=== PATIENT | male | born 1955 | race Caucasian/White ===

== ENCOUNTER 2018-07-19 12:20 | Inpatient (IN) | payer OTHER ==
--- NOTE | 2018-07-19 12:43 | PDOC ---
History of Present Illness - General History Source: [facility] Records - History of Present Illness Associated Symptoms: reports: fever/chills <KimmieGabriela - Last Filed: 07/19/18 16:26> <Naa Sotelo - Last Filed: 07/21/18 09:31> - General Chief Complaint: SIRS, Suspected/Possible Stated Complaint: FEVER Time Seen by Provider: 07/19/18 12:26 Past History - Past Medical History Anemia: Yes Cardiac Disorders: Yes (cad) COPD: No DVT: Yes Dialysis: Yes (t.t.sat) GI Disorders: Yes (gerd,dysphagia) HTN: Yes Hypercholesterolemia: Yes - Surgical History Cardiac Surgery: Yes (cabg) - Suicide/Smoking/Psychosocial Hx Smoking History: Never smoked Hx Alcohol Use: No Drug/Substance Use Hx: No Substance Use Type: None <KimmieGabriela - Last Filed: 07/19/18 16:26> <Naa Sotelo - Last Filed: 07/21/18 09:31> - Past Medical History Allergies/Adverse Reactions: Allergies Allergy/AdvReac Type Severity Reaction Status Date / Time No Known Allergies Allergy Verified 07/19/18 12:22 Home Medications: Ambulatory Orders Acetaminophen [Tylenol] 650 mg PO Q6H PRN 07/19/18 Amlodipine Besylate [Norvasc -] 10 mg PO DAILY 07/19/18 Aspirin [Ecotrin] 325 mg PO DAILY 07/19/18 Atorvastatin Ca [Lipitor] 20 mg PO HS 07/19/18 Calcium Acetate [Phoslo -] 667 mg PO TIDCM 07/19/18 Carvedilol [Coreg -] 12.5 mg PO BID 07/19/18 Clonidine Patch [Catapres Tts Patch -] 0.2 mg TD MCMULLEN 07/19/18 Docusate Sodium [Colace -] 100 mg PO BID 07/19/18 Ergocalciferol [Vitamin D2] 50,000 unit PO MCMULLEN 07/19/18 Folic Acid - 1 mg PO DAILY 07/19/18 Insulin Lispro [Humalog] 0 unit SQ BID PRN 07/19/18 Metoprolol Tartrate [Lopressor -] 50 mg PO BID 07/19/18 Pantoprazole Sodium [Protonix] 40 mg PO DAILY 07/19/18 hydrALAZINE HCL [Apresoline -] 25 mg PO TID 07/19/18 Review of Systems - Review of Systems Able to Perform ROS?: No <BelarusianGabriela - Last Filed: 07/19/18 16:26> *Physical Exam - Vital Signs Last Vital Signs Temp Pulse Resp BP Pulse Ox 100.2 F H 74 20 212/77 87 L 07/19/18 12:22 07/19/18 12:22 07/19/18 12:22 07/19/18 12:22 07/19/18 12:22 - Physical Exam General Appearance: Yes: Mild Distress Neck: positive: Other (distended neck veins on the R) Respiratory/Chest: positive: Decreased Breath Sounds (on the R) Cardiovascular: positive: Regular Rate, S1, S2 Gastrointestinal/Abdominal: positive: Soft. negative: Distended Extremity: positive: Normal Inspection, Other (clead, dry, pressure ulcer to r heel, no e/o infxn) Integumentary: positive: Dry, Warm Neurologic: positive: Alert <BelarusianGabriela - Last Filed: 07/19/18 16:26> - Vital Signs Last Vital Signs Temp Pulse Resp BP Pulse Ox 99.2 F 75 18 144/65 95 07/21/18 05:46 07/21/18 05:46 07/21/18 05:46 07/21/18 05:46 07/20/18 20:55 <Naa Sotelo - Last Filed: 07/21/18 09:31> ED Treatment Course - LABORATORY CBC & Chemistry Diagram: 07/19/18 12:47 07/19/18 12:47 <Gabriela Burks - Last Filed: 07/19/18 16:26> - LABORATORY CBC & Chemistry Diagram: 07/20/18 06:30 07/20/18 06:30 - ADDITIONAL ORDERS Additional order review: 07/19/18 12:47 Blood Culture - Preliminary Blood - Peripheral Venous NO GROWTH OBTAINED AFTER 24 HOURS, INCUBATION TO CONTINUE FOR 4 DAYS. 07/19/18 12:47 Blood Culture - Preliminary Blood - Peripheral Venous NO GROWTH OBTAINED AFTER 24 HOURS, INCUBATION TO CONTINUE FOR 4 DAYS. 07/19/18 13:05 Urine Culture - Final Urine - Urine Clean Catch NO GROWTH OBTAINED 07/19/18 12:47 RBC 3.87 L MCV 85.0 MCHC 33.1 RDW 16.3 H MPV 8.3 Neutrophils % 56.4 Lymphocytes % 19.5 Monocytes % 9.8 Eosinophils % 13.5 H Basophils % 0.8 - RADIOLOGY Radiology Studies Ordered: Category Date Time Status CHEST X-RAY PORTABLE* [RAD] Stat Radiology 07/19/18 12:24 Completed - Medications Given in the ED: ED Medications Discontinued Medications Generic Name Dose Route Start Last Admin Trade Name Freq PRN Reason Stop Dose Admin Amlodipine Besylate 10 mg 07/19/18 14:37 07/19/18 14:59 Norvasc - PO 07/19/18 14:38 10 mg ONCE ONE Administration Carvedilol 12.5 mg 07/19/18 14:37 07/19/18 14:59 Coreg - PO 07/19/18 14:38 12.5 mg ONCE ONE Administration Carvedilol 12.5 mg 07/19/18 22:00 07/20/18 09:21 Coreg - PO 12.5 mg BID BRAD Administration Carvedilol 12.5 mg 07/20/18 11:22 07/20/18 11:36 Coreg - PO 07/20/18 11:23 12.5 mg ONCE ONE Administration Azithromycin 500 mg/ Dextrose 250 mls @ 250 mls/hr 07/19/18 14:02 07/19/18 14 :53 IVPB 07/19/18 15:01 250 mls/hr ONCE ONE Administration Cefepime HCl 1 gm in 50 mls @ 100 mls/hr 07/19/18 14:02 07/19/18 14:53 Maxipime 1 Gm Premix Ivpb IVPB 07/19/18 14:31 Not Given ONCE ONE Protocol Vancomycin HCl 1,000 mg/ 250 mls @ 250 mls/hr 07/19/18 14:02 07/19/18 15:50 Dextrose IVPB 07/19/18 15:01 250 mls/hr ONCE ONE Administration Protocol Cefepime HCl 1 gm in 50 mls @ 100 mls/hr 07/19/18 14:35 07/19/18 14:39 Maxipime 1 Gm Premix Ivpb IVPB 07/19/18 15:04 100 mls/hr ONCE ONE Administration Protocol Metoprolol Tartrate 50 mg 07/19/18 14:37 08/28/18 14:59 Lopressor - PO 07/19/18 14:38 50 mg ONCE ONE Administration Nifedipine 30 mg 07/20/18 10:00 07/20/18 09:19 Procardia Xl - PO 30 mg DAILY BRAD Administration Pneumococcal 13-Valent Conj Vacc 0.5 ml 07/20/18 10:00 07/20/18 09:37 Prevnar 13 Syringe - IM 07/20/18 10:01 Not Given .ONCE ONE <Naa Sotelo - Last Filed: 07/21/18 09:31> Medical Decision Making - Medical Decision Making 07/19/18 12:37 63-year-old male, history of IDDM, HTN, HLD, CAD s/p CABD, ESRD on HD via R chest port (T/T/S), last dialyzed 4 days ago, due for next session today but sent to ED by [facility] for fever of 101 F today. Patient unable to give history given current medical conditions See exam Fever R/o sepsis Low grade fever w/ 87% sat on RA and decreased BS on R Of note, CT chest 06/28 w/ large located effusion and infiltrates, not currently on abx, due for HD today -tylenol -labs -mccabe cx -cxr -ekg -renal c/s for HD today -admit 07/19/18 14:00 07/19/18 14:04 Labs remarkable for sodium of 126, K wnl. UA with 1+ LE and wbc of 44, no nitrite. Chest x-ray read as congestive changes with right-sided effusion and base atelectasis versus infiltrate. Given fever and hypoxia, will give dose of antibiotics in ED to cover possibly hospital acquired pneumonia. Might need pulm consult for input while inhouse. Pending renal consult to arrange HD today. Will arrange admission at this time 07/19/18 14:14 Case d/w Dr Siu of renal who states he will come down to ED to evaluate patient 07/19/18 14:38 Dr Siu at bedside. Recommends treating patient's significantly elevated BP. Also recommending the patient be admitted to telemetry for close observation. Pending call back from Dr. Davenport to admit 07/19/18 16:27 Case d/w Dr Davenport and patient admitted to telemetry. For HD @10pm tonight per renal <Gabriela Burks - Last Filed: 07/19/18 16:26> *DC/Admit/Observation/Transfer - Discharge Dispostion Decision to Admit order: Yes <Gabriela Burks - Last Filed: 07/19/18 16:26> - Attestations Physician Attestion: I reviewed the case with the mid-level practitioner and agree with the mid- level practitioner's assessment, diagnosis and disposition. <Naa Sotelo - Last Filed: 07/21/18 09:31> Diagnosis at time of Disposition: Hypoxia Fever Qualifiers: Fever type: unspecified Qualified Code(s): R50.9 - Fever, unspecified - Discharge Dispostion Condition at time of disposition: Fair
[2018-07-19 13:03] LABS: BASO % 0.8 % (0-2.0); EOS % 13.5 % (0-4.5); HEMATOCRIT 32.9 % (35.4-49); HEMOGLOBIN 10.9 GM/dL (11.7-16.9); LYMPH % 19.5 % (8-40); MCH 28.1 pg (25.7-33.7); MCHC 33.1 g/dl (32.0-35.9); MEAN PLT VOLUME 8.3 fl (7.5-11.1); MONO % 9.8 % (3.8-10.2); NEUT % 56.4 % (42.8-82.8); PLATELET COUNT 168 K/MM3 (134-434); RBC 3.87 M/mm3 (4.00-5.60); RDW 16.3 % (11.9-15.9); WHITE BLOOD COUNT 4.5 K/mm3 (4.0-10.0)
[2018-07-19 13:25] LABS: INR 0.97 (0.83-1.09)
[2018-07-19 13:28] LABS: ACTIVATED PTT 35.3 SECONDS (25.2-36.5)
[2018-07-19 13:35] LABS: URINE APPEARANCE SLCLOUDY; URINE BILIRUBIN NEGATIVE (<2.0 mg/dL); URINE COLOR LTYELLOW; URINE GLUCOSE (UA) 2+ (NEGATIVE); URINE KETONE NEGATIVE (NEGATIVE); URINE LEUK ESTERASE 1+ (NEGATIVE); URINE NITRITE NEGATIVE (NEGATIVE); URINE PROTEIN 3+ (NEGATIVE); URINE UROBILINOGEN NEGATIVE mg/dL (0.2-1.0)
[2018-07-19 13:38] LABS: ALBUMIN 3.2 g/dl (3.4-5.0); ALK PHOS 126 U/L (45-117); ANION GAP 10 MMOL/L (8-16); BILIRUBIN,TOTAL 0.5 mg/dL (0.2-1.0); BLOOD UREA NITROGEN 65 mg/dL (7-18); CALCIUM 8.8 mg/dL (8.5-10.1); CHLORIDE 91 mmol/L (98-107); CO2 25 mmol/L (21-32); CREATININE 7.3 mg/dL (0.7-1.3); GLUCOSE,RANDOM 91 mg/dL (74-106); SGOT/AST 26 U/L (15-37); SGPT/ALT 46 U/L (12-78); SODIUM 126 mmol/L (136-145)
[2018-07-19 13:38] LABS: EPI CELLS RARE /HPF (FEW)
[2018-07-19] MEDS ORDERED: AZITHROMYCIN IVPB 500 MG in DEXTROSE 5%-WATER - 250 ML IVPB ONE (14:02)
[2018-07-19] MEDS ORDERED: VANCOMYCIN 1,000 MG in DEXTROSE 5%-WATER - 250 ML IVPB ONE (14:02)
[2018-07-19] MEDS ORDERED: AZITHROMYCIN IVPB 250 ML IVPB ONE (14:31)
[2018-07-19] MEDS ORDERED: VANCOMYCIN 1 GRAM (PRE-DOCKED) 1,000 MG/250 ML BAG IVPB ONE (14:32)
[2018-07-19] MEDS ORDERED: CEFEPIME 1 GM/100 ML BAG IVPB ONE (14:32)
[2018-07-19] MEDS ORDERED: CEFEPIME HCL/D5W 1 GM/50 ML BAG IVPB ONE (14:35)
[2018-07-19] MEDS ORDERED: CARVEDILOL 12.5 MG TABLET (FP) PO ONE (14:37)
[2018-07-19] MEDS ORDERED: amLODIPine BESYLATE 10 MG TABLET (FP) PO ONE (14:37)
[2018-07-19] MEDS ORDERED: METOPROLOL TARTRATE 50 MG TABLET (FP) PO ONE (14:37)
[2018-07-19] MEDS: CEFEPIME HCL/D5W 1 GM/50 ML BAG IVPB ONE ×2 (14:38→14:53)
[2018-07-19] MEDS ORDERED: CARVEDILOL 12.5 MG TABLET (FP) ONE (14:55)
[2018-07-19] MEDS ORDERED: amLODIPine BESYLATE 5 MG TABLET (FP) ONE (14:55)
--- NOTE | 2018-07-19 18:53 | CONSULT ---
Consult Consult Specialty:: Nephrology Reason for Consultation:: ESRD - History of Present Illness Chief Complaint: sent in for fever History of Present Illness: Pt is a 63 year old male with pmhx of ESRD, HTN, CAD, CABG, and DM who was sent in from [facility] for fever. He is on a TTS HD schedule. He is awake and knows he was sent to the ER for a fever. He does complain of cough. He denies worsening of shortness of breath. He denies chills. He is overall a poor historian. Pt was found to be desaturating at room air and started on oxygen. He gets HD via a chest wall permacath. He does not know how old the permacath is. - History Source History Provided By: Patient, Medical Record - Past Medical History Cardio/Vascular: Yes: CAD, HTN, Hyperlipdemia Gastrointestinal: Yes: Constipation Renal/: Yes: Renal Failure, Hemodialysis Heme/Onc: Yes: Anemia - Past Surgical History Past Surgical History: Yes: CABG - Alcohol/Substance Use Hx Alcohol Use: No - Smoking History Smoking history: Never smoked Home Medications - Allergies Allergies/Adverse Reactions: Allergies Allergy/AdvReac Type Severity Reaction Status Date / Time No Known Allergies Allergy Verified 07/19/18 12:22 - Home Medications Home Medications: Ambulatory Orders Acetaminophen [Tylenol] 650 mg PO Q6H PRN 07/19/18 Amlodipine Besylate [Norvasc -] 10 mg PO DAILY 07/19/18 Aspirin [Ecotrin] 325 mg PO DAILY 07/19/18 Atorvastatin Ca [Lipitor] 20 mg PO HS 07/19/18 Calcium Acetate [Phoslo -] 667 mg PO TIDCM 07/19/18 Carvedilol [Coreg -] 12.5 mg PO BID 07/19/18 Clonidine Patch [Catapres Tts Patch -] 0.2 mg TD MCMULLEN 07/19/18 Docusate Sodium [Colace -] 100 mg PO BID 07/19/18 Ergocalciferol [Vitamin D2] 50,000 unit PO MCMULLEN 07/19/18 Folic Acid - 1 mg PO DAILY 07/19/18 Insulin Lispro [Humalog] 0 unit SQ BID PRN 07/19/18 Metoprolol Tartrate [Lopressor -] 50 mg PO BID 07/19/18 Pantoprazole Sodium [Protonix] 40 mg PO DAILY 07/19/18 hydrALAZINE HCL [Apresoline -] 25 mg PO TID 07/19/18 Family Disease History - Family Disease History Family History: Denies Review of Systems - Review of Systems Constitutional: reports: Malaise Eyes: reports: No Symptoms HENT: reports: No Symptoms Neck: reports: No Symptoms Cardiovascular: reports: Shortness of Breath. denies: Chest Pain Respiratory: reports: Cough, SOB on Exertion Genitourinary: reports: No Symptoms Musculoskeletal: reports: No Symptoms Integumentary: reports: No Symptoms Neurological: reports: No Symptoms Endocrine: reports: No Symptoms Hematology/Lymphatic: reports: No Symptoms Psychiatric: reports: No Symptoms Physical Exam Vital Signs: Vital Signs Temperature 99.5 F 07/19/18 16:30 Pulse Rate 64 07/19/18 16:30 Respiratory Rate 15 07/19/18 16:30 Blood Pressure 152/83 07/19/18 16:30 O2 Sat by Pulse Oximetry (%) 99 07/19/18 16:30 Constitutional: Yes: Calm Eyes: Yes: Conjunctiva Clear HENT: Yes: Atraumatic Neck: Yes: Supple Cardiovascular: Yes: S1, S2 Respiratory: Yes: On Nasal O2, Rhonchi Gastrointestinal: Yes: Soft Renal/: Yes: WNL Musculoskeletal: Yes: WNL Edema: Yes Edema: LLE: Trace, RLE: Trace Neurological: Yes: Oriented Psychiatric: Yes: Oriented Labs: CBC, BMP 07/19/18 12:47 07/19/18 12:47 Microbiology Laboratory Tests 07/19/18 07/19/18 07/19/18 12:47 12:47 13:15 Hgb 10.9 L Sodium 126 L Potassium 5.0 BUN 65 H Creatinine 7.3 H Urine Protein 3+ H Imaging - Results Chest X-ray: Report Reviewed Problem List - Problems (1) ESRD (end stage renal disease) Code(s): N18.6 - END STAGE RENAL DISEASE (2) HTN (hypertension) Code(s): I10 - ESSENTIAL (PRIMARY) HYPERTENSION (3) CAD (coronary artery disease) Code(s): I25.10 - ATHSCL HEART DISEASE OF [place] CORONARY ARTERY W/O ANG PCTRS (4) Hyponatremia Code(s): E87.1 - HYPO-OSMOLALITY AND HYPONATREMIA (5) Fever Code(s): R50.9 - FEVER, UNSPECIFIED Qualifiers: Fever type: unspecified Qualified Code(s): R50.9 - Fever, unspecified (6) Hypoxia Code(s): R09.02 - HYPOXEMIA Assessment/Plan Impression 1. ESRD 2. hyponatremia 3. PNA 4. sepsis 5. pleural effusion 6. CAD 7. hx CABG 8. DM 9. HLD 10. anemia 11. hypoxia Plan - will arrange for HD today - resume bp meds - bp improved with coreg and norvasc in ER - will need to be admitted to a monitored setting - start abx - follow cultures - epogen for anemia - monitor blood sugar - discussed with ER team at bedside - will follow pt Dr Siu
[2018-07-19] MEDS ORDERED: SODIUM CHLORIDE 250 ML IV PRN (18:59)
[2018-07-19] MEDS ORDERED: ACETAMINOPHEN 325 MG TABLET (FP) PO PRN (20:47)
[2018-07-19] MEDS ORDERED: METOPROLOL TARTRATE 50 MG TABLET (FP) PO SCH (22:00)
[2018-07-20] MEDS: hydrALAZINE HCL 25 MG TABLET (FP) PO SCH ×5 (00:20→21:27)
[2018-07-20] MEDS: cloNIDine-TTS 0.2 MG/24 HOURS PATCH.TDWK TD SCH ×2 (00:21→02:31)
[2018-07-20] MEDS: HEPARIN NA (PORCINE) 5,000 UNITS/ML 1ML VIAL SQ SCH ×4 (00:30→21:33)
[2018-07-20] MEDS: DOCUSATE SODIUM 100 MG CAPSULE (FP) PO SCH ×4 (00:30→21:28)
[2018-07-20] MEDS: CARVEDILOL 12.5 MG TABLET (FP) PO SCH ×3 (00:30→09:21)
[2018-07-20] MEDS: ATORVASTATIN CA 20 MG TABLET (FP) PO SCH ×3 (00:31→21:27)
[2018-07-20 07:25] LABS: BASO % 0.9 % (0-2.0); EOS % 25.4 % (0-4.5); HEMATOCRIT 30.5 % (35.4-49); HEMOGLOBIN 10.3 GM/dL (11.7-16.9); LYMPH % 23.1 % (8-40); MCH 28.2 pg (25.7-33.7); MCHC 33.7 g/dl (32.0-35.9); MEAN CELL VOLUME 83.7 fl (80-96); MEAN PLT VOLUME 8.2 fl (7.5-11.1); MONO % 13.7 % (3.8-10.2); NEUT % 36.9 % (42.8-82.8); PLATELET COUNT 146 K/MM3 (134-434); RBC 3.65 M/mm3 (4.00-5.60); RDW 16.4 % (11.9-15.9); WHITE BLOOD COUNT 3.1 K/mm3 (4.0-10.0)
[2018-07-20 07:53] LABS: ALBUMIN 2.9 g/dl (3.4-5.0); ANION GAP 6 MMOL/L (8-16); BILIRUBIN,TOTAL 0.6 mg/dL (0.2-1.0); BLOOD UREA NITROGEN 25 mg/dL (7-18); CALCIUM 8.4 mg/dL (8.5-10.1); CHLORIDE 98 mmol/L (98-107); CO2 33 mmol/L (21-32); GLUCOSE,RANDOM 80 mg/dL (74-106); POTASSIUM 3.6 mmol/L (3.5-5.1); SODIUM 137 mmol/L (136-145)
[2018-07-20 07:56] LABS: ALK PHOS 118 U/L (45-117); SGOT/AST 24 U/L (15-37); SGPT/ALT 41 U/L (12-78); TOT PROT 6.2 g/dl (6.4-8.2)
[2018-07-20] MEDS: CALCIUM ACETATE 667 MG CAPSULE (FP) PO SCH ×3 (08:00→17:54)
[2018-07-20] MEDS: ASPIRIN 325 MG ENTERIC COATED TABLET (FP) PO SCH (09:18)
[2018-07-20] MEDS: PANTOPRAZOLE 40 MG TABLET (FP) PO SCH (09:18)
[2018-07-20] MEDS: FOLIC ACID 1 MG TABLET (FP) PO SCH (09:19)
[2018-07-20] MEDS ORDERED: PNEUMOC 13-VAL CONJ-DIP CRM/PF 0.5 ML DISP.SYRIN IM ONE (10:00)
[2018-07-20] MEDS ORDERED: NIFEdipine E.R. 30 MG TABLET (FP) PO SCH (10:00)
--- NOTE | 2018-07-20 10:11 | HP ---
Admitting History and Physical - Primary Care Physician PCP: Maddie Davenport - Admission Chief Complaint: sent from group home due to fever History of Present Illness: patient seen and examined Case was discussed with emergency room physician last night Currently admitted in telemetry In summary Pt is a 63 year old male with pmhx of ESRD on TTS HD, HTN, CAD, CABG, and DM who was sent in from [facility] for fever 101. He reported cough, but denied worsening of shortness of breath or chest pain. He denies chills. Pt was found to be hypoxic at room air with volume overload and dialyzed over night with improvement in symptoms. He gets HD via a chest wall permacath . patient also given enteric antibiotics for questionable pneumonia cultures was taken Patient also underwent emergent dialysis--due to volume overload and uncontrolled blood pressure Patient seen by me in the telemetry today Comfortable Feels better denies chest pain Decreased shortness of breath Patient is poor historian--unable to tell me how long he is on dialysis Has right-sided Port-A-Cath Afebrile today History Source: Medical Record Limitations to Obtaining History: Clinical Condition, Poor Historian - Past Medical History Cardiovascular: Yes: CAD, HTN, Hyperlipdemia Gastrointestinal: Yes: Constipation Renal/: Yes: Renal Failure, Hemodialysis Heme/Onc: Yes: Anemia - Past Surgical History Past Surgical History: Yes: CABG - Smoking History Smoking history: Never smoked - Alcohol/Substance Use Hx Alcohol Use: No Home Medications - Allergies Allergies/Adverse Reactions: Allergies Allergy/AdvReac Type Severity Reaction Status Date / Time No Known Allergies Allergy Verified 07/19/18 12:22 - Home Medications Home Medications: Ambulatory Orders Acetaminophen [Tylenol] 650 mg PO Q6H PRN 07/19/18 Amlodipine Besylate [Norvasc -] 10 mg PO DAILY 07/19/18 Aspirin [Ecotrin] 325 mg PO DAILY 07/19/18 Atorvastatin Ca [Lipitor] 20 mg PO HS 07/19/18 Calcium Acetate [Phoslo -] 667 mg PO TIDCM 07/19/18 Carvedilol [Coreg -] 12.5 mg PO BID 07/19/18 Clonidine Patch [Catapres Tts Patch -] 0.2 mg TD MCMULLEN 07/19/18 Docusate Sodium [Colace -] 100 mg PO BID 07/19/18 Ergocalciferol [Vitamin D2] 50,000 unit PO MCMULLEN 07/19/18 Folic Acid - 1 mg PO DAILY 07/19/18 Insulin Lispro [Humalog] 0 unit SQ BID PRN 07/19/18 Metoprolol Tartrate [Lopressor -] 50 mg PO BID 07/19/18 Pantoprazole Sodium [Protonix] 40 mg PO DAILY 07/19/18 hydrALAZINE HCL [Apresoline -] 25 mg PO TID 07/19/18 Review of Systems - Review of Systems Constitutional: reports: Fever Eyes: reports: No Symptoms Neck: reports: No Symptoms Respiratory: reports: SOB Gastrointestinal: reports: No Symptoms Neurological: reports: No Symptoms Psychiatric: reports: No Symptoms Physical Examination Vital Signs: Vital Signs Temperature 98.6 F 07/20/18 08:00 Pulse Rate 72 07/20/18 08:00 Respiratory Rate 22 07/20/18 08:00 Blood Pressure 186/85 07/20/18 08:00 O2 Sat by Pulse Oximetry (%) 95 07/20/18 09:00 Constitutional: Yes: No Distress, Calm Eyes: Yes: Conjunctiva Clear Neck: Yes: Supple, Other (No JVD) Cardiovascular: Yes: Regular Rate and Rhythm Respiratory: Yes: Diminished Gastrointestinal: Yes: Soft Edema: No Neurological: Yes: Alert (poor historian. Nonfocal exam) Labs: CBC, BMP 07/20/18 06:30 07/20/18 06:30 Imaging - Results Chest X-ray: Report Reviewed EKG: Report Reviewed Problem List - Problems (1) CAD (coronary artery disease) Code(s): I25.10 - ATHSCL HEART DISEASE OF [place] CORONARY ARTERY W/O ANG PCTRS Qualifiers: Coronary Disease-Associated Artery/Lesion type: [place] artery [place] vs. transplanted heart: [place] heart Associated angina: without angina Qualified Code(s): I25.10 - Atherosclerotic heart disease of [place] coronary artery without angina pectoris (2) Fever Code(s): R50.9 - FEVER, UNSPECIFIED Qualifiers: Fever type: unspecified Qualified Code(s): R50.9 - Fever, unspecified (3) Hypertensive cardiomyopathy Code(s): I11.9 - HYPERTENSIVE HEART DISEASE WITHOUT HEART FAILURE; I43 - CARDIOMYOPATHY IN DISEASES CLASSIFIED ELSEWHERE Qualifiers: Heart failure presence: with heart failure Qualified Code(s): I11.0 - Hypertensive heart disease with heart failure; I43 - Cardiomyopathy in diseases classified elsewhere (4) Hypoxia Code(s): R09.02 - HYPOXEMIA Assessment/Plan monitor on telemetry Consult pulmonary and cardiology Hold antibiotics--- doubt pneumonia Will consult ID also dialysis as per renal Increase Procardia check echocardiogram Monitor blood sugar Overall condition guarded due to multiple comorbidities Will follow Discussed with nursing staff also.
--- NOTE | 2018-07-20 10:48 | EKG ---
Test Reason : Blood Pressure : / mmHG Vent. Rate : 068 BPM Atrial Rate : 068 BPM P-R Int : 166 ms QRS Dur : 092 ms QT Int : 424 ms P-R-T Axes : 003 006 083 degrees QTc Int : 450 ms NORMAL SINUS RHYTHM INCOMPLETE RIGHT BUNDLE BRANCH BLOCK ANTEROSEPTAL INFARCT , AGE UNDETERMINED ABNORMAL ECG NO PREVIOUS ECGS AVAILABLE Confirmed by EUGENE ORTEGA MD ([id number]) on 07/20/2018 10:48:35 AM Referred By: Confirmed By:EUGENE ORTEGA MD
--- NOTE | 2018-07-20 11:08 | CON.CARD ---
Consult Consult Specialty:: Cardiology Referred by:: Maddie Davenport MD Reason for Consultation:: CAD s/p CABG, HTN urgency - History of Present Illness Chief Complaint: Fever History of Present Illness: Pt is a 63 year old male with pmhx of ESRD on TTS HD, HTN, CAD, CABG, and DM who was sent in from [facility] for fever 101. He reported cough, but denied worsening of shortness of breath or chest pain. He denies chills. He is overall a poor historian. Pt was found to be hypoxic at room air with volume overload and dialyzed overnght with improvement in symptoms. He gets HD via a chest wall permacath of unknown age, found to have elevated BP, HD overnight, no longer febrile. - History Source History Provided By: Medical Record Limitations to Obtaining History: Poor Historian - Past Medical History Cardio/Vascular: Yes: CAD, HTN, Hyperlipdemia Gastrointestinal: Yes: Constipation Renal/: Yes: Renal Failure, Hemodialysis - Past Surgical History Past Surgical History: Yes: CABG - Alcohol/Substance Use Hx Alcohol Use: No - Smoking History Smoking history: Never smoked Home Medications - Allergies Allergies/Adverse Reactions: Allergies Allergy/AdvReac Type Severity Reaction Status Date / Time No Known Allergies Allergy Verified 07/19/18 12:22 - Home Medications Home Medications: Ambulatory Orders Acetaminophen [Tylenol] 650 mg PO Q6H PRN 07/19/18 Amlodipine Besylate [Norvasc -] 10 mg PO DAILY 07/19/18 Aspirin [Ecotrin] 325 mg PO DAILY 07/19/18 Atorvastatin Ca [Lipitor] 20 mg PO HS 07/19/18 Calcium Acetate [Phoslo -] 667 mg PO TIDCM 07/19/18 Carvedilol [Coreg -] 12.5 mg PO BID 07/19/18 Clonidine Patch [Catapres Tts Patch -] 0.2 mg TD MCMULLEN 07/19/18 Docusate Sodium [Colace -] 100 mg PO BID 07/19/18 Ergocalciferol [Vitamin D2] 50,000 unit PO MCMULLEN 07/19/18 Folic Acid - 1 mg PO DAILY 07/19/18 Insulin Lispro [Humalog] 0 unit SQ BID PRN 07/19/18 Metoprolol Tartrate [Lopressor -] 50 mg PO BID 07/19/18 Pantoprazole Sodium [Protonix] 40 mg PO DAILY 07/19/18 hydrALAZINE HCL [Apresoline -] 25 mg PO TID 07/19/18 Review of Systems - Review of Systems Constitutional: reports: Fever Vital Signs: Vital Signs Temperature 98.6 F 07/20/18 08:00 Pulse Rate 72 07/20/18 08:00 Respiratory Rate 22 07/20/18 08:00 Blood Pressure 186/85 07/20/18 08:00 O2 Sat by Pulse Oximetry (%) 95 07/20/18 09:00 Constitutional: Yes: No Distress, Calm, Thin Neck: Yes: Supple Respiratory: Yes: Regular, Diminished, On Nasal O2 Gastrointestinal: Yes: Normal Bowel Sounds, Soft Cardiovascular: Yes: Regular Rate and Rhythm JVD: No Carotid Bruit: No Heart Sounds: Yes: S1, S2 Murmur: Yes: Systolic Murmur, Grade 1 Edema: No - Other Data Labs, Other Data: CBC, BMP 07/20/18 06:30 07/20/18 06:30 INR, PTT INR 0.97 (0.83-1.09) 07/19/18 12:47 Troponin, BNP 07/19/18 07/19/18 12:47 13:15 Troponin I 0.02 B-Natriuretic Peptide 69621.98 H Troponin, BNP 07/19/18 07/19/18 12:47 13:15 Troponin I 0.02 B-Natriuretic Peptide 70610.98 H Imaging - Results Chest X-ray: Report Reviewed (R>L effusion, congestion) Problem List - Problems (1) CAD (coronary artery disease) Code(s): I25.10 - ATHSCL HEART DISEASE OF [place] CORONARY ARTERY W/O ANG PCTRS Qualifiers: Coronary Disease-Associated Artery/Lesion type: [place] artery [place] vs. transplanted heart: [place] heart Associated angina: without angina Qualified Code(s): I25.10 - Atherosclerotic heart disease of [place] coronary artery without angina pectoris (2) ESRD (end stage renal disease) Code(s): N18.6 - END STAGE RENAL DISEASE (3) Fever Code(s): R50.9 - FEVER, UNSPECIFIED Qualifiers: Fever type: unspecified Qualified Code(s): R50.9 - Fever, unspecified (4) Hypoxia Code(s): R09.02 - HYPOXEMIA (5) S/P CABG (coronary artery bypass graft) Code(s): Z95.1 - PRESENCE OF AORTOCORONARY BYPASS GRAFT (6) Hypertensive cardiomyopathy Code(s): I11.9 - HYPERTENSIVE HEART DISEASE WITHOUT HEART FAILURE; I43 - CARDIOMYOPATHY IN DISEASES CLASSIFIED ELSEWHERE Qualifiers: Heart failure presence: with heart failure Qualified Code(s): I11.0 - Hypertensive heart disease with heart failure; I43 - Cardiomyopathy in diseases classified elsewhere (7) Acute on chronic diastolic heart failure Code(s): I50.33 - ACUTE ON CHRONIC DIASTOLIC (CONGESTIVE) HEART FAILURE Assessment/Plan 1. Acute hypoxic respiratory failure referable to 2. Acute on chronic diastolic failure with pleural effusions R>L 3. ESRD on HD TTS 4. CAD s/p CABG, angina pectoris 5. HTN urgency 6. Fever, r/o sepsis 7. Type 2 DM 8. Hyperlipidemia 9. Anemia of CKD 10. Hyponatremia resolved P:1. Volume removal via HD, wean FIO2 as tolerated 2. Observe off empiric abx with f/u C&S 3. Agree with Procardia XL 60 qd, continue ASA 325 qd, Lipitor 20 qhs, increased carvedilol 25 bid, catapres patch, hydralazine 25 tid with uptitration as tolerated, consider ARB if hyperkalemia not an issue 4. F/u echocardiogram to assess ventricular and valve fxn 5. DVT and GI prophylaxis 6. Thank you for consultative opportunity
[2018-07-20] MEDS: NIFEdipine E.R 60 MG TABLET (UD) PO SCH (11:10)
[2018-07-20] MEDS ORDERED: CARVEDILOL 12.5 MG TABLET (FP) PO ONE (11:22)
--- NOTE | 2018-07-20 11:22 | PN ---
Progress Note, Physician History of Present Illness: Pt seen and examined at bedside. He is awake and alert. He tolerated HD yesterday. - Current Medication List Current Medications: Active Medications Acetaminophen (Tylenol -) 650 mg PO Q6H PRN PRN Reason: FEVER Last Admin: 07/20/18 02:32 Dose: 650 mg Aspirin (Ecotrin -) 325 mg PO DAILY [facility] Last Admin: 07/20/18 09:18 Dose: 325 mg Atorvastatin Calcium (Lipitor -) 20 mg PO HS [facility] Last Admin: 07/20/18 02:32 Dose: 20 mg Calcium Acetate (Phoslo -) 667 mg PO TIDCM [facility] Last Admin: 07/20/18 08:00 Dose: 667 mg Carvedilol (Coreg -) 12.5 mg PO BID [facility] Last Admin: 07/20/18 09:21 Dose: 12.5 mg Clonidine HCl (Catapres Tts Patch -) 0.2 mg TD Tu@2200 [facility] Last Admin: 07/20/18 02:31 Dose: 0.2 mg Docusate Sodium (Colace -) 100 mg PO BID [facility] Last Admin: 07/20/18 09:20 Dose: 100 mg Ergocalciferol (Drisdol -) 50,000 unit PO Olivier@1000 [facility] Folic Acid (Folic Acid -) 1 mg PO DAILY [facility] Last Admin: 07/20/18 09:19 Dose: 1 mg Heparin Sodium (Porcine) (Heparin -) 5,000 unit SQ BID [facility] Last Admin: 07/20/18 09:22 Dose: 5,000 unit Hydralazine HCl (Apresoline -) 25 mg PO TID [facility] Last Admin: 07/20/18 05:50 Dose: Not Given Sodium Chloride (Normal Saline -) 250 mls @ 3,000 mls/hr IV PRN PRN PRN Reason: Hypotension during Dialysis Stop: 07/20/18 18:59 Nifedipine (Procardia Xl -) 60 mg PO DAILY [facility] Last Admin: 07/20/18 11:10 Dose: 60 mg Pantoprazole Sodium (Protonix -) 40 mg PO DAILY [facility] Last Admin: 07/20/18 09:18 Dose: 40 mg - Objective Vital Signs: Vital Signs Temperature 98.6 F 07/20/18 08:00 Pulse Rate 72 07/20/18 08:00 Respiratory Rate 22 07/20/18 08:00 Blood Pressure 186/85 07/20/18 08:00 O2 Sat by Pulse Oximetry (%) 95 07/20/18 09:00 Constitutional: Yes: Calm Eyes: Yes: Conjunctiva Clear HENT: Yes: Atraumatic Cardiovascular: Yes: S1, S2 Respiratory: Yes: On Nasal O2 Gastrointestinal: Yes: Soft Genitourinary: Yes: WNL Musculoskeletal: Yes: WNL Edema: No Neurological: Yes: Oriented Labs: CBC, BMP 07/20/18 06:30 07/20/18 06:30 INR, PTT INR 0.97 (0.83-1.09) 07/19/18 12:47 Problem List - Problems (1) ESRD (end stage renal disease) Code(s): N18.6 - END STAGE RENAL DISEASE (2) HTN (hypertension) Code(s): I10 - ESSENTIAL (PRIMARY) HYPERTENSION (3) CAD (coronary artery disease) Code(s): I25.10 - ATHSCL HEART DISEASE OF [place] CORONARY ARTERY W/O ANG PCTRS (4) Hyponatremia Code(s): E87.1 - HYPO-OSMOLALITY AND HYPONATREMIA (5) Fever Code(s): R50.9 - FEVER, UNSPECIFIED Qualifiers: Qualified Code(s): R50.9 - Fever, unspecified (6) Hypoxia Code(s): R09.02 - HYPOXEMIA Assessment/Plan Current Medications Generic Name Dose Route Start Last Admin Trade Name Freq PRN Reason Stop Dose Admin Acetaminophen 650 mg 07/19/18 20:47 07/20/18 02:32 Tylenol - PO 650 mg Q6H PRN Administration FEVER Aspirin 325 mg 07/20/18 10:00 07/20/18 09:18 Ecotrin - PO 325 mg DAILY BARD Administration Atorvastatin Calcium 20 mg 07/19/18 22:00 07/20/18 02:32 Lipitor - PO 20 mg HS BRAD Administration Calcium Acetate 667 mg 07/20/18 08:00 07/20/18 08:00 Phoslo - PO 667 mg TIDCM [facility]AD Administration Carvedilol 12.5 mg 07/19/18 22:00 07/20/18 09:21 Coreg - PO 12.5 mg BID BRAD Administration Clonidine HCl 0.2 mg 07/19/18 22:00 07/20/18 02:31 Catapres Tts Patch - TD 0.2 mg Tu@2200 [facility] Administration Docusate Sodium 100 mg 07/19/18 22:00 07/20/18 09:20 Colace - PO 100 mg BID [facility]AD Administration Ergocalciferol 50,000 unit 07/24/18 10:00 Drisdol - PO Olivier@1000 [facility] Folic Acid 1 mg 07/20/18 10:00 07/20/18 09:19 Folic Acid - PO 1 mg DAILY [facility] Administration Heparin Sodium (Porcine) 5,000 unit 07/19/18 22:00 07/20/18 09:22 Heparin - SQ 5,000 unit BID [facility] Administration Hydralazine HCl 25 mg 07/19/18 22:00 07/20/18 05:50 Apresoline - PO Not Given TID [facility] Sodium Chloride 250 mls @ 3,000 mls/hr 07/19/18 18:59 Normal Saline - IV 07/20/18 18:59 PRN PRN Hypotension during Dialysis Nifedipine 60 mg 07/20/18 10:15 07/20/18 11:10 Procardia Xl - PO 60 mg DAILY [facility] Administration Pantoprazole Sodium 40 mg 07/20/18 10:00 07/20/18 09:18 Protonix - PO 40 mg DAILY [facility] Administration Impression 1. ESRD 2. hyponatremia 3. PNA 4. sepsis 5. pleural effusion 6. CAD 7. hx CABG 8. DM 9. HLD 10. anemia 11. hypoxia Plan - pt tolerated HD yesterday - increase dose of coreg - can increase procardia after than - cardio input pending - spoke to HD, BP chronically elevated - follow cultuers - HD tomorrow - hold epogen until bp is better controlled - will follow pt Dr Siu
[2018-07-20 12:06] LABS: ANISOCYTOSIS 1+; MACROCYTOSIS 0; PLATELET ESTIMATE DECREASED
--- NOTE | 2018-07-20 13:03 | PN ---
Progress Note (short form) - Note Progress Note: PULMONARY CONSULTATION DICTATED 07/20/18 IMP ACUTE HYPOXEMIC RESPIRATORY FAILURE ACUTE ON CHRONIC CHF FEVER ? PNEUMONIA LOCULATED R PLEURAL EFFUSION ? PARAPNEUMONIC ASHD S/P CABG ESRD ON HD EOSINOPHILIA HYPERTENSIVE URGENCY ANEMIA PLAN O2 HD PER RENAL ABX CULTURES DIAGNOSTIC THORACENTESIS TITRATE BP MEDS MONITOR LYTES,CBC,EOSINOPHIL CT CONSIDER HEMATOLOGY EVALUATION DR MELENDREZ
--- NOTE | 2018-07-20 15:06 | CON.ID ---
Consult Consult Specialty:: infectious diseases Referred by:: Reason for Consultation:: fever - History of Present Illness Chief Complaint: fever History of Present Illness: 63 year old male with pmhx of ESRD, HTN, CAD, CABG, and DM who was sent in from [facility] for fever. He is on a TTS HD schedule. He is awake and knows he was sent to the ER for a fever. He does complain of cough. patient was found to be destaurating and was started on room air.patient does look sick patient is not able to really give any history patient was admitted and worked up - History Source History Provided By: Patient, Medical Record Limitations to Obtaining History: Poor Historian - Past Medical History Cardio/Vascular: Yes: CAD, HTN, Hyperlipdemia Gastrointestinal: Yes: Constipation Renal/: Yes: Renal Failure, Hemodialysis - Past Surgical History Past Surgical History: Yes: CABG - Alcohol/Substance Use Hx Alcohol Use: No - Smoking History Smoking history: Never smoked Home Medications - Allergies Allergies/Adverse Reactions: Allergies Allergy/AdvReac Type Severity Reaction Status Date / Time No Known Allergies Allergy Verified 07/19/18 12:22 - Home Medications Home Medications: Ambulatory Orders Acetaminophen [Tylenol] 650 mg PO Q6H PRN 07/19/18 Amlodipine Besylate [Norvasc -] 10 mg PO DAILY 07/19/18 Aspirin [Ecotrin] 325 mg PO DAILY 07/19/18 Atorvastatin Ca [Lipitor] 20 mg PO HS 07/19/18 Calcium Acetate [Phoslo -] 667 mg PO TIDCM 07/19/18 Carvedilol [Coreg -] 12.5 mg PO BID 07/19/18 Clonidine Patch [Catapres Tts Patch -] 0.2 mg TD MCMULLEN 07/19/18 Docusate Sodium [Colace -] 100 mg PO BID 07/19/18 Ergocalciferol [Vitamin D2] 50,000 unit PO MCMULLEN 07/19/18 Folic Acid - 1 mg PO DAILY 07/19/18 Insulin Lispro [Humalog] 0 unit SQ BID PRN 07/19/18 Metoprolol Tartrate [Lopressor -] 50 mg PO BID 07/19/18 Pantoprazole Sodium [Protonix] 40 mg PO DAILY 07/19/18 hydrALAZINE HCL [Apresoline -] 25 mg PO TID 07/19/18 Review of Systems - Review of Systems Constitutional: reports: Fever, Weakness. denies: Chills Eyes: reports: No Symptoms HENT: reports: No Symptoms Neck: reports: No Symptoms Cardiovascular: reports: No Symptoms Respiratory: reports: Cough, SOB Gastrointestinal: reports: No Symptoms Genitourinary: reports: No Symptoms Musculoskeletal: reports: No Symptoms Integumentary: reports: No Symptoms Neurological: reports: No Symptoms Endocrine: reports: No Symptoms Hematology/Lymphatic: reports: No Symptoms Psychiatric: reports: No Symptoms Physical Exam Vital Signs: Vital Signs Temperature 98.0 F 07/20/18 14:00 Pulse Rate 66 07/20/18 14:00 Respiratory Rate 22 07/20/18 08:00 Blood Pressure 103/55 07/20/18 14:00 O2 Sat by Pulse Oximetry (%) 95 07/20/18 09:00 Constitutional: Yes: No Distress, Calm Neck: Yes: Supple Cardiovascular: Yes: Regular Rate and Rhythm Respiratory: Yes: Poor Air Entry (at the left base), Other Gastrointestinal: Yes: Normal Bowel Sounds, Soft Musculoskeletal: Yes: WNL Extremities: Yes: WNL Neurological: Yes: Alert, Other Psychiatric: Yes: Alert Labs: CBC, BMP 07/20/18 06:30 07/20/18 06:30 Imaging - Results Chest X-ray: Report Reviewed, Image Reviewed Assessment/Plan looking at the p[atient symptoms i am worried if he has parapneumonic infection and the way he became sob and spiked a fever does he acute pneumonia due to strep also his eosinophils have been increasing and they are high and if the eosinphils do not trend down then we can look it from simple point of view that does this patient have any parasitic infection and then work him up Problem List - Problems (1) CAD (coronary artery disease) Code(s): I25.10 - ATHSCL HEART DISEASE OF [place] CORONARY ARTERY W/O ANG PCTRS Qualifiers: Coronary Disease-Associated Artery/Lesion type: [place] artery [place] vs. transplanted heart: [place] heart Associated angina: without angina Qualified Code(s): I25.10 - Atherosclerotic heart disease of [place] coronary artery without angina pectoris (2) Fever Code(s): R50.9 - FEVER, UNSPECIFIED Qualifiers: Fever type: unspecified Qualified Code(s): R50.9 - Fever, unspecified (3) Hypertensive cardiomyopathy Code(s): I11.9 - HYPERTENSIVE HEART DISEASE WITHOUT HEART FAILURE; I43 - CARDIOMYOPATHY IN DISEASES CLASSIFIED ELSEWHERE Qualifiers: Heart failure presence: with heart failure Qualified Code(s): I11.0 - Hypertensive heart disease with heart failure; I43 - Cardiomyopathy in diseases classified elsewhere (4) Hypoxia Code(s): R09.02 - HYPOXEMIA 5 pleural effusion 5 eosinophilia plan 1 will start patient on abx ordered urine for pneumonia ct scan of the chest--ordered monitor closely for fevers follow eosionphils might order stool studies rest as per the team resp support
[2018-07-20] MEDS ORDERED: PIPERACILLIN/TAZOBACTAM 2.25 GM VIAL IVPB ONE (15:30)
[2018-07-20] MEDS ORDERED: DEXTROSE 5%-WATER - 100 ML IVPB ONE (15:30)
[2018-07-20] MEDS: PIPERACILLIN/TAZOB 2.25 GM 2.25 GM in DEXTROSE 5%-WATER - 50 ML IVPB SCH ×2 (15:48→17:54)
--- NOTE | 2018-07-20 16:43 | ECHO ---
Name: GRAHAM LINDER Exam:Adult Echocardiogram Study Date: 07/20/2018 09:40 AM Age: 63 yrs Reason For Study: SOB Height: 66 in Weight: 149 lb BSA: 1.8 m2 MMode/2D Measurements & Calculations IVSd: 0.82 cm Ao root diam: 2.9 cm LVIDd: 5.6 cm LA dimension: 4.8 cm LVIDs: 3.6 cm ACS: 1.7 cm LVPWd: 1.1 cm IVSs: 1.3 cm LVPWs: 1.4 cm EDV(Teich): 153.0 ml ESV(Teich): 53.2 ml Doppler Measurements & Calculations MV E max cholo: 119.0 cm/sec Ao V2 max: 161.5 cm/sec MV A max cholo: 56.3 cm/sec Ao max P.4 mmHg MV E/A: 2.1 Ao V2 mean: 107.9 cm/sec Ao mean P.3 mmHg Ao V2 VTI: 33.0 cm MR max cholo: 619.5 cm/sec TR max cholo: 323.7 cm/sec MR max P.9 mmHg TR max P.0 mmHg Med Peak E' [place]: 5.2 cm/sec Med E/e': 23.1 Lat Peak E' [place]: 4.9 cm/sec Lat E/e': 24.1 Procedure A two-dimensional transthoracic echocardiogram with color flow and Doppler was performed. Left Ventricle The left ventricle is grossly normal size. The left ventricular ejection fraction is normal. The left ventricular wall motion is normal. Atria The left atrium is moderately dilated. The right atrium is moderately dilated. The atrial septum is aneurysmal. Mitral Valve There is moderate mitral valve thickening. Calcified mitral apparatus. There is moderate mitral annul ar calcification. There is no mitral valve stenosis. There is moderate to severe mitral regurgitation. Tricuspid Valve There is mild tricuspid valve thickening. There is no tricuspid stenosis. There is moderate to severe tricuspid regurgitation. Right ventricular systolic pressure is elevated at 40-50mmHg. Aortic Valve There is mild to moderate aortic valve thickening. The aortic valve is trileaflet. No hemodynamically significant valvular aortic stenosis. No aortic regurgitation is present. Pulmonic Valve The pulmonic valve is not well visualized. There is no pulmonic valvular stenosis. There is no pulmon ic valvular regurgitation. Great Vessels The aortic root is normal size. Pericardium/Pleura There is no pericardial effusion. Interpretation Summary There is moderate mitral valve thickening. The left atrium is moderately dilated. The right atrium is moderately dilated. Right ventricular systolic pressure is elevated at 40-50mmHg. The left ventricular ejection fraction is normal. The left ventricular wall motion is normal. There is moderate to severe mitral regurgitation. Calcified mitral apparatus. There is moderate mitral annular calcification. There is moderate to severe tricuspid regurgitation. There is mild to moderate aortic valve thickening. MD Deondre Nagel 07/20/2018 02:26 PM
[2018-07-20] MEDS: CARVEDILOL 25 MG TABLET (FP) PO SCH (21:29)
[2018-07-21] MEDS ORDERED: DEXTROSE 5%-WATER - 50 ML IVPB ONE ×2 (01:14→11:03)
[2018-07-21] MEDS ORDERED: PIPERACILLIN/TAZOBACTAM 2.25 GM VIAL IVPB ONE ×2 (01:14→11:03)
[2018-07-21] MEDS: PIPERACILLIN/TAZOB 2.25 GM 2.25 GM in DEXTROSE 5%-WATER - 50 ML IVPB SCH ×3 (01:40→16:59)
[2018-07-21] MEDS: hydrALAZINE HCL 25 MG TABLET (FP) PO SCH ×3 (05:53→21:11)
[2018-07-21] MEDS: CALCIUM ACETATE 667 MG CAPSULE (FP) PO SCH ×3 (07:47→16:58)
--- NOTE | 2018-07-21 09:20 | PN ---
Progress Note, Physician History of Present Illness: Afebrile, dyspnea and BP control improved, studies reviewed. - Current Medication List Current Medications: Active Medications Acetaminophen (Tylenol -) 650 mg PO Q6H PRN PRN Reason: FEVER Last Admin: 07/20/18 02:32 Dose: 650 mg Aspirin (Ecotrin -) 325 mg PO DAILY [facility] Last Admin: 07/20/18 09:18 Dose: 325 mg Atorvastatin Calcium (Lipitor -) 20 mg PO HS [facility] Last Admin: 07/20/18 21:27 Dose: 20 mg Calcium Acetate (Phoslo -) 667 mg PO TIDCM [facility] Last Admin: 07/21/18 07:47 Dose: 667 mg Carvedilol (Coreg -) 25 mg PO BID [facility] Last Admin: 07/20/18 21:29 Dose: 25 mg Clonidine HCl (Catapres Tts Patch -) 0.2 mg TD Tu@2200 [facility] Last Admin: 07/20/18 02:31 Dose: 0.2 mg Docusate Sodium (Colace -) 100 mg PO BID [facility] Last Admin: 07/20/18 21:28 Dose: 100 mg Ergocalciferol (Drisdol -) 50,000 unit PO Olivier@1000 [facility] Folic Acid (Folic Acid -) 1 mg PO DAILY [facility] Last Admin: 07/20/18 09:19 Dose: 1 mg Heparin Sodium (Porcine) (Heparin -) 5,000 unit SQ BID [facility] Last Admin: 07/20/18 21:33 Dose: 5,000 unit Hydralazine HCl (Apresoline -) 25 mg PO TID [facility] Last Admin: 07/21/18 05:53 Dose: 25 mg Sodium Chloride (Normal Saline -) 250 mls @ 3,000 mls/hr IV PRN PRN PRN Reason: Hypotension during Dialysis Stop: 07/20/18 18:59 Piperacillin Sod/Tazobactam (Sod 2.25 gm/ Dextrose) 50 mls @ 100 mls/hr IVPB Q8H-IV [facility]; Protocol Last Admin: 07/21/18 01:40 Dose: 100 mls/hr Nifedipine (Procardia Xl -) 60 mg PO DAILY [facility] Last Admin: 07/20/18 11:10 Dose: 60 mg Pantoprazole Sodium (Protonix -) 40 mg PO DAILY [facility] Last Admin: 07/20/18 09:18 Dose: 40 mg - Objective Vital Signs: Vital Signs Temperature 99.2 F 07/21/18 05:46 Pulse Rate 75 07/21/18 05:46 Respiratory Rate 18 07/21/18 05:46 Blood Pressure 144/65 07/21/18 05:46 O2 Sat by Pulse Oximetry (%) 95 07/20/18 20:55 Constitutional: Yes: No Distress, Calm, Thin Neck: Yes: Supple Cardiovascular: Yes: Regular Rate and Rhythm Respiratory: Yes: Regular, Diminished (R>L) Gastrointestinal: Yes: Normal Bowel Sounds, Soft Edema: No Labs: CBC, BMP 07/20/18 06:30 07/20/18 06:30 INR, PTT INR 0.97 (0.83-1.09) 07/19/18 12:47 - ....Imaging EKG: Report Reviewed (Tele: SR) Problem List - Problems (1) CAD (coronary artery disease) Code(s): I25.10 - ATHSCL HEART DISEASE OF [place] CORONARY ARTERY W/O ANG PCTRS Qualifiers: Coronary Disease-Associated Artery/Lesion type: [place] artery [place] vs. transplanted heart: [place] heart Associated angina: without angina Qualified Code(s): I25.10 - Atherosclerotic heart disease of [place] coronary artery without angina pectoris (2) ESRD (end stage renal disease) Code(s): N18.6 - END STAGE RENAL DISEASE (3) Fever Code(s): R50.9 - FEVER, UNSPECIFIED Qualifiers: Fever type: unspecified Qualified Code(s): R50.9 - Fever, unspecified (4) Hypoxia Code(s): R09.02 - HYPOXEMIA (5) S/P CABG (coronary artery bypass graft) Code(s): Z95.1 - PRESENCE OF AORTOCORONARY BYPASS GRAFT (6) Hypertensive cardiomyopathy Code(s): I11.9 - HYPERTENSIVE HEART DISEASE WITHOUT HEART FAILURE; I43 - CARDIOMYOPATHY IN DISEASES CLASSIFIED ELSEWHERE Qualifiers: Heart failure presence: with heart failure Qualified Code(s): I11.0 - Hypertensive heart disease with heart failure; I43 - Cardiomyopathy in diseases classified elsewhere (7) Acute on chronic diastolic heart failure Code(s): I50.33 - ACUTE ON CHRONIC DIASTOLIC (CONGESTIVE) HEART FAILURE (8) Pleural effusion due to CHF (congestive heart failure) Code(s): I50.9 - HEART FAILURE, UNSPECIFIED Assessment/Plan 07/20/2018 Echo: Mod BRITTANY, normal LV size and fxn, mod-severe MR, TR, mod MAC 07/20/[address]: Large right>small left effusion, RML mass vs consolidation 1. Acute hypoxic respiratory failure referable to 2. Acute on chronic diastolic failure with pleural effusions R>L 3. ESRD on HD TTS 4. CAD s/p CABG, angina pectoris 5. HTN urgency improved 6. Fever, r/o sepsis 7. Type 2 DM 8. Hyperlipidemia 9. Anemia of CKD 10. Hyponatremia resolved 11. RML PNA vs mass P:1. Volume removal via HD, wean FIO2 as tolerated 2. On empiric abx with f/u C&S, repeat chest CT several months 3. Continue Procardia XL 60 qd, ASA 325 qd, Lipitor 20 qhs, carvedilol 25 bid, catapres patch, hydralazine 25 tid with uptitration as tolerated, consider ARB if hyperkalemia not an issue 4. DVT and GI prophylaxis
--- NOTE | 2018-07-21 11:59 | PN ---
Progress Note, Physician History of Present Illness: pulmonary no distress,s/p thoracentesis,tolerated procedure well w/o complications - Current Medication List Current Medications: Active Medications Acetaminophen (Tylenol -) 650 mg PO Q6H PRN PRN Reason: FEVER Last Admin: 07/20/18 02:32 Dose: 650 mg Aspirin (Ecotrin -) 325 mg PO DAILY [facility] Last Admin: 07/20/18 09:18 Dose: 325 mg Atorvastatin Calcium (Lipitor -) 20 mg PO HS [facility] Last Admin: 07/20/18 21:27 Dose: 20 mg Calcium Acetate (Phoslo -) 667 mg PO TIDCM [facility] Last Admin: 07/21/18 07:47 Dose: 667 mg Carvedilol (Coreg -) 25 mg PO BID [facility] Last Admin: 07/20/18 21:29 Dose: 25 mg Clonidine HCl (Catapres Tts Patch -) 0.2 mg TD Tu@2200 [facility] Last Admin: 07/20/18 02:31 Dose: 0.2 mg Docusate Sodium (Colace -) 100 mg PO BID [facility] Last Admin: 07/20/18 21:28 Dose: 100 mg Ergocalciferol (Drisdol -) 50,000 unit PO Olivier@1000 [facility] Folic Acid (Folic Acid -) 1 mg PO DAILY [facility] Last Admin: 07/20/18 09:19 Dose: 1 mg Heparin Sodium (Porcine) (Heparin -) 5,000 unit SQ BID [facility] Last Admin: 07/20/18 21:33 Dose: 5,000 unit Hydralazine HCl (Apresoline -) 25 mg PO TID [facility] Last Admin: 07/21/18 05:53 Dose: 25 mg Sodium Chloride (Normal Saline -) 250 mls @ 3,000 mls/hr IV PRN PRN PRN Reason: Hypotension during Dialysis Stop: 07/20/18 18:59 Piperacillin Sod/Tazobactam (Sod 2.25 gm/ Dextrose) 50 mls @ 100 mls/hr IVPB Q8H-IV [facility]; Protocol Last Admin: 07/21/18 01:40 Dose: 100 mls/hr Nifedipine (Procardia Xl -) 60 mg PO DAILY [facility] Last Admin: 07/20/18 11:10 Dose: 60 mg Pantoprazole Sodium (Protonix -) 40 mg PO DAILY [facility] Last Admin: 07/20/18 09:18 Dose: 40 mg - Objective Vital Signs: Vital Signs Temperature 99.2 F 07/21/18 05:46 Pulse Rate 75 07/21/18 05:46 Respiratory Rate 18 07/21/18 05:46 Blood Pressure 144/65 07/21/18 05:46 O2 Sat by Pulse Oximetry (%) 95 07/20/18 20:55 Constitutional: Yes: Well Nourished, Calm Eyes: Yes: WNL HENT: Yes: WNL Neck: Yes: WNL Cardiovascular: Yes: Regular Rate and Rhythm, S1, S2 Respiratory: Yes: Diminished Gastrointestinal: Yes: Normal Bowel Sounds, Soft Extremities: Yes: WNL Edema: No Labs: CBC, BMP 07/20/18 06:30 07/20/18 06:30 INR, PTT INR 0.97 (0.83-1.09) 07/19/18 12:47 Problem List - Problems (1) Pleural effusion Code(s): J90 - PLEURAL EFFUSION, NOT ELSEWHERE CLASSIFIED (2) Acute on chronic diastolic heart failure Code(s): I50.33 - ACUTE ON CHRONIC DIASTOLIC (CONGESTIVE) HEART FAILURE (3) CAD (coronary artery disease) Code(s): I25.10 - ATHSCL HEART DISEASE OF [place] CORONARY ARTERY W/O ANG PCTRS Qualifiers: Coronary Disease-Associated Artery/Lesion type: [place] artery [place] vs. transplanted heart: [place] heart Associated angina: without angina Qualified Code(s): I25.10 - Atherosclerotic heart disease of [place] coronary artery without angina pectoris (4) ESRD (end stage renal disease) Code(s): N18.6 - END STAGE RENAL DISEASE (5) Fever Code(s): R50.9 - FEVER, UNSPECIFIED Qualifiers: Fever type: unspecified Qualified Code(s): R50.9 - Fever, unspecified (6) HTN (hypertension) Code(s): I10 - ESSENTIAL (PRIMARY) HYPERTENSION (7) Hypertensive cardiomyopathy Code(s): I11.9 - HYPERTENSIVE HEART DISEASE WITHOUT HEART FAILURE; I43 - CARDIOMYOPATHY IN DISEASES CLASSIFIED ELSEWHERE Qualifiers: Heart failure presence: with heart failure Qualified Code(s): I11.0 - Hypertensive heart disease with heart failure; I43 - Cardiomyopathy in diseases classified elsewhere (8) S/P CABG (coronary artery bypass graft) Code(s): Z95.1 - PRESENCE OF AORTOCORONARY BYPASS GRAFT Assessment/Plan IMP ACUTE HYPOXEMIC RESPIRATORY FAILURE ACUTE ON CHRONIC CHF FEVER ? PNEUMONIA LOCULATED R PLEURAL EFFUSION ? PARAPNEUMONIC,?MALIGNANT,? CHF ASHD S/P CABG ESRD ON HD EOSINOPHILIA HYPERTENSIVE URGENCY ANEMIA PLAN O2 HD PER RENAL ABX TITRATE BP MEDS CHECK PLEURAL FLUIDS CHEMISTRIES/CELL CT MONITOR LYTES,CBC,EOSINOPHIL CT DR MELENDREZ
--- NOTE | 2018-07-21 12:12 | PN ---
Progress Note (short form) - Note Progress Note: status post thoracocentesis Comfortable Had discussed with ID yesterday On antibiotics Also discussed with pulmonary today CT scan also reviewed and discussed Vital Signs Temp 98.7 F 07/21/18 10:00 Pulse 76 07/21/18 10:00 Resp 18 07/21/18 10:00 BP 154/76 07/21/18 10:00 Pulse Ox 95 07/20/18 20:55 Intake & Output 07/20/18 07/21/18 07/21/18 23:59 11:59 23:59 Intake Total 650 200 Output Total 1 Balance 650 199 Weight 141 lb Intake: IV 10 Saline Lock 10 Oral 640 200 Output: Urine 1 Void 1 Other: Voiding Method Urinal Urinal # Unmeasured Voids Void 2 1 Weight Measurement Method Standing Scale Active Medications Acetaminophen (Tylenol -) 650 mg PO Q6H PRN PRN Reason: FEVER Last Admin: 07/20/18 02:32 Dose: 650 mg Aspirin (Ecotrin -) 325 mg PO DAILY [facility] Last Admin: 07/20/18 09:18 Dose: 325 mg Atorvastatin Calcium (Lipitor -) 20 mg PO HS [facility] Last Admin: 07/20/18 21:27 Dose: 20 mg Calcium Acetate (Phoslo -) 667 mg PO TIDCM [facility] Last Admin: 07/21/18 07:47 Dose: 667 mg Carvedilol (Coreg -) 25 mg PO BID [facility] Last Admin: 07/20/18 21:29 Dose: 25 mg Clonidine HCl (Catapres Tts Patch -) 0.2 mg TD Tu@2200 [facility] Last Admin: 07/20/18 02:31 Dose: 0.2 mg Docusate Sodium (Colace -) 100 mg PO BID [facility] Last Admin: 07/20/18 21:28 Dose: 100 mg Ergocalciferol (Drisdol -) 50,000 unit PO Olivier@1000 [facility] Folic Acid (Folic Acid -) 1 mg PO DAILY [facility] Last Admin: 07/20/18 09:19 Dose: 1 mg Heparin Sodium (Porcine) (Heparin -) 5,000 unit SQ BID [facility] Last Admin: 07/20/18 21:33 Dose: 5,000 unit Hydralazine HCl (Apresoline -) 25 mg PO TID [facility] Last Admin: 07/21/18 05:53 Dose: 25 mg Sodium Chloride (Normal Saline -) 250 mls @ 3,000 mls/hr IV PRN PRN PRN Reason: Hypotension during Dialysis Stop: 07/20/18 18:59 Piperacillin Sod/Tazobactam (Sod 2.25 gm/ Dextrose) 50 mls @ 100 mls/hr IVPB Q8H-IV [facility]; Protocol Last Admin: 07/21/18 01:40 Dose: 100 mls/hr Nifedipine (Procardia Xl -) 60 mg PO DAILY [facility] Last Admin: 07/20/18 11:10 Dose: 60 mg Pantoprazole Sodium (Protonix -) 40 mg PO DAILY [facility] Last Admin: 07/20/18 09:18 Dose: 40 mg CBC, BMP 07/20/18 06:30 07/20/18 06:30 ct chest - noted echo - noted Physical Examination Constitutional: Yes: No Distress, comfortable Eyes: Yes: Conjunctiva Clear Neck: Yes: Supple, Other (No JVD) Cardiovascular: Yes: Regular Rate and Rhythm Respiratory: Yes: Diminished at bases Gastrointestinal: Yes: Soft Edema: No Neurological: Yes: Alert (poor historian. Nonfocal exam) Assessment/Plan status post thoracocentesis Continue antibiotics Lung mass? Await cytology Continue other medications Will follow Problem List - Problems (1) CAD (coronary artery disease) Code(s): I25.10 - ATHSCL HEART DISEASE OF [place] CORONARY ARTERY W/O ANG PCTRS Qualifiers: Coronary Disease-Associated Artery/Lesion type: [place] artery [place] vs. transplanted heart: [place] heart Associated angina: without angina Qualified Code(s): I25.10 - Atherosclerotic heart disease of [place] coronary artery without angina pectoris (2) Fever Code(s): R50.9 - FEVER, UNSPECIFIED Qualifiers: Fever type: unspecified Qualified Code(s): R50.9 - Fever, unspecified (3) Hypertensive cardiomyopathy Code(s): I11.9 - HYPERTENSIVE HEART DISEASE WITHOUT HEART FAILURE; I43 - CARDIOMYOPATHY IN DISEASES CLASSIFIED ELSEWHERE Qualifiers: Heart failure presence: with heart failure Qualified Code(s): I11.0 - Hypertensive heart disease with heart failure; I43 - Cardiomyopathy in diseases classified elsewhere (4) Hypoxia Code(s): R09.02 - HYPOXEMIA
--- NOTE | 2018-07-21 13:20 | PN ---
Progress Note, Physician History of Present Illness: stable remaining afebrile no complaints awaiting for all cx reports - Current Medication List Current Medications: Active Medications Acetaminophen (Tylenol -) 650 mg PO Q6H PRN PRN Reason: FEVER Last Admin: 07/20/18 02:32 Dose: 650 mg Aspirin (Ecotrin -) 325 mg PO DAILY [facility] Last Admin: 07/20/18 09:18 Dose: 325 mg Atorvastatin Calcium (Lipitor -) 20 mg PO HS [facility] Last Admin: 07/20/18 21:27 Dose: 20 mg Calcium Acetate (Phoslo -) 667 mg PO TIDCM [facility] Last Admin: 07/21/18 07:47 Dose: 667 mg Carvedilol (Coreg -) 25 mg PO BID [facility] Last Admin: 07/20/18 21:29 Dose: 25 mg Clonidine HCl (Catapres Tts Patch -) 0.2 mg TD Tu@2200 [facility] Last Admin: 07/20/18 02:31 Dose: 0.2 mg Docusate Sodium (Colace -) 100 mg PO BID [facility] Last Admin: 07/20/18 21:28 Dose: 100 mg Ergocalciferol (Drisdol -) 50,000 unit PO Olivier@1000 [facility] Folic Acid (Folic Acid -) 1 mg PO DAILY [facility] Last Admin: 07/20/18 09:19 Dose: 1 mg Heparin Sodium (Porcine) (Heparin -) 5,000 unit SQ BID [facility] Last Admin: 07/20/18 21:33 Dose: 5,000 unit Hydralazine HCl (Apresoline -) 25 mg PO TID [facility] Last Admin: 07/21/18 05:53 Dose: 25 mg Sodium Chloride (Normal Saline -) 250 mls @ 3,000 mls/hr IV PRN PRN PRN Reason: Hypotension during Dialysis Stop: 07/20/18 18:59 Piperacillin Sod/Tazobactam (Sod 2.25 gm/ Dextrose) 50 mls @ 100 mls/hr IVPB Q8H-IV [facility]; Protocol Last Admin: 07/21/18 01:40 Dose: 100 mls/hr Nifedipine (Procardia Xl -) 60 mg PO DAILY [facility] Last Admin: 07/20/18 11:10 Dose: 60 mg Pantoprazole Sodium (Protonix -) 40 mg PO DAILY [facility] Last Admin: 07/20/18 09:18 Dose: 40 mg - Objective Vital Signs: Vital Signs Temperature 98.7 F 07/21/18 10:00 Pulse Rate 76 07/21/18 10:00 Respiratory Rate 18 07/21/18 10:00 Blood Pressure 154/76 07/21/18 10:00 O2 Sat by Pulse Oximetry (%) 95 07/20/18 20:55 Constitutional: Yes: No Distress, Calm Cardiovascular: Yes: S1, S2 Respiratory: Yes: Regular, Poor Air Entry (bases) Gastrointestinal: Yes: Normal Bowel Sounds, Soft Musculoskeletal: Yes: WNL Extremities: Yes: Other Neurological: Yes: Alert Psychiatric: Yes: Alert Labs: CBC, BMP 07/20/18 06:30 07/20/18 06:30 INR, PTT INR 0.97 (0.83-1.09) 07/19/18 12:47 Assessment/Plan looking at the p[atient symptoms i am worried if he has parapneumonic infection and the way he became sob and spiked a fever does he acute pneumonia due to strep also his eosinophils have been increasing and they are high and if the eosinphils do not trend down then we can look it from simple point of view that does this patient have any parasitic infection and then work him up Problem List - Problems (1) CAD (coronary artery disease) Code(s): I25.10 - ATHSCL HEART DISEASE OF [place] CORONARY ARTERY W/O ANG PCTRS Qualifiers: Coronary Disease-Associated Artery/Lesion type: [place] artery [place] vs. transplanted heart: [place] heart Associated angina: without angina Qualified Code(s): I25.10 - Atherosclerotic heart disease of [place] coronary artery without angina pectoris (2) Fever Code(s): R50.9 - FEVER, UNSPECIFIED Qualifiers: Fever type: unspecified Qualified Code(s): R50.9 - Fever, unspecified (3) Hypertensive cardiomyopathy Code(s): I11.9 - HYPERTENSIVE HEART DISEASE WITHOUT HEART FAILURE; I43 - CARDIOMYOPATHY IN DISEASES CLASSIFIED ELSEWHERE Qualifiers: Heart failure presence: with heart failure Qualified Code(s): I11.0 - Hypertensive heart disease with heart failure; I43 - Cardiomyopathy in diseases classified elsewhere (4) Hypoxia Code(s): R09.02 - HYPOXEMIA 5 pleural effusion 5 eosinophilia plan await for all cx report continue current mgmt dialysis rest as per the team
--- NOTE | 2018-07-21 13:21 | CONS ---
DATE OF CONSULTATION: 07/20/2018 REFERRING PHYSICIAN: Maddie Davenport MD HISTORY: The history is obtained from records. The patient is a poor historian. The patient is a 63-year-old male with a past medical history significant for end-stage renal disease on hemodialysis 3 times weekly, hypertension, ASHD status post CABG, diabetes mellitus, resident of [facility] transferred to [facility] on May 19 secondary to increasing fever of 101. The patient apparently denied any complaints of chest pain or shortness of breath prior to admission. The patient was brought to the ER. In the ER, he was noted to be hypoxemic for which he was placed on supplemental O2. The patient underwent hemodialysis last night. He also was noted to have significantly elevated blood pressure markedly hypertensive with a blood pressure of 205/104. No further history is available at this time. PAST MEDICAL HISTORY: Again, it includes end-stage renal disease on hemodialysis, hypertension, ASHD status post CABG, diabetes, hypertension. CURRENT MEDICATIONS: Include Tylenol, heparin, Coreg, Colace, Catapres, Procardia, Apresoline, Ecotrin, PhosLo, Protonix, folic acid, and Drisdol. REVIEW OF SYSTEMS: Unable to obtain. PHYSICAL EXAMINATION: General: The patient is a well-developed male awake and alert. Appears comfortable in no acute distress. Vital Signs: He is currently afebrile. Blood pressure 186/85, respiratory rate is 22, O2 saturation is 95% on 3 L. HEENT: Normocephalic and atraumatic. Neck: Supple. Heart: Regular S1, S2. Chest: Diminished breath sounds on the right base. Abdomen: Soft. Bowel sounds are positive. Extremities: No cyanosis or edema. LABORATORIES: BUN 25, creatinine 4, hemoglobin A1C 7.1. BNP is 73,488. INR 0.97. WBC 3.1, hemoglobin 10.3, hematocrit 30.5 with a platelet count of 146,000. There are 36 polys, 44 neutrophils, 13 lymphocytes, and 25 eosinophils. Chest x-ray reveals a moderate sized right pleural effusion, partially loculated, and pulmonary vascular congestion bilaterally. Of note is CT scan of the chest was performed on June 28, 2018 as an outpatient, which revealed [id number] right pleural effusion loculated with infiltrates within the lateral segment to right middle lobe and right lung base. IMPRESSION: 1. Acute hypoxemic respiratory failure most likely secondary to multiple factors. A. Fluid overload. B. Rule out pneumonia. 2. Loculated right pleural effusion, rule out possible complicated parapneumonic effusion. 3. Acute on chronic diastolic heart failure. 4. End-stage renal disease on hemodialysis. 5. Hypertensive urgency. 6. Eosinophilia. 7. Arteriosclerotic heart disease status post coronary artery bypass graft. PLAN: Supplemental O2. Inhaled bronchodilators. Hemodialysis as per Renal. Interventional Radiology thoracentesis with ultrasound guidance. Antibiotic therapy. Monitor eosinophilia. Consider heme evaluation. Titrate blood pressure medications. RAUL MELENDREZ M.D. [id number]
[2018-07-21 13:27] LABS: GLUCOSE,PLEURAL FLUID 107.04; TOTAL PROTEIN,PLEURAL FLUID 2.784
[2018-07-21] MEDS: DOCUSATE SODIUM 100 MG CAPSULE (FP) PO SCH ×2 (13:34→21:15)
[2018-07-21] MEDS: CARVEDILOL 25 MG TABLET (FP) PO SCH ×2 (13:34→21:11)
[2018-07-21] MEDS: FOLIC ACID 1 MG TABLET (FP) PO SCH (13:34)
[2018-07-21] MEDS: ASPIRIN 325 MG ENTERIC COATED TABLET (FP) PO SCH (13:34)
[2018-07-21] MEDS: NIFEdipine E.R 60 MG TABLET (UD) PO SCH (13:35)
[2018-07-21] MEDS: HEPARIN NA (PORCINE) 5,000 UNITS/ML 1ML VIAL SQ SCH ×2 (13:35→21:11)
[2018-07-21] MEDS: PANTOPRAZOLE 40 MG TABLET (FP) PO SCH (13:36)
[2018-07-21 14:09] LABS: PLEURAL FLUID COLOR YELLOW
[2018-07-21 14:10] LABS: PLEURAL FLUID APPEARANCE CLOUDY; PLEURAL FLUID RBC 10095 /mm3
[2018-07-21 14:30] LABS: PLEURAL FLD EOSINOPHIL 5 %; PLEURAL FLUID LYMPHOCYTES 64 %; PLEURAL FLUID MONOCYTE 11 %; PLEURAL FLUID NEUTROPHIL 5 %
[2018-07-21 14:31] LABS: PLEURAL FLUID MACROPHAGES 15 %
--- NOTE | 2018-07-21 15:12 | PN ---
Progress Note, Physician History of Present Illness: Pt seen and examined at bedside. He is awake and appears comfortable. - Current Medication List Current Medications: Active Medications Acetaminophen (Tylenol -) 650 mg PO Q6H PRN PRN Reason: FEVER Last Admin: 07/20/18 02:32 Dose: 650 mg Aspirin (Ecotrin -) 325 mg PO DAILY [facility] Last Admin: 07/21/18 13:34 Dose: 325 mg Atorvastatin Calcium (Lipitor -) 20 mg PO HS [facility] Last Admin: 07/20/18 21:27 Dose: 20 mg Calcium Acetate (Phoslo -) 667 mg PO TIDCM [facility] Last Admin: 07/21/18 13:34 Dose: 667 mg Carvedilol (Coreg -) 25 mg PO BID [facility] Last Admin: 07/21/18 13:34 Dose: 25 mg Clonidine HCl (Catapres Tts Patch -) 0.2 mg TD Tu@2200 [facility] Last Admin: 07/20/18 02:31 Dose: 0.2 mg Docusate Sodium (Colace -) 100 mg PO BID [facility] Last Admin: 07/21/18 13:34 Dose: 100 mg Ergocalciferol (Drisdol -) 50,000 unit PO Olivier@1000 [facility] Folic Acid (Folic Acid -) 1 mg PO DAILY [facility] Last Admin: 07/21/18 13:34 Dose: 1 mg Heparin Sodium (Porcine) (Heparin -) 5,000 unit SQ BID [facility] Last Admin: 07/21/18 13:35 Dose: Not Given Hydralazine HCl (Apresoline -) 25 mg PO TID [facility] Last Admin: 07/21/18 14:15 Dose: Not Given Sodium Chloride (Normal Saline -) 250 mls @ 3,000 mls/hr IV PRN PRN PRN Reason: Hypotension during Dialysis Stop: 07/20/18 18:59 Piperacillin Sod/Tazobactam (Sod 2.25 gm/ Dextrose) 50 mls @ 100 mls/hr IVPB Q8H-IV [facility]; Protocol Last Admin: 07/21/18 13:36 Dose: 100 mls/hr Nifedipine (Procardia Xl -) 60 mg PO DAILY [facility] Last Admin: 07/21/18 13:35 Dose: 60 mg Pantoprazole Sodium (Protonix -) 40 mg PO DAILY [facility] Last Admin: 07/21/18 13:36 Dose: 40 mg - Objective Vital Signs: Vital Signs Temperature 98.7 F 07/21/18 10:00 Pulse Rate 76 07/21/18 10:00 Respiratory Rate 18 07/21/18 10:00 Blood Pressure 154/76 07/21/18 10:00 O2 Sat by Pulse Oximetry (%) 95 07/20/18 20:55 Constitutional: Yes: Calm Eyes: Yes: Conjunctiva Clear HENT: Yes: Atraumatic Cardiovascular: Yes: S1, S2 Respiratory: Yes: On Nasal O2 Gastrointestinal: Yes: Soft Genitourinary: Yes: Incontinence Musculoskeletal: Yes: Muscle Weakness Edema: No Neurological: Yes: Oriented Psychiatric: Yes: Oriented Labs: CBC, BMP 07/20/18 06:30 07/20/18 06:30 INR, PTT INR 0.97 (0.83-1.09) 07/19/18 12:47 - ....Imaging Chest X-ray: Report Reviewed Problem List - Problems (1) ESRD (end stage renal disease) Code(s): N18.6 - END STAGE RENAL DISEASE (2) HTN (hypertension) Code(s): I10 - ESSENTIAL (PRIMARY) HYPERTENSION (3) CAD (coronary artery disease) Code(s): I25.10 - ATHSCL HEART DISEASE OF [place] CORONARY ARTERY W/O ANG PCTRS Qualifiers: Coronary Disease-Associated Artery/Lesion type: [place] artery [place] vs. transplanted heart: [place] heart Associated angina: without angina Qualified Code(s): I25.10 - Atherosclerotic heart disease of [place] coronary artery without angina pectoris (4) Hyponatremia Code(s): E87.1 - HYPO-OSMOLALITY AND HYPONATREMIA (5) Fever Code(s): R50.9 - FEVER, UNSPECIFIED Qualifiers: Fever type: unspecified Qualified Code(s): R50.9 - Fever, unspecified (6) Hypoxia Code(s): R09.02 - HYPOXEMIA Assessment/Plan Current Medications Generic Name Dose Route Start Last Admin Trade Name Freq PRN Reason Stop Dose Admin Acetaminophen 650 mg 07/19/18 20:47 07/20/18 02:32 Tylenol - PO 650 mg Q6H PRN Administration FEVER Aspirin 325 mg 07/20/18 10:00 07/21/18 13:34 Ecotrin - PO 325 mg DAILY [facility] Administration Atorvastatin Calcium 20 mg 07/19/18 22:00 07/20/18 21:27 Lipitor - PO 20 mg HS [facility] Administration Calcium Acetate 667 mg 07/20/18 08:00 07/21/18 13:34 Phoslo - PO 667 mg TIDCM [facility] Administration Carvedilol 25 mg 07/20/18 22:00 07/21/18 13:34 Coreg - PO 25 mg BID [facility] Administration Clonidine HCl 0.2 mg 07/19/18 22:00 07/20/18 02:31 Catapres Tts Patch - TD 0.2 mg Tu@2200 [facility] Administration Docusate Sodium 100 mg 07/19/18 22:00 07/21/18 13:34 Colace - PO 100 mg BID [facility] Administration Ergocalciferol 50,000 unit 07/24/18 10:00 Drisdol - PO Olivier@1000 [facility] Folic Acid 1 mg 07/20/18 10:00 07/21/18 13:34 Folic Acid - PO 1 mg DAILY [facility] Administration Heparin Sodium (Porcine) 5,000 unit 07/19/18 22:00 07/21/18 13:35 Heparin - SQ Not Given BID [facility] Hydralazine HCl 25 mg 07/19/18 22:00 07/21/18 14:15 Apresoline - PO Not Given TID [facility] Sodium Chloride 250 mls @ 3,000 mls/hr 07/19/18 18:59 Normal Saline - IV 07/20/18 18:59 PRN PRN Hypotension during Dialysis Piperacillin Sod/Tazobactam 50 mls @ 100 mls/hr 07/20/18 15:30 07/21/18 13:36 Sod 2.25 gm/ Dextrose IVPB 100 mls/hr Q8H-IV [facility] Administration Protocol Nifedipine 60 mg 07/20/18 10:15 07/21/18 13:35 Procardia Xl - PO 60 mg DAILY [facility] Administration Pantoprazole Sodium 40 mg 07/20/18 10:00 07/21/18 13:36 Protonix - PO 40 mg DAILY [facility] Administration Impression 1. ESRD 2. hyponatremia 3. PNA 4. sepsis 5. pleural effusion 6. CAD 7. hx CABG 8. DM 9. HLD 10. anemia 11. hypoxia Plan - will arrange for HD tomorrow (unable to dialyze today secondary to scheduling) - bp is better controlled - follow cultuers - monitor hg - will follow pt Dr Siu
[2018-07-21] MEDS: ATORVASTATIN CA 20 MG TABLET (FP) PO SCH (21:11)
[2018-07-22 00:07] LABS: HBSAG SCREEN Negative (Negative); HEP A AB, IGM Negative (Negative); HEP B CORE AB, TOT Negative (Negative)
[2018-07-22] MEDS ORDERED: PIPERACILLIN/TAZOBACTAM 2.25 GM VIAL IVPB ONE ×3 (00:19→16:37)
[2018-07-22] MEDS ORDERED: DEXTROSE 5%-WATER 100 ML IVPB ONE ×3 (00:19→16:37)
[2018-07-22] MEDS: PIPERACILLIN/TAZOB 2.25 GM 2.25 GM in DEXTROSE 5%-WATER 100 ML IVPB SCH ×3 (01:12→17:19)
[2018-07-22] MEDS: hydrALAZINE HCL 25 MG TABLET (FP) PO SCH ×3 (05:44→21:06)
[2018-07-22 07:38] LABS: BASO % 1.1 % (0-2.0); EOS % 28.1 % (0-4.5); HEMATOCRIT 31.8 % (35.4-49); HEMOGLOBIN 10.4 GM/dL (11.7-16.9); LYMPH % 18.6 % (8-40); MCH 27.9 pg (25.7-33.7); MCHC 32.7 g/dl (32.0-35.9); MEAN CELL VOLUME 85.1 fl (80-96); MEAN PLT VOLUME 8.3 fl (7.5-11.1); MONO % 10.3 % (3.8-10.2); NEUT % 41.9 % (42.8-82.8); PLATELET COUNT 169 K/MM3 (134-434); RBC 3.73 M/mm3 (4.00-5.60); RDW 16.5 % (11.9-15.9); WHITE BLOOD COUNT 4.6 K/mm3 (4.0-10.0)
[2018-07-22] MEDS: CALCIUM ACETATE 667 MG CAPSULE (FP) PO SCH ×3 (08:25→17:19)
--- NOTE | 2018-07-22 09:33 | PN ---
Progress Note, Physician History of Present Illness: Afebrile, dyspnea and BP control improved, post right thoracentesis, fluid studies pending. - Current Medication List Current Medications: Active Medications Acetaminophen (Tylenol -) 650 mg PO Q6H PRN PRN Reason: FEVER Last Admin: 07/20/18 02:32 Dose: 650 mg Aspirin (Ecotrin -) 325 mg PO DAILY [facility] Last Admin: 07/21/18 13:34 Dose: 325 mg Atorvastatin Calcium (Lipitor -) 20 mg PO HS [facility] Last Admin: 07/21/18 21:11 Dose: 20 mg Calcium Acetate (Phoslo -) 667 mg PO TIDCM [facility] Last Admin: 07/22/18 08:25 Dose: 667 mg Carvedilol (Coreg -) 25 mg PO BID [facility] Last Admin: 07/21/18 21:11 Dose: 25 mg Clonidine HCl (Catapres Tts Patch -) 0.2 mg TD Tu@2200 [facility] Last Admin: 07/20/18 02:31 Dose: 0.2 mg Docusate Sodium (Colace -) 100 mg PO BID [facility] Last Admin: 07/21/18 21:15 Dose: Not Given Epoetin Reed (Epogen -) 3,000 unit IVPUSH ONCE ONE Stop: 07/22/18 15:13 Ergocalciferol (Drisdol -) 50,000 unit PO Olivier@1000 [facility] Folic Acid (Folic Acid -) 1 mg PO DAILY [facility] Last Admin: 07/21/18 13:34 Dose: 1 mg Heparin Sodium (Porcine) (Heparin -) 5,000 unit SQ BID [facility] Last Admin: 07/21/18 21:11 Dose: 5,000 unit Hydralazine HCl (Apresoline -) 25 mg PO TID [facility] Last Admin: 07/22/18 05:44 Dose: 25 mg Sodium Chloride (Normal Saline -) 250 mls @ 3,000 mls/hr IV PRN PRN PRN Reason: Hypotension during Dialysis Stop: 07/22/18 15:12 Piperacillin Sod/Tazobactam (Sod 2.25 gm/ Dextrose) 100 mls @ 100 mls/hr IVPB Q8H-IV [facility]; Protocol Last Admin: 07/22/18 01:12 Dose: 100 mls/hr Nifedipine (Procardia Xl -) 60 mg PO DAILY [facility] Last Admin: 07/21/18 13:35 Dose: 60 mg Pantoprazole Sodium (Protonix -) 40 mg PO DAILY [facility] Last Admin: 07/21/18 13:36 Dose: 40 mg - Objective Vital Signs: Vital Signs Temperature 98.7 F 07/22/18 09:13 Pulse Rate 78 07/22/18 09:13 Respiratory Rate 18 07/22/18 09:13 Blood Pressure 158/80 07/22/18 09:13 O2 Sat by Pulse Oximetry (%) 95 07/21/18 20:56 Constitutional: Yes: No Distress, Calm Neck: Yes: Supple Cardiovascular: Yes: Regular Rate and Rhythm Respiratory: Yes: Regular, Diminished Gastrointestinal: Yes: Normal Bowel Sounds, Soft Edema: No Labs: CBC, BMP 07/22/18 06:28 07/20/18 06:30 INR, PTT INR 0.97 (0.83-1.09) 07/19/18 12:47 - ....Imaging Chest X-ray: Report Reviewed (Decreased right effusion w/o PTX) EKG: Report Reviewed (Tele: NSR) Problem List - Problems (1) CAD (coronary artery disease) Code(s): I25.10 - ATHSCL HEART DISEASE OF [place] CORONARY ARTERY W/O ANG PCTRS Qualifiers: Coronary Disease-Associated Artery/Lesion type: [place] artery [place] vs. transplanted heart: [place] heart Associated angina: without angina Qualified Code(s): I25.10 - Atherosclerotic heart disease of [place] coronary artery without angina pectoris (2) ESRD (end stage renal disease) Code(s): N18.6 - END STAGE RENAL DISEASE (3) Fever Code(s): R50.9 - FEVER, UNSPECIFIED Qualifiers: Fever type: unspecified Qualified Code(s): R50.9 - Fever, unspecified (4) Hypoxia Code(s): R09.02 - HYPOXEMIA (5) S/P CABG (coronary artery bypass graft) Code(s): Z95.1 - PRESENCE OF AORTOCORONARY BYPASS GRAFT (6) Hypertensive cardiomyopathy Code(s): I11.9 - HYPERTENSIVE HEART DISEASE WITHOUT HEART FAILURE; I43 - CARDIOMYOPATHY IN DISEASES CLASSIFIED ELSEWHERE Qualifiers: Heart failure presence: with heart failure Qualified Code(s): I11.0 - Hypertensive heart disease with heart failure; I43 - Cardiomyopathy in diseases classified elsewhere (7) Acute on chronic diastolic heart failure Code(s): I50.33 - ACUTE ON CHRONIC DIASTOLIC (CONGESTIVE) HEART FAILURE (8) Pleural effusion due to CHF (congestive heart failure) Code(s): I50.9 - HEART FAILURE, UNSPECIFIED Assessment/Plan 07/20/2018 Echo: Mod BRITTANY, normal LV size and fxn, mod-severe MR, TR, mod MAC 07/20/[address]: Large right>small left effusion, RML mass vs consolidation 1. Acute hypoxic respiratory failure referable to 2. Acute on chronic diastolic failure with pleural effusions R>L post thoracentesis 3. ESRD on HD TTS 4. CAD s/p CABG, angina pectoris 5. HTN urgency improved 6. Fever, r/o sepsis 7. Type 2 DM 8. Hyperlipidemia 9. Anemia of CKD 10. Hyponatremia resolved 11. RML PNA, loculated effusion vs mass P:1. Volume removal via HD, wean FIO2 as tolerated 2. On empiric abx with f/u C&S, f/u fluid studies, repeat chest CT several months 3. Continue Procardia XL 60 qd, ASA 325 qd, Lipitor 20 qhs, carvedilol 25 bid, catapres patch, hydralazine 25 tid with uptitration as tolerated, consider ARB if hyperkalemia not an issue 4. DVT and GI prophylaxis, d/c telemetry
--- NOTE | 2018-07-22 10:06 | PN ---
Progress Note (short form) - Note Progress Note: pt seen/ examined chart reviewed feels ok all f/u noted. Vital Signs Temp 98.7 F 07/22/18 09:13 Pulse 78 07/22/18 09:13 Resp 18 07/22/18 09:13 BP 158/80 07/22/18 09:13 Pulse Ox 95 07/21/18 20:56 Intake & Output 07/21/18 07/21/18 07/22/18 11:59 23:59 11:59 Intake Total 200 510 Balance 200 510 Weight 141 lb 141 lb 139 lb Intake: Oral 200 510 Other: Voiding Method Urinal Urinal # Unmeasured Voids Void 1 0 Height 5 ft 6 in Body Mass Index (BMI) 22.7 Weight Measurement Method Standing Scale Standing Scale Active Medications Acetaminophen (Tylenol -) 650 mg PO Q6H PRN PRN Reason: FEVER Last Admin: 07/20/18 02:32 Dose: 650 mg Aspirin (Ecotrin -) 325 mg PO DAILY [facility] Last Admin: 07/21/18 13:34 Dose: 325 mg Atorvastatin Calcium (Lipitor -) 20 mg PO HS [facility] Last Admin: 07/21/18 21:11 Dose: 20 mg Calcium Acetate (Phoslo -) 667 mg PO TIDCM [facility] Last Admin: 07/22/18 08:25 Dose: 667 mg Carvedilol (Coreg -) 25 mg PO BID [facility] Last Admin: 07/21/18 21:11 Dose: 25 mg Clonidine HCl (Catapres Tts Patch -) 0.2 mg TD Tu@2200 [facility] Last Admin: 07/20/18 02:31 Dose: 0.2 mg Docusate Sodium (Colace -) 100 mg PO BID [facility] Last Admin: 07/21/18 21:15 Dose: Not Given Epoetin Reed (Epogen -) 3,000 unit IVPUSH ONCE ONE Stop: 07/22/18 15:13 Ergocalciferol (Drisdol -) 50,000 unit PO Olivier@1000 [facility] Folic Acid (Folic Acid -) 1 mg PO DAILY [facility] Last Admin: 07/21/18 13:34 Dose: 1 mg Heparin Sodium (Porcine) (Heparin -) 5,000 unit SQ BID [facility] Last Admin: 07/21/18 21:11 Dose: 5,000 unit Hydralazine HCl (Apresoline -) 25 mg PO TID [facility] Last Admin: 07/22/18 05:44 Dose: 25 mg Sodium Chloride (Normal Saline -) 250 mls @ 3,000 mls/hr IV PRN PRN PRN Reason: Hypotension during Dialysis Stop: 07/22/18 15:12 Piperacillin Sod/Tazobactam (Sod 2.25 gm/ Dextrose) 100 mls @ 100 mls/hr IVPB Q8H-IV [facility]; Protocol Last Admin: 07/22/18 01:12 Dose: 100 mls/hr Nifedipine (Procardia Xl -) 60 mg PO DAILY [facility] Last Admin: 07/21/18 13:35 Dose: 60 mg Pantoprazole Sodium (Protonix -) 40 mg PO DAILY [facility] Last Admin: 07/21/18 13:36 Dose: 40 mg CBC, BMP 07/22/18 06:28 07/20/18 06:30 cxr - decreased pleural effusion Physical Examination Constitutional: Yes: No Distress, comfortable. Eyes: Yes: Conjunctiva Clear Neck: Yes: Supple, Other (No JVD) Cardiovascular: Yes: Regular Rate and Rhythm Respiratory: Yes: Diminished at bases Gastrointestinal: Yes: Soft Edema: No Neurological: Yes: Alert (poor historian. Non focal exam) Assessment/Plan status post thoracocentesis stable Continue antibiotics Await cytology Continue other medications Will follow Discussed with I/D Problem List - Problems (1) CAD (coronary artery disease) Code(s): I25.10 - ATHSCL HEART DISEASE OF [place] CORONARY ARTERY W/O ANG PCTRS Qualifiers: Coronary Disease-Associated Artery/Lesion type: [place] artery [place] vs. transplanted heart: [place] heart Associated angina: without angina Qualified Code(s): I25.10 - Atherosclerotic heart disease of [place] coronary artery without angina pectoris (2) Fever Code(s): R50.9 - FEVER, UNSPECIFIED Qualifiers: Fever type: unspecified Qualified Code(s): R50.9 - Fever, unspecified (3) Hypertensive cardiomyopathy Code(s): I11.9 - HYPERTENSIVE HEART DISEASE WITHOUT HEART FAILURE; I43 - CARDIOMYOPATHY IN DISEASES CLASSIFIED ELSEWHERE Qualifiers: Heart failure presence: with heart failure Qualified Code(s): I11.0 - Hypertensive heart disease with heart failure; I43 - Cardiomyopathy in diseases classified elsewhere (4) Hypoxia Code(s): R09.02 - HYPOXEMIA
[2018-07-22] MEDS ORDERED: SODIUM CHLORIDE 250 ML IV PRN (10:32)
[2018-07-22] MEDS ORDERED: EPOETIN ALFA 3,000 UNIT/1 ML ML IVPUSH ONE (10:45)
--- NOTE | 2018-07-22 10:53 | PATH ---
Cytology Non-Gynecological Report Patient Name: GRAHAM LINDER [facility]. Rec. #: [id number] /Age/Gender: 1955 (Age: 63) / M Account: [id number] Location: 4 W TELEMETRY U Taken: 07/21/2018 Received: 07/21/2018 Reported: 07/22/2018 Physicians: Cayla Fish M.D. Specimen(s) Received RIGHT PLEURAL FLUID Clinical History None given Final Diagnosis PLEURAL FLUID, RIGHT, THORACENTESIS: SATISFACTORY FOR EVALUATION BENIGN (NO MALIGNANT CELLS IDENTIFIED) ABUNDANT BLOOD, ALONG WITH SCATTERED MESOTHELIAL CELLS AND WHITE BLOOD CELLS PRESENT. Comment: Recommend correlation with clinical findings and follow up as clinically indicated. Electronically Signed Canelo Waller M.D. Gross Description A. Approximately 50cc of bloody fluid received fixed in 50% alcohol. Two cytofunnels and one cellblock prepared. B. Approximately 2000cc of bloody fluid received fresh. Two cytofunnels and one cellblock prepared.
[2018-07-22 11:01] LABS: ANISOCYTOSIS 1+; MACROCYTOSIS 0; PLATELET ESTIMATE NORMAL
--- NOTE | 2018-07-22 11:43 | PN ---
Progress Note, Physician Chief Complaint: pulmonary alert,no distress,pleural fluid c/w transudate - Current Medication List Current Medications: Active Medications Acetaminophen (Tylenol -) 650 mg PO Q6H PRN PRN Reason: FEVER Last Admin: 07/20/18 02:32 Dose: 650 mg Aspirin (Ecotrin -) 325 mg PO DAILY [facility] Last Admin: 07/21/18 13:34 Dose: 325 mg Atorvastatin Calcium (Lipitor -) 20 mg PO HS [facility] Last Admin: 07/21/18 21:11 Dose: 20 mg Calcium Acetate (Phoslo -) 667 mg PO TIDCM [facility] Last Admin: 07/22/18 08:25 Dose: 667 mg Carvedilol (Coreg -) 25 mg PO BID [facility] Last Admin: 07/21/18 21:11 Dose: 25 mg Clonidine HCl (Catapres Tts Patch -) 0.2 mg TD Tu@2200 [facility] Last Admin: 07/20/18 02:31 Dose: 0.2 mg Docusate Sodium (Colace -) 100 mg PO BID [facility] Last Admin: 07/21/18 21:15 Dose: Not Given Ergocalciferol (Drisdol -) 50,000 unit PO Olivier@1000 [facility] Folic Acid (Folic Acid -) 1 mg PO DAILY [facility] Last Admin: 07/21/18 13:34 Dose: 1 mg Heparin Sodium (Porcine) (Heparin -) 5,000 unit SQ BID [facility] Last Admin: 07/21/18 21:11 Dose: 5,000 unit Hydralazine HCl (Apresoline -) 25 mg PO TID [facility] Last Admin: 07/22/18 05:44 Dose: 25 mg Piperacillin Sod/Tazobactam (Sod 2.25 gm/ Dextrose) 100 mls @ 100 mls/hr IVPB Q8H-IV [facility]; Protocol Last Admin: 07/22/18 10:39 Dose: 100 mls/hr Nifedipine (Procardia Xl -) 60 mg PO DAILY [facility] Last Admin: 07/21/18 13:35 Dose: 60 mg Pantoprazole Sodium (Protonix -) 40 mg PO DAILY [facility] Last Admin: 07/21/18 13:36 Dose: 40 mg - Objective Vital Signs: Vital Signs Temperature 98.7 F 07/22/18 09:13 Pulse Rate 78 07/22/18 09:13 Respiratory Rate 18 07/22/18 09:13 Blood Pressure 158/80 07/22/18 09:13 O2 Sat by Pulse Oximetry (%) 95 07/21/18 20:56 Constitutional: Yes: Well Nourished, Calm Eyes: Yes: WNL HENT: Yes: WNL Neck: Yes: WNL Cardiovascular: Yes: Regular Rate and Rhythm, S1, S2 Respiratory: Yes: Diminished Gastrointestinal: Yes: Normal Bowel Sounds, Soft Extremities: Yes: WNL Edema: No Labs: CBC, BMP 07/22/18 06:28 Problem List - Problems (1) Pleural effusion Code(s): J90 - PLEURAL EFFUSION, NOT ELSEWHERE CLASSIFIED (2) Acute on chronic diastolic heart failure Code(s): I50.33 - ACUTE ON CHRONIC DIASTOLIC (CONGESTIVE) HEART FAILURE (3) CAD (coronary artery disease) Code(s): I25.10 - ATHSCL HEART DISEASE OF [place] CORONARY ARTERY W/O ANG PCTRS Qualifiers: Coronary Disease-Associated Artery/Lesion type: [place] artery [place] vs. transplanted heart: [place] heart Associated angina: without angina Qualified Code(s): I25.10 - Atherosclerotic heart disease of [place] coronary artery without angina pectoris (4) ESRD (end stage renal disease) Code(s): N18.6 - END STAGE RENAL DISEASE (5) Fever Code(s): R50.9 - FEVER, UNSPECIFIED Qualifiers: Fever type: unspecified Qualified Code(s): R50.9 - Fever, unspecified (6) HTN (hypertension) Code(s): I10 - ESSENTIAL (PRIMARY) HYPERTENSION (7) Hypertensive cardiomyopathy Code(s): I11.9 - HYPERTENSIVE HEART DISEASE WITHOUT HEART FAILURE; I43 - CARDIOMYOPATHY IN DISEASES CLASSIFIED ELSEWHERE Qualifiers: Heart failure presence: with heart failure Qualified Code(s): I11.0 - Hypertensive heart disease with heart failure; I43 - Cardiomyopathy in diseases classified elsewhere (8) S/P CABG (coronary artery bypass graft) Code(s): Z95.1 - PRESENCE OF AORTOCORONARY BYPASS GRAFT Assessment/Plan IMP ACUTE HYPOXEMIC RESPIRATORY FAILURE IMPROVING ACUTE ON CHRONIC CHF FEVER ? PNEUMONIA LOCULATED R PLEURAL EFFUSION TRANSUDATE ASHD S/P CABG ESRD ON HD EOSINOPHILIA HYPERTENSIVE URGENCY ANEMIA PLAN O2 HD PER RENAL ABX TITRATE BP MEDS CHECK PLEURAL FLUIDS CHEMISTRIES/CELL CT MONITOR LYTES,CBC,EOSINOPHIL CT CONSIDER HEME EVALUATION DR MELENDREZ
[2018-07-22 11:56] LABS: HEMATOCRIT 29.8 % (35.4-49); HEMOGLOBIN 9.9 GM/dL (11.7-16.9); MCH 28.2 pg (25.7-33.7); MCHC 33.2 g/dl (32.0-35.9); MEAN CELL VOLUME 85.2 fl (80-96); MEAN PLT VOLUME 8.5 fl (7.5-11.1); PLATELET COUNT 171 K/MM3 (134-434); RBC 3.49 M/mm3 (4.00-5.60); RDW 16.5 % (11.9-15.9); WHITE BLOOD COUNT 5.1 K/mm3 (4.0-10.0)
[2018-07-22 12:11] LABS: ANION GAP 9 MMOL/L (8-16); BLOOD UREA NITROGEN 62 mg/dL (7-18); CALCIUM 8.3 mg/dL (8.5-10.1); CHLORIDE 98 mmol/L (98-107); CO2 30 mmol/L (21-32); GLUCOSE,RANDOM 156 mg/dL (74-106); POTASSIUM 4.5 mmol/L (3.5-5.1); SODIUM 137 mmol/L (136-145)
[2018-07-22 12:14] LABS: CREATININE 7.6 mg/dL (0.7-1.3)
[2018-07-22] MEDS: CARVEDILOL 25 MG TABLET (FP) PO SCH ×2 (12:38→21:06)
[2018-07-22] MEDS: NIFEdipine E.R 60 MG TABLET (UD) PO SCH (12:38)
--- NOTE | 2018-07-22 13:39 | PN ---
Progress Note, Physician History of Present Illness: Pt seen and examined at bedside. He is getting HD. He denies shortness of breath. - Current Medication List Current Medications: Active Medications Acetaminophen (Tylenol -) 650 mg PO Q6H PRN PRN Reason: FEVER Last Admin: 07/20/18 02:32 Dose: 650 mg Aspirin (Ecotrin -) 325 mg PO DAILY [facility] Last Admin: 07/21/18 13:34 Dose: 325 mg Atorvastatin Calcium (Lipitor -) 20 mg PO HS [facility] Last Admin: 07/21/18 21:11 Dose: 20 mg Calcium Acetate (Phoslo -) 667 mg PO TIDCM [facility] Last Admin: 07/22/18 08:25 Dose: 667 mg Carvedilol (Coreg -) 25 mg PO BID [facility] Last Admin: 07/22/18 12:38 Dose: 25 mg Clonidine HCl (Catapres Tts Patch -) 0.2 mg TD Tu@2200 [facility] Last Admin: 07/20/18 02:31 Dose: 0.2 mg Docusate Sodium (Colace -) 100 mg PO BID [facility] Last Admin: 07/21/18 21:15 Dose: Not Given Ergocalciferol (Drisdol -) 50,000 unit PO Olivier@1000 [facility] Folic Acid (Folic Acid -) 1 mg PO DAILY [facility] Last Admin: 07/21/18 13:34 Dose: 1 mg Heparin Sodium (Porcine) (Heparin -) 5,000 unit SQ BID [facility] Last Admin: 07/21/18 21:11 Dose: 5,000 unit Hydralazine HCl (Apresoline -) 25 mg PO TID [facility] Last Admin: 07/22/18 05:44 Dose: 25 mg Piperacillin Sod/Tazobactam (Sod 2.25 gm/ Dextrose) 100 mls @ 100 mls/hr IVPB Q8H-IV [facility]; Protocol Last Admin: 07/22/18 10:39 Dose: 100 mls/hr Nifedipine (Procardia Xl -) 60 mg PO DAILY [facility] Last Admin: 07/22/18 12:38 Dose: 60 mg Pantoprazole Sodium (Protonix -) 40 mg PO DAILY [facility] Last Admin: 07/21/18 13:36 Dose: 40 mg - Objective Vital Signs: Vital Signs Temperature 98.7 F 07/22/18 09:13 Pulse Rate 79 07/22/18 12:40 Respiratory Rate 18 07/22/18 12:40 Blood Pressure 205/96 07/22/18 12:40 O2 Sat by Pulse Oximetry (%) 95 07/21/18 20:56 Constitutional: Yes: Calm Eyes: Yes: Conjunctiva Clear HENT: Yes: Atraumatic Neck: Yes: Supple Cardiovascular: Yes: S1, S2 Respiratory: Yes: On Nasal O2 Gastrointestinal: Yes: Normal Bowel Sounds, Soft Genitourinary: Yes: WNL Musculoskeletal: Yes: WNL Edema: No Neurological: Yes: Oriented Psychiatric: Yes: Oriented Labs: CBC, BMP 07/22/18 11:20 07/22/18 11:20 INR, PTT INR 0.97 (0.83-1.09) 07/19/18 12:47 Problem List - Problems (1) ESRD (end stage renal disease) Code(s): N18.6 - END STAGE RENAL DISEASE (2) HTN (hypertension) Code(s): I10 - ESSENTIAL (PRIMARY) HYPERTENSION (3) CAD (coronary artery disease) Code(s): I25.10 - ATHSCL HEART DISEASE OF [place] CORONARY ARTERY W/O ANG PCTRS Qualifiers: Coronary Disease-Associated Artery/Lesion type: [place] artery [place] vs. transplanted heart: [place] heart Associated angina: without angina Qualified Code(s): I25.10 - Atherosclerotic heart disease of [place] coronary artery without angina pectoris (4) Hyponatremia Code(s): E87.1 - HYPO-OSMOLALITY AND HYPONATREMIA (5) Fever Code(s): R50.9 - FEVER, UNSPECIFIED Qualifiers: Fever type: unspecified Qualified Code(s): R50.9 - Fever, unspecified (6) Hypoxia Code(s): R09.02 - HYPOXEMIA Assessment/Plan Current Medicatio Current Medications Generic Name Dose Route Start Last Admin Trade Name Freq PRN Reason Stop Dose Admin Acetaminophen 650 mg 07/19/18 20:47 07/20/18 02:32 Tylenol - PO 650 mg Q6H PRN Administration FEVER Aspirin 325 mg 07/20/18 10:00 07/21/18 13:34 Ecotrin - PO 325 mg DAILY [facility] Administration Atorvastatin Calcium 20 mg 07/19/18 22:00 07/21/18 21:11 Lipitor - PO 20 mg HS [facility] Administration Calcium Acetate 667 mg 07/20/18 08:00 07/22/18 08:25 Phoslo - PO 667 mg TIDCM [facility] Administration Carvedilol 25 mg 07/20/18 22:00 07/22/18 12:38 Coreg - PO 25 mg BID [facility] Administration Clonidine HCl 0.2 mg 07/19/18 22:00 07/20/18 02:31 Catapres Tts Patch - TD 0.2 mg Tu@2200 [facility] Administration Docusate Sodium 100 mg 07/19/18 22:00 07/21/18 21:15 Colace - PO Not Given BID [facility] Ergocalciferol 50,000 unit 07/24/18 10:00 Drisdol - PO Olivier@1000 [facility] Folic Acid 1 mg 07/20/18 10:00 07/21/18 13:34 Folic Acid - PO 1 mg DAILY [facility] Administration Heparin Sodium (Porcine) 5,000 unit 07/19/18 22:00 07/21/18 21:11 Heparin - SQ 5,000 unit BID [facility] Administration Hydralazine HCl 25 mg 07/19/18 22:00 07/22/18 05:44 Apresoline - PO 25 mg TID [facility] Administration Piperacillin Sod/Tazobactam 100 mls @ 100 mls/hr 07/22/18 02:00 07/22/18 10: 39 Sod 2.25 gm/ Dextrose IVPB 100 mls/hr Q8H-IV [facility] Administration Protocol Nifedipine 60 mg 07/20/18 10:15 07/22/18 12:38 Procardia Xl - PO 60 mg DAILY [facility] Administration Pantoprazole Sodium 40 mg 07/20/18 10:00 07/21/18 13:36 Protonix - PO 40 mg DAILY [facility] Administration Impression 1. ESRD 2. hyponatremia 3. PNA 4. sepsis 5. pleural effusion 6. CAD 7. hx CABG 8. DM 9. HLD 10. anemia 11. hypoxia Plan - BP is not controlled, please do not hold bp meds on HD days - give all am meds and monitor blood pressure - HD today - monitor hg - will follow pt Dr Siu
--- NOTE | 2018-07-22 13:54 | PN ---
Progress Note, Physician History of Present Illness: stable being dialysed comfortable no complaints - Current Medication List Current Medications: Active Medications Acetaminophen (Tylenol -) 650 mg PO Q6H PRN PRN Reason: FEVER Last Admin: 07/20/18 02:32 Dose: 650 mg Aspirin (Ecotrin -) 325 mg PO DAILY [facility] Last Admin: 07/21/18 13:34 Dose: 325 mg Atorvastatin Calcium (Lipitor -) 20 mg PO HS [facility] Last Admin: 07/21/18 21:11 Dose: 20 mg Calcium Acetate (Phoslo -) 667 mg PO TIDCM [facility] Last Admin: 07/22/18 08:25 Dose: 667 mg Carvedilol (Coreg -) 25 mg PO BID [facility] Last Admin: 07/22/18 12:38 Dose: 25 mg Clonidine HCl (Catapres Tts Patch -) 0.2 mg TD Tu@2200 [facility] Last Admin: 07/20/18 02:31 Dose: 0.2 mg Docusate Sodium (Colace -) 100 mg PO BID [facility] Last Admin: 07/21/18 21:15 Dose: Not Given Ergocalciferol (Drisdol -) 50,000 unit PO Olivier@1000 [facility] Folic Acid (Folic Acid -) 1 mg PO DAILY [facility] Last Admin: 07/21/18 13:34 Dose: 1 mg Heparin Sodium (Porcine) (Heparin -) 5,000 unit SQ BID [facility] Last Admin: 07/21/18 21:11 Dose: 5,000 unit Hydralazine HCl (Apresoline -) 25 mg PO TID [facility] Last Admin: 07/22/18 05:44 Dose: 25 mg Piperacillin Sod/Tazobactam (Sod 2.25 gm/ Dextrose) 100 mls @ 100 mls/hr IVPB Q8H-IV [facility]; Protocol Last Admin: 07/22/18 10:39 Dose: 100 mls/hr Nifedipine (Procardia Xl -) 60 mg PO DAILY [facility] Last Admin: 07/22/18 12:38 Dose: 60 mg Pantoprazole Sodium (Protonix -) 40 mg PO DAILY [facility] Last Admin: 07/21/18 13:36 Dose: 40 mg - Objective Vital Signs: Vital Signs Temperature 98.7 F 07/22/18 09:13 Pulse Rate 79 07/22/18 12:40 Respiratory Rate 18 07/22/18 12:40 Blood Pressure 205/96 07/22/18 12:40 O2 Sat by Pulse Oximetry (%) 95 07/22/18 09:00 Constitutional: Yes: No Distress, Calm Cardiovascular: Yes: S1, S2 Respiratory: Yes: Regular, Poor Air Entry (at the bases) Gastrointestinal: Yes: Normal Bowel Sounds, Soft Musculoskeletal: Yes: WNL Extremities: Yes: Other Neurological: Yes: Alert, Oriented Psychiatric: Yes: Alert, Oriented Labs: CBC, BMP 07/22/18 11:20 07/22/18 11:20 INR, PTT INR 0.97 (0.83-1.09) 07/19/18 12:47 - ....Imaging Chest X-ray: Report Reviewed, Image Reviewed Assessment/Plan looking at the p[atient symptoms i am worried if he has parapneumonic infection and the way he became sob and spiked a fever does he acute pneumonia due to strep also his eosinophils have been increasing and they are high and if the eosinphils do not trend down then we can look it from simple point of view that does this patient have any parasitic infection and then work him up Problem List - Problems (1) CAD (coronary artery disease) Code(s): I25.10 - ATHSCL HEART DISEASE OF [place] CORONARY ARTERY W/O ANG PCTRS Qualifiers: Coronary Disease-Associated Artery/Lesion type: [place] artery [place] vs. transplanted heart: [place] heart Associated angina: without angina Qualified Code(s): I25.10 - Atherosclerotic heart disease of [place] coronary artery without angina pectoris (2) Fever Code(s): R50.9 - FEVER, UNSPECIFIED Qualifiers: Fever type: unspecified Qualified Code(s): R50.9 - Fever, unspecified (3) Hypertensive cardiomyopathy Code(s): I11.9 - HYPERTENSIVE HEART DISEASE WITHOUT HEART FAILURE; I43 - CARDIOMYOPATHY IN DISEASES CLASSIFIED ELSEWHERE Qualifiers: Heart failure presence: with heart failure Qualified Code(s): I11.0 - Hypertensive heart disease with heart failure; I43 - Cardiomyopathy in diseases classified elsewhere (4) Hypoxia Code(s): R09.02 - HYPOXEMIA 5 pleural effusion 5 eosinophilia plan await for finalization of tap cx if negative will stop abx rest continue current mgmt patient stable
[2018-07-22] MEDS: DOCUSATE SODIUM 100 MG CAPSULE (FP) PO SCH ×2 (15:24→21:06)
[2018-07-22] MEDS: PANTOPRAZOLE 40 MG TABLET (FP) PO SCH (15:24)
[2018-07-22] MEDS: FOLIC ACID 1 MG TABLET (FP) PO SCH (15:24)
[2018-07-22] MEDS: ASPIRIN 325 MG ENTERIC COATED TABLET (FP) PO SCH (15:24)
[2018-07-22] MEDS: HEPARIN NA (PORCINE) 5,000 UNITS/ML 1ML VIAL SQ SCH ×2 (15:25→21:07)
[2018-07-22 16:07] LABS: CREATININE 2.3 mg/dL (0.7-1.3)
[2018-07-22] MEDS: ATORVASTATIN CA 20 MG TABLET (FP) PO SCH (21:06)
[2018-07-23] MEDS ORDERED: DEXTROSE 5%-WATER 100 ML IVPB ONE ×3 (00:23→17:15)
[2018-07-23] MEDS ORDERED: PIPERACILLIN/TAZOBACTAM 2.25 GM VIAL IVPB ONE ×3 (00:23→17:15)
[2018-07-23] MEDS: PIPERACILLIN/TAZOB 2.25 GM 2.25 GM in DEXTROSE 5%-WATER 100 ML IVPB SCH ×3 (01:22→17:21)
[2018-07-23] MEDS: hydrALAZINE HCL 25 MG TABLET (FP) PO SCH ×3 (05:55→22:18)
[2018-07-23] MEDS: CALCIUM ACETATE 667 MG CAPSULE (FP) PO SCH ×3 (08:30→17:21)
[2018-07-23] MEDS: ASPIRIN 325 MG ENTERIC COATED TABLET (FP) PO SCH (10:56)
[2018-07-23] MEDS: HEPARIN NA (PORCINE) 5,000 UNITS/ML 1ML VIAL SQ SCH ×2 (10:56→22:17)
[2018-07-23] MEDS: DOCUSATE SODIUM 100 MG CAPSULE (FP) PO SCH ×2 (10:56→22:18)
[2018-07-23] MEDS: CARVEDILOL 25 MG TABLET (FP) PO SCH ×2 (10:56→22:18)
[2018-07-23] MEDS: FOLIC ACID 1 MG TABLET (FP) PO SCH (10:56)
[2018-07-23] MEDS: PANTOPRAZOLE 40 MG TABLET (FP) PO SCH (10:57)
[2018-07-23] MEDS: NIFEdipine E.R 60 MG TABLET (UD) PO SCH (10:57)
--- NOTE | 2018-07-23 11:02 | PN ---
Progress Note, Physician History of Present Illness: Pt seen and examined. Tmax 100.1F. States he feels better. Denies SOB, chills, abd pain, rash/itching. - Current Medication List Current Medications: Active Medications Acetaminophen (Tylenol -) 650 mg PO Q6H PRN PRN Reason: FEVER Last Admin: 07/20/18 02:32 Dose: 650 mg Aspirin (Ecotrin -) 325 mg PO DAILY [facility] Last Admin: 07/22/18 15:24 Dose: 325 mg Atorvastatin Calcium (Lipitor -) 20 mg PO HS [facility] Last Admin: 07/22/18 21:06 Dose: 20 mg Calcium Acetate (Phoslo -) 667 mg PO TIDCM [facility] Last Admin: 07/22/18 17:19 Dose: 667 mg Carvedilol (Coreg -) 25 mg PO BID [facility] Last Admin: 07/22/18 21:06 Dose: 25 mg Clonidine HCl (Catapres Tts Patch -) 0.2 mg TD Tu@2200 [facility] Last Admin: 07/20/18 02:31 Dose: 0.2 mg Docusate Sodium (Colace -) 100 mg PO BID [facility] Last Admin: 07/22/18 21:06 Dose: 100 mg Ergocalciferol (Drisdol -) 50,000 unit PO Olivier@1000 [facility] Folic Acid (Folic Acid -) 1 mg PO DAILY [facility] Last Admin: 07/22/18 15:24 Dose: 1 mg Heparin Sodium (Porcine) (Heparin -) 5,000 unit SQ BID [facility] Last Admin: 07/22/18 21:07 Dose: 5,000 unit Hydralazine HCl (Apresoline -) 25 mg PO TID [facility] Last Admin: 07/23/18 05:55 Dose: 25 mg Piperacillin Sod/Tazobactam (Sod 2.25 gm/ Dextrose) 100 mls @ 100 mls/hr IVPB Q8H-IV [facility]; Protocol Last Admin: 07/23/18 01:22 Dose: 100 mls/hr Nifedipine (Procardia Xl -) 60 mg PO DAILY [facility] Last Admin: 07/22/18 12:38 Dose: 60 mg Pantoprazole Sodium (Protonix -) 40 mg PO DAILY [facility] Last Admin: 07/22/18 15:24 Dose: 40 mg - Objective Vital Signs: Vital Signs Temperature 97.9 F 07/23/18 09:00 Pulse Rate 73 09/01/18 09:00 Respiratory Rate 18 07/23/18 09:00 Blood Pressure 146/76 07/23/18 09:00 O2 Sat by Pulse Oximetry (%) 95 07/22/18 21:00 Constitutional: Yes: No Distress, Calm Cardiovascular: Yes: Regular Rate and Rhythm Respiratory: Yes: Diminished (mildly diminished Rt based) Gastrointestinal: Yes: Normal Bowel Sounds, Soft Edema: No Neurological: Yes: Alert Labs: CBC, BMP 07/22/18 11:20 07/22/18 15:00 INR, PTT INR 0.97 (0.83-1.09) 07/19/18 12:47 Microbiology 07/21/18 12:40 Pleural Fluid Gram Stain - Final 07/21/18 12:40 Pleural Fluid Body Fluid Culture - Preliminary NO AEROBIC GROWTH, 24 HRS 07/19/18 12:47 Blood - Peripheral Venous Blood Culture - Preliminary NO GROWTH OBTAINED AFTER 72 HOURS, INCUBATION TO CONTINUE FOR 2 DAYS. 07/19/18 12:47 Blood - Peripheral Venous Blood Culture - Preliminary NO GROWTH OBTAINED AFTER 72 HOURS, INCUBATION TO CONTINUE FOR 2 DAYS. 07/21/18 12:40 Pleural Fluid AFB Smear Concentration - Preliminary 07/21/18 12:40 Pleural Fluid Mycobacterial Culture - Preliminary 07/21/18 12:40 Pleural Fluid MATTY Preparation - Preliminary 07/21/18 12:40 Pleural Fluid Fungal Culture - Preliminary 07/19/18 13:05 Urine - Urine Clean Catch Urine Culture - Final NO GROWTH OBTAINED Problem List - Problems (1) Acute on chronic diastolic heart failure Code(s): I50.33 - ACUTE ON CHRONIC DIASTOLIC (CONGESTIVE) HEART FAILURE (2) CAD (coronary artery disease) Code(s): I25.10 - ATHSCL HEART DISEASE OF [place] CORONARY ARTERY W/O ANG PCTRS Qualifiers: Coronary Disease-Associated Artery/Lesion type: [place] artery [place] vs. transplanted heart: [place] heart Associated angina: without angina Qualified Code(s): I25.10 - Atherosclerotic heart disease of [place] coronary artery without angina pectoris (3) ESRD (end stage renal disease) Code(s): N18.6 - END STAGE RENAL DISEASE (4) Fever Code(s): R50.9 - FEVER, UNSPECIFIED Qualifiers: Fever type: unspecified Qualified Code(s): R50.9 - Fever, unspecified (5) HTN (hypertension) Code(s): I10 - ESSENTIAL (PRIMARY) HYPERTENSION (6) Hypertensive cardiomyopathy Code(s): I11.9 - HYPERTENSIVE HEART DISEASE WITHOUT HEART FAILURE; I43 - CARDIOMYOPATHY IN DISEASES CLASSIFIED ELSEWHERE Qualifiers: Heart failure presence: with heart failure Qualified Code(s): I11.0 - Hypertensive heart disease with heart failure; I43 - Cardiomyopathy in diseases classified elsewhere (7) Hypoxia Code(s): R09.02 - HYPOXEMIA (8) Pleural effusion Code(s): J90 - PLEURAL EFFUSION, NOT ELSEWHERE CLASSIFIED (9) S/P CABG (coronary artery bypass graft) Code(s): Z95.1 - PRESENCE OF AORTOCORONARY BYPASS GRAFT Assessment/Plan 63 y.o. male with PMH of CAD s/p CABG, CHF, ESRD on HD, DM presenting with fever , hypoxia Pleural Effusion s/p thoracentesis Eosinophilia Acute on Chronic CHF Hypoxemia Fever ESRD on HD DM CAD -- pleural fluid Cx neg 24h -- mild temp elevation -- send stool O+P, strongyloides Ab -- blood cultures neg -- will consider d/c antibiotics tomorrow if stable continue monitor vitals, cbc
--- NOTE | 2018-07-23 11:19 | PN ---
Progress Note (short form) - Note Progress Note: comfortable better no distress Vital Signs Temp 97.9 F 07/23/18 09:00 Pulse 73 07/23/18 09:00 Resp 18 07/23/18 09:00 BP 146/76 07/23/18 09:00 Pulse Ox 95 07/22/18 21:00 Intake & Output 07/22/18 07/22/18 07/23/18 11:59 23:59 11:59 Intake Total 220 200 Balance 220 200 Weight 139 lb 138 lb 11.2 oz Intake: IVPB 50 Oral 220 150 Other: Voiding Method Urinal Urinal Weight Measurement Method Standing Scale Active Medications Acetaminophen (Tylenol -) 650 mg PO Q6H PRN PRN Reason: FEVER Last Admin: 07/20/18 02:32 Dose: 650 mg Aspirin (Ecotrin -) 325 mg PO DAILY [facility] Last Admin: 07/23/18 10:56 Dose: 325 mg Atorvastatin Calcium (Lipitor -) 20 mg PO HS [facility] Last Admin: 07/22/18 21:06 Dose: 20 mg Calcium Acetate (Phoslo -) 667 mg PO TIDCM [facility] Last Admin: 07/23/18 08:30 Dose: Not Given Carvedilol (Coreg -) 25 mg PO BID [facility] Last Admin: 07/23/18 10:56 Dose: 25 mg Clonidine HCl (Catapres Tts Patch -) 0.2 mg TD Tu@2200 [facility] Last Admin: 07/20/18 02:31 Dose: 0.2 mg Docusate Sodium (Colace -) 100 mg PO BID [facility] Last Admin: 07/23/18 10:56 Dose: 100 mg Ergocalciferol (Drisdol -) 50,000 unit PO Olivier@1000 [facility] Folic Acid (Folic Acid -) 1 mg PO DAILY [facility] Last Admin: 07/23/18 10:56 Dose: 1 mg Heparin Sodium (Porcine) (Heparin -) 5,000 unit SQ BID [facility] Last Admin: 07/23/18 10:56 Dose: 5,000 unit Hydralazine HCl (Apresoline -) 25 mg PO TID [facility] Last Admin: 07/23/18 05:55 Dose: 25 mg Piperacillin Sod/Tazobactam (Sod 2.25 gm/ Dextrose) 100 mls @ 100 mls/hr IVPB Q8H-IV [facility]; Protocol Last Admin: 07/23/18 10:57 Dose: 100 mls/hr Nifedipine (Procardia Xl -) 60 mg PO DAILY [facility] Last Admin: 07/23/18 10:57 Dose: 60 mg Pantoprazole Sodium (Protonix -) 40 mg PO DAILY [facility] Last Admin: 07/23/18 10:57 Dose: 40 mg CBC, BMP 07/22/18 11:20 07/22/18 15:00 Microbiology 07/21/18 12:40 Gram Stain - Final Pleural Fluid Body Fluid Culture - Preliminary NO AEROBIC GROWTH, 24 HRS 07/19/18 12:47 Blood Culture - Preliminary Blood - Peripheral Venous NO GROWTH OBTAINED AFTER 72 HOURS, INCUBATION TO CONTINUE FOR 2 DAYS. 07/19/18 12:47 Blood Culture - Preliminary Blood - Peripheral Venous NO GROWTH OBTAINED AFTER 72 HOURS, INCUBATION TO CONTINUE FOR 2 DAYS. 07/21/18 12:40 AFB Smear Concentration - Preliminary Pleural Fluid Mycobacterial Culture - Preliminary Physical Examination Constitutional: Yes: No Distress, comfortable. Eyes: Yes: Conjunctiva Clear Neck: Yes: Supple, Other (No JVD) Cardiovascular: Yes: Regular Rate and Rhythm Respiratory: Yes: Diminished at bases Gastrointestinal: Yes: Soft/ non tender . bs + Edema: No Neurological: Yes: Alert (poor historian. Non focal exam) Assessment/Plan status post thoracocentesis stable Continue antibiotics Await cytology Continue other medications Will follow dialysis per renal daily oob - chair Problem List - Problems (1) CAD (coronary artery disease) Code(s): I25.10 - ATHSCL HEART DISEASE OF [place] CORONARY ARTERY W/O ANG PCTRS Qualifiers: Coronary Disease-Associated Artery/Lesion type: [place] artery [place] vs. transplanted heart: [place] heart Associated angina: without angina Qualified Code(s): I25.10 - Atherosclerotic heart disease of [place] coronary artery without angina pectoris (2) Fever Code(s): R50.9 - FEVER, UNSPECIFIED Qualifiers: Fever type: unspecified Qualified Code(s): R50.9 - Fever, unspecified (3) Hypertensive cardiomyopathy Code(s): I11.9 - HYPERTENSIVE HEART DISEASE WITHOUT HEART FAILURE; I43 - CARDIOMYOPATHY IN DISEASES CLASSIFIED ELSEWHERE Qualifiers: Heart failure presence: with heart failure Qualified Code(s): I11.0 - Hypertensive heart disease with heart failure; I43 - Cardiomyopathy in diseases classified elsewhere (4) Hypoxia Code(s): R09.02 - HYPOXEMIA
--- NOTE | 2018-07-23 12:51 | PN ---
Progress Note (short form) - Note Progress Note: PULMONARY States breathing is better. No chest pain. No fevers or chills. Vital Signs Period Temp Pulse Resp BP Sys/[place]iang Pulse Ox Last 24 Hr 97.9 F-100.1 F 70-81 18-20 110-201/61-89 95 Intake & Output 07/20/18 07/21/18 07/22/18 07/23/18 23:59 23:59 23:59 23:59 Intake Total 1020 710 220 440 Output Total 100 Balance 920 710 220 440 Weight 63.957 kg 63.049 kg 62.913 kg Gen: NAD at rest Heart: RRR Lung: right basilar rales Abd: soft, nontender Ext: no edema CBC, BMP 07/22/18 11:20 07/22/18 15:00 Active Medications Acetaminophen (Tylenol -) 650 mg PO Q6H PRN PRN Reason: FEVER Last Admin: 07/20/18 02:32 Dose: 650 mg Aspirin (Ecotrin -) 325 mg PO DAILY [facility] Last Admin: 07/23/18 10:56 Dose: 325 mg Atorvastatin Calcium (Lipitor -) 20 mg PO HS [facility] Last Admin: 07/22/18 21:06 Dose: 20 mg Calcium Acetate (Phoslo -) 667 mg PO TIDCM [facility] Last Admin: 07/23/18 12:46 Dose: Not Given Carvedilol (Coreg -) 25 mg PO BID [facility] Last Admin: 07/23/18 10:56 Dose: 25 mg Clonidine HCl (Catapres Tts Patch -) 0.2 mg TD Tu@2200 [facility] Last Admin: 07/20/18 02:31 Dose: 0.2 mg Docusate Sodium (Colace -) 100 mg PO BID [facility] Last Admin: 07/23/18 10:56 Dose: 100 mg Ergocalciferol (Drisdol -) 50,000 unit PO Olivier@1000 [facility] Folic Acid (Folic Acid -) 1 mg PO DAILY [facility] Last Admin: 07/23/18 10:56 Dose: 1 mg Heparin Sodium (Porcine) (Heparin -) 5,000 unit SQ BID [facility] Last Admin: 07/23/18 10:56 Dose: 5,000 unit Hydralazine HCl (Apresoline -) 25 mg PO TID [facility] Last Admin: 07/23/18 05:55 Dose: 25 mg Piperacillin Sod/Tazobactam (Sod 2.25 gm/ Dextrose) 100 mls @ 100 mls/hr IVPB Q8H-IV [facility]; Protocol Last Admin: 07/23/18 10:57 Dose: 100 mls/hr Nifedipine (Procardia Xl -) 60 mg PO DAILY [facility] Last Admin: 07/23/18 10:57 Dose: 60 mg Pantoprazole Sodium (Protonix -) 40 mg PO DAILY [facility] Last Admin: 07/23/18 10:57 Dose: 40 mg A/P Acute Hypoxic Respiratory Failure Acute on Chronic Diastolic Heart Failure Right Pleural Effusion s/p thoracentesis r/o Pneumonia Mitral Regurgitation ESRD on HD CAD s/p CABG HTN DM Hyperlipidemia - continue antibiotics - f/u pleural studies - HD per renal - BP control - O2 to keep SpO2 >90% - DVT prophylaxis
--- NOTE | 2018-07-23 13:35 | PN ---
Progress Note, Physician History of Present Illness: Pt seen and examined at bedside. He is awake and alert. He denies shortness of breath. - Current Medication List Current Medications: Active Medications Acetaminophen (Tylenol -) 650 mg PO Q6H PRN PRN Reason: FEVER Last Admin: 07/20/18 02:32 Dose: 650 mg Aspirin (Ecotrin -) 325 mg PO DAILY [facility] Last Admin: 07/23/18 10:56 Dose: 325 mg Atorvastatin Calcium (Lipitor -) 20 mg PO HS [facility] Last Admin: 07/22/18 21:06 Dose: 20 mg Calcium Acetate (Phoslo -) 667 mg PO TIDCM [facility] Last Admin: 07/23/18 12:46 Dose: Not Given Carvedilol (Coreg -) 25 mg PO BID [facility] Last Admin: 07/23/18 10:56 Dose: 25 mg Clonidine HCl (Catapres Tts Patch -) 0.2 mg TD Tu@2200 [facility] Last Admin: 07/20/18 02:31 Dose: 0.2 mg Docusate Sodium (Colace -) 100 mg PO BID [facility] Last Admin: 07/23/18 10:56 Dose: 100 mg Ergocalciferol (Drisdol -) 50,000 unit PO Olivier@1000 [facility] Folic Acid (Folic Acid -) 1 mg PO DAILY [facility] Last Admin: 07/23/18 10:56 Dose: 1 mg Heparin Sodium (Porcine) (Heparin -) 5,000 unit SQ BID [facility] Last Admin: 07/23/18 10:56 Dose: 5,000 unit Hydralazine HCl (Apresoline -) 25 mg PO TID [facility] Last Admin: 07/23/18 05:55 Dose: 25 mg Piperacillin Sod/Tazobactam (Sod 2.25 gm/ Dextrose) 100 mls @ 100 mls/hr IVPB Q8H-IV [facility]; Protocol Last Admin: 07/23/18 10:57 Dose: 100 mls/hr Nifedipine (Procardia Xl -) 60 mg PO DAILY [facility] Last Admin: 07/23/18 10:57 Dose: 60 mg Pantoprazole Sodium (Protonix -) 40 mg PO DAILY [facility] Last Admin: 07/23/18 10:57 Dose: 40 mg - Objective Vital Signs: Vital Signs Temperature 97.9 F 07/23/18 09:00 Pulse Rate 73 07/23/18 09:00 Respiratory Rate 18 07/23/18 09:00 Blood Pressure 146/76 07/23/18 09:00 O2 Sat by Pulse Oximetry (%) 97 07/23/18 09:00 Constitutional: Yes: Calm Eyes: Yes: Conjunctiva Clear HENT: Yes: Atraumatic Neck: Yes: Supple Cardiovascular: Yes: S1, S2 Respiratory: Yes: CTA Bilaterally Gastrointestinal: Yes: Soft Genitourinary: Yes: WNL Musculoskeletal: Yes: WNL Edema: No Neurological: Yes: Oriented Psychiatric: Yes: Oriented Labs: CBC, BMP 07/22/18 11:20 07/22/18 15:00 INR, PTT INR 0.97 (0.83-1.09) 07/19/18 12:47 Problem List - Problems (1) ESRD (end stage renal disease) Code(s): N18.6 - END STAGE RENAL DISEASE (2) HTN (hypertension) Code(s): I10 - ESSENTIAL (PRIMARY) HYPERTENSION (3) CAD (coronary artery disease) Code(s): I25.10 - ATHSCL HEART DISEASE OF [place] CORONARY ARTERY W/O ANG PCTRS Qualifiers: Coronary Disease-Associated Artery/Lesion type: [place] artery [place] vs. transplanted heart: [place] heart Associated angina: without angina Qualified Code(s): I25.10 - Atherosclerotic heart disease of [place] coronary artery without angina pectoris (4) Hyponatremia Code(s): E87.1 - HYPO-OSMOLALITY AND HYPONATREMIA (5) Fever Code(s): R50.9 - FEVER, UNSPECIFIED Qualifiers: Fever type: unspecified Qualified Code(s): R50.9 - Fever, unspecified (6) Hypoxia Code(s): R09.02 - HYPOXEMIA Assessment/Plan Current Medications Generic Name Dose Route Start Last Admin Trade Name Freq PRN Reason Stop Dose Admin Acetaminophen 650 mg 07/19/18 20:47 07/20/18 02:32 Tylenol - PO 650 mg Q6H PRN Administration FEVER Aspirin 325 mg 07/20/18 10:00 07/23/18 10:56 Ecotrin - PO 325 mg DAILY [facility] Administration Atorvastatin Calcium 20 mg 07/19/18 22:00 07/22/18 21:06 Lipitor - PO 20 mg HS [facility] Administration Calcium Acetate 667 mg 07/20/18 08:00 07/23/18 12:46 Phoslo - PO Not Given TIDCM [facility] Carvedilol 25 mg 07/20/18 22:00 07/23/18 10:56 Coreg - PO 25 mg BID [facility] Administration Clonidine HCl 0.2 mg 07/19/18 22:00 07/20/18 02:31 Catapres Tts Patch - TD 0.2 mg Tu@2200 [facility] Administration Docusate Sodium 100 mg 07/19/18 22:00 07/23/18 10:56 Colace - PO 100 mg BID [facility] Administration Ergocalciferol 50,000 unit 07/24/18 10:00 Drisdol - PO Olivier@1000 [facility] Folic Acid 1 mg 07/20/18 10:00 07/23/18 10:56 Folic Acid - PO 1 mg DAILY [facility] Administration Heparin Sodium (Porcine) 5,000 unit 07/19/18 22:00 07/23/18 10:56 Heparin - SQ 5,000 unit BID [facility] Administration Hydralazine HCl 25 mg 07/19/18 22:00 07/23/18 05:55 Apresoline - PO 25 mg TID [facility] Administration Piperacillin Sod/Tazobactam 100 mls @ 100 mls/hr 07/22/18 02:00 07/23/18 10: 57 Sod 2.25 gm/ Dextrose IVPB 100 mls/hr Q8H-IV [facility] Administration Protocol Nifedipine 60 mg 07/20/18 10:15 07/23/18 10:57 Procardia Xl - PO 60 mg DAILY [facility] Administration Pantoprazole Sodium 40 mg 07/20/18 10:00 07/23/18 10:57 Protonix - PO 40 mg DAILY [facility] Administration Microbiology 07/19/18 13:05 Urine - Urine Clean Catch Urine Culture - Final NO GROWTH OBTAINED 07/19/18 12:47 Blood - Peripheral Venous Blood Culture - Preliminary NO GROWTH OBTAINED AFTER 96 HOURS, INCUBATION TO CONTINUE FOR 1 DAYS. 07/19/18 12:47 Blood - Peripheral Venous Blood Culture - Preliminary NO GROWTH OBTAINED AFTER 96 HOURS, INCUBATION TO CONTINUE FOR 1 DAYS. Impression 1. ESRD 2. hyponatremia 3. PNA 4. sepsis 5. pleural effusion 6. CAD 7. hx CABG 8. DM 9. HLD 10. anemia 11. hypoxia Plan - pt tolerated HD yesterday - next HD on Wednesday - BP is stable - please do not hold bp on HD days - will follow pt Dr Siu
[2018-07-23] MEDS: ATORVASTATIN CA 20 MG TABLET (FP) PO SCH (22:18)
[2018-07-24] MEDS ORDERED: PIPERACILLIN/TAZOBACTAM 2.25 GM VIAL IVPB ONE ×2 (00:31→11:23)
[2018-07-24] MEDS ORDERED: DEXTROSE 5%-WATER 100 ML IVPB ONE ×2 (00:32→11:24)
[2018-07-24] MEDS: PIPERACILLIN/TAZOB 2.25 GM 2.25 GM in DEXTROSE 5%-WATER 100 ML IVPB SCH ×2 (01:01→10:44)
[2018-07-24] MEDS: hydrALAZINE HCL 25 MG TABLET (FP) PO SCH ×3 (06:44→21:13)
[2018-07-24] MEDS ORDERED: ERGOCALCIFEROL (VITAMIN D2) 50,000 UNIT CAPSULE (FP) PO SCH (10:00)
[2018-07-24] MEDS: DOCUSATE SODIUM 100 MG CAPSULE (FP) PO SCH ×2 (11:43→21:13)
[2018-07-24] MEDS: CALCIUM ACETATE 667 MG CAPSULE (FP) PO SCH ×3 (11:43→17:51)
[2018-07-24] MEDS: CARVEDILOL 25 MG TABLET (FP) PO SCH ×2 (11:43→21:13)
[2018-07-24] MEDS: HEPARIN NA (PORCINE) 5,000 UNITS/ML 1ML VIAL SQ SCH ×2 (11:44→21:12)
[2018-07-24] MEDS: PANTOPRAZOLE 40 MG TABLET (FP) PO SCH (11:44)
[2018-07-24] MEDS: FOLIC ACID 1 MG TABLET (FP) PO SCH (11:44)
[2018-07-24] MEDS: NIFEdipine E.R 60 MG TABLET (UD) PO SCH (11:44)
[2018-07-24] MEDS: ASPIRIN 325 MG ENTERIC COATED TABLET (FP) PO SCH (11:44)
--- NOTE | 2018-07-24 12:11 | PN ---
Progress Note, Physician History of Present Illness: Afebrile, dyspnea and BP control improved, post right thoracentesis, fluid cultures negative so far. - Current Medication List Current Medications: Active Medications Acetaminophen (Tylenol -) 650 mg PO Q6H PRN PRN Reason: FEVER Last Admin: 07/20/18 02:32 Dose: 650 mg Aspirin (Ecotrin -) 325 mg PO DAILY [facility] Last Admin: 07/24/18 11:44 Dose: 325 mg Atorvastatin Calcium (Lipitor -) 20 mg PO HS [facility] Last Admin: 07/23/18 22:18 Dose: 20 mg Calcium Acetate (Phoslo -) 667 mg PO TIDCM [facility] Last Admin: 07/24/18 11:43 Dose: Not Given Carvedilol (Coreg -) 25 mg PO BID [facility] Last Admin: 07/24/18 11:43 Dose: 25 mg Clonidine HCl (Catapres Tts Patch -) 0.2 mg TD Tu@2200 [facility] Last Admin: 07/20/18 02:31 Dose: 0.2 mg Docusate Sodium (Colace -) 100 mg PO BID [facility] Last Admin: 07/24/18 11:43 Dose: 100 mg Ergocalciferol (Drisdol -) 50,000 unit PO Olivier@1000 [facility] Last Admin: 07/24/18 11:43 Dose: 50,000 unit Folic Acid (Folic Acid -) 1 mg PO DAILY [facility] Last Admin: 07/24/18 11:44 Dose: 1 mg Heparin Sodium (Porcine) (Heparin -) 5,000 unit SQ BID [facility] Last Admin: 07/24/18 11:44 Dose: 5,000 unit Hydralazine HCl (Apresoline -) 25 mg PO TID [facility] Last Admin: 07/24/18 06:44 Dose: 25 mg Piperacillin Sod/Tazobactam (Sod 2.25 gm/ Dextrose) 100 mls @ 100 mls/hr IVPB Q8H-IV [facility]; Protocol Last Admin: 07/24/18 10:44 Dose: 100 mls/hr Nifedipine (Procardia Xl -) 60 mg PO DAILY [facility] Last Admin: 07/24/18 11:44 Dose: 60 mg Pantoprazole Sodium (Protonix -) 40 mg PO DAILY [facility] Last Admin: 07/24/18 11:44 Dose: 40 mg - Objective Vital Signs: Vital Signs Temperature 98 F 07/24/18 05:00 Pulse Rate 74 07/24/18 05:00 Respiratory Rate 20 07/24/18 05:00 Blood Pressure 169/79 07/24/18 05:00 O2 Sat by Pulse Oximetry (%) 93 L 07/23/18 21:00 Constitutional: Yes: No Distress, Calm, Thin Neck: Yes: Supple Cardiovascular: Yes: Regular Rate and Rhythm, Murmur (2/6 SM) Respiratory: Yes: Regular, Diminished, On Nasal O2 Gastrointestinal: Yes: Normal Bowel Sounds, Soft Edema: No Labs: CBC, BMP 07/22/18 11:20 07/22/18 15:00 INR, PTT INR 0.97 (0.83-1.09) 07/19/18 12:47 - ....Imaging EKG: Report Reviewed (Tele: SR) Problem List - Problems (1) CAD (coronary artery disease) Code(s): I25.10 - ATHSCL HEART DISEASE OF [place] CORONARY ARTERY W/O ANG PCTRS Qualifiers: Coronary Disease-Associated Artery/Lesion type: [place] artery [place] vs. transplanted heart: [place] heart Associated angina: without angina Qualified Code(s): I25.10 - Atherosclerotic heart disease of [place] coronary artery without angina pectoris (2) ESRD (end stage renal disease) Code(s): N18.6 - END STAGE RENAL DISEASE (3) Fever Code(s): R50.9 - FEVER, UNSPECIFIED Qualifiers: Fever type: unspecified Qualified Code(s): R50.9 - Fever, unspecified (4) Hypoxia Code(s): R09.02 - HYPOXEMIA (5) S/P CABG (coronary artery bypass graft) Code(s): Z95.1 - PRESENCE OF AORTOCORONARY BYPASS GRAFT (6) Hypertensive cardiomyopathy Code(s): I11.9 - HYPERTENSIVE HEART DISEASE WITHOUT HEART FAILURE; I43 - CARDIOMYOPATHY IN DISEASES CLASSIFIED ELSEWHERE Qualifiers: Heart failure presence: with heart failure Qualified Code(s): I11.0 - Hypertensive heart disease with heart failure; I43 - Cardiomyopathy in diseases classified elsewhere (7) Acute on chronic diastolic heart failure Code(s): I50.33 - ACUTE ON CHRONIC DIASTOLIC (CONGESTIVE) HEART FAILURE (8) Pleural effusion due to CHF (congestive heart failure) Code(s): I50.9 - HEART FAILURE, UNSPECIFIED Assessment/Plan 07/20/2018 Echo: Mod BRITTANY, normal LV size and fxn, mod-severe MR, TR, mod MAC 07/20/[address]: Large right>small left effusion, RML mass vs consolidation 1. Acute hypoxic respiratory failure referable to 2. Acute on chronic diastolic failure with MR/TR and pleural effusions R>L post thoracentesis 3. ESRD on HD TTS 4. CAD s/p CABG, angina pectoris 5. HTN urgency improved 6. Fever, r/o sepsis 7. Type 2 DM 8. Hyperlipidemia 9. Anemia of CKD 10. Hyponatremia resolved 11. RML PNA, loculated effusion vs mass P:1. Volume removal via HD, wean FIO2 as tolerated 2. On empiric abx with f/u C&S and pleural fluid per ID, repeat chest CT several months 3. Continue Procardia XL 60 qd, ASA 325 qd, Lipitor 20 qhs, carvedilol 25 bid, catapres patch, hydralazine 25 tid with uptitration as tolerated, consider ARB if hyperkalemia not an issue 4. DVT and GI prophylaxis, d/c telemetry
[2018-07-24] MEDS ORDERED: SODIUM CHLORIDE 250 ML IV PRN (14:05)
--- NOTE | 2018-07-24 14:05 | PN ---
Progress Note, Physician History of Present Illness: Pt seen and examined at bedside. He is awake and alert. He denies shortness of breath. - Current Medication List Current Medications: Active Medications Acetaminophen (Tylenol -) 650 mg PO Q6H PRN PRN Reason: FEVER Last Admin: 07/20/18 02:32 Dose: 650 mg Aspirin (Ecotrin -) 325 mg PO DAILY [facility] Last Admin: 07/24/18 11:44 Dose: 325 mg Atorvastatin Calcium (Lipitor -) 20 mg PO HS [facility] Last Admin: 07/23/18 22:18 Dose: 20 mg Calcium Acetate (Phoslo -) 667 mg PO TIDCM [facility] Last Admin: 07/24/18 12:52 Dose: 667 mg Carvedilol (Coreg -) 25 mg PO BID [facility] Last Admin: 07/24/18 11:43 Dose: 25 mg Clonidine HCl (Catapres Tts Patch -) 0.2 mg TD Tu@2200 [facility] Last Admin: 07/20/18 02:31 Dose: 0.2 mg Docusate Sodium (Colace -) 100 mg PO BID [facility] Last Admin: 07/24/18 11:43 Dose: 100 mg Ergocalciferol (Drisdol -) 50,000 unit PO Olivier@1000 [facility] Last Admin: 07/24/18 11:43 Dose: 50,000 unit Folic Acid (Folic Acid -) 1 mg PO DAILY [facility] Last Admin: 07/24/18 11:44 Dose: 1 mg Heparin Sodium (Porcine) (Heparin -) 5,000 unit SQ BID [facility] Last Admin: 07/24/18 11:44 Dose: 5,000 unit Hydralazine HCl (Apresoline -) 25 mg PO TID [facility] Last Admin: 07/24/18 06:44 Dose: 25 mg Piperacillin Sod/Tazobactam (Sod 2.25 gm/ Dextrose) 100 mls @ 100 mls/hr IVPB Q8H-IV [facility]; Protocol Last Admin: 07/24/18 10:44 Dose: 100 mls/hr Nifedipine (Procardia Xl -) 60 mg PO DAILY [facility] Last Admin: 07/24/18 11:44 Dose: 60 mg Pantoprazole Sodium (Protonix -) 40 mg PO DAILY [facility] Last Admin: 07/24/18 11:44 Dose: 40 mg - Objective Vital Signs: Vital Signs Temperature 98 F 07/24/18 05:00 Pulse Rate 74 07/24/18 05:00 Respiratory Rate 20 07/24/18 05:00 Blood Pressure 169/79 07/24/18 05:00 O2 Sat by Pulse Oximetry (%) 93 L 07/23/18 21:00 Constitutional: Yes: Calm Eyes: Yes: Conjunctiva Clear HENT: Yes: Atraumatic Neck: Yes: Supple Cardiovascular: Yes: S1, S2 Respiratory: Yes: CTA Bilaterally Gastrointestinal: Yes: Soft Genitourinary: Yes: WNL Musculoskeletal: Yes: WNL Edema: No Integumentary: Yes: WNL Neurological: Yes: Oriented Psychiatric: Yes: Oriented Labs: CBC, BMP 07/22/18 11:20 07/22/18 15:00 INR, PTT INR 0.97 (0.83-1.09) 07/19/18 12:47 Problem List - Problems (1) ESRD (end stage renal disease) Code(s): N18.6 - END STAGE RENAL DISEASE (2) HTN (hypertension) Code(s): I10 - ESSENTIAL (PRIMARY) HYPERTENSION (3) CAD (coronary artery disease) Code(s): I25.10 - ATHSCL HEART DISEASE OF [place] CORONARY ARTERY W/O ANG PCTRS Qualifiers: Coronary Disease-Associated Artery/Lesion type: [place] artery [place] vs. transplanted heart: [place] heart Associated angina: without angina Qualified Code(s): I25.10 - Atherosclerotic heart disease of [place] coronary artery without angina pectoris (4) Hyponatremia Code(s): E87.1 - HYPO-OSMOLALITY AND HYPONATREMIA (5) Fever Code(s): R50.9 - FEVER, UNSPECIFIED Qualifiers: Fever type: unspecified Qualified Code(s): R50.9 - Fever, unspecified (6) Hypoxia Code(s): R09.02 - HYPOXEMIA Assessment/Plan Current Medications Generic Name Dose Route Start Last Admin Trade Name Freq PRN Reason Stop Dose Admin Acetaminophen 650 mg 07/19/18 20:47 07/20/18 02:32 Tylenol - PO 650 mg Q6H PRN Administration FEVER Aspirin 325 mg 07/20/18 10:00 07/24/18 11:44 Ecotrin - PO 325 mg DAILY [facility] Administration Atorvastatin Calcium 20 mg 07/19/18 22:00 07/23/18 22:18 Lipitor - PO 20 mg HS [facility] Administration Calcium Acetate 667 mg 07/20/18 08:00 07/24/18 12:52 Phoslo - PO 667 mg TIDCM [facility] Administration Carvedilol 25 mg 07/20/18 22:00 07/24/18 11:43 Coreg - PO 25 mg BID [facility] Administration Clonidine HCl 0.2 mg 07/19/18 22:00 07/20/18 02:31 Catapres Tts Patch - TD 0.2 mg Tu@2200 [facility] Administration Docusate Sodium 100 mg 07/19/18 22:00 07/24/18 11:43 Colace - PO 100 mg BID [facility] Administration Ergocalciferol 50,000 unit 07/24/18 10:00 07/24/18 11:43 Drisdol - PO 50,000 unit Olivier@1000 [facility] Administration Folic Acid 1 mg 07/20/18 10:00 07/24/18 11:44 Folic Acid - PO 1 mg DAILY [facility] Administration Heparin Sodium (Porcine) 5,000 unit 07/19/18 22:00 07/24/18 11:44 Heparin - SQ 5,000 unit BID [facility] Administration Hydralazine HCl 25 mg 07/19/18 22:00 07/24/18 06:44 Apresoline - PO 25 mg TID [facility] Administration Piperacillin Sod/Tazobactam 100 mls @ 100 mls/hr 07/22/18 02:00 07/24/18 10: 44 Sod 2.25 gm/ Dextrose IVPB 100 mls/hr Q8H-IV [facility] Administration Protocol Nifedipine 60 mg 07/20/18 10:15 07/24/18 11:44 Procardia Xl - PO 60 mg DAILY [facility] Administration Pantoprazole Sodium 40 mg 07/20/18 10:00 07/24/18 11:44 Protonix - PO 40 mg DAILY [facility] Administration Impression 1. ESRD 2. hyponatremia 3. PNA 4. sepsis 5. pleural effusion 6. CAD 7. hx CABG 8. DM 9. HLD 10. anemia 11. hypoxia Plan - HD tomorrow - cardio input appreciated - cont current meds - DO NOT HOLD BP MEDS BEFORE HD - will monitor and add ARB if possible - BP is stable - will follow pt Dr Siu
--- NOTE | 2018-07-24 14:34 | PN ---
Progress Note (short form) - Note Progress Note: PULMONARY States breathing is better. No chest pain. No fevers or chills. Vital Signs Period Temp Pulse Resp BP Sys/Chiang Pulse Ox Last 24 Hr 98 F-99.3 F 66-74 20-20 120-173/51-79 93 Gen: NAD at rest Heart: RRR Lung: right basilar rales Abd: soft, nontender Ext: no edema CBC, BMP 07/22/18 11:20 07/22/18 15:00 Active Medications Acetaminophen (Tylenol -) 650 mg PO Q6H PRN PRN Reason: FEVER Last Admin: 07/20/18 02:32 Dose: 650 mg Aspirin (Ecotrin -) 325 mg PO DAILY [facility] Last Admin: 07/24/18 11:44 Dose: 325 mg Atorvastatin Calcium (Lipitor -) 20 mg PO HS [facility] Last Admin: 07/23/18 22:18 Dose: 20 mg Calcium Acetate (Phoslo -) 667 mg PO TIDCM [facility] Last Admin: 07/24/18 12:52 Dose: 667 mg Carvedilol (Coreg -) 25 mg PO BID [facility] Last Admin: 07/24/18 11:43 Dose: 25 mg Clonidine HCl (Catapres Tts Patch -) 0.2 mg TD Tu@2200 [facility] Last Admin: 07/20/18 02:31 Dose: 0.2 mg Docusate Sodium (Colace -) 100 mg PO BID [facility] Last Admin: 07/24/18 11:43 Dose: 100 mg Ergocalciferol (Drisdol -) 50,000 unit PO Olivier@1000 [facility] Last Admin: 07/24/18 11:43 Dose: 50,000 unit Folic Acid (Folic Acid -) 1 mg PO DAILY [facility] Last Admin: 07/24/18 11:44 Dose: 1 mg Heparin Sodium (Porcine) (Heparin -) 5,000 unit SQ BID [facility] Last Admin: 07/24/18 11:44 Dose: 5,000 unit Hydralazine HCl (Apresoline -) 25 mg PO TID [facility] Last Admin: 07/24/18 06:44 Dose: 25 mg Piperacillin Sod/Tazobactam (Sod 2.25 gm/ Dextrose) 100 mls @ 100 mls/hr IVPB Q8H-IV [facility]; Protocol Last Admin: 07/24/18 10:44 Dose: 100 mls/hr Sodium Chloride (Normal Saline -) 250 mls @ 3,000 mls/hr IV PRN PRN PRN Reason: Hypotension during Dialysis Stop: 07/25/18 14:05 Nifedipine (Procardia Xl -) 60 mg PO DAILY [facility] Last Admin: 07/24/18 11:44 Dose: 60 mg Pantoprazole Sodium (Protonix -) 40 mg PO DAILY [facility] Last Admin: 07/24/18 11:44 Dose: 40 mg A/P Acute Hypoxic Respiratory Failure Acute on Chronic Diastolic Heart Failure Right Pleural Effusion s/p thoracentesis r/o Pneumonia Mitral Regurgitation ESRD on HD CAD s/p CABG HTN DM Hyperlipidemia - continue antibiotics - f/u pleural studies - HD per renal - BP control - O2 to keep SpO2 >90% - DVT prophylaxis
--- NOTE | 2018-07-24 15:29 | PN ---
Progress Note (short form) - Note Progress Note: comfortable afebrile no new issues Vital Signs Temp 98.1 F 07/24/18 14:00 Pulse 69 07/24/18 14:00 Resp 20 07/24/18 05:00 BP 198/87 07/24/18 14:00 Pulse Ox 93 L 07/23/18 21:00 Intake & Output 07/23/18 07/24/18 07/24/18 23:59 11:59 23:59 Intake Total 550 300 Output Total 0 Balance 550 300 Intake: IVPB 100 50 Oral 450 250 Output: Urine 0 Void 0 Other: Voiding Method Urinal Toilet Bowel Movement Yes Active Medications Acetaminophen (Tylenol -) 650 mg PO Q6H PRN PRN Reason: FEVER Last Admin: 07/20/18 02:32 Dose: 650 mg Aspirin (Ecotrin -) 325 mg PO DAILY [facility] Last Admin: 07/24/18 11:44 Dose: 325 mg Atorvastatin Calcium (Lipitor -) 20 mg PO HS [facility] Last Admin: 07/23/18 22:18 Dose: 20 mg Calcium Acetate (Phoslo -) 667 mg PO TIDCM [facility] Last Admin: 07/24/18 12:52 Dose: 667 mg Carvedilol (Coreg -) 25 mg PO BID [facility] Last Admin: 07/24/18 11:43 Dose: 25 mg Clonidine HCl (Catapres Tts Patch -) 0.2 mg TD Tu@2200 [facility] Last Admin: 07/20/18 02:31 Dose: 0.2 mg Docusate Sodium (Colace -) 100 mg PO BID [facility] Last Admin: 07/24/18 11:43 Dose: 100 mg Ergocalciferol (Drisdol -) 50,000 unit PO [email or web address]@1000 [facility] Last Admin: 07/24/18 11:43 Dose: 50,000 unit Folic Acid (Folic Acid -) 1 mg PO DAILY [facility] Last Admin: 07/24/18 11:44 Dose: 1 mg Heparin Sodium (Porcine) (Heparin -) 5,000 unit SQ BID [facility] Last Admin: 07/24/18 11:44 Dose: 5,000 unit Hydralazine HCl (Apresoline -) 25 mg PO TID [facility] Last Admin: 07/24/18 06:44 Dose: 25 mg Piperacillin Sod/Tazobactam (Sod 2.25 gm/ Dextrose) 100 mls @ 100 mls/hr IVPB Q8H-IV [facility]; Protocol Last Admin: 07/24/18 10:44 Dose: 100 mls/hr Sodium Chloride (Normal Saline -) 250 mls @ 3,000 mls/hr IV PRN PRN PRN Reason: Hypotension during Dialysis Stop: 07/25/18 14:05 Nifedipine (Procardia Xl -) 60 mg PO DAILY [facility] Last Admin: 07/24/18 11:44 Dose: 60 mg Pantoprazole Sodium (Protonix -) 40 mg PO DAILY [facility] Last Admin: 07/24/18 11:44 Dose: 40 mg CBC, BMP 07/22/18 11:20 07/22/18 15:00 Microbiology 07/19/18 12:47 Blood Culture - Final Blood - Peripheral Venous NO GROWTH AFTER 5 DAYS INCUBATION 07/19/18 12:47 Blood Culture - Final Blood - Peripheral Venous NO GROWTH AFTER 5 DAYS INCUBATION 07/21/18 12:40 Gram Stain - Final Pleural Fluid Body Fluid Culture - Final NO GROWTH OF AEROBIC ORGANISMS AFTER 48 HOURS INCUBATION Anaerobic Culture - Final NO ANAEROBES WERE ISOLATED Physical Examination Constitutional: Yes: No Distress, comfortable. Eyes: Yes: Conjunctiva Clear Neck: Yes: Supple, Other (No JVD) Cardiovascular: Yes: Regular Rate and Rhythm Respiratory: Yes: Diminished at bases Gastrointestinal: Yes: Soft/ non tender . bs + Edema: No Neurological: Yes: Alert (poor historian. Non focal exam) Assessment/Plan status post thoracocentesis stable D/c abx Await cytology Continue other medications f/u labs -- E[place] Will follow dialysis per renal daily oob - chair Problem List - Problems (1) CAD (coronary artery disease) Code(s): I25.10 - ATHSCL HEART DISEASE OF [place] CORONARY ARTERY W/O ANG PCTRS Qualifiers: Coronary Disease-Associated Artery/Lesion type: [place] artery [place] vs. transplanted heart: [place] heart Associated angina: without angina Qualified Code(s): I25.10 - Atherosclerotic heart disease of [place] coronary artery without angina pectoris (2) Fever Code(s): R50.9 - FEVER, UNSPECIFIED Qualifiers: Fever type: unspecified Qualified Code(s): R50.9 - Fever, unspecified (3) Hypertensive cardiomyopathy Code(s): I11.9 - HYPERTENSIVE HEART DISEASE WITHOUT HEART FAILURE; I43 - CARDIOMYOPATHY IN DISEASES CLASSIFIED ELSEWHERE Qualifiers: Heart failure presence: with heart failure Qualified Code(s): I11.0 - Hypertensive heart disease with heart failure; I43 - Cardiomyopathy in diseases classified elsewhere (4) Hypoxia Code(s): R09.02 - HYPOXEMIA
--- NOTE | 2018-07-24 17:01 | PN ---
Progress Note, Physician History of Present Illness: Pt is alert, afebrile. c/o weakness with ambulation but no other specific complaints. - Current Medication List Current Medications: Active Medications Acetaminophen (Tylenol -) 650 mg PO Q6H PRN PRN Reason: FEVER Last Admin: 07/20/18 02:32 Dose: 650 mg Aspirin (Ecotrin -) 325 mg PO DAILY [facility] Last Admin: 07/24/18 11:44 Dose: 325 mg Atorvastatin Calcium (Lipitor -) 20 mg PO HS [facility] Last Admin: 07/23/18 22:18 Dose: 20 mg Calcium Acetate (Phoslo -) 667 mg PO TIDCM [facility] Last Admin: 07/24/18 12:52 Dose: 667 mg Carvedilol (Coreg -) 25 mg PO BID [facility] Last Admin: 07/24/18 11:43 Dose: 25 mg Clonidine HCl (Catapres Tts Patch -) 0.2 mg TD Tu@2200 [facility] Last Admin: 07/20/18 02:31 Dose: 0.2 mg Docusate Sodium (Colace -) 100 mg PO BID [facility] Last Admin: 07/24/18 11:43 Dose: 100 mg Ergocalciferol (Drisdol -) 50,000 unit PO [email or web address]@1000 [facility] Last Admin: 07/24/18 11:43 Dose: 50,000 unit Folic Acid (Folic Acid -) 1 mg PO DAILY [facility] Last Admin: 07/24/18 11:44 Dose: 1 mg Heparin Sodium (Porcine) (Heparin -) 5,000 unit SQ BID [facility] Last Admin: 07/24/18 11:44 Dose: 5,000 unit Hydralazine HCl (Apresoline -) 25 mg PO TID [facility] Last Admin: 07/24/18 16:17 Dose: 25 mg Sodium Chloride (Normal Saline -) 250 mls @ 3,000 mls/hr IV PRN PRN PRN Reason: Hypotension during Dialysis Stop: 07/25/18 14:05 Nifedipine (Procardia Xl -) 60 mg PO DAILY [facility] Last Admin: 07/24/18 11:44 Dose: 60 mg Pantoprazole Sodium (Protonix -) 40 mg PO DAILY [facility] Last Admin: 07/24/18 11:44 Dose: 40 mg - Objective Vital Signs: Vital Signs Temperature 98.1 F 07/24/18 14:00 Pulse Rate 69 07/24/18 14:00 Respiratory Rate 20 07/24/18 05:00 Blood Pressure 198/87 07/24/18 14:00 O2 Sat by Pulse Oximetry (%) 93 L 07/23/18 21:00 Constitutional: Yes: No Distress, Calm Cardiovascular: Yes: Regular Rate and Rhythm Respiratory: Yes: Other (slightly diminished breath sounds Rt base) Gastrointestinal: Yes: Normal Bowel Sounds, Soft Genitourinary: Yes: WNL Extremities: Yes: WNL Neurological: Yes: Alert, Oriented Labs: CBC, BMP 07/22/18 11:20 07/22/18 15:00 INR, PTT INR 0.97 (0.83-1.09) 07/19/18 12:47 Problem List - Problems (1) Acute on chronic diastolic heart failure Code(s): I50.33 - ACUTE ON CHRONIC DIASTOLIC (CONGESTIVE) HEART FAILURE (2) CAD (coronary artery disease) Code(s): I25.10 - ATHSCL HEART DISEASE OF [place] CORONARY ARTERY W/O ANG PCTRS Qualifiers: Coronary Disease-Associated Artery/Lesion type: [place] artery [place] vs. transplanted heart: [place] heart Associated angina: without angina Qualified Code(s): I25.10 - Atherosclerotic heart disease of [place] coronary artery without angina pectoris (3) ESRD (end stage renal disease) Code(s): N18.6 - END STAGE RENAL DISEASE (4) Fever Code(s): R50.9 - FEVER, UNSPECIFIED Qualifiers: Fever type: unspecified Qualified Code(s): R50.9 - Fever, unspecified (5) HTN (hypertension) Code(s): I10 - ESSENTIAL (PRIMARY) HYPERTENSION (6) Hypertensive cardiomyopathy Code(s): I11.9 - HYPERTENSIVE HEART DISEASE WITHOUT HEART FAILURE; I43 - CARDIOMYOPATHY IN DISEASES CLASSIFIED ELSEWHERE Qualifiers: Heart failure presence: with heart failure Qualified Code(s): I11.0 - Hypertensive heart disease with heart failure; I43 - Cardiomyopathy in diseases classified elsewhere (7) Hypoxia Code(s): R09.02 - HYPOXEMIA (8) Pleural effusion Code(s): J90 - PLEURAL EFFUSION, NOT ELSEWHERE CLASSIFIED (9) S/P CABG (coronary artery bypass graft) Code(s): Z95.1 - PRESENCE OF AORTOCORONARY BYPASS GRAFT Assessment/Plan 63 y.o. male with PMH of CAD s/p CABG, CHF, ESRD on HD, DM presenting with fever , hypoxia Pleural Effusion s/p thoracentesis Eosinophilia Acute on Chronic CHF Hypoxemia Fever ESRD on HD DM CAD -- pleural fluid Cx no growth 48h, blood cultures neg -- afebrile now -- f/u workup for eosinophilia, repeat cbc/diff continue monitor vitals closely
[2018-07-24] MEDS: ATORVASTATIN CA 20 MG TABLET (FP) PO SCH (21:13)
[2018-07-25] MEDS: hydrALAZINE HCL 25 MG TABLET (FP) PO SCH ×3 (06:00→21:51)
[2018-07-25 07:14] LABS: BASO % 1.1 % (0-2.0); EOS % 19.4 % (0-4.5); HEMATOCRIT 32.7 % (35.4-49); HEMOGLOBIN 10.8 GM/dL (11.7-16.9); LYMPH % 24.8 % (8-40); MCH 28.1 pg (25.7-33.7); MCHC 33.2 g/dl (32.0-35.9); MEAN CELL VOLUME 84.7 fl (80-96); MEAN PLT VOLUME 8.4 fl (7.5-11.1); MONO % 11.7 % (3.8-10.2); PLATELET COUNT 190 K/MM3 (134-434); RBC 3.86 M/mm3 (4.00-5.60); RDW 16.7 % (11.9-15.9); WHITE BLOOD COUNT 3.8 K/mm3 (4.0-10.0)
--- NOTE | 2018-07-25 09:31 | PN ---
Progress Note, Physician History of Present Illness: PULMONARY ALERT ,NO DISTRESS,-CP,-SOB - Current Medication List Current Medications: Active Medications Acetaminophen (Tylenol -) 650 mg PO Q6H PRN PRN Reason: FEVER Last Admin: 07/20/18 02:32 Dose: 650 mg Aspirin (Ecotrin -) 325 mg PO DAILY [facility] Last Admin: 07/24/18 11:44 Dose: 325 mg Atorvastatin Calcium (Lipitor -) 20 mg PO HS [facility] Last Admin: 07/24/18 21:13 Dose: 20 mg Calcium Acetate (Phoslo -) 667 mg PO TIDCM [facility] Last Admin: 07/24/18 17:51 Dose: 667 mg Carvedilol (Coreg -) 25 mg PO BID [facility] Last Admin: 07/24/18 21:13 Dose: 25 mg Clonidine HCl (Catapres Tts Patch -) 0.2 mg TD Tu@2200 [facility] Last Admin: 07/20/18 02:31 Dose: 0.2 mg Docusate Sodium (Colace -) 100 mg PO BID [facility] Last Admin: 07/24/18 21:13 Dose: 100 mg Ergocalciferol (Drisdol -) 50,000 unit PO [email or web address]@1000 [facility] Last Admin: 07/24/18 11:43 Dose: 50,000 unit Folic Acid (Folic Acid -) 1 mg PO DAILY [facility] Last Admin: 07/24/18 11:44 Dose: 1 mg Heparin Sodium (Porcine) (Heparin -) 5,000 unit SQ BID [facility] Last Admin: 07/24/18 21:12 Dose: 5,000 unit Hydralazine HCl (Apresoline -) 25 mg PO TID [facility] Last Admin: 07/25/18 06:00 Dose: 25 mg Sodium Chloride (Normal Saline -) 250 mls @ 3,000 mls/hr IV PRN PRN PRN Reason: Hypotension during Dialysis Stop: 07/25/18 14:05 Nifedipine (Procardia Xl -) 60 mg PO DAILY [facility] Last Admin: 07/24/18 11:44 Dose: 60 mg Pantoprazole Sodium (Protonix -) 40 mg PO DAILY [facility] Last Admin: 07/24/18 11:44 Dose: 40 mg - Objective Vital Signs: Vital Signs Temperature 97.9 F 07/25/18 05:00 Pulse Rate 69 07/25/18 05:00 Respiratory Rate 18 07/25/18 05:00 Blood Pressure 199/88 07/25/18 05:00 O2 Sat by Pulse Oximetry (%) 98 07/24/18 21:00 Constitutional: Yes: Well Nourished, Calm Eyes: Yes: WNL HENT: Yes: WNL Neck: Yes: WNL Cardiovascular: Yes: Regular Rate and Rhythm, S1, S2 Respiratory: Yes: Diminished Gastrointestinal: Yes: Normal Bowel Sounds, Soft Edema: No Labs: CBC, BMP 07/25/18 05:30 07/22/18 15:00 INR, PTT INR 0.97 (0.83-1.09) 07/19/18 12:47 Problem List - Problems (1) Pleural effusion Code(s): J90 - PLEURAL EFFUSION, NOT ELSEWHERE CLASSIFIED (2) Acute on chronic diastolic heart failure Code(s): I50.33 - ACUTE ON CHRONIC DIASTOLIC (CONGESTIVE) HEART FAILURE (3) CAD (coronary artery disease) Code(s): I25.10 - ATHSCL HEART DISEASE OF [place] CORONARY ARTERY W/O ANG PCTRS Qualifiers: Coronary Disease-Associated Artery/Lesion type: [place] artery [place] vs. transplanted heart: [place] heart Associated angina: without angina Qualified Code(s): I25.10 - Atherosclerotic heart disease of [place] coronary artery without angina pectoris (4) ESRD (end stage renal disease) Code(s): N18.6 - END STAGE RENAL DISEASE (5) Fever Code(s): R50.9 - FEVER, UNSPECIFIED Qualifiers: Fever type: unspecified Qualified Code(s): R50.9 - Fever, unspecified (6) HTN (hypertension) Code(s): I10 - ESSENTIAL (PRIMARY) HYPERTENSION (7) Hypertensive cardiomyopathy Code(s): I11.9 - HYPERTENSIVE HEART DISEASE WITHOUT HEART FAILURE; I43 - CARDIOMYOPATHY IN DISEASES CLASSIFIED ELSEWHERE Qualifiers: Heart failure presence: with heart failure Qualified Code(s): I11.0 - Hypertensive heart disease with heart failure; I43 - Cardiomyopathy in diseases classified elsewhere (8) S/P CABG (coronary artery bypass graft) Code(s): Z95.1 - PRESENCE OF AORTOCORONARY BYPASS GRAFT Assessment/Plan IMP ACUTE HYPOXEMIC RESPIRATORY FAILURE IMPROVED ACUTE ON CHRONIC CHF FEVER ? PNEUMONIA LOCULATED R PLEURAL EFFUSION TRANSUDATE,CYTOLOGY NEGATIVE ASHD S/P CABG ESRD ON HD EOSINOPHILIA HYPERTENSIVE URGENCY ANEMIA PLAN O2 HD PER RENAL TITRATE BP MEDS MONITOR LYTES,CBC,EOSINOPHIL CT CONSIDER HEME EVALUATION FOR EOSINOPHILIA DR MELENDREZ
[2018-07-25] MEDS: CARVEDILOL 25 MG TABLET (FP) PO SCH ×2 (09:44→21:51)
[2018-07-25] MEDS: CALCIUM ACETATE 667 MG CAPSULE (FP) PO SCH ×3 (09:44→17:29)
[2018-07-25] MEDS: PANTOPRAZOLE 40 MG TABLET (FP) PO SCH (09:45)
[2018-07-25] MEDS: ASPIRIN 325 MG ENTERIC COATED TABLET (FP) PO SCH (09:45)
[2018-07-25] MEDS: DOCUSATE SODIUM 100 MG CAPSULE (FP) PO SCH ×2 (09:45→21:51)
[2018-07-25] MEDS: HEPARIN NA (PORCINE) 5,000 UNITS/ML 1ML VIAL SQ SCH ×2 (09:45→21:51)
[2018-07-25] MEDS: NIFEdipine E.R 60 MG TABLET (UD) PO SCH (09:46)
[2018-07-25] MEDS: FOLIC ACID 1 MG TABLET (FP) PO SCH (09:47)
--- NOTE | 2018-07-25 12:13 | PN ---
Progress Note, Physician History of Present Illness: Pt seen and examined at bedside. He is awake and alert. He denies shortness of breath. - Current Medication List Current Medications: Active Medications Acetaminophen (Tylenol -) 650 mg PO Q6H PRN PRN Reason: FEVER Last Admin: 07/20/18 02:32 Dose: 650 mg Aspirin (Ecotrin -) 325 mg PO DAILY [facility] Last Admin: 07/25/18 09:45 Dose: 325 mg Atorvastatin Calcium (Lipitor -) 20 mg PO HS [facility] Last Admin: 07/24/18 21:13 Dose: 20 mg Calcium Acetate (Phoslo -) 667 mg PO TIDCM [facility] Last Admin: 07/25/18 09:44 Dose: 667 mg Carvedilol (Coreg -) 25 mg PO BID [facility] Last Admin: 07/25/18 09:44 Dose: 25 mg Clonidine HCl (Catapres Tts Patch -) 0.2 mg TD Tu@2200 [facility] Last Admin: 07/20/18 02:31 Dose: 0.2 mg Docusate Sodium (Colace -) 100 mg PO BID [facility] Last Admin: 07/25/18 09:45 Dose: 100 mg Ergocalciferol (Drisdol -) 50,000 unit PO [email or web address]@1000 [facility] Last Admin: 07/24/18 11:43 Dose: 50,000 unit Folic Acid (Folic Acid -) 1 mg PO DAILY [facility] Last Admin: 07/25/18 09:47 Dose: 1 mg Heparin Sodium (Porcine) (Heparin -) 5,000 unit SQ BID [facility] Last Admin: 07/25/18 09:45 Dose: 5,000 unit Hydralazine HCl (Apresoline -) 25 mg PO TID [facility] Last Admin: 07/25/18 06:00 Dose: 25 mg Sodium Chloride (Normal Saline -) 250 mls @ 3,000 mls/hr IV PRN PRN PRN Reason: Hypotension during Dialysis Stop: 07/25/18 14:05 Nifedipine (Procardia Xl -) 60 mg PO DAILY [facility] Last Admin: 07/25/18 09:46 Dose: 60 mg Pantoprazole Sodium (Protonix -) 40 mg PO DAILY [facility] Last Admin: 07/25/18 09:45 Dose: 40 mg - Objective Vital Signs: Vital Signs Temperature 98 F 07/25/18 09:00 Pulse Rate 70 07/25/18 09:00 Respiratory Rate 18 09/03/18 09:00 Blood Pressure 160/90 07/25/18 09:00 O2 Sat by Pulse Oximetry (%) 97 07/25/18 09:00 Constitutional: Yes: Calm Eyes: Yes: Conjunctiva Clear HENT: Yes: Atraumatic Neck: Yes: Supple Cardiovascular: Yes: S1, S2 Respiratory: Yes: CTA Bilaterally Gastrointestinal: Yes: Normal Bowel Sounds, Soft Genitourinary: Yes: WNL Musculoskeletal: Yes: WNL Edema: No Neurological: Yes: Oriented Psychiatric: Yes: Oriented Labs: CBC, BMP 07/25/18 05:30 07/22/18 15:00 INR, PTT INR 0.97 (0.83-1.09) 07/19/18 12:47 Problem List - Problems (1) ESRD (end stage renal disease) Code(s): N18.6 - END STAGE RENAL DISEASE (2) HTN (hypertension) Code(s): I10 - ESSENTIAL (PRIMARY) HYPERTENSION (3) CAD (coronary artery disease) Code(s): I25.10 - ATHSCL HEART DISEASE OF [place] CORONARY ARTERY W/O ANG PCTRS Qualifiers: Coronary Disease-Associated Artery/Lesion type: [place] artery [place] vs. transplanted heart: [place] heart Associated angina: without angina Qualified Code(s): I25.10 - Atherosclerotic heart disease of [place] coronary artery without angina pectoris (4) Hyponatremia Code(s): E87.1 - HYPO-OSMOLALITY AND HYPONATREMIA (5) Fever Code(s): R50.9 - FEVER, UNSPECIFIED Qualifiers: Fever type: unspecified Qualified Code(s): R50.9 - Fever, unspecified (6) Hypoxia Code(s): R09.02 - HYPOXEMIA Assessment/Plan Current Medications Generic Name Dose Route Start Last Admin Trade Name Freq PRN Reason Stop Dose Admin Acetaminophen 650 mg 07/19/18 20:47 07/20/18 02:32 Tylenol - PO 650 mg Q6H PRN Administration FEVER Aspirin 325 mg 07/20/18 10:00 07/25/18 09:45 Ecotrin - PO 325 mg DAILY [facility] Administration Atorvastatin Calcium 20 mg 07/19/18 22:00 07/24/18 21:13 Lipitor - PO 20 mg HS [facility] Administration Calcium Acetate 667 mg 07/20/18 08:00 07/25/18 09:44 Phoslo - PO 667 mg TIDCM [facility] Administration Carvedilol 25 mg 07/20/18 22:00 07/25/18 09:44 Coreg - PO 25 mg BID [facility] Administration Clonidine HCl 0.2 mg 07/19/18 22:00 07/20/18 02:31 Catapres Tts Patch - TD 0.2 mg Tu@2200 [facility] Administration Docusate Sodium 100 mg 07/19/18 22:00 07/25/18 09:45 Colace - PO 100 mg BID [facility] Administration Ergocalciferol 50,000 unit 07/24/18 10:00 07/24/18 11:43 Drisdol - PO 50,000 unit [email or web address]@1000 [facility] Administration Folic Acid 1 mg 07/20/18 10:00 07/25/18 09:47 Folic Acid - PO 1 mg DAILY [facility] Administration Heparin Sodium (Porcine) 5,000 unit 07/19/18 22:00 07/25/18 09:45 Heparin - SQ 5,000 unit BID [facility] Administration Hydralazine HCl 25 mg 07/19/18 22:00 07/25/18 06:00 Apresoline - PO 25 mg TID [facility] Administration Sodium Chloride 250 mls @ 3,000 mls/hr 07/24/18 14:05 Normal Saline - IV 07/25/18 14:05 PRN PRN Hypotension during Dialysis Nifedipine 60 mg 07/20/18 10:15 07/25/18 09:46 Procardia Xl - PO 60 mg DAILY [facility] Administration Pantoprazole Sodium 40 mg 07/20/18 10:00 07/25/18 09:45 Protonix - PO 40 mg DAILY [facility] Administration Selected Entries 07/25/18 09:00 Blood Pressure 160/90 Impression 1. ESRD 2. hyponatremia 3. PNA 4. sepsis 5. pleural effusion 6. CAD 7. hx CABG 8. DM 9. HLD 10. anemia 11. hypoxia Plan - give all AM meds for BP - HD today - will monitor and add ARB if possible - cont to monitor blood pressure - will follow pt Dr Siu
--- NOTE | 2018-07-25 12:16 | PN ---
Progress Note, Physician History of Present Illness: Afebrile, dyspnea and BP control improved, post right thoracentesis, fluid cultures negative so far. - Current Medication List Current Medications: Active Medications Acetaminophen (Tylenol -) 650 mg PO Q6H PRN PRN Reason: FEVER Last Admin: 07/20/18 02:32 Dose: 650 mg Aspirin (Ecotrin -) 325 mg PO DAILY [facility] Last Admin: 07/25/18 09:45 Dose: 325 mg Atorvastatin Calcium (Lipitor -) 20 mg PO HS [facility] Last Admin: 07/24/18 21:13 Dose: 20 mg Calcium Acetate (Phoslo -) 667 mg PO TIDCM [facility] Last Admin: 07/25/18 09:44 Dose: 667 mg Carvedilol (Coreg -) 25 mg PO BID [facility] Last Admin: 07/25/18 09:44 Dose: 25 mg Clonidine HCl (Catapres Tts Patch -) 0.2 mg TD Tu@2200 [facility] Last Admin: 07/20/18 02:31 Dose: 0.2 mg Docusate Sodium (Colace -) 100 mg PO BID [facility] Last Admin: 07/25/18 09:45 Dose: 100 mg Ergocalciferol (Drisdol -) 50,000 unit PO Olivier@1000 [facility] Last Admin: 07/24/18 11:43 Dose: 50,000 unit Folic Acid (Folic Acid -) 1 mg PO DAILY [facility] Last Admin: 07/25/18 09:47 Dose: 1 mg Heparin Sodium (Porcine) (Heparin -) 5,000 unit SQ BID [facility] Last Admin: 07/25/18 09:45 Dose: 5,000 unit Hydralazine HCl (Apresoline -) 25 mg PO TID [facility] Last Admin: 07/25/18 06:00 Dose: 25 mg Sodium Chloride (Normal Saline -) 250 mls @ 3,000 mls/hr IV PRN PRN PRN Reason: Hypotension during Dialysis Stop: 07/25/18 14:05 Nifedipine (Procardia Xl -) 60 mg PO DAILY [facility] Last Admin: 07/25/18 09:46 Dose: 60 mg Pantoprazole Sodium (Protonix -) 40 mg PO DAILY [facility] Last Admin: 07/25/18 09:45 Dose: 40 mg - Objective Vital Signs: Vital Signs Temperature 98 F 07/25/18 09:00 Pulse Rate 70 07/25/18 09:00 Respiratory Rate 18 07/25/18 09:00 Blood Pressure 160/90 07/25/18 09:00 O2 Sat by Pulse Oximetry (%) 97 07/25/18 09:00 Constitutional: Yes: No Distress, Calm, Thin Neck: Yes: Supple Cardiovascular: Yes: Regular Rate and Rhythm Respiratory: Yes: Regular, Diminished Gastrointestinal: Yes: Normal Bowel Sounds, Soft Edema: No Labs: CBC, BMP 07/25/18 05:30 07/22/18 15:00 INR, PTT INR 0.97 (0.83-1.09) 07/19/18 12:47 Problem List - Problems (1) CAD (coronary artery disease) Code(s): I25.10 - ATHSCL HEART DISEASE OF [place] CORONARY ARTERY W/O ANG PCTRS Qualifiers: Coronary Disease-Associated Artery/Lesion type: [place] artery [place] vs. transplanted heart: [place] heart Associated angina: without angina Qualified Code(s): I25.10 - Atherosclerotic heart disease of [place] coronary artery without angina pectoris (2) ESRD (end stage renal disease) Code(s): N18.6 - END STAGE RENAL DISEASE (3) Fever Code(s): R50.9 - FEVER, UNSPECIFIED Qualifiers: Fever type: unspecified Qualified Code(s): R50.9 - Fever, unspecified (4) Hypoxia Code(s): R09.02 - HYPOXEMIA (5) S/P CABG (coronary artery bypass graft) Code(s): Z95.1 - PRESENCE OF AORTOCORONARY BYPASS GRAFT (6) Hypertensive cardiomyopathy Code(s): I11.9 - HYPERTENSIVE HEART DISEASE WITHOUT HEART FAILURE; I43 - CARDIOMYOPATHY IN DISEASES CLASSIFIED ELSEWHERE Qualifiers: Heart failure presence: with heart failure Qualified Code(s): I11.0 - Hypertensive heart disease with heart failure; I43 - Cardiomyopathy in diseases classified elsewhere (7) Acute on chronic diastolic heart failure Code(s): I50.33 - ACUTE ON CHRONIC DIASTOLIC (CONGESTIVE) HEART FAILURE (8) Pleural effusion due to CHF (congestive heart failure) Code(s): I50.9 - HEART FAILURE, UNSPECIFIED (9) Eosinophilia Code(s): D72.1 - EOSINOPHILIA Assessment/Plan 07/20/2018 Echo: Mod BRITTANY, normal LV size and fxn, mod-severe MR, TR, mod MAC 07/20/[address]: Large right>small left effusion, RML mass vs consolidation 1. Acute hypoxic respiratory failure referable to 2. Acute on chronic diastolic failure with MR/TR and pleural effusions R>L post thoracentesis 3. ESRD on HD TTS 4. CAD s/p CABG, angina pectoris 5. HTN urgency 6. Fever, r/o sepsis 7. Type 2 DM 8. Hyperlipidemia 9. Anemia of CKD 10. Hyponatremia resolved 11. RML PNA, loculated effusion vs mass 12. Eosinophilia P:1. Volume removal via HD, wean FIO2 as tolerated 2. Completed empiric abx course per ID, repeat chest CT several months 3. Increase Procardia XL 90 qd, ASA 325 qd, Lipitor 20 qhs, carvedilol 25 bid, catapres patch, hydralazine 25 tid with uptitration as tolerated, consider ARB if hyperkalemia not an issue 4. DVT and GI prophylaxis, d/c telemetry
--- NOTE | 2018-07-25 12:25 | PN ---
Progress Note (short form) - Note Progress Note: Comfortable Being Dialized denies pain. no sob. Vital Signs Temp 98 F 07/25/18 09:00 Pulse 70 07/25/18 09:00 Resp 18 07/25/18 09:00 BP 160/90 07/25/18 09:00 Pulse Ox 97 07/25/18 09:00 Intake & Output 07/24/18 07/25/18 07/25/18 23:59 11:59 23:59 Intake Total 350 50 Balance 350 50 Weight 134 lb 6.4 oz Intake: IVPB 100 Oral 250 50 Other: Voiding Method Urinal Urinal Weight Measurement Method Standing Scale Active Medications Acetaminophen (Tylenol -) 650 mg PO Q6H PRN PRN Reason: FEVER Last Admin: 07/20/18 02:32 Dose: 650 mg Aspirin (Ecotrin -) 325 mg PO DAILY [facility] Last Admin: 07/25/18 09:45 Dose: 325 mg Atorvastatin Calcium (Lipitor -) 20 mg PO HS [facility] Last Admin: 07/24/18 21:13 Dose: 20 mg Calcium Acetate (Phoslo -) 667 mg PO TIDCM [facility] Last Admin: 07/25/18 12:21 Dose: 667 mg Carvedilol (Coreg -) 25 mg PO BID [facility] Last Admin: 07/25/18 09:44 Dose: 25 mg Clonidine HCl (Catapres Tts Patch -) 0.2 mg TD Tu@2200 [facility] Last Admin: 07/20/18 02:31 Dose: 0.2 mg Docusate Sodium (Colace -) 100 mg PO BID [facility] Last Admin: 07/25/18 09:45 Dose: 100 mg Ergocalciferol (Drisdol -) 50,000 unit PO Olivier@1000 [facility] Last Admin: 07/24/18 11:43 Dose: 50,000 unit Folic Acid (Folic Acid -) 1 mg PO DAILY [facility] Last Admin: 07/25/18 09:47 Dose: 1 mg Heparin Sodium (Porcine) (Heparin -) 5,000 unit SQ BID [facility] Last Admin: 07/25/18 09:45 Dose: 5,000 unit Hydralazine HCl (Apresoline -) 25 mg PO TID [facility] Last Admin: 07/25/18 06:00 Dose: 25 mg Sodium Chloride (Normal Saline -) 250 mls @ 3,000 mls/hr IV PRN PRN PRN Reason: Hypotension during Dialysis Stop: 07/25/18 14:05 Nifedipine (Procardia Xl -) 60 mg PO DAILY [facility] Last Admin: 07/25/18 09:46 Dose: 60 mg Pantoprazole Sodium (Protonix -) 40 mg PO DAILY [facility] Last Admin: 07/25/18 09:45 Dose: 40 mg CBC, BMP 07/25/18 05:30 07/22/18 15:00 Microbiology 07/21/18 12:40 AFB Smear Concentration - Final Pleural Fluid Mycobacterial Culture - Preliminary 07/19/18 12:47 Blood Culture - Final Blood - Peripheral Venous NO GROWTH AFTER 5 DAYS INCUBATION 07/19/18 12:47 Blood Culture - Final Blood - Peripheral Venous NO GROWTH AFTER 5 DAYS INCUBATION Physical Examination Constitutional: Yes: No Distress, comfortable. Eyes: Yes: Conjunctiva Clear Neck: Yes: Supple, Other (No JVD) Cardiovascular: Yes: Regular Rate and Rhythm Respiratory: Yes: Diminished at bases Gastrointestinal: Yes: Soft/ non tender . bs + Edema: No Neurological: Yes: Alert (poor historian. Non focal exam) Assessment/Plan status post thoracocentesis stable off antibiotics cytology-- ve Continue other medications Will follow dialysis per renal daily oob - chair Esonophila better-- Discussed with i/d also Consult Hematology also D/c planning Anticipate tomorrow Problem List - Problems (1) CAD (coronary artery disease) Code(s): I25.10 - ATHSCL HEART DISEASE OF [place] CORONARY ARTERY W/O ANG PCTRS Qualifiers: Coronary Disease-Associated Artery/Lesion type: [place] artery [place] vs. transplanted heart: [place] heart Associated angina: without angina Qualified Code(s): I25.10 - Atherosclerotic heart disease of [place] coronary artery without angina pectoris (2) Fever Code(s): R50.9 - FEVER, UNSPECIFIED Qualifiers: Fever type: unspecified Qualified Code(s): R50.9 - Fever, unspecified (3) Hypertensive cardiomyopathy Code(s): I11.9 - HYPERTENSIVE HEART DISEASE WITHOUT HEART FAILURE; I43 - CARDIOMYOPATHY IN DISEASES CLASSIFIED ELSEWHERE Qualifiers: Heart failure presence: with heart failure Qualified Code(s): I11.0 - Hypertensive heart disease with heart failure; I43 - Cardiomyopathy in diseases classified elsewhere (4) Hypoxia Code(s): R09.02 - HYPOXEMIA
--- NOTE | 2018-07-25 12:37 | PN ---
Progress Note, Physician History of Present Illness: Pt is alert, afebrile. Denies shortness of breath. No specific complaints made. Currently receiving HD. - Current Medication List Current Medications: Active Medications Acetaminophen (Tylenol -) 650 mg PO Q6H PRN PRN Reason: FEVER Last Admin: 07/20/18 02:32 Dose: 650 mg Aspirin (Ecotrin -) 325 mg PO DAILY [facility] Last Admin: 07/25/18 09:45 Dose: 325 mg Atorvastatin Calcium (Lipitor -) 20 mg PO HS [facility] Last Admin: 07/24/18 21:13 Dose: 20 mg Calcium Acetate (Phoslo -) 667 mg PO TIDCM [facility] Last Admin: 07/25/18 12:21 Dose: 667 mg Carvedilol (Coreg -) 25 mg PO BID [facility] Last Admin: 07/25/18 09:44 Dose: 25 mg Clonidine HCl (Catapres Tts Patch -) 0.2 mg TD Tu@2200 [facility] Last Admin: 07/20/18 02:31 Dose: 0.2 mg Docusate Sodium (Colace -) 100 mg PO BID [facility] Last Admin: 07/25/18 09:45 Dose: 100 mg Ergocalciferol (Drisdol -) 50,000 unit PO Olivier@1000 [facility] Last Admin: 07/24/18 11:43 Dose: 50,000 unit Folic Acid (Folic Acid -) 1 mg PO DAILY [facility] Last Admin: 07/25/18 09:47 Dose: 1 mg Heparin Sodium (Porcine) (Heparin -) 5,000 unit SQ BID [facility] Last Admin: 07/25/18 09:45 Dose: 5,000 unit Hydralazine HCl (Apresoline -) 25 mg PO TID [facility] Last Admin: 07/25/18 06:00 Dose: 25 mg Sodium Chloride (Normal Saline -) 250 mls @ 3,000 mls/hr IV PRN PRN PRN Reason: Hypotension during Dialysis Stop: 07/25/18 14:05 Nifedipine (Procardia Xl -) 60 mg PO DAILY [facility] Last Admin: 07/25/18 09:46 Dose: 60 mg Pantoprazole Sodium (Protonix -) 40 mg PO DAILY [facility] Last Admin: 07/25/18 09:45 Dose: 40 mg - Objective Vital Signs: Vital Signs Temperature 98 F 07/25/18 09:00 Pulse Rate 70 07/25/18 09:00 Respiratory Rate 18 07/25/18 09:00 Blood Pressure 160/90 07/25/18 09:00 O2 Sat by Pulse Oximetry (%) 97 07/25/18 09:00 Constitutional: Yes: No Distress, Calm Cardiovascular: Yes: Regular Rate and Rhythm Respiratory: Yes: Regular Gastrointestinal: Yes: Normal Bowel Sounds, Soft Extremities: Yes: WNL Neurological: Yes: Alert Labs: CBC, BMP 07/25/18 05:30 07/22/18 15:00 INR, PTT INR 0.97 (0.83-1.09) 07/19/18 12:47 CBC WBC 3.8 K/mm3 (4.0-10.0) L 07/25/18 05:30 RBC 3.86 M/mm3 (4.00-5.60) L 07/25/18 05:30 Hgb 10.8 GM/dL (11.7-16.9) L 07/25/18 05:30 Hct 32.7 % (35.4-49) L 07/25/18 05:30 MCV 84.7 fl (80-96) 07/25/18 05:30 MCH 28.1 pg (25.7-33.7) 07/25/18 05:30 MCHC 33.2 g/dl (32.0-35.9) 07/25/18 05:30 RDW 16.7 % (11.9-15.9) H 07/25/18 05:30 Plt Count 190 K/MM3 (134-434) 07/25/18 05:30 MPV 8.4 fl (7.5-11.1) 07/25/18 05:30 Absolute Neuts (auto) 1.6 K/mm3 (1.5-8.0) 07/25/18 05:30 Neutrophils % 43.0 % (42.8-82.8) 07/25/18 05:30 Neutrophils % (Manual) 43.0 % (42.8-82.8) 07/22/18 06:28 Band Neutrophils % 0.0 % 07/22/18 06:28 Lymphocytes % 24.8 % (8-40) D 07/25/18 05:30 Lymphocytes % (Manual) 19.0 % (8-40) D 07/22/18 06:28 Monocytes % 11.7 % (3.8-10.2) H 07/25/18 05:30 Monocytes % (Manual) 8 % (3.8-10.2) 07/22/18 06:28 Eosinophils % 19.4 % (0-4.5) H 07/25/18 05:30 Eosinophils % (Manual) 26.0 % (0-4.5) H 07/22/18 06:28 Basophils % 1.1 % (0-2.0) 07/25/18 05:30 Basophils % (Manual) 1.0 % (0-2.0) 07/22/18 06:28 Myelocytes % (Man) 0 % (0-2) 07/22/18 06:28 Promyelocytes % (Man) 0 % (0-2) 07/22/18 06:28 Blast Cells % (Manual) 0 % (0-0) 07/22/18 06:28 Nucleated RBC % 0 % (0-0) 07/25/18 05:30 Metamyelocytes 0 % (0-2) 07/22/18 06:28 Hypochromia 0 07/22/18 06:28 Platelet Estimate Normal 07/22/18 06:28 Polychromasia 1+ 07/22/18 06:28 Poikilocytosis 0 07/22/18 06:28 Basophilic Stippling 1+ 07/20/18 06:30 Anisocytosis 1+ 07/22/18 06:28 Microcytosis 1+ 07/22/18 06:28 Macrocytosis 0 07/22/18 06:28 Problem List - Problems (1) Acute on chronic diastolic heart failure Code(s): I50.33 - ACUTE ON CHRONIC DIASTOLIC (CONGESTIVE) HEART FAILURE (2) CAD (coronary artery disease) Code(s): I25.10 - ATHSCL HEART DISEASE OF [place] CORONARY ARTERY W/O ANG PCTRS Qualifiers: Coronary Disease-Associated Artery/Lesion type: [place] artery [place] vs. transplanted heart: [place] heart Associated angina: without angina Qualified Code(s): I25.10 - Atherosclerotic heart disease of [place] coronary artery without angina pectoris (3) ESRD (end stage renal disease) Code(s): N18.6 - END STAGE RENAL DISEASE (4) Fever Code(s): R50.9 - FEVER, UNSPECIFIED Qualifiers: Fever type: unspecified Qualified Code(s): R50.9 - Fever, unspecified (5) HTN (hypertension) Code(s): I10 - ESSENTIAL (PRIMARY) HYPERTENSION (6) Hypertensive cardiomyopathy Code(s): I11.9 - HYPERTENSIVE HEART DISEASE WITHOUT HEART FAILURE; I43 - CARDIOMYOPATHY IN DISEASES CLASSIFIED ELSEWHERE Qualifiers: Heart failure presence: with heart failure Qualified Code(s): I11.0 - Hypertensive heart disease with heart failure; I43 - Cardiomyopathy in diseases classified elsewhere (7) Hypoxia Code(s): R09.02 - HYPOXEMIA (8) Pleural effusion Code(s): J90 - PLEURAL EFFUSION, NOT ELSEWHERE CLASSIFIED (9) S/P CABG (coronary artery bypass graft) Code(s): Z95.1 - PRESENCE OF AORTOCORONARY BYPASS GRAFT Assessment/Plan 63 y.o. male with PMH of CAD s/p CABG, CHF, ESRD on HD, DM presenting with fever , hypoxia Pleural Effusion s/p thoracentesis Eosinophilia Acute on Chronic CHF Hypoxemia Fever ESRD on HD DM CAD -- Pt off antibiotics, currently afebrile, without respiratory distress -- eosinophilia improving -- continue monitor
[2018-07-25 13:16] LABS: HEMATOCRIT 30.7 % (35.4-49); HEMOGLOBIN 10.1 GM/dL (11.7-16.9); MCH 28.3 pg (25.7-33.7); MEAN CELL VOLUME 85.7 fl (80-96); MEAN PLT VOLUME 8.4 fl (7.5-11.1); PLATELET COUNT 205 K/MM3 (134-434); RBC 3.58 M/mm3 (4.00-5.60); RDW 16.2 % (11.9-15.9); WHITE BLOOD COUNT 4.3 K/mm3 (4.0-10.0)
[2018-07-25 13:37] LABS: ANION GAP 11 MMOL/L (8-16); BLOOD UREA NITROGEN 57 mg/dL (7-18); CALCIUM 8.3 mg/dL (8.5-10.1); CHLORIDE 97 mmol/L (98-107); CO2 30 mmol/L (21-32); GLUCOSE,RANDOM 208 mg/dL (74-106); POTASSIUM 3.9 mmol/L (3.5-5.1); SODIUM 138 mmol/L (136-145)
[2018-07-25 13:48] LABS: CREATININE 8.4 mg/dL (0.7-1.3)
[2018-07-25 17:30] LABS: CREATININE 2.2 mg/dL (0.7-1.3)
--- NOTE | 2018-07-25 20:27 | CONSULT ---
Consult - text type - Consultation Consultation Note: 63 year old male with pmhx of ESRD on HD, HTN, CAD, CABG, and DM who was sent in from [facility] for fever 101. Pt was found to be hypoxic on room air with volume overload. We are consulted for eosinophilia - History Source History Provided By: Medical Record Limitations to Obtaining History: Poor Historian - Past Medical History Cardio/Vascular: Yes: CAD, HTN, Hyperlipdemia Gastrointestinal: Yes: Constipation Renal/: Yes: Renal Failure, Hemodialysis - Past Surgical History Past Surgical History: Yes: CABG - Smoking History Smoking history: Never smoked Home Medications - Allergies Allergies/Adverse Reactions: Allergies Allergy/AdvReac Type Severity Reaction Status Date / Time No Known Allergies Allergy Verified 07/19/18 12:22 - Home Medications Home Medications: Ambulatory Orders Acetaminophen [Tylenol] 650 mg PO Q6H PRN 07/19/18 Amlodipine Besylate [Norvasc -] 10 mg PO DAILY 07/19/18 Aspirin [Ecotrin] 325 mg PO DAILY 07/19/18 Atorvastatin Ca [Lipitor] 20 mg PO HS 07/19/18 Calcium Acetate [Phoslo -] 667 mg PO TIDCM 07/19/18 Carvedilol [Coreg -] 12.5 mg PO BID 07/19/18 Clonidine Patch [Catapres Tts Patch -] 0.2 mg TD OLIVIER 07/19/18 Docusate Sodium [Colace -] 100 mg PO BID 07/19/18 Ergocalciferol [Vitamin D2] 50,000 unit PO OLIVIER 07/19/18 Folic Acid - 1 mg PO DAILY 07/19/18 Insulin Lispro [Humalog] 0 unit SQ BID PRN 07/19/18 Metoprolol Tartrate [Lopressor -] 50 mg PO BID 07/19/18 Pantoprazole Sodium [Protonix] 40 mg PO DAILY 07/19/18 hydrALAZINE HCL [Apresoline -] 25 mg PO TID 07/19/18 Last Vital Signs Temp Pulse Resp BP Pulse Ox 97.8 F 62 18 114/61 99 07/25/18 18:35 07/25/18 18:35 07/25/18 18:35 07/25/18 18:35 07/25/18 20:10 Cor: RSR, No murmurs, No gallops Lungs: Clear to P&A Abd: Soft, Normal bowel sounds, No organomegaly Ext:No significant edema Abnormal Lab Results 07/25/18 07/25/18 07/25/18 05:30 12:40 12:40 WBC 3.8 L RBC 3.86 L 3.58 L Hgb 10.8 L 10.1 L Hct 32.7 L 30.7 L RDW 16.7 H 16.2 H Monocytes % 11.7 H Eosinophils % 19.4 H Chloride 97 L BUN 57 H D Creatinine 8.4 H* Random Glucose 208 H D Calcium 8.3 L 07/25/18 16:00 WBC RBC Hgb Hct RDW Monocytes % Eosinophils % Chloride BUN Creatinine 2.2 H Random Glucose Calcium Active Medications Generic Name Dose Route Start Last Admin Trade Name Freq PRN Reason Stop Dose Admin Acetaminophen 650 mg 07/19/18 20:47 07/20/18 02:32 Tylenol - PO 650 mg Q6H PRN Administration FEVER Aspirin 325 mg 07/20/18 10:00 07/25/18 09:45 Ecotrin - PO 325 mg DAILY [facility] Administration Atorvastatin Calcium 20 mg 07/19/18 22:00 07/24/18 21:13 Lipitor - PO 20 mg HS [facility] Administration Calcium Acetate 667 mg 07/20/18 08:00 07/25/18 17:29 Phoslo - PO 667 mg TIDCM [facility] Administration Carvedilol 25 mg 07/20/18 22:00 07/25/18 09:44 Coreg - PO 25 mg BID [facility] Administration Clonidine HCl 0.2 mg 07/19/18 22:00 07/20/18 02:31 Catapres Tts Patch - TD 0.2 mg Tu@2200 [facility] Administration Docusate Sodium 100 mg 07/19/18 22:00 07/25/18 09:45 Colace - PO 100 mg BID [facility] Administration Ergocalciferol 50,000 unit 07/24/18 10:00 07/24/18 11:43 Drisdol - PO 50,000 unit Olivier@1000 [facility] Administration Folic Acid 1 mg 07/20/18 10:00 07/25/18 09:47 Folic Acid - PO 1 mg DAILY [facility] Administration Heparin Sodium (Porcine) 5,000 unit 07/19/18 22:00 07/25/18 09:45 Heparin - SQ 5,000 unit BID [facility] Administration Hydralazine HCl 25 mg 07/19/18 22:00 07/25/18 14:57 Apresoline - PO Not Given TID [facility] Nifedipine 90 mg 07/25/18 12:38 Procardia Xl - PO DAILY [facility] Pantoprazole Sodium 40 mg 07/20/18 10:00 07/25/18 09:45 Protonix - PO 40 mg DAILY [facility] Administration Imaging - Results Chest X-ray: Report Reviewed (R>L effusion, congestion) Problem List - Problems (1) CAD (coronary artery disease) Code(s): I25.10 - ATHSCL HEART DISEASE OF [place] CORONARY ARTERY W/O ANG PCTRS Qualifiers: Coronary Disease-Associated Artery/Lesion type: [place] artery [place] vs. transplanted heart: [place] heart Associated angina: without angina Qualified Code(s): I25.10 - Atherosclerotic heart disease of [place] coronary artery without angina pectoris (2) ESRD (end stage renal disease) Code(s): N18.6 - END STAGE RENAL DISEASE (3) Fever Code(s): R50.9 - FEVER, UNSPECIFIED Qualifiers: Fever type: unspecified Qualified Code(s): R50.9 - Fever, unspecified (4) Hypoxia Code(s): R09.02 - HYPOXEMIA (5) S/P CABG (coronary artery bypass graft) Code(s): Z95.1 - PRESENCE OF AORTOCORONARY BYPASS GRAFT (6) Hypertensive cardiomyopathy Code(s): I11.9 - HYPERTENSIVE HEART DISEASE WITHOUT HEART FAILURE; I43 - CARDIOMYOPATHY IN DISEASES CLASSIFIED ELSEWHERE Qualifiers: Heart failure presence: with heart failure Qualified Code(s): I11.0 - Hypertensive heart disease with heart failure; I43 - Cardiomyopathy in diseases classified elsewhere (7) Acute on chronic diastolic heart failure Code(s): I50.33 - ACUTE ON CHRONIC DIASTOLIC (CONGESTIVE) HEART FAILURE Assessment/Plan 63 year old male with pmhx of ESRD on HD, HTN, CAD, CABG, and DM who was sent in from [facility] for fever of 101. He was found to be hypoxic at room air with volume overload. On dialysis and noted to have Pleural Effusion s/p thoracentesis Eosinophilia --? reactive to CHF eosinophil count 1196/cumm r/o allergic/infectious disease checking stool oand P, CLARICE, strongyloides ab check flow/FISH/cytogenetics/JAK2 if persistent may need w/u with CT scans etc. to r/o occult malignancy needs outpatient f/u in the office will follow
[2018-07-25] MEDS: ATORVASTATIN CA 20 MG TABLET (FP) PO SCH (21:51)
[2018-07-26] MEDS: NIFEdipine E.R. 90 MG TABLET (FP) PO SCH ×2 (03:54→09:53)
[2018-07-26] MEDS: hydrALAZINE HCL 25 MG TABLET (FP) PO SCH ×2 (06:18→14:34)
[2018-07-26] MEDS: CALCIUM ACETATE 667 MG CAPSULE (FP) PO SCH ×3 (08:40→17:05)
[2018-07-26] MEDS: CARVEDILOL 25 MG TABLET (FP) PO SCH (09:48)
[2018-07-26] MEDS: DOCUSATE SODIUM 100 MG CAPSULE (FP) PO SCH (09:48)
[2018-07-26] MEDS: PANTOPRAZOLE 40 MG TABLET (FP) PO SCH (09:48)
[2018-07-26] MEDS: FOLIC ACID 1 MG TABLET (FP) PO SCH (09:49)
[2018-07-26] MEDS: HEPARIN NA (PORCINE) 5,000 UNITS/ML 1ML VIAL SQ SCH (09:49)
[2018-07-26] MEDS: ASPIRIN 325 MG ENTERIC COATED TABLET (FP) PO SCH (09:49)
--- NOTE | 2018-07-26 10:04 | PN ---
Progress Note (short form) - Note Progress Note: Chief Complaint: Events noted, notes reviewed, denies any chest pain but reports dyspnea History of Present Illness: Seen and examined on telemetry. Events noted, notes reviewed, denies any chest pain but reports dyspnea Echocardiography dated 07/20/2018: Mod BRITTANY, normal LV size and fxn, mod-severe MR, TR, mod MAC - Current Medication List Current Medications Acetaminophen (Tylenol -) 650 mg PO Q6H PRN PRN Reason: FEVER Last Admin: 07/20/18 02:32 Dose: 650 mg Aspirin (Ecotrin -) 325 mg PO DAILY [facility] Last Admin: 07/26/18 09:49 Dose: 325 mg Atorvastatin Calcium (Lipitor -) 20 mg PO HS [facility] Last Admin: 07/25/18 21:51 Dose: 20 mg Calcium Acetate (Phoslo -) 667 mg PO TIDCM [facility] Last Admin: 07/26/18 08:40 Dose: 667 mg Carvedilol (Coreg -) 25 mg PO BID [facility] Last Admin: 07/26/18 09:48 Dose: 25 mg Clonidine HCl (Catapres Tts Patch -) 0.2 mg TD Tu@2200 [facility] Last Admin: 07/20/18 02:31 Dose: 0.2 mg Docusate Sodium (Colace -) 100 mg PO BID [facility] Last Admin: 07/26/18 09:48 Dose: 100 mg Ergocalciferol (Drisdol -) 50,000 unit PO Olivier@1000 [facility] Last Admin: 07/24/18 11:43 Dose: 50,000 unit Folic Acid (Folic Acid -) 1 mg PO DAILY [facility] Last Admin: 07/26/18 09:49 Dose: 1 mg Heparin Sodium (Porcine) (Heparin -) 5,000 unit SQ BID [facility] Last Admin: 07/26/18 09:49 Dose: 5,000 unit Hydralazine HCl (Apresoline -) 25 mg PO TID [facility] Last Admin: 07/26/18 06:18 Dose: 25 mg Nifedipine (Procardia Xl -) 90 mg PO DAILY [facility] Last Admin: 07/26/18 09:53 Dose: Not Given Pantoprazole Sodium (Protonix -) 40 mg PO DAILY [facility] Last Admin: 07/26/18 09:48 Dose: 40 mg Review of Systems - Review of Systems Constitutional: denies: Chills or Fever Cardiovascular: As noted above Respiratory: denies: Cough or Sputum Production Gastrointestinal: denies: Nausea, Vomiting, Diarrhea, Constipation or Abdominal Pain Musculoskeletal: No symptoms reported Neurological: denies: Dizziness or Headache - Objective Vital Signs: Last Vital Signs Temp Pulse Resp BP Pulse Ox 98 F 68 20 198/84 99 07/26/18 06:19 07/26/18 06:19 07/26/18 06:19 07/26/18 06:19 07/25/18 20:10 Intake & Output 07/23/18 07/24/18 07/25/18 07/26/18 23:59 23:59 23:59 23:59 Intake Total 990 650 240 60 Output Total 0 Balance 990 650 240 60 Weight 138 lb 11.2 oz 134 lb 6.4 oz 131 lb 9.6 oz Neck: Supple Negative JVD No bruit Cardiovascular: S1 S2 regular rate and rhythm Respiratory: diminished breath sounds at the bases Gastrointestinal: Soft Benign Normal Bowel Sounds Ext: Negative Edema Labs: CBC, BMP 07/25/18 12:40 07/25/18 16:00 Intake & Output 07/23/18 07/24/18 07/25/18 07/26/18 23:59 23:59 23:59 23:59 Intake Total 990 650 240 60 Output Total 0 Balance 990 650 240 60 Weight 138 lb 11.2 oz 134 lb 6.4 oz 131 lb 9.6 oz Assessment/Plan ASSESSMENT: 1. Acute hypoxic respiratory failure referable to 2. Acute on chronic class II-III NYHA classification LV failure related to diastolic LV dysfunction with MR/TR and pleural effusions post thoracentesis, resolved 3. CAD post CABG, angina pectoris 4. HTN uncontrolled 5. DM 6. Hyperlipidemia 7. Pneumonia, resolving 8. ESRD on HD 9. Anemia of CKD PLAN: 1. Continue Coreg 2. Continue Procardia XL 3. Continue Hydralazine and titrate dose as tolerated and needed 4. Continue Catapress patch 5. Continue Lipitor 6. Add ACEI or ARBS unless it is contraindicated 7. Antibiotics as per the primary team Dillan Acevedo MD
--- NOTE | 2018-07-26 11:24 | PN ---
Progress Note, Physician History of Present Illness: pulmonary alert,nad,-cp,sob - Current Medication List Current Medications: Active Medications Acetaminophen (Tylenol -) 650 mg PO Q6H PRN PRN Reason: FEVER Last Admin: 07/20/18 02:32 Dose: 650 mg Aspirin (Ecotrin -) 325 mg PO DAILY [facility] Last Admin: 07/26/18 09:49 Dose: 325 mg Atorvastatin Calcium (Lipitor -) 20 mg PO HS [facility] Last Admin: 07/25/18 21:51 Dose: 20 mg Calcium Acetate (Phoslo -) 667 mg PO TIDCM [facility] Last Admin: 07/26/18 08:40 Dose: 667 mg Carvedilol (Coreg -) 25 mg PO BID [facility] Last Admin: 07/26/18 09:48 Dose: 25 mg Clonidine HCl (Catapres Tts Patch -) 0.2 mg TD Tu@2200 [facility] Last Admin: 07/20/18 02:31 Dose: 0.2 mg Docusate Sodium (Colace -) 100 mg PO BID [facility] Last Admin: 07/26/18 09:48 Dose: 100 mg Ergocalciferol (Drisdol -) 50,000 unit PO Olivier@1000 [facility] Last Admin: 07/24/18 11:43 Dose: 50,000 unit Folic Acid (Folic Acid -) 1 mg PO DAILY [facility] Last Admin: 07/26/18 09:49 Dose: 1 mg Heparin Sodium (Porcine) (Heparin -) 5,000 unit SQ BID [facility] Last Admin: 07/26/18 09:49 Dose: 5,000 unit Hydralazine HCl (Apresoline -) 25 mg PO TID [facility] Last Admin: 07/26/18 06:18 Dose: 25 mg Nifedipine (Procardia Xl -) 90 mg PO DAILY [facility] Last Admin: 07/26/18 09:53 Dose: Not Given Pantoprazole Sodium (Protonix -) 40 mg PO DAILY [facility] Last Admin: 07/26/18 09:48 Dose: 40 mg - Objective Vital Signs: Vital Signs Temperature 98 F 07/26/18 06:19 Pulse Rate 68 07/26/18 06:19 Respiratory Rate 20 07/26/18 06:19 Blood Pressure 198/84 07/26/18 06:19 O2 Sat by Pulse Oximetry (%) 98 07/26/18 09:00 Constitutional: Yes: Well Nourished, Calm Eyes: Yes: WNL HENT: Yes: WNL Neck: Yes: WNL Cardiovascular: Yes: Regular Rate and Rhythm, S1, S2 Respiratory: Yes: Diminished Gastrointestinal: Yes: Normal Bowel Sounds, Soft Extremities: Yes: WNL Edema: No Labs: CBC, BMP 07/25/18 12:40 07/25/18 16:00 INR, PTT INR 0.97 (0.83-1.09) 07/19/18 12:47 Problem List - Problems (1) Pleural effusion Code(s): J90 - PLEURAL EFFUSION, NOT ELSEWHERE CLASSIFIED (2) Acute on chronic diastolic heart failure Code(s): I50.33 - ACUTE ON CHRONIC DIASTOLIC (CONGESTIVE) HEART FAILURE (3) CAD (coronary artery disease) Code(s): I25.10 - ATHSCL HEART DISEASE OF [place] CORONARY ARTERY W/O ANG PCTRS Qualifiers: Coronary Disease-Associated Artery/Lesion type: [place] artery [place] vs. transplanted heart: [place] heart Associated angina: without angina Qualified Code(s): I25.10 - Atherosclerotic heart disease of [place] coronary artery without angina pectoris (4) ESRD (end stage renal disease) Code(s): N18.6 - END STAGE RENAL DISEASE (5) Fever Code(s): R50.9 - FEVER, UNSPECIFIED Qualifiers: Fever type: unspecified Qualified Code(s): R50.9 - Fever, unspecified (6) HTN (hypertension) Code(s): I10 - ESSENTIAL (PRIMARY) HYPERTENSION (7) Hypertensive cardiomyopathy Code(s): I11.9 - HYPERTENSIVE HEART DISEASE WITHOUT HEART FAILURE; I43 - CARDIOMYOPATHY IN DISEASES CLASSIFIED ELSEWHERE Qualifiers: Heart failure presence: with heart failure Qualified Code(s): I11.0 - Hypertensive heart disease with heart failure; I43 - Cardiomyopathy in diseases classified elsewhere (8) S/P CABG (coronary artery bypass graft) Code(s): Z95.1 - PRESENCE OF AORTOCORONARY BYPASS GRAFT Assessment/Plan IMP ACUTE HYPOXEMIC RESPIRATORY FAILURE IMPROVED ACUTE ON CHRONIC CHF FEVER ? PNEUMONIA LOCULATED R PLEURAL EFFUSION TRANSUDATE,CYTOLOGY NEGATIVE ASHD S/P CABG ESRD ON HD EOSINOPHILIA HYPERTENSIVE URGENCY ANEMIA PLAN O2 HD PER RENAL TITRATE BP MEDS MONITOR LYTES,CBC,EOSINOPHIL CT DR MELENDREZ
--- NOTE | 2018-07-26 13:39 | PN ---
Progress Note, Physician History of Present Illness: Pt seen and examined. States he feels well, denying shortness of breath/cough, pruritis or rash and remains afebrile. Has no specific complaints. Ambulating without difficulty. - Current Medication List Current Medications: Active Medications Acetaminophen (Tylenol -) 650 mg PO Q6H PRN PRN Reason: FEVER Last Admin: 07/20/18 02:32 Dose: 650 mg Aspirin (Ecotrin -) 325 mg PO DAILY [facility] Last Admin: 07/26/18 09:49 Dose: 325 mg Atorvastatin Calcium (Lipitor -) 20 mg PO HS [facility] Last Admin: 07/25/18 21:51 Dose: 20 mg Calcium Acetate (Phoslo -) 667 mg PO TIDCM [facility] Last Admin: 07/26/18 11:41 Dose: 667 mg Carvedilol (Coreg -) 25 mg PO BID [facility] Last Admin: 07/26/18 09:48 Dose: 25 mg Clonidine HCl (Catapres Tts Patch -) 0.2 mg TD Tu@2200 [facility] Last Admin: 07/20/18 02:31 Dose: 0.2 mg Docusate Sodium (Colace -) 100 mg PO BID [facility] Last Admin: 07/26/18 09:48 Dose: 100 mg Ergocalciferol (Drisdol -) 50,000 unit PO Olivier@1000 [facility] Last Admin: 07/24/18 11:43 Dose: 50,000 unit Folic Acid (Folic Acid -) 1 mg PO DAILY [facility] Last Admin: 07/26/18 09:49 Dose: 1 mg Heparin Sodium (Porcine) (Heparin -) 5,000 unit SQ BID [facility] Last Admin: 07/26/18 09:49 Dose: 5,000 unit Hydralazine HCl (Apresoline -) 25 mg PO TID [facility] Last Admin: 07/26/18 06:18 Dose: 25 mg Nifedipine (Procardia Xl -) 90 mg PO DAILY [facility] Last Admin: 07/26/18 09:53 Dose: Not Given Pantoprazole Sodium (Protonix -) 40 mg PO DAILY [facility] Last Admin: 07/26/18 09:48 Dose: 40 mg - Objective Vital Signs: Vital Signs Temperature 98 F 07/26/18 06:19 Pulse Rate 68 07/26/18 06:19 Respiratory Rate 20 07/26/18 06:19 Blood Pressure 198/84 07/26/18 06:19 O2 Sat by Pulse Oximetry (%) 98 07/26/18 09:00 Constitutional: Yes: No Distress, Calm Cardiovascular: Yes: Regular Rate and Rhythm Respiratory: Yes: Diminished (slightly diminished in Rt base) Gastrointestinal: Yes: Normal Bowel Sounds, Soft Extremities: Yes: WNL Integumentary: Yes: WNL Neurological: Yes: Alert, Oriented Labs: CBC, BMP 07/25/18 12:40 07/25/18 16:00 INR, PTT INR 0.97 (0.83-1.09) 07/19/18 12:47 Microbiology 07/21/18 12:40 Pleural Fluid AFB Smear Concentration - Final 07/21/18 12:40 Pleural Fluid Mycobacterial Culture - Preliminary 07/19/18 12:47 Blood - Peripheral Venous Blood Culture - Final NO GROWTH AFTER 5 DAYS INCUBATION 07/19/18 12:47 Blood - Peripheral Venous Blood Culture - Final NO GROWTH AFTER 5 DAYS INCUBATION 07/21/18 12:40 Pleural Fluid Gram Stain - Final 07/21/18 12:40 Pleural Fluid Body Fluid Culture - Final NO GROWTH OF AEROBIC ORGANISMS AFTER 48 HOURS INCUBATION 07/21/18 12:40 Pleural Fluid Anaerobic Culture - Final NO ANAEROBES WERE ISOLATED 07/21/18 12:40 Pleural Fluid MATTY Preparation - Preliminary 07/21/18 12:40 Pleural Fluid Fungal Culture - Preliminary 07/19/18 13:05 Urine - Urine Clean Catch Urine Culture - Final NO GROWTH OBTAINED Problem List - Problems (1) Acute on chronic diastolic heart failure Code(s): I50.33 - ACUTE ON CHRONIC DIASTOLIC (CONGESTIVE) HEART FAILURE (2) CAD (coronary artery disease) Code(s): I25.10 - ATHSCL HEART DISEASE OF [place] CORONARY ARTERY W/O ANG PCTRS Qualifiers: Coronary Disease-Associated Artery/Lesion type: [place] artery [place] vs. transplanted heart: [place] heart Associated angina: without angina Qualified Code(s): I25.10 - Atherosclerotic heart disease of [place] coronary artery without angina pectoris (3) ESRD (end stage renal disease) Code(s): N18.6 - END STAGE RENAL DISEASE (4) Fever Code(s): R50.9 - FEVER, UNSPECIFIED Qualifiers: Fever type: unspecified Qualified Code(s): R50.9 - Fever, unspecified (5) HTN (hypertension) Code(s): I10 - ESSENTIAL (PRIMARY) HYPERTENSION (6) Hypertensive cardiomyopathy Code(s): I11.9 - HYPERTENSIVE HEART DISEASE WITHOUT HEART FAILURE; I43 - CARDIOMYOPATHY IN DISEASES CLASSIFIED ELSEWHERE Qualifiers: Heart failure presence: with heart failure Qualified Code(s): I11.0 - Hypertensive heart disease with heart failure; I43 - Cardiomyopathy in diseases classified elsewhere (7) Hypoxia Code(s): R09.02 - HYPOXEMIA (8) Pleural effusion Code(s): J90 - PLEURAL EFFUSION, NOT ELSEWHERE CLASSIFIED (9) S/P CABG (coronary artery bypass graft) Code(s): Z95.1 - PRESENCE OF AORTOCORONARY BYPASS GRAFT Assessment/Plan 63 y.o. male with PMH of CAD s/p CABG, CHF, ESRD on HD, DM presenting with fever , hypoxia Pleural Effusion s/p thoracentesis - no growth of organisms Eosinophilia - latest appears to have decreased Acute on Chronic CHF Hypoxemia Fever - resolved ESRD on HD DM CAD -- Pt now off antibiotics, remains afebrile/stable -- hematology consult noted for w/u of eosinophilia -- f/u strongyloides Ab results, request stool O+P -- continue monitor off antibiotics pt appears stable at this time d/w Dr. Elizabeth
--- NOTE | 2018-07-26 14:34 | DS ---
Physical Examination Vital Signs: Vital Signs Temperature 98 F 07/26/18 06:19 Pulse Rate 68 07/26/18 06:19 Respiratory Rate 20 07/26/18 06:19 Blood Pressure 198/84 07/26/18 06:19 O2 Sat by Pulse Oximetry (%) 98 07/26/18 09:00 Constitutional: Yes: No Distress, Calm Cardiovascular: Yes: Regular Rate and Rhythm Respiratory: Yes: Diminished Gastrointestinal: Yes: Normal Bowel Sounds, Soft. No: Tenderness Edema: No Labs: CBC, BMP 07/25/18 12:40 07/25/18 16:00 Discharge Summary Reason For Visit: FEVER; HYPOXIA Current Active Problems Acute on chronic diastolic heart failure (Acute) CAD (coronary artery disease) (Acute) ESRD (end stage renal disease) (Acute) Eosinophilia (Acute) Fever (Acute) HTN (hypertension) (Acute) Hypertensive cardiomyopathy (Acute) Hyponatremia (Acute) Hypoxia (Acute) Pleural effusion (Acute) Pleural effusion due to CHF (congestive heart failure) (Acute) S/P CABG (coronary artery bypass graft) (Acute) Hospital Course: Problem List - Problems (1) Acute on chronic diastolic heart failure Code(s): I50.33 - ACUTE ON CHRONIC DIASTOLIC (CONGESTIVE) HEART FAILURE (2) CAD (coronary artery disease) Code(s): I25.10 - ATHSCL HEART DISEASE OF [place] CORONARY ARTERY W/O ANG PCTRS Qualifiers: Coronary Disease-Associated Artery/Lesion type: [place] artery [place] vs. transplanted heart: [place] heart Associated angina: without angina Qualified Code(s): I25.10 - Atherosclerotic heart disease of [place] coronary artery without angina pectoris (3) ESRD (end stage renal disease) Code(s): N18.6 - END STAGE RENAL DISEASE (4) Fever Code(s): R50.9 - FEVER, UNSPECIFIED Qualifiers: Fever type: unspecified Qualified Code(s): R50.9 - Fever, unspecified (5) HTN (hypertension) Code(s): I10 - ESSENTIAL (PRIMARY) HYPERTENSION (6) Hypertensive cardiomyopathy Code(s): I11.9 - HYPERTENSIVE HEART DISEASE WITHOUT HEART FAILURE; I43 - CARDIOMYOPATHY IN DISEASES CLASSIFIED ELSEWHERE Qualifiers: Heart failure presence: with heart failure Qualified Code(s): I11.0 - Hypertensive heart disease with heart failure; I43 - Cardiomyopathy in diseases classified elsewhere (7) Hypoxia Code(s): R09.02 - HYPOXEMIA (8) Pleural effusion Code(s): J90 - PLEURAL EFFUSION, NOT ELSEWHERE CLASSIFIED (9) S/P CABG (coronary artery bypass graft) Code(s): Z95.1 - PRESENCE OF AORTOCORONARY BYPASS GRAFT Assessment/Plan 63 y.o. male with PMH of CAD s/p CABG, CHF, ESRD on HD, DM presenting with fever , hypoxia Pleural Effusion s/p thoracentesis - no growth of organisms, transudate, cytology negative Eosinophilia - latest appears to have decreased- seen by Hematology Acute on Chronic CHF Hypoxemia Fever - resolved ESRD on HD DM CAD -- Pt now off antibiotics, remains afebrile/stable -- hematology consult noted for w/u of eosinophilia -- f/u strongyloides Ab results, request stool O+P pt appears stable at this time Condition: Fair - Instructions Disposition: HALF-WAY FACILITY - Home Medications Comprehensive Discharge Medication List: Ambulatory Orders Acetaminophen [Tylenol] 650 mg PO Q6H PRN 07/19/18 Amlodipine Besylate [Norvasc -] 10 mg PO DAILY 07/19/18 Aspirin [Ecotrin] 325 mg PO DAILY 07/19/18 Atorvastatin Ca [Lipitor] 20 mg PO HS 07/19/18 Calcium Acetate [Phoslo -] 667 mg PO TIDCM 07/19/18 Carvedilol [Coreg -] 12.5 mg PO BID 07/19/18 Clonidine Patch [Catapres Tts Patch -] 0.2 mg TD MCM[facility]EN 07/19/18 Docusate Sodium [Colace -] 100 mg PO BID 07/19/18 Ergocalciferol [Vitamin D2] 50,000 unit PO [facility]CM[facility]EN 07/19/18 Folic Acid - 1 mg PO DAILY 07/19/18 Insulin Lispro [Humalog] 0 unit SQ BID PRN 07/19/18 Metoprolol Tartrate [Lopressor -] 50 mg PO BID 07/19/18 Pantoprazole Sodium [Protonix] 40 mg PO DAILY 07/19/18 hydrALAZINE HCL [Apresoline -] 25 mg PO TID 07/19/18
--- NOTE | 2018-07-26 15:08 | PN ---
Progress Note, Physician History of Present Illness: Pt seen and examined at bedside. He is awake and alert. He denies shortness of breath. - Current Medication List Current Medications: Active Medications Acetaminophen (Tylenol -) 650 mg PO Q6H PRN PRN Reason: FEVER Last Admin: 07/20/18 02:32 Dose: 650 mg Aspirin (Ecotrin -) 325 mg PO DAILY [facility] Last Admin: 07/26/18 09:49 Dose: 325 mg Atorvastatin Calcium (Lipitor -) 20 mg PO HS [facility] Last Admin: 07/25/18 21:51 Dose: 20 mg Calcium Acetate (Phoslo -) 667 mg PO TIDCM [facility] Last Admin: 07/26/18 11:41 Dose: 667 mg Carvedilol (Coreg -) 25 mg PO BID [facility] Last Admin: 07/26/18 09:48 Dose: 25 mg Clonidine HCl (Catapres Tts Patch -) 0.2 mg TD Tu@2200 [facility] Last Admin: 07/20/18 02:31 Dose: 0.2 mg Docusate Sodium (Colace -) 100 mg PO BID [facility] Last Admin: 07/26/18 09:48 Dose: 100 mg Ergocalciferol (Drisdol -) 50,000 unit PO Olivier@1000 [facility] Last Admin: 07/24/18 11:43 Dose: 50,000 unit Folic Acid (Folic Acid -) 1 mg PO DAILY [facility] Last Admin: 07/26/18 09:49 Dose: 1 mg Heparin Sodium (Porcine) (Heparin -) 5,000 unit SQ BID [facility] Last Admin: 07/26/18 09:49 Dose: 5,000 unit Hydralazine HCl (Apresoline -) 25 mg PO TID [facility] Last Admin: 07/26/18 14:34 Dose: 25 mg Nifedipine (Procardia Xl -) 90 mg PO DAILY [facility] Last Admin: 07/26/18 09:53 Dose: Not Given Pantoprazole Sodium (Protonix -) 40 mg PO DAILY [facility] Last Admin: 07/26/18 09:48 Dose: 40 mg - Objective Vital Signs: Vital Signs Temperature 98 F 07/26/18 06:19 Pulse Rate 68 07/26/18 06:19 Respiratory Rate 20 07/26/18 06:19 Blood Pressure 198/84 07/26/18 06:19 O2 Sat by Pulse Oximetry (%) 98 07/26/18 09:00 Constitutional: Yes: Calm Eyes: Yes: Conjunctiva Clear HENT: Yes: Atraumatic Neck: Yes: Supple Cardiovascular: Yes: S1, S2 Respiratory: Yes: CTA Bilaterally Gastrointestinal: Yes: Soft Genitourinary: Yes: WNL Musculoskeletal: Yes: WNL Edema: No Neurological: Yes: Oriented Psychiatric: Yes: Oriented Labs: CBC, BMP 07/25/18 12:40 07/25/18 16:00 INR, PTT INR 0.97 (0.83-1.09) 07/19/18 12:47 Problem List - Problems (1) ESRD (end stage renal disease) Code(s): N18.6 - END STAGE RENAL DISEASE (2) HTN (hypertension) Code(s): I10 - ESSENTIAL (PRIMARY) HYPERTENSION (3) CAD (coronary artery disease) Code(s): I25.10 - ATHSCL HEART DISEASE OF [place] CORONARY ARTERY W/O ANG PCTRS Qualifiers: Coronary Disease-Associated Artery/Lesion type: [place] artery [place] vs. transplanted heart: [place] heart Associated angina: without angina Qualified Code(s): I25.10 - Atherosclerotic heart disease of [place] coronary artery without angina pectoris (4) Hyponatremia Code(s): E87.1 - HYPO-OSMOLALITY AND HYPONATREMIA (5) Fever Code(s): R50.9 - FEVER, UNSPECIFIED Qualifiers: Fever type: unspecified Qualified Code(s): R50.9 - Fever, unspecified (6) Hypoxia Code(s): R09.02 - HYPOXEMIA Assessment/Plan Current Medications Generic Name Dose Route Start Last Admin Trade Name Freq PRN Reason Stop Dose Admin Acetaminophen 650 mg 07/19/18 20:47 07/20/18 02:32 Tylenol - PO 650 mg Q6H PRN Administration FEVER Aspirin 325 mg 07/20/18 10:00 07/26/18 09:49 Ecotrin - PO 325 mg DAILY [facility] Administration Atorvastatin Calcium 20 mg 07/19/18 22:00 07/25/18 21:51 Lipitor - PO 20 mg HS [facility] Administration Calcium Acetate 667 mg 07/20/18 08:00 07/26/18 11:41 Phoslo - PO 667 mg TIDCM [facility] Administration Carvedilol 25 mg 07/20/18 22:00 07/26/18 09:48 Coreg - PO 25 mg BID [facility] Administration Clonidine HCl 0.2 mg 07/19/18 22:00 07/20/18 02:31 Catapres Tts Patch - TD 0.2 mg Tu@2200 [facility] Administration Docusate Sodium 100 mg 07/19/18 22:00 07/26/18 09:48 Colace - PO 100 mg BID [facility] Administration Ergocalciferol 50,000 unit 07/24/18 10:00 07/24/18 11:43 Drisdol - PO 50,000 unit Olivier@1000 [facility] Administration Folic Acid 1 mg 07/20/18 10:00 07/26/18 09:49 Folic Acid - PO 1 mg DAILY [facility] Administration Heparin Sodium (Porcine) 5,000 unit 07/19/18 22:00 07/26/18 09:49 Heparin - SQ 5,000 unit BID [facility] Administration Hydralazine HCl 25 mg 07/19/18 22:00 07/26/18 14:34 Apresoline - PO 25 mg TID [facility] Administration Nifedipine 90 mg 07/25/18 12:38 07/26/18 09:53 Procardia Xl - PO Not Given DAILY [facility] Pantoprazole Sodium 40 mg 07/20/18 10:00 07/26/18 09:48 Protonix - PO 40 mg DAILY [facility] Administration Impression 1. ESRD 2. hyponatremia 3. PNA 4. sepsis 5. pleural effusion 6. CAD 7. hx CABG 8. DM 9. HLD 10. anemia 11. hypoxia Plan - repeat bp after am meds - cardio input appreciated, will add losartan - cont to monitor bp - next HD is tomorrow, he does have a spot set up as outpt - will follow pt Dr Siu
[2018-07-26] MEDS ORDERED: LOSARTAN POTASSIUM 25 MG TABLET PO SCH (15:15)
[2018-07-26 15:58] VITALS: BMI 21.2
[2018-07-26 19:39] VITALS: BP 140/70; PULSE 65; TEMP 98.8
--- NOTE | 2018-07-28 16:44 | PATH ---
Surgical Pathology Report Patient Name: GRAHAM LINDER [facility]. Rec. #: [id number] /Age/Gender: 1955 (Age: 63) / M Account: [id number] Location: 4 W TELEMETRY U Taken: 07/26/2018 Received: 07/26/2018 Reported: 07/28/2018 Physicians: Lola Lazaro M.D. Specimen(s) Received 4 GREEN TOP TUBES AND 4 PURPLE TOP TUBES Clinical History Eosinophilia Final Diagnosis COMPREHENSIVE FLOW PANEL performed and interpreted at [place], [place] ([id number]) shows the following: INTERPRETATION: In the samples analyzed, there is no evidence of B or T-cell proliferative disorders or increased blasts. HEMATOLOGIC FISH REPORT performed and interpreted at [facility] [place], [place] ([id number]) shows the following: Interpretation: PDGFRa rearrangement is not detected. See [facility] reports ([id number] and [id number]) for additional details. Comments: Correlation with pending cytogenetics ([id number]) is recommended. Electronically Signed Rosana Alejandro M.D. Addendum Reported: 07/29/2018 Addendum Diagnosis JAK2 V617F MUTATION ANALYSIS BY PCR ([id number]) performed and interpreted at [facility] [place] showed the following: RESULTS: Only the Wild-type JAK2 sequence was detected. INTERPRETATION: Negative for JAK2 V617F mutation. FISH STUDY ([id number]) performed and interpreted at [facility] [place] showed the following: INTERPRETATION: The PDGFRa rearrangement is not detected. See [facility] report for details ([id number] and [id number]). Correlation with pending cytogenetics ([id number]) is recommended. Rosana Alejandro M.D. Gross Description Received are 2 green top tubes and 2 purple top tubes of peripheral blood which are sent to [facility]. /07/26/2018 saudi/07/26/2018
== END 2018-07-26 18:00 | DRG 871 ==
LOC: JER 12:20 → JERBED 14:06 → J4W 19:18 → J4S 21:55 → J4W 21:56 → J4S 21:57 → J4W 22:02
PROVIDERS: ADMIT Internal Medicine; ATTEND Internal Medicine
PROC: 0W993ZX Drainage of Right Pleural Cavity, Percutaneous Approach, Diagnostic (ICD-10-PCS; principal; 2018-07-21)
PROC: 5A1D90Z Performance of Urinary Filtration, Continuous, Greater than 18 hours Per Day (ICD-10-PCS; 2018-07-25)
DX: A41.9 Sepsis, unspecified organism (principal); J18.9 Pneumonia, unspecified organism; J96.01 Acute respiratory failure with hypoxia; N18.6 End stage renal disease; I50.33 Acute on chronic diastolic (congestive) heart failure; E87.1 Hypo-osmolality and hyponatremia; I13.2 Hypertensive heart and chronic kidney disease with heart failure and with stage 5 chronic kidney disease, or end stage renal disease; J90 Pleural effusion, not elsewhere classified; E11.22 Type 2 diabetes mellitus with diabetic chronic kidney disease; Z99.2 Dependence on renal dialysis; Z95.1 Presence of aortocoronary bypass graft; D72.1 Eosinophilia; D63.1 Anemia in chronic kidney disease; I25.119 Atherosclerotic heart disease of native coronary artery with unspecified angina pectoris; E78.5 Hyperlipidemia, unspecified; E87.70 Fluid overload, unspecified
CPT/HCPCS: 36415; 71045-TC-FY; 71250-TC; 76942; 80048; 80053; 81003; 81015; 82042; 82150; 82565; 82945; 82962; 83036; 83605; 83615; 83880; 84157; 84311; 84478; 84484; 84520; 85025; 85027; 85610; 85651; 85730; 86038; 86682; 86704; 86706; 86708; 86803; 87040; 87070; 87075; 87086; 87102; 87116; 87205; 87206; 87210; 87340; 88108; 88300-TC; 88305-TC; 89051; 93005; 93010; 93306-TC; 99284-25; J0885; J1644

== ENCOUNTER 2018-09-23 06:21 | Inpatient (IN) | payer OTHER ==
--- NOTE | 2018-09-23 07:09 | PDOC ---
History of Present Illness <Osiris Bennett - Last Filed: 09/23/18 10:35> - General History Source: Patient - History of Present Illness Initial Comments: 09/23/18 07:15 The patient is an 83 year old male with a PMH of ESRD (//Wed HD) HTN, CAD (s/ p CABG), IDDM who presents from [facility] for c/o for a c/o AMS. At presentation patient c/o R foot pain but denies any other active medical complaints. Call placed to [facility] , case d/w RN Thalia, notes patient was "moaning" overnight. At baseline patient is A&O x3. Patient states his last HD was yesterday, [facility] confirms it was a full run. Patient has been at [facility] intermittently for the last 2 years. As per paperwork from [facility] patient was hypotensive (88/54) and hypoxic (SpO2 88%) this morning prior to presentation. NKDA Surgical: denies Social: denies toxic habits PMD: Dr. Maddie Davenport As per EMR, patient was last evaluated in our ED in 07/2018 for fever and hypoxia. CXR showed pleural effusion. Labs significant for eosinophilia - s/p Abx. Blood, pleural fluid and urine cultures were negative for growth. TB negative. Patient discharged to [facility] on 07/26/2018. <Kenia Croft - Last Filed: 09/23/18 17:09> - General Chief Complaint: Altered Mental Status Stated Complaint: AMS Time Seen by Provider: 09/23/18 07:00 Past History <Osiris Bennett - Last Filed: 09/23/18 10:35> - Past Medical History Anemia: Yes Cardiac Disorders: Yes (CAD, DVT right leg, Angina) COPD: No DVT: Yes Dementia: Yes Diabetes: Yes Dialysis: Yes (e- - wed right chest dialysis catheter) GI Disorders: Yes (GERD, Dysphagia) HTN: Yes Hypercholesterolemia: Yes - Surgical History Cardiac Surgery: Yes (CABG) - Suicide/Smoking/Psychosocial Hx Smoking History: Unknown if ever smoked Have you smoked in the past 12 months: No Information on smoking cessation initiated: No Hx Alcohol Use: No Drug/Substance Use Hx: No Substance Use Type: None <Kenia Croft - Last Filed: 09/23/18 17:09> - Past Medical History Allergies/Adverse Reactions: Allergies Allergy/AdvReac Type Severity Reaction Status Date / Time No Known Allergies Allergy Verified 09/23/18 06:37 Home Medications: Ambulatory Orders Acetaminophen [Tylenol] 650 mg PO Q6H PRN 07/19/18 Amlodipine Besylate [Norvasc -] 10 mg PO DAILY 07/19/18 Aspirin [Ecotrin] 325 mg PO DAILY 07/19/18 Atorvastatin Ca [Lipitor] 20 mg PO HS 07/19/18 Calcium Acetate [Phoslo -] 667 mg PO TIDCM 07/19/18 Carvedilol [Coreg -] 12.5 mg PO BID 07/19/18 Clonidine Patch [Catapres Tts Patch -] 0.2 mg TD MCMULLEN 07/19/18 Docusate Sodium [Colace -] 100 mg PO BID 07/19/18 Ergocalciferol [Vitamin D2] 50,000 unit PO MCMULLEN 07/19/18 Folic Acid - 1 mg PO DAILY 07/19/18 Metoprolol Tartrate [Lopressor -] 50 mg PO BID 07/19/18 hydrALAZINE HCL [Apresoline -] 25 mg PO TID 07/19/18 Gel Dressing [Dermasyn] 85 gm TP BID 09/23/18 Insulin Aspart [Novolog] 100 unit SQ ASDIR 09/23/18 Review of Systems - Review of Systems Constitutional: No: Chills, Fever HEENTM: No: Blurred Vision, Double Vision Respiratory: No: Cough, Shortness of Breath Cardiac (ROS): No: Chest Pain, Lightheadedness, Palpitations, Syncope ABD/GI: No: Constipated, Diarrhea, Nausea, Vomiting Musculoskeletal: Yes: Other (L foot pain) <Kenia Croft - Last Filed: 09/23/18 17:09> *Physical Exam - Vital Signs Last Vital Signs Temp Pulse Resp BP Pulse Ox 100.1 F H 101 H 16 116/66 98 09/23/18 09:26 09/23/18 09:48 09/23/18 09:48 09/23/18 09:48 09/23/18 09:48 <Osiris Bennett - Last Filed: 09/23/18 10:35> - Vital Signs Last Vital Signs Temp Pulse Resp BP Pulse Ox 99.4 F 83 18 104/62 100 09/23/18 06:45 09/23/18 06:45 09/23/18 06:45 09/23/18 06:45 09/23/18 06:45 - Physical Exam General Appearance: Yes: Nourished, Thin HEENT: positive: Other (R sided cerumen impaction). negative: TM Bulging, TM Dull, TM Erythema Neck: positive: Trachea midline, Supple Respiratory/Chest: positive: Lungs Clear, Normal Breath Sounds, Other (R sided chest wall catheter - C/D/I) Cardiovascular: positive: S1, S2. negative: JVD Vascular Pulses: Dorsalis-Pedis (R): 2+, Doralis-Pedis (L): 2+ Extremity: positive: Other (L calcaneal + heel Stage 2 ulcer, healing abrasion, no purulent discharge, non-edematous, not appreciably hot to touch) Integumentary: positive: Normal Color, Warm <Kenia Croft - Last Filed: 09/23/18 17:09> ED Treatment Course - LABORATORY CBC & Chemistry Diagram: 09/23/18 08:00 09/23/18 08:00 - ADDITIONAL ORDERS Additional order review: Laboratory Results 09/23/18 09/23/18 09/23/18 08:30 08:30 08:29 PT with INR 13.40 H INR 1.13 H PTT (Actin FS) 23.2 L Sodium Potassium Chloride Carbon Dioxide Anion Gap BUN Creatinine Creat Clearance w eGFR POC Glucometer [phone] Random Glucose Lactic Acid 1.0 Calcium Magnesium Total Bilirubin AST ALT Alkaline Phosphatase Ammonia Troponin I Total Protein Albumin Vitamin B12 TSH 09/23/18 09/23/18 08:00 08:00 PT with INR INR PTT (Actin FS) Sodium 134 L Potassium 3.4 L Chloride 95 L Carbon Dioxide 25 Anion Gap 14 BUN 48 H Creatinine 6.8 H Creat Clearance w eGFR 8.32 POC Glucometer Random Glucose 166 H Lactic Acid Calcium 8.7 Magnesium 2.4 Total Bilirubin 0.5 AST 15 ALT 18 Alkaline Phosphatase 104 Ammonia < 10.00 L Troponin I < 0.02 Total Protein 6.5 Albumin 2.7 L Vitamin B12 603 TSH 1.97 09/23/18 09/23/18 08:29 08:00 RBC 3.54 L MCV 89.4 MCHC 31.9 L RDW 17.2 H MPV 8.1 Neutrophils % 76.4 D Lymphocytes % 6.6 L D Monocytes % 15.6 H Eosinophils % 1.1 D Basophils % 0.3 POC Glucometer [phone] - Medications Given in the ED: ED Medications Discontinued Medications Generic Name Dose Route Start Last Admin Trade Name Disha PRN Reason Stop Dose Admin Acetaminophen 650 mg 09/23/18 09:40 09/23/18 09:48 Tylenol - PO 09/23/18 09:41 Not Given ONCE ONE - Consult/PCP Time Called: 10:28 (Called Dr. Davenport's service 2nd time) <Osiris Bennett - Last Filed: 09/23/18 10:35> - LABORATORY CBC & Chemistry Diagram: 09/23/18 08:00 09/23/18 08:00 <Kenia Croft - Last Filed: 09/23/18 17:09> Medical Decision Making - Medical Decision Making 09/23/18 07:27 63 year old male presents from [facility] c/o R foot pain. Staff at [facility] note AMS. Though patient is A&O x3, unable to provide much history. As per paperwork for rehab center, patient hypotensive (SBP 80's) and hypoxic (88%) this morning prior to presentation; VS @ presentation 104/62, Oral Temp 99.4. Rectal Temp pending. Frontal diagnosis: PNA, occult infection , hypovolemia, metabolic derangement, possibly infection 2/2 to foot ulcer ( less likely), or influenza (less likely). 09/23/18 07:56 Repeat Rectal Temp 100.1 - will initiate Adult ED sepsis Other VS unremarkable 09/23/18 09:13 Leukocytosis 13 Hb stable @ 10 09/23/18 09:14 CXR show R sided atelectasis and fluid c/w previous XR Pleural effusion possibly 2/2 to infection (PNA) vs. malignancy vs. hypoalbunemia. 09/23/18 10:06 Patient reassessed @ bedside. VSS CMP shows K+ 3.4, Na 134 At this time uncertain of febrile source. Will discuss with PMD whether we should send permacath tip 09/23/18 11:05 Case d/w Dr. Maddie Davenport - will admit for further evaluation. Vascular surgery consult placed. ID consult placed. 09/23/18 11:31 Dr. Cardenas (ID) @ bedside, requests abdominal CT as patient now c/o abdominal pain. <Kenia Croft - Last Filed: 09/23/18 17:09> *DC/Admit/Observation/Transfer <Osiris Bennett - Last Filed: 09/23/18 10:35> - Discharge Dispostion Decision to Admit order: Yes <Kenia Croft - Last Filed: 09/23/18 17:09> Diagnosis at time of Disposition: Pleural effusion - Discharge Dispostion Condition at time of disposition: Fair
--- NOTE | 2018-09-23 07:38 | PDOC ---
Attending Attestation - Resident Resident Name: Kenia Croft - ED Attending Attestation I have performed the following: I have examined & evaluated the patient, The case was reviewed & discussed with the resident, I agree w/resident's findings & plan, Exceptions are as noted - HPI HPI: 09/23/18 07:36 63y M hx of DM, ESRD (,Th,, last dialysis Th), presents from [facility] for AMS, per NH staff, he was heard moaning over night, was found to be with bp of 82/44, p 86 and O2 sat of 88. The patients vitals appear more stable here. Pt has no complaints, he denies any n/v, abd pain, cp, sob, cough, dizziess, abd pain, diarrhea, dysuria, melena, bpr. On exam: GENERAL: The patient is awake, alert, and oriented x 2, Nontoxic - in no acute distress. HEAD: Normocephalic, atraumatic. EYES: extraocular movements intact, sclera anicteric, conjunctiva clear. ENT: Normal voice, Moist mucous membranes. NECK: Normal range of motion, supple CHEST/LUNGS: Permacath in the right chest, Breath sounds equal, clear to auscultation bilaterally. No wheezes, no rhonchi, no rales. midline scar in chest that is well healed HEART: Regular rate and rhythm, normal S1 and S2 without murmur, rub or gallop. ABDOMEN: Soft, nontender, No guarding, no rebound. . No CVA tenderness EXTREMITIES: Normal range of motion, no edema. No clubbing or cyanosis. No cords, erythema, or tenderness. NEUROLOGICAL: No facial assymetry, Normal speech, PSYCH: Normal mood, normal affect. SKIN: Warm, Dry, normal turgor, eschar on heel of L foot that is clean/dry/non indurated, a&p differential is wide and includes occlt infection, hypovolemia, metabolc derangement will obtain blood work, cxr, ekg will reassess - Physicial Exam PE: 09/29/18 23:21 see above - Medical Decision Making 09/23/18 10:06 The patient's blood work was reviewed it is noted for leukocytosis. The patient's chest x-ray is notable for a pleural effusion which is present on prior admission The patient is a low-grade temperature here unclear source of infection consider possible pneumonia as the patient is a cough versus infected catheter as the patient does have an indwelling permacath. Will start broad-spectrum antibiotics will discuss with Dr. Davenport regarding admission for further evaluation
[2018-09-23 09:09] LABS: BASO % 0.3 % (0-2.0); EOS % 1.1 % (0-4.5); HEMATOCRIT 31.6 % (35.4-49); HEMOGLOBIN 10.1 GM/dL (11.7-16.9); LYMPH % 6.6 % (8-40); MCH 28.5 pg (25.7-33.7); MCHC 31.9 g/dl (32.0-35.9); MEAN CELL VOLUME 89.4 fl (80-96); MEAN PLT VOLUME 8.1 fl (7.5-11.1); MONO % 15.6 % (3.8-10.2); NEUT % 76.4 % (42.8-82.8); PLATELET COUNT 327 K/MM3 (134-434); RBC 3.54 M/mm3 (4.00-5.60); RDW 17.2 % (11.9-15.9)
[2018-09-23 09:12] LABS: INR 1.13 (0.83-1.09); PROTHROMBIN TIME (PATIENT) 13.4 SEC (9.7-13.0)
[2018-09-23 09:15] LABS: ACTIVATED PTT 23.2 SECONDS (25.2-36.5)
[2018-09-23 09:28] LABS: ALBUMIN 2.7 g/dl (3.4-5.0); ALK PHOS 104 U/L (45-117); ANION GAP 14 MMOL/L (8-16); BILIRUBIN,TOTAL 0.5 mg/dL (0.2-1); BLOOD UREA NITROGEN 48 mg/dL (7-18); CALCIUM 8.7 mg/dL (8.5-10.1); CHLORIDE 95 mmol/L (98-107); CO2 25 mmol/L (21-32); CREATININE 6.8 mg/dL (0.55-1.3); GLUCOSE,RANDOM 166 mg/dL (74-106); MAGNESIUM 2.4 mg/dL (1.8-2.4); POTASSIUM 3.4 mmol/L (3.5-5.1); SGOT/AST 15 U/L (15-37); SGPT/ALT 18 U/L (13-61); SODIUM 134 mmol/L (136-145); TOT PROT 6.5 g/dl (6.4-8.2)
[2018-09-23] MEDS ORDERED: ACETAMINOPHEN 325 MG TABLET (FP) PO ONE (09:40)
[2018-09-23] MEDS ORDERED: ACETAMINOPHEN 325 MG TABLET (FP) ONE (09:44)
--- NOTE | 2018-09-23 10:41 | EKG ---
Test Reason : Blood Pressure : / mmHG Vent. Rate : 085 BPM Atrial Rate : 085 BPM P-R Int : 138 ms QRS Dur : 100 ms QT Int : 390 ms P-R-T Axes : 043 018 098 degrees QTc Int : 464 ms NORMAL SINUS RHYTHM NONSPECIFIC T WAVE ABNORMALITY PROLONGED QT ABNORMAL ECG Confirmed by DAVY MARTINEZ MD ([id number]) on 09/23/2018 10:40:39 AM Referred By: Confirmed By:DAVY MARTINEZ MD
[2018-09-23] MEDS ORDERED: VANCOMYCIN 1,000 MG in DEXTROSE 5%-WATER - 250 ML IVPB ONE (10:53)
[2018-09-23] MEDS ORDERED: CEFEPIME HCL/D5W 1 GM/50 ML BAG IVPB ONE (10:54)
[2018-09-23] MEDS ORDERED: VANCOMYCIN 1 GRAM (PRE-DOCKED) 1,000 MG/250 ML BAG IVPB ONE (10:59)
[2018-09-23] MEDS ORDERED: CEFEPIME 1 GM/100 ML BAG IVPB ONE (11:00)
[2018-09-23] MEDS ORDERED: ACETAMINOPHEN 1000 MG/100 ML VIAL (NON FORMULARY) IVPB ONE ×2 (11:01→23:45)
[2018-09-23] MEDS ORDERED: ACETAMINOPHEN INJECTION 100 ML IVPB ONE (11:05)
--- NOTE | 2018-09-23 12:45 | HP ---
Admitting History and Physical - Primary Care Physician PCP: Maddie Davenport - Admission History of Present Illness: patient seen and examined in the emergency room case discussed with Emergency room resident Emergency room records reviewed in summary The patient is an 83 year old male with a PMH of ESRD (//Wed HD) HTN, CAD (s/ p CABG), IDDM who presents from [facility] for c/o for a c/o AMS. At presentation patient c/o R foot pain but denies any other active medical complaints. Call placed to [facility] , case d/w RN Thalia, notes patient was "moaning" overnight. At baseline patient is A&O x3. Patient states his last HD was yesterday, [facility] confirms it was a full run. Patient has been at [facility] intermittently for the last 2 years. patient was hospitalized a few months ago due to CHF /pleural effusion--- underwent thoracocentesis. As per paperwork from [facility] patient was hypotensive (88/54) and hypoxic (SpO2 88%) this morning prior to presentation. patient was hypotensive in the emergency room Given fluids and broad-spectrum antibiotics Blood pressure much better improved Patient seen by me in the emergency room Awake Poor historian but denies pain Chronic ill appearance No distress Chart reviewed History Source: Medical Record Limitations to Obtaining History: Clinical Condition - Past Medical History Cardiovascular: Yes: CAD, HTN, Hyperlipdemia Gastrointestinal: Yes: Constipation Renal/: Yes: Renal Failure, Hemodialysis Heme/Onc: Yes: Anemia - Past Surgical History Past Surgical History: Yes: CABG - Smoking History Smoking history: Unknown if ever smoked Have you smoked in the past 12 months: No - Alcohol/Substance Use Hx Alcohol Use: No Home Medications - Allergies Allergies/Adverse Reactions: Allergies Allergy/AdvReac Type Severity Reaction Status Date / Time No Known Allergies Allergy Verified 09/23/18 06:37 - Home Medications Home Medications: Ambulatory Orders Acetaminophen [Tylenol] 650 mg PO Q6H PRN 07/19/18 Amlodipine Besylate [Norvasc -] 10 mg PO DAILY 07/19/18 Aspirin [Ecotrin] 325 mg PO DAILY 07/19/18 Atorvastatin Ca [Lipitor] 20 mg PO HS 07/19/18 Calcium Acetate [Phoslo -] 667 mg PO TIDCM 07/19/18 Carvedilol [Coreg -] 12.5 mg PO BID 07/19/18 Clonidine Patch [Catapres Tts Patch -] 0.2 mg TD MCMULLEN 07/19/18 Docusate Sodium [Colace -] 100 mg PO BID 07/19/18 Ergocalciferol [Vitamin D2] 50,000 unit PO MCMULLEN 07/19/18 Folic Acid - 1 mg PO DAILY 07/19/18 Metoprolol Tartrate [Lopressor -] 50 mg PO BID 07/19/18 hydrALAZINE HCL [Apresoline -] 25 mg PO TID 07/19/18 Gel Dressing [Dermasyn] 85 gm TP BID 09/23/18 Insulin Aspart [Novolog] 100 unit SQ ASDIR 09/23/18 Review of Systems Findings/Remarks: see [facility] Physical Examination Vital Signs: Vital Signs Temperature 100.1 F H 09/23/18 09:26 Pulse Rate 94 H 09/23/18 11:06 Respiratory Rate 16 09/23/18 11:06 Blood Pressure 141/58 L 09/23/18 11:06 O2 Sat by Pulse Oximetry (%) 98 09/23/18 11:06 Constitutional: Yes: No Distress, Cachectic Eyes: Yes: Conjunctiva Clear Neck: Yes: Supple Cardiovascular: Yes: Regular Rate and Rhythm Respiratory: Yes: Diminished Gastrointestinal: Yes: Soft Edema: No Integumentary: Yes: Other (left heel ulcer) Neurological: Yes: Alert Psychiatric: Yes: Alert (left chest wall permacath) Labs: CBC, BMP 09/23/18 08:00 09/23/18 08:00 Imaging - Results Chest X-ray: Report Reviewed EKG: Report Reviewed Problem List - Problems (1) Sepsis associated hypotension Code(s): A41.9 - SEPSIS, UNSPECIFIED ORGANISM; I95.9 - HYPOTENSION, UNSPECIFIED (2) Altered mental status Code(s): R41.82 - ALTERED MENTAL STATUS, UNSPECIFIED (3) CAD (coronary artery disease) Code(s): I25.10 - ATHSCL HEART DISEASE OF [place] CORONARY ARTERY W/O ANG PCTRS Qualifiers: Coronary Disease-Associated Artery/Lesion type: [place] artery [place] vs. transplanted heart: [place] heart Associated angina: without angina Qualified Code(s): I25.10 - Atherosclerotic heart disease of [place] coronary artery without angina pectoris (4) ESRD (end stage renal disease) Code(s): N18.6 - END STAGE RENAL DISEASE (5) Fever Code(s): R50.9 - FEVER, UNSPECIFIED Qualifiers: Fever type: unspecified Qualified Code(s): R50.9 - Fever, unspecified (6) S/P CABG (coronary artery bypass graft) Code(s): Z95.1 - PRESENCE OF AORTOCORONARY BYPASS GRAFT Assessment/Plan antibiotics Hold blood pressure medications Monitor blood sugar Dialysis as per renal--- had dialysis yesterday 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
--- NOTE | 2018-09-23 13:45 | CON.ID ---
Consult Consult Specialty:: infectious diseases Referred by:: Reason for Consultation:: sepsis - History of Present Illness History of Present Illness: 83 year old male with a PMH of ESRD HTN, CAD , IDDM was send from [facility] for ams,here the patient just moans and graons he is awake but no real history available which is taken from the records according to the notes patient had dialysis yesterday which he tolerated without any issues he was hypotensive and hypoxic this morning prior to coming to the hospital. currently clinically he looks stable but is groaning a lot but when asked what is bothering him he is not able to answer any questions his baseline mental status has been ok before patient received abx in the emergency room he does groan when his abd is touched - History Source History Provided By: Medical Record Limitations to Obtaining History: Clinical Condition - Past Medical History Cardio/Vascular: Yes: CAD, HTN, Hyperlipdemia Gastrointestinal: Yes: Constipation Renal/: Yes: Renal Failure, Hemodialysis - Past Surgical History Past Surgical History: Yes: CABG - Alcohol/Substance Use Hx Alcohol Use: No - Smoking History Smoking history: Unknown if ever smoked Have you smoked in the past 12 months: No Home Medications - Allergies Allergies/Adverse Reactions: Allergies Allergy/AdvReac Type Severity Reaction Status Date / Time No Known Allergies Allergy Verified 09/23/18 06:37 - Home Medications Home Medications: Ambulatory Orders Acetaminophen [Tylenol] 650 mg PO Q6H PRN 07/19/18 Amlodipine Besylate [Norvasc -] 10 mg PO DAILY 07/19/18 Aspirin [Ecotrin] 325 mg PO DAILY 07/19/18 Atorvastatin Ca [Lipitor] 20 mg PO HS 07/19/18 Calcium Acetate [Phoslo -] 667 mg PO TIDCM 07/19/18 Carvedilol [Coreg -] 12.5 mg PO BID 07/19/18 Clonidine Patch [Catapres Tts Patch -] 0.2 mg TD MCMULLEN 07/19/18 Docusate Sodium [Colace -] 100 mg PO BID 07/19/18 Ergocalciferol [Vitamin D2] 50,000 unit PO MCMULLEN 07/19/18 Folic Acid - 1 mg PO DAILY 07/19/18 Metoprolol Tartrate [Lopressor -] 50 mg PO BID 07/19/18 hydrALAZINE HCL [Apresoline -] 25 mg PO TID 07/19/18 Gel Dressing [Dermasyn] 85 gm TP BID 09/23/18 Insulin Aspart [Novolog] 100 unit SQ ASDIR 09/23/18 Review of Systems Unable to obtain ROS, reason: unable to obtain Physical Exam Vital Signs: Vital Signs Temperature 100.1 F H 09/23/18 09:26 Pulse Rate 94 H 09/23/18 11:06 Respiratory Rate 16 09/23/18 11:06 Blood Pressure 141/58 L 09/23/18 11:06 O2 Sat by Pulse Oximetry (%) 98 09/23/18 11:06 Constitutional: Yes: Moderate Distress, Other (groaning) Neck: Yes: Supple, Trachea Midline Cardiovascular: Yes: Regular Rate and Rhythm Respiratory: Yes: Regular, Other (decreased air entry into lower lobes) Gastrointestinal: Yes: Hypoactive Bowel Sounds, Tenderness (generalized). No: Tenderness, Rebound Musculoskeletal: Yes: WNL Extremities: Yes: Other Neurological: Yes: Alert, Other Labs: CBC, BMP 09/23/18 08:00 09/23/18 08:00 Assessment/Plan Problem List - Problems (1) Sepsis associated hypotension Code(s): A41.9 - SEPSIS, UNSPECIFIED ORGANISM; I95.9 - HYPOTENSION, UNSPECIFIED (2) Altered mental status Code(s): R41.82 - ALTERED MENTAL STATUS, UNSPECIFIED (3) CAD (coronary artery disease) Code(s): I25.10 - ATHSCL HEART DISEASE OF [place] CORONARY ARTERY W/O ANG PCTRS Qualifiers: Coronary Disease-Associated Artery/Lesion type: [place] artery [place] vs. transplanted heart: [place] heart Associated angina: without angina Qualified Code(s): I25.10 - Atherosclerotic heart disease of [place] coronary artery without angina pectoris (4) ESRD (end stage renal disease) Code(s): N18.6 - END STAGE RENAL DISEASE (5) Fever Code(s): R50.9 - FEVER, UNSPECIFIED Qualifiers: Fever type: unspecified Qualified Code(s): R50.9 - Fever, unspecified (6) S/P CABG (coronary artery bypass graft) Code(s): Z95.1 - PRESENCE OF AORTOCORONARY BYPASS GRAFT 7 abd pain 8 leukocytosis plan will continue abx monitor wbc monitor for fevers await cx reoport ct scan of the abd hydration monitor bp rest as per the team
[2018-09-23] MEDS ORDERED: morphine CARPU-JECT 4 MG/1 ML DISP.SYRIN IVPUSH ONE (13:50)
[2018-09-23] MEDS ORDERED: morphine SULFATE 4 MG/ML VIAL ONE (14:00)
--- NOTE | 2018-09-23 14:27 | CONSULT ---
Consult Consult Specialty:: Nephrology Reason for Consultation:: ESRD - History of Present Illness Chief Complaint: sent in for altered mentation History of Present Illness: Pt is a 63 year old male with pmhx of ESRD (TTS), HTN, CAD, CABG, and DM who was sent in for altered mental status. Pt was moaning overnight. He is now awake but not able to give much history. He was found to be hypotensive and is admitted for sepsis. I was called to evaluate him as he is on HD. His last dialysis was yesterday. I did call the HD unit and confirm. He denies shortness of breath. - History Source History Provided By: Medical Record - Past Medical History Cardio/Vascular: Yes: CAD, HTN, Hyperlipdemia Gastrointestinal: Yes: Constipation Renal/: Yes: Renal Failure, Hemodialysis - Past Surgical History Past Surgical History: Yes: CABG - Alcohol/Substance Use Hx Alcohol Use: No - Smoking History Smoking history: Unknown if ever smoked Have you smoked in the past 12 months: No Home Medications - Allergies Allergies/Adverse Reactions: Allergies Allergy/AdvReac Type Severity Reaction Status Date / Time No Known Allergies Allergy Verified 09/23/18 06:37 - Home Medications Home Medications: Ambulatory Orders Acetaminophen [Tylenol] 650 mg PO Q6H PRN 07/19/18 Amlodipine Besylate [Norvasc -] 10 mg PO DAILY 07/19/18 Aspirin [Ecotrin] 325 mg PO DAILY 07/19/18 Atorvastatin Ca [Lipitor] 20 mg PO HS 07/19/18 Calcium Acetate [Phoslo -] 667 mg PO TIDCM 07/19/18 Carvedilol [Coreg -] 12.5 mg PO BID 07/19/18 Clonidine Patch [Catapres Tts Patch -] 0.2 mg TD OLIVIER 07/19/18 Docusate Sodium [Colace -] 100 mg PO BID 07/19/18 Ergocalciferol [Vitamin D2] 50,000 unit PO OLIVIER 07/19/18 Folic Acid - 1 mg PO DAILY 07/19/18 Metoprolol Tartrate [Lopressor -] 50 mg PO BID 07/19/18 hydrALAZINE HCL [Apresoline -] 25 mg PO TID 07/19/18 Gel Dressing [Dermasyn] 85 gm TP BID 09/23/18 Insulin Aspart [Novolog] 100 unit SQ ASDIR 09/23/18 Family Disease History - Family Disease History Family History: Unable to Obtain Review of Systems - Review of Systems Constitutional: reports: Malaise Eyes: reports: No Symptoms HENT: reports: No Symptoms Cardiovascular: reports: No Symptoms Gastrointestinal: reports: No Symptoms Genitourinary: reports: No Symptoms Musculoskeletal: reports: Muscle Weakness Neurological: reports: Change in LOC Physical Exam Vital Signs: Vital Signs Temperature 98.6 F 09/23/18 14:07 Pulse Rate 78 09/23/18 14:07 Respiratory Rate 16 09/23/18 14:07 Blood Pressure 161/97 09/23/18 14:07 O2 Sat by Pulse Oximetry (%) 97 09/23/18 14:07 Constitutional: Yes: Calm, Cachectic Eyes: Yes: Conjunctiva Clear HENT: Yes: Atraumatic Cardiovascular: Yes: S1, S2 Respiratory: Yes: CTA Bilaterally Gastrointestinal: Yes: Soft Musculoskeletal: Yes: Muscle Weakness Edema: No Neurological: Yes: Confusion Labs: CBC, BMP 09/23/18 08:00 09/23/18 08:00 Laboratory Tests 09/23/18 09/23/18 08:00 08:00 WBC 13.0 H Hgb 10.1 L Sodium 134 L Potassium 3.4 L Chloride 95 L BUN 48 H Creatinine 6.8 H Random Glucose 166 H Imaging - Results Chest X-ray: Report Reviewed Problem List - Problems (1) ESRD (end stage renal disease) Code(s): N18.6 - END STAGE RENAL DISEASE Assessment/Plan Current Medications Generic Name Dose Route Start Last Admin Trade Name Freq PRN Reason Stop Dose Admin Acetaminophen 650 mg 09/23/18 12:39 Tylenol - PO Q6H PRN pain,fever Aspirin 325 mg 09/24/18 10:00 Ecotrin - PO DAILY BRAD Atorvastatin Calcium 20 mg 09/23/18 22:00 Lipitor - PO HS BRAD Calcium Acetate 667 mg 09/23/18 17:30 Phoslo - PO TIDCM BRAD Docusate Sodium 100 mg 09/23/18 22:00 Colace - PO BID BRAD Ergocalciferol 50,000 unit 09/25/18 10:00 Drisdol - PO Olivier@1000 BRAD Folic Acid 1 mg 09/24/18 10:00 Folic Acid - PO DAILY BRAD Heparin Sodium (Porcine) 5,000 unit 09/23/18 22:00 Heparin - SQ BID BRAD Piperacillin Sod/Tazobactam 50 mls @ 100 mls/hr 09/23/18 18:00 Sod 2.25 gm/ Dextrose IVPB Q8H-IV BRAD Protocol Insulin Aspart 1 vial 09/23/18 16:30 Novolog Vial Sliding Scale - SQ BIDAC BRAD Protocol Impression 1. ESRD 2. altered mental status 3. PNA 4. sepsis 5. anemia 6. CAD 7. hx CABG 8. DM 9. HLD Plan - cont abx - HD in am - monitor wbc - follow cultures - hold bp meds as he is hypotensive - HD 3:30 permacath 2 k bath heprin 2000 bolus and 1000 maintenance, abf 400, kulwant 1 mcg. Pt did get aranesp 40 mcg yesterday - will follow pt Dr Siu
[2018-09-23] MEDS ORDERED: SODIUM CHLORIDE 250 ML IV PRN (14:36)
[2018-09-23] MEDS: ACETAMINOPHEN 325 MG TABLET (FP) PO PRN ×2 (15:03→22:38)
[2018-09-23] MEDS ORDERED: DEXTROSE 5%-WATER - 50 ML IVPB ONE (16:37)
[2018-09-23] MEDS ORDERED: PIPERACILLIN/TAZOBACTAM 2.25 GM VIAL IVPB ONE (16:37)
[2018-09-23] MEDS: INSULIN SLIDING SCALE (NOVOLOG) 1 VIAL SQ SCH (17:02)
[2018-09-23] MEDS: CALCIUM ACETATE 667 MG CAPSULE (FP) PO SCH (17:06)
[2018-09-23] MEDS: PIPERACILLIN/TAZOB 2.25 GM 2.25 GM in DEXTROSE 5%-WATER - 50 ML IVPB SCH (17:06)
--- NOTE | 2018-09-23 17:07 | PN ---
Progress Note (short form) - Note Progress Note: Vascular Surgery Pt seen and examined. Dressing removed from right IJ permacath site Site looks clean, no erythema, PC is in place. Does not look infected. Will await cultures. Pt with fevers, with unknown source currently. Jared farr DO
[2018-09-23] MEDS ORDERED: SODIUM CHLORIDE 250 ML IV ONE ×2 (17:15→23:45)
[2018-09-23] MEDS ORDERED: [UNRECOGNIZED DRUG - OTHER] TP SCH (22:00)
[2018-09-23] MEDS: ATORVASTATIN CA 20 MG TABLET (FP) PO SCH ×2 (22:39→23:00)
[2018-09-23] MEDS: HEPARIN NA (PORCINE) 5,000 UNITS/ML 1ML VIAL SQ SCH (22:39)
[2018-09-23] MEDS: DOCUSATE SODIUM 100 MG CAPSULE (FP) PO SCH (22:42)
[2018-09-24] MEDS ORDERED: PIPERACILLIN/TAZOBACTAM 2.25 GM VIAL IVPB ONE ×3 (00:08→15:59)
[2018-09-24] MEDS ORDERED: DEXTROSE 5%-WATER - 50 ML IVPB ONE ×3 (00:08→16:00)
[2018-09-24] MEDS: PIPERACILLIN/TAZOB 2.25 GM 2.25 GM in DEXTROSE 5%-WATER - 50 ML IVPB SCH ×3 (01:01→17:05)
[2018-09-24] MEDS: INSULIN SLIDING SCALE (NOVOLOG) 1 VIAL SQ SCH ×2 (06:41→16:29)
[2018-09-24 08:13] LABS: BASO % 0.1 % (0-2.0); EOS % 0.4 % (0-4.5); HEMATOCRIT 29.4 % (35.4-49); HEMOGLOBIN 9.8 GM/dL (11.7-16.9); LYMPH % 3.2 % (8-40); MCH 30.3 pg (25.7-33.7); MCHC 33.6 g/dl (32.0-35.9); MEAN CELL VOLUME 90.2 fl (80-96); MEAN PLT VOLUME 8.3 fl (7.5-11.1); MONO % 10.9 % (3.8-10.2); NEUT % 85.4 % (42.8-82.8); PLATELET COUNT 290 K/MM3 (134-434); RBC 3.26 M/mm3 (4.00-5.60); RDW 16.9 % (11.9-15.9)
[2018-09-24] MEDS: CALCIUM ACETATE 667 MG CAPSULE (FP) PO SCH ×3 (08:43→17:03)
[2018-09-24 09:07] LABS: ALBUMIN 2.4 g/dl (3.4-5.0); ALK PHOS 127 U/L (45-117); ANION GAP 17 MMOL/L (8-16); BILIRUBIN,TOTAL 0.6 mg/dL (0.2-1); BLOOD UREA NITROGEN 61 mg/dL (7-18); CHLORIDE 96 mmol/L (98-107); CO2 21 mmol/L (21-32); GLUCOSE,RANDOM 174 mg/dL (74-106); POTASSIUM 3.5 mmol/L (3.5-5.1); SGOT/AST 18 U/L (15-37); SGPT/ALT 17 U/L (13-61); SODIUM 134 mmol/L (136-145); TOT PROT 5.9 g/dl (6.4-8.2)
[2018-09-24 09:57] LABS: CREATININE 8.5 mg/dL (0.55-1.3)
--- NOTE | 2018-09-24 10:03 | PN ---
Progress Note, Physician History of Present Illness: patient continues to have abd pain more awake and alert wbc has increased spiked fever - Current Medication List Current Medications: Active Medications Acetaminophen (Tylenol -) 650 mg PO Q6H PRN PRN Reason: pain,fever Last Admin: 09/23/18 15:03 Dose: 650 mg Aspirin (Ecotrin -) 325 mg PO DAILY [facility] Atorvastatin Calcium (Lipitor -) 20 mg PO HS [facility] Last Admin: 09/23/18 23:00 Dose: Not Given Calcium Acetate (Phoslo -) 667 mg PO TIDCM [facility] Last Admin: 09/24/18 08:43 Dose: 667 mg Docusate Sodium (Colace -) 100 mg PO BID [facility] Last Admin: 09/23/18 22:42 Dose: Not Given Ergocalciferol (Drisdol -) 50,000 unit PO Olivier@1000 [facility] Folic Acid (Folic Acid -) 1 mg PO DAILY [facility] Heparin Sodium (Porcine) (Heparin -) 5,000 unit SQ BID [facility] Last Admin: 09/23/18 22:39 Dose: 5,000 unit Heparin Sodium (Porcine) (Heparin -) 2,000 unit IVPUSH ONCE ONE Stop: 09/24/18 14:37 Heparin Sodium (Porcine) (Heparin -) 1,000 unit IVPUSH Q1H [facility] Piperacillin Sod/Tazobactam (Sod 2.25 gm/ Dextrose) 50 mls @ 100 mls/hr IVPB Q8H-IV [facility]; Protocol Last Admin: 09/24/18 09:01 Dose: 100 mls/hr Sodium Chloride (Normal Saline -) 250 mls @ 3,000 mls/hr IV PRN PRN PRN Reason: Hypotension during Dialysis Stop: 09/24/18 14:36 Insulin Aspart (Novolog Vial Sliding Scale -) 1 vial SQ BIDAC [facility]; Protocol Last Admin: 09/24/18 06:41 Dose: 5 units Paricalcitol (Zemplar -) 2 mcg IVPUSH ONCE ONE Stop: 09/24/18 14:37 - Objective Vital Signs: Vital Signs Temperature 98.3 F 09/24/18 06:00 Pulse Rate 86 09/24/18 06:00 Respiratory Rate 18 09/24/18 06:00 Blood Pressure 98/47 L 09/24/18 06:00 O2 Sat by Pulse Oximetry (%) 100 09/23/18 21:00 Constitutional: Yes: Calm, Mild Distress Cardiovascular: Yes: Regular Rate and Rhythm Respiratory: Yes: Regular, CTA Bilaterally Gastrointestinal: Yes: Hypoactive Bowel Sounds, Tenderness Musculoskeletal: Yes: WNL Neurological: Yes: Alert Psychiatric: Yes: Alert Labs: CBC, BMP 09/24/18 06:00 09/24/18 06:00 INR, PTT INR 1.13 (0.83-1.09) H 09/23/18 08:30 - ....Imaging Cat Scan: Report Reviewed, Image Reviewed Assessment/Plan Problem List - Problems (1) Sepsis associated hypotension Code(s): A41.9 - SEPSIS, UNSPECIFIED ORGANISM; I95.9 - HYPOTENSION, UNSPECIFIED (2) Altered mental status Code(s): R41.82 - ALTERED MENTAL STATUS, UNSPECIFIED (3) CAD (coronary artery disease) Code(s): I25.10 - ATHSCL HEART DISEASE OF [place] CORONARY ARTERY W/O ANG PCTRS Qualifiers: Coronary Disease-Associated Artery/Lesion type: [place] artery [place] vs. transplanted heart: [place] heart Associated angina: without angina Qualified Code(s): I25.10 - Atherosclerotic heart disease of [place] coronary artery without angina pectoris (4) ESRD (end stage renal disease) Code(s): N18.6 - END STAGE RENAL DISEASE (5) Fever Code(s): R50.9 - FEVER, UNSPECIFIED Qualifiers: Fever type: unspecified Qualified Code(s): R50.9 - Fever, unspecified (6) S/P CABG (coronary artery bypass graft) Code(s): Z95.1 - PRESENCE OF AORTOCORONARY BYPASS GRAFT 7 abd pain [address] scan seen--has mccabe colitis plan 1 continue zosyn 2 monitor fever consider keeping the pt npo hydration rest as per the team monitor fever
[2018-09-24] MEDS: DOCUSATE SODIUM 100 MG CAPSULE (FP) PO SCH ×2 (10:41→22:47)
[2018-09-24] MEDS: ASPIRIN 325 MG ENTERIC COATED TABLET (FP) PO SCH (10:41)
--- NOTE | 2018-09-24 10:41 | PN ---
Progress Note (short form) - Note Progress Note: RENAL Pt awake, but somewhat lethargic answers questions Last Vital Signs Temp Pulse Resp BP Pulse Ox 98.3 F 86 18 98/47 L 100 09/24/18 06:00 09/24/18 06:00 09/24/18 06:00 09/24/18 06:00 09/23/18 21:00 lungs clear cvs s1s2 rr permcath site not tender abd soft ext no edema, some tenderness skin has a small left heel ulcer CBC, BMP 09/24/18 06:00 09/24/18 06:00 Current Medications Generic Name Dose Route Start Last Admin Trade Name Freq PRN Reason Stop Dose Admin Acetaminophen 650 mg 09/23/18 12:39 09/23/18 15:03 Tylenol - PO 650 mg Q6H PRN Administration pain,fever Aspirin 325 mg 09/24/18 10:00 Ecotrin - PO DAILY [facility] Atorvastatin Calcium 20 mg 09/23/18 22:00 09/23/18 23:00 Lipitor - PO Not Given HS [facility] Calcium Acetate 667 mg 09/23/18 17:30 09/24/18 08:43 Phoslo - PO 667 mg TIDCM [facility] Administration Docusate Sodium 100 mg 09/23/18 22:00 09/23/18 22:42 Colace - PO Not Given BID [facility] Ergocalciferol 50,000 unit 09/25/18 10:00 Drisdol - PO Olivier@1000 [facility] Folic Acid 1 mg 09/24/18 10:00 Folic Acid - PO DAILY [facility] Heparin Sodium (Porcine) 5,000 unit 09/23/18 22:00 09/23/18 22:39 Heparin - SQ 5,000 unit BID [facility] Administration Heparin Sodium (Porcine) 2,000 unit 09/24/18 14:36 Heparin - IVPUSH 09/24/18 14:37 ONCE ONE Heparin Sodium (Porcine) 1,000 unit 09/24/18 14:45 Heparin - IVPUSH Q1H [facility] Piperacillin Sod/Tazobactam 50 mls @ 100 mls/hr 09/23/18 18:00 09/24/18 09:01 Sod 2.25 gm/ Dextrose IVPB 100 mls/hr Q8H-IV [facility] Administration Protocol Sodium Chloride 250 mls @ 3,000 mls/hr 09/23/18 14:36 Normal Saline - IV 09/24/18 14:36 PRN PRN Hypotension during Dialysis Dextrose/Sodium Chloride 1,000 mls @ 30 mls/hr 09/24/18 10:45 D5-Ns - IV ASDIR [facility] Insulin Aspart 1 vial 09/23/18 16:30 09/24/18 06:41 Novolog Vial Sliding Scale - SQ 5 units BIDAC [facility] Administration Protocol Paricalcitol 2 mcg 09/24/18 14:36 Zemplar - IVPUSH 09/24/18 14:37 ONCE ONE IMPRESSION esrd sepsis pancolitis diabets pleural effusion post cabg PLAN will attempt dialysis despite his hypotension does not appear to need to have his permcath removed, but will likely need to be removed iof he has gram positive cocci MV
[2018-09-24] MEDS: HEPARIN NA (PORCINE) 5,000 UNITS/ML 1ML VIAL SQ SCH ×2 (10:42→22:46)
[2018-09-24] MEDS: FOLIC ACID 1 MG TABLET (FP) PO SCH (10:42)
[2018-09-24] MEDS ORDERED: DEXTROSE 5%-NORMAL SALINE 1,000 ML IV SCH ×2 (10:45→12:50)
[2018-09-24 12:12] LABS: ANISOCYTOSIS 1+; MACROCYTOSIS 1+; PLATELET ESTIMATE NORMAL
[2018-09-24] MEDS: ALBUMIN HUMAN 25% 12.5 GM/50 ML VIAL IVPB SCH ×4 (12:20→14:45)
--- NOTE | 2018-09-24 12:50 | PN ---
Progress Note (short form) - Note Progress Note: Pt examined in dialysis And tender NPO No nausea Vital Signs - 24 hr 09/23/18 09/23/18 09/23/18 14:07 14:55 16:58 Temperature 98.6 F 101.5 F H 100 F H Pulse Rate 90 89 Pulse Rate [ 78 Left Apical] Respiratory 16 20 20 Rate Blood Pressure 150/78 74/40 L Blood Pressure 161/97 [Left Arm] O2 Sat by Pulse 97 Oximetry (%) 09/23/18 09/23/18 09/23/18 17:38 17:50 18:15 Temperature 100 F H 99.8 F H Pulse Rate 89 94 H Pulse Rate [ Left Apical] Respiratory 20 20 Rate Blood Pressure 74/40 L 129/73 Blood Pressure [Left Arm] O2 Sat by Pulse 94 L Oximetry (%) 09/23/18 09/23/18 09/24/18 21:00 21:36 02:00 Temperature 101 F H 99.7 F H Pulse Rate 99 H 88 Pulse Rate [ Left Apical] Respiratory 20 20 18 Rate Blood Pressure 96/58 L 65/40 L Blood Pressure [Left Arm] O2 Sat by Pulse 100 Oximetry (%) 09/24/18 09/24/18 09/24/18 06:00 09:00 09:10 Temperature 98.3 F 99.1 F Pulse Rate 86 82 Pulse Rate [ Left Apical] Respiratory 18 18 18 Rate Blood Pressure 98/47 L 93/47 L Blood Pressure [Left Arm] O2 Sat by Pulse 100 Oximetry (%) Current Medications Generic Name Dose Route Start Last Admin Trade Name Freq PRN Reason Stop Dose Admin Acetaminophen 650 mg 09/23/18 12:39 09/23/18 15:03 Tylenol - PO 650 mg Q6H PRN Administration pain,fever Aspirin 325 mg 09/24/18 10:00 09/24/18 10:41 Ecotrin - PO Not Given DAILY [facility] Atorvastatin Calcium 20 mg 09/23/18 22:00 09/23/18 23:00 Lipitor - PO Not Given HS [facility] Calcium Acetate 667 mg 09/23/18 17:30 09/24/18 12:10 Phoslo - PO Not Given TIDCM [facility] Docusate Sodium 100 mg 09/23/18 22:00 09/24/18 10:41 Colace - PO Not Given BID [facility] Ergocalciferol 50,000 unit 11/04/18 10:00 Drisdol - PO Olivier@1000 [facility] Folic Acid 1 mg 09/24/18 10:00 09/24/18 10:42 Folic Acid - PO Not Given DAILY [facility] Heparin Sodium (Porcine) 5,000 unit 09/23/18 22:00 09/24/18 10:42 Heparin - SQ 5,000 unit BID [facility] Administration Heparin Sodium (Porcine) 1,000 unit 09/24/18 14:45 Heparin - IVPUSH Q1H [facility] Heparin Sodium (Porcine) 2,000 unit 09/24/18 13:00 Heparin - IVPUSH 09/24/18 13:01 ONCE ONE Piperacillin Sod/Tazobactam 50 mls @ 100 mls/hr 09/23/18 18:00 09/24/18 09:01 Sod 2.25 gm/ Dextrose IVPB 100 mls/hr Q8H-IV [facility] Administration Protocol Sodium Chloride 250 mls @ 3,000 mls/hr 09/23/18 14:36 Normal Saline - IV 09/24/18 14:36 PRN PRN Hypotension during Dialysis Dextrose/Sodium Chloride 1,000 mls @ 40 mls/hr 09/24/18 12:50 D5-Ns - IV ASDIR [facility] Insulin Aspart 1 vial 09/23/18 16:30 09/24/18 06:41 Novolog Vial Sliding Scale - SQ 5 units BIDAC [facility] Administration Protocol Paricalcitol 2 mcg 09/24/18 13:00 Zemplar - IVPUSH 09/24/18 13:01 ONCE ONE Laboratory Results - last 24 hr 09/23/18 09/23/18 09/24/18 16:53 22:42 06:00 WBC 23.0 H RBC 3.26 L Hgb 9.8 L Hct 29.4 L MCV 90.2 MCH 30.3 MCHC 33.6 RDW 16.9 H Plt Count 290 MPV 8.3 Absolute Neuts (auto) 19.6 H Neutrophils % 85.4 H Neutrophils % (Manual) 86.7 H D Band Neutrophils % 0.0 Lymphocytes % 3.2 L D Lymphocytes % (Manual) 2.1 L D Monocytes % 10.9 H Monocytes % (Manual) 10 Eosinophils % 0.4 Eosinophils % (Manual) 0.0 D Basophils % 0.1 Basophils % (Manual) 1.0 Myelocytes % (Man) 0 Promyelocytes % (Man) 0 Blast Cells % (Manual) 0 Nucleated RBC % 0 Metamyelocytes 0 Hypochromia 0 Platelet Estimate Normal Polychromasia 0 Poikilocytosis 0 Anisocytosis 1+ Microcytosis 0 Macrocytosis 1+ Sodium Potassium Chloride Carbon Dioxide Anion Gap BUN Creatinine Creat Clearance w eGFR POC Glucometer 174 145 Random Glucose Calcium Total Bilirubin AST ALT Alkaline Phosphatase Total Protein Albumin 09/24/18 09/24/18 06:00 06:38 WBC RBC Hgb Hct MCV MCH MCHC RDW Plt Count MPV Absolute Neuts (auto) Neutrophils % Neutrophils % (Manual) Band Neutrophils % Lymphocytes % Lymphocytes % (Manual) Monocytes % Monocytes % (Manual) Eosinophils % Eosinophils % (Manual) Basophils % Basophils % (Manual) Myelocytes % (Man) Promyelocytes % (Man) Blast Cells % (Manual) Nucleated RBC % Metamyelocytes Hypochromia Platelet Estimate Polychromasia Poikilocytosis Anisocytosis Microcytosis Macrocytosis Sodium 134 L Potassium 3.5 Chloride 96 L Carbon Dioxide 21 Anion Gap 17 H BUN 61 H Creatinine 8.5 H* Creat Clearance w eGFR 6.43 POC Glucometer 203 Random Glucose 174 H Calcium 8.0 L Total Bilirubin 0.6 AST 18 ALT 17 Alkaline Phosphatase 127 H Total Protein 5.9 L Albumin 2.4 L s1 S2 RRR Lungs decreased And- soft , tender+ND No edema PLAN Pancolitis ESRD on HD -- iv antibiotics -- stool studies -- spoke with ID and GI -- NPO -- hydrate - mild- as pt is on dilaysis -- BP is low-- receiving albumin in HD Problem List - Problems (1) Pancolitis Code(s): K51.00 - ULCERATIVE (CHRONIC) PANCOLITIS WITHOUT COMPLICATIONS (2) Altered mental status Code(s): R41.82 - ALTERED MENTAL STATUS, UNSPECIFIED (3) Sepsis associated hypotension Code(s): A41.9 - SEPSIS, UNSPECIFIED ORGANISM; I95.9 - HYPOTENSION, UNSPECIFIED (4) Acute on chronic diastolic heart failure Code(s): I50.33 - ACUTE ON CHRONIC DIASTOLIC (CONGESTIVE) HEART FAILURE (5) CAD (coronary artery disease) Code(s): I25.10 - ATHSCL HEART DISEASE OF [place] CORONARY ARTERY W/O ANG PCTRS Qualifiers: Coronary Disease-Associated Artery/Lesion type: [place] artery [place] vs. transplanted heart: [place] heart Associated angina: without angina Qualified Code(s): I25.10 - Atherosclerotic heart disease of [place] coronary artery without angina pectoris (6) ESRD (end stage renal disease) Code(s): N18.6 - END STAGE RENAL DISEASE
[2018-09-24] MEDS ORDERED: SODIUM CHLORIDE 250 ML IV PRN (12:52)
[2018-09-24] MEDS: HEPARIN NA (PORCINE) 5,000 UNITS/ML 1ML VIAL IVPUSH SCH ×3 (13:00→15:19)
[2018-09-24] MEDS ORDERED: HEPARIN NA (PORCINE) 5,000 UNITS/ML 1ML VIAL IVPUSH ONE ×2 (13:00→14:36)
[2018-09-24] MEDS ORDERED: PARICALCITOL 5 MCG/ML VIAL IVPUSH ONE (13:00)
[2018-09-24] MEDS ORDERED: HEPARIN NA (PORCINE) 5,000 UNITS/ML 1ML VIAL IVPUSH SCH (14:45)
--- NOTE | 2018-09-24 15:51 | CON.GI ---
Consult Consult Specialty:: Gastroenterology Referred by:: Dr. Sybil Elizabeth Reason for Consultation:: Pancolitis - History of Present Illness Chief Complaint: Moaning with pain History of Present Illness: 63M is found to have shaking chills and moaning due to crampy abdominal pain. He just had a very pungent loose BM and CT reveals pancolitis. His WBC has risen from 13 to 23K . He was transferred from [facility] for altered mental status and hypotension. He gives only 1 word responses and does not want to converse with me. He has just completed dialysis. He is on Zosyn. He had a fever to 101 yesterday. - History Source History Provided By: Patient, Medical Record Limitations to Obtaining History: Poor Historian - Past Medical History Cardio/Vascular: Yes: CAD (s/p CABG), HTN, Hyperlipdemia Gastrointestinal: Yes: Constipation Renal/: Yes: Renal Failure, Hemodialysis - Past Surgical History Past Surgical History: Yes: CABG - Alcohol/Substance Use Hx Alcohol Use: No - Smoking History Smoking history: Unknown if ever smoked Have you smoked in the past 12 months: No Aproximately how many cigarettes per day: 0 - Social History Usual Living Arrangement: Residential ADL: Support Services Home Medications - Allergies Allergies/Adverse Reactions: Allergies Allergy/AdvReac Type Severity Reaction Status Date / Time No Known Allergies Allergy Verified 09/23/18 06:37 - Home Medications Home Medications: Ambulatory Orders Acetaminophen [Tylenol] 650 mg PO Q6H PRN 07/19/18 Amlodipine Besylate [Norvasc -] 10 mg PO DAILY 07/19/18 Aspirin [Ecotrin] 325 mg PO DAILY 07/19/18 Atorvastatin Ca [Lipitor] 20 mg PO HS 07/19/18 Calcium Acetate [Phoslo -] 667 mg PO TIDCM 07/19/18 Carvedilol [Coreg -] 12.5 mg PO BID 07/19/18 Clonidine Patch [Catapres Tts Patch -] 0.2 mg TD MCMULLEN 07/19/18 Docusate Sodium [Colace -] 100 mg PO BID 07/19/18 Ergocalciferol [Vitamin D2] 50,000 unit PO MCMULLEN 07/19/18 Folic Acid - 1 mg PO DAILY 07/19/18 Metoprolol Tartrate [Lopressor -] 50 mg PO BID 07/19/18 hydrALAZINE HCL [Apresoline -] 25 mg PO TID 07/19/18 Gel Dressing [Dermasyn] 85 gm TP BID 09/23/18 Insulin Aspart [Novolog] 100 unit SQ ASDIR 09/23/18 Family Disease History - Family Disease History Family History: Unable to Obtain Review of Systems Unable to obtain ROS, reason: refusing to converse Physical Exam-GI Vital Signs: Vital Signs Temperature 99 F 09/24/18 15:06 Pulse Rate 100 H 09/24/18 15:06 Respiratory Rate 18 09/24/18 15:06 Blood Pressure 140/57 L 09/24/18 15:06 O2 Sat by Pulse Oximetry (%) 100 09/24/18 09:00 CBC,CMP WBC 23.0 K/mm3 (4.0-10.0) H 09/24/18 06:00 RBC 3.26 M/mm3 (4.00-5.60) L 09/24/18 06:00 Hgb 9.8 GM/dL (11.7-16.9) L 09/24/18 06:00 Hct 29.4 % (35.4-49) L 09/24/18 06:00 MCV 90.2 fl (80-96) 09/24/18 06:00 MCH 30.3 pg (25.7-33.7) 09/24/18 06:00 MCHC 33.6 g/dl (32.0-35.9) 09/24/18 06:00 RDW 16.9 % (11.9-15.9) H 09/24/18 06:00 Plt Count 290 K/MM3 (134-434) 09/24/18 06:00 MPV 8.3 fl (7.5-11.1) 09/24/18 06:00 Absolute Neuts (auto) 19.6 K/mm3 (1.5-8.0) H 09/24/18 06:00 Neutrophils % 85.4 % (42.8-82.8) H 09/24/18 06:00 Neutrophils % (Manual) 86.7 % (42.8-82.8) H D 09/24/18 06:00 Band Neutrophils % 0.0 % 09/24/18 06:00 Lymphocytes % 3.2 % (8-40) L D 09/24/18 06:00 Lymphocytes % (Manual) 2.1 % (8-40) L D 09/24/18 06:00 Monocytes % 10.9 % (3.8-10.2) H 09/24/18 06:00 Monocytes % (Manual) 10 % (3.8-10.2) 09/24/18 06:00 Eosinophils % 0.4 % (0-4.5) 09/24/18 06:00 Eosinophils % (Manual) 0.0 % (0-4.5) D 09/24/18 06:00 Basophils % 0.1 % (0-2.0) 09/24/18 06:00 Basophils % (Manual) 1.0 % (0-2.0) 09/24/18 06:00 Myelocytes % (Man) 0 % (0-2) 09/24/18 06:00 Promyelocytes % (Man) 0 % (0-2) 09/24/18 06:00 Blast Cells % (Manual) 0 % (0-0) 09/24/18 06:00 Nucleated RBC % 0 % (0-0) 09/24/18 06:00 Metamyelocytes 0 % (0-2) 09/24/18 06:00 Hypochromia 0 09/24/18 06:00 Platelet Estimate Normal 09/24/18 06:00 Polychromasia 0 09/24/18 06:00 Poikilocytosis 0 09/24/18 06:00 Anisocytosis 1+ 09/24/18 06:00 Microcytosis 0 09/24/18 06:00 Macrocytosis 1+ 09/24/18 06:00 Sodium 134 mmol/L (136-145) L 09/24/18 06:00 Potassium 3.5 mmol/L (3.5-5.1) 09/24/18 06:00 Chloride 96 mmol/L (98-107) L 09/24/18 06:00 Carbon Dioxide 21 mmol/L (21-32) 09/24/18 06:00 Anion Gap 17 MMOL/L (8-16) H 09/24/18 06:00 BUN 61 mg/dL (7-18) H 09/24/18 06:00 Creatinine 8.5 mg/dL (0.55-1.3) H* 09/24/18 06:00 Creat Clearance w eGFR 6.43 (>60) 09/24/18 06:00 POC Glucometer 203 UNITS (80-120) 09/24/18 06:38 Random Glucose 174 mg/dL (74-106) H 09/24/18 06:00 Lactic Acid 1.0 mmol/L (0.4-2.0) 09/23/18 08:30 Calcium 8.0 mg/dL (8.5-10.1) L 09/24/18 06:00 Magnesium 2.4 mg/dL (1.8-2.4) 09/23/18 08:00 Total Bilirubin 0.6 mg/dL (0.2-1) 09/24/18 06:00 AST 18 U/L (15-37) 09/24/18 06:00 ALT 17 U/L (13-61) 09/24/18 06:00 Alkaline Phosphatase 127 U/L (45-117) H 09/24/18 06:00 Ammonia < 10.00 umol/L (11-32) L 09/23/18 08:00 Troponin I < 0.02 ng/ml (0.00-0.05) 09/23/18 08:00 Total Protein 5.9 g/dl (6.4-8.2) L 09/24/18 06:00 Albumin 2.4 g/dl (3.4-5.0) L 09/24/18 06:00 Vitamin B12 603 pg/ml (193-986) 09/23/18 08:00 TSH 1.97 uIU/ml (0.358-3.74) 09/23/18 08:00 Current Medications Generic Name Dose Route Start Last Admin Trade Name Freq PRN Reason Stop Dose Admin Acetaminophen 650 mg 09/23/18 12:39 09/23/18 15:03 Tylenol - PO 650 mg Q6H PRN Administration pain,fever Aspirin 325 mg 09/24/18 10:00 09/24/18 10:41 Ecotrin - PO Not Given DAILY [facility] Atorvastatin Calcium 20 mg 09/23/18 22:00 09/23/18 23:00 Lipitor - PO Not Given HS [facility] Calcium Acetate 667 mg 09/23/18 17:30 09/24/18 12:10 Phoslo - PO Not Given TIDCM [facility] Docusate Sodium 100 mg 09/23/18 22:00 09/24/18 10:41 Colace - PO Not Given BID [facility] Ergocalciferol 50,000 unit 09/25/18 10:00 Drisdol - PO Mcmullen@1000 [facility] Folic Acid 1 mg 09/24/18 10:00 09/24/18 10:42 Folic Acid - PO Not Given DAILY [facility] Heparin Sodium (Porcine) 5,000 unit 09/23/18 22:00 09/24/18 10:42 Heparin - SQ 5,000 unit BID [facility] Administration Piperacillin Sod/Tazobactam 50 mls @ 100 mls/hr 09/23/18 18:00 09/24/18 09:01 Sod 2.25 gm/ Dextrose IVPB 100 mls/hr Q8H-IV [facility] Administration Protocol Dextrose/Sodium Chloride 1,000 mls @ 40 mls/hr 09/24/18 12:50 09/24/18 14:55 D5-Ns - IV 40 mls/hr ASDIR [facility] Administration Sodium Chloride 250 mls @ 3,000 mls/hr 09/24/18 12:52 Normal Saline - IV PRN PRN Hypotension during Dialysis Insulin Aspart 1 vial 09/23/18 16:30 09/24/18 06:41 Novolog Vial Sliding Scale - SQ 5 units BIDAC [facility] Administration Protocol Vancomycin HCl 125 mg 09/24/18 18:00 Vancomycin Oral Solution PO Q6HPO [facility] Constitutional: Yes: Moderate Distress, Other (having rigors) Eyes: Yes: Conjunctiva Clear HENT: Yes: Atraumatic Neck: Yes: Trachea Midline Cardiovascular: Yes: Regular Rate and Rhythm, Other (healed median sternotomy incision, right chest catheter) Respiratory: Yes: CTA Bilaterally Gastrointestinal Inspection: Yes: Other (no incisions) ...Auscultate: Yes: Hyperactive Bowel Sounds ...Palpate: Yes: Tenderness (diffuse nonlocalizing tenderness, no rebound) ...Rectal Exam: Yes: Guaiac Positive (loose pungent smellin loose brown stool is G positive, 2+ prostate) Edema: No Labs: CBC, BMP 09/24/18 06:00 09/24/18 06:00 INR, PTT INR 1.13 (0.83-1.09) H 09/23/18 08:30 Imaging - Results Cat Scan: Report Reviewed (Chivo Kay Name: [facility] Phys: Kenia Croft RESIDENT : 1955 Age: 63 Sex: M [facility] Acct: [id number] Loc: [id number] [facility] Exam Date: 09/23/18 Status: [place] [address] Unit Number: [id number] EXAM#: TYPE/EXAM: RESULT: [id number] CT/ABDOMEN PELVIS CT W/O CONTR Abdomen and pelvis CT (without contrast) Clinical information given: TTP, pain Multiplanar imaging was performed. As requested no intravenous or enteric contrast was administered. No prior abdomen/pelvic CT studies are available at this facility for direct comparison. Continuous concentric wall edema is seen involving the colon from the level of the cecum through the sigmoid region. There is probable mild rectal involvement. Mild pericolonic edema is noted. A trace amount of free fluid is noted within the paracolic spaces bilaterally. No evidence of pneumoperitoneum or bowel obstruction. No gross noncontrast small bowel pathology is identified. Atherosclerotic vascular calcifications are seen which are more prominent then would be expected for the patient's chronologic age. The right kidney is somewhat small in size measuring 8 cm in length. The left kidney measures 9 cm. Small right hepatic lobe calcification probably representing a granuloma. The spleen, pancreas, gallbladder, and adrenal glands demonstrate no discrete noncontrast pathology. There is no aortic aneurysm. No obvious lymphadenopathy is noted. Calcification of the vas deferens is seen bilaterally which is noted with increased incidence in a history of diabetes. Correlate clinically. In comparison to a chest CT exam of 09/08/2018 note is made of a small to moderate right pleural effusion which appears mildly diminished in size. As on the prior exam right posterior basilar opacity is seen consistent with atelectasis and/or infiltrate. Correlate clinically. Status post median sternotomy. Epicardial pacer wires are seen in place. IMPRESSION: Acute pancolitis is identified as noted above. Prominent atherosclerotic vascular calcifications. Mild right renal atrophy. Small to moderate right pleural effusion which appears somewhat improved in comparison to a chest CT study of 09/08/2018. Persistent right posterior basilar opacity consistent with atelectasis and/ or infiltrate. Reported By: Jag Marmolejo MD 09/23/181626 Technologist: Gustavo Billings Transcribed Date/Time: 09/23/181626 [employer]: Jag Marmolejo Printed Date/Time: By: Signed by: Jag Marmolejo Signed on: Sep-2018 16:29) Problem List - Problems (1) Pancolitis Assessment/Plan: Given the severity of pain, leucocytosis and CT findings C diff colitis is so strongly suspected that isolation will be initiated and vancomycin will be started. Will increase IV fluids and keep NPO Code(s): K51.00 - ULCERATIVE (CHRONIC) PANCOLITIS WITHOUT COMPLICATIONS (2) Diarrhea Code(s): R19.7 - DIARRHE[place], UNSPECIFIED (3) Occult blood in stools Code(s): R19.5 - OTHER FECAL ABNORMALITIES (4) Altered mental status Code(s): R41.82 - ALTERED MENTAL STATUS, UNSPECIFIED (5) ESRD (end stage renal disease) Code(s): N18.6 - END STAGE RENAL DISEASE (6) Fever Code(s): R50.9 - FEVER, UNSPECIFIED Qualifiers: Fever type: unspecified Qualified Code(s): R50.9 - Fever, unspecified (7) Pleural effusion due to CHF (congestive heart failure) Code(s): I50.9 - HEART FAILURE, UNSPECIFIED (8) S/P CABG (coronary artery bypass graft) Code(s): Z95.1 - PRESENCE OF AORTOCORONARY BYPASS GRAFT
[2018-09-24] MEDS: DEXTROSE 5%-NORMAL SALINE 1,000 ML IV SCH (16:18)
[2018-09-24] MEDS: VANCOMYCIN 250 MG/5 ML ORAL SOLUTION PO SCH (17:24)
[2018-09-24] MEDS ORDERED: ACETAMINOPHEN 1000 MG/100 ML VIAL (NON FORMULARY) IVPB ONE (18:15)
[2018-09-24] MEDS: ATORVASTATIN CA 20 MG TABLET (FP) PO SCH (22:48)
[2018-09-25] MEDS: VANCOMYCIN 250 MG/5 ML ORAL SOLUTION PO SCH ×5 (00:01→23:00)
[2018-09-25] MEDS ORDERED: PIPERACILLIN/TAZOBACTAM 2.25 GM VIAL IVPB ONE ×2 (01:04→09:17)
[2018-09-25] MEDS ORDERED: DEXTROSE 5%-WATER - 50 ML IVPB ONE ×2 (01:04→09:17)
[2018-09-25] MEDS: PIPERACILLIN/TAZOB 2.25 GM 2.25 GM in DEXTROSE 5%-WATER - 50 ML IVPB SCH ×2 (01:07→10:25)
[2018-09-25] MEDS: DEXTROSE 5%-NORMAL SALINE 1,000 ML IV SCH ×2 (04:59→18:06)
[2018-09-25] MEDS: INSULIN SLIDING SCALE (NOVOLOG) 1 VIAL SQ SCH ×2 (06:40→18:05)
[2018-09-25 07:55] LABS: BASO % 0.2 % (0-2.0); EOS % 0.7 % (0-4.5); HEMATOCRIT 29.8 % (35.4-49); HEMOGLOBIN 9.9 GM/dL (11.7-16.9); LYMPH % 4.5 % (8-40); MCH 29.8 pg (25.7-33.7); MCHC 33.3 g/dl (32.0-35.9); MEAN CELL VOLUME 89.6 fl (80-96); MEAN PLT VOLUME 8.1 fl (7.5-11.1); MONO % 6.8 % (3.8-10.2); NEUT % 87.8 % (42.8-82.8); PLATELET COUNT 346 K/MM3 (134-434); RBC 3.33 M/mm3 (4.00-5.60); RDW 16.6 % (11.9-15.9); WHITE BLOOD COUNT 16.4 K/mm3 (4.0-10.0)
[2018-09-25 08:51] LABS: ANION GAP 12 MMOL/L (8-16); BLOOD UREA NITROGEN 29 mg/dL (7-18); CALCIUM 8.5 mg/dL (8.5-10.1); CHLORIDE 104 mmol/L (98-107); CO2 26 mmol/L (21-32); CREATININE 5.5 mg/dL (0.55-1.3); GLUCOSE,RANDOM 213 mg/dL (74-106); POTASSIUM 3.2 mmol/L (3.5-5.1); SODIUM 142 mmol/L (136-145)
[2018-09-25] MEDS ORDERED: PT OWN MED DRAWER 7, Y5N ONE (09:17)
[2018-09-25] MEDS ORDERED: ERGOCALCIFEROL (VITAMIN D2) 50,000 UNIT CAPSULE (FP) PO SCH (10:00)
--- NOTE | 2018-09-25 10:02 | PN ---
Progress Note (short form) - Note Progress Note: RENAL awake, seems better, no abdominal pain answers questions Last Vital Signs Temp Pulse Resp BP Pulse Ox 98.4 F 84 18 150/72 100 09/25/18 09:54 09/25/18 09:54 09/25/18 09:54 09/25/18 09:54 09/24/18 21:00 lungs clear cvs s1s2 rr permcath site not tender abd soft ext no edema, some tenderness skin has a small left heel ulcer CBC, BMP 09/25/18 07:00 09/25/18 07:00 Current Medications Generic Name Dose Route Start Last Admin Trade Name Freq PRN Reason Stop Dose Admin Acetaminophen 650 mg 09/23/18 12:39 09/23/18 15:03 Tylenol - PO 650 mg Q6H PRN Administration pain,fever Aspirin 325 mg 09/24/18 10:00 09/24/18 10:41 Ecotrin - PO Not Given DAILY BRAD Atorvastatin Calcium 20 mg 09/23/18 22:00 09/24/18 22:48 Lipitor - PO Not Given HS BRAD Calcium Acetate 667 mg 09/23/18 17:30 09/24/18 17:03 Phoslo - PO Not Given TIDCM BRAD Docusate Sodium 100 mg 09/23/18 22:00 09/24/18 22:47 Colace - PO Not Given BID BRAD Ergocalciferol 50,000 unit 09/25/18 10:00 Drisdol - PO Olivier@1000 BRAD Folic Acid 1 mg 09/24/18 10:00 09/24/18 10:42 Folic Acid - PO Not Given DAILY BRAD Heparin Sodium (Porcine) 5,000 unit 09/23/18 22:00 09/24/18 22:46 Heparin - SQ 5,000 unit BID BRAD Administration Piperacillin Sod/Tazobactam 50 mls @ 100 mls/hr 09/23/18 18:00 09/25/18 01: 07 EST Sod 2.25 gm/ Dextrose IVPB 100 mls/hr Q8H-IV BRAD Administration Protocol Sodium Chloride 250 mls @ 3,000 mls/hr 09/24/18 12:52 Normal Saline - IV PRN PRN Hypotension during Dialysis Dextrose/Sodium Chloride 1,000 mls @ 75 mls/hr 09/24/18 16:02 09/25/18 04:59 D5-Ns - IV 75 mls/hr ASDIR BRAD Administration Insulin Aspart 1 vial 09/23/18 16:30 09/25/18 06:40 Novolog Vial Sliding Scale - SQ 5 units BIDAC BRAD Administration Protocol Vancomycin HCl 125 mg 09/24/18 18:00 09/25/18 06:40 Vancomycin Oral Solution PO Not Given Q6HPO BRAD IMPRESSION esrd sepsis- blood cultures have been negative however pancolitis diabets pleural effusion post cabg PLAN he tolerated hd yesterday would dc fluids if able to eat anti Cdiff meds per GI MV
[2018-09-25] MEDS: FOLIC ACID 1 MG TABLET (FP) PO SCH (10:24)
[2018-09-25] MEDS: ASPIRIN 325 MG ENTERIC COATED TABLET (FP) PO SCH (10:24)
[2018-09-25] MEDS: HEPARIN NA (PORCINE) 5,000 UNITS/ML 1ML VIAL SQ SCH ×2 (10:24→22:55)
[2018-09-25] MEDS: DOCUSATE SODIUM 100 MG CAPSULE (FP) PO SCH ×2 (10:25→22:55)
[2018-09-25] MEDS: CALCIUM ACETATE 667 MG CAPSULE (FP) PO SCH ×3 (10:25→18:06)
--- NOTE | 2018-09-25 11:30 | PN ---
Progress Note, Physician History of Present Illness: starting to feel better abd pain better says carina trivedi bm wbc trending down - Current Medication List Current Medications: Active Medications Acetaminophen (Tylenol -) 650 mg PO Q6H PRN PRN Reason: pain,fever Last Admin: 09/23/18 15:03 Dose: 650 mg Aspirin (Ecotrin -) 325 mg PO DAILY [facility] Last Admin: 09/25/18 10:24 Dose: 325 mg Atorvastatin Calcium (Lipitor -) 20 mg PO HS [facility] Last Admin: 09/24/18 22:48 Dose: Not Given Calcium Acetate (Phoslo -) 667 mg PO TIDCM [facility] Last Admin: 09/25/18 10:25 Dose: Not Given Docusate Sodium (Colace -) 100 mg PO BID [facility] Last Admin: 09/25/18 10:25 Dose: Not Given Ergocalciferol (Drisdol -) 50,000 unit PO Olivier@1000 [facility] Last Admin: 09/25/18 10:24 Dose: 50,000 unit Folic Acid (Folic Acid -) 1 mg PO DAILY [facility] Last Admin: 09/25/18 10:24 Dose: 1 mg Heparin Sodium (Porcine) (Heparin -) 5,000 unit SQ BID [facility] Last Admin: 09/25/18 10:24 Dose: 5,000 unit Piperacillin Sod/Tazobactam (Sod 2.25 gm/ Dextrose) 50 mls @ 100 mls/hr IVPB Q8H-IV [facility]; Protocol Last Admin: 09/25/18 10:25 Dose: 100 mls/hr Sodium Chloride (Normal Saline -) 250 mls @ 3,000 mls/hr IV PRN PRN PRN Reason: Hypotension during Dialysis Dextrose/Sodium Chloride (D5-Ns -) 1,000 mls @ 75 mls/hr IV ASDIR [facility] Last Admin: 09/25/18 04:59 Dose: 75 mls/hr Insulin Aspart (Novolog Vial Sliding Scale -) 1 vial SQ BIDAC [facility]; Protocol Last Admin: 09/25/18 06:40 Dose: 5 units Vancomycin HCl (Vancomycin Oral Solution) 125 mg PO Q6HPO [facility] Last Admin: 09/25/18 06:40 Dose: Not Given - Objective Vital Signs: Vital Signs Temperature 98.4 F 09/25/18 09:54 Pulse Rate 84 09/25/18 09:54 Respiratory Rate 18 09/25/18 09:54 Blood Pressure 150/72 09/25/18 09:54 O2 Sat by Pulse Oximetry (%) 100 09/24/18 21:00 Constitutional: Yes: No Distress, Calm Cardiovascular: Yes: Regular Rate and Rhythm Respiratory: Yes: Regular, CTA Bilaterally Gastrointestinal: Yes: Soft, Hypoactive Bowel Sounds, Tenderness Musculoskeletal: Yes: WNL Extremities: Yes: WNL Neurological: Yes: Alert, Oriented Psychiatric: Yes: Alert, Oriented Labs: CBC, BMP 09/25/18 07:00 09/25/18 07:00 INR, PTT INR 1.13 (0.83-1.09) H 09/23/18 08:30 Assessment/Plan Problem List - Problems (1) Sepsis associated hypotension Code(s): A41.9 - SEPSIS, UNSPECIFIED ORGANISM; I95.9 - HYPOTENSION, UNSPECIFIED (2) Altered mental status Code(s): R41.82 - ALTERED MENTAL STATUS, UNSPECIFIED (3) CAD (coronary artery disease) Code(s): I25.10 - ATHSCL HEART DISEASE OF [place] CORONARY ARTERY W/O ANG PCTRS Qualifiers: Coronary Disease-Associated Artery/Lesion type: [place] artery [place] vs. transplanted heart: [place] heart Associated angina: without angina Qualified Code(s): I25.10 - Atherosclerotic heart disease of [place] coronary artery without angina pectoris (4) ESRD (end stage renal disease) Code(s): N18.6 - END STAGE RENAL DISEASE (5) Fever Code(s): R50.9 - FEVER, UNSPECIFIED Qualifiers: Fever type: unspecified Qualified Code(s): R50.9 - Fever, unspecified (6) S/P CABG (coronary artery bypass graft) Code(s): Z95.1 - PRESENCE OF AORTOCORONARY BYPASS GRAFT 7 abd pain [address] scan seen--has mccabe colitis plan 1 continue zosyn 2 monitor fever monitor wbc rest as per the team
--- NOTE | 2018-09-25 11:42 | PN ---
Progress Note (short form) - Note Progress Note: Pt examined feels hungry no abd pain Vital Signs - 24 hr 09/24/18 09/25/18 09/25/18 23:00 01:58 EDT 06:00 Temperature 97.8 F 97.8 F 98.7 F Pulse Rate 75 83 91 H Respiratory 16 18 18 Rate Blood Pressure 102/49 L 118/61 116/59 L O2 Sat by Pulse Oximetry (%) 09/25/18 09/25/18 09/25/18 09:00 09:54 17:10 Temperature 98.4 F 98.6 F Pulse Rate 84 94 H Respiratory 18 18 Rate Blood Pressure 150/72 140/72 O2 Sat by Pulse 100 Oximetry (%) Current Medications Generic Name Dose Route Start Last Admin Trade Name Freq PRN Reason Stop Dose Admin Acetaminophen 650 mg 09/23/18 12:39 09/23/18 15:03 Tylenol - PO 650 mg Q6H PRN Administration pain,fever Aspirin 325 mg 09/24/18 10:00 09/25/18 10:24 Ecotrin - PO 325 mg DAILY BRAD Administration Atorvastatin Calcium 20 mg 09/23/18 22:00 09/24/18 22:48 Lipitor - PO Not Given HS BRAD Calcium Acetate 667 mg 09/23/18 17:30 09/25/18 18:06 Phoslo - PO Not Given TIDCM BRAD Docusate Sodium 100 mg 09/23/18 22:00 09/25/18 10:25 Colace - PO Not Given BID BRAD Ergocalciferol 50,000 unit 09/25/18 10:00 09/25/18 10:24 Drisdol - PO 50,000 unit Olivier@1000 BRAD Administration Folic Acid 1 mg 09/24/18 10:00 09/25/18 10:24 Folic Acid - PO 1 mg DAILY BRAD Administration Heparin Sodium (Porcine) 5,000 unit 09/23/18 22:00 09/25/18 10:24 Heparin - SQ 5,000 unit BID BRAD Administration Sodium Chloride 250 mls @ 3,000 mls/hr 09/24/18 12:52 Normal Saline - IV PRN PRN Hypotension during Dialysis Dextrose/Sodium Chloride 1,000 mls @ 75 mls/hr 09/24/18 16:02 09/25/18 18:06 D5-Ns - IV 75 mls/hr ASDIR BRAD Administration Insulin Aspart 1 vial 09/23/18 16:30 09/25/18 18:05 Novolog Vial Sliding Scale - SQ 5 units BIDAC BRAD Administration Protocol Lactobacillus Acidophilus 1 tab 09/26/18 10:00 Bacid - PO DAILY BRAD Vancomycin HCl 125 mg 09/24/18 18:00 09/25/18 18:06 Vancomycin Oral Solution PO 125 mg Q6HPO BRAD Administration Laboratory Results - last 24 hr 09/24/18 09/25/18 09/25/18 11:55 06:39 07:00 WBC RBC Hgb Hct MCV MCH MCHC RDW Plt Count MPV Absolute Neuts (auto) Neutrophils % Lymphocytes % Monocytes % Eosinophils % Basophils % Nucleated RBC % Sodium 142 Potassium 3.2 L Chloride 104 Carbon Dioxide 26 Anion Gap 12 BUN 29 H Creatinine 5.5 H Creat Clearance w eGFR 10.62 POC Glucometer 219 Random Glucose 213 H Calcium 8.5 C-Reactive Protein 22.4 H Hep C Ab Diagnostic <0.1 09/25/18 09/25/18 09/25/18 07:00 11:56 16:45 WBC 16.4 H RBC 3.33 L Hgb 9.9 L Hct 29.8 L MCV 89.6 MCH 29.8 MCHC 33.3 RDW 16.6 H Plt Count 346 MPV 8.1 Absolute Neuts (auto) 14.4 H Neutrophils % 87.8 H Lymphocytes % 4.5 L D Monocytes % 6.8 Eosinophils % 0.7 Basophils % 0.2 Nucleated RBC % 0 Sodium Potassium Chloride Carbon Dioxide Anion Gap BUN Creatinine Creat Clearance w eGFR POC Glucometer 149 228 Random Glucose Calcium C-Reactive Protein Hep C Ab Diagnostic Lungs decreased And- soft , decreased tenderness +ND No edema PLAN Pancolitis ESRD on HD cdiff -- iv antibiotics, po vanco -- stool studies -- spoke with ID and GI -- clears -- hydrate - mild- as pt is on dilaysis Problem List - Problems (1) Pancolitis Code(s): K51.00 - ULCERATIVE (CHRONIC) PANCOLITIS WITHOUT COMPLICATIONS (2) Altered mental status Code(s): R41.82 - ALTERED MENTAL STATUS, UNSPECIFIED (3) Sepsis associated hypotension Code(s): A41.9 - SEPSIS, UNSPECIFIED ORGANISM; I95.9 - HYPOTENSION, UNSPECIFIED (4) Acute on chronic diastolic heart failure Code(s): I50.33 - ACUTE ON CHRONIC DIASTOLIC (CONGESTIVE) HEART FAILURE (5) CAD (coronary artery disease) Code(s): I25.10 - ATHSCL HEART DISEASE OF [place] CORONARY ARTERY W/O ANG PCTRS Qualifiers: Coronary Disease-Associated Artery/Lesion type: [place] artery [place] vs. transplanted heart: [place] heart Associated angina: without angina Qualified Code(s): I25.10 - Atherosclerotic heart disease of [place] coronary artery without angina pectoris (6) ESRD (end stage renal disease) Code(s): N18.6 - END STAGE RENAL DISEASE
[2018-09-25 14:01] VITALS: BMI 17.9
--- NOTE | 2018-09-25 14:32 | PN ---
GI Progress Note Subjective: GI Note: Looks much better. - Objective Vital Signs: Vital Signs Temperature 98.4 F 09/25/18 09:54 Pulse Rate 84 09/25/18 09:54 Respiratory Rate 18 09/25/18 09:54 Blood Pressure 150/72 09/25/18 09:54 O2 Sat by Pulse Oximetry (%) 100 09/25/18 09:00 Microbiology Laboratory Tests 09/23/18 09/24/18 09/25/18 08:00 06:00 07:00 WBC 13.0 H 23.0 H 16.4 H Hgb 9.8 L 9.9 L Constitutional: Calm ...Auscultate: Yes: Hyperactive Bowel Sounds ...Palpate: Yes: Soft, Other (nontender today) Labs: CBC, BMP 09/25/18 07:00 09/25/18 07:00 INR, PTT INR 1.13 (0.83-1.09) H 09/23/18 08:30 Problem List - Problems (1) Pancolitis Assessment/Plan: Appears much improved since Vanco was started. C diff toxin pending. Will start soft diet. Code(s): K51.00 - ULCERATIVE (CHRONIC) PANCOLITIS WITHOUT COMPLICATIONS (2) Diarrhea Code(s): R19.7 - DIARRHEA, UNSPECIFIED (3) Occult blood in stools Code(s): R19.5 - OTHER FECAL ABNORMALITIES (4) Altered mental status Code(s): R41.82 - ALTERED MENTAL STATUS, UNSPECIFIED (5) ESRD (end stage renal disease) Code(s): N18.6 - END STAGE RENAL DISEASE (6) Fever Code(s): R50.9 - FEVER, UNSPECIFIED Qualifiers: Fever type: unspecified Qualified Code(s): R50.9 - Fever, unspecified (7) Pleural effusion due to CHF (congestive heart failure) Code(s): I50.9 - HEART FAILURE, UNSPECIFIED (8) S/P CABG (coronary artery bypass graft) Code(s): Z95.1 - PRESENCE OF AORTOCORONARY BYPASS GRAFT
[2018-09-25] MEDS ORDERED: DEXTROSE 5%-NORMAL SALINE 1,000 ML IV SCH (21:42)
[2018-09-25] MEDS: ATORVASTATIN CA 20 MG TABLET (FP) PO SCH (22:55)
[2018-09-26] MEDS: VANCOMYCIN 250 MG/5 ML ORAL SOLUTION PO SCH ×2 (06:25→13:49)
[2018-09-26] MEDS: INSULIN SLIDING SCALE (NOVOLOG) 1 VIAL SQ SCH (06:25)
[2018-09-26 07:11] LABS: BASO % 0.3 % (0-2.0); EOS % 3.4 % (0-4.5); HEMATOCRIT 29.6 % (35.4-49); HEMOGLOBIN 9.9 GM/dL (11.7-16.9); LYMPH % 7.5 % (8-40); MCH 30.1 pg (25.7-33.7); MCHC 33.3 g/dl (32.0-35.9); MEAN CELL VOLUME 90.4 fl (80-96); MEAN PLT VOLUME 7.9 fl (7.5-11.1); MONO % 13.3 % (3.8-10.2); NEUT % 75.5 % (42.8-82.8); PLATELET COUNT 350 K/MM3 (134-434); RBC 3.27 M/mm3 (4.00-5.60); WHITE BLOOD COUNT 13.7 K/mm3 (4.0-10.0)
[2018-09-26] MEDS ORDERED: LACTOBACILLUS ACIDOPHILUS 1 TABLET PO SCH (10:00)
--- NOTE | 2018-09-26 10:23 | PN ---
GI Progress Note Subjective: States feeling well No abdominal pain States diarrhea improves - Objective Vital Signs: Vital Signs Temperature 98.3 F 09/26/18 05:00 Pulse Rate 74 09/26/18 05:00 Respiratory Rate 18 09/26/18 05:00 Blood Pressure 144/66 09/26/18 05:00 O2 Sat by Pulse Oximetry (%) 100 09/25/18 21:00 Constitutional: Calm Eyes: No: Sclera Icterus Cardiovascular: Yes: Regular Rate and Rhythm. No: Murmur Respiratory: Yes: Diminished (at bases bilaterally) Gastrointestinal Inspection: No: Distention ...Auscultate: Yes: Normoactive Bowel Sounds ...Palpate: No: Hepatomegaly, Tenderness ...Percussion: No: Tympanitic Edema: No (No LE edema) Neurological: Yes: Alert Labs: CBC, BMP 09/26/18 06:15 09/25/18 07:00 INR, PTT INR 1.13 (0.83-1.09) H 09/23/18 08:30 Hepatic Panel Total Bilirubin 0.6 mg/dL (0.2-1) 09/24/18 06:00 AST 18 U/L (15-37) 09/24/18 06:00 ALT 17 U/L (13-61) 09/24/18 06:00 Alkaline Phosphatase 127 U/L (45-117) H 09/24/18 06:00 Albumin 2.4 g/dl (3.4-5.0) L 09/24/18 06:00 Problem List - Problems (1) Enterocolitis due to Clostridium difficile Assessment/Plan: Clinically improved Continue Vancomycin 125mg PO Q 6 hrs. Would continue for 14 day course Avoid PPI Low residue diet Outpatient follow-up to discuss colonoscopy when acute issues are resolved Code(s): A04.72 - ENTEROCOLITIS D/T CLOSTRIDIUM DIFFICILE, NOT SPCF RECUR
[2018-09-26] MEDS: ASPIRIN 325 MG ENTERIC COATED TABLET (FP) PO SCH (10:40)
[2018-09-26] MEDS: CALCIUM ACETATE 667 MG CAPSULE (FP) PO SCH ×2 (10:40→13:48)
[2018-09-26] MEDS: FOLIC ACID 1 MG TABLET (FP) PO SCH (10:40)
[2018-09-26] MEDS: DOCUSATE SODIUM 100 MG CAPSULE (FP) PO SCH (10:40)
[2018-09-26] MEDS: HEPARIN NA (PORCINE) 5,000 UNITS/ML 1ML VIAL SQ SCH (10:41)
--- NOTE | 2018-09-26 11:48 | DS ---
Physical Examination Vital Signs: Vital Signs Temperature 98.3 F 09/26/18 09:00 Pulse Rate 74 09/26/18 09:00 Respiratory Rate 18 09/26/18 09:00 Blood Pressure 144/66 09/26/18 09:00 O2 Sat by Pulse Oximetry (%) 100 09/26/18 09:00 Findings/Remarks: better no complaints Feels well Constitutional: Yes: No Distress, Calm Neck: Yes: Supple Cardiovascular: Yes: Regular Rate and Rhythm Gastrointestinal: Yes: Soft Edema: No Neurological: Yes: Alert Labs: CBC, BMP 09/26/18 06:15 09/25/18 07:00 Discharge Summary Reason For Visit: SYSTEMIC INFLAMATORY RESPONSE SYNDROME Current Active Problems Altered mental status (Acute) Diarrhea (Acute) Enterocolitis due to Clostridium difficile (Acute) Occult blood in stools (Acute) Pancolitis (Acute) Pleural effusion (Acute) Sepsis associated hypotension (Acute) Malnutrition Hospital Course: The patient is an 83 year old male with a PMH of ESRD (T//Wed HD) HTN, CAD (s/ p CABG), IDDM who presents from [facility] for c/o for a c/o AMS. At presentation patient c/o R foot pain but denies any other active medical complaints. Call placed to [facility] , case d/w RN Thalia, notes patient was "moaning" overnight. At baseline patient is A&O x3. Patient states his last HD was yesterday, [facility] confirms it was a full run. Patient has been at [facility] intermittently for the last 2 years. patient was hospitalized a few months ago due to CHF /pleural effusion--- underwent thoracocentesis. As per paperwork from [facility] patient was hypotensive (88/54) and hypoxic (SpO2 88%) this morning prior to presentation. patient was hypotensive in the emergency room Given fluids and broad-spectrum antibiotics workup showed C. difficile colitis treated with By mouth vancomycin ID and GI followed Much better now stable for discharge Vancomycin to be continued for 2 weeks total Dialysis as per renal Patient also has malnutrition-- Condition: Improved - Instructions Referrals: Sasha Arevalo MD [Primary Care Provider] - Disposition: [facility] - Home Medications Comprehensive Discharge Medication List: Ambulatory Orders Acetaminophen [Tylenol] 650 mg PO Q6H PRN 07/19/18 Amlodipine Besylate [Norvasc -] 10 mg PO DAILY 07/19/18 Aspirin [Ecotrin] 325 mg PO DAILY 07/19/18 Atorvastatin Ca [Lipitor] 20 mg PO HS 07/19/18 Calcium Acetate [Phoslo -] 667 mg PO TIDCM 07/19/18 Carvedilol [Coreg -] 12.5 mg PO BID 07/19/18 Clonidine Patch [Catapres Tts Patch -] 0.2 mg TD MCMULLEN 07/19/18 Ergocalciferol [Vitamin D2] 50,000 unit PO MCMULLEN 07/19/18 Folic Acid - 1 mg PO DAILY 07/19/18 Metoprolol Tartrate [Lopressor -] 50 mg PO BID 07/19/18 hydrALAZINE HCL [Apresoline -] 25 mg PO TID 07/19/18 Gel Dressing [Dermasyn] 85 gm TP BID 09/23/18 Insulin Aspart [Novolog Flexpen] 100 unit SQ ASDIR 09/23/18 Heparin - 5,000 unit SQ BID vial 09/26/18 Lactobacillus Acidophilus [Bacid -] 1 tab PO DAILY tab 09/26/18 Vancomycin Oral Solution 125 mg PO Q6HPO #48 ml MDD 4 09/26/18
--- NOTE | 2018-09-26 11:56 | PN ---
Progress Note, Physician History of Present Illness: stable doing well awake and alert - Current Medication List Current Medications: Active Medications Acetaminophen (Tylenol -) 650 mg PO Q6H PRN PRN Reason: pain,fever Last Admin: 09/23/18 15:03 Dose: 650 mg Aspirin (Ecotrin -) 325 mg PO DAILY [facility] Last Admin: 09/26/18 10:40 Dose: 325 mg Atorvastatin Calcium (Lipitor -) 20 mg PO HS [facility] Last Admin: 09/25/18 22:55 Dose: 20 mg Calcium Acetate (Phoslo -) 667 mg PO TIDCM [facility] Last Admin: 09/26/18 10:40 Dose: 667 mg Docusate Sodium (Colace -) 100 mg PO BID [facility] Last Admin: 09/26/18 10:40 Dose: 100 mg Ergocalciferol (Drisdol -) 50,000 unit PO Olivier@1000 [facility] Last Admin: 09/25/18 10:24 Dose: 50,000 unit Folic Acid (Folic Acid -) 1 mg PO DAILY [facility] Last Admin: 09/26/18 10:40 Dose: 1 mg Heparin Sodium (Porcine) (Heparin -) 5,000 unit SQ BID [facility] Last Admin: 09/26/18 10:41 Dose: 5,000 unit Sodium Chloride (Normal Saline -) 250 mls @ 3,000 mls/hr IV PRN PRN PRN Reason: Hypotension during Dialysis Insulin Aspart (Novolog Vial Sliding Scale -) [facility]; Protocol Last Admin: 09/26/18 06:25 Dose: 5 units Lactobacillus Acidophilus (Bacid -) 1 tab PO DAILY [facility] Last Admin: 09/26/18 10:40 Dose: 1 tab Vancomycin HCl (Vancomycin Oral Solution) 125 mg PO Q6HPO [facility] Last Admin: 09/26/18 06:25 Dose: 125 mg - Objective Vital Signs: Vital Signs Temperature 98.3 F 09/26/18 09:00 Pulse Rate 74 09/26/18 09:00 Respiratory Rate 18 09/26/18 09:00 Blood Pressure 144/66 09/26/18 09:00 O2 Sat by Pulse Oximetry (%) 100 09/26/18 09:00 Constitutional: Yes: No Distress, Calm Cardiovascular: Yes: Regular Rate and Rhythm Respiratory: Yes: Regular, CTA Bilaterally Gastrointestinal: Yes: Normal Bowel Sounds, Soft Musculoskeletal: Yes: WNL Extremities: Yes: WNL Neurological: Yes: Alert, Oriented Psychiatric: Yes: Alert, Oriented Labs: CBC, BMP 09/26/18 06:15 09/25/18 07:00 INR, PTT INR 1.13 (0.83-1.09) H 09/23/18 08:30 Assessment/Plan Problem List - Problems (1) Sepsis associated hypotension Code(s): A41.9 - SEPSIS, UNSPECIFIED ORGANISM; I95.9 - HYPOTENSION, UNSPECIFIED (2) Altered mental status Code(s): R41.82 - ALTERED MENTAL STATUS, UNSPECIFIED (3) CAD (coronary artery disease) Code(s): I25.10 - ATHSCL HEART DISEASE OF [place] CORONARY ARTERY W/O ANG PCTRS Qualifiers: Coronary Disease-Associated Artery/Lesion type: [place] artery [place] vs. transplanted heart: [place] heart Associated angina: without angina Qualified Code(s): I25.10 - Atherosclerotic heart disease of [place] coronary artery without angina pectoris (4) ESRD (end stage renal disease) Code(s): N18.6 - END STAGE RENAL DISEASE (5) Fever Code(s): R50.9 - FEVER, UNSPECIFIED Qualifiers: Fever type: unspecified Qualified Code(s): R50.9 - Fever, unspecified (6) S/P CABG (coronary artery bypass graft) Code(s): Z95.1 - PRESENCE OF AORTOCORONARY BYPASS GRAFT 7 abd pain 8 leukocytosis 9 cdiff colitis plan vanco for a total of 14 days rest as per the team
[2018-09-26] MEDS ORDERED: SODIUM CHLORIDE 250 ML IV PRN (12:47)
--- NOTE | 2018-09-26 12:47 | PN ---
Progress Note, Physician History of Present Illness: Pt seen and examined at bedside. He is more awake and alert. He denies shortness of breath. - Current Medication List Current Medications: Active Medications Acetaminophen (Tylenol -) 650 mg PO Q6H PRN PRN Reason: pain,fever Last Admin: 09/23/18 15:03 Dose: 650 mg Aspirin (Ecotrin -) 325 mg PO DAILY [facility] Last Admin: 09/26/18 10:40 Dose: 325 mg Atorvastatin Calcium (Lipitor -) 20 mg PO HS [facility] Last Admin: 09/25/18 22:55 Dose: 20 mg Calcium Acetate (Phoslo -) 667 mg PO TIDCM [facility] Last Admin: 09/26/18 10:40 Dose: 667 mg Docusate Sodium (Colace -) 100 mg PO BID [facility] Last Admin: 09/26/18 10:40 Dose: 100 mg Ergocalciferol (Drisdol -) 50,000 unit PO [email or web address]@1000 [facility] Last Admin: 09/25/18 10:24 Dose: 50,000 unit Folic Acid (Folic Acid -) 1 mg PO DAILY [facility] Last Admin: 09/26/18 10:40 Dose: 1 mg Heparin Sodium (Porcine) (Heparin -) 5,000 unit SQ BID [facility] Last Admin: 09/26/18 10:41 Dose: 5,000 unit Sodium Chloride (Normal Saline -) 250 mls @ 3,000 mls/hr IV PRN PRN PRN Reason: Hypotension during Dialysis Insulin Aspart (Novolog Vial Sliding Scale -) [facility]; Protocol Last Admin: 09/26/18 06:25 Dose: 5 units Lactobacillus Acidophilus (Bacid -) 1 tab PO DAILY [facility] Last Admin: 09/26/18 10:40 Dose: 1 tab Vancomycin HCl (Vancomycin Oral Solution) 125 mg PO Q6HPO [facility] Last Admin: 09/26/18 06:25 Dose: 125 mg - Objective Vital Signs: Vital Signs Temperature 98.3 F 09/26/18 09:00 Pulse Rate 74 09/26/18 09:00 Respiratory Rate 18 09/26/18 09:00 Blood Pressure 144/66 09/26/18 09:00 O2 Sat by Pulse Oximetry (%) 100 09/26/18 09:00 Constitutional: Yes: Calm Eyes: Yes: Conjunctiva Clear HENT: Yes: Atraumatic Neck: Yes: Supple Cardiovascular: Yes: S1, S2 Respiratory: Yes: CTA Bilaterally Gastrointestinal: Yes: Normal Bowel Sounds, Soft Genitourinary: Yes: Incontinence Musculoskeletal: Yes: Muscle Weakness Edema: No Neurological: Yes: Oriented Labs: CBC, BMP 09/26/18 06:15 09/25/18 07:00 INR, PTT INR 1.13 (0.83-1.09) H 09/23/18 08:30 Problem List - Problems (1) ESRD (end stage renal disease) Code(s): N18.6 - END STAGE RENAL DISEASE Assessment/Plan Current Medications Generic Name Dose Route Start Last Admin Trade Name Freq PRN Reason Stop Dose Admin Acetaminophen 650 mg 09/23/18 12:39 09/23/18 15:03 Tylenol - PO 650 mg Q6H PRN Administration pain,fever Aspirin 325 mg 09/24/18 10:00 09/26/18 10:40 Ecotrin - PO 325 mg DAILY BRAD Administration Atorvastatin Calcium 20 mg 09/23/18 22:00 09/25/18 22:55 Lipitor - PO 20 mg HS [facility]DA Administration Calcium Acetate 667 mg 09/23/18 17:30 09/26/18 10:40 Phoslo - PO 667 mg TIDCM BRAD Administration Docusate Sodium 100 mg 09/23/18 22:00 09/26/18 10:40 Colace - PO 100 mg BID BRAD Administration Ergocalciferol 50,000 unit 09/25/18 10:00 09/25/18 10:24 Drisdol - PO 50,000 unit Olivier@1000 BRAD Administration Folic Acid 1 mg 09/24/18 10:00 09/26/18 10:40 Folic Acid - PO 1 mg DAILY BRAD Administration Heparin Sodium (Porcine) 5,000 unit 09/23/18 22:00 09/26/18 10:41 Heparin - SQ 5,000 unit BID BRAD Administration Sodium Chloride 250 mls @ 3,000 mls/hr 09/24/18 12:52 Normal Saline - IV PRN PRN Hypotension during Dialysis Insulin Aspart 1 vial 09/23/18 16:30 09/26/18 06:25 Novolog Vial Sliding Scale - SQ 5 units BIDAC BRAD Administration Protocol Lactobacillus Acidophilus 1 tab 09/26/18 10:00 09/26/18 10:40 Bacid - PO 1 tab DAILY BRAD Administration Vancomycin HCl 125 mg 09/24/18 18:00 09/26/18 06:25 Vancomycin Oral Solution PO 125 mg Q6HPO BRAD Administration Impression 1. ESRD 2. altered mental status 3. PNA 4. sepsis 5. anemia 6. CAD 7. hx CABG 8. DM 9. HLD 10. c.diff Plan - will arrange for HD in am - pt on po vanco - monitor bp - monitor wbc - bp is improved - HD 3:30 permacath 2 k bath heprin 2000 bolus and 1000 maintenance, abf 400, kulwant 1 mcg. Pt did get aranesp 40 mcg yesterday - will follow pt Dr Siu
[2018-09-26 13:25] VITALS: TEMP 98.1
[2018-09-26 16:23] VITALS: BP 157/84; PULSE 81
[2018-09-27 00:06] LABS: HBSAG SCREEN Negative (Negative); HEP A AB, IGM Negative (Negative); HEP B CORE AB, TOT Negative (Negative)
[2018-09-27] MEDS ORDERED: PARICALCITOL 5 MCG/ML VIAL IVPUSH ONE (12:47)
[2018-09-27] MEDS ORDERED: HEPARIN NA (PORCINE) 5,000 UNITS/ML 1ML VIAL IVPUSH ONE (12:47)
[2018-09-27] MEDS ORDERED: HEPARIN NA (PORCINE) 5,000 UNITS/ML 1ML VIAL IVPUSH SCH (13:00)
== END 2018-09-26 16:51 | DRG 871 ==
LOC: JER 06:21 → JERBED 10:56 → OBSVTOIN 12:40 → J7W 14:32
PROVIDERS: ADMIT Internal Medicine; ATTEND Internal Medicine
DX: A41.9 Sepsis, unspecified organism (principal); N18.6 End stage renal disease; J90 Pleural effusion, not elsewhere classified; A04.72 Enterocolitis due to Clostridium difficile, not specified as recurrent; I12.0 Hypertensive chronic kidney disease with stage 5 chronic kidney disease or end stage renal disease; R64 Cachexia; Z68.1 Body mass index [BMI] 19.9 or less, adult; J98.11 Atelectasis; R41.82 Altered mental status, unspecified; I25.10 Atherosclerotic heart disease of native coronary artery without angina pectoris; Z95.1 Presence of aortocoronary bypass graft; D72.829 Elevated white blood cell count, unspecified; E11.22 Type 2 diabetes mellitus with diabetic chronic kidney disease
CPT/HCPCS: 36415; 71045-TC-FY; 74021-TC-FY; 74176-TC; 80048; 80053; 82140; 82607; 82962; 83605; 83735; 84443; 84484; 85025; 85610; 85730; 86140; 86704; 86706; 86708; 86803; 87040; 87045; 87046; 87086; 87177; 87186; 87205; 87209; 87324; 87340; 87449; 93005; 93010; 99283-25; G0378; J0131; J1644; P9047

== ENCOUNTER 2019-07-16 14:43 | Inpatient (IN) | payer OTHER ==
--- NOTE | 2019-07-16 15:47 | PDOC ---
History of Present Illness - General Chief Complaint: Rectal Bleed Stated Complaint: GIB Time Seen by Provider: 07/16/19 15:01 - History of Present Illness Initial Comments: 07/16/19 21:22 64 y/o M hx of CAD s/p CABG, HTN,HLD, ESRD, GERD , dementia, and dysphagia [facility]. He recently had an abdominal CT scan which showed he had an apple core lesion. Previous attempt at bowel prep for colonoscopy was unsuccessful. The pt is here to be admitted so he can get proper bowel prep for colonoscopy on 07/17/2019 He has been experiencing weight loss,increasing weakness and needing increased assistance to perform his adl's. Pt seemed somnolent and tired and was unable to give me a proper history on why he was here. History obtained from [facility] records and speaking with nursing corporate physical security supervisor Freda Saavedra. Past History - Past Medical History Allergies/Adverse Reactions: Allergies Allergy/AdvReac Type Severity Reaction Status Date / Time No Known Allergies Allergy Verified 09/23/18 06:37 Home Medications: Ambulatory Orders Acetaminophen [Tylenol] 650 mg PO Q6H PRN 07/19/18 Amlodipine Besylate [Norvasc -] 10 mg PO DAILY 07/19/18 Aspirin [Ecotrin] 325 mg PO DAILY 07/19/18 Atorvastatin Ca [Lipitor] 20 mg PO HS 07/19/18 Calcium Acetate [Phoslo -] 667 mg PO TIDCM 07/19/18 Carvedilol [Coreg -] 12.5 mg PO BID 07/19/18 Clonidine Patch [Catapres Tts Patch -] 0.2 mg TD MCMULLEN 07/19/18 Ergocalciferol [Vitamin D2] 50,000 unit PO MCMULLEN 07/19/18 Folic Acid - 1 mg PO DAILY 07/19/18 Metoprolol Tartrate [Lopressor -] 50 mg PO BID 07/19/18 hydrALAZINE HCL [Apresoline -] 25 mg PO TID 07/19/18 Gel Dressing [Dermasyn] 85 gm TP BID 09/23/18 Insulin Aspart [Novolog Flexpen] 100 unit SQ ASDIR 09/23/18 Heparin - 5,000 unit SQ BID vial 09/26/18 Lactobacillus Acidophilus [Bacid -] 1 tab PO DAILY tab 09/26/18 Vancomycin Oral Solution 125 mg PO Q6HPO #48 ml MDD 4 09/26/18 Anemia: Yes Cardiac Disorders: Yes (CAD, DVT right leg, Angina) COPD: No CHF: No DVT: Yes Dementia: Yes Diabetes: Yes Dialysis: Yes (tue- thur- sat right chest dialysis catheter) GI Disorders: Yes (GERD, Dysphagia) HTN: Yes Hypercholesterolemia: Yes - Surgical History Cardiac Surgery: Yes (CABG) Cholecystectomy: No GI Surgery: No - Immunization History Immunization Up to Date: Yes - Suicide/Smoking/Psychosocial Hx Smoking History: Never smoked Have you smoked in the past 12 months: No Number of Cigarettes Smoked Daily: 0 Cigars Per Day: 0 Information on smoking cessation initiated: No Hx Alcohol Use: No Drug/Substance Use Hx: No Substance Use Type: None Hx Substance Use Treatment: No Review of Systems - Review of Systems Able to Perform ROS?: No *Physical Exam - Vital Signs Last Vital Signs Temp Pulse Resp BP Pulse Ox 98.3 F 64 16 152/61 99 07/16/19 15:02 07/16/19 15:02 07/16/19 15:02 07/16/19 15:02 07/16/19 15:02 - Physical Exam General Appearance: Yes: Appropriately Dressed, Thin. No: Apparent Distress Neck: positive: Trachea midline, Supple. negative: Tender Respiratory/Chest: positive: Crackles. negative: Respiratory Distress, Accessory Muscle Use, Labored Respiration Cardiovascular: positive: Regular Rhythm, Regular Rate, S1, S2, Systolic Murmur. negative: Edema, JVD Vascular Pulses: Dorsalis-Pedis (R): 1+, Doralis-Pedis (L): 1+ Gastrointestinal/Abdominal: positive: Normal Bowel Sounds, Soft, Tenderness, Other (epigastric and RLQ tenderness) Musculoskeletal: positive: Normal Inspection. negative: CVA Tenderness Extremity: positive: Normal Inspection. negative: Swelling, Calf Tenderness Neurologic: positive: Other (Oriented to person not place) ED Treatment Course - LABORATORY CBC & Chemistry Diagram: 07/16/19 15:54 07/16/19 15:54 - ADDITIONAL ORDERS Additional order review: Laboratory Results 07/16/19 15:10 Stool Occult Blood Negative Medical Decision Making - Medical Decision Making 07/16/19 22:00 64 y/o M hx of CAD s/p CABG, HTN,HLD, ESRD, GERD , dementia, and dysphagia presents [facility] ED [facility] a [facility]. Labs/Imaging/Meds cbc, cmp, stool guiac, pt/inr, Results Lipase normal AST,ALT alk phosphate elevated. Pt. admitted to Dr. Maddie Davenport's service. Dr. Clement, covering for Dr. Mendez was consulted on the phone and agrees with the plan to admit him for bowel prep and subsequent colonoscopy. 07/16/19 22:12 *DC/Admit/Observation/Transfer Diagnosis at time of Disposition: Colonoscopy planned - Discharge Dispostion Condition at time of disposition: Stable - Referrals - Patient Instructions - Post Discharge Activity
[2019-07-16 16:23] LABS: BASO % 2.2 % (0-2.0); EOS % 36.8 % (0-4.5); HEMATOCRIT 38.8 % (35.4-49); HEMOGLOBIN 12.9 GM/dL (11.7-16.9); LYMPH % 19.8 % (8-40); MCH 31.2 pg (25.7-33.7); MCHC 33.2 g/dl (32.0-35.9); MEAN CELL VOLUME 94.1 fl (80-96); MEAN PLT VOLUME 10.2 fl (7.5-11.1); MONO % 12.1 % (3.8-10.2); NEUT % 29.1 % (42.8-82.8); PLATELET COUNT 106 K/MM3 (134-434); RBC 4.12 M/mm3 (4.00-5.60); RDW 16.5 % (11.9-15.9); WHITE BLOOD COUNT 3.5 K/mm3 (4.0-10.0)
[2019-07-16 16:28] LABS: INR 0.93 (0.83-1.09)
[2019-07-16 16:48] LABS: ALBUMIN 3.5 g/dl (3.4-5.0); ALK PHOS 276 U/L (45-117); ANION GAP 8 MMOL/L (8-16); BILIRUBIN,TOTAL 0.8 mg/dL (0.2-1); BLOOD UREA NITROGEN 47.2 mg/dL (7-18); CALCIUM 9.1 mg/dL (8.5-10.1); CHLORIDE 93 mmol/L (98-107); CO2 31 mmol/L (21-32); CREATININE 3.9 mg/dL (0.55-1.3); GLUCOSE,RANDOM 180 mg/dL (74-106); POTASSIUM 4.8 mmol/L (3.5-5.1); SGOT/AST 92 U/L (15-37); SGPT/ALT 69 U/L (13-61); SODIUM 132 mmol/L (136-145); TOT PROT 6.9 g/dl (6.4-8.2)
[2019-07-16 17:01] LABS: PLATELET ESTIMATE DECREASED
[2019-07-16 17:34] LABS: LIPASE 233 U/L (73-393)
--- NOTE | 2019-07-16 18:30 | HP ---
CHIEF COMPLAINT: sent to ER from OR for abnormal CT scan of abdomen PCP:Dr. Maddie Davenport HISTORY OF PRESENT ILLNESS: 64 year old mainly hong konger speaking male from [facility] with past medical history of coronary artery disease with prior CABG, hypertension, hyperlipidemia, ESRD(T--Wed), diabetes mellitus, dementia, GERD and dysphagia who was sent to the ER for rectal bleeding. Prior to hospitalization patient had an abnormal CT scan of abdomen which showed a core apple lesion. Stool guaiac was negative. Patient denies fever, abdominal pain, nausea, vomiting, diarrhea, chest pain or shortness of breath. Patient is a poor historian. He is awake and answers questions appropriately and oriented to self.He is being admitted to the Medicine Service and will have a GI evaluation with Dr. Gutiérrez who has been consulted for further recommendations.Per longterm he was sent to ER for a bowel prep and plan is for colonscopy as per Dr. Gutiérrez and awaiting for his recommendations. Laboratory findings notable for ast 92, alt69 and alk phos 276, sodium 132 and platelets of 106,000. Recent Travel: denies PAST MEDICAL HISTORY: coronary artery disease with prior CABG hypertension hyperlipidemia ESRD(last dialyisis on Wednesday) diabetes mellitus dementia GERD dysphagia PAST SURGICAL HISTORY: CABG Social History: Smoking:denies Alcohol:denies Drugs: denies Family History: noncontributory Allergies No Known Allergies Allergy (Verified 09/23/18 06:37) HOME MEDICATIONS: Home Medications Medication Instructions Recorded Acetaminophen [Tylenol] 650 mg PO Q6H PRN 07/19/18 Amlodipine Besylate [Norvasc -] 10 mg PO DAILY 07/19/18 Aspirin [Ecotrin] 325 mg PO DAILY 07/19/18 Atorvastatin Ca [Lipitor] 20 mg PO HS 07/19/18 Calcium Acetate [Phoslo -] 667 mg PO TIDCM 07/19/18 Carvedilol [Coreg -] 12.5 mg PO BID 07/19/18 Clonidine Patch [Catapres Tts 0.2 mg TD MCMULLEN 07/19/18 Patch -] Ergocalciferol [Vitamin D2] 50,000 unit PO MCMULLEN 07/19/18 Folic Acid - 1 mg PO DAILY 07/19/18 Metoprolol Tartrate [Lopressor -] 50 mg PO BID 07/19/18 hydrALAZINE HCL [Apresoline -] 25 mg PO TID 07/19/18 Gel Dressing [Dermasyn] 85 gm TP BID 09/23/18 Insulin Aspart [Novolog Flexpen] 100 unit SQ ASDIR 09/23/18 Heparin - 5,000 unit SQ BID vial 09/26/18 Lactobacillus Acidophilus [Bacid -] 1 tab PO DAILY tab 09/26/18 Vancomycin Oral Solution 125 mg PO Q6HPO #48 ml MDD 4 09/26/18 REVIEW OF SYSTEMS CONSTITUTIONAL: Absent: fever, chills, diaphoresis, generalized weakness, malaise, loss of appetite, weight change HEENT: Absent: rhinorrhea, nasal congestion, throat pain, throat swelling, difficulty swallowing, mouth swelling, ear pain, eye pain, visual changes CARDIOVASCULAR: Absent: chest pain, syncope, palpitations, irregular heart rate, lightheadedness , peripheral edema RESPIRATORY: Absent: cough, shortness of breath, dyspnea with exertion, orthopnea, wheezing, stridor, hemoptysis GASTROINTESTINAL: Absent: abdominal pain, abdominal distension, nausea, vomiting, diarrhea, constipation, melena, hematochezia GENITOURINARY: Absent: dysuria, frequency, urgency, hesitancy, hematuria, flank pain, genital pain MUSCULOSKELETAL: Absent: myalgia, arthralgia, joint swelling, back pain, neck pain SKIN: Absent: rash, itching, pallor HEMATOLOGIC/IMMUNOLOGIC: Absent: easy bleeding, easy bruising, lymphadenopathy, frequent infections ENDOCRINE: Absent: unexplained weight gain, unexplained weight loss, heat intolerance, cold intolerance NEUROLOGIC: Absent: headache, focal weakness or paresthesias, dizziness, unsteady gait, seizure, mental status changes, bladder or bowel incontinence PSYCHIATRIC: Absent: anxiety, depression, suicidal or homicidal ideation, hallucinations. PHYSICAL EXAMINATION Vital Signs - 24 hr 07/16/19 15:02 Temperature 98.3 F Pulse Rate 64 Respiratory 16 Rate Blood Pressure 152/61 O2 Sat by Pulse 99 Oximetry (%) GENERAL: awake, alert, and fully oriented no acute distress HEAD: normal EYES: pupils equal, round and reactive to light EARS, NOSE, THROAT: ears normal, nares patent NECK: normal no JVD LUNGS: breath sounds equal and clear to auscultation bilaterally no wheezes and no crackles no use of accessory muscles HEART: Regular rate and rhythm, normal S1 and S2 without murmur, rub or gallop. ABDOMEN: soft nontender not distended normoactive bowel sounds MUSCULOSKELETAL: normal range of motion at all joints UPPER EXTREMITIES: 2+ pulses warm well-perfused no cyanosis LOWER EXTREMITIES: 2+ pulses warm well-perfused no pitting edema NEUROLOGICAL: normal speech follows simple commands and answers questions appropriately PSYCHIATRIC: cooperative good eye contact SKIN: warm and dry lower extremities with dry skin Laboratory Results - last 24 hr 07/16/19 07/16/19 07/16/19 15:10 15:54 15:54 WBC 3.5 L RBC 4.12 Hgb 12.9 Hct 38.8 D MCV 94.1 MCH 31.2 MCHC 33.2 RDW 16.5 H Plt Count 106 L D MPV 10.2 D Absolute Neuts (auto) 1.0 L Total Counted 100 Neutrophils % 29.1 L D Neutrophils % (Manual) 28.0 L D Lymphocytes % 19.8 D Lymphocytes % (Manual) 20.0 D Monocytes % 12.1 H Monocytes % (Manual) 15 H Eosinophils % 36.8 H* D Eosinophils % (Manual) 37.0 H D Basophils % 2.2 H D Nucleated RBC % 0 Platelet Estimate Decreased Platelet Comment No clumping noted PT with INR INR PTT (Actin FS) 31.9 Sodium Potassium Chloride Carbon Dioxide Anion Gap BUN Creatinine Est GFR (CKD-EPI)AfAm Est GFR (CKD-EPI)NonAf Random Glucose Calcium Total Bilirubin AST ALT Alkaline Phosphatase Troponin I Total Protein Albumin Lipase Stool Occult Blood Negative 07/16/19 07/16/19 07/16/19 15:54 15:54 15:54 WBC RBC Hgb Hct MCV MCH MCHC RDW Plt Count MPV Absolute Neuts (auto) Total Counted Neutrophils % Neutrophils % (Manual) Lymphocytes % Lymphocytes % (Manual) Monocytes % Monocytes % (Manual) Eosinophils % Eosinophils % (Manual) Basophils % Nucleated RBC % Platelet Estimate Platelet Comment PT with INR 11.00 INR 0.93 PTT (Actin FS) Sodium 132 L Potassium 4.8 Chloride 93 L Carbon Dioxide 31 Anion Gap 8 BUN 47.2 H Creatinine 3.9 H Est GFR (CKD-EPI)AfAm 17.96 Est GFR (CKD-EPI)NonAf 15.49 Random Glucose 180 H Calcium 9.1 Total Bilirubin 0.8 AST 92 H ALT 69 H Alkaline Phosphatase 276 H Troponin I < 0.02 Cancelled Total Protein 6.9 Albumin 3.5 Lipase 233 Stool Occult Blood ASSESSMENT/PLAN: Mr. White is a 64 year old male here from [facility] with past medical history of coronary artery disease with prior CABG, hypertension, hyperlipidemia, ESRD(T-), diabetes mellitus, dementia, GERD and dysphagia who had rectal bleeding. Prior to hospitalization he had an abnormal CT scan of abdomen showing a core apple lesion. He is being admitted to the Medicine Service and will have a GI evaluation and awaiting final recommendations. #1 Rectal Bleeding(abnormal CT scan of abdomen in outpatient setting showing a apple core lesion) Workup- stool occult blood-negative, LFT's ast 92, alt 69, alk phos 276, WBC, hematocrit and hemoglobin nl, platelets 103,000 Currently denies abdominal pain, fever,nausea, vomiting, he is afebrile. As reported by OR plan is for bowel prep and colonoscopy. GI-Dr. Adams consulted for recommendations and timing to be determined of colonoscopy and when to initiate bowel prep. Will keep NPO after midnight IVF started NS at 60cc/hr #2 Coronary Artery Disease Troponin normal. He denies active anginal symptoms Will hold aspirin and atorvastatin (has elevated LFT's ) and will need to be resumed once cleared by GI #3 Hypertension SBP 150's, asymptomatic Continue with hydralazine, coreg, amlodipine and clonidine patch #4 Hyperlipidemia LFT's elevated. Will hold statin therapy for now #5 Diabetes Mellitus Accucheks before meals and at bedtime Insulin as per sliding scale #6 End Stage Renal Failure Consulted Nephrology- Dr. Sam for hemodialysis #7 Hyponatremia Started IVF NS at 60cc/hr Continue to monitor closely DVT -TEDS and SCD's avoid systemic anticoagulation until cleared by GI, has history of DVT FEN NPO now, continue with IVF NS at 60cc/hr patient has history of dysphagia, will consult speech and swallow Visit type - Emergency Visit Emergency Visit: Yes ED Registration Date: 07/16/19 Care time: The patient presented to the Emergency Department on the above date and was hospitalized for further evaluation of their emergent condition. - New Patient This patient is new to me today: Yes Date on this admission: 07/16/19 - Critical Care Critical Care patient: No
--- NOTE | 2019-07-16 18:31 | PDOC ---
Documentation entered by Marion Rao SCRIBE, acting as scribe for Aj Iyre MD. Aj Iyer MD: This documentation has been prepared by the budibe, Marion Rao SCRIBE, under my direction and personally reviewed by me in its entirety. I confirm that the documentation accurately reflects all work, treatment, procedures, and medical decision making performed by me. Attending Attestation - Resident Resident Name: Alverto Mcnair - ED Attending Attestation I have performed the following: I have examined & evaluated the patient, The case was reviewed & discussed with the resident, I agree w/resident's findings & plan, Exceptions are as noted - HPI HPI: 07/16/19 17:52 The patient is a 64-year-old male with a past medical history significant for ESRD (on HD T, TH, Sat), HTN, CAD s/p CABG, IDDM who presents to the emergency department from [facility] for rectal bleeding. The patient is unsure of why he is sent to the ER. The patient denies having any complaint. Per [place], the patient was sent to the ER by Dr. Gutiérrez for work-up and prep for a colonoscopy as he had an "apple core lesion" on CT Allergies: NKDA Social history: No reported history of tobacco, alcohol or recreational drugs. Surgical history: CABG PCP: Dr. Jeanette Davenport - Physicial Exam PE: 07/16/19 17:52 GENERAL: Awake, alert, in no distress. Chronically ill appearing HEAD: No signs of trauma EYES: PERRLA, EOMI, sclera anicteric, conjunctiva clear ENT: Nares patent, oropharynx clear without exudates. Moist mucosa NECK: Normal ROM, supple, no lymphadenopathy, JVD, or masses LUNGS: Breath sounds equal, clear to auscultation bilaterally. No wheezes, and no crackles HEART: Regular rate and rhythm, normal S1 and S2, no murmurs, rubs or gallops ABDOMEN: Soft, nontender, normoactive bowel sounds. No guarding, no rebound. No masses : brown stool in vault, no gross blood EXTREMITIES: Normal range of motion, no edema. No erythema, or tenderness BACK: No midline spinal tenderness in cervical/thoracic/lumbar region NEUROLOGICAL: Normal speech, cranial nerves intact, SKIN: Warm, Dry, normal turgor, no rashes or lesions noted. - Medical Decision Making 07/16/19 17:[address] Gutiérrez, waiting for a call back from covering doctor Dr. Parson. 07/16/19 18:26 64yo M prsents to the ED for admission for colonoscopy prep per [place] staff History from pt limited due to clinical condition Per [place], pt had apple core lesion on CT requiring colonsocopy but prep was not done properly in NH. Dr. Gutiérrez requested admission for bowel prep for colonsocopy. Attempted to call Dr. Gutiérrez to discuss, awaiting call back Guaic here negative, but given possible rectal bleed with abnormal CTAP, pt admitted to hospitalist for further mgmt Case discussed with MARCELL Pereira, pt accepted for admission Case discussed in detail with admitting physician including history, physical exam and ancillary studies. Admitting physician has assumed care for the patient, will follow all pending diagnostics and will complete the evaluation and treatment.
[2019-07-16] MEDS: SODIUM CHLORIDE 1,000 ML IV SCH ×2 (20:15→22:00)
[2019-07-16] MEDS: cloNIDine-TTS 0.2 MG/24 HOURS PATCH.TDWK TD SCH (20:15)
[2019-07-16] MEDS: ERGOCALCIFEROL (VIT D2) 50,000 UNIT (1.25 MG) CAPSULE PO SCH (20:15)
[2019-07-16] MEDS ORDERED: ATORVASTATIN CA 20 MG TABLET (FP) PO SCH (22:00)
[2019-07-16] MEDS ORDERED: METOPROLOL TARTRATE 50 MG TABLET (FP) PO SCH (22:00)
[2019-07-16] MEDS: CARVEDILOL 12.5 MG TABLET (FP) PO SCH (22:54)
[2019-07-16] MEDS: hydrALAZINE HCL 25 MG TABLET (FP) PO SCH (22:54)
[2019-07-16] MEDS: INSULIN SLIDING SCALE (NOVOLOG) 1 VIAL SQ SCH (22:54)
[2019-07-17] MEDS: hydrALAZINE HCL 25 MG TABLET (FP) PO SCH ×3 (05:53→22:20)
[2019-07-17 07:56] LABS: HEMATOCRIT 37.2 % (35.4-49); HEMOGLOBIN 12.4 GM/dL (11.7-16.9); MCH 31.4 pg (25.7-33.7); MCHC 33.5 g/dl (32.0-35.9); MEAN CELL VOLUME 93.9 fl (80-96); MEAN PLT VOLUME 9.9 fl (7.5-11.1); PLATELET COUNT 97 K/MM3 (134-434); RBC 3.96 M/mm3 (4.00-5.60); RDW 16.4 % (11.9-15.9); WHITE BLOOD COUNT 3.1 K/mm3 (4.0-10.0)
[2019-07-17 08:13] LABS: ALBUMIN 3.4 g/dl (3.4-5.0); BILIRUBIN,TOTAL 0.8 mg/dL (0.2-1); BLOOD UREA NITROGEN 56.2 mg/dL (7-18); CALCIUM 8.9 mg/dL (8.5-10.1); CREATININE 4.5 mg/dL (0.55-1.3); POTASSIUM 4.4 mmol/L (3.5-5.1); TOT PROT 6.4 g/dl (6.4-8.2)
--- NOTE | 2019-07-17 08:58 | CON.GI ---
Consult Consult Specialty:: Gastroenterology Reason for Consultation:: Rectal bleeding, abnormal CT imaging - History of Present Illness History of Present Illness: 64yo male from [facility] h/o coronary artery disease/CABG on ASA 325mg, hypertension, ESRD on HD, DM, dementia, GERD who was sent to the ER for reported rectal bleeding with recent CT abd/pelvis revealing an apple core lesion. 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 Denies abdominal pain or rectal bleeding. States he thinks he had a colonoscopy 1-2 years ago. Unsure if he has lost weight. Appetite has been ok. Unclear if family h/o colon ca. Of note was hospitalized in 09/2018 with diarrhea, had CT in 09/2018 revealing pancolonic thickening. Treated empirically with vancomycin and advised outpt follow up at that time. CT abd/pelvis (09/2018): pancolonic thickening CT abd/pelvis(07/16/19): thickened, irregular appearing cecum, possible apple core lesion - History Source History Provided By: Patient, Medical Record - Past Medical History Cardio/Vascular: Yes: CAD (s/p CABG), HTN, Hyperlipdemia Gastrointestinal: Yes: Constipation Renal/: Yes: Renal Failure, Hemodialysis - Past Surgical History Past Surgical History: Yes: CABG - Alcohol/Substance Use Hx Alcohol Use: No - Smoking History Smoking history: Never smoked Have you smoked in the past 12 months: No Aproximately how many cigarettes per day: 0 - Social History Usual Living Arrangement: Senior Care ADL: Support Services Home Medications - Allergies Allergies/Adverse Reactions: Allergies Allergy/AdvReac Type Severity Reaction Status Date / Time No Known Allergies Allergy Verified 09/23/18 06:37 - Home Medications Home Medications: Ambulatory Orders Acetaminophen [Tylenol] 650 mg PO Q6H PRN 07/19/18 Amlodipine Besylate [Norvasc -] 10 mg PO DAILY 07/19/18 Atorvastatin Ca [Lipitor] 10 mg PO HS 07/19/18 Calcium Acetate [Phoslo -] 667 mg PO TIDCM 07/19/18 Clonidine Patch [Catapres Tts Patch -] 0.2 mg TD MCMULLEN 07/19/18 Ergocalciferol [Vitamin D2] 50,000 unit PO MCMULLEN 07/19/18 Metoprolol Tartrate [Lopressor -] 50 mg PO BID 07/19/18 hydrALAZINE HCL [Apresoline -] 50 mg PO TID 07/19/18 Gel Dressing [Dermasyn] 85 gm TP BID 09/23/18 Insulin Aspart [Novolog Flexpen] 100 unit SQ ASDIR 09/23/18 Heparin - 5,000 unit SQ BID vial 09/26/18 Vancomycin Oral Solution 125 mg PO Q6HPO #48 ml MDD 4 09/26/18 Aspirin [Aspirin EC] 81 mg PO DAILY 07/17/19 Carvedilol [Coreg -] 25 mg PO BID 07/17/19 Folic Acid 1 mg PO DAILY 07/17/19 Lactobacillus Acidophilus [Bacid -] 1 cap PO DAILY 07/17/19 Lisinopril 10 mg PO DAILY 07/17/19 Mirtazapine 30 mg PO HS 07/17/19 Nifedipine [Procardia Xl] 30 mg PO DAILY 07/17/19 Nifedipine [Procardia Xl] 30 mg PO DAILY 07/17/19 Sennosides [Senokot] 8.6 mg PO DAILY 07/17/19 Vitamin B Comp W-C [Nephro-Alejandro -] 0.8 mg PO DAILY 07/17/19 Vitamin B Comp W-C [Nephro-Alejandro -] 0.8 tablet PO DAILY 07/17/19 Review of Systems Unable to obtain ROS, reason: Limited history from pt - Review of Systems Constitutional: reports: No Symptoms Cardiovascular: reports: No Symptoms Respiratory: reports: No Symptoms Gastrointestinal: reports: No Symptoms Physical Exam-GI Vital Signs: Vital Signs Temperature 98.5 F 07/17/19 06:00 Pulse Rate 61 07/17/19 06:00 Respiratory Rate 18 07/17/19 06:00 Blood Pressure 143/57 L 07/17/19 06:00 O2 Sat by Pulse Oximetry (%) 97 07/17/19 01:00 Constitutional: Yes: No Distress, Calm, Other (Oriented to person, not to place or time (states its 2006)) Cardiovascular: Yes: WNL, Regular Rate and Rhythm Respiratory: Yes: WNL, Regular, CTA Bilaterally ...Palpate: Yes: Other (Abd soft, nontender, non distended Rectal exam: scant light brown stool, no blood seen) Labs: CBC, BMP 07/17/19 07:00 07/17/19 07:00 INR, PTT INR 0.93 (0.83-1.09) 07/16/19 15:54 Imaging - Results Cat Scan: Report Reviewed, Image Reviewed Problem List - Problems (1) Colonic thickening Assessment/Plan: 64yo male from [facility] h/o coronary artery disease/CABG on ASA 325mg, hypertension, ESRD on HD, DM, dementia, GERD who was sent to the ER for reported rectal bleeding with recent CT abd/pelvis revealing an apple core lesion/thickening at cecum. No overt bleeding. Hb stable. Pt would require colonoscopy for further evaluation, however pts mentation appears to be fluctuating, not oriented and unclear if has capacity at this time. -Continue to monitor Hb -Clear liquid diet for now -Continue to hold ASA 325mg if no contraindication from primary standpoint in preparation for colonoscopy and need to clarify last dose ?day prior to admission (asa 81mg would be ok if deemed indicated) -Attempted to contact pts daughter, GREGORY (Piedad) however no answer -Also attempted to contact nursing clean up supervisor at [facility] however unavailable -Timing of colonoscopy to be determined pending clarification regarding decision making capacity and ASA dosage Attempted to contact Dr. Davenport to discuss above, await call back. Code(s): K63.9 - DISEASE OF INTESTINE, UNSPECIFIED
--- NOTE | 2019-07-17 09:33 | PN ---
Progress Note (short form) - Note Progress Note: pt seen/ examined chart reviewed awake/comfortable denies cp/sob/abd pain Vital Signs Temp 98.5 F 07/17/19 06:00 Pulse 61 07/17/19 06:00 Resp 18 07/17/19 06:00 BP 143/57 L 07/17/19 06:00 Pulse Ox 97 07/17/19 01:00 Intake & Output 07/16/19 07/16/19 07/17/19 11:59 23:59 11:59 Intake Total 240 420 Balance 240 420 Weight 125 lb 14.143 oz 122 lb 4.8 oz Intake: IV 420 Normal Saline - 1,000 ml 420 @ 60 mls/hr IV ASDIR BRAD Rx#:[id number] Oral 240 Other: Voiding Method Toilet Diaper # Unmeasured Voids Void 1 Bowel Movement No Height 5 ft 5 in 5 ft 5 in Body Mass Index (BMI) 20.9 20.3 Weight Measurement Method Standing Scale Weight Measurement Method Est/Stated by Patient Active Medications Amlodipine Besylate (Norvasc -) 10 mg PO DAILY [facility] Carvedilol (Coreg -) 12.5 mg PO BID [facility] Last Admin: 07/16/19 22:54 Dose: 12.5 mg Clonidine HCl (Catapres Tts Patch -) 0.2 mg TD MCMULLEN [facility] Last Admin: 07/16/19 20:15 Dose: 0.2 mg Ergocalciferol (Drisdol -) 50,000 unit PO MCMULLEN [facility] Last Admin: 07/16/19 20:15 Dose: 50,000 unit Folic Acid (Folic Acid -) 1 mg PO DAILY [facility] Hydralazine HCl (Apresoline -) 25 mg PO TID [facility] Last Admin: 07/17/19 05:53 Dose: 25 mg Sodium Chloride (Normal Saline -) 1,000 mls @ 60 mls/hr IV ASDIR BRAD Last Admin: 07/16/19 22:00 Dose: 60 mls/hr Insulin Aspart (Novolog Vial Sliding Scale -) 1 vial SQ HS [facility]; Protocol Last Admin: 07/16/19 22:54 Dose: Not Given CBC,CMP WBC 3.1 K/mm3 (4.0-10.0) L 07/17/19 07:00 RBC 3.96 M/mm3 (4.00-5.60) L 07/17/19 07:00 Hgb 12.4 GM/dL (11.7-16.9) 07/17/19 07:00 Hct 37.2 % (35.4-49) 07/17/19 07:00 MCV 93.9 fl (80-96) 07/17/19 07:00 MCH 31.4 pg (25.7-33.7) 07/17/19 07:00 MCHC 33.5 g/dl (32.0-35.9) 07/17/19 07:00 RDW 16.4 % (11.9-15.9) H 07/17/19 07:00 Plt Count 97 K/MM3 (134-434) L 07/17/19 07:00 MPV 9.9 fl (7.5-11.1) 07/17/19 07:00 Absolute Neuts (auto) 1.0 K/mm3 (1.5-8.0) L 07/16/19 15:54 Total Counted 100 07/16/19 15:54 Neutrophils % 29.1 % (42.8-82.8) L D 07/16/19 15:54 Neutrophils % (Manual) 28.0 % (42.8-82.8) L D 07/16/19 15:54 Lymphocytes % 19.8 % (8-40) D 07/16/19 15:54 Lymphocytes % (Manual) 20.0 % (8-40) D 07/16/19 15:54 Monocytes % 12.1 % (3.8-10.2) H 07/16/19 15:54 Monocytes % (Manual) 15 % (3.8-10.2) H 07/16/19 15:54 Eosinophils % 36.8 % (0-4.5) H* D 07/16/19 15:54 Eosinophils % (Manual) 37.0 % (0-4.5) H D 07/16/19 15:54 Basophils % 2.2 % (0-2.0) H D 07/16/19 15:54 Nucleated RBC % 0 % (0-0) 07/16/19 15:54 Platelet Estimate Decreased 07/16/19 15:54 Platelet Comment No clumping noted 07/16/19 15:54 Sodium 134 mmol/L (136-145) L 07/17/19 07:00 Potassium 4.4 mmol/L (3.5-5.1) 07/17/19 07:00 Chloride 95 mmol/L (98-107) L 07/17/19 07:00 Carbon Dioxide 29 mmol/L (21-32) 07/17/19 07:00 Anion Gap 10 MMOL/L (8-16) 07/17/19 07:00 BUN 56.2 mg/dL (7-18) H 07/17/19 07:00 Creatinine 4.5 mg/dL (0.55-1.3) H 07/17/19 07:00 Est GFR (CKD-EPI)AfAm 15.10 07/17/19 07:00 Est GFR (CKD-EPI)NonAf 13.03 07/17/19 07:00 POC Glucometer 125 UNITS (80-120) 07/16/19 22:53 Random Glucose 66 mg/dL (74-106) L 07/17/19 07:00 Calcium 8.9 mg/dL (8.5-10.1) 07/17/19 07:00 Total Bilirubin 0.8 mg/dL (0.2-1) 07/17/19 07:00 AST 51 U/L (15-37) H 07/17/19 07:00 ALT 55 U/L (13-61) 07/17/19 07:00 Alkaline Phosphatase 258 U/L (45-117) H 07/17/19 07:00 Troponin I < 0.02 ng/ml (0.00-0.05) 07/16/19 15:54 Total Protein 6.4 g/dl (6.4-8.2) 07/17/19 07:00 Albumin 3.4 g/dl (3.4-5.0) 07/17/19 07:00 Lipase 233 U/L (73-393) 07/16/19 15:54 CBC, BMP 07/17/19 07:00 07/17/19 07:00 ekg-- Not done cxr- not done Physical Exam Awake/ comfortable heent- no jvd. No bruie Lungs- diminished at bases . cvs- s1, s2 rrr abd - soft ext- no edema Neuro- awake A/P Abnormal ct scan- colon apple core lesion cad - s/p cabg esrd- hd Dementia Diabetes ekg/ cxr/ tsh/ HbA1c ordered. Gi to follow for colonoscopy currently npo mild hydration will follow Problem List - Problems (1) Colonic thickening Code(s): K63.9 - DISEASE OF INTESTINE, UNSPECIFIED (2) Colonoscopy planned Code(s): BWG6236 - (3) CAD (coronary artery disease) Code(s): I25.10 - ATHSCL HEART DISEASE OF [place] CORONARY ARTERY W/O ANG PCTRS Qualifiers: Coronary Disease-Associated Artery/Lesion type: [place] artery [place] vs. transplanted heart: [place] heart Associated angina: without angina Qualified Code(s): I25.10 - Atherosclerotic heart disease of [place] coronary artery without angina pectoris (4) ESRD (end stage renal disease) Code(s): N18.6 - END STAGE RENAL DISEASE
[2019-07-17] MEDS: FOLIC ACID 1 MG TABLET (FP) PO SCH (12:09)
[2019-07-17] MEDS: amLODIPine BESYLATE 10 MG TABLET (FP) PO SCH (12:09)
[2019-07-17] MEDS: CARVEDILOL 12.5 MG TABLET (FP) PO SCH ×2 (12:09→22:20)
--- NOTE | 2019-07-17 12:46 | CONSULT ---
Consult Consult Specialty:: Nephrology Reason for Consultation:: ESRD - History of Present Illness Chief Complaint: rectal bleed History of Present Illness: Pt is a 64 year old male with pmhx of esrd, htn, hld, gerd, cad, cabg, and dementia who was sent in for GI bleed. He is on HD and I was asked to evaluate him. He gets HD on a TTS schedule. His last HD was on Wednesday. He is unable to give history. He was found to have an apple core lesion on recent ct scan. He is admitted for GI workup/ - History Source History Provided By: Medical Record - Past Medical History Cardio/Vascular: Yes: CAD (s/p CABG), HTN, Hyperlipdemia Gastrointestinal: Yes: Constipation Renal/: Yes: Renal Failure, Hemodialysis - Past Surgical History Past Surgical History: Yes: CABG - Alcohol/Substance Use Hx Alcohol Use: No - Smoking History Smoking history: Never smoked Have you smoked in the past 12 months: No Aproximately how many cigarettes per day: 0 - Social History Usual Living Arrangement: Prison ADL: Support Services Home Medications - Allergies Allergies/Adverse Reactions: Allergies Allergy/AdvReac Type Severity Reaction Status Date / Time No Known Allergies Allergy Verified 09/23/18 06:37 - Home Medications Home Medications: Ambulatory Orders Acetaminophen [Tylenol] 650 mg PO Q6H PRN 07/19/18 Amlodipine Besylate [Norvasc -] 10 mg PO DAILY 07/19/18 Atorvastatin Ca [Lipitor] 10 mg PO HS 07/19/18 Calcium Acetate [Phoslo -] 667 mg PO TIDCM 07/19/18 Clonidine Patch [Catapres Tts Patch -] 0.2 mg TD MCMULLEN 07/19/18 Ergocalciferol [Vitamin D2] 50,000 unit PO MCMULLEN 07/19/18 Metoprolol Tartrate [Lopressor -] 50 mg PO BID 07/19/18 hydrALAZINE HCL [Apresoline -] 50 mg PO TID 07/19/18 Gel Dressing [Dermasyn] 85 gm TP BID 09/23/18 Insulin Aspart [Novolog Flexpen] 100 unit SQ ASDIR 09/23/18 Heparin - 5,000 unit SQ BID vial 09/26/18 Vancomycin Oral Solution 125 mg PO Q6HPO #48 ml MDD 4 09/26/18 Aspirin [Aspirin EC] 81 mg PO DAILY 07/17/19 Carvedilol [Coreg -] 25 mg PO BID 07/17/19 Folic Acid 1 mg PO DAILY 07/17/19 Lactobacillus Acidophilus [Bacid -] 1 cap PO DAILY 07/17/19 Lisinopril 10 mg PO DAILY 07/17/19 Mirtazapine 30 mg PO HS 07/17/19 Nifedipine [Procardia Xl] 30 mg PO DAILY 07/17/19 Nifedipine [Procardia Xl] 30 mg PO DAILY 07/17/19 Sennosides [Senokot] 8.6 mg PO DAILY 07/17/19 Vitamin B Comp W-C [Nephro-Alejandro -] 0.8 mg PO DAILY 07/17/19 Vitamin B Comp W-C [Nephro-Alejandro -] 0.8 tablet PO DAILY 07/17/19 Family Disease History - Family Disease History Family History: Denies Review of Systems Unable to obtain ROS, reason: says no to everything - Review of Systems Constitutional: reports: No Symptoms Eyes: reports: No Symptoms Neck: reports: No Symptoms Cardiovascular: reports: No Symptoms Respiratory: reports: No Symptoms Gastrointestinal: reports: Rectal Bleeding Genitourinary: reports: No Symptoms Musculoskeletal: reports: No Symptoms Integumentary: reports: No Symptoms Physical Exam Vital Signs: Vital Signs Temperature 98 F 07/17/19 10:00 Pulse Rate 61 07/17/19 10:00 Respiratory Rate 20 07/17/19 10:00 Blood Pressure 133/63 07/17/19 10:00 O2 Sat by Pulse Oximetry (%) 97 07/17/19 01:00 Constitutional: Yes: Calm Eyes: Yes: Conjunctiva Clear HENT: Yes: Atraumatic Neck: Yes: Supple Cardiovascular: Yes: S1, S2 Respiratory: Yes: CTA Bilaterally Gastrointestinal: Yes: Soft Renal/: Yes: Incontinence Musculoskeletal: Yes: Muscle Weakness Edema: No Neurological: Yes: Confusion Labs: CBC, BMP 07/17/19 07:00 07/17/19 07:00 Problem List - Problems (1) ESRD (end stage renal disease) Code(s): N18.6 - END STAGE RENAL DISEASE Assessment/Plan Current Medications Generic Name Dose Route Start Last Admin Trade Name Freq PRN Reason Stop Dose Admin Amlodipine Besylate 10 mg 07/17/19 10:00 07/17/19 12:09 Norvasc - PO 10 mg DAILY BRAD Administration Carvedilol 12.5 mg 07/16/19 22:00 07/17/19 12:09 Coreg - PO 12.5 mg BID BRAD Administration Clonidine HCl 0.2 mg 07/16/19 19:00 07/16/19 20:15 Catapres Tts Patch - TD 0.2 mg MCMULLEN BRAD Administration Ergocalciferol 50,000 unit 07/16/19 19:00 07/16/19 20:15 Drisdol - PO 50,000 unit MCMULLEN [facility]AD Administration Folic Acid 1 mg 07/17/19 10:00 07/17/19 12:09 Folic Acid - PO 1 mg DAILY BRAD Administration Hydralazine HCl 25 mg 07/16/19 22:00 07/17/19 05:53 Apresoline - PO 25 mg TID BRAD Administration Sodium Chloride 1,000 mls @ 60 mls/hr 07/16/19 18:15 07/16/19 22:00 Normal Saline - IV 60 mls/hr ASDIR BRAD Administration Insulin Aspart 1 vial 07/16/19 22:00 07/16/19 22:54 Novolog Vial Sliding Scale - SQ Not Given HS BRAD Protocol Impression 1. ESRD 2. GI bleed 3. dementia 4. dysphagia 5. anemia 6. CAD 7. hx CABG 8. DM 9. HLD Plan - will arrange for HD tomorrow - monitor hg - GI workup in progress - renal diet Dr Siu
[2019-07-17] MEDS ORDERED: SODIUM CHLORIDE 250 ML IV PRN (12:48)
--- NOTE | 2019-07-17 12:50 | EKG ---
Test Reason : Blood Pressure : / mmHG Vent. Rate : 060 BPM Atrial Rate : 060 BPM P-R Int : 174 ms QRS Dur : 094 ms QT Int : 452 ms P-R-T Axes : 039 -16 031 degrees QTc Int : 452 ms NORMAL SINUS RHYTHM [place] (CITED ON OR BEFORE 16-JUL-2019) ABNORMAL ECG WHEN COMPARED WITH ECG OF 16-JUL-2019 15:51, NO SIGNIFICANT CHANGE WAS FOUND Confirmed by LOLLY AMBROSIO, CARLITO ([id number]) on 07/17/2019 12:50:44 PM Referred By: MILAGROS Pemberton DR Confirmed By:CARLITO AMBROCIO MD
--- NOTE | 2019-07-17 13:00 | EKG ---
Test Reason : Blood Pressure : / mmHG Vent. Rate : 062 BPM Atrial Rate : 062 BPM P-R Int : 178 ms QRS Dur : 096 ms QT Int : 460 ms P-R-T Axes : 031 -18 032 degrees QTc Int : 466 ms NORMAL SINUS RHYTHM [place] [facility] , AGE UNDETERMINED ABNORMAL ECG WHEN COMPARED WITH ECG OF 23-SEP-2018 07:55, ANTEROSEPTAL INFARCT PATTERN IS SEEN Confirmed by CARLITO AMBROCIO MD ([id number]) on 07/17/2019 1:00:20 PM Referred By: Confirmed By:CARLITO AMBROCIO MD
[2019-07-17] MEDS: SODIUM CHLORIDE 1,000 ML IV SCH (21:21)
[2019-07-17] MEDS: INSULIN SLIDING SCALE (NOVOLOG) 1 VIAL SQ SCH (22:20)
[2019-07-18] MEDS: hydrALAZINE HCL 25 MG TABLET (FP) PO SCH ×3 (06:19→21:40)
[2019-07-18 10:06] LABS: HEMATOCRIT 39.2 % (35.4-49); MCH 31.2 pg (25.7-33.7); MCHC 33.1 g/dl (32.0-35.9); MEAN CELL VOLUME 94.1 fl (80-96); MEAN PLT VOLUME 10.1 fl (7.5-11.1); RBC 4.16 M/mm3 (4.00-5.60); RDW 16.4 % (11.9-15.9)
[2019-07-18 10:13] LABS: PLATELET COUNT 97 K/MM3 (134-434)
[2019-07-18 10:28] LABS: CALCIUM 9.1 mg/dL (8.5-10.1); CREATININE 5.6 mg/dL (0.55-1.3); POTASSIUM 5.2 mmol/L (3.5-5.1)
--- NOTE | 2019-07-18 11:31 | PN ---
Progress Note (short form) - Note Progress Note: Events noted admitted for abnormal CT abd- anemia, weight loss pt examined in dialysis confused at baseline Vital Signs - 24 hr 07/17/19 07/17/19 07/17/19 14:35 18:30 21:00 Temperature 97.0 F L 97.8 F Pulse Rate 59 L 58 L Respiratory 20 22 H Rate Blood Pressure 132/62 121/59 L O2 Sat by Pulse 100 Oximetry (%) 07/17/19 07/18/19 07/18/19 22:00 04:00 09:08 Temperature 97.8 F 97.7 F 97.8 F Pulse Rate 60 60 61 Respiratory 22 H 20 22 H Rate Blood Pressure 143/66 152/70 136/63 O2 Sat by Pulse Oximetry (%) 07/18/19 07/18/19 07/18/19 09:25 09:30 10:00 Temperature Pulse Rate 58 L 58 L 60 Respiratory 18 18 18 Rate Blood Pressure 174/70 H 151/68 147/65 O2 Sat by Pulse Oximetry (%) 07/18/19 10:30 Temperature Pulse Rate 64 Respiratory 18 Rate Blood Pressure 161/73 O2 Sat by Pulse Oximetry (%) Current Medications Generic Name Dose Route Start Last Admin Trade Name Freq PRN Reason Stop Dose Admin Amlodipine Besylate 10 mg 07/17/19 10:00 07/17/19 12:09 Norvasc - PO 10 mg DAILY BRAD Administration Carvedilol 12.5 mg 07/16/19 22:00 07/17/19 22:20 Coreg - PO 12.5 mg BID BRAD Administration Clonidine HCl 0.2 mg 07/16/19 19:00 07/16/19 20:15 Catapres Tts Patch - TD 0.2 mg MCMULLEN [facility]AD Administration Ergocalciferol 50,000 unit 07/16/19 19:00 07/16/19 20:15 Drisdol - PO 50,000 unit MCMULLEN [facility]AD Administration Folic Acid 1 mg 07/17/19 10:00 07/17/19 12:09 Folic Acid - PO 1 mg DAILY BRAD Administration Hydralazine HCl 25 mg 07/16/19 22:00 07/18/19 06:19 Apresoline - PO 25 mg TID BRAD Administration Sodium Chloride 250 mls @ 3,000 mls/hr 07/17/19 12:48 Normal Saline - IV 07/18/19 12:48 PRN PRN Hypotension during Dialysis Insulin Aspart 1 vial 07/16/19 22:00 07/17/19 22:20 Novolog Vial Sliding Scale - SQ Not Given HS [facility] Protocol Laboratory Results - last 24 hr 07/17/19 07/17/19 07/17/19 07:00 07:21 22:18 WBC RBC Hgb Hct MCV MCH MCHC RDW Plt Count MPV Sodium 134 L Potassium 4.4 Chloride 95 L Carbon Dioxide 29 Anion Gap 10 BUN 56.2 H Creatinine 4.5 H Est GFR (CKD-EPI)AfAm 15.10 Est GFR (CKD-EPI)NonAf 13.03 POC Glucometer 118 Random Glucose 66 L Hemoglobin A1c % 5.6 Calcium 8.9 Total Bilirubin 0.8 AST 51 H ALT 55 Alkaline Phosphatase 258 H Total Protein 6.4 Albumin 3.4 TSH 2.25 D 07/18/19 07/18/19 07/18/19 06:16 09:30 09:37 WBC 3.0 L RBC 4.16 Hgb 13.0 Hct 39.2 MCV 94.1 MCH 31.2 MCHC 33.1 RDW 16.4 H Plt Count 97 L MPV 10.1 Sodium 128 L Potassium 5.2 H Chloride 92 L Carbon Dioxide 25 Anion Gap 11 BUN 67.0 H Creatinine 5.6 H Est GFR (CKD-EPI)AfAm 11.60 Est GFR (CKD-EPI)NonAf 10.00 POC Glucometer 65 Random Glucose 123 H Hemoglobin A1c % Calcium 9.1 Total Bilirubin AST ALT Alkaline Phosphatase Total Protein Albumin TSH S1 S2 RRR Lungs decreased Abd- soft, NT no edema PLAN apple core lesion on CT abd weight loss ESRD on HD -- called the phone numbers provided by [place] for daughter and brother--- unable to reach family at this time -- GI eval noted -- will need to call Ethics consult -- colonoscopy on hold pending consent -- last ASA dose was on 07/16/19 -- continue with other meds -- HD per renal Problem List - Problems (1) Colonic thickening Code(s): K63.9 - DISEASE OF INTESTINE, UNSPECIFIED (2) CAD (coronary artery disease) Code(s): I25.10 - ATHSCL HEART DISEASE OF [place] CORONARY ARTERY W/O ANG PCTRS Qualifiers: Coronary Disease-Associated Artery/Lesion type: [place] artery [place] vs. transplanted heart: [place] heart Associated angina: without angina Qualified Code(s): I25.10 - Atherosclerotic heart disease of [place] coronary artery without angina pectoris (3) ESRD (end stage renal disease) Code(s): N18.6 - END STAGE RENAL DISEASE (4) HTN (hypertension) Code(s): I10 - ESSENTIAL (PRIMARY) HYPERTENSION (5) Hypertensive cardiomyopathy Code(s): I11.9 - HYPERTENSIVE HEART DISEASE WITHOUT HEART FAILURE; I43 - CARDIOMYOPATHY IN DISEASES CLASSIFIED ELSEWHERE Qualifiers: Heart failure presence: with heart failure Qualified Code(s): I11.0 - Hypertensive heart disease with heart failure; I43 - Cardiomyopathy in diseases classified elsewhere (6) Weight loss Code(s): R63.4 - ABNORMAL WEIGHT LOSS
[2019-07-18 12:22] VITALS: BMI 20.2
--- NOTE | 2019-07-18 13:24 | CONSULT ---
Consultation: REQUESTING PROVIDER: Dr. Davenport CONSULT REQUEST: We have been asked to medically evaluate this patient for Applecore lesion/eosinophilia HISTORY OF PRESENT ILLNESS: 64 year old male with a history of end stage renal disease (TTHS), coronary artery disease, CABG, hypertension, diabetes was brought from [facility] for reported rectal bleeding. Patient is not alert or oriented and is not able to provide any notable history. Fecal occult blood test was negative. Per patient, he denies any current complaints, including bleeding, chest pain, shortness of breath, nausea, vomiting, diarrhea, constipation. Patient was seen during dialysis - took of 1.5L of fluid. Patient is on aspirin 325. No NSAID use. Patient's daughter Piedad and patient's brother Valentin were both attempted to be reached for further history without success. On recent CT Chest/Abdomen/Pelvis, it was found that patient had an applecore lesion in what appears to be the ascending colon on the right. He recently was admitted in July of 2018 and found to have eosinophilia. Workup for lymphoproliferative disorders was performed, including Flow cytometry , FISH analysis, and cytology. Results were negative for T or B cell lymphoproliferative disorders and negative for genetic aberrations including BCR -ABL. Allergies: none Surgeries: Coronary artery bypass, L AV procedure for dialysis Family History: unclear at present time Smoking: denies Alcohol: denies Prior Colonoscopy: per notes, may have had one 1-2 years ago, but very unclear REVIEW OF SYSTEMS: CONSTITUTIONAL: Absent: fever, chills, diaphoresis, generalized weakness, malaise, loss of appetite, weight change HEENT: Absent: rhinorrhea, nasal congestion, throat pain, throat swelling, difficulty swallowing, mouth swelling, ear pain, eye pain, visual changes CARDIOVASCULAR: Absent: chest pain, syncope, palpitations, irregular heart rate, lightheadedness , peripheral edema RESPIRATORY: Absent: cough, shortness of breath, dyspnea with exertion, orthopnea, wheezing, stridor, hemoptysis GASTROINTESTINAL: Absent: abdominal pain, abdominal distension, nausea, vomiting, diarrhea, constipation, melena, hematochezia GENITOURINARY: Absent: dysuria, frequency, urgency, hesitancy, hematuria, flank pain, genital pain MUSCULOSKELETAL: Absent: myalgia, arthralgia, joint swelling, back pain, neck pain SKIN: Absent: rash, itching, pallor HEMATOLOGIC/IMMUNOLOGIC: Absent: easy bleeding, easy bruising, lymphadenopathy, frequent infections ENDOCRINE: Absent: unexplained weight gain, unexplained weight loss, heat intolerance, cold intolerance NEUROLOGIC: Absent: headache, focal weakness or paresthesias, dizziness, unsteady gait, seizure, mental status changes, bladder or bowel incontinence PSYCHIATRIC: Absent: anxiety, depression, suicidal or homicidal ideation, hallucinations. PHYSICAL EXAMINATION Vital Signs - 24 hr 07/17/19 07/17/19 07/17/19 14:35 18:30 21:00 Temperature 97.0 F L 97.8 F Pulse Rate 59 L 58 L Respiratory 20 22 H Rate Blood Pressure 132/62 121/59 L O2 Sat by Pulse 100 Oximetry (%) 07/17/19 07/18/19 07/18/19 22:00 04:00 09:08 Temperature 97.8 F 97.7 F 97.8 F Pulse Rate 60 60 61 Respiratory 22 H 20 22 H Rate Blood Pressure 143/66 152/70 136/63 O2 Sat by Pulse Oximetry (%) 07/18/19 07/18/19 07/18/19 09:25 09:30 10:00 Temperature Pulse Rate 58 L 58 L 60 Respiratory 18 18 18 Rate Blood Pressure 174/70 H 151/68 147/65 O2 Sat by Pulse Oximetry (%) 07/18/19 07/18/19 07/18/19 10:30 11:00 11:30 Temperature Pulse Rate 64 66 65 Respiratory 18 18 18 Rate Blood Pressure 161/73 173/71 H 181/72 H O2 Sat by Pulse Oximetry (%) 07/18/19 12:00 Temperature Pulse Rate 66 Respiratory 18 Rate Blood Pressure 177/79 H O2 Sat by Pulse Oximetry (%) GENERAL: A&Ox1 (only to person), no acute distress EYES: PERRLA, conjunctival injection noted, bilateral pigmented/melanotic pterygia noted, worse on left ENT: Dry mucus membranes NECK: No JVD, no lymphadenopathy palpated CHEST: nevoid skin discoloration noted on R superior chest wall with what appears to be either a small keloid scar or possibly an accessory nipple on R chest wall, median sternotomy scar noted - well healed BREAST: no abnormal breast lesions noted on exam LUNGS: CTA, no wheezes HEART: RRR, systolic murmur appreciated on exam ABDOMEN: cachectic appearing, soft, nontender, BS present, several laparoscopy scars noted on abdomen, well healed GENITOURINARY: penis uncircumcised without obvious lesions or discharge, testicular exam normal without masses EXTREMITIES: 2+ pulses, no edema. NEUROLOGICAL: Cranial nerves II-XII intact. No focal deficits noted on exam. Laboratory Results - last 24 hr 07/17/19 07/17/19 07/18/19 07:21 22:18 06:16 WBC RBC Hgb Hct MCV MCH MCHC RDW Plt Count MPV Sodium Potassium Chloride Carbon Dioxide Anion Gap BUN Creatinine Est GFR (CKD-EPI)AfAm Est GFR (CKD-EPI)NonAf POC Glucometer 118 65 Random Glucose Hemoglobin A1c % 5.6 Calcium 07/18/19 07/18/19 09:30 09:37 WBC 3.0 L RBC 4.16 Hgb 13.0 Hct 39.2 MCV 94.1 MCH 31.2 MCHC 33.1 RDW 16.4 H Plt Count 97 L MPV 10.1 Sodium 128 L Potassium 5.2 H Chloride 92 L Carbon Dioxide 25 Anion Gap 11 BUN 67.0 H Creatinine 5.6 H Est GFR (CKD-EPI)AfAm 11.60 Est GFR (CKD-EPI)NonAf 10.00 POC Glucometer Random Glucose 123 H Hemoglobin A1c % Calcium 9.1 Active Medications Generic Name Dose Route Start Last Admin Trade Name Freq PRN Reason Stop Dose Admin Amlodipine Besylate 10 mg 07/17/19 10:00 07/17/19 12:09 Norvasc - PO 10 mg DAILY BRAD Administration Carvedilol 12.5 mg 07/16/19 22:00 07/17/19 22:20 Coreg - PO 12.5 mg BID BRAD Administration Clonidine HCl 0.2 mg 07/16/19 19:00 07/16/19 20:15 Catapres Tts Patch - TD 0.2 mg MCMULLEN BRAD Administration Ergocalciferol 50,000 unit 07/16/19 19:00 07/16/19 20:15 Drisdol - PO 50,000 unit MCMULLEN BRAD Administration Folic Acid 1 mg 07/17/19 10:00 07/17/19 12:09 Folic Acid - PO 1 mg DAILY BRAD Administration Hydralazine HCl 25 mg 07/16/19 22:00 07/18/19 06:19 Apresoline - PO 25 mg TID BRAD Administration Sodium Chloride 250 mls @ 3,000 mls/hr 07/17/19 12:48 Normal Saline - IV 07/18/19 12:48 PRN PRN Hypotension during Dialysis Insulin Aspart 1 vial 07/16/19 22:00 07/17/19 22:20 Novolog Vial Sliding Scale - SQ Not Given HS [facility] Protocol Insulin Aspart 1 vial 07/18/19 16:30 Novolog Vial Sliding Scale - SQ BIDAC BRAD Protocol ASSESSMENT/PLAN: 64 year old male with a history of end stage renal disease (TTHS), coronary artery disease, CABG, hypertension, diabetes was brought from [facility] for reported rectal bleeding and admitted for workup of this as well as possible malignancy Assessments: #Rectal Bleeding #Apple Core Lesion #Eosinophilia #Pancytopenia #ESRD on Dialysis #Diabetes #Hypertension Plan: #Rectal Bleeding/Apple core Lesion: does not appear to be an acute bleed and patient is not actively having bloody bowel movements -would hold aspirin in setting of possible bleeding and likely colonoscopy -GI on board, will need to discuss with family the need for colonoscopy -transfuse to a hgb goal of 7-8 -currently hgb stable and patient is hemodynamically stable -apple core lesion identified on CT on 06/21/19 -unclear family history of colon cancer at this time -will need family meeting to discuss plan going forward #Eosinophilia: eosinophils today were 36.8%, were normal on last exam in late 2018, but they were found to be elevated in the past. Currently asymptomatic eosinophilia, could be on basis of neoplasm vs continued strongyloides infection -current absolute eosinophil count 1288 -does not appear as though patient is taking any medications to contribute to eosinophilia, no penicillins or NSAIDs -had workup done in the past (FLOW/FISH/cytogenetics in 07/2018) finding no T or B cell lymphoproliferative disorders or genetic aberrations -may be worthwhile to obtain peripheral smear -strongyloides IgG, will need to find stool ova/parasites results from that -would repeat CBC in 4-6 weeks to assess for resolution if continues to remain asymptomatic -malignancy workup currently in progress for colon CA due to apple core lesion and rectal bleeding #Pancytopenia: persistently pancytopenic on multiple redraws, has not had thrombocytopenia in the past -CT abd/pelvis did not show splenomegaly in 2018, will assess with an abdomen ultrasound now -no platelet clumping noted -will order peripheral smear -will test B12/folate -on no distinct medications that could cause pancytopenia -may be related to viral infection? -repeat CBC in AM #ESRD: s/p dialysis today with 1.5L fluid removed -dialyze per renal Brian Rogers D.O., PGY-[address] COLE Visit type - Emergency Visit Emergency Visit: No - New Patient This patient is new to me today: Yes Date on this admission: 07/18/19 - Critical Care Critical Care patient: No ATTENDING PHYSICIAN STATEMENT I saw and evaluated the patient. I reviewed the resident's note and discussed the case with the resident. I agree with the resident's findings and plan as documented. SUBJECTIVE: OBJECTIVE: ASSESSMENT AND PLAN:
[2019-07-18] MEDS: CARVEDILOL 12.5 MG TABLET (FP) PO SCH ×2 (13:52→21:41)
[2019-07-18] MEDS: FOLIC ACID 1 MG TABLET (FP) PO SCH (13:52)
[2019-07-18] MEDS: amLODIPine BESYLATE 10 MG TABLET (FP) PO SCH (13:52)
--- NOTE | 2019-07-18 15:34 | PN ---
Progress Note, Physician History of Present Illness: Pt seen and examined at bedside. He is awake and appears comfortable. He tolerated HD. - Current Medication List Current Medications: Active Medications Amlodipine Besylate (Norvasc -) 10 mg PO DAILY [facility] Last Admin: 07/18/19 13:52 Dose: 10 mg Carvedilol (Coreg -) 12.5 mg PO BID [facility] Last Admin: 07/18/19 13:52 Dose: 12.5 mg Clonidine HCl (Catapres Tts Patch -) 0.2 mg TD MCMULLEN [facility] Last Admin: 07/16/19 20:15 Dose: 0.2 mg Ergocalciferol (Drisdol -) 50,000 unit PO MCMULLEN [facility] Last Admin: 07/16/19 20:15 Dose: 50,000 unit Folic Acid (Folic Acid -) 1 mg PO DAILY [facility] Last Admin: 07/18/19 13:52 Dose: 1 mg Hydralazine HCl (Apresoline -) 25 mg PO TID [facility] Last Admin: 07/18/19 13:52 Dose: 25 mg Insulin Aspart (Novolog Vial Sliding Scale -) 1 vial SQ HS [facility]; Protocol Last Admin: 07/17/19 22:20 Dose: Not Given Insulin Aspart (Novolog Vial Sliding Scale -) 1 vial SQ BIDAC [facility]; Protocol - Objective Vital Signs: Vital Signs Temperature 97.8 F 07/18/19 09:08 Pulse Rate 61 07/18/19 13:53 Respiratory Rate 18 07/18/19 13:53 Blood Pressure 159/75 07/18/19 13:53 O2 Sat by Pulse Oximetry (%) 100 07/17/19 21:00 Constitutional: Yes: Calm Eyes: Yes: Conjunctiva Clear HENT: Yes: Atraumatic Neck: Yes: Supple Cardiovascular: Yes: S1, S2 Respiratory: Yes: CTA Bilaterally Gastrointestinal: Yes: Soft Genitourinary: Yes: Incontinence Musculoskeletal: Yes: WNL Edema: No Integumentary: Yes: WNL Neurological: Yes: Confusion Labs: CBC, BMP 07/18/19 09:30 07/18/19 09:37 INR, PTT INR 0.93 (0.83-1.09) 07/16/19 15:54 Problem List - Problems (1) ESRD (end stage renal disease) Code(s): N18.6 - END STAGE RENAL DISEASE Assessment/Plan Current Medications Generic Name Dose Route Start Last Admin Trade Name Disha PRN Reason Stop Dose Admin Amlodipine Besylate 10 mg 07/17/19 10:00 07/18/19 13:52 Norvasc - PO 10 mg DAILY [facility] Administration Carvedilol 12.5 mg 07/16/19 22:00 07/18/19 13:52 Coreg - PO 12.5 mg BID [facility] Administration Clonidine HCl 0.2 mg 07/16/19 19:00 07/16/19 20:15 Catapres Tts Patch - TD 0.2 mg MCMULLEN [facility] Administration Ergocalciferol 50,000 unit 07/16/19 19:00 07/16/19 20:15 Drisdol - PO 50,000 unit [facility]CMULLEN [facility] Administration Folic Acid 1 mg 07/17/19 10:00 07/18/19 13:52 Folic Acid - PO 1 mg DAILY [facility] Administration Hydralazine HCl 25 mg 07/16/19 22:00 07/18/19 13:52 Apresoline - PO 25 mg TID [facility] Administration Insulin Aspart 1 vial 07/16/19 22:00 07/17/19 22:20 Novolog Vial Sliding Scale - SQ Not Given HS [facility] Protocol Insulin Aspart 1 vial 07/18/19 16:30 Novolog Vial Sliding Scale - SQ BIDAC [facility] Protocol Impression 1. ESRD 2. GI bleed 3. dementia 4. dysphagia 5. anemia 6. CAD 7. hx CABG 8. DM 9. HLD Plan - pt tolerated HD today - renal diet - GI workup in progress - pt remains confused but pleasant - monitor hg Dr Siu
--- NOTE | 2019-07-18 15:48 | PN ---
Progress Note (short form) - Note Progress Note: Consent for procedure is the main issue. The patient is confused, does not have insight into his medical problems and there is no viable consent for colonoscopy as of yet. Unsuccessful attempts made by staff to contact his known family. Will need consent for procedure and anesthesia prior to proceeding with colonoscopy. Consider getting risk management involved regarding this matter Recall GI when consent issues are clarified
[2019-07-18] MEDS: INSULIN SLIDING SCALE (NOVOLOG) 1 VIAL SQ SCH ×2 (17:32→21:51)
[2019-07-19] MEDS: hydrALAZINE HCL 25 MG TABLET (FP) PO SCH ×3 (06:22→21:08)
[2019-07-19] MEDS: INSULIN SLIDING SCALE (NOVOLOG) 1 VIAL SQ SCH ×3 (06:26→21:15)
[2019-07-19 07:58] LABS: BASO % 1.3 % (0-2.0); EOS % 28.6 % (0-4.5); HEMATOCRIT 38.1 % (35.4-49); HEMOGLOBIN 12.5 GM/dL (11.7-16.9); LYMPH % 26.4 % (8-40); MCH 31.2 pg (25.7-33.7); MCHC 32.9 g/dl (32.0-35.9); MEAN CELL VOLUME 94.7 fl (80-96); MEAN PLT VOLUME 9.3 fl (7.5-11.1); MONO % 11.8 % (3.8-10.2); NEUT % 31.9 % (42.8-82.8); PLATELET COUNT 93 K/MM3 (134-434); RBC 4.02 M/mm3 (4.00-5.60); RDW 15.9 % (11.9-15.9); WHITE BLOOD COUNT 3.1 K/mm3 (4.0-10.0)
[2019-07-19 10:14] LABS: ANISOCYTOSIS 0; MACROCYTOSIS 0; PLATELET ESTIMATE DECREASED
[2019-07-19] MEDS: CARVEDILOL 12.5 MG TABLET (FP) PO SCH ×2 (10:58→21:08)
[2019-07-19] MEDS: amLODIPine BESYLATE 10 MG TABLET (FP) PO SCH (10:58)
[2019-07-19] MEDS: FOLIC ACID 1 MG TABLET (FP) PO SCH (10:58)
--- NOTE | 2019-07-19 11:14 | PN ---
Progress Note (short form) - Note Progress Note: Events noted admitted for abnormal CT abd- anemia, weight loss pt examined , no complaints normal BM confused at baseline Alert and oriented to name and place He knows his children names Vital Signs - 24 hr 07/18/19 07/18/19 07/18/19 11:30 12:00 12:30 Temperature Pulse Rate 65 66 65 Respiratory 18 18 18 Rate Blood Pressure 181/72 H 177/79 H 174/79 H O2 Sat by Pulse Oximetry (%) 07/18/19 07/18/19 07/18/19 13:00 13:21 13:53 Temperature Pulse Rate 65 68 61 Respiratory 18 18 18 Rate Blood Pressure 181/83 H 174/87 H 159/75 O2 Sat by Pulse Oximetry (%) 07/18/19 07/18/19 07/18/19 18:25 21:00 21:40 Temperature 98.3 F 98.5 F Pulse Rate 66 68 Respiratory 20 18 Rate Blood Pressure 152/66 159/68 O2 Sat by Pulse 98 Oximetry (%) 07/19/19 07/19/19 07/19/19 02:00 06:00 10:00 Temperature 98.1 F 98.0 F 98.5 F Pulse Rate 64 70 63 Respiratory 18 18 19 Rate Blood Pressure 154/68 151/65 159/57 L O2 Sat by Pulse Oximetry (%) Current Medications Generic Name Dose Route Start Last Admin Trade Name Disha PRN Reason Stop Dose Admin Amlodipine Besylate 10 mg 07/17/19 10:00 07/19/19 10:58 Norvasc - PO 10 mg DAILY [facility] Administration Carvedilol 12.5 mg 07/16/19 22:00 07/19/19 10:58 Coreg - PO 12.5 mg BID [facility] Administration Clonidine HCl 0.2 mg 07/16/19 19:00 07/16/19 20:15 Catapres Tts Patch - TD 0.2 mg [facility]CMULLEN [facility] Administration Ergocalciferol 50,000 unit 07/16/19 19:00 07/16/19 20:15 Drisdol - PO 50,000 unit [facility]EN [facility] Administration Folic Acid 1 mg 07/17/19 10:00 07/19/19 10:58 Folic Acid - PO 1 mg DAILY [facility] Administration Hydralazine HCl 25 mg 07/16/19 22:00 07/19/19 06:22 Apresoline - PO 25 mg TID [facility] Administration Insulin Aspart 1 vial 07/16/19 22:00 07/18/19 21:51 Novolog Vial Sliding Scale - SQ Not Given HS [facility] Protocol Insulin Aspart 1 vial 07/18/19 16:30 07/19/19 06:26 Novolog Vial Sliding Scale - SQ Not Given BIDAC [facility] Protocol Laboratory Results - last 24 hr 07/18/19 07/18/19 07/18/19 09:30 09:30 17:03 WBC RBC Hgb Hct MCV MCH MCHC RDW Plt Count MPV Absolute Neuts (auto) Neutrophils % Neutrophils % (Manual) Band Neutrophils % Lymphocytes % Lymphocytes % (Manual) Monocytes % Monocytes % (Manual) Eosinophils % Eosinophils % (Manual) Basophils % Basophils % (Manual) Myelocytes % (Man) Promyelocytes % (Man) Blast Cells % (Manual) Nucleated RBC % Metamyelocytes Hypochromia Platelet Estimate Polychromasia Poikilocytosis Anisocytosis Microcytosis Macrocytosis POC Glucometer 139 Vitamin B12 Serum Folate Hep Bs Antigen Negative Hep C Ab Diagnostic <0.1 07/18/19 07/19/19 07/19/19 21:48 06:10 06:10 WBC 3.1 L RBC 4.02 Hgb 12.5 Hct 38.1 MCV 94.7 MCH 31.2 MCHC 32.9 RDW 15.9 Plt Count 93 L MPV 9.3 Absolute Neuts (auto) 1.0 L Neutrophils % 31.9 L Neutrophils % (Manual) 33.3 L Band Neutrophils % 0.0 Lymphocytes % 26.4 D Lymphocytes % (Manual) 24.5 D Monocytes % 11.8 H Monocytes % (Manual) 11 H Eosinophils % 28.6 H* Eosinophils % (Manual) 26.5 H Basophils % 1.3 Basophils % (Manual) 1.9 Myelocytes % (Man) 1 D Promyelocytes % (Man) 0 Blast Cells % (Manual) 0 Nucleated RBC % 0 Metamyelocytes 2 D Hypochromia 0 Platelet Estimate Decreased Polychromasia 0 Poikilocytosis 0 Anisocytosis 0 Microcytosis 0 Macrocytosis 0 POC Glucometer 122 Vitamin B12 809 Serum Folate 92 H Hep Bs Antigen Hep C Ab Diagnostic 07/19/19 06:24 WBC RBC Hgb Hct MCV MCH MCHC RDW Plt Count MPV Absolute Neuts (auto) Neutrophils % Neutrophils % (Manual) Band Neutrophils % Lymphocytes % Lymphocytes % (Manual) Monocytes % Monocytes % (Manual) Eosinophils % Eosinophils % (Manual) Basophils % Basophils % (Manual) Myelocytes % (Man) Promyelocytes % (Man) Blast Cells % (Manual) Nucleated RBC % Metamyelocytes Hypochromia Platelet Estimate Polychromasia Poikilocytosis Anisocytosis Microcytosis Macrocytosis POC Glucometer 62 Vitamin B12 Serum Folate Hep Bs Antigen Hep C Ab Diagnostic Lungs decreased Abd- soft, NT no edema PLAN apple core lesion on CT abd weight loss ESRD on HD -- called daughter Piedad today- [phone] -- GI eval noted -- contacted GI -- explained to daughter about CT abd findings-- she is agreeing to colonoscopy -- continue with other meds -- HD per renal Problem List - Problems (1) Colonic thickening Code(s): K63.9 - DISEASE OF INTESTINE, UNSPECIFIED (2) CAD (coronary artery disease) Code(s): I25.10 - ATHSCL HEART DISEASE OF [place] CORONARY ARTERY W/O ANG PCTRS Qualifiers: Coronary Disease-Associated Artery/Lesion type: [place] artery [place] vs. transplanted heart: [place] heart Associated angina: without angina Qualified Code(s): I25.10 - Atherosclerotic heart disease of [place] coronary artery without angina pectoris (3) ESRD (end stage renal disease) Code(s): N18.6 - END STAGE RENAL DISEASE (4) HTN (hypertension) Code(s): I10 - ESSENTIAL (PRIMARY) HYPERTENSION (5) Hypertensive cardiomyopathy Code(s): I11.9 - HYPERTENSIVE HEART DISEASE WITHOUT HEART FAILURE; I43 - CARDIOMYOPATHY IN DISEASES CLASSIFIED ELSEWHERE Qualifiers: Heart failure presence: with heart failure Qualified Code(s): I11.0 - Hypertensive heart disease with heart failure; I43 - Cardiomyopathy in diseases classified elsewhere (6) Weight loss Code(s): R63.4 - ABNORMAL WEIGHT LOSS
--- NOTE | 2019-07-19 13:25 | PN ---
Progress Note, Physician History of Present Illness: Pt seen and examined at bedside. He appears comfortable. He remains confused. - Current Medication List Current Medications: Active Medications Amlodipine Besylate (Norvasc -) 10 mg PO DAILY [facility] Last Admin: 07/19/19 10:58 Dose: 10 mg Carvedilol (Coreg -) 12.5 mg PO BID [facility] Last Admin: 07/19/19 10:58 Dose: 12.5 mg Clonidine HCl (Catapres Tts Patch -) 0.2 mg TD MCMULLEN [facility] Last Admin: 07/16/19 20:15 Dose: 0.2 mg Ergocalciferol (Drisdol -) 50,000 unit PO MCMULLEN [facility] Last Admin: 07/16/19 20:15 Dose: 50,000 unit Folic Acid (Folic Acid -) 1 mg PO DAILY [facility] Last Admin: 07/19/19 10:58 Dose: 1 mg Hydralazine HCl (Apresoline -) 25 mg PO TID [facility] Last Admin: 07/19/19 06:22 Dose: 25 mg Insulin Aspart (Novolog Vial Sliding Scale -) 1 vial SQ HS [facility]; Protocol Last Admin: 07/18/19 21:51 Dose: Not Given Insulin Aspart (Novolog Vial Sliding Scale -) 1 vial SQ BIDAC [facility]; Protocol Last Admin: 07/19/19 06:26 Dose: Not Given - Objective Vital Signs: Vital Signs Temperature 98.5 F 07/19/19 10:00 Pulse Rate 63 07/19/19 10:00 Respiratory Rate 19 07/19/19 10:00 Blood Pressure 159/57 L 07/19/19 10:00 O2 Sat by Pulse Oximetry (%) 98 07/18/19 21:00 Constitutional: Yes: Calm Eyes: Yes: Conjunctiva Clear HENT: Yes: Atraumatic Cardiovascular: Yes: S1, S2 Respiratory: Yes: CTA Bilaterally Gastrointestinal: Yes: Soft Genitourinary: Yes: Incontinence Musculoskeletal: Yes: WNL Edema: No Neurological: Yes: Confusion Labs: CBC, BMP 07/19/19 06:10 07/18/19 09:37 INR, PTT INR 0.93 (0.83-1.09) 07/16/19 15:54 Problem List - Problems (1) ESRD (end stage renal disease) Code(s): N18.6 - END STAGE RENAL DISEASE Assessment/Plan Current Medications Generic Name Dose Route Start Last Admin Trade Name Disha PRN Reason Stop Dose Admin Amlodipine Besylate 10 mg 07/17/19 10:00 07/19/19 10:58 Norvasc - PO 10 mg DAILY [facility] Administration Carvedilol 12.5 mg 07/16/19 22:00 07/19/19 10:58 Coreg - PO 12.5 mg BID [facility] Administration Clonidine HCl 0.2 mg 07/16/19 19:00 07/16/19 20:15 Catapres Tts Patch - TD 0.2 mg [facility]ULLEN [facility] Administration Ergocalciferol 50,000 unit 07/16/19 19:00 07/16/19 20:15 Drisdol - PO 50,000 unit [facility]CMULLEN [facility] Administration Folic Acid 1 mg 07/17/19 10:00 07/19/19 10:58 Folic Acid - PO 1 mg DAILY [facility] Administration Hydralazine HCl 25 mg 07/16/19 22:00 07/19/19 06:22 Apresoline - PO 25 mg TID [facility] Administration Insulin Aspart 1 vial 07/16/19 22:00 07/18/19 21:51 Novolog Vial Sliding Scale - SQ Not Given HS [facility] Protocol Insulin Aspart 1 vial 07/18/19 16:30 07/19/19 06:26 Novolog Vial Sliding Scale - SQ Not Given BIDAC [facility] Protocol Impression 1. ESRD 2. GI bleed 3. dementia 4. dysphagia 5. anemia 6. CAD 7. hx CABG 8. DM 9. HLD Plan - HD tomorrow - monitor hg - GI workup - renal diet - pt remains confused but pleasant - 2 k bath f180 3:30, abf 450 Dr Siu
--- NOTE | 2019-07-19 14:49 | PN.GI ---
GI Progress Note Subjective: Pt seen/examined, alert though still confused. Denies abdominal pain, n/v. Tolerated breakfast this am. No overt bleeding. Informed by primary team that pts daughter will consent for colonoscopy. - Objective Vital Signs: Vital Signs Temperature 98.5 F 07/19/19 10:00 Pulse Rate 63 07/19/19 10:00 Respiratory Rate 07/19/19 10:00 Blood Pressure 159/57 L 07/19/19 10:00 O2 Sat by Pulse Oximetry (%) 98 07/19/19 09:00 Constitutional: Well Nourished, No Distress, Calm Cardiovascular: Yes: WNL, Regular Rate and Rhythm Respiratory: Yes: WNL, Regular ...Palpate: Yes: Other (Abd soft, nt, nd) Labs: CBC, BMP 07/19/19 06:10 07/18/19 09:37 INR, PTT INR 0.93 (0.83-1.09) 07/16/19 15:54 Problem List - Problems (1) Colonic thickening Assessment/Plan: 64yo male from [facility] h/o coronary artery disease/CABG on ASA 325mg (now held), hypertension, ESRD on HD, DM, dementia, GERD presenting with reported rectal bleeding and recent CT abd/pelvis revealing an apple core lesion /thickening at cecum. No overt bleeding. Hb stable. Pt confused, not able to verbalize understanding of the procedure. Spoke with pts daughter, Piedad White, by phone and discussed risks and benefits of colonoscopy in detail using mosquito sprayer. Discussed potential risks including though not limited to bleeding, infection, perforation and side effects of medications/ anesthesia. She verbalized understanding and consent obtained. Unable to contact nursing sugar house supervisor at [facility] to clarify last asa, presumed day prior to admission. -Plan for colonoscopy tentatively on Wednesday -Monitor and correct electrolytes as needed -Continue to hold antiplts if no contraindication -Clear liquid diet tomorrow -Start golytely 4L at 6pm on (07/20) -Dulcolax 20mg at 6pm on -Please notify GI if any questions or change in clinical status in the interim Discussed with medicine team Code(s): K63.9 - DISEASE OF INTESTINE, UNSPECIFIED
--- NOTE | 2019-07-19 18:34 | CON.ID ---
Consult - Past Medical History Cardio/Vascular: Yes: CAD (s/p CABG), HTN, Hyperlipdemia Gastrointestinal: Yes: Constipation Renal/: Yes: Renal Failure, Hemodialysis - Past Surgical History Past Surgical History: Yes: CABG - Alcohol/Substance Use Hx Alcohol Use: No - Smoking History Smoking history: Never smoked Have you smoked in the past 12 months: No Aproximately how many cigarettes per day: 0 - Social History Usual Living Arrangement: Senior Care ADL: Support Services Home Medications - Allergies Allergies/Adverse Reactions: Allergies Allergy/AdvReac Type Severity Reaction Status Date / Time No Known Allergies Allergy Verified 09/23/18 06:37 - Home Medications Home Medications: Ambulatory Orders Acetaminophen [Tylenol] 650 mg PO Q6H PRN 07/19/18 Amlodipine Besylate [Norvasc -] 10 mg PO DAILY 07/19/18 Atorvastatin Ca [Lipitor] 10 mg PO HS 07/19/18 Calcium Acetate [Phoslo -] 667 mg PO TIDCM 07/19/18 Clonidine Patch [Catapres Tts Patch -] 0.2 mg TD MCMULLEN 07/19/18 Ergocalciferol [Vitamin D2] 50,000 unit PO [facility]CMULLEN 07/19/18 Metoprolol Tartrate [Lopressor -] 50 mg PO BID 07/19/18 hydrALAZINE HCL [Apresoline -] 50 mg PO TID 07/19/18 Gel Dressing [Dermasyn] 85 gm TP BID 09/23/18 Insulin Aspart [Novolog Flexpen] 100 unit SQ ASDIR 09/23/18 Heparin - 5,000 unit SQ BID vial 09/26/18 Vancomycin Oral Solution 125 mg PO Q6HPO #48 ml MDD 4 09/26/18 Aspirin [Aspirin EC] 81 mg PO DAILY 07/17/19 Carvedilol [Coreg -] 25 mg PO BID 07/17/19 Folic Acid 1 mg PO DAILY 07/17/19 Lactobacillus Acidophilus [Bacid -] 1 cap PO DAILY 07/17/19 Lisinopril 10 mg PO DAILY 07/17/19 Mirtazapine 30 mg PO HS 07/17/19 Nifedipine [Procardia Xl] 30 mg PO DAILY 07/17/19 Nifedipine [Procardia Xl] 30 mg PO DAILY 07/17/19 Sennosides [Senokot] 8.6 mg PO DAILY 07/17/19 Vitamin B Comp W-C [Nephro-Alejandro -] 0.8 mg PO DAILY 07/17/19 Vitamin B Comp W-C [Nephro-Alejandro -] 0.8 tablet PO DAILY 07/17/19 Physical Exam Vital Signs: Vital Signs Temperature 98.7 F 07/19/19 14:31 Pulse Rate 64 07/19/19 14:31 Respiratory Rate 18 07/19/19 14:31 Blood Pressure 151/68 07/19/19 14:31 O2 Sat by Pulse Oximetry (%) 98 07/19/19 09:00 Labs: CBC, BMP 07/19/19 06:10 07/18/19 09:37
--- NOTE | 2019-07-19 18:56 | PN ---
Teaching Attending Note Name of Resident: Brian Rogers ATTENDING PHYSICIAN STATEMENT I saw and evaluated the patient. I reviewed the resident's note and discussed the case with the resident. I agree with the resident's findings and plan as documented. SUBJECTIVE: Patient seen and examined Seems to answer simple questions in Thai Denies any specific complaints Seems not to have insight into the nature of his problems Last Vital Signs Temp Pulse Resp BP Pulse Ox 98.7 F 64 18 151/68 98 07/19/19 14:31 07/19/19 14:31 07/19/19 14:31 07/19/19 14:31 07/19/19 09:00 HEENT: ESSENCE, EOM Intact Oropharynx: No thrush, No mucositis Cor: RSR, No murmurs, No gallops Lungs:diminished breath sounds bilaterally Abd: Soft, Normal bowel sounds, No organomegaly Ext:No significant edema Skin: No rashes, Integument intact CBC, BMP 07/19/19 06:10 07/18/19 09:37 Abnormal Lab Results 07/19/19 07/19/19 06:10 06:10 WBC 3.1 L Plt Count 93 L Absolute Neuts (auto) 1.0 L Neutrophils % 31.9 L Neutrophils % (Manual) 33.3 L Monocytes % 11.8 H Monocytes % (Manual) 11 H Eosinophils % 28.6 H* Eosinophils % (Manual) 26.5 H Serum Folate 92 H Current Medications Generic Name Dose Route Start Last Admin Trade Name Freq PRN Reason Stop Dose Admin Amlodipine Besylate 10 mg 07/17/19 10:00 07/19/19 10:58 Norvasc - PO 10 mg DAILY [facility] Administration Bisacodyl 20 mg 07/20/19 18:00 Dulcolax - PO 07/20/19 18:01 ONCE ONE Carvedilol 12.5 mg 07/16/19 22:00 07/19/19 10:58 Coreg - PO 12.5 mg BID [facility] Administration Clonidine HCl 0.2 mg 07/16/19 19:00 07/16/19 20:15 Catapres Tts Patch - TD 0.2 mg [facility]ULLEN [facility] Administration Ergocalciferol 50,000 unit 07/16/19 19:00 07/16/19 20:15 Drisdol - PO 50,000 unit [facility]ULLEN [facility] Administration Folic Acid 1 mg 07/17/19 10:00 07/19/19 10:58 Folic Acid - PO 1 mg DAILY [facility] Administration Hydralazine HCl 25 mg 07/16/19 22:00 07/19/19 15:08 Apresoline - PO 25 mg TID [facility] Administration Sodium Chloride 250 mls @ 3,000 mls/hr 07/19/19 13:25 Normal Saline - IV 07/20/19 13:25 PRN PRN Hypotension during Dialysis Insulin Aspart 1 vial 07/16/19 22:00 07/18/19 21:51 Novolog Vial Sliding Scale - SQ Not Given HS [facility] Protocol Insulin Aspart 1 vial 07/18/19 16:30 07/19/19 16:31 Novolog Vial Sliding Scale - SQ 2 units BIDAC [facility] Administration Protocol Polyethylene Glycol/Electrolytes 4,000 ml 07/20/19 18:00 Golytely Solution - PO 07/20/19 18:01 ONCE ONE Impression: Ascending colon lesion - for colonoscopy ESRD/HD DM Eosinophilia present intermittently for >6 months without MPN dignosed previously HBP + IgG strongyloides Plan : GI assessment Rx for strongyloides and re-assess eosinophil count OBJECTIVE: ASSESSMENT AND PLAN:
[2019-07-20] MEDS: hydrALAZINE HCL 25 MG TABLET (FP) PO SCH ×3 (06:31→23:52)
[2019-07-20] MEDS: INSULIN SLIDING SCALE (NOVOLOG) 1 VIAL SQ SCH ×3 (06:33→23:56)
[2019-07-20 08:07] LABS: HEMATOCRIT 37.8 % (35.4-49); HEMOGLOBIN 12.5 GM/dL (11.7-16.9); MCH 31.2 pg (25.7-33.7); MCHC 33.2 g/dl (32.0-35.9); MEAN CELL VOLUME 94.2 fl (80-96); MEAN PLT VOLUME 9.5 fl (7.5-11.1); PLATELET COUNT 97 K/MM3 (134-434); RBC 4.01 M/mm3 (4.00-5.60); RDW 15.9 % (11.9-15.9)
[2019-07-20 08:36] LABS: BLOOD UREA NITROGEN 45.6 mg/dL (7-18); CALCIUM 8.9 mg/dL (8.5-10.1); CREATININE 4.8 mg/dL (0.55-1.3); POTASSIUM 3.7 mmol/L (3.5-5.1)
--- NOTE | 2019-07-20 10:00 | PN ---
Progress Note, Physician History of Present Illness: patient stable no new issues - Current Medication List Current Medications: Active Medications Amlodipine Besylate (Norvasc -) 10 mg PO DAILY [facility] Last Admin: 07/19/19 10:58 Dose: 10 mg Bisacodyl (Dulcolax -) 20 mg PO ONCE ONE Stop: 07/20/19 18:01 Carvedilol (Coreg -) 12.5 mg PO BID [facility] Last Admin: 07/19/19 21:08 Dose: 12.5 mg Clonidine HCl (Catapres Tts Patch -) 0.2 mg TD MCMULLEN [facility] Last Admin: 07/16/19 20:15 Dose: 0.2 mg Ergocalciferol (Drisdol -) 50,000 unit PO [facility]CMULLEN [facility] Last Admin: 07/16/19 20:15 Dose: 50,000 unit Folic Acid (Folic Acid -) 1 mg PO DAILY [facility] Last Admin: 07/19/19 10:58 Dose: 1 mg Hydralazine HCl (Apresoline -) 25 mg PO TID [facility] Last Admin: 07/20/19 06:31 Dose: Not Given Sodium Chloride (Normal Saline -) 250 mls @ 3,000 mls/hr IV PRN PRN PRN Reason: Hypotension during Dialysis Stop: 07/20/19 13:25 Insulin Aspart (Novolog Vial Sliding Scale -) 1 vial SQ HS [facility]; Protocol Last Admin: 07/19/19 21:15 Dose: 4 units Insulin Aspart (Novolog Vial Sliding Scale -) 1 vial SQ BIDAC [facility]; Protocol Last Admin: 07/20/19 06:33 Dose: Not Given Polyethylene Glycol/Electrolytes (Golytely Solution -) 4,000 ml PO ONCE ONE Stop: 07/20/19 18:01 - Objective Vital Signs: Vital Signs Temperature 98.1 F 07/20/19 06:29 Pulse Rate 58 L 07/20/19 06:29 Respiratory Rate 18 07/20/19 06:29 Blood Pressure 143/61 07/20/19 06:29 O2 Sat by Pulse Oximetry (%) 98 07/19/19 21:00 Constitutional: Yes: No Distress, Calm Cardiovascular: Yes: S1, S2 Respiratory: Yes: Regular, CTA Bilaterally Gastrointestinal: Yes: Normal Bowel Sounds, Soft Musculoskeletal: Yes: WNL Extremities: Yes: Other Neurological: Yes: Alert, Oriented Psychiatric: Yes: Alert, Oriented Labs: CBC, BMP 08/29/19 07:20 07/20/19 07:20 INR, PTT INR 0.93 (0.83-1.09) 07/16/19 15:54 Assessment/Plan 1. ESRD 2. GI bleed 3. dementia 4. dysphagia 5. anemia 6. CAD 7. hx CABG 8. DM 9. HLD 10 eosinophilia plan awaiting report will see what the eos are tomorrow might need to treat rest as per the team
--- NOTE | 2019-07-20 10:43 | PN ---
Progress Note (short form) - Note Progress Note: pt in dialysis no complaints confused at baseline Alert and oriented to name and place He knows his children names Vital Signs - 24 hr 07/19/19 07/19/19 07/19/19 14:31 18:00 20:39 Temperature 98.7 F 98.1 F 98.5 F Pulse Rate 64 63 72 Respiratory 18 18 18 Rate Blood Pressure 151/68 138/61 149/63 O2 Sat by Pulse Oximetry (%) 07/19/19 07/20/19 07/20/19 21:00 02:00 06:29 Temperature 98.6 F 98.1 F Pulse Rate 64 58 L Respiratory 18 18 Rate Blood Pressure 145/65 143/61 O2 Sat by Pulse 98 Oximetry (%) 07/20/19 07/20/19 07:15 07:20 Temperature 98.2 F Pulse Rate 60 57 L Respiratory 18 18 Rate Blood Pressure 130/56 L 139/58 L O2 Sat by Pulse Oximetry (%) Current Medications Generic Name Dose Route Start Last Admin Trade Name Disha PRN Reason Stop Dose Admin Amlodipine Besylate 10 mg 07/17/19 10:00 07/19/19 10:58 Norvasc - PO 10 mg DAILY BRAD Administration Bisacodyl 20 mg 07/20/19 18:00 Dulcolax - PO 07/20/19 18:01 ONCE ONE Carvedilol 12.5 mg 07/16/19 22:00 07/19/19 21:08 Coreg - PO 12.5 mg BID BRAD Administration Clonidine HCl 0.2 mg 07/16/19 19:00 07/16/19 20:15 Catapres Tts Patch - TD 0.2 mg MCMULLEN [facility]AD Administration Ergocalciferol 50,000 unit 07/16/19 19:00 07/16/19 20:15 Drisdol - PO 50,000 unit MCMULLEN [facility] Administration Folic Acid 1 mg 07/17/19 10:00 07/19/19 10:58 Folic Acid - PO 1 mg DAILY BRAD Administration Hydralazine HCl 25 mg 07/16/19 22:00 07/20/19 06:31 Apresoline - PO Not Given TID BRAD Sodium Chloride 250 mls @ 3,000 mls/hr 07/19/19 13:25 Normal Saline - IV 07/20/19 13:25 PRN PRN Hypotension during Dialysis Insulin Aspart 1 vial 07/16/19 22:00 07/19/19 21:15 Novolog Vial Sliding Scale - SQ 4 units HS BRAD Administration Protocol Insulin Aspart 1 vial 07/18/19 16:30 07/20/19 06:33 Novolog Vial Sliding Scale - SQ Not Given BIDAC [facility] Protocol Polyethylene Glycol/Electrolytes 4,000 ml 07/20/19 18:00 Golytely Solution - PO 07/20/19 18:01 ONCE ONE Laboratory Results - last 24 hr 07/19/19 07/19/19 07/19/19 12:27 16:27 21:14 WBC RBC Hgb Hct MCV MCH MCHC RDW Plt Count MPV Sodium Potassium Chloride Carbon Dioxide Anion Gap BUN Creatinine Est GFR (CKD-EPI)AfAm Est GFR (CKD-EPI)NonAf POC Glucometer 126 156 257 Random Glucose Calcium 07/20/19 07/20/19 07/20/19 06:32 07:07 07:20 WBC 3.0 L RBC 4.01 Hgb 12.5 Hct 37.8 MCV 94.2 MCH 31.2 MCHC 33.2 RDW 15.9 Plt Count 97 L MPV 9.5 Sodium Potassium Chloride Carbon Dioxide Anion Gap BUN Creatinine Est GFR (CKD-EPI)AfAm Est GFR (CKD-EPI)NonAf POC Glucometer 61 110 Random Glucose Calcium 07/20/19 07:20 WBC RBC Hgb Hct MCV MCH MCHC RDW Plt Count MPV Sodium 136 Potassium 3.7 Chloride 96 L Carbon Dioxide 30 Anion Gap 10 BUN 45.6 H Creatinine 4.8 H Est GFR (CKD-EPI)AfAm 13.97 Est GFR (CKD-EPI)NonAf 12.05 POC Glucometer Random Glucose 107 H Calcium 8.9 [id number] Lungs decreased Abd- soft, NT no edema PLAN apple core lesion on CT abd weight loss eosinophilia pancytopenia ESRD on HD -- tomorrow will have colonoscopy -- check stool studies for parasites -- continue with meds -- check differential today Problem List - Problems (1) Colonic thickening Code(s): K63.9 - DISEASE OF INTESTINE, UNSPECIFIED (2) CAD (coronary artery disease) Code(s): I25.10 - ATHSCL HEART DISEASE OF [place] CORONARY ARTERY W/O ANG PCTRS Qualifiers: Coronary Disease-Associated Artery/Lesion type: [place] artery [place] vs. transplanted heart: [place] heart Associated angina: without angina Qualified Code(s): I25.10 - Atherosclerotic heart disease of [place] coronary artery without angina pectoris (3) ESRD (end stage renal disease) Code(s): N18.6 - END STAGE RENAL DISEASE (4) HTN (hypertension) Code(s): I10 - ESSENTIAL (PRIMARY) HYPERTENSION (5) Hypertensive cardiomyopathy Code(s): I11.9 - HYPERTENSIVE HEART DISEASE WITHOUT HEART FAILURE; I43 - CARDIOMYOPATHY IN DISEASES CLASSIFIED ELSEWHERE Qualifiers: Heart failure presence: with heart failure Qualified Code(s): I11.0 - Hypertensive heart disease with heart failure; I43 - Cardiomyopathy in diseases classified elsewhere (6) Weight loss Code(s): R63.4 - ABNORMAL WEIGHT LOSS
[2019-07-20 11:29] LABS: ANISOCYTOSIS 0; MACROCYTOSIS 0; PLATELET ESTIMATE DECREASED
[2019-07-20] MEDS: FOLIC ACID 1 MG TABLET (FP) PO SCH (12:07)
[2019-07-20] MEDS: CARVEDILOL 12.5 MG TABLET (FP) PO SCH ×2 (12:07→23:52)
[2019-07-20] MEDS: amLODIPine BESYLATE 10 MG TABLET (FP) PO SCH (12:07)
--- NOTE | 2019-07-20 13:55 | PN ---
Progress Note, Physician History of Present Illness: Pt seen and examined at bedside. He is awake and appears comfortable. He tolerated HD today. - Current Medication List Current Medications: Active Medications Amlodipine Besylate (Norvasc -) 10 mg PO DAILY [facility] Last Admin: 07/20/19 12:07 Dose: 10 mg Bisacodyl (Dulcolax -) 20 mg PO ONCE ONE Stop: 07/20/19 18:01 Carvedilol (Coreg -) 12.5 mg PO BID [facility] Last Admin: 07/20/19 12:07 Dose: 12.5 mg Clonidine HCl (Catapres Tts Patch -) 0.2 mg TD MCMULLEN [facility] Last Admin: 07/16/19 20:15 Dose: 0.2 mg Ergocalciferol (Drisdol -) 50,000 unit PO MCMULLEN [facility] Last Admin: 07/16/19 20:15 Dose: 50,000 unit Folic Acid (Folic Acid -) 1 mg PO DAILY [facility] Last Admin: 07/20/19 12:07 Dose: 1 mg Hydralazine HCl (Apresoline -) 25 mg PO TID [facility] Last Admin: 07/20/19 06:31 Dose: Not Given Sodium Chloride (Normal Saline -) 250 mls @ 3,000 mls/hr IV PRN PRN PRN Reason: Hypotension during Dialysis Stop: 07/20/19 13:25 Insulin Aspart (Novolog Vial Sliding Scale -) 1 vial SQ HS [facility]; Protocol Last Admin: 07/19/19 21:15 Dose: 4 units Insulin Aspart (Novolog Vial Sliding Scale -) 1 vial SQ BIDAC [facility]; Protocol Last Admin: 07/20/19 06:33 Dose: Not Given Polyethylene Glycol/Electrolytes (Golytely Solution -) 4,000 ml PO ONCE ONE Stop: 07/20/19 18:01 - Objective Vital Signs: Vital Signs Temperature 98.2 F 07/20/19 07:15 Pulse Rate 66 07/20/19 12:02 Respiratory Rate 17 07/20/19 12:02 Blood Pressure 170/71 07/20/19 12:02 O2 Sat by Pulse Oximetry (%) 98 07/19/19 21:00 Constitutional: Yes: Calm Eyes: Yes: Conjunctiva Clear HENT: Yes: Atraumatic Neck: Yes: Supple Cardiovascular: Yes: S1, S2 Respiratory: Yes: CTA Bilaterally Gastrointestinal: Yes: Soft Genitourinary: Yes: WNL Musculoskeletal: Yes: WNL Edema: No Neurological: Yes: Oriented Psychiatric: Yes: Oriented Labs: CBC, BMP 07/20/19 10:30 07/20/19 07:20 INR, PTT INR 0.93 (0.83-1.09) 07/16/19 15:54 Problem List - Problems (1) ESRD (end stage renal disease) Code(s): N18.6 - END STAGE RENAL DISEASE Assessment/Plan Current Medications Generic Name Dose Route Start Last Admin Trade Name Freq PRN Reason Stop Dose Admin Amlodipine Besylate 10 mg 07/17/19 10:00 07/20/19 12:07 Norvasc - PO 10 mg DAILY BRAD Administration Bisacodyl 20 mg 07/20/19 18:00 Dulcolax - PO 07/20/19 18:01 ONCE ONE Carvedilol 12.5 mg 07/16/19 22:00 07/20/19 12:07 Coreg - PO 12.5 mg BID BRAD Administration Clonidine HCl 0.2 mg 07/16/19 19:00 07/16/19 20:15 Catapres Tts Patch - TD 0.2 mg MCMULLEN BRAD Administration Ergocalciferol 50,000 unit 07/16/19 19:00 07/16/19 20:15 Drisdol - PO 50,000 unit MCMULLEN BR[facility] Administration Folic Acid 1 mg 07/17/19 10:00 07/20/19 12:07 Folic Acid - PO 1 mg DAILY BRAD Administration Hydralazine HCl 25 mg 07/16/19 22:00 07/20/19 06:31 Apresoline - PO Not Given TID BRAD Sodium Chloride 250 mls @ 3,000 mls/hr 07/19/19 13:25 Normal Saline - IV 07/20/19 13:25 PRN PRN Hypotension during Dialysis Insulin Aspart 1 vial 07/16/19 22:00 07/19/19 21:15 Novolog Vial Sliding Scale - SQ 4 units HS BRAD Administration Protocol Insulin Aspart 1 vial 07/18/19 16:30 07/20/19 06:33 Novolog Vial Sliding Scale - SQ Not Given BIDAC [facility] Protocol Polyethylene Glycol/Electrolytes 4,000 ml 07/20/19 18:00 Golytely Solution - PO 07/20/19 18:01 ONCE ONE Impression 1. ESRD 2. GI bleed 3. dementia 4. dysphagia 5. anemia 6. CAD 7. hx CABG 8. DM 9. HLD Plan - pt tolerated HD - GI workup in progress - monitor hg - renal diet - pt remains confused but pleasant - 2 k bath f180 3:30, abf [address] Dr Siu
[2019-07-20] MEDS ORDERED: BISACODYL 5 MG TABLET.DR (FP) PO ONE (18:00)
[2019-07-20] MEDS ORDERED: PEG 3350/NA SULF BICARB CL/KCL 4000 ML SOLN.RECON PO ONE (18:00)
[2019-07-21] MEDS: hydrALAZINE HCL 25 MG TABLET (FP) PO SCH ×3 (06:10→21:29)
[2019-07-21] MEDS: INSULIN SLIDING SCALE (NOVOLOG) 1 VIAL SQ SCH ×3 (06:15→21:29)
[2019-07-21 08:47] LABS: BASO % 0.9 % (0-2.0); EOS % 34.7 % (0-4.5); HEMATOCRIT 40.2 % (35.4-49); HEMOGLOBIN 13.2 GM/dL (11.7-16.9); LYMPH % 26.2 % (8-40); MCHC 32.8 g/dl (32.0-35.9); MEAN CELL VOLUME 94.6 fl (80-96); MEAN PLT VOLUME 9.7 fl (7.5-11.1); MONO % 13.1 % (3.8-10.2); NEUT % 25.1 % (42.8-82.8); PLATELET COUNT 117 K/MM3 (134-434); RBC 4.25 M/mm3 (4.00-5.60); RDW 15.9 % (11.9-15.9); WHITE BLOOD COUNT 3.5 K/mm3 (4.0-10.0)
[2019-07-21] MEDS ORDERED: PEG 3350/NA SULF BICARB CL/KCL 4000 ML SOLN.RECON PO STA (08:55)
[2019-07-21 09:08] LABS: BLOOD UREA NITROGEN 23.5 mg/dL (7-18); CALCIUM 9.1 mg/dL (8.5-10.1); CREATININE 3.3 mg/dL (0.55-1.3); POTASSIUM 3.3 mmol/L (3.5-5.1)
[2019-07-21] MEDS ORDERED: SODIUM CHLORIDE 250 ML IV PRN ×2 (09:24→14:27)
--- NOTE | 2019-07-21 09:46 | PN ---
Progress Note, Physician History of Present Illness: patient stable no new issues plan is for colonoscopy - Current Medication List Current Medications: Active Medications Amlodipine Besylate (Norvasc -) 10 mg PO DAILY [facility] Last Admin: 07/20/19 12:07 Dose: 10 mg Carvedilol (Coreg -) 12.5 mg PO BID [facility] Last Admin: 07/20/19 23:52 Dose: 12.5 mg Clonidine HCl (Catapres Tts Patch -) 0.2 mg TD MCMULLEN [facility] Last Admin: 07/16/19 20:15 Dose: 0.2 mg Ergocalciferol (Drisdol -) 50,000 unit PO MCMULLEN [facility] Last Admin: 07/16/19 20:15 Dose: 50,000 unit Folic Acid (Folic Acid -) 1 mg PO DAILY [facility] Last Admin: 07/20/19 12:07 Dose: 1 mg Hydralazine HCl (Apresoline -) 25 mg PO TID [facility] Last Admin: 07/21/19 06:10 Dose: 25 mg Sodium Chloride (Normal Saline -) 250 mls @ 3,000 mls/hr IV PRN PRN PRN Reason: Hypotension during Dialysis Insulin Aspart (Novolog Vial Sliding Scale -) 1 vial SQ HS [facility]; Protocol Last Admin: 07/20/19 23:56 Dose: Not Given Insulin Aspart (Novolog Vial Sliding Scale -) 1 vial SQ BIDAC [facility]; Protocol Last Admin: 07/21/19 06:15 Dose: Not Given - Objective Vital Signs: Vital Signs Temperature 98.4 F 07/21/19 09:28 Pulse Rate 64 07/21/19 09:28 Respiratory Rate 18 07/21/19 09:28 Blood Pressure 145/68 07/21/19 09:28 O2 Sat by Pulse Oximetry (%) 97 07/20/19 21:00 Constitutional: Yes: No Distress, Calm Cardiovascular: Yes: Regular Rate and Rhythm Respiratory: Yes: Regular, CTA Bilaterally Gastrointestinal: Yes: Normal Bowel Sounds, Soft Musculoskeletal: Yes: WNL Extremities: Yes: WNL Labs: CBC, BMP 07/21/19 07:40 07/21/19 07:40 INR, PTT INR 0.93 (0.83-1.09) 07/16/19 15:54 Assessment/Plan 1. ESRD 2. GI bleed 3. dementia 4. dysphagia 5. anemia 6. CAD 7. hx CABG 8. DM 9. HLD 10 eosinophilia plan plan for colonoscopy please send stool studies rest continue current mgmt
[2019-07-21] MEDS: CARVEDILOL 12.5 MG TABLET (FP) PO SCH ×2 (10:20→21:29)
[2019-07-21] MEDS: FOLIC ACID 1 MG TABLET (FP) PO SCH (10:20)
[2019-07-21] MEDS: amLODIPine BESYLATE 10 MG TABLET (FP) PO SCH (10:20)
[2019-07-21 10:31] LABS: ANISOCYTOSIS 0; MACROCYTOSIS 0; PLATELET ESTIMATE DECREASED
--- NOTE | 2019-07-21 10:49 | PN ---
Progress Note (short form) - Note Progress Note: Patient did not complete bowel prep yesterday. Despite reordering golyteley prep this morning and encouragement from his nurse, patient still slowly drinking and still havin muddy brown bowel movements. Deferring colonoscopy today. ordered MiraLAX BID followed by reprep on wednesday for colonoscopy 07/25.
--- NOTE | 2019-07-21 11:37 | PN ---
Progress Note (short form) - Note Progress Note: pt seen/ examined events noted Vital Signs Temp 98.4 F 07/21/19 09:28 Pulse 64 07/21/19 09:28 Resp 18 07/21/19 09:28 BP 145/68 07/21/19 09:28 Pulse Ox 97 07/20/19 21:00 Intake & Output 07/20/19 07/20/19 07/21/19 11:59 23:59 11:59 Intake Total 500 1120 400 Output Total 2300 Balance -1800 1120 400 Intake: IVPB 500 Oral 1120 400 Output: Fluid Removed, 2300 Hemodialysis Other: Voiding Method Incontinent Incontinent # Unmeasured Voids Void 1 1 Bowel Movement No No Yes # Bowel Movements 4 Active Medications Amlodipine Besylate (Norvasc -) 10 mg PO DAILY [facility] Last Admin: 07/21/19 10:20 Dose: 10 mg Bisacodyl (Dulcolax -) 20 mg PO ONCE ONE Stop: 07/24/19 10:01 Carvedilol (Coreg -) 12.5 mg PO BID [facility] Last Admin: 07/21/19 10:20 Dose: 12.5 mg Clonidine HCl (Catapres Tts Patch -) 0.2 mg TD MCMULLEN [facility] Last Admin: 07/16/19 20:15 Dose: 0.2 mg Ergocalciferol (Drisdol -) 50,000 unit PO MCMULLEN [facility] Last Admin: 07/16/19 20:15 Dose: 50,000 unit Folic Acid (Folic Acid -) 1 mg PO DAILY [facility] Last Admin: 07/21/19 10:20 Dose: 1 mg Hydralazine HCl (Apresoline -) 25 mg PO TID [facility] Last Admin: 07/21/19 06:10 Dose: 25 mg Sodium Chloride (Normal Saline -) 250 mls @ 3,000 mls/hr IV PRN PRN PRN Reason: Hypotension during Dialysis Insulin Aspart (Novolog Vial Sliding Scale -) 1 vial SQ HS [facility]; Protocol Last Admin: 07/20/19 23:56 Dose: Not Given Insulin Aspart (Novolog Vial Sliding Scale -) 1 vial SQ BIDAC [facility]; Protocol Last Admin: 07/21/19 06:15 Dose: Not Given Polyethylene Glycol (Miralax (For Daily Use) -) 17 gm PO BID [facility] Polyethylene Glycol/Electrolytes (Golytely Solution -) 4,000 ml PO ONCE ONE Stop: 07/24/19 12:01 CBC, BMP 07/21/19 07:40 07/21/19 07:40 Physical Exam [id number] Lungs decreased Abd- soft, NT no edema PLAN apple core lesion on CT abd weight loss eosinophilia pancytopenia ESRD on HD -- Did not prep last night properly colonoscopy to be postponed for wednesday discussed with RN and Dr. Fiore will follow Problem List - Problems (1) Colonic thickening Code(s): K63.9 - DISEASE OF INTESTINE, UNSPECIFIED (2) CAD (coronary artery disease) Code(s): I25.10 - ATHSCL HEART DISEASE OF [place] CORONARY ARTERY W/O ANG PCTRS Qualifiers: Coronary Disease-Associated Artery/Lesion type: [place] artery [place] vs. transplanted heart: [place] heart Associated angina: without angina Qualified Code(s): I25.10 - Atherosclerotic heart disease of [place] coronary artery without angina pectoris (3) ESRD (end stage renal disease) Code(s): N18.6 - END STAGE RENAL DISEASE (4) HTN (hypertension) Code(s): I10 - ESSENTIAL (PRIMARY) HYPERTENSION (5) Hypertensive cardiomyopathy Code(s): I11.9 - HYPERTENSIVE HEART DISEASE WITHOUT HEART FAILURE; I43 - CARDIOMYOPATHY IN DISEASES CLASSIFIED ELSEWHERE Qualifiers: Heart failure presence: with heart failure Qualified Code(s): I11.0 - Hypertensive heart disease with heart failure; I43 - Cardiomyopathy in diseases classified elsewhere (6) Weight loss Code(s): R63.4 - ABNORMAL WEIGHT LOSS Problem List - Problems (1) Colonic thickening Code(s): K63.9 - DISEASE OF INTESTINE, UNSPECIFIED (2) Colonoscopy planned Code(s): [id number] - (3) CAD (coronary artery disease) Code(s): I25.10 - ATHSCL HEART DISEASE OF [place] CORONARY ARTERY W/O ANG PCTRS Qualifiers: Coronary Disease-Associated Artery/Lesion type: [place] artery [place] vs. transplanted heart: [place] heart Associated angina: without angina Qualified Code(s): I25.10 - Atherosclerotic heart disease of [place] coronary artery without angina pectoris (4) ESRD (end stage renal disease) Code(s): N18.6 - END STAGE RENAL DISEASE
--- NOTE | 2019-07-21 14:27 | PN ---
Progress Note, Physician History of Present Illness: Pt seen and examined at bedside. He is awake and appears comfortable. - Current Medication List Current Medications: Active Medications Amlodipine Besylate (Norvasc -) 10 mg PO DAILY [facility] Last Admin: 07/21/19 10:20 Dose: 10 mg Bisacodyl (Dulcolax -) 20 mg PO ONCE ONE Stop: 07/24/19 10:01 Carvedilol (Coreg -) 12.5 mg PO BID [facility] Last Admin: 07/21/19 10:20 Dose: 12.5 mg Clonidine HCl (Catapres Tts Patch -) 0.2 mg TD MCMULLEN [facility] Last Admin: 07/16/19 20:15 Dose: 0.2 mg Ergocalciferol (Drisdol -) 50,000 unit PO MCMULLEN [facility] Last Admin: 07/16/19 20:15 Dose: 50,000 unit Folic Acid (Folic Acid -) 1 mg PO DAILY [facility] Last Admin: 07/21/19 10:20 Dose: 1 mg Hydralazine HCl (Apresoline -) 25 mg PO TID [facility] Last Admin: 07/21/19 13:26 Dose: 25 mg Sodium Chloride (Normal Saline -) 250 mls @ 3,000 mls/hr IV PRN PRN PRN Reason: Hypotension during Dialysis Insulin Aspart (Novolog Vial Sliding Scale -) 1 vial SQ HS [facility]; Protocol Last Admin: 07/20/19 23:56 Dose: Not Given Insulin Aspart (Novolog Vial Sliding Scale -) 1 vial SQ BIDAC [facility]; Protocol Last Admin: 07/21/19 06:15 Dose: Not Given Polyethylene Glycol (Miralax (For Daily Use) -) 17 gm PO BID [facility] Polyethylene Glycol/Electrolytes (Golytely Solution -) 4,000 ml PO ONCE ONE Stop: 07/24/19 12:01 - Objective Vital Signs: Vital Signs Temperature 98.4 F 07/21/19 09:28 Pulse Rate 64 07/21/19 09:28 Respiratory Rate 18 07/21/19 09:28 Blood Pressure 145/68 07/21/19 09:28 O2 Sat by Pulse Oximetry (%) 98 07/21/19 09:00 Constitutional: Yes: Calm Eyes: Yes: Conjunctiva Clear HENT: Yes: Atraumatic Neck: Yes: Supple Cardiovascular: Yes: S1, S2 Respiratory: Yes: CTA Bilaterally Gastrointestinal: Yes: Soft Genitourinary: Yes: WNL Musculoskeletal: Yes: WNL Edema: No Neurological: Yes: Confusion Labs: CBC, BMP 07/21/19 07:40 07/21/19 07:40 INR, PTT INR 0.93 (0.83-1.09) 07/16/19 15:54 Problem List - Problems (1) ESRD (end stage renal disease) Code(s): N18.6 - END STAGE RENAL DISEASE Assessment/Plan Current Medications Generic Name Dose Route Start Last Admin Trade Name Freq PRN Reason Stop Dose Admin Amlodipine Besylate 10 mg 07/17/19 10:00 07/21/19 10:20 Norvasc - PO 10 mg DAILY [facility] Administration Bisacodyl 20 mg 07/24/19 10:00 Dulcolax - PO 07/24/19 10:01 ONCE ONE Carvedilol 12.5 mg 07/16/19 22:00 07/21/19 10:20 Coreg - PO 12.5 mg BID BRAD Administration Clonidine HCl 0.2 mg 07/16/19 19:00 07/16/19 20:15 Catapres Tts Patch - TD 0.2 mg MCMULLEN [facility] Administration Ergocalciferol 50,000 unit 07/16/19 19:00 07/16/19 20:15 Drisdol - PO 50,000 unit MCMULLEN [facility] Administration Folic Acid 1 mg 07/17/19 10:00 07/21/19 10:20 Folic Acid - PO 1 mg DAILY [facility] Administration Hydralazine HCl 25 mg 07/16/19 22:00 07/21/19 13:26 Apresoline - PO 25 mg TID [facility] Administration Sodium Chloride 250 mls @ 3,000 mls/hr 07/21/19 09:24 Normal Saline - IV PRN PRN Hypotension during Dialysis Insulin Aspart 1 vial 07/16/19 22:00 07/20/19 23:56 Novolog Vial Sliding Scale - SQ Not Given HS [facility] Protocol Insulin Aspart 1 vial 07/18/19 16:30 07/21/19 06:15 Novolog Vial Sliding Scale - SQ Not Given BIDAC [facility] Protocol Polyethylene Glycol 17 gm 07/22/19 10:00 Miralax (For Daily Use) - PO BID [facility] Polyethylene Glycol/Electrolytes 4,000 ml 07/24/19 12:00 Golytely Solution - PO 07/24/19 12:01 ONCE ONE Impression 1. ESRD 2. GI bleed 3. dementia 4. dysphagia 5. anemia 6. CAD 7. hx CABG 8. DM 9. HLD Plan - HD tomorrow - GI input appreciated - G workup in progress - monitor hg - 2 k bath f180 3:30, abf [address] Dr Siu
[2019-07-22] MEDS: hydrALAZINE HCL 25 MG TABLET (FP) PO SCH ×3 (06:33→21:10)
[2019-07-22] MEDS: INSULIN SLIDING SCALE (NOVOLOG) 1 VIAL SQ SCH ×3 (08:01→21:11)
[2019-07-22 09:03] LABS: BLOOD UREA NITROGEN 28.8 mg/dL (7-18); CALCIUM 9.1 mg/dL (8.5-10.1); CREATININE 4.5 mg/dL (0.55-1.3); POTASSIUM 3.6 mmol/L (3.5-5.1)
[2019-07-22 09:07] LABS: HEMATOCRIT 39.3 % (35.4-49); HEMOGLOBIN 13.1 GM/dL (11.7-16.9); MCH 31.2 pg (25.7-33.7); MCHC 33.3 g/dl (32.0-35.9); MEAN CELL VOLUME 93.7 fl (80-96); MEAN PLT VOLUME 9.3 fl (7.5-11.1); PLATELET COUNT 113 K/MM3 (134-434); RBC 4.19 M/mm3 (4.00-5.60); RDW 15.9 % (11.9-15.9); WHITE BLOOD COUNT 3.3 K/mm3 (4.0-10.0)
--- NOTE | 2019-07-22 11:27 | PN ---
Progress Note (short form) - Note Progress Note: pt seen/ examined in dialysis. comfortable Vital Signs Temp 98.2 F 07/22/19 07:35 Pulse 59 L 07/22/19 10:40 Resp 18 07/22/19 10:40 BP 169/72 07/22/19 10:40 Pulse Ox 98 07/21/19 21:00 Intake & Output 07/21/19 07/21/19 07/22/19 11:59 23:59 11:59 Intake Total 400 780 350 Balance 400 780 350 Intake: IV 200 Normal Saline - 250 ml @ 200 3000 mls/hr IV PRN PRN Rx #:[id number] Oral 400 780 150 Other: Voiding Method Incontinent Bedside Commode # Unmeasured Voids Void 3 2 Bowel Movement Yes No No # Bowel Movements 4 4 Body Mass Index (BMI) 20.2 Active Medications Amlodipine Besylate (Norvasc -) 10 mg PO DAILY [facility] Last Admin: 07/21/19 10:20 Dose: 10 mg Bisacodyl (Dulcolax -) 20 mg PO ONCE ONE Stop: 07/24/19 10:01 Carvedilol (Coreg -) 12.5 mg PO BID [facility] Last Admin: 07/21/19 21:29 Dose: 12.5 mg Clonidine HCl (Catapres Tts Patch -) 0.2 mg TD MCMULLEN [facility] [place] Last Admin: 07/16/19 20:15 Dose: 0.2 mg Ergocalciferol (Drisdol -) 50,000 unit PO MCMULLEN [facility] Last Admin: 07/16/19 20:15 Dose: 50,000 unit Folic Acid (Folic Acid -) 1 mg PO DAILY [facility] Last Admin: 07/21/19 10:20 Dose: 1 mg Hydralazine HCl (Apresoline -) 25 mg PO TID [facility] Last Admin: 07/22/19 06:33 Dose: 25 mg Sodium Chloride (Normal Saline -) 250 mls @ 3,000 mls/hr IV PRN PRN PRN Reason: Hypotension during Dialysis Sodium Chloride (Normal Saline -) 250 mls @ 3,000 mls/hr IV PRN PRN PRN Reason: Hypotension during Dialysis Stop: 07/22/19 14:27 Insulin Aspart (Novolog Vial Sliding Scale -) 1 vial SQ HS [facility]; Protocol Last Admin: 07/21/19 21:29 Dose: Not Given Insulin Aspart (Novolog Vial Sliding Scale -) 1 vial SQ BIDAC [facility]; Protocol Last Admin: 07/22/19 08:01 Dose: Not Given Polyethylene Glycol (Miralax (For Daily Use) -) 17 gm PO BID [facility] Polyethylene Glycol/Electrolytes (Golytely Solution -) 4,000 ml PO ONCE ONE Stop: 07/24/19 12:01 CBC, BMP 07/22/19 07:45 Physical Exam [id number] Lungs decreased Abd- soft, NT no edema PLAN apple core lesion on CT abd weight loss eosinophilia pancytopenia ESRD on HD -- Did not prep last night properly colonoscopy to be postponed for Wednesday discussed with RN and Dr. Fiore stool studies pending i/d following will follow Problem List - Problems (1) Colonic thickening Code(s): K63.9 - DISEASE OF INTESTINE, UNSPECIFIED (2) Colonoscopy planned Code(s): [id number] - (3) CAD (coronary artery disease) Code(s): I25.10 - ATHSCL HEART DISEASE OF [place] CORONARY ARTERY W/O ANG PCTRS Qualifiers: Coronary Disease-Associated Artery/Lesion type: [place] artery [place] vs. transplanted heart: [place] heart Associated angina: without angina Qualified Code(s): I25.10 - Atherosclerotic heart disease of [place] coronary artery without angina pectoris (4) ESRD (end stage renal disease) Code(s): N18.6 - END STAGE RENAL DISEASE
[2019-07-22 11:51] LABS: BLOOD UREA NITROGEN 6.6 mg/dL (7-18); CREATININE 1.4 mg/dL (0.55-1.3)
[2019-07-22] MEDS: amLODIPine BESYLATE 10 MG TABLET (FP) PO SCH (11:52)
[2019-07-22] MEDS: POLYETHYLENE GLYCOL 3350 119 GM BTL PO SCH ×2 (11:52→21:08)
[2019-07-22] MEDS: FOLIC ACID 1 MG TABLET (FP) PO SCH (11:52)
[2019-07-22] MEDS: CARVEDILOL 12.5 MG TABLET (FP) PO SCH ×2 (11:52→21:10)
--- NOTE | 2019-07-22 15:10 | PN ---
Progress Note, Physician History of Present Illness: Pt seen and examined. Events noted. He is alert. Denies abd pain/SOB/pruritis. Has no specific complaints. - Current Medication List Current Medications: Active Medications Amlodipine Besylate (Norvasc -) 10 mg PO DAILY [facility] Last Admin: 07/22/19 11:52 Dose: 10 mg Bisacodyl (Dulcolax -) 20 mg PO ONCE ONE Stop: 07/24/19 10:01 Carvedilol (Coreg -) 12.5 mg PO BID [facility] Last Admin: 07/22/19 11:52 Dose: 12.5 mg Clonidine HCl (Catapres Tts Patch -) 0.2 mg TD [facility] Last Admin: 07/16/19 20:15 Dose: 0.2 mg Ergocalciferol (Drisdol -) 50,000 unit PO [facility] Last Admin: 07/16/19 20:15 Dose: 50,000 unit Folic Acid (Folic Acid -) 1 mg PO DAILY [facility] Last Admin: 07/22/19 11:52 Dose: 1 mg Hydralazine HCl (Apresoline -) 25 mg PO TID [facility] Last Admin: 07/22/19 13:40 Dose: 25 mg Sodium Chloride (Normal Saline -) 250 mls @ 3,000 mls/hr IV PRN PRN PRN Reason: Hypotension during Dialysis Insulin Aspart (Novolog Vial Sliding Scale -) 1 vial SQ HS [facility]; Protocol Last Admin: 07/21/19 21:29 Dose: Not Given Insulin Aspart (Novolog Vial Sliding Scale -) 1 vial SQ BIDAC [facility]; Protocol Last Admin: 07/22/19 08:01 Dose: Not Given Polyethylene Glycol (Miralax (For Daily Use) -) 17 gm PO BID [facility] Last Admin: 07/22/19 11:52 Dose: 17 gm Polyethylene Glycol/Electrolytes (Golytely Solution -) 4,000 ml PO ONCE ONE Stop: 07/24/19 12:01 - Objective Vital Signs: Vital Signs Temperature 97.4 F L 07/22/19 11:00 Pulse Rate 61 07/22/19 11:31 Respiratory Rate 18 07/22/19 11:31 Blood Pressure 164/68 07/22/19 11:31 O2 Sat by Pulse Oximetry (%) 95 07/22/19 09:00 Constitutional: Yes: No Distress, Calm Cardiovascular: Yes: Regular Rate and Rhythm Respiratory: Yes: CTA Bilaterally Gastrointestinal: Yes: Normal Bowel Sounds, Soft Genitourinary: Yes: WNL Extremities: Yes: WNL Integumentary: Yes: WNL Neurological: Yes: Alert Labs: CBC, BMP 07/22/19 07:45 07/22/19 11:10 INR, PTT INR 0.93 (0.83-1.09) 07/16/19 15:54 Laboratory Tests 07/16/19 07/16/19 07/16/19 15:10 15:54 15:54 WBC 3.5 L Corrected WBC (auto) RBC 4.12 Hgb 12.9 Hct 38.8 D MCV 94.1 MCH 31.2 MCHC 33.2 RDW 16.5 H Plt Count 106 L D MPV 10.2 D Absolute Neuts (auto) 1.0 L Total Counted 100 Neutrophils % 29.1 L D Neutrophils % (Manual) 28.0 L D Band Neutrophils % Lymphocytes % 19.8 D Lymphocytes % (Manual) 20.0 D Monocytes % 12.1 H Monocytes % (Manual) 15 H Eosinophils % 36.8 H* D Eosinophils % (Manual) 37.0 H D Basophils % 2.2 H D Basophils % (Manual) Myelocytes % (Man) Promyelocytes % (Man) Blast Cells % (Manual) Nucleated RBC % 0 Metamyelocytes Hypochromia Platelet Estimate Decreased Platelet Comment No clumping noted Polychromasia Poikilocytosis Anisocytosis Microcytosis Macrocytosis PT with INR INR PTT (Actin FS) 31.9 Sodium Potassium Chloride Carbon Dioxide Anion Gap BUN Creatinine Est GFR (CKD-EPI)AfAm Est GFR (CKD-EPI)NonAf POC Glucometer Random Glucose Hemoglobin A1c % Calcium Total Bilirubin AST ALT Alkaline Phosphatase Troponin I Total Protein Albumin Lipase Vitamin B12 Serum Folate TSH Stool Occult Blood Negative CLAR[facility] Screen Hep Bs Antigen Hep C Ab Diagnostic Strongyloides IgG Ab 07/16/19 07/16/19 07/16/19 15:54 15:54 15:54 WBC Corrected WBC (auto) RBC Hgb Hct MCV MCH MCHC RDW Plt Count MPV Absolute Neuts (auto) Total Counted Neutrophils % Neutrophils % (Manual) Band Neutrophils % Lymphocytes % Lymphocytes % (Manual) Monocytes % Monocytes % (Manual) Eosinophils % Eosinophils % (Manual) Basophils % Basophils % (Manual) Myelocytes % (Man) Promyelocytes % (Man) Blast Cells % (Manual) Nucleated RBC % Metamyelocytes Hypochromia Platelet Estimate Platelet Comment Polychromasia Poikilocytosis Anisocytosis Microcytosis Macrocytosis PT with INR 11.00 INR 0.93 PTT (Actin FS) Sodium 132 L Potassium 4.8 Chloride 93 L Carbon Dioxide 31 Anion Gap 8 BUN 47.2 H Creatinine 3.9 H Est GFR (CKD-EPI)AfAm 17.96 Est GFR (CKD-EPI)NonAf 15.49 POC Glucometer Random Glucose 180 H Hemoglobin A1c % Calcium 9.1 Total Bilirubin 0.8 AST 92 H ALT 69 H Alkaline Phosphatase 276 H Troponin I < 0.02 Cancelled Total Protein 6.9 Albumin 3.5 Lipase 233 Vitamin B12 Serum Folate TSH Stool Occult Blood [place] Screen Hep Bs Antigen Hep C Ab Diagnostic Strongyloides IgG Ab 07/16/19 07/17/19 07/17/19 22:53 07:00 07:00 WBC 3.1 L Corrected WBC (auto) RBC 3.96 L Hgb 12.4 Hct 37.2 MCV 93.9 MCH 31.4 MCHC 33.5 RDW 16.4 H Plt Count 97 L MPV 9.9 Absolute Neuts (auto) Total Counted Neutrophils % Neutrophils % (Manual) Band Neutrophils % Lymphocytes % Lymphocytes % (Manual) Monocytes % Monocytes % (Manual) Eosinophils % Eosinophils % (Manual) Basophils % Basophils % (Manual) Myelocytes % (Man) Promyelocytes % (Man) Blast Cells % (Manual) Nucleated RBC % Metamyelocytes Hypochromia Platelet Estimate Platelet Comment Polychromasia Poikilocytosis Anisocytosis Microcytosis Macrocytosis PT with INR INR PTT (Actin FS) Sodium 134 L Potassium 4.4 Chloride 95 L Carbon Dioxide 29 Anion Gap 10 BUN 56.2 H Creatinine 4.5 H Est GFR (CKD-EPI)AfAm 15.10 Est GFR (CKD-EPI)NonAf 13.03 POC Glucometer 125 Random Glucose 66 L Hemoglobin A1c % Calcium 8.9 Total Bilirubin 0.8 AST 51 H ALT 55 Alkaline Phosphatase 258 H Troponin I Total Protein 6.4 Albumin 3.4 Lipase Vitamin B12 Serum Folate TSH 2.25 D Stool Occult Blood [place] Screen Hep Bs Antigen Hep C Ab Diagnostic Strongyloides IgG Ab 07/17/19 07/17/19 07/18/19 07:21 22:18 06:16 WBC Corrected WBC (auto) RBC Hgb Hct MCV MCH MCHC RDW Plt Count MPV Absolute Neuts (auto) Total Counted Neutrophils % Neutrophils % (Manual) Band Neutrophils % Lymphocytes % Lymphocytes % (Manual) Monocytes % Monocytes % (Manual) Eosinophils % Eosinophils % (Manual) Basophils % Basophils % (Manual) Myelocytes % (Man) Promyelocytes % (Man) Blast Cells % (Manual) Nucleated RBC % Metamyelocytes Hypochromia Platelet Estimate Platelet Comment Polychromasia Poikilocytosis Anisocytosis Microcytosis Macrocytosis PT with INR INR PTT (Actin FS) Sodium Potassium Chloride Carbon Dioxide Anion Gap BUN Creatinine Est GFR (CKD-EPI)AfAm Est GFR (CKD-EPI)NonAf POC Glucometer 118 65 Random Glucose Hemoglobin A1c % 5.6 Calcium Total Bilirubin AST ALT Alkaline Phosphatase Troponin I Total Protein Albumin Lipase Vitamin B12 Serum Folate TSH Stool Occult Blood [place] Screen Hep Bs Antigen Hep C Ab Diagnostic Strongyloides IgG Ab 07/18/19 07/18/19 07/18/19 09:30 09:30 09:30 WBC 3.0 L Corrected WBC (auto) RBC 4.16 Hgb 13.0 Hct 39.2 MCV 94.1 MCH 31.2 MCHC 33.1 RDW 16.4 H Plt Count 97 L MPV 10.1 Absolute Neuts (auto) Total Counted Neutrophils % Neutrophils % (Manual) Band Neutrophils % Lymphocytes % Lymphocytes % (Manual) Monocytes % Monocytes % (Manual) Eosinophils % Eosinophils % (Manual) Basophils % Basophils % (Manual) Myelocytes % (Man) Promyelocytes % (Man) Blast Cells % (Manual) Nucleated RBC % Metamyelocytes Hypochromia Platelet Estimate Platelet Comment Polychromasia Poikilocytosis Anisocytosis Microcytosis Macrocytosis PT with INR INR PTT (Actin FS) Sodium Potassium Chloride Carbon Dioxide Anion Gap BUN Creatinine Est GFR (CKD-EPI)AfAm Est GFR (CKD-EPI)NonAf POC Glucometer Random Glucose Hemoglobin A1c % Calcium Total Bilirubin AST ALT Alkaline Phosphatase Troponin I Total Protein Albumin Lipase Vitamin B12 Serum Folate TSH Stool Occult Blood [place] Screen Hep Bs Antigen Negative Hep C Ab Diagnostic <0.1 Strongyloides IgG Ab 07/18/19 07/18/19 07/18/19 09:37 17:03 21:48 WBC Corrected WBC (auto) RBC Hgb Hct MCV MCH MCHC RDW Plt Count MPV Absolute Neuts (auto) Total Counted Neutrophils % Neutrophils % (Manual) Band Neutrophils % Lymphocytes % Lymphocytes % (Manual) Monocytes % Monocytes % (Manual) Eosinophils % Eosinophils % (Manual) Basophils % Basophils % (Manual) Myelocytes % (Man) Promyelocytes % (Man) Blast Cells % (Manual) Nucleated RBC % Metamyelocytes Hypochromia Platelet Estimate Platelet Comment Polychromasia Poikilocytosis Anisocytosis Microcytosis Macrocytosis PT with INR INR PTT (Actin FS) Sodium 128 L Potassium 5.2 H Chloride 92 L Carbon Dioxide 25 Anion Gap 11 BUN 67.0 H Creatinine 5.6 H Est GFR (CKD-EPI)AfAm 11.60 Est GFR (CKD-EPI)NonAf 10.00 POC Glucometer 139 122 Random Glucose 123 H Hemoglobin A1c % Calcium 9.1 Total Bilirubin AST ALT Alkaline Phosphatase Troponin I Total Protein Albumin Lipase Vitamin B12 Serum Folate TSH Stool Occult Blood [place] Screen Hep Bs Antigen Hep C Ab Diagnostic Strongyloides IgG Ab 07/19/19 07/19/19 07/19/19 06:10 06:10 06:10 WBC 3.1 L Corrected WBC (auto) RBC 4.02 Hgb 12.5 Hct 38.1 MCV 94.7 MCH 31.2 MCHC 32.9 RDW 15.9 Plt Count 93 L MPV 9.3 Absolute Neuts (auto) 1.0 L Total Counted Neutrophils % 31.9 L Neutrophils % (Manual) 33.3 L Band Neutrophils % 0.0 Lymphocytes % 26.4 D Lymphocytes % (Manual) 24.5 D Monocytes % 11.8 H Monocytes % (Manual) 11 H Eosinophils % 28.6 H* Eosinophils % (Manual) 26.5 H Basophils % 1.3 Basophils % (Manual) 1.9 Myelocytes % (Man) 1 D Promyelocytes % (Man) 0 Blast Cells % (Manual) 0 Nucleated RBC % 0 Metamyelocytes 2 D Hypochromia 0 Platelet Estimate Decreased Platelet Comment Polychromasia 0 Poikilocytosis 0 Anisocytosis 0 Microcytosis 0 Macrocytosis 0 PT with INR INR PTT (Actin FS) Sodium Potassium Chloride Carbon Dioxide Anion Gap BUN Creatinine Est GFR (CKD-EPI)AfAm Est GFR (CKD-EPI)NonAf POC Glucometer Random Glucose Hemoglobin A1c % Calcium Total Bilirubin AST ALT Alkaline Phosphatase Troponin I Total Protein Albumin Lipase Vitamin B12 809 Serum Folate 92 H TSH Stool Occult Blood [place] Screen Hep Bs Antigen Hep C Ab Diagnostic Strongyloides IgG Ab Positive H 07/19/19 07/19/19 07/19/19 06:24 12:27 16:27 WBC Corrected WBC (auto) RBC Hgb Hct MCV MCH MCHC RDW Plt Count MPV Absolute Neuts (auto) Total Counted Neutrophils % Neutrophils % (Manual) Band Neutrophils % Lymphocytes % Lymphocytes % (Manual) Monocytes % Monocytes % (Manual) Eosinophils % Eosinophils % (Manual) Basophils % Basophils % (Manual) Myelocytes % (Man) Promyelocytes % (Man) Blast Cells % (Manual) Nucleated RBC % Metamyelocytes Hypochromia Platelet Estimate Platelet Comment Polychromasia Poikilocytosis Anisocytosis Microcytosis Macrocytosis PT with INR INR PTT (Actin FS) Sodium Potassium Chloride Carbon Dioxide Anion Gap BUN Creatinine Est GFR (CKD-EPI)AfAm Est GFR (CKD-EPI)NonAf POC Glucometer 62 126 156 Random Glucose Hemoglobin A1c % Calcium Total Bilirubin AST ALT Alkaline Phosphatase Troponin I Total Protein Albumin Lipase Vitamin B12 Serum Folate TSH Stool Occult Blood [place] Screen Hep Bs Antigen Hep C Ab Diagnostic Strongyloides IgG Ab 07/19/19 07/20/19 07/20/19 21:14 06:32 06:48 WBC Corrected WBC (auto) RBC Hgb Hct MCV MCH MCHC RDW Plt Count MPV Absolute Neuts (auto) Total Counted Neutrophils % Neutrophils % (Manual) Band Neutrophils % Lymphocytes % Lymphocytes % (Manual) Monocytes % Monocytes % (Manual) Eosinophils % Eosinophils % (Manual) Basophils % Basophils % (Manual) Myelocytes % (Man) Promyelocytes % (Man) Blast Cells % (Manual) Nucleated RBC % Metamyelocytes Hypochromia Platelet Estimate Platelet Comment Polychromasia Poikilocytosis Anisocytosis Microcytosis Macrocytosis PT with INR INR PTT (Actin FS) Sodium Potassium Chloride Carbon Dioxide Anion Gap BUN Creatinine Est GFR (CKD-EPI)AfAm Est GFR (CKD-EPI)NonAf POC Glucometer 257 61 Random Glucose Hemoglobin A1c % Calcium Total Bilirubin AST ALT Alkaline Phosphatase Troponin I Total Protein Albumin Lipase Vitamin B12 Serum Folate TSH Stool Occult Blood [place] Screen Negative Hep Bs Antigen Hep C Ab Diagnostic Strongyloides IgG Ab 07/20/19 07/20/19 07/20/19 07:07 07:20 07:20 WBC 3.0 L Corrected WBC (auto) RBC 4.01 Hgb 12.5 Hct 37.8 MCV 94.2 MCH 31.2 MCHC 33.2 RDW 15.9 Plt Count 97 L MPV 9.5 Absolute Neuts (auto) Total Counted Neutrophils % Neutrophils % (Manual) 31.3 L Band Neutrophils % 0.0 Lymphocytes % Lymphocytes % (Manual) 27.3 Monocytes % Monocytes % (Manual) 4 Eosinophils % Eosinophils % (Manual) 37.4 H Basophils % Basophils % (Manual) 0.0 Myelocytes % (Man) 0 D Promyelocytes % (Man) 0 Blast Cells % (Manual) 0 Nucleated RBC % 0 Metamyelocytes 0 D Hypochromia 0 Platelet Estimate Decreased Platelet Comment Polychromasia 0 Poikilocytosis 0 Anisocytosis 0 Microcytosis 0 Macrocytosis 0 PT with INR INR PTT (Actin FS) Sodium 136 Potassium 3.7 Chloride 96 L Carbon Dioxide 30 Anion Gap 10 BUN 45.6 H Creatinine 4.8 H Est GFR (CKD-EPI)AfAm 13.97 Est GFR (CKD-EPI)NonAf 12.05 POC Glucometer 110 Random Glucose 107 H Hemoglobin A1c % Calcium 8.9 Total Bilirubin AST ALT Alkaline Phosphatase Troponin I Total Protein Albumin Lipase Vitamin B12 Serum Folate TSH Stool Occult Blood [place] Screen Hep Bs Antigen Hep C Ab Diagnostic Strongyloides IgG Ab 07/20/19 07/20/19 07/20/19 10:30 17:32 23:55 WBC Cancelled Corrected WBC (auto) Cancelled RBC Cancelled Hgb Cancelled Hct Cancelled MCV Cancelled MCH Cancelled MCHC Cancelled RDW Cancelled Plt Count Cancelled MPV Cancelled Absolute Neuts (auto) Cancelled Total Counted Neutrophils % Cancelled Neutrophils % (Manual) Band Neutrophils % Lymphocytes % Cancelled Lymphocytes % (Manual) Monocytes % Cancelled Monocytes % (Manual) Eosinophils % Cancelled Eosinophils % (Manual) Basophils % Cancelled Basophils % (Manual) Myelocytes % (Man) Promyelocytes % (Man) Blast Cells % (Manual) Nucleated RBC % Cancelled Metamyelocytes Hypochromia Platelet Estimate Cancelled Platelet Comment Cancelled Polychromasia Poikilocytosis Anisocytosis Microcytosis Macrocytosis PT with INR INR PTT (Actin FS) Sodium Potassium Chloride Carbon Dioxide Anion Gap BUN Creatinine Est GFR (CKD-EPI)AfAm Est GFR (CKD-EPI)NonAf POC Glucometer 125 181 Random Glucose Hemoglobin A1c % Calcium Total Bilirubin AST ALT Alkaline Phosphatase Troponin I Total Protein Albumin Lipase Vitamin B12 Serum Folate TSH Stool Occult Blood [place] Screen Hep Bs Antigen Hep C Ab Diagnostic Strongyloides IgG Ab 07/21/19 07/21/19 07/21/19 06:00 07:40 07:40 WBC 3.5 L Corrected WBC (auto) RBC 4.25 Hgb 13.2 Hct 40.2 MCV 94.6 MCH 31.0 MCHC 32.8 RDW 15.9 Plt Count 117 L D MPV 9.7 Absolute Neuts (auto) 0.9 L Total Counted Neutrophils % 25.1 L D Neutrophils % (Manual) 28.4 L Band Neutrophils % 0.0 Lymphocytes % 26.2 Lymphocytes % (Manual) 18.6 D Monocytes % 13.1 H Monocytes % (Manual) 12 H D Eosinophils % 34.7 H* Eosinophils % (Manual) 36.3 H Basophils % 0.9 Basophils % (Manual) 2.9 H D Myelocytes % (Man) 0 Promyelocytes % (Man) 0 Blast Cells % (Manual) 0 Nucleated RBC % 0 Metamyelocytes 0 Hypochromia 0 Platelet Estimate Decreased Platelet Comment Polychromasia 0 Poikilocytosis 0 Anisocytosis 0 Microcytosis 0 Macrocytosis 0 PT with INR INR PTT (Actin FS) Sodium 141 Potassium 3.3 L Chloride 101 Carbon Dioxide 32 Anion Gap 8 BUN 23.5 H Creatinine 3.3 H Est GFR (CKD-EPI)AfAm 21.98 Est GFR (CKD-EPI)NonAf 18.96 POC Glucometer 103 Random Glucose 94 Hemoglobin A1c % Calcium 9.1 Total Bilirubin AST ALT Alkaline Phosphatase Troponin I Total Protein Albumin Lipase Vitamin B12 Serum Folate TSH Stool Occult Blood [place] Screen Hep Bs Antigen Hep C Ab Diagnostic Strongyloides IgG Ab 07/21/19 07/21/19 07/22/19 17:28 21:28 07:45 WBC Corrected WBC (auto) RBC Hgb Hct MCV MCH MCHC RDW Plt Count MPV Absolute Neuts (auto) Total Counted Neutrophils % Neutrophils % (Manual) Band Neutrophils % Lymphocytes % Lymphocytes % (Manual) Monocytes % Monocytes % (Manual) Eosinophils % Eosinophils % (Manual) Basophils % Basophils % (Manual) Myelocytes % (Man) Promyelocytes % (Man) Blast Cells % (Manual) Nucleated RBC % Metamyelocytes Hypochromia Platelet Estimate Platelet Comment Polychromasia Poikilocytosis Anisocytosis Microcytosis Macrocytosis PT with INR INR PTT (Actin FS) Sodium 140 Potassium 3.6 Chloride 100 Carbon Dioxide 30 Anion Gap 10 BUN 28.8 H Creatinine 4.5 H Est GFR (CKD-EPI)AfAm 15.10 Est GFR (CKD-EPI)NonAf 13.03 POC Glucometer 107 109 Random Glucose 90 Hemoglobin A1c % Calcium 9.1 Total Bilirubin AST ALT Alkaline Phosphatase Troponin I Total Protein Albumin Lipase Vitamin B12 Serum Folate TSH Stool Occult Blood [place] Screen Hep Bs Antigen Hep C Ab Diagnostic Strongyloides IgG Ab 07/22/19 07/22/19 07:45 11:10 WBC 3.3 L Corrected WBC (auto) RBC 4.19 Hgb 13.1 Hct 39.3 MCV 93.7 MCH 31.2 MCHC 33.3 RDW 15.9 Plt Count 113 L MPV 9.3 Absolute Neuts (auto) Total Counted Neutrophils % Neutrophils % (Manual) Band Neutrophils % Lymphocytes % Lymphocytes % (Manual) Monocytes % Monocytes % (Manual) Eosinophils % Eosinophils % (Manual) Basophils % Basophils % (Manual) Myelocytes % (Man) Promyelocytes % (Man) Blast Cells % (Manual) Nucleated RBC % Metamyelocytes Hypochromia Platelet Estimate Platelet Comment Polychromasia Poikilocytosis Anisocytosis Microcytosis Macrocytosis PT with INR INR PTT (Actin FS) Sodium Potassium Chloride Carbon Dioxide Anion Gap BUN 6.6 L Creatinine 1.4 H Est GFR (CKD-EPI)AfAm 61.97 Est GFR (CKD-EPI)NonAf 53.47 POC Glucometer Random Glucose Hemoglobin A1c % Calcium Total Bilirubin AST ALT Alkaline Phosphatase Troponin I Total Protein Albumin Lipase Vitamin B12 Serum Folate TSH Stool Occult Blood [place] Screen Hep Bs Antigen Hep C Ab Diagnostic Strongyloides IgG Ab - ....Imaging Cat Scan: Report Reviewed Problem List - Problems (1) Colonic thickening Code(s): K63.9 - DISEASE OF INTESTINE, UNSPECIFIED (2) Colonoscopy planned Code(s): [id number] - (3) Altered mental status Code(s): R41.82 - ALTERED MENTAL STATUS, UNSPECIFIED (4) CAD (coronary artery disease) Code(s): I25.10 - ATHSCL HEART DISEASE OF [place] CORONARY ARTERY W/O ANG PCTRS Qualifiers: Coronary Disease-Associated Artery/Lesion type: [place] artery [place] vs. transplanted heart: [place] heart Associated angina: without angina Qualified Code(s): I25.10 - Atherosclerotic heart disease of [place] coronary artery without angina pectoris (5) ESRD (end stage renal disease) Code(s): N18.6 - END STAGE RENAL DISEASE (6) Eosinophilia Code(s): D72.1 - EOSINOPHILIA (7) HTN (hypertension) Code(s): I10 - ESSENTIAL (PRIMARY) HYPERTENSION Assessment/Plan 64 y.o. [place] Citizen male presenting for rectal bleed/abnormal CT Colonic lesion Eosinophilia CAD s/p CABG ESRD DM HTN GERD -- Strongyloides IgG positive, awaiting stool O+P results -- Will consider treatment with Ivermectin -- colonoscopy planned -- monitor cbc w diff
--- NOTE | 2019-07-22 20:21 | PN ---
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 ESRD 2. GI bleed 3. dementia 4. dysphagia 5. anemia 6. CAD 7. hx CABG 8. DM 9. HLD Current Medications Amlodipine Besylate (Norvasc -) 10 mg PO DAILY [facility] Last Admin: 07/22/19 11:52 Dose: 10 mg Bisacodyl (Dulcolax -) 20 mg PO ONCE ONE Stop: 07/24/19 10:01 Carvedilol (Coreg -) 12.5 mg PO BID [facility] Last Admin: 07/22/19 11:52 Dose: 12.5 mg Clonidine HCl (Catapres Tts Patch -) 0.2 mg TD [facility]CM[facility]EN [facility] Last Admin: 07/16/19 20:15 Dose: 0.2 mg Ergocalciferol (Drisdol -) 50,000 unit PO [facility] Last Admin: 07/16/19 20:15 Dose: 50,000 unit Folic Acid (Folic Acid -) 1 mg PO DAILY [facility] Last Admin: 07/22/19 11:52 Dose: 1 mg Hydralazine HCl (Apresoline -) 25 mg PO TID [facility] Last Admin: 07/22/19 13:40 Dose: 25 mg Sodium Chloride (Normal Saline -) 250 mls @ 3,000 mls/hr IV PRN PRN PRN Reason: Hypotension during Dialysis Insulin Aspart (Novolog Vial Sliding Scale -) 1 vial SQ HS [facility]; Protocol Last Admin: 07/21/19 21:29 Dose: Not Given Insulin Aspart (Novolog Vial Sliding Scale -) 1 vial SQ BIDAC [facility]; Protocol Last Admin: 07/22/19 17:29 Dose: Not Given Polyethylene Glycol (Miralax (For Daily Use) -) 17 gm PO BID [facility] Last Admin: 07/22/19 11:52 Dose: 17 gm Polyethylene Glycol/Electrolytes (Golytely Solution -) 4,000 ml PO ONCE ONE Stop: 07/24/19 12:01 Last Vital Signs Temp Pulse Resp BP Pulse Ox 98.1 F 60 18 140/56 L 95 07/22/19 18:19 07/22/19 18:19 07/22/19 18:19 07/22/19 18:19 07/22/19 09:00 CBC, BMP 07/22/19 07:45 07/22/19 11:10 IMP- ESRD stable on HD Plan - HD wednesday - GI input appreciated - G workup in progress - monitor hg - 2 k bath f180 3:30, abf 450
[2019-07-23] MEDS: hydrALAZINE HCL 25 MG TABLET (FP) PO SCH ×3 (06:12→21:43)
[2019-07-23] MEDS: INSULIN SLIDING SCALE (NOVOLOG) 1 VIAL SQ SCH ×3 (06:12→21:46)
[2019-07-23 07:01] LABS: BASO % 1.4 % (0-2.0); EOS % 33.3 % (0-4.5); HEMATOCRIT 40.9 % (35.4-49); HEMOGLOBIN 13.7 GM/dL (11.7-16.9); LYMPH % 30.8 % (8-40); MCH 31.3 pg (25.7-33.7); MCHC 33.5 g/dl (32.0-35.9); MEAN CELL VOLUME 93.4 fl (80-96); MEAN PLT VOLUME 9.7 fl (7.5-11.1); MONO % 10.6 % (3.8-10.2); NEUT % 23.9 % (42.8-82.8); PLATELET COUNT 129 K/MM3 (134-434); RBC 4.38 M/mm3 (4.00-5.60); RDW 15.7 % (11.9-15.9); WHITE BLOOD COUNT 2.9 K/mm3 (4.0-10.0)
[2019-07-23] MEDS: FOLIC ACID 1 MG TABLET (FP) PO SCH (10:27)
[2019-07-23] MEDS: amLODIPine BESYLATE 10 MG TABLET (FP) PO SCH (10:27)
[2019-07-23] MEDS: CARVEDILOL 12.5 MG TABLET (FP) PO SCH ×2 (10:27→21:43)
[2019-07-23] MEDS: POLYETHYLENE GLYCOL 3350 119 GM BTL PO SCH ×2 (10:29→21:43)
[2019-07-23 10:58] LABS: ANISOCYTOSIS 1+; MACROCYTOSIS 0; PLATELET ESTIMATE DECREASED; TARGET CELLS 1+; TEAR DROP CELLS 1+
--- NOTE | 2019-07-23 12:23 | PN ---
Progress Note, Physician History of Present Illness: Pt without new complaints. Remains afebrile. Denies abd pain/n/v/d. - Current Medication List Current Medications: Active Medications Amlodipine Besylate (Norvasc -) 10 mg PO DAILY [facility] Last Admin: 07/23/19 10:27 Dose: 10 mg Bisacodyl (Dulcolax -) 20 mg PO ONCE ONE Stop: 07/24/19 10:01 Carvedilol (Coreg -) 12.5 mg PO BID [facility] Last Admin: 07/23/19 10:27 Dose: 12.5 mg Clonidine HCl (Catapres Tts Patch -) 0.2 mg TD [facility]CMULLEN [facility] Last Admin: 07/16/19 20:15 Dose: 0.2 mg Ergocalciferol (Drisdol -) 50,000 unit PO [facility]EN [facility] Last Admin: 07/16/19 20:15 Dose: 50,000 unit Folic Acid (Folic Acid -) 1 mg PO DAILY [facility] Last Admin: 07/23/19 10:27 Dose: 1 mg Hydralazine HCl (Apresoline -) 25 mg PO TID [facility] Last Admin: 07/23/19 06:12 Dose: 25 mg Sodium Chloride (Normal Saline -) 250 mls @ 3,000 mls/hr IV PRN PRN PRN Reason: Hypotension during Dialysis Insulin Aspart (Novolog Vial Sliding Scale -) 1 vial SQ HS [facility]; Protocol Last Admin: 07/22/19 21:11 Dose: Not Given Insulin Aspart (Novolog Vial Sliding Scale -) 1 vial SQ BIDAC [facility]; Protocol Last Admin: 07/23/19 06:12 Dose: Not Given Polyethylene Glycol (Miralax (For Daily Use) -) 17 gm PO BID [facility] Last Admin: 07/23/19 10:29 Dose: 17 gm Polyethylene Glycol/Electrolytes (Golytely Solution -) 4,000 ml PO ONCE ONE Stop: 07/24/19 12:01 - Objective Vital Signs: Vital Signs Temperature 98.1 F 07/23/19 08:58 Pulse Rate 68 07/23/19 08:58 Respiratory Rate 18 07/23/19 08:58 Blood Pressure 179/75 H 07/23/19 08:58 O2 Sat by Pulse Oximetry (%) 98 07/22/19 21:00 Constitutional: Yes: No Distress Cardiovascular: Yes: Regular Rate and Rhythm Respiratory: Yes: CTA Bilaterally Gastrointestinal: Yes: Normal Bowel Sounds, Soft Genitourinary: Yes: WNL Musculoskeletal: Yes: WNL Extremities: Yes: WNL Edema: No Integumentary: Yes: WNL Neurological: Yes: Alert Labs: CBC, BMP 07/23/19 06:40 07/22/19 11:10 INR, PTT INR 0.93 (0.83-1.09) 07/16/19 15:54 Problem List - Problems (1) Colonic thickening Code(s): K63.9 - DISEASE OF INTESTINE, UNSPECIFIED (2) Colonoscopy planned Code(s): [id number] - (3) Altered mental status Code(s): R41.82 - ALTERED MENTAL STATUS, UNSPECIFIED (4) CAD (coronary artery disease) Code(s): I25.10 - ATHSCL HEART DISEASE OF [place] CORONARY ARTERY W/O ANG PCTRS Qualifiers: Coronary Disease-Associated Artery/Lesion type: [place] artery [place] vs. transplanted heart: [place] heart Associated angina: without angina Qualified Code(s): I25.10 - Atherosclerotic heart disease of [place] coronary artery without angina pectoris (5) ESRD (end stage renal disease) Code(s): N18.6 - END STAGE RENAL DISEASE (6) Eosinophilia Code(s): D72.1 - EOSINOPHILIA (7) HTN (hypertension) Code(s): I10 - ESSENTIAL (PRIMARY) HYPERTENSION Assessment/Plan 64 y.o. [facility] male presenting for rectal bleed/abnormal CT Colonic lesion GI bleed Eosinophilia CAD s/p CABG ESRD DM HTN GERD -- Strongyloides IgG positive, awaiting stool O+P results -- awaiting colonoscopy -- wbc low, H/H normal, and plts trending towards normal - monitor cbc w diff , repeat bmp -- denies having any complaints
--- NOTE | 2019-07-23 13:32 | PN ---
Progress Note (short form) - Note Progress Note: comfortable no new issues Vital Signs Temp 98.1 F 07/23/19 08:58 Pulse 68 07/23/19 08:58 Resp 18 07/23/19 08:58 BP 179/75 H 07/23/19 08:58 Pulse Ox 98 07/22/19 21:00 Intake & Output 07/22/19 07/23/19 07/23/19 23:59 11:59 23:59 Intake Total 700 150 480 Balance 700 150 480 Intake: Oral 400 150 240 Oral Supplement 300 240 Other: Voiding Method Bedside Commode Bedside Commode # Unmeasured Voids Void 1 1 Bowel Movement No No No Active Medications Amlodipine Besylate (Norvasc -) 10 mg PO DAILY [facility] Last Admin: 07/23/19 10:27 Dose: 10 mg Bisacodyl (Dulcolax -) 20 mg PO ONCE ONE Stop: 07/24/19 10:01 Carvedilol (Coreg -) 12.5 mg PO BID [facility] Last Admin: 07/23/19 10:27 Dose: 12.5 mg Clonidine HCl (Catapres Tts Patch -) 0.2 mg TD [facility]ULLEN [facility] Last Admin: 07/16/19 20:15 Dose: 0.2 mg Ergocalciferol (Drisdol -) 50,000 unit PO [facility]CMULLEN [facility] Last Admin: 07/16/19 20:15 Dose: 50,000 unit Folic Acid (Folic Acid -) 1 mg PO DAILY [facility] Last Admin: 07/23/19 10:27 Dose: 1 mg Hydralazine HCl (Apresoline -) 25 mg PO TID [facility] Last Admin: 07/23/19 06:12 Dose: 25 mg Sodium Chloride (Normal Saline -) 250 mls @ 3,000 mls/hr IV PRN PRN PRN Reason: Hypotension during Dialysis Insulin Aspart (Novolog Vial Sliding Scale -) 1 vial SQ HS [facility]; Protocol Last Admin: 07/22/19 21:11 Dose: Not Given Insulin Aspart (Novolog Vial Sliding Scale -) 1 vial SQ BIDAC [facility]; Protocol Last Admin: 07/23/19 06:12 Dose: Not Given Polyethylene Glycol (Miralax (For Daily Use) -) 17 gm PO BID [facility] Last Admin: 07/23/19 10:29 Dose: 17 gm Polyethylene Glycol/Electrolytes (Golytely Solution -) 4,000 ml PO ONCE ONE Stop: 07/24/19 12:01 CBC, BMP 07/23/19 06:40 07/22/19 11:10 Physical Exam [id number] Lungs decreased Abd- soft, NT no edema PLAN apple core lesion on CT abd weight loss eosinophilia pancytopenia ESRD on HD -- Did not prep properly colonoscopy to be postponed for Wednesday Had discussed with RN and Dr. Fiore stool studies pending i/d following will follow Problem List - Problems (1) Colonic thickening Code(s): K63.9 - DISEASE OF INTESTINE, UNSPECIFIED (2) Colonoscopy planned Code(s): [id number] - (3) CAD (coronary artery disease) Code(s): I25.10 - ATHSCL HEART DISEASE OF [place] CORONARY ARTERY W/O ANG PCTRS Qualifiers: Coronary Disease-Associated Artery/Lesion type: [place] artery [place] vs. transplanted heart: [place] heart Associated angina: without angina Qualified Code(s): I25.10 - Atherosclerotic heart disease of [place] coronary artery without angina pectoris (4) ESRD (end stage renal disease) Code(s): N18.6 - END STAGE RENAL DISEASE
[2019-07-23] MEDS ORDERED: PT OWN MED DRAWER 7, Y5N ONE (17:42)
[2019-07-23] MEDS: ERGOCALCIFEROL (VIT D2) 50,000 UNIT (1.25 MG) CAPSULE PO SCH (18:04)
[2019-07-23] MEDS: cloNIDine-TTS 0.2 MG/24 HOURS PATCH.TDWK TD SCH (18:04)
--- NOTE | 2019-07-23 21:09 | PN ---
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 ESRD 2. GI bleed 3. dementia 4. dysphagia 5. anemia 6. CAD 7. hx CABG 8. DM 9. HLD Current Medications Amlodipine Besylate (Norvasc -) 10 mg PO DAILY [facility] Last Admin: 07/23/19 10:27 Dose: 10 mg Bisacodyl (Dulcolax -) 20 mg PO ONCE ONE Stop: 07/24/19 10:01 Carvedilol (Coreg -) 12.5 mg PO BID [facility] Last Admin: 07/23/19 10:27 Dose: 12.5 mg Clonidine HCl (Catapres Tts Patch -) 0.2 mg TD [facility] Last Admin: 07/23/19 18:04 Dose: 0.2 mg Ergocalciferol (Drisdol -) 50,000 unit PO [facility] Last Admin: 07/23/19 18:04 Dose: 50,000 unit Folic Acid (Folic Acid -) 1 mg PO DAILY [facility] Last Admin: 07/23/19 10:27 Dose: 1 mg Hydralazine HCl (Apresoline -) 25 mg PO TID [facility] Last Admin: 07/23/19 14:05 Dose: 25 mg Sodium Chloride (Normal Saline -) 250 mls @ 3,000 mls/hr IV PRN PRN PRN Reason: Hypotension during Dialysis Insulin Aspart (Novolog Vial Sliding Scale -) 1 vial SQ HS [facility]; Protocol Last Admin: 07/22/19 21:11 Dose: Not Given Insulin Aspart (Novolog Vial Sliding Scale -) 1 vial SQ BIDAC [facility]; Protocol Last Admin: 07/23/19 17:28 Dose: 2 units Polyethylene Glycol (Miralax (For Daily Use) -) 17 gm PO BID [facility] Last Admin: 07/23/19 10:29 Dose: 17 gm Polyethylene Glycol/Electrolytes (Golytely Solution -) 4,000 ml PO ONCE ONE Stop: 07/24/19 12:01 Last Vital Signs Temp Pulse Resp BP Pulse Ox 98.6 F 69 18 139/60 96 07/23/19 18:30 07/23/19 18:30 07/23/19 18:30 07/23/19 18:30 07/23/19 09:00 lungs clear Heart reg Abd soft nontender Ext no edema CBC, BMP 09/01/19 06:40 CBC, BMP 07/22/19 07:45 07/22/19 11:10 IMP- ESRD stable on HD Plan - HD on wednesday - GI input appreciated - G workup in progress - monitor hg - 2 k bath f180 3:30, abf 450
[2019-07-24] MEDS: INSULIN SLIDING SCALE (NOVOLOG) 1 VIAL SQ SCH ×3 (06:19→21:01)
[2019-07-24] MEDS: hydrALAZINE HCL 25 MG TABLET (FP) PO SCH ×3 (06:19→21:01)
[2019-07-24] MEDS ORDERED: BISACODYL 5 MG TABLET.DR (FP) PO ONE (10:00)
[2019-07-24] MEDS: CARVEDILOL 12.5 MG TABLET (FP) PO SCH ×2 (10:28→21:01)
[2019-07-24] MEDS: POLYETHYLENE GLYCOL 3350 119 GM BTL PO SCH ×2 (10:28→21:01)
[2019-07-24] MEDS: FOLIC ACID 1 MG TABLET (FP) PO SCH (10:28)
[2019-07-24] MEDS: amLODIPine BESYLATE 10 MG TABLET (FP) PO SCH (10:29)
--- NOTE | 2019-07-24 11:25 | PN ---
Progress Note (short form) - Note Progress Note: Comfortable No new issues Vital Signs Temp 98.1 F 07/24/19 10:35 Pulse 68 07/24/19 10:35 Resp 18 07/24/19 10:35 BP 153/70 07/24/19 10:35 Pulse Ox 97 07/23/19 21:00 Intake & Output 07/23/19 07/23/19 07/24/19 11:59 23:59 11:59 Intake Total 150 1620 100 Balance 150 1620 100 Intake: IV 0 Normal Saline - 250 ml @ 0 3000 mls/hr IV PRN PRN Rx #:[id number] Oral 150 1380 100 Oral Supplement 240 Other: Voiding Method Bedside Commode Bedside Commode Bedside Commode # Unmeasured Voids Void 1 1 Bowel Movement No Yes No # Bowel Movements 1 Active Medications Amlodipine Besylate (Norvasc -) 10 mg PO DAILY [facility] Last Admin: 07/24/19 10:29 Dose: 10 mg Carvedilol (Coreg -) 12.5 mg PO BID [facility] Last Admin: 07/24/19 10:28 Dose: 12.5 mg Clonidine HCl (Catapres Tts Patch -) 0.2 mg TD [facility]ULLEN [facility] Last Admin: 07/23/19 18:04 Dose: 0.2 mg Ergocalciferol (Drisdol -) 50,000 unit PO [facility]ULLEN [facility] Last Admin: 07/23/19 18:04 Dose: 50,000 unit Folic Acid (Folic Acid -) 1 mg PO DAILY [facility] Last Admin: 07/24/19 10:28 Dose: 1 mg Hydralazine HCl (Apresoline -) 25 mg PO TID [facility] Last Admin: 07/24/19 06:19 Dose: 25 mg Sodium Chloride (Normal Saline -) 250 mls @ 3,000 mls/hr IV PRN PRN PRN Reason: Hypotension during Dialysis Insulin Aspart (Novolog Vial Sliding Scale -) 1 vial SQ HS [facility]; Protocol Last Admin: 07/23/19 21:46 Dose: Not Given Insulin Aspart (Novolog Vial Sliding Scale -) 1 vial SQ BIDAC [facility]; Protocol Last Admin: 07/24/19 06:19 Dose: Not Given Polyethylene Glycol (Miralax (For Daily Use) -) 17 gm PO BID [facility] Last Admin: 07/24/19 10:28 Dose: 17 gm Polyethylene Glycol/Electrolytes (Golytely Solution -) 4,000 ml PO ONCE ONE Stop: 07/24/19 12:01 CBC, BMP 07/23/19 06:40 07/22/19 11:10 Physical Exam [id number] Lungs decreased Abd- soft, NT no edema PLAN apple core lesion on CT abd weight loss eosinophilia pancytopenia ESRD on HD -- Did not prep properly colonoscopy to be postponed for Wednesday Had discussed with RN and Dr. Fiore stool studies pending i/d following Prep today for colonoscopy tomorrow d/w rn also will follow Problem List - Problems (1) Colonic thickening Code(s): K63.9 - DISEASE OF INTESTINE, UNSPECIFIED (2) Colonoscopy planned Code(s): [id number] - (3) CAD (coronary artery disease) Code(s): I25.10 - ATHSCL HEART DISEASE OF [place] CORONARY ARTERY W/O ANG PCTRS Qualifiers: Coronary Disease-Associated Artery/Lesion type: [place] artery [place] vs. transplanted heart: [place] heart Associated angina: without angina Qualified Code(s): I25.10 - Atherosclerotic heart disease of [place] coronary artery without angina pectoris (4) ESRD (end stage renal disease) Code(s): N18.6 - END STAGE RENAL DISEASE Problem List - Problems (1) Colonic thickening Code(s): K63.9 - DISEASE OF INTESTINE, UNSPECIFIED (2) Colonoscopy planned Code(s): [id number] - (3) CAD (coronary artery disease) Code(s): I25.10 - ATHSCL HEART DISEASE OF [place] CORONARY ARTERY W/O ANG PCTRS Qualifiers: Coronary Disease-Associated Artery/Lesion type: [place] artery [place] vs. transplanted heart: [place] heart Associated angina: without angina Qualified Code(s): I25.10 - Atherosclerotic heart disease of [place] coronary artery without angina pectoris (4) ESRD (end stage renal disease) Code(s): N18.6 - END STAGE RENAL DISEASE
--- NOTE | 2019-07-24 11:55 | PN ---
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 ESRD 2. GI bleed 3. dementia 4. dysphagia 5. anemia 6. CAD 7. hx CABG 8. DM 9. HLD Current Medications Amlodipine Besylate (Norvasc -) 10 mg PO DAILY [facility] Last Admin: 07/24/19 10:29 Dose: 10 mg Carvedilol (Coreg -) 12.5 mg PO BID [facility] Last Admin: 07/24/19 10:28 Dose: 12.5 mg Clonidine HCl (Catapres Tts Patch -) 0.2 mg TD MCMULLEN [facility] Last Admin: 07/23/19 18:04 Dose: 0.2 mg Ergocalciferol (Drisdol -) 50,000 unit PO [facility]ULLEN [facility] Last Admin: 07/23/19 18:04 Dose: 50,000 unit Folic Acid (Folic Acid -) 1 mg PO DAILY [facility] Last Admin: 07/24/19 10:28 Dose: 1 mg Hydralazine HCl (Apresoline -) 25 mg PO TID [facility] Last Admin: 07/24/19 06:19 Dose: 25 mg Sodium Chloride (Normal Saline -) 250 mls @ 3,000 mls/hr IV PRN PRN PRN Reason: Hypotension during Dialysis Insulin Aspart (Novolog Vial Sliding Scale -) 1 vial SQ HS [facility]; Protocol Last Admin: 07/23/19 21:46 Dose: Not Given Insulin Aspart (Novolog Vial Sliding Scale -) 1 vial SQ BIDAC [facility]; Protocol Last Admin: 07/24/19 06:19 Dose: Not Given Polyethylene Glycol (Miralax (For Daily Use) -) 17 gm PO BID [facility] Last Admin: 07/24/19 10:28 Dose: 17 gm Polyethylene Glycol/Electrolytes (Golytely Solution -) 4,000 ml PO ONCE ONE Stop: 07/24/19 12:01 Last Vital Signs Temp Pulse Resp BP Pulse Ox 98.1 F 68 18 153/70 97 07/24/19 10:35 07/24/19 10:35 07/24/19 10:35 07/24/19 10:35 07/23/19 21:00 lungs clear Heart reg Abd soft nontender Ext no edema CBC, BMP 07/23/19 06:40 CBC, BMP 07/22/19 07:45 07/22/19 11:10 IMP- ESRD stable on HD Plan - HD on tomorrow wednesday
[2019-07-24] MEDS ORDERED: PEG 3350/NA SULF BICARB CL/KCL 4000 ML SOLN.RECON PO ONE ×2 (12:00→13:48)
[2019-07-24] MEDS ORDERED: SODIUM CHLORIDE 250 ML IV PRN (12:17)
--- NOTE | 2019-07-24 18:55 | PN ---
Progress Note, Physician History of Present Illness: Pt without new complaints. - Current Medication List Current Medications: Active Medications Amlodipine Besylate (Norvasc -) 10 mg PO DAILY [facility] Last Admin: 07/24/19 10:29 Dose: 10 mg Carvedilol (Coreg -) 12.5 mg PO BID [facility] Last Admin: 07/24/19 10:28 Dose: 12.5 mg Clonidine HCl (Catapres Tts Patch -) 0.2 mg TD [facility]CMULLEN [facility] Last Admin: 07/23/19 18:04 Dose: 0.2 mg Ergocalciferol (Drisdol -) 50,000 unit PO [facility] Last Admin: 07/23/19 18:04 Dose: 50,000 unit Folic Acid (Folic Acid -) 1 mg PO DAILY [facility] Last Admin: 07/24/19 10:28 Dose: 1 mg Hydralazine HCl (Apresoline -) 25 mg PO TID [facility] Last Admin: 07/24/19 15:32 Dose: 25 mg Sodium Chloride (Normal Saline -) 250 mls @ 3,000 mls/hr IV PRN PRN PRN Reason: Hypotension during Dialysis Sodium Chloride (Normal Saline -) 250 mls @ 3,000 mls/hr IV PRN PRN PRN Reason: Hypotension during Dialysis Stop: 07/25/19 12:17 Insulin Aspart (Novolog Vial Sliding Scale -) 1 vial SQ HS [facility]; Protocol Last Admin: 07/23/19 21:46 Dose: Not Given Insulin Aspart (Novolog Vial Sliding Scale -) 1 vial SQ BIDAC [facility]; Protocol Last Admin: 07/24/19 16:35 Dose: 2 units Polyethylene Glycol (Miralax (For Daily Use) -) 17 gm PO BID [facility] Last Admin: 07/24/19 10:28 Dose: 17 gm - Objective Vital Signs: Vital Signs Temperature 98.6 F 07/24/19 18:00 Pulse Rate 64 07/24/19 18:00 Respiratory Rate 20 07/24/19 18:00 Blood Pressure 148/62 07/24/19 18:00 O2 Sat by Pulse Oximetry (%) 95 07/24/19 10:00 Constitutional: Yes: No Distress, Calm Cardiovascular: Yes: Regular Rate and Rhythm Respiratory: Yes: CTA Bilaterally Gastrointestinal: Yes: Normal Bowel Sounds, Soft Genitourinary: Yes: WNL Extremities: Yes: WNL Integumentary: Yes: WNL Neurological: Yes: Alert Labs: CBC, BMP 07/23/19 06:40 07/22/19 11:10 INR, PTT INR 0.93 (0.83-1.09) 07/16/19 15:54 O+P pending Problem List - Problems (1) Colonic thickening Code(s): K63.9 - DISEASE OF INTESTINE, UNSPECIFIED (2) Colonoscopy planned Code(s): [id number] - (3) Altered mental status Code(s): R41.82 - ALTERED MENTAL STATUS, UNSPECIFIED (4) CAD (coronary artery disease) Code(s): I25.10 - ATHSCL HEART DISEASE OF [place] CORONARY ARTERY W/O ANG PCTRS Qualifiers: Coronary Disease-Associated Artery/Lesion type: [place] artery [place] vs. transplanted heart: [place] heart Associated angina: without angina Qualified Code(s): I25.10 - Atherosclerotic heart disease of [place] coronary artery without angina pectoris (5) ESRD (end stage renal disease) Code(s): N18.6 - END STAGE RENAL DISEASE (6) Eosinophilia Code(s): D72.1 - EOSINOPHILIA (7) HTN (hypertension) Code(s): I10 - ESSENTIAL (PRIMARY) HYPERTENSION Assessment/Plan 64 y.o. [place] male presenting for rectal bleed/abnormal CT Colonic lesion GI bleed Eosinophilia CAD s/p CABG ESRD DM HTN GERD -- f/u stool o+p, HIV testing -- for colonoscopy tomorrow -- monitor cbc w diff, repeat bmp -- denies having any complaints
[2019-07-25] MEDS: hydrALAZINE HCL 25 MG TABLET (FP) PO SCH ×3 (06:27→22:46)
[2019-07-25] MEDS: INSULIN SLIDING SCALE (NOVOLOG) 1 VIAL SQ SCH ×3 (06:47→22:44)
[2019-07-25] MEDS: POLYETHYLENE GLYCOL 3350 119 GM BTL PO SCH ×2 (10:00→22:46)
--- NOTE | 2019-07-25 10:46 | PN ---
Progress Note (short form) - Note Progress Note: pt in dialysis no complaints Vital Signs - 24 hr 07/24/19 07/24/19 07/24/19 14:53 18:00 20:52 Temperature 98.1 F 98.6 F 97.6 F Pulse Rate 62 64 64 Respiratory 18 20 20 Rate Blood Pressure 145/68 148/62 145/66 O2 Sat by Pulse Oximetry (%) 07/24/19 07/25/19 07/25/19 21:00 02:00 06:38 Temperature 98.4 F 98.8 F Pulse Rate 60 65 Respiratory 20 18 18 Rate Blood Pressure 140/60 142/62 O2 Sat by Pulse 96 Oximetry (%) 07/25/19 07/25/19 07/25/19 07:50 07:55 08:25 Temperature 98.6 F Pulse Rate 60 60 59 L Respiratory 18 18 18 Rate Blood Pressure 157/71 157/72 164/73 O2 Sat by Pulse Oximetry (%) 07/25/19 07/25/19 07/25/19 08:55 09:25 09:55 Temperature Pulse Rate 61 61 60 Respiratory 18 18 18 Rate Blood Pressure 164/72 163/73 180/75 H O2 Sat by Pulse Oximetry (%) 07/25/19 07/25/19 07/25/19 10:25 10:55 11:25 Temperature Pulse Rate 60 60 61 Respiratory 18 18 18 Rate Blood Pressure 170/74 168/72 182/77 H O2 Sat by Pulse Oximetry (%) 07/25/19 07/25/19 11:38 11:58 Temperature 98.3 F Pulse Rate 61 62 Respiratory 18 18 Rate Blood Pressure 177/78 H 168/65 O2 Sat by Pulse Oximetry (%) Current Medications Generic Name Dose Route Start Last Admin Trade Name Freq PRN Reason Stop Dose Admin Amlodipine Besylate 10 mg 07/17/19 10:00 07/24/19 10:29 Norvasc - PO 10 mg DAILY [facility] Administration Carvedilol 12.5 mg 07/16/19 22:00 07/24/19 21:01 Coreg - PO 12.5 mg BID [facility] Administration Clonidine HCl 0.2 mg 07/16/19 19:00 07/23/19 18:04 Catapres Tts Patch - TD 0.2 mg MCMULLEN [facility] Administration Ergocalciferol 50,000 unit 07/16/19 19:00 07/23/19 18:04 Drisdol - PO 50,000 unit [facility]EN [facility] Administration Folic Acid 1 mg 07/17/19 10:00 07/24/19 10:28 Folic Acid - PO 1 mg DAILY [facility] Administration Hydralazine HCl 25 mg 07/16/19 22:00 07/25/19 06:27 Apresoline - PO Not Given TID [facility] Sodium Chloride 250 mls @ 3,000 mls/hr 07/21/19 09:24 Normal Saline - IV PRN PRN Hypotension during Dialysis Sodium Chloride 250 mls @ 3,000 mls/hr 07/24/19 12:17 Normal Saline - IV 07/25/19 12:17 PRN PRN Hypotension during Dialysis Insulin Aspart 1 vial 07/16/19 22:00 07/24/19 21:01 Novolog Vial Sliding Scale - SQ Not Given HS [facility] Protocol Insulin Aspart 1 vial 07/18/19 16:30 07/25/19 06:47 Novolog Vial Sliding Scale - SQ Not Given BIDAC [facility] Protocol Polyethylene Glycol 17 gm 07/22/19 10:00 07/24/19 21:01 Miralax (For Daily Use) - PO 17 gm BID [facility] Administration Laboratory Results - last 24 hr 07/24/19 07/24/19 07/25/19 16:31 21:00 06:45 WBC RBC Hgb Hct MCV MCH MCHC RDW Plt Count MPV Sodium Potassium Chloride Carbon Dioxide Anion Gap BUN Creatinine Est GFR (CKD-EPI)AfAm Est GFR (CKD-EPI)NonAf POC Glucometer 163 194 86 Random Glucose Calcium 07/25/19 07/25/19 10:50 10:50 WBC 3.1 L RBC 4.16 Hgb 12.8 Hct 39.1 MCV 93.8 MCH 30.8 MCHC 32.8 RDW 15.7 Plt Count 133 L MPV 9.4 Sodium 139 Potassium 3.1 L Chloride 99 Carbon Dioxide 33 H Anion Gap 8 BUN 13.4 Creatinine 2.0 H Est GFR (CKD-EPI)AfAm 40.26 Est GFR (CKD-EPI)NonAf 34.74 POC Glucometer Random Glucose 83 Calcium 9.4 [id number] Lungs decreased Abd- soft, NT no edema PLAN apple core lesion on CT abd weight loss eosinophilia pancytopenia ESRD on HD colonoscopy today -- continue with meds -- cbc stable Problem List - Problems (1) Colonic thickening Code(s): K63.9 - DISEASE OF INTESTINE, UNSPECIFIED (2) CAD (coronary artery disease) Code(s): I25.10 - ATHSCL HEART DISEASE OF [place] CORONARY ARTERY W/O ANG PCTRS Qualifiers: Coronary Disease-Associated Artery/Lesion type: [place] artery [place] vs. transplanted heart: [place] heart Associated angina: without angina Qualified Code(s): I25.10 - Atherosclerotic heart disease of [place] coronary artery without angina pectoris (3) ESRD (end stage renal disease) Code(s): N18.6 - END STAGE RENAL DISEASE (4) HTN (hypertension) Code(s): I10 - ESSENTIAL (PRIMARY) HYPERTENSION (5) Hypertensive cardiomyopathy Code(s): I11.9 - HYPERTENSIVE HEART DISEASE WITHOUT HEART FAILURE; I43 - CARDIOMYOPATHY IN DISEASES CLASSIFIED ELSEWHERE Qualifiers: Heart failure presence: with heart failure Qualified Code(s): I11.0 - Hypertensive heart disease with heart failure; I43 - Cardiomyopathy in diseases classified elsewhere (6) Weight loss Code(s): R63.4 - ABNORMAL WEIGHT LOSS
[2019-07-25 11:16] LABS: HEMATOCRIT 39.1 % (35.4-49); HEMOGLOBIN 12.8 GM/dL (11.7-16.9); MCH 30.8 pg (25.7-33.7); MCHC 32.8 g/dl (32.0-35.9); MEAN CELL VOLUME 93.8 fl (80-96); MEAN PLT VOLUME 9.4 fl (7.5-11.1); PLATELET COUNT 133 K/MM3 (134-434); RBC 4.16 M/mm3 (4.00-5.60); RDW 15.7 % (11.9-15.9); WHITE BLOOD COUNT 3.1 K/mm3 (4.0-10.0)
--- NOTE | 2019-07-25 11:41 | PN ---
Progress Note, Physician History of Present Illness: patient stable no new issues for colonoscopy - Current Medication List Current Medications: Active Medications Amlodipine Besylate (Norvasc -) 10 mg PO DAILY [facility] Last Admin: 07/24/19 10:29 Dose: 10 mg Carvedilol (Coreg -) 12.5 mg PO BID [facility] Last Admin: 07/24/19 21:01 Dose: 12.5 mg Clonidine HCl (Catapres Tts Patch -) 0.2 mg TD MCMULLEN [facility] Last Admin: 07/23/19 18:04 Dose: 0.2 mg Ergocalciferol (Drisdol -) 50,000 unit PO [facility]CMULLEN [facility] Last Admin: 07/23/19 18:04 Dose: 50,000 unit Folic Acid (Folic Acid -) 1 mg PO DAILY [facility] Last Admin: 07/24/19 10:28 Dose: 1 mg Hydralazine HCl (Apresoline -) 25 mg PO TID [facility] Last Admin: 07/25/19 06:27 Dose: Not Given Sodium Chloride (Normal Saline -) 250 mls @ 3,000 mls/hr IV PRN PRN PRN Reason: Hypotension during Dialysis Sodium Chloride (Normal Saline -) 250 mls @ 3,000 mls/hr IV PRN PRN PRN Reason: Hypotension during Dialysis Stop: 07/25/19 12:17 Insulin Aspart (Novolog Vial Sliding Scale -) 1 vial SQ HS [facility]; Protocol Last Admin: 07/24/19 21:01 Dose: Not Given Insulin Aspart (Novolog Vial Sliding Scale -) 1 vial SQ BIDAC [facility]; Protocol Last Admin: 07/25/19 06:47 Dose: Not Given Polyethylene Glycol (Miralax (For Daily Use) -) 17 gm PO BID [facility] Last Admin: 07/24/19 21:01 Dose: 17 gm - Objective Vital Signs: Vital Signs Temperature 98.6 F 07/25/19 07:50 Pulse Rate 61 07/25/19 11:38 Respiratory Rate 18 07/25/19 11:38 Blood Pressure 177/78 H 07/25/19 11:38 O2 Sat by Pulse Oximetry (%) 96 07/24/19 21:00 Constitutional: Yes: No Distress, Calm Cardiovascular: Yes: S1, S2 Respiratory: Yes: Regular, CTA Bilaterally Gastrointestinal: Yes: Normal Bowel Sounds, Soft Musculoskeletal: Yes: WNL Extremities: Yes: Other Neurological: Yes: Alert, Oriented Psychiatric: Yes: Other Labs: CBC, BMP 07/25/19 10:50 INR, PTT INR 0.93 (0.83-1.09) 07/16/19 15:54 Assessment/Plan 1. ESRD 2. GI bleed 3. dementia 4. dysphagia 5. anemia 6. CAD 7. hx CABG 8. DM 9. HLD 10 eosinophilia plan plan for colonoscopy please send stool studies rest continue current mgmt will se what stool studies shows
[2019-07-25 11:42] LABS: BLOOD UREA NITROGEN 13.4 mg/dL (7-18); CALCIUM 9.4 mg/dL (8.5-10.1); POTASSIUM 3.1 mmol/L (3.5-5.1)
--- NOTE | 2019-07-25 14:57 | PN ---
Progress Note, Physician History of Present Illness: Pt seen and examined. He tolerated HD. - Current Medication List Current Medications: Active Medications Amlodipine Besylate (Norvasc -) 10 mg PO DAILY [facility] Last Admin: 07/24/19 10:29 Dose: 10 mg Carvedilol (Coreg -) 12.5 mg PO BID [facility] Last Admin: 07/24/19 21:01 Dose: 12.5 mg Clonidine HCl (Catapres Tts Patch -) 0.2 mg TD MCMULLEN [facility] Last Admin: 07/23/19 18:04 Dose: 0.2 mg Ergocalciferol (Drisdol -) 50,000 unit PO [facility]CMULLEN [facility] Last Admin: 07/23/19 18:04 Dose: 50,000 unit Folic Acid (Folic Acid -) 1 mg PO DAILY [facility] Last Admin: 07/24/19 10:28 Dose: 1 mg Hydralazine HCl (Apresoline -) 25 mg PO TID [facility] Last Admin: 07/25/19 06:27 Dose: Not Given Sodium Chloride (Normal Saline -) 250 mls @ 3,000 mls/hr IV PRN PRN PRN Reason: Hypotension during Dialysis Sodium Chloride (Normal Saline -) 250 mls @ 3,000 mls/hr IV PRN PRN PRN Reason: Hypotension during Dialysis Stop: 07/25/19 12:17 Insulin Aspart (Novolog Vial Sliding Scale -) 1 vial SQ HS [facility]; Protocol Last Admin: 07/24/19 21:01 Dose: Not Given Insulin Aspart (Novolog Vial Sliding Scale -) 1 vial SQ BIDAC [facility]; Protocol Last Admin: 07/25/19 06:47 Dose: Not Given Polyethylene Glycol (Miralax (For Daily Use) -) 17 gm PO BID [facility] Last Admin: 07/24/19 21:01 Dose: 17 gm - Objective Vital Signs: Vital Signs Temperature 97.5 F L 07/25/19 14:44 Pulse Rate 56 L 07/25/19 14:44 Respiratory Rate 20 07/25/19 14:44 Blood Pressure 160/62 07/25/19 14:44 O2 Sat by Pulse Oximetry (%) 100 07/25/19 14:44 Constitutional: Yes: Calm Eyes: Yes: Conjunctiva Clear HENT: Yes: Atraumatic Neck: Yes: Supple Cardiovascular: Yes: S1, S2 Respiratory: Yes: CTA Bilaterally Gastrointestinal: Yes: Soft Genitourinary: Yes: WNL Musculoskeletal: Yes: WNL Edema: No Integumentary: Yes: WNL Neurological: Yes: Confusion Labs: CBC, BMP 07/25/19 10:50 07/25/19 10:50 INR, PTT INR 0.93 (0.83-1.09) 07/16/19 15:54 Problem List - Problems (1) ESRD (end stage renal disease) Code(s): N18.6 - END STAGE RENAL DISEASE Assessment/Plan Current Medications Generic Name Dose Route Start Last Admin Trade Name Freq PRN Reason Stop Dose Admin Amlodipine Besylate 10 mg 07/17/19 10:00 07/24/19 10:29 Norvasc - PO 10 mg DAILY [facility] Administration Carvedilol 12.5 mg 07/16/19 22:00 07/24/19 21:01 Coreg - PO 12.5 mg BID [facility] Administration Clonidine HCl 0.2 mg 07/16/19 19:00 07/23/19 18:04 Catapres Tts Patch - TD 0.2 mg MCMULLEN [facility] Administration Ergocalciferol 50,000 unit 07/16/19 19:00 07/23/19 18:04 Drisdol - PO 50,000 unit [facility]ULLEN [facility] Administration Folic Acid 1 mg 07/17/19 10:00 07/24/19 10:28 Folic Acid - PO 1 mg DAILY BRAD Administration Hydralazine HCl 25 mg 07/16/19 22:00 07/25/19 06:27 Apresoline - PO Not Given TID BRAD Sodium Chloride 250 mls @ 3,000 mls/hr 07/21/19 09:24 Normal Saline - IV PRN PRN Hypotension during Dialysis Sodium Chloride 250 mls @ 3,000 mls/hr 07/24/19 12:17 Normal Saline - IV 07/25/19 12:17 PRN PRN Hypotension during Dialysis Insulin Aspart 1 vial 07/16/19 22:00 07/24/19 21:01 Novolog Vial Sliding Scale - SQ Not Given HS BRAD Protocol Insulin Aspart 1 vial 07/18/19 16:30 07/25/19 06:47 Novolog Vial Sliding Scale - SQ Not Given BIDAC [facility] Protocol Polyethylene Glycol 17 gm 07/22/19 10:00 07/24/19 21:01 Miralax (For Daily Use) - PO 17 gm BID BRAD Administration Impression 1. ESRD 2. GI bleed 3. dementia 4. dysphagia 5. anemia 6. CAD 7. hx CABG 8. DM 9. HLD Plan - HD today - follow endoscopy - monitor hg - 2 k bath f180 3:30, abf [address] Dr Siu
--- NOTE | 2019-07-25 15:05 | PN ---
Progress Note (short form) - Note Progress Note: Colonoscopy complete. Report left in procedural section of physical chart and to be scanned into [facility]
[2019-07-25] MEDS: amLODIPine BESYLATE 10 MG TABLET (FP) PO SCH (15:48)
[2019-07-25] MEDS: CARVEDILOL 12.5 MG TABLET (FP) PO SCH ×2 (15:48→22:46)
[2019-07-25] MEDS: FOLIC ACID 1 MG TABLET (FP) PO SCH (15:48)
[2019-07-25] MEDS ORDERED: POTASSIUM CHLORIDE TABS 20 MEQ TABLET.ER (FP) PO ONE (18:30)
--- NOTE | 2019-07-25 18:34 | PN ---
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 To have ID follow up Await path of polyps.
[2019-07-26] MEDS: INSULIN SLIDING SCALE (NOVOLOG) 1 VIAL SQ SCH (06:10)
[2019-07-26] MEDS: hydrALAZINE HCL 25 MG TABLET (FP) PO SCH ×2 (06:10→14:11)
--- NOTE | 2019-07-26 09:14 | PN ---
Progress Note, Physician History of Present Illness: patient stable no new issues - Current Medication List Current Medications: Active Medications Amlodipine Besylate (Norvasc -) 10 mg PO DAILY [facility] Last Admin: 07/25/19 15:48 Dose: 10 mg Carvedilol (Coreg -) 12.5 mg PO BID [facility] Last Admin: 07/25/19 22:46 Dose: 12.5 mg Clonidine HCl (Catapres Tts Patch -) 0.2 mg TD [facility] Last Admin: 07/23/19 18:04 Dose: 0.2 mg Ergocalciferol (Drisdol -) 50,000 unit PO [facility] Last Admin: 07/23/19 18:04 Dose: 50,000 unit Folic Acid (Folic Acid -) 1 mg PO DAILY [facility] Last Admin: 07/25/19 15:48 Dose: 1 mg Hydralazine HCl (Apresoline -) 25 mg PO TID [facility] Last Admin: 07/26/19 06:10 Dose: 25 mg Sodium Chloride (Normal Saline -) 250 mls @ 3,000 mls/hr IV PRN PRN PRN Reason: Hypotension during Dialysis Sodium Chloride (Normal Saline -) 250 mls @ 3,000 mls/hr IV PRN PRN PRN Reason: Hypotension during Dialysis Stop: 07/25/19 12:17 Insulin Aspart (Novolog Vial Sliding Scale -) 1 vial SQ HS [facility]; Protocol Last Admin: 07/25/19 22:44 Dose: Not Given Insulin Aspart (Novolog Vial Sliding Scale -) 1 vial SQ BIDAC [facility]; Protocol Last Admin: 07/26/19 06:10 Dose: Not Given Polyethylene Glycol (Miralax (For Daily Use) -) 17 gm PO BID [facility] Last Admin: 07/25/19 22:46 Dose: 17 gm - Objective Vital Signs: Vital Signs Temperature 98.3 F 07/26/19 05:39 Pulse Rate 64 07/26/19 05:39 Respiratory Rate 18 07/26/19 05:39 Blood Pressure 144/61 07/26/19 05:39 O2 Sat by Pulse Oximetry (%) 100 07/25/19 21:00 Constitutional: Yes: No Distress, Calm Cardiovascular: Yes: S1, S2 Respiratory: Yes: Regular, CTA Bilaterally Gastrointestinal: Yes: Normal Bowel Sounds, Soft Musculoskeletal: Yes: WNL Extremities: Yes: WNL Neurological: Yes: Alert Psychiatric: Yes: Alert Labs: CBC, BMP 07/25/19 10:50 07/25/19 10:50 INR, PTT INR 0.93 (0.83-1.09) 07/16/19 15:54 Assessment/Plan 1. ESRD 2. GI bleed 3. dementia 4. dysphagia 5. anemia 6. CAD 7. hx CABG 8. DM 9. HLD 10 eosinophilia plan will give patient one dose of ivermectin rest continue current mgmt
[2019-07-26] MEDS: FOLIC ACID 1 MG TABLET (FP) PO SCH (09:31)
[2019-07-26] MEDS: amLODIPine BESYLATE 10 MG TABLET (FP) PO SCH (09:31)
[2019-07-26] MEDS: CARVEDILOL 12.5 MG TABLET (FP) PO SCH (09:31)
[2019-07-26] MEDS: POLYETHYLENE GLYCOL 3350 119 GM BTL PO SCH (09:33)
[2019-07-26 09:36] VITALS: PULSE 68
--- NOTE | 2019-07-26 11:06 | DS ---
Physical Examination Vital Signs: Vital Signs Temperature 98.5 F 07/26/19 09:25 Pulse Rate 68 07/26/19 09:25 Respiratory Rate 18 07/26/19 09:25 Blood Pressure 139/59 L 07/26/19 09:25 O2 Sat by Pulse Oximetry (%) 100 07/25/19 21:00 Constitutional: Yes: No Distress, Calm Cardiovascular: Yes: Regular Rate and Rhythm Respiratory: Yes: CTA Bilaterally Gastrointestinal: Yes: Normal Bowel Sounds, Soft. No: Tenderness Edema: No Labs: CBC, BMP 07/25/19 10:50 07/25/19 10:50 Discharge Summary Reason For Visit: COLONOSCOPY PLANNED Current Active Problems Colonic thickening (Acute) Colonoscopy planned (Acute) Weight loss (Acute) Hospital Course: Admitted for weight loss, apple core lesion on CT abdomen Found to have eosinophilia-- ID and Hematology consulted-- has strongyloides positive Consent for colonoscopy obtained fram daughter-- he was scheduled for colonoscopy 2 days ago but had poor prep. He finally underwent colonoscopy on 07/25/19-- multiple polyps largest at splenic flexure he has neutropenia-- for flow cytometry received ivermectin today He will need another dose tomorrow per ID He is stable for dc to [place] follow up with DR Olivo hematology for flow cytometry Follow up with GI for pathology results repeat CBC with diff Condition: Stable - Instructions Referrals: Maddie Davenport MD [Primary Care Provider] - Disposition: [facility] - Home Medications Comprehensive Discharge Medication List: Ambulatory Orders Acetaminophen [Tylenol] 650 mg PO Q6H PRN 07/19/18 Amlodipine Besylate [Norvasc -] 10 mg PO DAILY 07/19/18 Atorvastatin Ca [Lipitor] 10 mg PO HS 07/19/18 Calcium Acetate [Phoslo -] 667 mg PO TIDCM 07/19/18 Clonidine Patch [Catapres Tts Patch -] 0.2 mg TD [facility] 07/19/18 Ergocalciferol [Vitamin D2] 50,000 unit PO [facility] 07/19/18 Metoprolol Tartrate [Lopressor -] 50 mg PO BID 07/19/18 hydrALAZINE HCL [Apresoline -] 50 mg PO TID 07/19/18 Gel Dressing [Dermasyn] 85 gm TP BID 09/23/18 Insulin Aspart [Novolog Flexpen] 100 unit SQ ASDIR 09/23/18 Heparin - 5,000 unit SQ BID vial 09/26/18 Vancomycin Oral Solution 125 mg PO Q6HPO #48 ml MDD 4 09/26/18 Aspirin [Aspirin EC] 81 mg PO DAILY 07/17/19 Carvedilol [Coreg -] 25 mg PO BID 07/17/19 Folic Acid 1 mg PO DAILY 07/17/19 Lactobacillus Acidophilus [Bacid -] 1 cap PO DAILY 07/17/19 Lisinopril 10 mg PO DAILY 07/17/19 Mirtazapine 30 mg PO HS 07/17/19 Nifedipine [Procardia Xl] 30 mg PO DAILY 07/17/19 Nifedipine [Procardia Xl] 30 mg PO DAILY 07/17/19 Sennosides [Senokot] 8.6 mg PO DAILY 07/17/19 Vitamin B Comp W-C [Nephro-Alejandro -] 0.8 mg PO DAILY 07/17/19 Vitamin B Comp W-C [Nephro-Alejandro -] 0.8 tablet PO DAILY 07/17/19
[2019-07-26] MEDS ORDERED: IVERMECTIN 3 MG TABLET PO ONE (11:30)
--- NOTE | 2019-07-26 11:36 | PN ---
Progress Note, Physician History of Present Illness: Pt seen and examined at bedside. He is awake and appears comfortable. He denies shortness of breath. - Current Medication List Current Medications: Active Medications Amlodipine Besylate (Norvasc -) 10 mg PO DAILY [facility] Last Admin: 07/26/19 09:31 Dose: 10 mg Carvedilol (Coreg -) 12.5 mg PO BID [facility] Last Admin: 07/26/19 09:31 Dose: 12.5 mg Clonidine HCl (Catapres Tts Patch -) 0.2 mg TD [facility] Last Admin: 07/23/19 18:04 Dose: 0.2 mg Ergocalciferol (Drisdol -) 50,000 unit PO [facility] Last Admin: 07/23/19 18:04 Dose: 50,000 unit Folic Acid (Folic Acid -) 1 mg PO DAILY [facility] Last Admin: 07/26/19 09:31 Dose: 1 mg Hydralazine HCl (Apresoline -) 25 mg PO TID [facility] Last Admin: 07/26/19 06:10 Dose: 25 mg Sodium Chloride (Normal Saline -) 250 mls @ 3,000 mls/hr IV PRN PRN PRN Reason: Hypotension during Dialysis Sodium Chloride (Normal Saline -) 250 mls @ 3,000 mls/hr IV PRN PRN PRN Reason: Hypotension during Dialysis Stop: 07/25/19 12:17 Insulin Aspart (Novolog Vial Sliding Scale -) 1 vial SQ HS [facility]; Protocol Last Admin: 07/25/19 22:44 Dose: Not Given Insulin Aspart (Novolog Vial Sliding Scale -) 1 vial SQ BIDAC [facility]; Protocol Last Admin: 07/26/19 06:10 Dose: Not Given Polyethylene Glycol (Miralax (For Daily Use) -) 17 gm PO BID [facility] Last Admin: 07/26/19 09:33 Dose: 17 gm - Objective Vital Signs: Vital Signs Temperature 98.5 F 07/26/19 09:25 Pulse Rate 68 07/26/19 09:25 Respiratory Rate 18 07/26/19 09:25 Blood Pressure 139/59 L 07/26/19 09:25 O2 Sat by Pulse Oximetry (%) 100 07/25/19 21:00 Constitutional: Yes: Calm Eyes: Yes: Conjunctiva Clear HENT: Yes: Atraumatic Neck: Yes: Supple Cardiovascular: Yes: S1, S2 Respiratory: Yes: CTA Bilaterally Gastrointestinal: Yes: Soft Genitourinary: Yes: WNL Musculoskeletal: Yes: WNL Edema: No Neurological: Yes: Confusion Labs: CBC, BMP 07/25/19 10:50 07/25/19 10:50 INR, PTT INR 0.93 (0.83-1.09) 07/16/19 15:54 Problem List - Problems (1) ESRD (end stage renal disease) Code(s): N18.6 - END STAGE RENAL DISEASE Assessment/Plan Current Medications Generic Name Dose Route Start Last Admin Trade Name Freq PRN Reason Stop Dose Admin Amlodipine Besylate 10 mg 07/17/19 10:00 07/26/19 09:31 Norvasc - PO 10 mg DAILY [facility] Administration Carvedilol 12.5 mg 07/16/19 22:00 07/26/19 09:31 Coreg - PO 12.5 mg BID [facility] Administration Clonidine HCl 0.2 mg 07/16/19 19:00 07/23/19 18:04 Catapres Tts Patch - TD 0.2 mg [facility] Administration Ergocalciferol 50,000 unit 07/16/19 19:00 07/23/19 18:04 Drisdol - PO 50,000 unit [facility] Administration Folic Acid 1 mg 07/17/19 10:00 07/26/19 09:31 Folic Acid - PO 1 mg DAILY [facility] Administration Hydralazine HCl 25 mg 07/16/19 22:00 07/26/19 06:10 Apresoline - PO 25 mg TID [facility] Administration Sodium Chloride 250 mls @ 3,000 mls/hr 07/21/19 09:24 Normal Saline - IV PRN PRN Hypotension during Dialysis Sodium Chloride 250 mls @ 3,000 mls/hr 07/24/19 12:17 Normal Saline - IV 07/25/19 12:17 PRN PRN Hypotension during Dialysis Insulin Aspart 1 vial 07/16/19 22:00 07/25/19 22:44 Novolog Vial Sliding Scale - SQ Not Given HS [facility] Protocol Insulin Aspart 1 vial 07/18/19 16:30 07/26/19 06:10 Novolog Vial Sliding Scale - SQ Not Given BIDAC [facility] Protocol Polyethylene Glycol 17 gm 07/22/19 10:00 07/26/19 09:33 Miralax (For Daily Use) - PO 17 gm BID [facility] Administration Impression 1. ESRD 2. GI bleed 3. dementia 4. dysphagia 5. anemia 6. CAD 7. hx CABG 8. DM 9. HLD Plan - pt has hd set up as outpt - pt had colonoscopy, follow pathology - monitor hg - 2 k bath f180 3:30, abf 450 Dr Siu
[2019-07-26 13:58] VITALS: BP 145/59; TEMP 99.2
--- NOTE | 2019-07-27 17:40 | PATH ---
Surgical Pathology Report Patient Name: GRAHAM LINDER [facility]. Rec. #: [id number] /Age/Gender: 1955 (Age: 64) / M Account: [id number] Location: [address] [place] [address] Taken: 07/25/2019 Received: 07/26/2019 Reported: 07/27/2019 Physicians: Rachel Garces M.D. Specimen(s) Received A: POLYP OF SPLENIC FLEXURE FLAT SNARE B: POLYP DISTAL TRANSVERSE COLON HOY SNARE C: POLYP CECUM HOT SNARE AND FORCEPTS D: BX POLYP DESCENDING COLON E: BX POLYPS SIGMOID COLON F: POLYP FROM RECTO SIGMOID 15CM G: BX SMALL RECTAL SIGMOID POLYPS Clinical History Abnormal CAT scan Final Diagnosis A. SPLENIC FLEXURE POLYP, POLYPECTOMY: TUBULAR ADENOMA. B. DISTAL TRANSVERSE COLON POLYP, POLYPECTOMY: TUBULAR ADENOMA. C. CECAL POLYPS, POLYPECTOMY: TUBULAR ADENOMA, FRAGMENTS. D. DESCENDING COLON POLYP, POLYPECTOMY: TUBULAR ADENOMA. E. SIGMOID COLON POLYPS, POLYPECTOMY: HYPERPLASTIC POLYP, TWO FRAGMENTS. F. POLYP FROM RECTOSIGMOID 15CM, POLYPECTOMY: TUBULAR ADENOMA. G. SMALL RECTOSIGMOID POLYPS, POLYPECTOMY: HYPERPLASTIC POLYP, ONE FRAGMENT. Electronically Signed Naldo Snell M.D. Gross Description A. Received in formalin, labeled "splenic flexure polyp" are 5 verma, irregular portions of soft tissue measuring 0.3 to 0.6 cm. in greatest dimension. The specimens are submitted in toto in one cassette. B. Received in formalin, labeled "distal transverse colon polyp" are 5 verma, irregular portion of soft tissue measuring 0.2 to 0.3 cm. in greatest dimension. The specimens are submitted in toto in one cassette. C. Received in formalin, labeled "cecum polyps" are 2 verma, irregular portions of soft tissue measuring 0.2 and 0.6 cm. in greatest dimension. The specimens are submitted in toto in one cassette. D. Received in formalin, labeled "descending colon polyp" is a verma, irregular portion of soft tissue measuring 0.3 cm. in greatest dimension. The specimens are submitted in toto in one cassette. E. Received in formalin, labeled "sigmoid colon polyps" are 2 verma, irregular portion of soft tissue measuring 0.2 and 0.3 cm. in greatest dimension. The specimens are submitted in toto in one cassette. F. Received in formalin, labeled "rectosigmoid polyp 15 cm" is a verma, irregular portion of soft tissue measuring 0.9 cm. in greatest dimension. The specimens are submitted in toto in one cassette after bisected. G. Received in formalin, labeled "small rectal sigmoid polyps" is a verma, irregular portions of soft tissue measuring 0.2 cm. in greatest dimension. The specimens are submitted in toto in one cassette. VIKKI/07/26/2019 collin07/26/2019
== END 2019-07-26 15:39 | DRG 393 ==
LOC: JER 14:43 → JERBED 17:24 → J5S 22:25
PROVIDERS: ADMIT Internal Medicine; ATTEND Internal Medicine
PROC: 5A1D70Z Performance of Urinary Filtration, Intermittent, Less than 6 Hours Per Day (ICD-10-PCS; principal; 2019-07-18)
PROC: 0DBH8ZX Excision of Cecum, Via Natural or Artificial Opening Endoscopic, Diagnostic (ICD-10-PCS; 2019-07-25)
PROC: 0DBL8ZX Excision of Transverse Colon, Via Natural or Artificial Opening Endoscopic, Diagnostic (ICD-10-PCS; 2019-07-25)
PROC: 0DBN8ZX Excision of Sigmoid Colon, Via Natural or Artificial Opening Endoscopic, Diagnostic (ICD-10-PCS; 2019-07-25)
PROC: 0DBP8ZX Excision of Rectum, Via Natural or Artificial Opening Endoscopic, Diagnostic (ICD-10-PCS; 2019-07-25)
PROC: 0W3P8ZZ Control Bleeding in Gastrointestinal Tract, Via Natural or Artificial Opening Endoscopic (ICD-10-PCS; 2019-07-25)
DX: K63.9 Disease of intestine, unspecified (principal); N18.6 End stage renal disease; I12.0 Hypertensive chronic kidney disease with stage 5 chronic kidney disease or end stage renal disease; E87.1 Hypo-osmolality and hyponatremia; R64 Cachexia; D61.818 Other pancytopenia; B78.0 Intestinal strongyloidiasis; D72.1 Eosinophilia; Z68.20 Body mass index [BMI] 20.0-20.9, adult; E11.22 Type 2 diabetes mellitus with diabetic chronic kidney disease; Z99.2 Dependence on renal dialysis; D12.7 Benign neoplasm of rectosigmoid junction; D12.0 Benign neoplasm of cecum; D12.5 Benign neoplasm of sigmoid colon; D12.3 Benign neoplasm of transverse colon; K64.8 Other hemorrhoids; R13.10 Dysphagia, unspecified; D64.9 Anemia, unspecified; E78.00 Pure hypercholesterolemia, unspecified; I25.10 Atherosclerotic heart disease of native coronary artery without angina pectoris; Z95.1 Presence of aortocoronary bypass graft; Z79.4 Long term (current) use of insulin; F03.90 Unspecified dementia, unspecified severity, without behavioral disturbance, psychotic disturbance, mood disturbance, and anxiety; Z86.718 Personal history of other venous thrombosis and embolism
CPT/HCPCS: 36415; 71045-TC-FY; 76700-TC; 80048; 80053; 82272; 82565; 82607; 82746; 82962; 83036; 83690; 84443; 84484; 84520; 85025; 85027; 85610; 85730; 86038; 86682; 86803; 87177; 87209; 87340; 87389; 88305-TC; 93005; 93010; 99284-25; J7030

== ENCOUNTER 2019-07-27 08:46 | Inpatient (IN) | payer OTHER ==
--- NOTE | 2019-07-27 10:18 | PDOC ---
History of Present Illness - General Chief Complaint: Rectal Bleed Stated Complaint: GI Bleed Time Seen by Provider: 07/27/19 09:28 Past History - Past Medical History Allergies/Adverse Reactions: Allergies Allergy/AdvReac Type Severity Reaction Status Date / Time No Known Allergies Allergy Verified 07/27/19 10:09 Home Medications: Ambulatory Orders Acetaminophen [Tylenol] 650 mg PO Q6H PRN 07/19/18 Amlodipine Besylate [Norvasc -] 10 mg PO DAILY 07/19/18 Atorvastatin Ca [Lipitor] 10 mg PO HS 07/19/18 Calcium Acetate [Phoslo -] 667 mg PO TIDCM 07/19/18 Clonidine Patch [Catapres Tts Patch -] 0.2 mg TD [facility] 07/19/18 Ergocalciferol [Vitamin D2] 50,000 unit PO [facility] 07/19/18 Insulin Aspart [Novolog Flexpen] 100 unit SQ ASDIR 09/23/18 Carvedilol [Coreg -] 25 mg PO BID 07/17/19 Folic Acid 1 mg PO DAILY 07/17/19 Lactobacillus Acidophilus [Bacid -] 1 cap PO DAILY 07/17/19 Mirtazapine 30 mg PO HS 07/17/19 Sennosides [Senokot] 8.6 mg PO DAILY 07/17/19 Vitamin B Comp W-C [Nephro-Alejandro -] 0.8 mg PO DAILY 07/17/19 Ivermectin 12 mg PO ONCE #1 tablet 07/26/19 Pantoprazole Sodium [Protonix] 40 mg PO DAILY #60 tablet. 07/26/19 Anemia: Yes Cardiac Disorders: Yes (CAD, DVT right leg, Angina) COPD: No CHF: No DVT: Yes Dementia: Yes Diabetes: Yes Dialysis: Yes (tue- thur- sat right chest dialysis catheter) GI Disorders: Yes (GERD, Dysphagia) HTN: Yes Hypercholesterolemia: Yes - Surgical History Cardiac Surgery: Yes (CABG) Cholecystectomy: No GI Surgery: No - Immunization History Td Vaccination: No TDAP Vaccination: No Immunization Up to Date: Yes - Suicide/Smoking/Psychosocial Hx Smoking History: Unknown if ever smoked Have you smoked in the past 12 months: No Number of Cigarettes Smoked Daily: 0 Cigars Per Day: 0 Information on smoking cessation initiated: No Hx Alcohol Use: No Drug/Substance Use Hx: No Substance Use Type: None Hx Substance Use Treatment: No *Physical Exam - Vital Signs Last Vital Signs Temp Pulse Resp BP Pulse Ox 98.4 F 62 19 130/57 L 100 07/27/19 09:23 07/27/19 08:48 07/27/19 09:23 07/27/19 09:23 07/27/19 09:23 ED Treatment Course - LABORATORY CBC & Chemistry Diagram: 07/27/19 10:30 07/27/19 10:14 - RADIOLOGY Radiology Studies Ordered: Category Date Time Status CHEST X-RAY PORTABLE* [RAD] Stat Radiology 07/27/19 10:15 Ordered *DC/Admit/Observation/Transfer - Referrals Referrals: Maddie Davenport MD [Primary Care Provider] - - Patient Instructions - Post Discharge Activity
[2019-07-27 10:56] LABS: BASO % 0.3 % (0-2.0); EOS % 13.8 % (0-4.5); HEMATOCRIT 30.5 % (35.4-49); HEMOGLOBIN 10.1 GM/dL (11.7-16.9); LYMPH % 28.7 % (8-40); MCH 30.9 pg (25.7-33.7); MCHC 33.1 g/dl (32.0-35.9); MEAN CELL VOLUME 93.2 fl (80-96); MEAN PLT VOLUME 9.6 fl (7.5-11.1); MONO % 9.7 % (3.8-10.2); NEUT % 47.5 % (42.8-82.8); PLATELET COUNT 139 K/MM3 (134-434); RBC 3.28 M/mm3 (4.00-5.60); RDW 15.6 % (11.9-15.9); WHITE BLOOD COUNT 4.4 K/mm3 (4.0-10.0)
[2019-07-27 11:11] LABS: PROTHROMBIN TIME (PATIENT) 11.8 SEC (9.7-13.0)
[2019-07-27 11:13] LABS: ACTIVATED PTT 33.1 SECONDS (25.2-36.5)
[2019-07-27 11:27] LABS: ALBUMIN 3.5 g/dl (3.4-5.0); BILIRUBIN,TOTAL 0.6 mg/dL (0.2-1); BLOOD UREA NITROGEN 54.2 mg/dL (7-18); CALCIUM 9.4 mg/dL (8.5-10.1); CREATININE 5.3 mg/dL (0.55-1.3); POTASSIUM 4.9 mmol/L (3.5-5.1); TOT PROT 6.8 g/dl (6.4-8.2)
--- NOTE | 2019-07-27 11:52 | HP ---
Admitting History and Physical - Primary Care Physician PCP: Maddie Davenport - Admission Chief Complaint: GI bleed History of Present Illness: 64 yrs old male sent from [facility] for passing blood clots per rectum yesterday He had underwent colonocopy on 07/25- removed multiple polyps, clipping done. No abdominal pain No hypotensive episode Pt examined by me in ER currently having blood oozing per rectum History Source: Patient, Medical Record Limitations to Obtaining History: Poor Historian - Past Medical History Cardiovascular: Yes: CAD (s/p CABG), HTN, Hyperlipdemia Gastrointestinal: Yes: Constipation Renal/: Yes: Renal Failure, Hemodialysis Heme/Onc: Yes: Anemia - Past Surgical History Past Surgical History: Yes: CABG - Smoking History Smoking history: Unknown if ever smoked Have you smoked in the past 12 months: No Aproximately how many cigarettes per day: 0 - Alcohol/Substance Use Hx Alcohol Use: No - Social History ADL: Support Services Home Medications - Allergies Allergies/Adverse Reactions: Allergies Allergy/AdvReac Type Severity Reaction Status Date / Time No Known Allergies Allergy Verified 07/27/19 10:09 - Home Medications Home Medications: Ambulatory Orders Acetaminophen [Tylenol] 650 mg PO Q6H PRN 07/19/18 Amlodipine Besylate [Norvasc -] 10 mg PO DAILY 07/19/18 Atorvastatin Ca [Lipitor] 10 mg PO HS 07/19/18 Calcium Acetate [Phoslo -] 667 mg PO TIDCM 07/19/18 Clonidine Patch [Catapres Tts Patch -] 0.2 mg TD [facility] 07/19/18 Ergocalciferol [Vitamin D2] 50,000 unit PO [facility] 07/19/18 Insulin Aspart [Novolog Flexpen] 100 unit SQ ASDIR 09/23/18 Carvedilol [Coreg -] 25 mg PO BID 07/17/19 Folic Acid 1 mg PO DAILY 07/17/19 Lactobacillus Acidophilus [Bacid -] 1 cap PO DAILY 07/17/19 Mirtazapine 30 mg PO HS 07/17/19 Sennosides [Senokot] 8.6 mg PO DAILY 07/17/19 Vitamin B Comp W-C [Nephro-Alejandro -] 0.8 mg PO DAILY 07/17/19 Ivermectin 12 mg PO ONCE #1 tablet 07/26/19 Pantoprazole Sodium [Protonix] 40 mg PO DAILY #60 tablet. 07/26/19 Review of Systems - Review of Systems Constitutional: denies: Chills, Fever, Weakness Gastrointestinal: reports: Melena, Rectal Bleeding. denies: Abdominal Pain, Diarrhea, Nausea, Vomiting Physical Examination Vital Signs: Vital Signs Temperature 98.4 F 07/27/19 09:23 Pulse Rate 62 07/27/19 08:48 Respiratory Rate 18 07/27/19 11:46 Blood Pressure 142/61 07/27/19 11:46 O2 Sat by Pulse Oximetry (%) 100 07/27/19 09:23 Constitutional: Yes: No Distress, Calm Cardiovascular: Yes: Regular Rate and Rhythm Respiratory: Yes: Diminished Gastrointestinal: Yes: Normal Bowel Sounds, Soft. No: Tenderness Edema: No Psychiatric: Yes: Alert Labs: CBC, BMP 07/27/19 10:30 07/27/19 10:14 Imaging - Results Chest X-ray: Image Reviewed (clear) Assessment/Plan A/P GI bleed s/p colonoscopy ESRD on HD CAD s/p CABG Dementia -- Keep NPO -- ICU eval -- spoke with ER -->will be transfusing one unit -- Not in volume overload, no emergent need for dialysis -- pt did not receive ASA or Plavix -- hold BP meds for now as pt is actively bleeding--> will resume once stable -- PPI -- DVT prophylaxis
[2019-07-27] MEDS ORDERED: ACETAMINOPHEN 325 MG TABLET (FP) PO PRN (11:53)
--- NOTE | 2019-07-27 12:02 | CONSULT ---
Consultation: REQUESTING PROVIDER: CONSULT REQUEST: We have been asked to medically evaluate this patient for ICU care. HISTORY OF PRESENT ILLNESS: Patient is a 64M with history of dementia, CAD with prior CABG, hypertension, hyperlipidemia, ESRD(T--Wed), diabetes mellitus, GERD and dysphagia here today with rectal bleeding. Patient was discharged from hospital yesterday after having colonoscopy for apple core lesion found on CT. Amount of bleeding unknown, but is actively bleeding in the ED. Patient is unable to give history 2/2 dementia, which is his baseline. Hgb is 10.1, down from 12.8 two days ago. GI was Digiorno, Lantin is covering and is aware. BPs and HR have been stable. REVIEW OF SYSTEMS: Unable to obtain 2/2 dementia. PHYSICAL EXAMINATION Vital Signs - 24 hr 07/27/19 07/27/19 07/27/19 08:48 09:15 09:23 Temperature 98.4 F 98.4 F Pulse Rate 62 Respiratory 18 19 Rate Blood Pressure 130/56 L 130/56 L Blood Pressure 130/57 L [Right Arm] O2 Sat by Pulse 99 100 Oximetry (%) 07/27/19 11:46 Temperature Pulse Rate Respiratory 18 Rate Blood Pressure Blood Pressure 142/61 [Right Arm] O2 Sat by Pulse Oximetry (%) GENERAL: Awake, alert, in no acute distress. Melanotic odor HEAD: Normal with no signs of trauma. EYES: Pupils equal, round and reactive to light, extraocular movements intact. EARS, NOSE, THROAT: Ears normal, nares patent, oropharynx clear without exudates. Dry mucous membranes. NECK: Normal range of motion, supple without lymphadenopathy, JVD, or masses. LUNGS: Breath sounds equal, clear to auscultation bilaterally. No wheezes, and no crackles. No accessory muscle use. HEART: Regular rate and rhythm, normal S1 and S2 without murmur, rub or gallop. ABDOMEN: Soft, nontender, not distended, normoactive bowel sounds, no guarding, no rebound. MUSCULOSKELETAL: Normal range of motion at all joints. No bony deformities or tenderness. UPPER EXTREMITIES: 2+ pulses, warm, well-perfused. No cyanosis. No clubbing. Cap refill <2 seconds. No peripheral edema. LOWER EXTREMITIES: 2+ pulses, warm, well-perfused. No calf tenderness. No peripheral edema. NEUROLOGICAL: Cranial nerves II-XII intact. Moves all 4 extremities. Slurred speech. PSYCHIATRIC: Cooperative. Good eye contact. SKIN: Warm, dry, normal turgor, no rashes or lesions noted. Laboratory Results - last 24 hr 07/27/19 07/27/19 07/27/19 10:14 10:30 10:30 WBC 4.4 RBC 3.28 L Hgb 10.1 L Hct 30.5 L D MCV 93.2 MCH 30.9 MCHC 33.1 RDW 15.6 Plt Count 139 MPV 9.6 Absolute Neuts (auto) 2.1 Neutrophils % 47.5 D Lymphocytes % 28.7 Monocytes % 9.7 Eosinophils % 13.8 H Basophils % 0.3 Nucleated RBC % 0 PT with INR INR PTT (Actin FS) Cancelled Sodium 142 Potassium 4.9 Chloride 102 Carbon Dioxide 32 Anion Gap 9 BUN 54.2 H Creatinine 5.3 H Est GFR (CKD-EPI)AfAm 12.39 Est GFR (CKD-EPI)NonAf 10.69 Random Glucose 82 Calcium 9.4 Total Bilirubin 0.6 AST 26 ALT 31 Alkaline Phosphatase 222 H Total Protein 6.8 Albumin 3.5 Stool Occult Blood Crossmatch 07/27/19 07/27/19 07/27/19 10:30 10:30 10:30 WBC RBC Hgb Hct MCV MCH MCHC RDW Plt Count MPV Absolute Neuts (auto) Neutrophils % Lymphocytes % Monocytes % Eosinophils % Basophils % Nucleated RBC % PT with INR 11.80 INR 1.00 PTT (Actin FS) 33.1 Sodium Potassium Chloride Carbon Dioxide Anion Gap BUN Creatinine Est GFR (CKD-EPI)AfAm Est GFR (CKD-EPI)NonAf Random Glucose Calcium Total Bilirubin AST ALT Alkaline Phosphatase Total Protein Albumin Stool Occult Blood Positive Crossmatch See Detail Active Medications Generic Name Dose Route Start Last Admin Trade Name Freq PRN Reason Stop Dose Admin Acetaminophen 650 mg 07/27/19 11:53 Tylenol - PO Q6H PRN pain,fever Pantoprazole Sodium 40 mg 07/27/19 12:00 Protonix Iv IVPUSH DAILY [facility] ASSESSMENT/PLAN: Patient is a 64M with history of dementia, CAD with prior CABG, hypertension, hyperlipidemia, ESRD(T--Sat), diabetes mellitus, GERD and dysphagia here today with rectal bleeding after colonoscopy. GI: - NPO - Protonix - Dr Parson consulted Cardio: - Hgb 10.1, down 2.7 from two days ago - Will give 1U PRBC due to active bleed, recheck CBC - CBC q6 - Tele monitoring Renal: - Dr Kumar on board, likely will dialyze tomorrow - K, Na normal - Will monitor lytes. Pulm: - Stable on room air Neuro: - Dementia at baseline F/E/N: - Recheck lytes in AM - NPO - 75cc/hr DVTppx : SCDs Dispo: ICU care Visit type - Emergency Visit Emergency Visit: Yes ED Registration Date: 07/27/19 Care time: The patient presented to the Emergency Department on the above date and was hospitalized for further evaluation of their emergent condition. - New Patient This patient is new to me today: Yes Date on this admission: 07/27/19 - Critical Care Critical Care patient: Yes Total Critical Care Time (in minutes): 35 Critical Care Statement: The care of this patient involved high complexity decision making to prevent further life threatening deterioration of the patient 's condition and/or to evaluate & treat vital organ system(s) failure or risk of failure. ATTENDING PHYSICIAN STATEMENT I saw and evaluated the patient. I reviewed the resident's note and discussed the case with the resident. I agree with the resident's findings and plan as documented. SUBJECTIVE: OBJECTIVE: ASSESSMENT AND PLAN:
[2019-07-27] MEDS ORDERED: PANTOPRAZOLE SODIUM 40 MG/100 ML BAG IVPB ONE (12:10)
[2019-07-27] MEDS: PANTOPRAZOLE SODIUM 40 MG VIAL IVPUSH SCH (12:16)
--- NOTE | 2019-07-27 12:23 | EKG ---
Test Reason : Blood Pressure : / mmHG Vent. Rate : 056 BPM Atrial Rate : 056 BPM P-R Int : 178 ms QRS Dur : 096 ms QT Int : 452 ms P-R-T Axes : 042 -09 043 degrees QTc Int : 436 ms SINUS BRADYCARDIA INCOMPLETE RIGHT BUNDLE BRANCH BLOCK POSSIBLE ANTEROSEPTAL INFARCT (CITED ON OR BEFORE 16-JUL-2019) ABNORMAL ECG WHEN COMPARED WITH ECG OF 17-JUL-2019 10:36, INCOMPLETE RIGHT BUNDLE BRANCH BLOCK IS NOW PRESENT QUESTIONABLE CHANGE IN INITIAL FORCES OF ANTERIOR LEADS Confirmed by NEETU WATTS MD ([id number]) on 07/27/2019 12:23:13 PM Referred By: Confirmed By:NEETU WATTS MD
--- NOTE | 2019-07-27 12:40 | PN ---
Teaching Attending Note Name of Resident: Anthony Clark ATTENDING PHYSICIAN STATEMENT I saw and evaluated the patient. I reviewed the resident's note and discussed the case with the resident. I agree with the resident's findings and plan as documented. SUBJECTIVE: Pt seen and examined in the ICU. Recently discharged after colonoscopy and multiple polypectomies sent from the detention for [facility]. Blood pressure stable. Hgb down 2 grams. Pt unable to provide further history at this time. OBJECTIVE: Vital Signs Period Temp Pulse Resp BP Sys/Chiang Pulse Ox Last 24 Hr 98.4 F-98.4 F 62 18-19 130-142/56-61 99-100 Intake & Output 07/24/19 07/25/19 07/26/19 07/27/19 23:59 23:59 23:59 23:59 Weight 55.792 kg Gen: somnolent but arousable Heart: RRR Lung: decreased breath sounds at the bases Abd: soft, nontender Ext: no edema CBC, BMP 07/27/19 10:30 07/27/19 10:14 Active Medications Acetaminophen (Tylenol -) 650 mg PO Q6H PRN PRN Reason: fever Pantoprazole Sodium (Protonix Iv) 40 mg IVPUSH DAILY [facility] Last Admin: 07/27/19 12:16 Dose: 40 mg ASSESSMENT AND PLAN: GI Bleed likely Lower Acute Blood Loss Anemia Recent Colonoscopy/Polypectomies CAD s/p CABG ESRD on HD HTN Hyperlipidemia - transfuse PRBC - monitor H/H - GI eval - empiric protonix - HD per renal - NPO for now - ICU observation
--- NOTE | 2019-07-27 12:50 | PDOC ---
Documentation entered by Rosetta Shepherd SCRIBE, acting as scribe for Aj Iyer MD. Aj Iyer MD: This documentation has been prepared by the Cora cortes Sammi, SCRIBE, under my direction and personally reviewed by me in its entirety. I confirm that the documentation accurately reflects all work, treatment, procedures, and medical decision making performed by me. History of Present Illness - General Chief Complaint: Rectal Bleed Stated Complaint: GI Bleed Time Seen by Provider: 07/27/19 09:28 - History of Present Illness Initial Comments: 07/27/19 11:49 The patient is a 64 year old male who presents to the emergency department for evaluation of rectal bleeding. Per [facility], when they were changing the patient this morning they noticed an unknown amount of blood per the rectum. Of note, the patient was recently admitted for a colonoscopy with discharge 2 days ago. MS notes the patient has not been on aspirin or plavix since he returned to [facility] after the colonoscopy. History is limited as the patient is demented. Medical history: CAD with prior CABG, hypertension, hyperlipidemia, ESRD(T-Th- Wed), diabetes mellitus, dementia, GERD, strongyloidis eshopagitis PCP: Jeanette Davenport GI: [facility] Past History - Past Medical History Allergies/Adverse Reactions: Allergies Allergy/AdvReac Type Severity Reaction Status Date / Time No Known Allergies Allergy Verified 07/27/19 10:09 Home Medications: Ambulatory Orders Acetaminophen [Tylenol] 650 mg PO Q6H PRN 07/19/18 Amlodipine Besylate [Norvasc -] 10 mg PO DAILY 07/19/18 Atorvastatin Ca [Lipitor] 10 mg PO HS 07/19/18 Calcium Acetate [Phoslo -] 667 mg PO TIDCM 07/19/18 Clonidine Patch [Catapres Tts Patch -] 0.2 mg TD MCMULLEN 07/19/18 Ergocalciferol [Vitamin D2] 50,000 unit PO MCMULLEN 07/19/18 Insulin Aspart [Novolog Flexpen] 100 unit SQ ASDIR 09/23/18 Carvedilol [Coreg -] 25 mg PO BID 07/17/19 Folic Acid 1 mg PO DAILY 07/17/19 Lactobacillus Acidophilus [Bacid -] 1 cap PO DAILY 07/17/19 Mirtazapine 30 mg PO HS 07/17/19 Sennosides [Senokot] 8.6 mg PO DAILY 07/17/19 Vitamin B Comp W-C [Nephro-Alejandro -] 0.8 mg PO DAILY 07/17/19 Ivermectin 12 mg PO ONCE #1 tablet 07/26/19 Pantoprazole Sodium [Protonix] 40 mg PO DAILY #60 tablet. 07/26/19 Anemia: Yes Cardiac Disorders: Yes (CAD, DVT right leg, Angina) COPD: No CHF: No DVT: Yes Dementia: Yes Diabetes: Yes Dialysis: Yes (tue- thur- sat right chest dialysis catheter) GI Disorders: Yes (GERD, Dysphagia) HTN: Yes Hypercholesterolemia: Yes - Surgical History Cardiac Surgery: Yes (CABG) Cholecystectomy: No GI Surgery: No - Immunization History Td Vaccination: No TDAP Vaccination: No Immunization Up to Date: Yes - Suicide/Smoking/Psychosocial Hx Smoking History: Unknown if ever smoked Have you smoked in the past 12 months: No Number of Cigarettes Smoked Daily: 0 Cigars Per Day: 0 Information on smoking cessation initiated: No Hx Alcohol Use: No Drug/Substance Use Hx: No Substance Use Type: None Hx Substance Use Treatment: No Review of Systems - Review of Systems Comments:: 07/27/19 11:50 GENERAL/CONSTITUTIONAL: No fever or chills. No weakness. HEAD, EYES, EARS, NOSE AND THROAT: No change in vision. No ear pain or discharge. No sore throat. GASTROINTESTINAL: (+)bright red rectal bleeding. No nausea, vomiting, diarrhea or constipation. GENITOURINARY: No dysuria, frequency, or change in urination. CARDIOVASCULAR: No chest pain or shortness of breath. RESPIRATORY: No cough, wheezing, or hemoptysis. MUSCULOSKELETAL: No joint or muscle swelling or pain. No neck or back pain. SKIN: No rash NEUROLOGIC: No headache, vertigo, loss of consciousness, or change in strength/ sensation. *Physical Exam - Vital Signs Last Vital Signs Temp Pulse Resp BP Pulse Ox 98.4 F 62 18 142/61 100 07/27/19 09:23 07/27/19 08:48 07/27/19 11:46 07/27/19 11:46 07/27/19 09:23 - Physical Exam Comments: 07/27/19 12:42 GENERAL: Awake, alert, and fully oriented, in no acute distress EYES: Sclera anicteric, conjunctiva clear ENT: Moist mucosa NECK: Normal ROM, supple, no lymphadenopathy, JVD, or masses LUNGS: Breath sounds equal, clear to auscultation bilaterally. No wheezes, and no crackles HEART: Regular rate and rhythm, normal S1 and S2, no murmurs, rubs or gallops ABDOMEN: Soft, nontender, normoactive bowel sounds. No guarding, no rebound. No masses RECTAL: slow oozing of BRB per rectum with clots EXTREMITIES: Normal range of motion, no edema. No cords, erythema, or tenderness NEUROLOGICAL: Normal speech, cranial nerves intact, equal strength and sensation b/l SKIN: Warm, Dry, normal turgor, no rashes or lesions noted. ED Treatment Course - LABORATORY CBC & Chemistry Diagram: 07/27/19 10:30 07/27/19 10:14 - ADDITIONAL ORDERS Additional order review: Laboratory Results 07/27/19 07/27/19 07/27/19 10:30 10:30 10:30 PT with INR 11.80 INR 1.00 PTT (Actin FS) 33.1 Sodium Potassium Chloride Carbon Dioxide Anion Gap BUN Creatinine Est GFR (CKD-EPI)AfAm Est GFR (CKD-EPI)NonAf Random Glucose Calcium Total Bilirubin AST ALT Alkaline Phosphatase Total Protein Albumin Stool Occult Blood Positive Crossmatch See Detail 07/27/19 07/27/19 10:30 10:14 PT with INR INR PTT (Actin FS) Cancelled Sodium 142 Potassium 4.9 Chloride 102 Carbon Dioxide 32 Anion Gap 9 BUN 54.2 H Creatinine 5.3 H Est GFR (CKD-EPI)AfAm 12.39 Est GFR (CKD-EPI)NonAf 10.69 Random Glucose 82 Calcium 9.4 Total Bilirubin 0.6 AST 26 ALT 31 Alkaline Phosphatase 222 H Total Protein 6.8 Albumin 3.5 Stool Occult Blood Crossmatch 07/27/19 10:30 RBC 3.28 L MCV 93.2 MCHC 33.1 RDW 15.6 MPV 9.6 Neutrophils % 47.5 D Lymphocytes % 28.7 Monocytes % 9.7 Eosinophils % 13.8 H Basophils % 0.3 - RADIOLOGY Radiology Studies Ordered: Category Date Time Status CHEST X-RAY PORTABLE* [RAD] Stat Radiology 07/27/19 10:15 Completed Medical Decision Making - Critical Care Time Total Critical Care Time (minutes): 30 Critical Care Statement: The care of this patient involved high complexity decision making to prevent further life threatening deterioration of the patient 's condition and/or to evaluate & treat vital organ system(s) failure or risk of failure. - Medical Decision Making 07/27/19 12:45 64yo M, MMP including ESRD, strongyloides esophagitis, recent colonoscopy with 8 polyps removed presents to the ED with BRBPR Vitals stable Labs concerning for 9 point hematocrit drop over 2 days (39->30) Pt off anticoagulation Case discussed with Dr. Parson, recommends 1 unit PRBC, and ICU placement Pt's brother consents over the phone for pt to get blood Case discussed with ICU resident Dr Clark, pt accepted for admission to ICU Case discussd with Dr. Montemayor who will be the admitting attending 2 PIVs placed, pt transported up to ICU *DC/Admit/Observation/Transfer Diagnosis at time of Disposition: Colonoscopy causing post-procedural bleeding - Discharge Dispostion Condition at time of disposition: Stable - Referrals - Patient Instructions - Post Discharge Activity - Attestations Physician Attestion: 07/27/19 12:49 I, Dr. Aj Iyer MD, attest that this document has been prepared under my direction and personally reviewed by me in its entirety. I further attest, that it accurately reflects all work, treatment, procedures and medical decision -making performed by me.
--- NOTE | 2019-07-27 13:15 | CON.GI ---
Consult Consult Specialty:: GI - History of Present Illness History of Present Illness: The patient was seen in ICU 64 y/o male was readmitted from the [place] because of rectal bleeding. He underwent a colonoscopy 07/25/[address] Mendez. He was noted to have multiple colonic polyps . He underwent polypectomy in the cecum, splenic flexure and rectosigmoid colon. Clips were applied int he rectosigmoid. The hemoglobin prior to discharge was 13 and now was noted to be decreased to 10. He was transferred to the ICU for further observation. In the ICU he had rectal bleeding. Patient awaiting blood transfusion.He has multiple antibodies.The patient was previously on Aspirin and Plavix which was discontinued.Patient was suppose to get dialysed today. Spoke to Dr Siu, he could be dialysed after the colonoscop.. - Past Medical History Cardio/Vascular: Yes: CAD (s/p CABG), HTN, Hyperlipdemia Gastrointestinal: Yes: Constipation Renal/: Yes: Renal Failure, Hemodialysis - Past Surgical History Past Surgical History: Yes: CABG - Alcohol/Substance Use Hx Alcohol Use: No - Smoking History Smoking history: Unknown if ever smoked Have you smoked in the past 12 months: No Aproximately how many cigarettes per day: 0 - Social History Usual Living Arrangement: Care Home ADL: Support Services Home Medications - Allergies Allergies/Adverse Reactions: Allergies Allergy/AdvReac Type Severity Reaction Status Date / Time No Known Allergies Allergy Verified 07/27/19 10:09 - Home Medications Home Medications: Ambulatory Orders Acetaminophen [Tylenol] 650 mg PO Q6H PRN 07/19/18 Amlodipine Besylate [Norvasc -] 10 mg PO DAILY 07/19/18 Atorvastatin Ca [Lipitor] 10 mg PO HS 07/19/18 Calcium Acetate [Phoslo -] 667 mg PO TIDCM 07/19/18 Clonidine Patch [Catapres Tts Patch -] 0.2 mg TD MCMULLEN 07/19/18 Ergocalciferol [Vitamin D2] 50,000 unit PO MCMULLEN 07/19/18 Insulin Aspart [Novolog Flexpen] 100 unit SQ ASDIR 09/23/18 Carvedilol [Coreg -] 25 mg PO BID 07/17/19 Folic Acid 1 mg PO DAILY 07/17/19 Lactobacillus Acidophilus [Bacid -] 1 cap PO DAILY 07/17/19 Mirtazapine 30 mg PO HS 07/17/19 Sennosides [Senokot] 8.6 mg PO DAILY 07/17/19 Vitamin B Comp W-C [Nephro-Alejandro -] 0.8 mg PO DAILY 07/17/19 Ivermectin 12 mg PO ONCE #1 tablet 07/26/19 Pantoprazole Sodium [Protonix] 40 mg PO DAILY #60 tablet. 07/26/19 Physical Exam-GI Vital Signs: Vital Signs Temperature 97.7 F 07/27/19 11:33 Pulse Rate 55 L 07/27/19 11:33 Respiratory Rate 18 07/27/19 11:46 Blood Pressure 142/61 07/27/19 11:46 O2 Sat by Pulse Oximetry (%) 99 07/27/19 11:33 Constitutional: Yes: Cachectic Eyes: Yes: Conjunctiva Clear HENT: Yes: Atraumatic Neck: Yes: Supple Cardiovascular: Yes: Regular Rate and Rhythm Respiratory: Yes: CTA Bilaterally ...Palpate: Yes: Soft. No: Firm/Rigid, Guarding, Hepatomegaly, Mass, Pulsatile Mass, Splenomegaly Labs: CBC, BMP 07/27/19 10:30 07/27/19 10:14 INR, PTT INR 1.00 (0.83-1.09) 07/27/19 10:30 Problem List - Problems (1) Colonoscopy causing post-procedural bleeding Assessment/Plan: post polypectomy bleeding R> if patient is to have dialysis , he will need to have it done heparin free transfuse 1 unit of PRBC, 1 unit of platele vit K 10mg IM for colonoscopy in am with Dr Dewitt Code(s): K91.840 - POSTPROC HEMOR OF A DGSTV SYS ORG FOL A DGSTV SYS PROCEDURE
[2019-07-27] MEDS ORDERED: SODIUM CHLORIDE 250 ML IV PRN (15:56)
--- NOTE | 2019-07-27 15:56 | CONSULT ---
Consult Consult Specialty:: Nephrology Reason for Consultation:: ESRD - History of Present Illness Chief Complaint: rectal bleeding History of Present Illness: Pt was sent back to the hospital for rectal bleeding. His last HD was yesterday. He did not get heparin. He did have a colonoscopy on last admission. He is awake and appears comfortable. He denies shortness of breath or palpitations. He had another episode of rectal bleeding. - Past Medical History Cardio/Vascular: Yes: CAD (s/p CABG), HTN, Hyperlipdemia Gastrointestinal: Yes: Constipation Renal/: Yes: Renal Failure, Hemodialysis - Past Surgical History Past Surgical History: Yes: CABG - Alcohol/Substance Use Hx Alcohol Use: No - Smoking History Smoking history: Unknown if ever smoked Have you smoked in the past 12 months: No Aproximately how many cigarettes per day: 0 - Social History Usual Living Arrangement: Jail ADL: Support Services Home Medications - Allergies Allergies/Adverse Reactions: Allergies Allergy/AdvReac Type Severity Reaction Status Date / Time No Known Allergies Allergy Verified 07/27/19 10:09 - Home Medications Home Medications: Ambulatory Orders Acetaminophen [Tylenol] 650 mg PO Q6H PRN 07/19/18 Amlodipine Besylate [Norvasc -] 10 mg PO DAILY 07/19/18 Atorvastatin Ca [Lipitor] 10 mg PO HS 07/19/18 Calcium Acetate [Phoslo -] 667 mg PO TIDCM 07/19/18 Clonidine Patch [Catapres Tts Patch -] 0.2 mg TD MCMULLEN 07/19/18 Ergocalciferol [Vitamin D2] 50,000 unit PO MCMULLEN 07/19/18 Insulin Aspart [Novolog Flexpen] 100 unit SQ ASDIR 09/23/18 Carvedilol [Coreg -] 25 mg PO BID 07/17/19 Folic Acid 1 mg PO DAILY 07/17/19 Lactobacillus Acidophilus [Bacid -] 1 cap PO DAILY 07/17/19 Mirtazapine 30 mg PO HS 07/17/19 Sennosides [Senokot] 8.6 mg PO DAILY 07/17/19 Vitamin B Comp W-C [Nephro-Alejandro -] 0.8 mg PO DAILY 07/17/19 Ivermectin 12 mg PO ONCE #1 tablet 07/26/19 Pantoprazole Sodium [Protonix] 40 mg PO DAILY #60 tablet. 07/26/19 Family Disease History - Family Disease History Family History: Denies Review of Systems - Review of Systems Constitutional: reports: No Symptoms Eyes: reports: No Symptoms HENT: reports: No Symptoms Neck: reports: No Symptoms Cardiovascular: reports: No Symptoms Gastrointestinal: reports: Rectal Bleeding Genitourinary: reports: No Symptoms Musculoskeletal: reports: No Symptoms Integumentary: reports: No Symptoms Physical Exam Vital Signs: Vital Signs Temperature 97.7 F 07/27/19 12:45 Pulse Rate 57 L 07/27/19 14:00 Respiratory Rate 17 07/27/19 14:00 Blood Pressure 139/51 L 07/27/19 14:00 O2 Sat by Pulse Oximetry (%) 99 07/27/19 11:33 Constitutional: Yes: Calm Eyes: Yes: Conjunctiva Clear HENT: Yes: Atraumatic Neck: Yes: Supple Cardiovascular: Yes: S1, S2 Respiratory: Yes: CTA Bilaterally Gastrointestinal: Yes: Normal Bowel Sounds, Soft Renal/: Yes: WNL Musculoskeletal: Yes: WNL Edema: No Neurological: Yes: Confusion Labs: CBC, BMP 07/27/19 10:30 07/27/19 10:14 Assessment/Plan Current Medications Generic Name Dose Route Start Last Admin Trade Name Freq PRN Reason Stop Dose Admin Acetaminophen 650 mg 07/27/19 11:53 Tylenol - PO Q6H PRN fever Pantoprazole Sodium 40 mg 07/27/19 12:00 07/27/19 12:16 Protonix Iv IVPUSH 40 mg DAILY BRAD Administration Impression 1. ESRD 2. GI bleed 3. dementia 4. dysphagia 5. anemia 6. CAD 7. hx CABG 8. DM 9. HLD Plan - monitor hg - will likely dialyze tomorrow - transfuse as needed - monitor hg levels - GI evaluation for GI bleed - pt had colonoscopy, follow pathology - 2 k bath f180 3:30, abf 450
[2019-07-27 16:29] LABS: HEMOGLOBIN 9.5 GM/dL (11.7-16.9); MCH 30.7 pg (25.7-33.7); MCHC 32.9 g/dl (32.0-35.9); MEAN CELL VOLUME 93.5 fl (80-96); MEAN PLT VOLUME 9.7 fl (7.5-11.1); PLATELET COUNT 115 K/MM3 (134-434); RBC 3.11 M/mm3 (4.00-5.60); RDW 15.7 % (11.9-15.9); WHITE BLOOD COUNT 3.6 K/mm3 (4.0-10.0)
[2019-07-27 21:59] LABS: HEMOGLOBIN 9.5 GM/dL (11.7-16.9); MCH 30.8 pg (25.7-33.7); MCHC 32.9 g/dl (32.0-35.9); MEAN CELL VOLUME 93.7 fl (80-96); MEAN PLT VOLUME 9.7 fl (7.5-11.1); PLATELET COUNT 135 K/MM3 (134-434); RDW 15.2 % (11.9-15.9)
[2019-07-27] MEDS: SODIUM CHLORIDE 1,000 ML IV SCH (23:00)
[2019-07-28] MEDS: SODIUM CHLORIDE 1,000 ML IV SCH (02:33)
[2019-07-28 06:21] LABS: BASO % 0.9 % (0-2.0); HEMATOCRIT 32.2 % (35.4-49); HEMOGLOBIN 10.9 GM/dL (11.7-16.9); LYMPH % 26.2 % (8-40); MCH 31.3 pg (25.7-33.7); MCHC 33.8 g/dl (32.0-35.9); MEAN CELL VOLUME 92.7 fl (80-96); MEAN PLT VOLUME 9.4 fl (7.5-11.1); MONO % 9.8 % (3.8-10.2); NEUT % 48.1 % (42.8-82.8); PLATELET COUNT 156 K/MM3 (134-434); RBC 3.48 M/mm3 (4.00-5.60); WHITE BLOOD COUNT 3.8 K/mm3 (4.0-10.0)
[2019-07-28 06:51] LABS: ALBUMIN 3.2 g/dl (3.4-5.0); BILIRUBIN,TOTAL 1.1 mg/dL (0.2-1); BLOOD UREA NITROGEN 67.3 mg/dL (7-18); CALCIUM 9.1 mg/dL (8.5-10.1); CREATININE 5.8 mg/dL (0.55-1.3); MAGNESIUM 2.3 mg/dL (1.8-2.4); PHOSPHOROUS 4.4 mg/dL (2.5-4.9); POTASSIUM 5.7 mmol/L (3.5-5.1); TOT PROT 6.1 g/dl (6.4-8.2)
--- NOTE | 2019-07-28 08:35 | PN ---
Physical Exam: SUBJECTIVE: Patient seen and examined at bedside. No acute o/n events. Pt has rcvd 2U PRBC. Denies f/c/n/v, chest pain/sob, abd pain. OBJECTIVE: Vital Signs Period Temp Pulse Resp BP Sys/Chiang Pulse Ox Last 24 Hr 97.5 F-98.4 F 55-62 7-19 130-157/49-62 99-100 GEN: Sleeping, easily arousable and alert. Comfortable. HEENT: NC/AT. No facial asymmetry. Normal voice. Supple neck w/ FROM. CV: S1/S2, RRR, +murmur best heard at base. LUNG: CTAB, no wheezes, crackles, rales, rhonchi. GI: soft, ndnt, +BS, no guarding, no rebound. No masses. EXTREMITIES: 2+ distal pulses. No LE edema. No obvious deformities of all extremities. SKIN: warm, dry, normal turgor Laboratory Results - last 24 hr 07/27/19 07/27/19 07/27/19 10:14 10:30 10:30 WBC 4.4 RBC 3.28 L Hgb 10.1 L Hct 30.5 L D MCV 93.2 MCH 30.9 MCHC 33.1 RDW 15.6 Plt Count 139 MPV 9.6 Absolute Neuts (auto) 2.1 Neutrophils % 47.5 D Lymphocytes % 28.7 Monocytes % 9.7 Eosinophils % 13.8 H Basophils % 0.3 Nucleated RBC % 0 PT with INR INR PTT (Actin FS) Cancelled Sodium 142 Potassium 4.9 Chloride 102 Carbon Dioxide 32 Anion Gap 9 BUN 54.2 H Creatinine 5.3 H Est GFR (CKD-EPI)AfAm 12.39 Est GFR (CKD-EPI)NonAf 10.69 POC Glucometer Random Glucose 82 Calcium 9.4 Phosphorus Magnesium Total Bilirubin 0.6 AST 26 ALT 31 Alkaline Phosphatase 222 H Total Protein 6.8 Albumin 3.5 Stool Occult Blood Blood Type Antibody Screen Direct Antiglob Test Crossmatch 07/27/19 07/27/19 07/27/19 10:30 10:30 10:30 WBC RBC Hgb Hct MCV MCH MCHC RDW Plt Count MPV Absolute Neuts (auto) Neutrophils % Lymphocytes % Monocytes % Eosinophils % Basophils % Nucleated RBC % PT with INR 11.80 INR 1.00 PTT (Actin FS) 33.1 Sodium Potassium Chloride Carbon Dioxide Anion Gap BUN Creatinine Est GFR (CKD-EPI)AfAm Est GFR (CKD-EPI)NonAf POC Glucometer Random Glucose Calcium Phosphorus Magnesium Total Bilirubin AST ALT Alkaline Phosphatase Total Protein Albumin Stool Occult Blood Positive Blood Type A POSITIVE Antibody Screen Negative Direct Antiglob Test Crossmatch See Detail 07/27/19 07/27/19 07/27/19 10:31 12:06 15:20 WBC 3.6 L RBC 3.11 L Hgb 9.5 L Hct 29.0 L MCV 93.5 MCH 30.7 MCHC 32.9 RDW 15.7 Plt Count 115 L MPV 9.7 Absolute Neuts (auto) Neutrophils % Lymphocytes % Monocytes % Eosinophils % Basophils % Nucleated RBC % PT with INR INR PTT (Actin FS) Sodium Potassium Chloride Carbon Dioxide Anion Gap BUN Creatinine Est GFR (CKD-EPI)AfAm Est GFR (CKD-EPI)NonAf POC Glucometer Random Glucose Calcium Phosphorus Magnesium Total Bilirubin AST ALT Alkaline Phosphatase Total Protein Albumin Stool Occult Blood Blood Type A POSITIVE Antibody Screen Direct Antiglob Test Positive H Crossmatch See Detail 07/27/19 07/27/19 07/27/19 16:56 21:00 23:10 WBC 3.0 L RBC 3.10 L Hgb 9.5 L Hct 29.0 L MCV 93.7 MCH 30.8 MCHC 32.9 RDW 15.2 Plt Count 135 MPV 9.7 Absolute Neuts (auto) Neutrophils % Lymphocytes % Monocytes % Eosinophils % Basophils % Nucleated RBC % PT with INR INR PTT (Actin FS) Sodium Potassium Chloride Carbon Dioxide Anion Gap BUN Creatinine Est GFR (CKD-EPI)AfAm Est GFR (CKD-EPI)NonAf POC Glucometer 84 87 Random Glucose Calcium Phosphorus Magnesium Total Bilirubin AST ALT Alkaline Phosphatase Total Protein Albumin Stool Occult Blood Blood Type Antibody Screen Direct Antiglob Test Crossmatch 07/28/19 07/28/19 05:45 05:45 WBC 3.8 L RBC 3.48 L Hgb 10.9 L Hct 32.2 L MCV 92.7 MCH 31.3 MCHC 33.8 RDW 15.0 Plt Count 156 MPV 9.4 Absolute Neuts (auto) 1.8 Neutrophils % 48.1 Lymphocytes % 26.2 Monocytes % 9.8 Eosinophils % 15.0 H Basophils % 0.9 Nucleated RBC % 0 PT with INR INR PTT (Actin FS) Sodium 141 Potassium 5.7 H Chloride 104 Carbon Dioxide 30 Anion Gap 7 L BUN 67.3 H Creatinine 5.8 H Est GFR (CKD-EPI)AfAm 11.11 Est GFR (CKD-EPI)NonAf 9.59 POC Glucometer Random Glucose 81 Calcium 9.1 Phosphorus 4.4 Magnesium 2.3 Total Bilirubin 1.1 H AST 23 ALT 24 Alkaline Phosphatase 186 H Total Protein 6.1 L Albumin 3.2 L Stool Occult Blood Blood Type Antibody Screen Direct Antiglob Test Crossmatch Active Medications Generic Name Dose Route Start Last Admin Trade Name Freq PRN Reason Stop Dose Admin Acetaminophen 650 mg 07/27/19 11:53 Tylenol - PO Q6H PRN fever Sodium Chloride 250 mls @ 3,000 mls/hr 07/27/19 15:56 Normal Saline - IV 07/28/19 15:56 PRN PRN Hypotension during Dialysis Pantoprazole Sodium 40 mg 07/27/19 12:00 07/27/19 12:16 Protonix Iv IVPUSH 40 mg DAILY BRAD Administration ASSESSMENT/PLAN: 64M PMH HTN, HLD, CAD s/p CABG, ESRD HD(//), DM, GERD, dysphagia admitted to ICU after presenting with active GI bleed. Had a colonscopy w/ polypectomy the day prior to admission. GI Bleed likely Lower Acute Blood Loss Anemia Recent Colonoscopy/Polypectomies CAD s/p CABG ESRD on HD HTN Hyperlipidemia GI - likely LGIB; recent colonoscopy w/ polypectomy - GI recs appreciated - NPO - Protonix - Vit K - Bowel prep - Colonoscopy per GI CARD - HTN, HLD, CAD s/p CABG, acute blood loss anemia - Hgb 10.9 < 9.5 < 9.5 - s/p 2U PRBC - monitor H/H - telemetry - BP Rx held RENAL - ESRD HD() - HD completed today - Renal recs appreciated ENDO - DM - BGM, AISS FEN - monitor lytes, H/H - AM labs - NPO - DC NS 75cc/h PPX - SCD Visit type - Emergency Visit Emergency Visit: Yes ED Registration Date: 07/27/19 Care time: The patient presented to the Emergency Department on the above date and was hospitalized for further evaluation of their emergent condition. - New Patient This patient is new to me today: Yes - Critical Care Critical Care patient: Yes Total Critical Care Time (in minutes): 35 Critical Care Statement: The care of this patient involved high complexity decision making to prevent further life threatening deterioration of the patient 's condition and/or to evaluate & treat vital organ system(s) failure or risk of failure.
--- NOTE | 2019-07-28 09:45 | PN ---
Progress Note (short form) - Note Progress Note: pt seen/ examined in icu chart reviewed events noted awake/ comfortable denies pain Being dialized had dark Bms last night h/h stable currently npo off asa/ plavix all consults noted / appreciated Vital Signs Temp 98.2 F 07/28/19 07:10 Pulse 67 07/28/19 09:15 Resp 18 07/28/19 09:15 BP 165/49 L 07/28/19 09:15 Pulse Ox 100 07/27/19 22:00 Intake & Output 07/27/19 07/27/19 07/28/19 11:59 23:59 11:59 Intake Total 850 900 Balance 850 900 Weight 115 lb 12.8 oz 117 lb 11.2 oz Intake: IV 150 500 Normal Saline - 1,000 ml 150 300 @ 75 mls/hr IV ASDIR [facility] Rx#:[id number] Right AC 200 IVPB 100 50 Oral 0 Packed Cells 350 350 Platelets 250 Other: Voiding Method Diaper Diaper Bowel Movement Yes Yes: large bloody # Bowel Movements 1 1 Height 5 ft 2 in Body Mass Index (BMI) 21.2 Weight Measurement Method Built in Bedscale Built in Bedscale Weight Measurement Method Built in Stretcher Scale Active Medications Acetaminophen (Tylenol -) 650 mg PO Q6H PRN PRN Reason: fever Pantoprazole Sodium (Protonix Iv) 40 mg IVPUSH DAILY [facility] Last Admin: 07/27/19 12:16 Dose: 40 mg CBC, BMP 07/28/19 05:45 07/28/19 05:45 Physical Examination Constitutional: Yes: No Distress, Calm and comfortable Cardiovascular: Yes: Regular Rate and Rhythm Respiratory: Yes: Diminished Gastrointestinal: Yes: Normal Bowel Sounds, Soft. No: Tenderness Edema: No Psychiatric: Yes: Alert Imaging - Results Chest X-ray: Image Reviewed (clear) Assessment/Plan A/P GI bleed s/p colonoscopy-- polyp removal ESRD on HD CAD s/p CABG Dementia -- Keep NPO for now -- ICU Monitoring -- -- hold BP meds for now as pt is actively bleeding--> will resume once stable -- PPI -- DVT prophylaxis -d/c fluids -Monitor cbc Will follow D/w RN also will discuss with ICU team also cc time approx 35 min Problem List - Problems (1) Colonoscopy causing post-procedural bleeding Code(s): K91.840 - POSTPROC HEMOR OF A DGSTV SYS ORG FOL A DGSTV SYS PROCEDURE (2) ESRD (end stage renal disease) Code(s): N18.6 - END STAGE RENAL DISEASE (3) S/P CABG (coronary artery bypass graft) Code(s): Z95.1 - PRESENCE OF AORTOCORONARY BYPASS GRAFT
[2019-07-28] MEDS ORDERED: PHYTONADIONE 10 MG/1 ML AMP IVPB ONE (10:30)
[2019-07-28] MEDS: PANTOPRAZOLE SODIUM 40 MG VIAL IVPUSH SCH (12:32)
--- NOTE | 2019-07-28 13:58 | PN ---
Teaching Attending Note Name of Resident: Trey Martínez ATTENDING PHYSICIAN STATEMENT I saw and evaluated the patient. I reviewed the resident's note and discussed the case with the resident. I agree with the resident's findings and plan as documented. SUBJECTIVE: Patient seen and examined in the ICU. Currently on HD. Denies CP or SOB. No occult bleeding noted. For possible endoscopic evaluation noted. Intake & Output 07/25/19 07/26/19 07/27/19 07/28/19 23:59 23:59 23:59 23:59 Intake Total 850 1200 Output Total 1500 Balance 850 -300 Weight 115 lb 12.8 oz 117 lb 11.2 oz Last Vital Signs Temp Pulse Resp BP Pulse Ox 98.2 F 65 17 173/52 H 100 07/28/19 10:00 07/28/19 12:00 07/28/19 12:00 07/28/19 12:00 07/28/19 10:00 Active Medications Acetaminophen (Tylenol -) 650 mg PO Q6H PRN PRN Reason: fever Pantoprazole Sodium (Protonix Iv) 40 mg IVPUSH DAILY [facility] Last Admin: 07/28/19 12:32 Dose: 40 mg Gen: Awake and alert Heart: RRR Lung: decreased breath sounds at the bases Abd: soft, nontender Ext: no edema Laboratory Results - last 24 hr 07/27/19 07/27/19 07/27/19 10:30 10:31 15:20 WBC 3.6 L RBC 3.11 L Hgb 9.5 L Hct 29.0 L MCV 93.5 MCH 30.7 MCHC 32.9 RDW 15.7 Plt Count 115 L MPV 9.7 Absolute Neuts (auto) Neutrophils % Lymphocytes % Monocytes % Eosinophils % Basophils % Nucleated RBC % Sodium Potassium Chloride Carbon Dioxide Anion Gap BUN Creatinine Est GFR (CKD-EPI)AfAm Est GFR (CKD-EPI)NonAf POC Glucometer Random Glucose Calcium Phosphorus Magnesium Total Bilirubin AST ALT Alkaline Phosphatase Total Protein Albumin Blood Type A POSITIVE Antibody Screen Negative Crossmatch See Detail See Detail 07/27/19 07/27/19 07/27/19 16:56 21:00 23:10 WBC 3.0 L RBC 3.10 L Hgb 9.5 L Hct 29.0 L MCV 93.7 MCH 30.8 MCHC 32.9 RDW 15.2 Plt Count 135 MPV 9.7 Absolute Neuts (auto) Neutrophils % Lymphocytes % Monocytes % Eosinophils % Basophils % Nucleated RBC % Sodium Potassium Chloride Carbon Dioxide Anion Gap BUN Creatinine Est GFR (CKD-EPI)AfAm Est GFR (CKD-EPI)NonAf POC Glucometer 84 87 Random Glucose Calcium Phosphorus Magnesium Total Bilirubin AST ALT Alkaline Phosphatase Total Protein Albumin Blood Type Antibody Screen Crossmatch 07/28/19 07/28/19 05:45 05:45 WBC 3.8 L RBC 3.48 L Hgb 10.9 L Hct 32.2 L MCV 92.7 MCH 31.3 MCHC 33.8 RDW 15.0 Plt Count 156 MPV 9.4 Absolute Neuts (auto) 1.8 Neutrophils % 48.1 Lymphocytes % 26.2 Monocytes % 9.8 Eosinophils % 15.0 H Basophils % 0.9 Nucleated RBC % 0 Sodium 141 Potassium 5.7 H Chloride 104 Carbon Dioxide 30 Anion Gap 7 L BUN 67.3 H Creatinine 5.8 H Est GFR (CKD-EPI)AfAm 11.11 Est GFR (CKD-EPI)NonAf 9.59 POC Glucometer Random Glucose 81 Calcium 9.1 Phosphorus 4.4 Magnesium 2.3 Total Bilirubin 1.1 H AST 23 ALT 24 Alkaline Phosphatase 186 H Total Protein 6.1 L Albumin 3.2 L Blood Type Antibody Screen Crossmatch ASSESSMENT AND PLAN: GI Bleed likely Lower Acute Blood Loss Anemia Recent Colonoscopy/Polypectomies CAD s/p CABG ESRD on HD HTN Hyperlipidemia - Normal transfusions thresholds - Follow H/H - Protonix - HD per renal - NPO for now - For endoscopic evaluation - ICU observation for recurrent bleeding Dr Dunn Critical care time spent in reviewing chart, evaluating patient and formulating plan - 36 minutes.
--- NOTE | 2019-07-28 14:19 | PN ---
Progress Note, Physician History of Present Illness: Pt seen and examined at bedside. He is awake and appears comfortable. He remains confused. - Current Medication List Current Medications: Active Medications Acetaminophen (Tylenol -) 650 mg PO Q6H PRN PRN Reason: fever Pantoprazole Sodium (Protonix Iv) 40 mg IVPUSH DAILY [facility] Last Admin: 07/28/19 12:32 Dose: 40 mg - Objective Vital Signs: Vital Signs Temperature 98.2 F 07/28/19 10:00 Pulse Rate 65 07/28/19 12:00 Respiratory Rate 17 07/28/19 12:00 Blood Pressure 173/52 H 07/28/19 12:00 O2 Sat by Pulse Oximetry (%) 100 07/28/19 10:00 Constitutional: Yes: Calm Eyes: Yes: Conjunctiva Clear HENT: Yes: Atraumatic Neck: Yes: Supple Cardiovascular: Yes: S1, S2 Respiratory: Yes: CTA Bilaterally Gastrointestinal: Yes: Soft Genitourinary: Yes: Incontinence Musculoskeletal: Yes: WNL Edema: No Neurological: Yes: Confusion Labs: CBC, BMP 07/28/19 05:45 07/28/19 05:45 INR, PTT INR 1.00 (0.83-1.09) 07/27/19 10:30 Assessment/Plan Current Medications Generic Name Dose Route Start Last Admin Trade Name Freq PRN Reason Stop Dose Admin Acetaminophen 650 mg 07/27/19 11:53 Tylenol - PO Q6H PRN fever Pantoprazole Sodium 40 mg 07/27/19 12:00 07/28/19 12:32 Protonix Iv IVPUSH 40 mg DAILY [facility]AD Administration Impression 1. ESRD 2. GI bleed 3. dementia 4. dysphagia 5. anemia 6. CAD 7. hx CABG 8. DM 9. HLD Plan - pt tolerated HD - monitor hg - GI follow up - pt npo for now, renal diet once he eats - pt had colonoscopy, follow pathology - 2 k bath f180 3:30, abf 450
--- NOTE | 2019-07-28 17:49 | PN.GI ---
GI Progress Note Subjective: GI Note ( covering Dr Gutiérrez)- fortunately no bleeding since before 7AM. Denies pain. Tolerated dialysis - Objective Vital Signs: Vital Signs Temperature 98.2 F 07/28/19 10:00 Pulse Rate 64 07/28/19 16:00 Respiratory Rate 17 07/28/19 16:00 Blood Pressure 160/52 L 07/28/19 16:00 O2 Sat by Pulse Oximetry (%) 100 07/28/19 10:00 CBC,CMP WBC 3.8 K/mm3 (4.0-10.0) L 07/28/19 05:45 RBC 3.48 M/mm3 (4.00-5.60) L 07/28/19 05:45 Hgb 10.9 GM/dL (11.7-16.9) L 07/28/19 05:45 Hct 32.2 % (35.4-49) L 07/28/19 05:45 MCV 92.7 fl (80-96) 07/28/19 05:45 MCH 31.3 pg (25.7-33.7) 07/28/19 05:45 MCHC 33.8 g/dl (32.0-35.9) 07/28/19 05:45 RDW 15.0 % (11.9-15.9) 07/28/19 05:45 Plt Count 156 K/MM3 (134-434) 07/28/19 05:45 MPV 9.4 fl (7.5-11.1) 07/28/19 05:45 Absolute Neuts (auto) 1.8 K/mm3 (1.5-8.0) 07/28/19 05:45 Neutrophils % 48.1 % (42.8-82.8) 07/28/19 05:45 Lymphocytes % 26.2 % (8-40) 07/28/19 05:45 Monocytes % 9.8 % (3.8-10.2) 07/28/19 05:45 Eosinophils % 15.0 % (0-4.5) H 07/28/19 05:45 Basophils % 0.9 % (0-2.0) 07/28/19 05:45 Nucleated RBC % 0 % (0-0) 07/28/19 05:45 Sodium 141 mmol/L (136-145) 07/28/19 05:45 Potassium 5.7 mmol/L (3.5-5.1) H 07/28/19 05:45 Chloride 104 mmol/L (98-107) 07/28/19 05:45 Carbon Dioxide 30 mmol/L (21-32) 07/28/19 05:45 Anion Gap 7 MMOL/L (8-16) L 07/28/19 05:45 BUN 67.3 mg/dL (7-18) H 07/28/19 05:45 Creatinine 5.8 mg/dL (0.55-1.3) H 07/28/19 05:45 Est GFR (CKD-EPI)AfAm 11.11 07/28/19 05:45 Est GFR (CKD-EPI)NonAf 9.59 07/28/19 05:45 POC Glucometer 87 UNITS (80-120) 07/27/19 23:10 Random Glucose 81 mg/dL (74-106) 07/28/19 05:45 Calcium 9.1 mg/dL (8.5-10.1) 07/28/19 05:45 Phosphorus 4.4 mg/dL (2.5-4.9) 07/28/19 05:45 Magnesium 2.3 mg/dL (1.8-2.4) 07/28/19 05:45 Total Bilirubin 1.1 mg/dL (0.2-1) H 07/28/19 05:45 AST 23 U/L (15-37) 07/28/19 05:45 ALT 24 U/L (13-61) 07/28/19 05:45 Alkaline Phosphatase 186 U/L (45-117) H 07/28/19 05:45 Total Protein 6.1 g/dl (6.4-8.2) L 07/28/19 05:45 Albumin 3.2 g/dl (3.4-5.0) L 07/28/19 05:45 Constitutional: Calm ...Auscultate: Yes: Normoactive Bowel Sounds ...Palpate: Yes: Soft, Other (nontender) Labs: CBC, BMP 07/28/19 05:45 07/28/19 05:45 INR, PTT INR 1.00 (0.83-1.09) 07/27/19 10:30 Assessment/Plan Assessment: - Suspected postpolypectomy bleeding appearing to be subsiding Plan: - Keep NPO for now - Avoid anticoagulants - Seral CBCs Problem List - Problems (1) GI hemorrhage Code(s): K92.2 - GASTROINTESTINAL HEMORRHAGE, UNSPECIFIED (2) Post-polypectomy bleeding Code(s): XWK1890 - (3) Colonoscopy causing post-procedural bleeding Code(s): K91.840 - POSTPROC HEMOR OF A DGSTV SYS ORG FOL A DGSTV SYS PROCEDURE (4) ESRD (end stage renal disease) Code(s): N18.6 - END STAGE RENAL DISEASE (5) S/P CABG (coronary artery bypass graft) Code(s): Z95.1 - PRESENCE OF AORTOCORONARY BYPASS GRAFT
[2019-07-28 21:44] LABS: EOS % 17.8 % (0-4.5); HEMATOCRIT 30.6 % (35.4-49); HEMOGLOBIN 10.1 GM/dL (11.7-16.9); LYMPH % 21.9 % (8-40); MCHC 33.1 g/dl (32.0-35.9); MEAN CELL VOLUME 93.5 fl (80-96); MONO % 7.2 % (3.8-10.2); NEUT % 52.1 % (42.8-82.8); PLATELET COUNT 168 K/MM3 (134-434); RBC 3.27 M/mm3 (4.00-5.60); RDW 14.9 % (11.9-15.9); WHITE BLOOD COUNT 4.2 K/mm3 (4.0-10.0)
[2019-07-29 07:03] LABS: HEMATOCRIT 27.4 % (35.4-49); HEMOGLOBIN 9.4 GM/dL (11.7-16.9); MCH 31.7 pg (25.7-33.7); MCHC 34.4 g/dl (32.0-35.9); MEAN CELL VOLUME 92.2 fl (80-96); MEAN PLT VOLUME 9.4 fl (7.5-11.1); PLATELET COUNT 163 K/MM3 (134-434); RBC 2.97 M/mm3 (4.00-5.60); WHITE BLOOD COUNT 4.3 K/mm3 (4.0-10.0)
[2019-07-29 07:45] LABS: ALBUMIN 3.1 g/dl (3.4-5.0); BILIRUBIN,TOTAL 0.8 mg/dL (0.2-1); BLOOD UREA NITROGEN 36.8 mg/dL (7-18); CALCIUM 8.4 mg/dL (8.5-10.1); CREATININE 3.4 mg/dL (0.55-1.3); MAGNESIUM 1.9 mg/dL (1.8-2.4); PHOSPHOROUS 3.8 mg/dL (2.5-4.9); POTASSIUM 4.4 mmol/L (3.5-5.1)
--- NOTE | 2019-07-29 07:58 | PN ---
Progress Note (short form) - Note Progress Note: RENAL Pt is awake and alert c/o abdominal pain thinks its because he is hungry Last Vital Signs Temp Pulse Resp BP Pulse Ox 97.7 F 64 13 164/51 L 100 07/29/19 06:00 07/29/19 06:00 07/29/19 06:00 07/29/19 06:00 07/28/19 21:19 lungs clear cvs s1s2 rr abd soft, +bs ext no edema, dvt boots on neuro a+ox3 CBC, BMP 07/29/19 05:10 07/29/19 05:10 Current Medications Generic Name Dose Route Start Last Admin Trade Name Freq PRN Reason Stop Dose Admin Acetaminophen 650 mg 07/27/19 11:53 Tylenol - PO Q6H PRN fever Pantoprazole Sodium 40 mg 07/27/19 12:00 07/28/19 12:32 Protonix Iv IVPUSH 40 mg DAILY [facility] Administration Impression 1. ESRD 2. GI bleed- thought to be postpolypectomy bleeding 3. dementia 4. dysphagia 5. anemia 6. CAD 7. hx CABG 8. DM 9. HLD 10 HTN Plan no need for hd today may be able to eat again, would ask GI restart carvedilol 12.5 bid for now MV
[2019-07-29] MEDS: PANTOPRAZOLE SODIUM 40 MG VIAL IVPUSH SCH (10:18)
--- NOTE | 2019-07-29 10:33 | PN ---
Progress Note (short form) - Note Progress Note: No bm since last night-- had small amount of bloody stool last night states he is hungry no complaints BP elevated Vital Signs - 24 hr 07/28/19 07/28/19 07/28/19 12:00 14:00 16:00 Temperature Pulse Rate 65 69 64 Respiratory 17 17 Rate Blood Pressure 173/52 H 159/62 160/52 L O2 Sat by Pulse Oximetry (%) 07/28/19 07/28/19 07/28/19 18:43 20:00 21:19 Temperature Pulse Rate 77 62 Respiratory 17 12 17 Rate Blood Pressure 159/49 L 150/48 L O2 Sat by Pulse 100 Oximetry (%) 07/28/19 07/29/19 07/29/19 22:00 00:00 02:00 Temperature 98.1 F 97.6 F Pulse Rate 65 62 70 Respiratory 17 12 16 Rate Blood Pressure 167/52 L 166/49 L 173/54 H O2 Sat by Pulse Oximetry (%) 07/29/19 07/29/19 07/29/19 02:26 06:00 08:00 Temperature 97.7 F 97.8 F Pulse Rate 69 64 67 Respiratory 13 14 Rate Blood Pressure 176/51 H 164/51 L 181/50 H O2 Sat by Pulse Oximetry (%) 07/29/19 10:00 Temperature 97.6 F Pulse Rate 75 Respiratory 15 Rate Blood Pressure 168/53 L O2 Sat by Pulse 100 Oximetry (%) Current Medications Generic Name Dose Route Start Last Admin Trade Name Freq PRN Reason Stop Dose Admin Acetaminophen 650 mg 07/27/19 11:53 Tylenol - PO Q6H PRN fever Amlodipine Besylate 10 mg 07/29/19 11:15 Norvasc - PO DAILY [facility]AD Carvedilol 25 mg 07/29/19 11:15 Coreg - PO BID [facility]AD Clonidine HCl 0.2 mg 07/30/19 11:02 Catapres Tts Patch - TD MCMULLEN [facility] Pantoprazole Sodium 40 mg 07/27/19 12:00 07/29/19 10:18 Protonix Iv IVPUSH 40 mg DAILY [facility] Administration Laboratory Results - last 24 hr 07/28/19 07/29/19 07/29/19 21:35 05:10 05:10 WBC 4.2 4.3 RBC 3.27 L 2.97 L Hgb 10.1 L 9.4 L Hct 30.6 L 27.4 L MCV 93.5 92.2 MCH 31.0 31.7 MCHC 33.1 34.4 RDW 14.9 15.0 Plt Count 168 163 MPV 9.0 9.4 Absolute Neuts (auto) 2.2 Neutrophils % 52.1 Lymphocytes % 21.9 Monocytes % 7.2 Eosinophils % 17.8 H Basophils % 1.0 Nucleated RBC % 0 Sodium 144 Potassium 4.4 Chloride 101 Carbon Dioxide 31 Anion Gap 12 BUN 36.8 H Creatinine 3.4 H Est GFR (CKD-EPI)AfAm 21.20 Est GFR (CKD-EPI)NonAf 18.29 Random Glucose 50 L Calcium 8.4 L Phosphorus 3.8 Magnesium 1.9 Total Bilirubin 0.8 AST 20 ALT 20 Alkaline Phosphatase 170 H Total Protein 6.0 L Albumin 3.1 L S1 S2 RRR Lungs clear Abd- soft, Nt No edema PLAN Start clears for lunch-- HCT stable no further bleeding Keep protonix restart BP meds monitor for bleeding Problem List - Problems (1) Colonoscopy causing post-procedural bleeding Code(s): K91.840 - POSTPROC HEMOR OF A DGSTV SYS ORG FOL A DGSTV SYS PROCEDURE (2) GI hemorrhage Code(s): K92.2 - GASTROINTESTINAL HEMORRHAGE, UNSPECIFIED (3) Post-polypectomy bleeding Code(s): [id number] - (4) CAD (coronary artery disease) Code(s): I25.10 - ATHSCL HEART DISEASE OF [place] CORONARY ARTERY W/O ANG PCTRS Qualifiers: Coronary Disease-Associated Artery/Lesion type: [place] artery [place] vs. transplanted heart: [place] heart Associated angina: without angina Qualified Code(s): I25.10 - Atherosclerotic heart disease of [place] coronary artery without angina pectoris (5) ESRD (end stage renal disease) Code(s): N18.6 - END STAGE RENAL DISEASE (6) HTN (hypertension) Code(s): I10 - ESSENTIAL (PRIMARY) HYPERTENSION
[2019-07-29] MEDS: CARVEDILOL 25 MG TABLET (FP) PO SCH ×2 (11:42→22:30)
[2019-07-29] MEDS: amLODIPine BESYLATE 10 MG TABLET (FP) PO SCH (11:42)
--- NOTE | 2019-07-29 13:05 | PN ---
Progress Note (short form) - Note Progress Note: Seen and examined in the ICU HGB stable tolerated iHD diet advanced to clears this AM Current Medications Acetaminophen (Tylenol -) 650 mg PO Q6H PRN PRN Reason: fever Amlodipine Besylate (Norvasc -) 10 mg PO DAILY [facility] Last Admin: 07/29/19 11:42 Dose: 10 mg Carvedilol (Coreg -) 25 mg PO BID [facility] Last Admin: 07/29/19 11:42 Dose: 25 mg Clonidine HCl (Catapres Tts Patch -) 0.2 mg TD MCMULLEN [facility] Pantoprazole Sodium (Protonix Iv) 40 mg IVPUSH DAILY [facility] Last Admin: 07/29/19 10:18 Dose: 40 mg Vital Signs Period Temp Pulse Resp BP Sys/Chiang Pulse Ox Last 24 Hr 97.6 F-98.1 F 62-77 12-17 150-181/48-62 100-100 Intake & Output 07/26/19 07/27/19 07/28/19 07/29/19 23:59 23:59 23:59 23:59 Intake Total 850 1200 Output Total 1500 Balance 850 -300 Weight 52.526 kg 53.388 kg 52.435 kg CBC, BMP 07/29/19 05:10 07/29/19 05:10 Exam: awake and alert,KANG HEENT: c/o blurry vision (not new) for left eye. no JVD Pulm: CTA Abd: SNTND +BS EXT: WWP, no edema Neuro: grossly intact ASSESSMENT AND PLAN: GI Bleed likely Lower Acute Blood Loss Anemia Recent Colonoscopy/Polypectomies CAD s/p CABG ESRD on HD HTN Hyperlipidemia - Normal transfusions thresholds: gaol Hgb >7.0 - trend hgb - Protonix - HD per renal - advance diet as toelrated - stable for floor transfer Boerem ACNP Pulm/CCM CCT: 35
--- NOTE | 2019-07-29 17:16 | PN.GI ---
GI Progress Note Subjective: GI NOte ( covering Dr Gutiérrez); No bleeding during the day. Small amount of blood overnight. Hb stable. No pain,. Hungry. Tolerated clear liquid lunch - Objective Vital Signs: Vital Signs Temperature 97.9 F 07/29/19 12:00 Pulse Rate 68 07/29/19 16:00 Respiratory Rate 8 L 07/29/19 16:00 Blood Pressure 151/52 L 07/29/19 16:00 O2 Sat by Pulse Oximetry (%) 100 07/29/19 10:00 Laboratory Tests 07/28/19 07/29/19 21:35 05:10 Hgb 10.1 L 9.4 L Constitutional: Calm ...Auscultate: Yes: Normoactive Bowel Sounds ...Palpate: Yes: Soft, Other (nontender) Labs: CBC, BMP 07/29/19 05:10 07/29/19 05:10 INR, PTT INR 1.00 (0.83-1.09) 07/27/19 10:30 Assessment/Plan Assessment: - Suspected postpolypectomy bleeding appearing to be subsiding Plan: - Trial of full liquids - Avoid anticoagulants - Serial CBCs Problem List - Problems (1) GI hemorrhage Code(s): K92.2 - GASTROINTESTINAL HEMORRHAGE, UNSPECIFIED (2) Post-polypectomy bleeding Code(s): [id number] - (3) Colonoscopy causing post-procedural bleeding Code(s): K91.840 - POSTPROC HEMOR OF A DGSTV SYS ORG FOL A DGSTV SYS PROCEDURE (4) ESRD (end stage renal disease) Code(s): N18.6 - END STAGE RENAL DISEASE (5) S/P CABG (coronary artery bypass graft) Code(s): Z95.1 - PRESENCE OF AORTOCORONARY BYPASS GRAFT
[2019-07-30] MEDS ORDERED: SODIUM CHLORIDE 500 ML IV STA (00:28)
[2019-07-30] MEDS ORDERED: LACTATED RINGERS SOLUTION 1000 ML INFUS.BAG IV ONE (00:30)
[2019-07-30 01:27] LABS: HEMATOCRIT 22.3 % (35.4-49); HEMOGLOBIN 7.4 GM/dL (11.7-16.9); MCHC 33.3 g/dl (32.0-35.9); MEAN CELL VOLUME 93.1 fl (80-96); MEAN PLT VOLUME 9.4 fl (7.5-11.1); PLATELET COUNT 150 K/MM3 (134-434); RBC 2.39 M/mm3 (4.00-5.60); RDW 14.9 % (11.9-15.9); WHITE BLOOD COUNT 3.4 K/mm3 (4.0-10.0)
[2019-07-30] MEDS ORDERED: HALOPERIDOL LACTATE 5 MG/ML IM ONE (03:33)
[2019-07-30] MEDS ORDERED: HALOPERIDOL LACTATE 5 MG/ML ONE (03:35)
--- NOTE | 2019-07-30 08:09 | PN ---
Progress Note (short form) - Note Progress Note: RENAL Pt is awake and alert has been pulling his iv catheters Last Vital Signs Temp Pulse Resp BP Pulse Ox 97.7 F 66 14 150/56 L 100 07/30/19 05:00 07/30/19 06:06 07/30/19 06:06 07/30/19 06:06 07/29/19 20:32 heent has blood on his left neck post pulling an EJ even though he is restrained and has mittens lungs clear cvs s1s2 rr abd soft, +bs ext no edema, dvt boots on neuro confused CBC, BMP 07/30/19 01:00 07/29/19 05:10 Current Medications Generic Name Dose Route Start Last Admin Trade Name Freq PRN Reason Stop Dose Admin Acetaminophen 650 mg 07/27/19 11:53 Tylenol - PO Q6H PRN fever Amlodipine Besylate 10 mg 07/29/19 11:15 07/29/19 11:42 Norvasc - PO 10 mg DAILY [facility]AD Administration Carvedilol 25 mg 07/29/19 11:15 07/29/19 22:30 Coreg - PO 25 mg BID BRAD Administration Clonidine HCl 0.2 mg 07/30/19 11:02 Catapres Tts Patch - TD MCMULLEN [facility] Pantoprazole Sodium 40 mg 07/27/19 12:00 07/29/19 10:18 Protonix Iv IVPUSH 40 mg DAILY [facility] Administration Impression 1. ESRD 2. GI bleed- thought to be postpolypectomy bleeding 3. dementia 4. dysphagia 5. anemia 6. CAD 7. hx CABG 8. DM 9. HLD 10 HTN Plan needs to be sedated monitor hgb can be transfused if necessary, slowly will dialyze again tomorrow MV
[2019-07-30] MEDS ORDERED: DESMOPRESSIN ACETATE 4 MCG/ML AMP IVPB ONE (08:29)
--- NOTE | 2019-07-30 08:29 | PN ---
Progress Note (short form) - Note Progress Note: Seen and examined in the ICU -melena overnight x4 -Hgb dropped 9.4->7.4 -PRBC x1 given w/ one pending this AM -patient very delirious overnight pulling out multiple IV sites -DDAVP ordered Current Medications Acetaminophen (Tylenol -) 650 mg PO Q6H PRN PRN Reason: fever Amlodipine Besylate (Norvasc -) 10 mg PO DAILY [facility] Last Admin: 07/29/19 11:42 Dose: 10 mg Carvedilol (Coreg -) 25 mg PO BID [facility]AD Last Admin: 07/29/19 22:30 Dose: 25 mg Clonidine HCl (Catapres Tts Patch -) 0.2 mg TD MCMULLEN [facility] Desmopressin Acetate (Ddavp Injection -) 18 mcg IVPB ONCE ONE Stop: 07/30/19 08:30 Pantoprazole Sodium (Protonix Iv) 40 mg IVPUSH DAILY [facility] Last Admin: 07/29/19 10:18 Dose: 40 mg Vital Signs Period Temp Pulse Resp BP Sys/Chiang Pulse Ox Last 24 Hr 97.6 F-98.3 F 59-76 8-20 106-184/42-61 100-100 Intake & Output 07/27/19 07/28/19 07/29/19 07/30/19 23:59 23:59 23:59 23:59 Intake Total 850 1200 Output Total 1500 Balance 850 -300 Weight 52.526 kg 53.388 kg 52.163 kg 54.703 kg Exam: Neuro: awake and confused to location and date HEENT: Right pupil reactive left non reactive, pt report not being able to see out of his left eye (old finding) Pulm: CTA CV: RRR Abd: SNTND Ext: WWP no edema CBC, BMP 07/30/19 01:00 07/29/19 05:10 ASSESSMENT AND PLAN: GI Bleed likely Lower Acute Blood Loss Anemia Recent Colonoscopy/Polypectomies CAD s/p CABG ESRD on HD HTN Hyperlipidemia - PRBC x2 overnight/AM - DDAVP and PLT given ESRD - frequent cbc - IV access, active type and screen - Normal transfusions thresholds: gaol Hgb >7.0 - Discuss w/ GI re: intervention - Protonix - HD per renal - NPO - cont ICU care given active bleeding Boerem ACNP Pulm/CCM
--- NOTE | 2019-07-30 09:07 | PN ---
Progress Note (short form) - Note Progress Note: pale had melena last night and today no abd pain Vital Signs - 24 hr 07/29/19 07/29/19 07/29/19 19:17 20:00 20:32 Temperature Pulse Rate 76 73 Respiratory 19 17 13 Rate Blood Pressure 146/48 L 143/54 L O2 Sat by Pulse 100 Oximetry (%) 07/29/19 07/29/19 07/29/19 21:47 22:38 23:00 Temperature 97.8 F Pulse Rate 71 69 72 Respiratory 17 19 19 Rate Blood Pressure 158/48 L 153/61 174/58 H O2 Sat by Pulse Oximetry (%) 07/29/19 07/30/19 07/30/19 23:11 00:00 00:17 Temperature Pulse Rate 67 59 L 62 Respiratory 13 15 20 Rate Blood Pressure 160/55 L 106/45 L 115/48 L O2 Sat by Pulse Oximetry (%) 07/30/19 07/30/19 07/30/19 01:05 02:00 04:00 Temperature 98.3 F Pulse Rate 61 67 67 Respiratory 11 20 14 Rate Blood Pressure 125/58 L 139/51 L 139/47 L O2 Sat by Pulse Oximetry (%) 07/30/19 07/30/19 07/30/19 04:30 04:45 05:00 Temperature 97.7 F Pulse Rate 64 65 65 Respiratory 9 L 14 8 L Rate Blood Pressure 128/45 L 132/46 L 135/46 L O2 Sat by Pulse Oximetry (%) 07/30/19 07/30/19 07/30/19 05:30 06:06 10:00 Temperature 97.7 F Pulse Rate 64 66 64 Respiratory 11 14 18 Rate Blood Pressure 128/42 L 150/56 L 175/56 H O2 Sat by Pulse Oximetry (%) Current Medications Generic Name Dose Route Start Last Admin Trade Name Freq PRN Reason Stop Dose Admin Acetaminophen 650 mg 07/27/19 11:53 Tylenol - PO Q6H PRN fever Amlodipine Besylate 10 mg 07/29/19 11:15 07/30/19 10:18 Norvasc - PO Not Given DAILY [facility] Carvedilol 25 mg 07/29/19 11:15 07/30/19 10:18 Coreg - PO Not Given BID [facility] Clonidine HCl 0.2 mg 07/30/19 11:02 07/30/19 12:00 Catapres Tts Patch - TD 0.2 mg [facility]AD Administration Lorazepam 1 mg 07/30/19 13:52 Ativan Injection - IVPUSH Q6H PRN ANXIETY Pantoprazole Sodium 40 mg 07/27/19 12:00 07/30/19 10:19 Protonix Iv IVPUSH 40 mg DAILY BRAD Administration Laboratory Results - last 24 hr 07/27/19 07/27/19 07/30/19 10:30 10:31 01:00 WBC 3.4 L RBC 2.39 L Hgb 7.4 L Hct 22.3 L D MCV 93.1 MCH 31.0 MCHC 33.3 RDW 14.9 Plt Count 150 MPV 9.4 Sodium Potassium Chloride Carbon Dioxide Anion Gap BUN Creatinine Est GFR (CKD-EPI)AfAm Est GFR (CKD-EPI)NonAf Random Glucose Calcium Phosphorus Magnesium Total Bilirubin AST ALT Alkaline Phosphatase Total Protein Albumin Blood Type A POSITIVE Antibody Screen Negative Crossmatch See Detail See Detail 07/30/19 07/30/19 07/30/19 03:00 09:00 09:00 WBC 5.3 RBC 2.56 L Hgb 8.0 L Hct 23.6 L MCV 92.2 MCH 31.1 MCHC 33.7 RDW 14.9 Plt Count 130 L MPV 9.9 Sodium 138 Potassium 4.9 Chloride 101 Carbon Dioxide 28 Anion Gap 9 BUN 60.8 H Creatinine 4.6 H Est GFR (CKD-EPI)AfAm 14.71 Est GFR (CKD-EPI)NonAf 12.69 Random Glucose 72 L Calcium 8.8 Phosphorus 5.2 H Magnesium 2.0 Total Bilirubin AST ALT Alkaline Phosphatase Total Protein Albumin Blood Type A POSITIVE Antibody Screen Negative Crossmatch See Detail 07/30/19 07/30/19 17:22 17:22 WBC 5.0 RBC 3.20 L Hgb 9.9 L Hct 29.0 L D MCV 90.8 MCH 31.0 MCHC 34.2 RDW 14.4 Plt Count 169 D MPV 8.9 D Sodium 142 Potassium 4.8 Chloride 102 Carbon Dioxide 27 Anion Gap 13 BUN 67.3 H Creatinine 4.8 H Est GFR (CKD-EPI)AfAm 13.97 Est GFR (CKD-EPI)NonAf 12.05 Random Glucose 69 L Calcium 8.8 Phosphorus Magnesium Total Bilirubin 1.3 H AST 30 ALT 19 Alkaline Phosphatase 146 H Total Protein 5.9 L Albumin 3.4 Blood Type Antibody Screen Crossmatch S1 S2 RRR Lungs clear Abd- soft, Nt No edema PLAN transfuse as needed spoke with SET UP AND LAY OUT INSPECTOR demonstrator sewing techniques GI follow up keep NPO protonix monitor Hb Problem List - Problems (1) Colonoscopy causing post-procedural bleeding Code(s): K91.840 - POSTPROC HEMOR OF A DGSTV SYS ORG FOL A DGSTV SYS PROCEDURE (2) GI hemorrhage Code(s): K92.2 - GASTROINTESTINAL HEMORRHAGE, UNSPECIFIED (3) Post-polypectomy bleeding Code(s): MMR5782 - (4) CAD (coronary artery disease) Code(s): I25.10 - ATHSCL HEART DISEASE OF [place] CORONARY ARTERY W/O ANG PCTRS Qualifiers: Coronary Disease-Associated Artery/Lesion type: [place] artery [place] vs. transplanted heart: [place] heart Associated angina: without angina Qualified Code(s): I25.10 - Atherosclerotic heart disease of [place] coronary artery without angina pectoris (5) ESRD (end stage renal disease) Code(s): N18.6 - END STAGE RENAL DISEASE (6) HTN (hypertension) Code(s): I10 - ESSENTIAL (PRIMARY) HYPERTENSION
[2019-07-30] MEDS ORDERED: LORazepam 2 MG/ML SDV VIAL IVPUSH ONE (09:53)
[2019-07-30 10:04] LABS: HEMATOCRIT 23.6 % (35.4-49); MCH 31.1 pg (25.7-33.7); MCHC 33.7 g/dl (32.0-35.9); MEAN CELL VOLUME 92.2 fl (80-96); MEAN PLT VOLUME 9.9 fl (7.5-11.1); PLATELET COUNT 130 K/MM3 (134-434); RBC 2.56 M/mm3 (4.00-5.60); RDW 14.9 % (11.9-15.9); WHITE BLOOD COUNT 5.3 K/mm3 (4.0-10.0)
[2019-07-30] MEDS: CARVEDILOL 25 MG TABLET (FP) PO SCH ×2 (10:18→21:23)
[2019-07-30] MEDS: amLODIPine BESYLATE 10 MG TABLET (FP) PO SCH (10:18)
[2019-07-30] MEDS: PANTOPRAZOLE SODIUM 40 MG VIAL IVPUSH SCH (10:19)
--- NOTE | 2019-07-30 10:33 | PN.GI ---
GI Progress Note Subjective: GI NOte ( covering Dr Gutiérrez): Sylvester began to bleed again last night and received a unit of PRBCs. He had melena last night but none so far today. No hematemesis. He is pulling out IVs and will not likely keep an NG tube down to allow for a bowel prep. - Objective Vital Signs: Vital Signs Temperature 97.7 F 07/30/19 05:00 Pulse Rate 66 07/30/19 06:06 Respiratory Rate 14 07/30/19 06:06 Blood Pressure 150/56 L 07/30/19 06:06 O2 Sat by Pulse Oximetry (%) 100 07/29/19 20:32 Laboratory Tests 07/29/19 07/30/19 07/30/19 05:10 01:00 09:00 Hgb 9.4 L 7.4 L 8.0 L Constitutional: Other (agitated, confused) ...Auscultate: Yes: Normoactive Bowel Sounds ...Palpate: Yes: Soft, Other (nontender) Labs: CBC, BMP 07/30/19 09:00 INR, PTT INR 1.00 (0.83-1.09) 07/27/19 10:30 Assessment/Plan Assessment: - Suspected persistent postpolypectomy bleeding Plan: - Transfuse platelets - NPO, if bleeding persists will do colonoscopy unprepped - Avoid anticoagulants - Serial CBCs Discussed with the nurse tipping machine operatorGustavo and our staff nurse Problem List - Problems (1) GI hemorrhage Code(s): K92.2 - GASTROINTESTINAL HEMORRHAGE, UNSPECIFIED (2) Post-polypectomy bleeding Code(s): DYA5927 - (3) Colonoscopy causing post-procedural bleeding Code(s): K91.840 - POSTPROC HEMOR OF A DGSTV SYS ORG FOL A DGSTV SYS PROCEDURE (4) ESRD (end stage renal disease) Code(s): N18.6 - END STAGE RENAL DISEASE (5) S/P CABG (coronary artery bypass graft) Code(s): Z95.1 - PRESENCE OF AORTOCORONARY BYPASS GRAFT
[2019-07-30 10:34] LABS: BLOOD UREA NITROGEN 60.8 mg/dL (7-18); CALCIUM 8.8 mg/dL (8.5-10.1); CREATININE 4.6 mg/dL (0.55-1.3); PHOSPHOROUS 5.2 mg/dL (2.5-4.9); POTASSIUM 4.9 mmol/L (3.5-5.1)
[2019-07-30] MEDS ORDERED: cloNIDine-TTS 0.2 MG/24 HOURS PATCH.TDWK TD SCH (11:02)
[2019-07-30] MEDS ORDERED: PT OWN MED DRAWER 7, Y5N ONE (13:14)
[2019-07-30 17:41] LABS: HEMOGLOBIN 9.9 GM/dL (11.7-16.9); MCHC 34.2 g/dl (32.0-35.9); MEAN CELL VOLUME 90.8 fl (80-96); MEAN PLT VOLUME 8.9 fl (7.5-11.1); PLATELET COUNT 169 K/MM3 (134-434); RDW 14.4 % (11.9-15.9)
[2019-07-30 18:05] LABS: ALBUMIN 3.4 g/dl (3.4-5.0); BILIRUBIN,TOTAL 1.3 mg/dL (0.2-1); BLOOD UREA NITROGEN 67.3 mg/dL (7-18); CALCIUM 8.8 mg/dL (8.5-10.1); CREATININE 4.8 mg/dL (0.55-1.3); POTASSIUM 4.8 mmol/L (3.5-5.1); TOT PROT 5.9 g/dl (6.4-8.2)
[2019-07-30] MEDS ORDERED: LORazepam 2 MG/ML SDV VIAL IVPUSH PRN (21:18)
[2019-07-30 21:44] LABS: HEMATOCRIT 29.7 % (35.4-49); HEMOGLOBIN 10.1 GM/dL (11.7-16.9); MCH 30.9 pg (25.7-33.7); MCHC 34.1 g/dl (32.0-35.9); MEAN CELL VOLUME 90.8 fl (80-96); MEAN PLT VOLUME 8.8 fl (7.5-11.1); PLATELET COUNT 179 K/MM3 (134-434); RBC 3.27 M/mm3 (4.00-5.60); RDW 14.8 % (11.9-15.9); WHITE BLOOD COUNT 4.8 K/mm3 (4.0-10.0)
[2019-07-31 06:35] LABS: BASO % 0.8 % (0-2.0); EOS % 10.7 % (0-4.5); HEMATOCRIT 29.2 % (35.4-49); HEMOGLOBIN 10.2 GM/dL (11.7-16.9); INR 0.95 (0.83-1.09); LYMPH % 21.5 % (8-40); MCH 31.3 pg (25.7-33.7); MCHC 34.8 g/dl (32.0-35.9); MEAN PLT VOLUME 8.9 fl (7.5-11.1); MONO % 12.1 % (3.8-10.2); NEUT % 54.9 % (42.8-82.8); PLATELET COUNT 171 K/MM3 (134-434); PROTHROMBIN TIME (PATIENT) 11.2 SEC (9.7-13.0); RBC 3.25 M/mm3 (4.00-5.60); RDW 14.6 % (11.9-15.9); RETICULOCYTES 0.48 % (0.5-1.5); WHITE BLOOD COUNT 4.9 K/mm3 (4.0-10.0)
[2019-07-31 06:37] LABS: ACTIVATED PTT 30.6 SECONDS (25.2-36.5)
[2019-07-31 06:56] LABS: ALBUMIN 3.4 g/dl (3.4-5.0); BILIRUBIN,TOTAL 0.9 mg/dL (0.2-1); BLOOD UREA NITROGEN 74.7 mg/dL (7-18); CALCIUM 8.6 mg/dL (8.5-10.1); CREATININE 5.5 mg/dL (0.55-1.3); PHOSPHOROUS 5.6 mg/dL (2.5-4.9); POTASSIUM 4.9 mmol/L (3.5-5.1); TOT PROT 6.1 g/dl (6.4-8.2)
--- NOTE | 2019-07-31 09:51 | PN ---
Progress Note (short form) - Note Progress Note: pt seen/ examined in icu today chart is reviewed/ events noted/discussed with RN. awake/ comfortable had Norma last night -- Vital Signs Temp 97.4 F L 07/31/19 06:00 Pulse 71 07/31/19 06:00 Resp 18 07/31/19 06:00 BP 181/56 H 07/31/19 06:00 Pulse Ox 100 07/30/19 23:49 Intake & Output 07/30/19 07/30/19 07/31/19 11:59 23:59 11:59 Intake Total 950 Balance 950 Weight 120 lb 9.6 oz 128 lb Intake: Packed Cells 700 Platelets 250 Other: Voiding Method Diaper # Unmeasured Voids Void 0 0 Bowel Movement Yes: 3 Yes # Bowel Movements 1 Weight Measurement Method Built in Bedscale Built in Bedscale Active Medications Acetaminophen (Tylenol -) 650 mg PO Q6H PRN PRN Reason: fever Amlodipine Besylate (Norvasc -) 10 mg PO DAILY [facility] Last Admin: 07/30/19 10:18 Dose: Not Given Carvedilol (Coreg -) 25 mg PO BID [facility] Last Admin: 07/30/19 21:23 Dose: Not Given Clonidine HCl (Catapres Tts Patch -) 0.2 mg TD [facility] Last Admin: 07/30/19 12:00 Dose: 0.2 mg Lorazepam (Ativan Injection -) 1 mg IVPUSH Q6H PRN PRN Reason: ANXIETY Last Admin: 07/30/19 21:24 Dose: 1 mg Pantoprazole Sodium (Protonix Iv) 40 mg IVPUSH DAILY [facility] Last Admin: 07/30/19 10:19 Dose: 40 mg CBC, BMP 07/31/19 05:55 07/31/19 05:55 Physical Exam S1 S2 RRR Lungs clear Abd- soft, Nt No edema PLAN Monitor closely in icu for bleeding transfuse as needed keep NPO for now protonix renal -- for diaysis following will follow gi following d/w RN and will discuss with icu team also Problem List - Problems (1) Colonoscopy causing post-procedural bleeding Code(s): K91.840 - POSTPROC HEMOR OF A DGSTV SYS ORG FOL A DGSTV SYS PROCEDURE (2) ESRD (end stage renal disease) Code(s): N18.6 - END STAGE RENAL DISEASE (3) S/P CABG (coronary artery bypass graft) Code(s): Z95.1 - PRESENCE OF AORTOCORONARY BYPASS GRAFT
[2019-07-31] MEDS: PANTOPRAZOLE SODIUM 40 MG VIAL IVPUSH SCH (11:00)
[2019-07-31] MEDS: CARVEDILOL 25 MG TABLET (FP) PO SCH ×2 (11:00→21:43)
[2019-07-31] MEDS: amLODIPine BESYLATE 10 MG TABLET (FP) PO SCH (11:00)
--- NOTE | 2019-07-31 12:50 | PN ---
Physical Exam: SUBJECTIVE: Patient seen and examined at bedside. melanotic BMs over weekend s/ p 3U PRBC. Patient is occasionally unusually agitated pulling out IVs and refused PO meds. Denies f/c/chestpain/sob, n/v, abd pain. OBJECTIVE: Vital Signs Period Temp Pulse Resp BP Sys/Chiang Pulse Ox Last 24 Hr 97.4 F-98.4 F 63-72 9-20 142-189/54-83 100-100 GEN: Sleeping, easily arousable and alert. Comfortable. HEENT: NC/AT. No facial asymmetry. Normal voice. Supple neck w/ FROM. CV: S1/S2, RRR, +murmur LUNG: CTAB, no wheezes, crackles, rales, rhonchi. GI: soft, ndnt, +BS, no guarding, no rebound. No masses. EXTREMITIES: 2+ distal pulses. No LE edema. No obvious deformities of all extremities. SKIN: warm, dry, normal turgor Laboratory Results - last 24 hr 07/27/19 07/30/19 07/30/19 10:30 17:22 17:22 WBC 5.0 RBC 3.20 L Hgb 9.9 L Hct 29.0 L D MCV 90.8 MCH 31.0 MCHC 34.2 RDW 14.4 Plt Count 169 D MPV 8.9 D Absolute Neuts (auto) Neutrophils % Lymphocytes % Monocytes % Eosinophils % Basophils % Nucleated RBC % Retic Count PT with INR INR PTT (Actin FS) Sodium 142 Potassium 4.8 Chloride 102 Carbon Dioxide 27 Anion Gap 13 BUN 67.3 H Creatinine 4.8 H Est GFR (CKD-EPI)AfAm 13.97 Est GFR (CKD-EPI)NonAf 12.05 Random Glucose 69 L Calcium 8.8 Phosphorus Magnesium Total Bilirubin 1.3 H AST 30 ALT 19 Alkaline Phosphatase 146 H Total Protein 5.9 L Albumin 3.4 Blood Type A POSITIVE Antibody Screen Negative Crossmatch See Detail 07/30/19 07/31/19 07/31/19 21:12 05:55 05:55 WBC 4.8 RBC 3.27 L Hgb 10.1 L Hct 29.7 L MCV 90.8 MCH 30.9 MCHC 34.1 RDW 14.8 Plt Count 179 MPV 8.8 Absolute Neuts (auto) Neutrophils % Lymphocytes % Monocytes % Eosinophils % Basophils % Nucleated RBC % Retic Count PT with INR 11.20 INR 0.95 PTT (Actin FS) 30.6 Sodium 144 Potassium 4.9 Chloride 102 Carbon Dioxide 26 Anion Gap 16 BUN 74.7 H Creatinine 5.5 H Est GFR (CKD-EPI)AfAm 11.85 Est GFR (CKD-EPI)NonAf 10.22 Random Glucose 58 L Calcium 8.6 Phosphorus 5.6 H Magnesium 2.0 Total Bilirubin 0.9 AST 25 ALT 19 Alkaline Phosphatase 144 H Total Protein 6.1 L Albumin 3.4 Blood Type Antibody Screen Crossmatch 07/31/19 05:55 WBC 4.9 RBC 3.25 L Hgb 10.2 L Hct 29.2 L MCV 90.0 MCH 31.3 MCHC 34.8 RDW 14.6 Plt Count 171 MPV 8.9 Absolute Neuts (auto) 2.7 Neutrophils % 54.9 Lymphocytes % 21.5 Monocytes % 12.1 H Eosinophils % 10.7 H Basophils % 0.8 Nucleated RBC % 0 Retic Count 0.48 L PT with INR INR PTT (Actin FS) Sodium Potassium Chloride Carbon Dioxide Anion Gap BUN Creatinine Est GFR (CKD-EPI)AfAm Est GFR (CKD-EPI)NonAf Random Glucose Calcium Phosphorus Magnesium Total Bilirubin AST ALT Alkaline Phosphatase Total Protein Albumin Blood Type Antibody Screen Crossmatch Active Medications Generic Name Dose Route Start Last Admin Trade Name Freq PRN Reason Stop Dose Admin Acetaminophen 650 mg 07/27/19 11:53 Tylenol - PO Q6H PRN fever Amlodipine Besylate 10 mg 07/29/19 11:15 07/31/19 11:00 Norvasc - PO 10 mg DAILY [facility]AD Administration Carvedilol 25 mg 07/29/19 11:15 07/31/19 11:00 Coreg - PO 25 mg BID BRAD Administration Clonidine HCl 0.2 mg 07/30/19 11:02 07/30/19 12:00 Catapres Tts Patch - TD 0.2 mg [facility] Administration Lorazepam 1 mg 07/30/19 21:18 07/30/19 21:24 Ativan Injection - IVPUSH 1 mg Q6H PRN Administration ANXIETY Pantoprazole Sodium 40 mg 07/27/19 12:00 07/31/19 11:00 Protonix Iv IVPUSH 40 mg DAILY BRAD Administration ASSESSMENT/PLAN: 64M PMH HTN, HLD, CAD s/p CABG, ESRD HD(//), DM, GERD, dysphagia admitted to ICU after presenting with active GI bleed. Had a colonscopy w/ polypectomy the day prior to admission. GI Bleed likely Lower Acute Blood Loss Anemia Recent Colonoscopy/Polypectomies CAD s/p CABG ESRD on HD HTN Hyperlipidemia Neuro - patient is occasionally agitated - refuses PO meds - pulls out IVs - soft restraints and ativan prn GI - likely LGIB; recent colonoscopy w/ polypectomy - recent bloody stool over weekend - s/p 3 units PRBC over weekend - H/H 10.2 < 10.1 < 7.4 - monitor CBC - Transfused as needed, goal Hgb > 8 - GI recs appreciated; please call us immediately if evidence of active GI bleeding CARD - HTN, HLD, CAD s/p CABG, acute blood loss anemia - telemetry - Pt refusing BP meds RENAL - ESRD HD(//) - HD completed today - Renal recs appreciated ENDO - DM - BGM, AISS FEN - monitor lytes, H/H - AM labs - Clear liquid diet, as tolerated PPX - SCD Visit type - Emergency Visit Emergency Visit: Yes ED Registration Date: 07/27/19 Care time: The patient presented to the Emergency Department on the above date and was hospitalized for further evaluation of their emergent condition. - New Patient This patient is new to me today: No - Critical Care Critical Care patient: Yes Total Critical Care Time (in minutes): 35 Critical Care Statement: The care of this patient involved high complexity decision making to prevent further life threatening deterioration of the patient 's condition and/or to evaluate & treat vital organ system(s) failure or risk of failure.
--- NOTE | 2019-07-31 12:56 | PN ---
Progress Note, Physician History of Present Illness: Pt seen and examined at bedside. He appears comfortable is calmer at the moment. - Current Medication List Current Medications: Active Medications Acetaminophen (Tylenol -) 650 mg PO Q6H PRN PRN Reason: fever Amlodipine Besylate (Norvasc -) 10 mg PO DAILY [facility] Last Admin: 07/31/19 11:00 Dose: 10 mg Carvedilol (Coreg -) 25 mg PO BID [facility] Last Admin: 07/31/19 11:00 Dose: 25 mg Clonidine HCl (Catapres Tts Patch -) 0.2 mg TD [facility] Last Admin: 07/30/19 12:00 Dose: 0.2 mg Lorazepam (Ativan Injection -) 1 mg IVPUSH Q6H PRN PRN Reason: ANXIETY Last Admin: 07/30/19 21:24 Dose: 1 mg Pantoprazole Sodium (Protonix Iv) 40 mg IVPUSH DAILY [facility] Last Admin: 07/31/19 11:00 Dose: 40 mg - Objective Vital Signs: Vital Signs Temperature 98.4 F 07/31/19 11:40 Pulse Rate 70 07/31/19 12:15 Respiratory Rate 18 07/31/19 12:15 Blood Pressure 173/60 H 07/31/19 12:15 O2 Sat by Pulse Oximetry (%) 100 07/31/19 10:00 Constitutional: Yes: Calm Eyes: Yes: Conjunctiva Clear HENT: Yes: Atraumatic Neck: Yes: Supple Cardiovascular: Yes: S1, S2 Respiratory: Yes: CTA Bilaterally Gastrointestinal: Yes: Soft Genitourinary: Yes: WNL Musculoskeletal: Yes: WNL Edema: No Neurological: Yes: Confusion Labs: CBC, BMP 07/31/19 05:55 07/31/19 05:55 INR, PTT INR 0.95 (0.83-1.09) 07/31/19 05:55 Assessment/Plan Current Medications Generic Name Dose Route Start Last Admin Trade Name Freq PRN Reason Stop Dose Admin Acetaminophen 650 mg 07/27/19 11:53 Tylenol - PO Q6H PRN fever Amlodipine Besylate 10 mg 07/29/19 11:15 07/31/19 11:00 Norvasc - PO 10 mg DAILY [facility] Administration Carvedilol 25 mg 07/29/19 11:15 07/31/19 11:00 Coreg - PO 25 mg BID [facility] Administration Clonidine HCl 0.2 mg 07/30/19 11:02 07/30/19 12:00 Catapres Tts Patch - TD 0.2 mg [facility] Administration Lorazepam 1 mg 07/30/19 21:18 07/30/19 21:24 Ativan Injection - IVPUSH 1 mg Q6H PRN Administration ANXIETY Pantoprazole Sodium 40 mg 07/27/19 12:00 07/31/19 11:00 Protonix Iv IVPUSH 40 mg DAILY [facility] Administration Impression 1. ESRD 2. GI bleed 3. dementia 4. dysphagia 5. anemia 6. CAD 7. hx CABG 8. DM 9. HLD Plan - HD today - anemia workup per primary team - GI follow up - renal diet - 2 k bath f180 3:30, abf 450
--- NOTE | 2019-07-31 13:10 | PN ---
Progress Note (short form) - Note Progress Note: GI f/u Patient seen and examined Denies blood in stool today Discussed in detail with nurse, one red bloody bm over night and one very small darker red bm this am, seems to be slowing RN had pt Sat and Sun as well, saw more bloody bm's over the weekend Received total of 3 units PRBC and 1 unit PLT on weekend Patient refusing bp meds Vital Signs Temp 98.4 F 07/31/19 11:40 Pulse 70 07/31/19 12:15 Resp 18 07/31/19 12:15 BP 173/60 H 07/31/19 12:15 Pulse Ox 100 07/31/19 10:00 NAD abdomen soft NT CBC, BMP 07/31/19 05:55 07/31/19 05:55 hgb did not respond appropriately to 3 units PRBC from weekend Impression: Seems more consistent with lower than upper GI bleeding. Hgb did not respond over weekend to blood, but now bleeding seems to be slowing and hemodynamically stable (despite refusing bp meds). For now, would closely observe. - clear liquid diet for now - trend hgb closely - please call us immediately if evidence of active GI bleeding
[2019-07-31] MEDS ORDERED: SODIUM CHLORIDE 250 ML IV PRN (14:13)
--- NOTE | 2019-07-31 14:21 | PN ---
Teaching Attending Note Name of Resident: Trey Martínez ATTENDING PHYSICIAN STATEMENT I saw and evaluated the patient. I reviewed the resident's note and discussed the case with the resident. I agree with the resident's findings and plan as documented. SUBJECTIVE: Patient seen and examined in the ICU. Agitated. Pulling out IV access. Intake & Output 07/28/19 07/29/19 07/30/19 07/31/19 23:59 23:59 23:59 23:59 Intake Total 1200 950 200 Output Total 1500 Balance -300 950 200 Weight 117 lb 11.2 oz 115 lb 120 lb 9.6 oz 128 lb Last Vital Signs Temp Pulse Resp BP Pulse Ox 98.4 F 71 18 145/107 H 100 07/31/19 11:40 07/31/19 13:45 07/31/19 13:45 07/31/19 13:45 07/31/19 10:00 Active Medications Acetaminophen (Tylenol -) 650 mg PO Q6H PRN PRN Reason: fever Amlodipine Besylate (Norvasc -) 10 mg PO DAILY [facility] Last Admin: 07/31/19 11:00 Dose: 10 mg Carvedilol (Coreg -) 25 mg PO BID [facility] Last Admin: 07/31/19 11:00 Dose: 25 mg Clonidine HCl (Catapres Tts Patch -) 0.2 mg TD [facility] Last Admin: 07/30/19 12:00 Dose: 0.2 mg Sodium Chloride (Normal Saline -) 250 mls @ 3,000 mls/hr IV PRN PRN PRN Reason: Hypotension during Dialysis Stop: 08/01/19 14:13 Lorazepam (Ativan Injection -) 1 mg IVPUSH Q6H PRN PRN Reason: ANXIETY Last Admin: 07/30/19 21:24 Dose: 1 mg Pantoprazole Sodium (Protonix Iv) 40 mg IVPUSH DAILY [facility] Last Admin: 07/31/19 11:00 Dose: 40 mg Gen: Awake and alert Heart: RRR Lung: decreased breath sounds at the bases Abd: soft, nontender Ext: no edema Laboratory Results - last 24 hr 07/27/19 07/30/19 07/30/19 10:30 17:22 17:22 WBC 5.0 RBC 3.20 L Hgb 9.9 L Hct 29.0 L D MCV 90.8 MCH 31.0 MCHC 34.2 RDW 14.4 Plt Count 169 D MPV 8.9 D Absolute Neuts (auto) Neutrophils % Lymphocytes % Monocytes % Eosinophils % Basophils % Nucleated RBC % Retic Count PT with INR INR PTT (Actin FS) Sodium 142 Potassium 4.8 Chloride 102 Carbon Dioxide 27 Anion Gap 13 BUN 67.3 H Creatinine 4.8 H Est GFR (CKD-EPI)AfAm 13.97 Est GFR (CKD-EPI)NonAf 12.05 Random Glucose 69 L Calcium 8.8 Phosphorus Magnesium Total Bilirubin 1.3 H AST 30 ALT 19 Alkaline Phosphatase 146 H Total Protein 5.9 L Albumin 3.4 Blood Type A POSITIVE Antibody Screen Negative Crossmatch See Detail 07/30/19 07/31/19 07/31/19 21:12 05:55 05:55 WBC 4.8 RBC 3.27 L Hgb 10.1 L Hct 29.7 L MCV 90.8 MCH 30.9 MCHC 34.1 RDW 14.8 Plt Count 179 MPV 8.8 Absolute Neuts (auto) Neutrophils % Lymphocytes % Monocytes % Eosinophils % Basophils % Nucleated RBC % Retic Count PT with INR 11.20 INR 0.95 PTT (Actin FS) 30.6 Sodium 144 Potassium 4.9 Chloride 102 Carbon Dioxide 26 Anion Gap 16 BUN 74.7 H Creatinine 5.5 H Est GFR (CKD-EPI)AfAm 11.85 Est GFR (CKD-EPI)NonAf 10.22 Random Glucose 58 L Calcium 8.6 Phosphorus 5.6 H Magnesium 2.0 Total Bilirubin 0.9 AST 25 ALT 19 Alkaline Phosphatase 144 H Total Protein 6.1 L Albumin 3.4 Blood Type Antibody Screen Crossmatch 07/31/19 05:55 WBC 4.9 RBC 3.25 L Hgb 10.2 L Hct 29.2 L MCV 90.0 MCH 31.3 MCHC 34.8 RDW 14.6 Plt Count 171 MPV 8.9 Absolute Neuts (auto) 2.7 Neutrophils % 54.9 Lymphocytes % 21.5 Monocytes % 12.1 H Eosinophils % 10.7 H Basophils % 0.8 Nucleated RBC % 0 Retic Count 0.48 L PT with INR INR PTT (Actin FS) Sodium Potassium Chloride Carbon Dioxide Anion Gap BUN Creatinine Est GFR (CKD-EPI)AfAm Est GFR (CKD-EPI)NonAf Random Glucose Calcium Phosphorus Magnesium Total Bilirubin AST ALT Alkaline Phosphatase Total Protein Albumin Blood Type Antibody Screen Crossmatch ASSESSMENT AND PLAN: GI Bleed likely Lower Acute Blood Loss Anemia Recent Colonoscopy/Polypectomies CAD s/p CABG ESRD on HD HTN Hyperlipidemia Normal transfusions thresholds Follow H/H Protonix HD per renal NPO for now For possible endoscopic evaluation if there is a re-bleed Dr Dunn
--- NOTE | 2019-07-31 16:13 | CONSULT ---
Admitting History and Physical - Admission History of Present Illness: 64M PMH HTN, HLD, CAD s/p CABG, ESRD HD(T/R/Sa), DM, GERD, dysphagia admitted to ICU after presenting with active GI bleed. Had a colonscopy w/ polypectomy the day prior to admission. Selected Entries 07/30/19 07/30/19 07/30/19 02:00 05:00 10:00 Supper Temperature 98.3 F 97.7 F 97.7 F 07/30/19 07/30/19 07/30/19 12:00 14:00 18:00 Supper Temperature 98.2 F 97.6 F 98 F 07/30/19 07/30/19 07/31/19 22:00 23:25 02:00 Supper NPO Temperature 97.7 F 97.5 F L 07/31/19 07/31/19 07/31/19 06:00 10:00 11:40 Supper Temperature 97.4 F L 98.4 F 98.4 F Laboratory Tests 07/30/19 07/31/19 01:00 05:55 WBC 3.4 L 4.9 Pt with dx of Dysphagia from [place]. Reg NCS diet/chopped meat/ Nepro. This is my first consult with this pt. History Source: Medical Record Limitations to Obtaining History: Clinical Condition - Past Medical History Cardiovascular: Yes: CAD (s/p CABG), HTN, Hyperlipdemia Gastrointestinal: Yes: Constipation Renal/: Yes: Renal Failure, Hemodialysis Heme/Onc: Yes: Anemia - Past Surgical History Past Surgical History: Yes: CABG - Smoking History Smoking history: Unknown if ever smoked Have you smoked in the past 12 months: No Aproximately how many cigarettes per day: 0 - Alcohol/Substance Use Hx Alcohol Use: No - Social History ADL: Support Services History - Admission Reason For Visit: GASTROINTESTINAL BLEEDING; HOMORRHAGE COLON - General Mental Status: Awake and Alert, Confused (attempting to sit up/climb.) - Hearing Hearing: Normal Hearing Aide: No With Patient: No Speech Evaluation - Communication Primary Language: LIBER[place] Communication: Yes: Simple Responses - Speech Characteristics Voice Loudness: Mildly Soft/Quiet Voice Pitch: Yes: Normal - Swallow Evaluation/Bedside Assessment Current Nutritional Intake: Clear Liquids Oral Secretions: Yes: WFL Dentition: Yes: Edentulous Facial Symmetry at Rest: Symmetrical Lingual Movement: Symmetric Timing of Swallow: WFL Coughing/Throat Clear: No (3 oz water test (-)) Recommendations - Speech Evaluation, Impression/Plan Impression: 3 oz water test (-) Confused. - Dysphagia Impressions/Plan *Silent aspiration: cannot be R/O at bedside - Recommendations Diet Consistency: Other (Concur with clear liquids ordered. GI bleed. Tolerates thin liquids.)
[2019-08-01 08:50] LABS: ALBUMIN 3.3 g/dl (3.4-5.0); BASO % 0.4 % (0-2.0); BILIRUBIN,TOTAL 0.9 mg/dL (0.2-1); BLOOD UREA NITROGEN 28.3 mg/dL (7-18); CALCIUM 8.6 mg/dL (8.5-10.1); CREATININE 3.3 mg/dL (0.55-1.3); EOS % 9.4 % (0-4.5); HEMATOCRIT 26.2 % (35.4-49); HEMOGLOBIN 9.1 GM/dL (11.7-16.9); LYMPH % 19.3 % (8-40); MCH 31.7 pg (25.7-33.7); MCHC 34.7 g/dl (32.0-35.9); MEAN CELL VOLUME 91.6 fl (80-96); MEAN PLT VOLUME 8.5 fl (7.5-11.1); MONO % 13.2 % (3.8-10.2); NEUT % 57.7 % (42.8-82.8); PLATELET COUNT 153 K/MM3 (134-434); POTASSIUM 3.7 mmol/L (3.5-5.1); RBC 2.86 M/mm3 (4.00-5.60); RDW 14.5 % (11.9-15.9); TOT PROT 6.1 g/dl (6.4-8.2); WHITE BLOOD COUNT 4.4 K/mm3 (4.0-10.0)
[2019-08-01] MEDS: CARVEDILOL 25 MG TABLET (FP) PO SCH ×2 (09:33→21:59)
[2019-08-01] MEDS: amLODIPine BESYLATE 10 MG TABLET (FP) PO SCH (09:33)
[2019-08-01] MEDS: PANTOPRAZOLE SODIUM 40 MG VIAL IVPUSH SCH (09:33)
--- NOTE | 2019-08-01 10:30 | PN ---
Progress Note (short form) - Note Progress Note: no distress no bleeding so far tolerating clears Vital Signs - 24 hr 07/31/19 07/31/19 07/31/19 11:40 11:45 12:00 Temperature 98.4 F 98 F Pulse Rate 72 72 73 Respiratory 18 18 14 Rate Blood Pressure 187/59 H 186/68 H 186/60 H O2 Sat by Pulse Oximetry (%) 07/31/19 07/31/19 07/31/19 12:15 12:45 13:15 Temperature Pulse Rate 70 65 63 Respiratory 18 18 18 Rate Blood Pressure 173/60 H 159/53 L 160/53 L O2 Sat by Pulse Oximetry (%) 07/31/19 07/31/19 07/31/19 13:45 14:00 14:15 Temperature Pulse Rate 71 68 78 Respiratory 18 11 18 Rate Blood Pressure 145/107 H 153/50 L 153/56 L O2 Sat by Pulse Oximetry (%) 07/31/19 07/31/19 07/31/19 14:45 15:15 15:20 Temperature Pulse Rate 70 71 71 Respiratory 18 18 18 Rate Blood Pressure 165/53 L 162/58 L 164/56 L O2 Sat by Pulse Oximetry (%) 07/31/19 07/31/19 07/31/19 16:00 18:00 20:00 Temperature 98.2 F Pulse Rate 79 75 72 Respiratory 21 H 22 H 10 Rate Blood Pressure 147/43 L 156/49 L 159/56 L O2 Sat by Pulse Oximetry (%) 07/31/19 07/31/19 08/01/19 20:57 22:00 00:00 Temperature 98.4 F Pulse Rate 68 69 Respiratory 13 12 Rate Blood Pressure 158/65 158/53 L O2 Sat by Pulse 100 Oximetry (%) 08/01/19 08/01/19 08/01/19 02:00 04:00 06:00 Temperature 98.2 F 98.2 F Pulse Rate 67 71 70 Respiratory 21 H 16 15 Rate Blood Pressure 161/53 L 163/57 L 162/58 L O2 Sat by Pulse Oximetry (%) 08/01/19 08:00 Temperature Pulse Rate 75 Respiratory 19 Rate Blood Pressure 170/56 L O2 Sat by Pulse Oximetry (%) Current Medications Generic Name Dose Route Start Last Admin Trade Name Freq PRN Reason Stop Dose Admin Acetaminophen 650 mg 07/27/19 11:53 Tylenol - PO Q6H PRN fever Amlodipine Besylate 10 mg 07/29/19 11:15 08/01/19 09:33 Norvasc - PO 10 mg DAILY BRAD Administration Carvedilol 25 mg 07/29/19 11:15 08/01/19 09:33 Coreg - PO 25 mg BID BRAD Administration Clonidine HCl 0.2 mg 07/30/19 11:02 07/30/19 12:00 Catapres Tts Patch - TD 0.2 mg MCMULLEN [facility]AD Administration Sodium Chloride 250 mls @ 3,000 mls/hr 07/31/19 14:13 Normal Saline - IV 08/01/19 14:13 PRN PRN Hypotension during Dialysis Lorazepam 1 mg 07/30/19 21:18 07/30/19 21:24 Ativan Injection - IVPUSH 1 mg Q6H PRN Administration ANXIETY Pantoprazole Sodium 40 mg 07/27/19 12:00 08/01/19 09:33 Protonix Iv IVPUSH 40 mg DAILY BRAD Administration Laboratory Results - last 24 hr 08/01/19 08/01/19 08:00 08:00 WBC 4.4 RBC 2.86 L Hgb 9.1 L Hct 26.2 L MCV 91.6 MCH 31.7 MCHC 34.7 RDW 14.5 Plt Count 153 MPV 8.5 Absolute Neuts (auto) 2.5 Neutrophils % 57.7 Lymphocytes % 19.3 Monocytes % 13.2 H Eosinophils % 9.4 H Basophils % 0.4 Nucleated RBC % 0 Sodium 142 Potassium 3.7 Chloride 100 Carbon Dioxide 31 Anion Gap 11 BUN 28.3 H Creatinine 3.3 H Est GFR (CKD-EPI)AfAm 21.98 Est GFR (CKD-EPI)NonAf 18.96 Random Glucose 74 Calcium 8.6 Magnesium 2.0 Total Bilirubin 0.9 AST 29 ALT 19 Alkaline Phosphatase 149 H Total Protein 6.1 L Albumin 3.3 L S1 S2 RRR Lungs clear Abd- soft, Nt No edema PLAN transfuse as needed Hb stable no bleeding so far adjust BP meds continue with meds clears for now per GI Problem List - Problems (1) Colonoscopy causing post-procedural bleeding Code(s): K91.840 - POSTPROC HEMOR OF A DGSTV SYS ORG FOL A DGSTV SYS PROCEDURE (2) GI hemorrhage Code(s): K92.2 - GASTROINTESTINAL HEMORRHAGE, UNSPECIFIED (3) Post-polypectomy bleeding Code(s): TZW2241 - (4) CAD (coronary artery disease) Code(s): I25.10 - ATHSCL HEART DISEASE OF [place] CORONARY ARTERY W/O ANG PCTRS Qualifiers: Coronary Disease-Associated Artery/Lesion type: three affiliated artery [place] vs. transplanted heart: three affiliated heart Associated angina: without angina Qualified Code(s): I25.10 - Atherosclerotic heart disease of [place] coronary artery without angina pectoris (5) ESRD (end stage renal disease) Code(s): N18.6 - END STAGE RENAL DISEASE (6) HTN (hypertension) Code(s): I10 - ESSENTIAL (PRIMARY) HYPERTENSION
--- NOTE | 2019-08-01 12:50 | PN.GI ---
GI Progress Note Subjective: passage of scant red blood last night Patient denies any focal GI complaints - Objective Vital Signs: Vital Signs Temperature 98.2 F 08/01/19 06:00 Pulse Rate 75 08/01/19 08:00 Respiratory Rate 19 08/01/19 08:00 Blood Pressure 170/56 L 08/01/19 08:00 O2 Sat by Pulse Oximetry (%) 100 07/31/19 20:57 Constitutional: Calm Eyes: No: Sclera Icterus Cardiovascular: Yes: Regular Rate and Rhythm Respiratory: Yes: CTA Bilaterally Gastrointestinal Inspection: No: Distention ...Auscultate: Yes: Normoactive Bowel Sounds ...Palpate: Yes: Soft. No: Hepatomegaly, Splenomegaly, Tenderness ...Rectal Exam: Yes: Other (No external lesions, Dark red blood in rectal vault mixed with stool) Edema: No (No LE edema) Neurological: Yes: Alert Labs: CBC, BMP 08/01/19 08:00 08/01/19 08:00 INR, PTT INR 0.95 (0.83-1.09) 07/31/19 05:55 Problem List - Problems (1) GI hemorrhage Assessment/Plan: Suspect post polypectomy bleed. Mr. White remains hemodynamicall stable. To further evaluate his episode of rectal bleeding, I discussed colonoscopy and posisble upper endoscopy with his daughter Piedad via telephone today ). Dayami Vidal, sound recording technician, acted as Wagon Drill Operator as Piedad speaks only Portuguese. We also reviewed findings from 07/25 colonoscopy and that he will need continued surveillance given his history of colon polyps. We discussed potential risks of the procedures like but not limited to bleeding, perforation requiring surgery to repair, infection, sedation medication effects all of which could be potentially life threatening. She has agreed to the procedures. Bowel prep this afternoon for colonoscopy 08/02. Monitor H/H and for active bleeding. 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 Recently treated for Strongyloides Ab + Code(s): K92.2 - GASTROINTESTINAL HEMORRHAGE, UNSPECIFIED Qualifiers: GI bleed type/associated pathology: anorectal hemorrhage Qualified Code(s) : K62.5 - Hemorrhage of anus and rectum
--- NOTE | 2019-08-01 13:24 | PN ---
Progress Note, Physician History of Present Illness: Pt seen and examined at bedside. He appears comfortable. He denies shortness of breath. - Current Medication List Current Medications: Active Medications Acetaminophen (Tylenol -) 650 mg PO Q6H PRN PRN Reason: fever Amlodipine Besylate (Norvasc -) 10 mg PO DAILY [facility] Last Admin: 08/01/19 09:33 Dose: 10 mg Bisacodyl (Dulcolax -) 20 mg PO ONCE ONE Stop: 08/01/19 15:01 Carvedilol (Coreg -) 25 mg PO BID [facility] Last Admin: 08/01/19 09:33 Dose: 25 mg Clonidine HCl (Catapres Tts Patch -) 0.2 mg TD MCMULLEN [facility] Last Admin: 07/30/19 12:00 Dose: 0.2 mg Sodium Chloride (Normal Saline -) 250 mls @ 3,000 mls/hr IV PRN PRN PRN Reason: Hypotension during Dialysis Stop: 08/01/19 14:13 Lorazepam (Ativan Injection -) 1 mg IVPUSH Q6H PRN PRN Reason: ANXIETY Last Admin: 07/30/19 21:24 Dose: 1 mg Pantoprazole Sodium (Protonix Iv) 40 mg IVPUSH DAILY [facility] Last Admin: 08/01/19 09:33 Dose: 40 mg Polyethylene Glycol/Electrolytes (Golytely Solution -) 4,000 ml PO ONCE ONE Stop: 08/01/19 16:01 - Objective Vital Signs: Vital Signs Temperature 98.2 F 08/01/19 06:00 Pulse Rate 75 08/01/19 08:00 Respiratory Rate 19 08/01/19 08:00 Blood Pressure 170/56 L 08/01/19 08:00 O2 Sat by Pulse Oximetry (%) 100 07/31/19 20:57 Constitutional: Yes: Anxious Eyes: Yes: Conjunctiva Clear HENT: Yes: Atraumatic Cardiovascular: Yes: S1, S2 Respiratory: Yes: CTA Bilaterally Gastrointestinal: Yes: Soft Genitourinary: Yes: WNL Musculoskeletal: Yes: WNL Edema: No Neurological: Yes: Confusion Psychiatric: Yes: Agitated Labs: CBC, BMP 08/01/19 08:00 08/01/19 08:00 INR, PTT INR 0.95 (0.83-1.09) 07/31/19 05:55 Assessment/Plan Current Medications Generic Name Dose Route Start Last Admin Trade Name Disha PRN Reason Stop Dose Admin Acetaminophen 650 mg 07/27/19 11:53 Tylenol - PO Q6H PRN fever Amlodipine Besylate 10 mg 07/29/19 11:15 08/01/19 09:33 Norvasc - PO 10 mg DAILY BRAD Administration Bisacodyl 20 mg 08/01/19 15:00 Dulcolax - PO 08/01/19 15:01 ONCE ONE Carvedilol 25 mg 07/29/19 11:15 08/01/19 09:33 Coreg - PO 25 mg BID BRAD Administration Clonidine HCl 0.2 mg 07/30/19 11:02 07/30/19 12:00 Catapres Tts Patch - TD 0.2 mg MCMULLEN [facility] Administration Sodium Chloride 250 mls @ 3,000 mls/hr 07/31/19 14:13 Normal Saline - IV 08/01/19 14:13 PRN PRN Hypotension during Dialysis Lorazepam 1 mg 07/30/19 21:18 07/30/19 21:24 Ativan Injection - IVPUSH 1 mg Q6H PRN Administration ANXIETY Pantoprazole Sodium 40 mg 07/27/19 12:00 08/01/19 09:33 Protonix Iv IVPUSH 40 mg DAILY BRAD Administration Polyethylene Glycol/Electrolytes 4,000 ml 08/01/19 16:00 Golytely Solution - PO 08/01/19 16:01 ONCE ONE Impression 1. ESRD 2. GI bleed 3. dementia 4. dysphagia 5. anemia 6. CAD 7. hx CABG 8. DM 9. HLD Plan - HD tomorrow - pt agitated which may contribute to elevated bp, can add hydralazine if persistently elevated - will give epogen with HD - anemia workup per primary team - GI follow up - renal diet - 2 k bath f180 3:30, abf 450
--- NOTE | 2019-08-01 13:32 | PN ---
Teaching Attending Note Name of Resident: Theodore Gregory ATTENDING PHYSICIAN STATEMENT I saw and evaluated the patient. I reviewed the resident's note and discussed the case with the resident. I agree with the resident's findings and plan as documented. SUBJECTIVE: Patient seen and examined in the ICU. Less agitated. Denies CP or SOB. No occult bleeding reported. Intake & Output 07/29/19 07/30/19 07/31/19 08/01/19 23:59 23:59 23:59 23:59 Intake Total 950 600 50 Output Total 1600 Balance 950 -1000 50 Weight 115 lb 120 lb 9.6 oz 128 lb 128 lb 1.6 oz Last Vital Signs Temp Pulse Resp BP Pulse Ox 98.2 F 75 19 170/56 L 100 08/01/19 06:00 08/01/19 08:00 08/01/19 08:00 08/01/19 08:00 07/31/19 20:57 Active Medications Acetaminophen (Tylenol -) 650 mg PO Q6H PRN PRN Reason: fever Amlodipine Besylate (Norvasc -) 10 mg PO DAILY [facility] Last Admin: 08/01/19 09:33 Dose: 10 mg Bisacodyl (Dulcolax -) 20 mg PO ONCE ONE Stop: 08/01/19 15:01 Carvedilol (Coreg -) 25 mg PO BID [facility] Last Admin: 08/01/19 09:33 Dose: 25 mg Clonidine HCl (Catapres Tts Patch -) 0.2 mg TD MCMULLEN [facility] Last Admin: 07/30/19 12:00 Dose: 0.2 mg Epoetin Reed (Epogen -) 5,000 unit IVPUSH ONCE ONE Stop: 08/02/19 13:25 Sodium Chloride (Normal Saline -) 250 mls @ 3,000 mls/hr IV PRN PRN PRN Reason: Hypotension during Dialysis Stop: 08/01/19 14:13 Sodium Chloride (Normal Saline -) 250 mls @ 3,000 mls/hr IV PRN PRN PRN Reason: Hypotension during Dialysis Stop: 08/02/19 13:24 Lorazepam (Ativan Injection -) 1 mg IVPUSH Q6H PRN PRN Reason: ANXIETY Last Admin: 07/30/19 21:24 Dose: 1 mg Pantoprazole Sodium (Protonix Iv) 40 mg IVPUSH DAILY [facility] Last Admin: 08/01/19 09:33 Dose: 40 mg Polyethylene Glycol/Electrolytes (Golytely Solution -) 4,000 ml PO ONCE ONE Stop: 08/01/19 16:01 Gen: Awake and alert Heart: RRR Lung: decreased breath sounds at the bases Abd: soft, nontender Ext: no edema Laboratory Results - last 24 hr 08/01/19 08/01/19 08:00 08:00 WBC 4.4 RBC 2.86 L Hgb 9.1 L Hct 26.2 L MCV 91.6 MCH 31.7 MCHC 34.7 RDW 14.5 Plt Count 153 MPV 8.5 Absolute Neuts (auto) 2.5 Neutrophils % 57.7 Lymphocytes % 19.3 Monocytes % 13.2 H Eosinophils % 9.4 H Basophils % 0.4 Nucleated RBC % 0 Sodium 142 Potassium 3.7 Chloride 100 Carbon Dioxide 31 Anion Gap 11 BUN 28.3 H Creatinine 3.3 H Est GFR (CKD-EPI)AfAm 21.98 Est GFR (CKD-EPI)NonAf 18.96 Random Glucose 74 Calcium 8.6 Magnesium 2.0 Total Bilirubin 0.9 AST 29 ALT 19 Alkaline Phosphatase 149 H Total Protein 6.1 L Albumin 3.3 L ASSESSMENT AND PLAN: GI Bleed: suspected post-polypectomy Acute Blood Loss Anemia Recent Colonoscopy/Polypectomies CAD s/p CABG ESRD on HD HTN Hyperlipidemia For bowel prep and Endoscopic evaluation tomorrow Normal transfusions thresholds Protonix HD per renal O2 as needed Dr Dunn
[2019-08-01] MEDS ORDERED: BISACODYL 5 MG TABLET.DR (FP) PO ONE ×2 (15:00→16:30)
[2019-08-01 15:44] VITALS: BMI 23.3
[2019-08-01] MEDS ORDERED: PEG 3350/NA SULF BICARB CL/KCL 4000 ML SOLN.RECON PO ONE (16:00)
--- NOTE | 2019-08-01 16:15 | PN ---
Physical Exam: SUBJECTIVE: Patient seen and examined at bedside. No acute events. Pt endorses to 1 mth hx of vision loss in left eye. No acute signs of blood loss. OBJECTIVE: Vital Signs Period Temp Pulse Resp BP Sys/Chiang Pulse Ox Last 24 Hr 98.2 F-98.4 F 66-75 10- 137-172/49-82 100 GENERAL: The patient is awake, alert, and fully oriented, less agitated, restraints still in place b/l U.E.'s. HEAD: Normal with no signs of trauma. Eyes: yellowish floater like lesion in eye, impaired vision on left side, NECK: supple. LUNGS: Breath sounds equal, clear to auscultation bilaterally, no wheezes, no crackles, no accessory muscle use. HEART: Regular rate and rhythm, S1, S2 without murmur, rub or gallop. ABDOMEN: Soft, nontender, nondistended, normoactive bowel sounds, no guarding, no rebound. EXTREMITIES: 2+ pulses, warm, well-perfused, no edema. PSYCH: Normal mood, normal affect. SKIN: Warm, dry, no rashes or lesions noted Laboratory Results - last 24 hr 08/01/19 08/01/19 08:00 08:00 WBC 4.4 RBC 2.86 L Hgb 9.1 L Hct 26.2 L MCV 91.6 MCH 31.7 MCHC 34.7 RDW 14.5 Plt Count 153 MPV 8.5 Absolute Neuts (auto) 2.5 Neutrophils % 57.7 Lymphocytes % 19.3 Monocytes % 13.2 H Eosinophils % 9.4 H Basophils % 0.4 Nucleated RBC % 0 Sodium 142 Potassium 3.7 Chloride 100 Carbon Dioxide 31 Anion Gap 11 BUN 28.3 H Creatinine 3.3 H Est GFR (CKD-EPI)AfAm 21.98 Est GFR (CKD-EPI)NonAf 18.96 Random Glucose 74 Calcium 8.6 Magnesium 2.0 Total Bilirubin 0.9 AST 29 ALT 19 Alkaline Phosphatase 149 H Total Protein 6.1 L Albumin 3.3 L Active Medications Generic Name Dose Route Start Last Admin Trade Name Freq PRN Reason Stop Dose Admin Acetaminophen 650 mg 07/27/19 11:53 Tylenol - PO Q6H PRN fever Amlodipine Besylate 10 mg 07/29/19 11:15 08/01/19 09:33 Norvasc - PO 10 mg DAILY BRAD Administration Carvedilol 25 mg 07/29/19 11:15 08/01/19 09:33 Coreg - PO 25 mg BID BRAD Administration Clonidine HCl 0.2 mg 07/30/19 11:02 07/30/19 12:00 Catapres Tts Patch - TD 0.2 mg MCMULLEN [facility] Administration Epoetin Reed 5,000 unit 08/02/19 13:24 Epogen - IVPUSH 08/02/19 13:25 ONCE ONE Sodium Chloride 250 mls @ 3,000 mls/hr 08/01/19 13:24 Normal Saline - IV 08/02/19 13:24 PRN PRN Hypotension during Dialysis Lorazepam 1 mg 07/30/19 21:18 07/30/19 21:24 Ativan Injection - IVPUSH 1 mg Q6H PRN Administration ANXIETY Pantoprazole Sodium 40 mg 07/27/19 12:00 08/01/19 09:33 Protonix Iv IVPUSH 40 mg DAILY BRAD Administration ASSESSMENT/PLAN: 64M PMH HTN, HLD, CAD s/p CABG, ESRD HD(//), DM, GERD, dysphagia admitted to ICU after presenting with active GI bleed. Had a colonscopy w/ polypectomy the day prior to admission. Neuro - patient is occasionally agitated - refuses PO meds - pulls out IVs - soft restraints and ativan prn GI -> likely LGIB - recent colonoscopy w/ polypectomy - recent melena over weekend - s/p 3 units PRBC over weekend - H/H 9.1 today - monitor CBC - Transfused as needed, goal Hgb > 8 - GI recs appreciated from Dr. Mendez - BUN elevated can be due to upper GI bleed, but will assess tm. - Given bowel prep for colonoscopy and will undergo endoscopy evaluation tomorrow - Normal transfusions thresholds - Protonix CARD - HTN, HLD, CAD s/p CABG, acute blood loss anemia - telemetry - Pt refusing BP meds - O2 as needed - epogen per renal RENAL - ESRD HD(/) - HD completed yesterday - Renal recs appreciated ENDO - DM - BGM, AISS FEN - monitor lytes, H/H - AM labs - Clear liquid diet, as tolerated PPX - SCD Visit type - Emergency Visit Emergency Visit: Yes ED Registration Date: 07/27/19 Care time: The patient presented to the Emergency Department on the above date and was hospitalized for further evaluation of their emergent condition. - New Patient This patient is new to me today: Yes Date on this admission: 08/01/19 - Critical Care Critical Care patient: Yes Total Critical Care Time (in minutes): 35 Critical Care Statement: The care of this patient involved high complexity decision making to prevent further life threatening deterioration of the patient 's condition and/or to evaluate & treat vital organ system(s) failure or risk of failure. - Discharge Referral Referred to [facility] No
[2019-08-01] MEDS ORDERED: ACETAMINOPHEN 325 MG TABLET (FP) PO PRN (21:57)
--- NOTE | 2019-08-01 22:54 | PN ---
Progress Note (short form) - Note Progress Note: Pt with large amount of melena approx 500cc. had been receiving golytely prep, however d/c at 8:30PM per GI recs. Pt currently hemodynamically stable w/o complaint. D/w GI; if Hb ~ 8 will give 1 U PRBCs, if drops further, will give PRBCs and 1 U platelets which pt with good previous response. Stormy Martinez MD PGY-3 ICU team
[2019-08-01 23:43] LABS: BASO % 0.5 % (0-2.0); HEMATOCRIT 25.2 % (35.4-49); HEMOGLOBIN 8.5 GM/dL (11.7-16.9); LYMPH % 21.9 % (8-40); MCH 30.9 pg (25.7-33.7); MCHC 33.7 g/dl (32.0-35.9); MEAN CELL VOLUME 91.6 fl (80-96); MEAN PLT VOLUME 8.6 fl (7.5-11.1); MONO % 14.5 % (3.8-10.2); NEUT % 55.1 % (42.8-82.8); PLATELET COUNT 159 K/MM3 (134-434); RBC 2.75 M/mm3 (4.00-5.60); RDW 14.5 % (11.9-15.9); WHITE BLOOD COUNT 3.8 K/mm3 (4.0-10.0)
[2019-08-02] MEDS ORDERED: DEXTROSE 5%-LACTATED RINGERS 1,000 ML IV SCH ×2 (04:00→04:01)
[2019-08-02 04:02] LABS: BASO % 0.6 % (0-2.0); EOS % 7.3 % (0-4.5); HEMATOCRIT 29.5 % (35.4-49); LYMPH % 22.3 % (8-40); MCH 30.5 pg (25.7-33.7); MCHC 33.9 g/dl (32.0-35.9); MEAN PLT VOLUME 8.5 fl (7.5-11.1); MONO % 13.6 % (3.8-10.2); NEUT % 56.2 % (42.8-82.8); PLATELET COUNT 158 K/MM3 (134-434); RBC 3.28 M/mm3 (4.00-5.60); RDW 14.4 % (11.9-15.9); WHITE BLOOD COUNT 4.3 K/mm3 (4.0-10.0)
[2019-08-02 07:57] LABS: HEMATOCRIT 26.4 % (35.4-49); HEMOGLOBIN 9.4 GM/dL (11.7-16.9); MCH 31.6 pg (25.7-33.7); MCHC 35.6 g/dl (32.0-35.9); MEAN CELL VOLUME 88.9 fl (80-96); MEAN PLT VOLUME 8.6 fl (7.5-11.1); PLATELET COUNT 157 K/MM3 (134-434); RBC 2.97 M/mm3 (4.00-5.60); RDW 14.6 % (11.9-15.9); WHITE BLOOD COUNT 4.4 K/mm3 (4.0-10.0)
[2019-08-02] MEDS ORDERED: EPOETIN ALFA 3,000 UNIT, EPOETIN ALFA 2,000 UNIT IVPUSH ONE (08:00)
[2019-08-02] MEDS ORDERED: SODIUM CHLORIDE 250 ML IV PRN (08:00)
[2019-08-02 08:11] LABS: ALBUMIN 3.2 g/dl (3.4-5.0); BILIRUBIN,TOTAL 1.1 mg/dL (0.2-1); BLOOD UREA NITROGEN 33.6 mg/dL (7-18); CALCIUM 8.7 mg/dL (8.5-10.1); CREATININE 4.4 mg/dL (0.55-1.3); POTASSIUM 3.5 mmol/L (3.5-5.1); TOT PROT 5.6 g/dl (6.4-8.2)
[2019-08-02] MEDS: CARVEDILOL 25 MG TABLET (FP) PO SCH ×3 (08:38→21:03)
[2019-08-02] MEDS: amLODIPine BESYLATE 10 MG TABLET (FP) PO SCH ×2 (08:41→11:47)
--- NOTE | 2019-08-02 09:36 | PN ---
Progress Note (short form) - Note Progress Note: no distress no bleeding so far Vital Signs - 24 hr 08/01/19 08/01/19 08/01/19 12:00 14:00 16:00 Temperature 98.4 F Pulse Rate 70 66 68 Respiratory 16 16 16 Rate Blood Pressure 150/53 L 137/49 L 168/82 O2 Sat by Pulse Oximetry (%) 08/01/19 08/01/19 08/01/19 18:00 20:00 22:00 Temperature 98 F Pulse Rate 64 63 64 Respiratory 17 11 14 Rate Blood Pressure 135/51 L 136/50 L 142/51 L O2 Sat by Pulse 94 L Oximetry (%) 08/02/19 08/02/19 08/02/19 00:00 00:45 01:05 Temperature 98 F 98 F 98.3 F Pulse Rate 60 60 61 Respiratory 10 12 14 Rate Blood Pressure 138/55 L 148/55 L 141/55 L O2 Sat by Pulse 95 94 L Oximetry (%) 08/02/19 08/02/19 08/02/19 02:00 03:45 04:00 Temperature 97.9 F 97.9 F Pulse Rate 60 60 60 Respiratory 10 11 11 Rate Blood Pressure 142/62 156/56 L 156/57 L O2 Sat by Pulse 96 Oximetry (%) 08/02/19 08/02/19 08/02/19 06:00 06:55 07:00 Temperature 98 F 98.4 F Pulse Rate 64 65 65 Respiratory 12 18 18 Rate Blood Pressure 159/58 L 159/58 L 168/58 L O2 Sat by Pulse Oximetry (%) 08/02/19 08/02/19 08/02/19 07:30 08:00 08:30 Temperature Pulse Rate 66 66 69 Respiratory 18 12 18 Rate Blood Pressure 165/58 L 185/60 H 185/65 H O2 Sat by Pulse Oximetry (%) 08/02/19 08/02/19 08/02/19 09:00 09:30 10:00 Temperature Pulse Rate 69 68 65 Respiratory 18 18 18 Rate Blood Pressure 179/58 H 172/64 H 175/64 H O2 Sat by Pulse Oximetry (%) 08/02/19 08/02/19 10:30 10:35 Temperature Pulse Rate 66 65 Respiratory 18 18 Rate Blood Pressure 163/56 L 159/59 L O2 Sat by Pulse Oximetry (%) Current Medications Generic Name Dose Route Start Last Admin Trade Name Freq PRN Reason Stop Dose Admin Acetaminophen 650 mg 08/01/19 21:57 08/01/19 22:03 Tylenol - PO 650 mg Q6H PRN Administration PAIN OR FEVER Amlodipine Besylate 10 mg 07/29/19 11:15 08/02/19 08:41 Norvasc - PO 10 mg DAILY [facility] Administration Carvedilol 25 mg 07/29/19 11:15 08/02/19 08:38 Coreg - PO 25 mg BID BRAD Administration Clonidine HCl 0.2 mg 07/30/19 11:02 07/30/19 12:00 Catapres Tts Patch - TD 0.2 mg MCMULLEN [facility] Administration Lorazepam 1 mg 07/30/19 21:18 07/30/19 21:24 Ativan Injection - IVPUSH 1 mg Q6H PRN Administration ANXIETY Pantoprazole Sodium 40 mg 07/27/19 12:00 08/01/19 09:33 Protonix Iv IVPUSH 40 mg DAILY [facility] Administration Laboratory Results - last 24 hr 07/27/19 07/30/19 08/01/19 10:30 03:00 23:10 WBC 3.8 L RBC 2.75 L Hgb 8.5 L Hct 25.2 L MCV 91.6 MCH 30.9 MCHC 33.7 RDW 14.5 Plt Count 159 MPV 8.6 Absolute Neuts (auto) 2.1 Neutrophils % 55.1 Lymphocytes % 21.9 Monocytes % 14.5 H Eosinophils % 8.0 H Basophils % 0.5 Nucleated RBC % 0 Sodium Potassium Chloride Carbon Dioxide Anion Gap BUN Creatinine Est GFR (CKD-EPI)AfAm Est GFR (CKD-EPI)NonAf Random Glucose Calcium Total Bilirubin AST ALT Alkaline Phosphatase Total Protein Albumin Blood Type A POSITIVE A POSITIVE Antibody Screen Negative Negative Crossmatch See Detail See Detail 08/02/19 08/02/19 08/02/19 03:55 03:55 07:00 WBC 4.3 RBC 3.28 L Hgb 10.0 L Hct 29.5 L D MCV 90.0 MCH 30.5 MCHC 33.9 RDW 14.4 Plt Count 158 MPV 8.5 Absolute Neuts (auto) 2.4 Neutrophils % 56.2 Lymphocytes % 22.3 Monocytes % 13.6 H Eosinophils % 7.3 H Basophils % 0.6 Nucleated RBC % 0 Sodium 139 Potassium 3.5 Chloride 99 Carbon Dioxide 31 Anion Gap 9 BUN 33.6 H Creatinine 4.4 H Est GFR (CKD-EPI)AfAm 15.52 Est GFR (CKD-EPI)NonAf 13.39 Random Glucose 82 Calcium 8.7 Total Bilirubin 1.1 H AST 27 ALT 18 Alkaline Phosphatase 146 H Total Protein 5.6 L Albumin 3.2 L Blood Type A POSITIVE Antibody Screen Negative Crossmatch 08/02/19 07:00 WBC 4.4 RBC 2.97 L Hgb 9.4 L Hct 26.4 L MCV 88.9 MCH 31.6 MCHC 35.6 RDW 14.6 Plt Count 157 MPV 8.6 Absolute Neuts (auto) Neutrophils % Lymphocytes % Monocytes % Eosinophils % Basophils % Nucleated RBC % Sodium Potassium Chloride Carbon Dioxide Anion Gap BUN Creatinine Est GFR (CKD-EPI)AfAm Est GFR (CKD-EPI)NonAf Random Glucose Calcium Total Bilirubin AST ALT Alkaline Phosphatase Total Protein Albumin Blood Type Antibody Screen Crossmatch S1 S2 RRR Lungs clear Abd- soft, Nt No edema PLAN transfuse as needed Hb stable no bleeding so far adjust BP meds continue with meds npo Problem List - Problems (1) Colonoscopy causing post-procedural bleeding Code(s): K91.840 - POSTPROC HEMOR OF A DGSTV SYS ORG FOL A DGSTV SYS PROCEDURE (2) GI hemorrhage Code(s): K92.2 - GASTROINTESTINAL HEMORRHAGE, UNSPECIFIED Qualifiers: GI bleed type/associated pathology: anorectal hemorrhage Qualified Code(s) : K62.5 - Hemorrhage of anus and rectum (3) Post-polypectomy bleeding Code(s): EZS2013 - (4) CAD (coronary artery disease) Code(s): I25.10 - ATHSCL HEART DISEASE OF [place] CORONARY ARTERY W/O ANG PCTRS Qualifiers: Coronary Disease-Associated Artery/Lesion type: [place] artery [place] vs. transplanted heart: [place] heart Associated angina: without angina Qualified Code(s): I25.10 - Atherosclerotic heart disease of [place] coronary artery without angina pectoris (5) ESRD (end stage renal disease) Code(s): N18.6 - END STAGE RENAL DISEASE (6) HTN (hypertension) Code(s): I10 - ESSENTIAL (PRIMARY) HYPERTENSION
--- NOTE | 2019-08-02 11:26 | PN ---
Teaching Attending Note Name of Resident: Trey Martínez ATTENDING PHYSICIAN STATEMENT I saw and evaluated the patient. I reviewed the resident's note and discussed the case with the resident. I agree with the resident's findings and plan as documented. SUBJECTIVE: Pt seen and examined in the ICU. Bloody bowel movement overnight, transfused PRBC. Currently receiving HD. OBJECTIVE: Vital Signs Period Temp Pulse Resp BP Sys/Chiang Pulse Ox Last 24 Hr 97.9 F-98.4 F 60-70 10-18 135-185/49-82 94-96 Intake & Output 07/30/19 07/31/19 08/01/19 08/02/19 23:59 23:59 23:59 23:59 Intake Total 950 010 745 1385 Output Total 1600 2000 Balance 950 -1000 530 -810 Weight 54.703 kg 58.06 kg 58.105 kg 54.93 kg Gen: NAD at rest Heart: RRR Lung: decreased breath sounds at the bases Abd: soft, nontender Ext: no edema CBC, BMP 08/02/19 07:00 Active Medications Acetaminophen (Tylenol -) 650 mg PO Q6H PRN PRN Reason: PAIN OR FEVER Last Admin: 08/01/19 22:03 Dose: 650 mg Amlodipine Besylate (Norvasc -) 10 mg PO DAILY [facility] Last Admin: 08/02/19 08:41 Dose: 10 mg Carvedilol (Coreg -) 25 mg PO BID [facility] Last Admin: 08/02/19 08:38 Dose: 25 mg Clonidine HCl (Catapres Tts Patch -) 0.2 mg TD MCMULLEN [facility] Last Admin: 07/30/19 12:00 Dose: 0.2 mg Lorazepam (Ativan Injection -) 1 mg IVPUSH Q6H PRN PRN Reason: ANXIETY Last Admin: 07/30/19 21:24 Dose: 1 mg Pantoprazole Sodium (Protonix Iv) 40 mg IVPUSH DAILY [facility] Last Admin: 08/01/19 09:33 Dose: 40 mg ASSESSMENT AND PLAN: GI Bleed likely Lower Acute Blood Loss Anemia Recent Colonoscopy/Polypectomies CAD s/p CABG ESRD on HD HTN Hyperlipidemia - for colonoscopy - monitor H/H - transfuse as needed - HD per renal - DVT prophylaxis - disposition pending colonoscopy
[2019-08-02 11:38] LABS: BLOOD UREA NITROGEN 6.9 mg/dL (7-18); CREATININE 1.1 mg/dL (0.55-1.3)
--- NOTE | 2019-08-02 12:36 | PN ---
Progress Note, Physician History of Present Illness: Pt seen and examined at bedside. He is tolerating HD. - Current Medication List Current Medications: Active Medications Acetaminophen (Tylenol -) 650 mg PO Q6H PRN PRN Reason: PAIN OR FEVER Last Admin: 08/01/19 22:03 Dose: 650 mg Amlodipine Besylate (Norvasc -) 10 mg PO DAILY [facility] Last Admin: 08/02/19 11:47 Dose: Not Given Carvedilol (Coreg -) 25 mg PO BID [facility] Last Admin: 08/02/19 11:46 Dose: Not Given Clonidine HCl (Catapres Tts Patch -) 0.2 mg TD MCMULLEN [facility] Last Admin: 07/30/19 12:00 Dose: 0.2 mg Lorazepam (Ativan Injection -) 1 mg IVPUSH Q6H PRN PRN Reason: ANXIETY Last Admin: 07/30/19 21:24 Dose: 1 mg Pantoprazole Sodium (Protonix Iv) 40 mg IVPUSH DAILY [facility] Last Admin: 08/01/19 09:33 Dose: 40 mg - Objective Vital Signs: Vital Signs Temperature 98.1 F 08/02/19 10:00 Pulse Rate 66 08/02/19 12:00 Respiratory Rate 12 08/02/19 12:00 Blood Pressure 159/56 L 08/02/19 12:00 O2 Sat by Pulse Oximetry (%) 98 08/02/19 11:49 Constitutional: Yes: Calm Eyes: Yes: Conjunctiva Clear HENT: Yes: Atraumatic Neck: Yes: Supple Cardiovascular: Yes: S1, S2 Respiratory: Yes: CTA Bilaterally Gastrointestinal: Yes: Soft Genitourinary: Yes: WNL Musculoskeletal: Yes: WNL Edema: No Integumentary: Yes: WNL Neurological: Yes: Confusion Labs: CBC, BMP 08/02/19 07:00 08/02/19 10:30 INR, PTT INR 0.95 (0.83-1.09) 07/31/19 05:55 Assessment/Plan Current Medications Generic Name Dose Route Start Last Admin Trade Name Freq PRN Reason Stop Dose Admin Acetaminophen 650 mg 08/01/19 21:57 08/01/19 22:03 Tylenol - PO 650 mg Q6H PRN Administration PAIN OR FEVER Amlodipine Besylate 10 mg 07/29/19 11:15 08/02/19 11:47 Norvasc - PO Not Given DAILY BRAD Carvedilol 25 mg 07/29/19 11:15 08/02/19 11:46 Coreg - PO Not Given BID BRAD Clonidine HCl 0.2 mg 07/30/19 11:02 07/30/19 12:00 Catapres Tts Patch - TD 0.2 mg MCMULLEN BRAD Administration Lorazepam 1 mg 07/30/19 21:18 07/30/19 21:24 Ativan Injection - IVPUSH 1 mg Q6H PRN Administration ANXIETY Pantoprazole Sodium 40 mg 07/27/19 12:00 08/01/19 09:33 Protonix Iv IVPUSH 40 mg DAILY BRAD Administration Impression 1. ESRD 2. GI bleed 3. dementia 4. dysphagia 5. anemia 6. CAD 7. hx CABG 8. DM 9. HLD Plan - HD today - agitation likely contributing to htn - bp improving with HD - monitor hg - will give epogen with HD - anemia workup per primary team - renal diet - 2 k bath f180 3:30, abf 450
--- NOTE | 2019-08-02 12:53 | PN.GI ---
GI Progress Note Subjective: Pt seen/examined at bedside, on hemodialysis this am. Bloody bm noted yesterday evening however had started golytely prep/dulcolax ?old blood, then refused to take further. Pts mentation fluctuating, state he feels well currently, denies abdominal pain, n/v. No further episodes of bleeding noted. - Objective Vital Signs: Vital Signs Temperature 98.1 F 08/02/19 10:00 Pulse Rate 66 08/02/19 12:00 Respiratory Rate 12 08/02/19 12:00 Blood Pressure 159/56 L 08/02/19 12:00 O2 Sat by Pulse Oximetry (%) 98 08/02/19 11:49 Constitutional: Well Nourished, No Distress, Calm Cardiovascular: Yes: WNL, Regular Rate and Rhythm Respiratory: Yes: WNL, Regular, CTA Bilaterally ...Palpate: Yes: Other (Abd soft, nt, nd Rectal exam deferred as pt on HD) Labs: CBC, BMP 08/02/19 07:00 08/02/19 10:30 INR, PTT INR 0.95 (0.83-1.09) 07/31/19 05:55 Problem List - Problems (1) GI bleed Assessment/Plan: S/p colonoscopy on 07/25/19 revealing multiple colon polyps, largest ~1.5cm at splenic flexure s/p snare polypectomy and endoclip placed with subsequent episodes of hematochezia and drop in Hb concerning for post polypectomy bleeding. Blood bm overnight noted and 1u prbc transfused with appropriate response, though could represent old blood as pt had initially started colon prep yesterday. Low suspicion for UGI bleed currently. No further overt bleeding , hemodynamically stable. -Continue to closely monitor Hb and for further bleeding. -In absence of further overt bleeding, with stable Hb (responding to prbc transfusion) and hemodynamics would defer endoscopy at this time and pt also refusing colon prep and undergoing HD today. -NPO for now -Repeat CBC this afternoon to ensure stability (ordered) -PPI daily -If overt bleeding with drop in Hb or hemodynamic instability would consider more urgent intervention at that time. D/w MICU team Code(s): K92.2 - GASTROINTESTINAL HEMORRHAGE, UNSPECIFIED
[2019-08-02] MEDS ORDERED: EPOETIN ALFA 2,000 UNIT/1 ML VIAL IVPUSH ONE (13:24)
[2019-08-02 13:38] LABS: HEMATOCRIT 28.7 % (35.4-49); MCH 31.2 pg (25.7-33.7); MEAN CELL VOLUME 89.4 fl (80-96); MEAN PLT VOLUME 8.9 fl (7.5-11.1); PLATELET COUNT 165 K/MM3 (134-434); RBC 3.21 M/mm3 (4.00-5.60); RDW 14.6 % (11.9-15.9); WHITE BLOOD COUNT 4.2 K/mm3 (4.0-10.0)
[2019-08-02] MEDS: PANTOPRAZOLE SODIUM 40 MG VIAL IVPUSH SCH (14:05)
--- NOTE | 2019-08-02 14:32 | PN ---
Physical Exam: SUBJECTIVE: Patient seen and examined at bedside. Melanotic BM o/n w/ H/H drop to 7.6 given 1U PRBC. Denies f/c/n/v/chestpain/sob/abdpain. OBJECTIVE: GEN: Sleeping, easily arousable and alert. Comfortable. HEENT: NC/AT. No facial asymmetry. Normal voice. Supple neck w/ FROM. CV: S1/S2, RRR, +murmur LUNG: CTAB, no wheezes, crackles, rales, rhonchi. GI: soft, ndnt, +BS, no guarding, no rebound. No masses. EXTREMITIES: 2+ distal pulses. No LE edema. No obvious deformities of all extremities. SKIN: warm, dry, normal turgor Vital Signs Period Temp Pulse Resp BP Sys/Chiang Pulse Ox Last 24 Hr 97.9 F-98.6 F 60-69 10-18 135-185/50-82 94-98 Laboratory Results - last 24 hr 07/27/19 07/30/19 08/01/19 10:30 03:00 23:10 WBC 3.8 L RBC 2.75 L Hgb 8.5 L Hct 25.2 L MCV 91.6 MCH 30.9 MCHC 33.7 RDW 14.5 Plt Count 159 MPV 8.6 Absolute Neuts (auto) 2.1 Neutrophils % 55.1 Lymphocytes % 21.9 Monocytes % 14.5 H Eosinophils % 8.0 H Basophils % 0.5 Nucleated RBC % 0 Sodium Potassium Chloride Carbon Dioxide Anion Gap BUN Creatinine Est GFR (CKD-EPI)AfAm Est GFR (CKD-EPI)NonAf Random Glucose Calcium Total Bilirubin AST ALT Alkaline Phosphatase Total Protein Albumin Blood Type A POSITIVE A POSITIVE Antibody Screen Negative Negative Crossmatch See Detail See Detail 08/02/19 08/02/19 08/02/19 03:55 03:55 07:00 WBC 4.3 RBC 3.28 L Hgb 10.0 L Hct 29.5 L D MCV 90.0 MCH 30.5 MCHC 33.9 RDW 14.4 Plt Count 158 MPV 8.5 Absolute Neuts (auto) 2.4 Neutrophils % 56.2 Lymphocytes % 22.3 Monocytes % 13.6 H Eosinophils % 7.3 H Basophils % 0.6 Nucleated RBC % 0 Sodium 139 Potassium 3.5 Chloride 99 Carbon Dioxide 31 Anion Gap 9 BUN 33.6 H Creatinine 4.4 H Est GFR (CKD-EPI)AfAm 15.52 Est GFR (CKD-EPI)NonAf 13.39 Random Glucose 82 Calcium 8.7 Total Bilirubin 1.1 H AST 27 ALT 18 Alkaline Phosphatase 146 H Total Protein 5.6 L Albumin 3.2 L Blood Type A POSITIVE Antibody Screen Negative Crossmatch 08/02/19 08/02/19 08/02/19 07:00 10:30 13:05 WBC 4.4 4.2 RBC 2.97 L 3.21 L Hgb 9.4 L 10.0 L Hct 26.4 L 28.7 L MCV 88.9 89.4 MCH 31.6 31.2 MCHC 35.6 35.0 RDW 14.6 14.6 Plt Count 157 165 MPV 8.6 8.9 Absolute Neuts (auto) Neutrophils % Lymphocytes % Monocytes % Eosinophils % Basophils % Nucleated RBC % Sodium Potassium Chloride Carbon Dioxide Anion Gap BUN 6.9 L Creatinine 1.1 Est GFR (CKD-EPI)AfAm 82.95 Est GFR (CKD-EPI)NonAf 71.57 Random Glucose Calcium Total Bilirubin AST ALT Alkaline Phosphatase Total Protein Albumin Blood Type Antibody Screen Crossmatch Active Medications Generic Name Dose Route Start Last Admin Trade Name Freq PRN Reason Stop Dose Admin Acetaminophen 650 mg 08/01/19 21:57 08/01/19 22:03 Tylenol - PO 650 mg Q6H PRN Administration PAIN OR FEVER Amlodipine Besylate 10 mg 07/29/19 11:15 08/02/19 11:47 Norvasc - PO Not Given DAILY BRAD Carvedilol 25 mg 07/29/19 11:15 08/02/19 11:46 Coreg - PO Not Given BID BRAD Clonidine HCl 0.2 mg 07/30/19 11:02 07/30/19 12:00 Catapres Tts Patch - TD 0.2 mg MCMULLEN BRAD Administration Lorazepam 1 mg 07/30/19 21:18 07/30/19 21:24 Ativan Injection - IVPUSH 1 mg Q6H PRN Administration ANXIETY Pantoprazole Sodium 40 mg 07/27/19 12:00 08/02/19 14:05 Protonix Iv IVPUSH 40 mg DAILY BRAD Administration ASSESSMENT/PLAN: 64M PMH HTN, HLD, CAD s/p CABG, ESRD HD(T/R/Sa), DM, GERD, dysphagia admitted to ICU after presenting with active GI bleed. Had a colonscopy w/ polypectomy the day prior to admission. Neuro - patient is occasionally agitated - refuses PO meds - pulls out IVs - soft restraints and ativan prn GI - likely LGIB - recent colonoscopy w/ polypectomy - Overnight melana - H/H 10 < 8.5 s/p 1U PRBC 08/01/19 - monitor CBC - Transfused as needed, goal Hgb > 8 - GI recs appreciated - possible upper lower scope today - BUN elevated can be due to upper GI bleed, but will assess tm. - Given bowel prep for colonoscopy and will undergo endoscopy evaluation tomorrow - Normal transfusions thresholds - Protonix CARD - HTN, HLD, CAD s/p CABG, acute blood loss anemia - telemetry - Pt refusing BP meds - O2 as needed - epogen per renal RENAL - ESRD HD(//) - HD completed yesterday - Renal recs appreciated ENDO - DM - BGM, AISS FEN - monitor lytes, H/H - AM labs - Clear liquid diet, as tolerated PPX - SCD Dispo pending scope Visit type - Emergency Visit Emergency Visit: No - New Patient This patient is new to me today: No - Critical Care Critical Care patient: Yes Total Critical Care Time (in minutes): 35 Critical Care Statement: The care of this patient involved high complexity decision making to prevent further life threatening deterioration of the patient 's condition and/or to evaluate & treat vital organ system(s) failure or risk of failure.
[2019-08-03] MEDS ORDERED: cloNIDine-TTS 0.2 MG/24 HOURS PATCH.TDWK TD SCH (00:45)
[2019-08-03 07:42] LABS: BASO % 0.7 % (0-2.0); EOS % 7.7 % (0-4.5); HEMATOCRIT 28.1 % (35.4-49); HEMOGLOBIN 9.7 GM/dL (11.7-16.9); LYMPH % 26.5 % (8-40); MCH 31.1 pg (25.7-33.7); MCHC 34.5 g/dl (32.0-35.9); MEAN CELL VOLUME 90.2 fl (80-96); MEAN PLT VOLUME 8.5 fl (7.5-11.1); NEUT % 50.1 % (42.8-82.8); PLATELET COUNT 178 K/MM3 (134-434); RBC 3.12 M/mm3 (4.00-5.60); RDW 14.5 % (11.9-15.9); WHITE BLOOD COUNT 3.4 K/mm3 (4.0-10.0)
[2019-08-03 07:46] LABS: ALBUMIN 3.2 g/dl (3.4-5.0); BILIRUBIN,TOTAL 0.9 mg/dL (0.2-1); BLOOD UREA NITROGEN 14.5 mg/dL (7-18); CALCIUM 8.9 mg/dL (8.5-10.1); CREATININE 2.9 mg/dL (0.55-1.3); POTASSIUM 3.8 mmol/L (3.5-5.1); TOT PROT 5.9 g/dl (6.4-8.2)
[2019-08-03] MEDS: PANTOPRAZOLE SODIUM 40 MG VIAL IVPUSH SCH (09:47)
[2019-08-03] MEDS: CARVEDILOL 25 MG TABLET (FP) PO SCH ×2 (09:47→21:42)
[2019-08-03] MEDS: amLODIPine BESYLATE 10 MG TABLET (FP) PO SCH (09:47)
--- NOTE | 2019-08-03 11:20 | PN ---
Progress Note (short form) - Note Progress Note: PULMONARY H/H stable. Denies shortness of breath, chest pain, abdominal pain. Vital Signs Period Temp Pulse Resp BP Sys/Chiang Pulse Ox Last 24 Hr 98.2 F-98.7 F 64-69 12-18 149-174/50-69 96-98 Gen: NAD at rest Heart: RRR Lung: decreased breath sounds at the bases Abd: soft, nontender Ext: no edema CBC, BMP 08/03/19 06:10 08/03/19 06:10 Active Medications Acetaminophen (Tylenol -) 650 mg PO Q6H PRN PRN Reason: PAIN OR FEVER Last Admin: 08/01/19 22:03 Dose: 650 mg Amlodipine Besylate (Norvasc -) 10 mg PO DAILY [facility] Last Admin: 08/03/19 09:47 Dose: 10 mg Carvedilol (Coreg -) 25 mg PO BID [facility] Last Admin: 08/03/19 09:47 Dose: 25 mg Clonidine HCl (Catapres Tts Patch -) 0.2 mg TD MCMULLEN [facility] Last Admin: 08/03/19 07:19 Dose: Not Given Pantoprazole Sodium (Protonix Iv) 40 mg IVPUSH DAILY [facility] Last Admin: 08/03/19 09:47 Dose: 40 mg A/P GI Bleed likely Lower Acute Blood Loss Anemia Recent Colonoscopy/Polypectomies CAD s/p CABG ESRD on HD HTN Hyperlipidemia - monitor H/H - transfuse as needed - GI f/u - HD per renal - DVT prophylaxis
--- NOTE | 2019-08-03 12:27 | PN.GI ---
GI Progress Note Subjective: Patient refused bowel preparation wednesday and wednesday No overt bleeding. Dark smear noted in diaper per nurse Patient denies abdominal pain - Objective Vital Signs: Vital Signs Temperature 97 F L 08/03/19 10:00 Pulse Rate 68 08/03/19 10:00 Respiratory Rate 18 08/03/19 10:00 Blood Pressure 151/66 08/03/19 10:00 O2 Sat by Pulse Oximetry (%) 96 08/02/19 22:00 Constitutional: Calm Eyes: No: Sclera Icterus Cardiovascular: Yes: Regular Rate and Rhythm. No: Murmur Respiratory: Yes: Diminished (at bases with poor insp effort) Gastrointestinal Inspection: No: Distention ...Auscultate: Yes: Normoactive Bowel Sounds ...Palpate: Yes: Soft. No: Hepatomegaly, Splenomegaly, Tenderness Edema: No (No LE edema) Labs: CBC, BMP 08/03/19 06:10 08/03/19 06:10 INR, PTT INR 0.95 (0.83-1.09) 07/31/19 05:55 Problem List - Problems (1) GI hemorrhage Assessment/Plan: No overt bleeding and has not required further transfurions. Hemodyanmically stable with stable H/H. Given difficulty getting Mr. White to cooperate with a bowel preparation (and the quality of the prep noted even after he completed it for the initial colonoscopy), advise monitoring and continuing clears. Code(s): K92.2 - GASTROINTESTINAL HEMORRHAGE, UNSPECIFIED Qualifiers: GI bleed type/associated pathology: anorectal hemorrhage Qualified Code(s) : K62.5 - Hemorrhage of anus and rectum
--- NOTE | 2019-08-03 12:32 | PN ---
Progress Note (short form) - Note Progress Note: no distress yesterday had maroon colored stools today only a small smear of blood No abd pain , no dizziness Vital Signs - 24 hr 08/02/19 08/02/19 08/02/19 14:00 16:00 18:00 Temperature 98.6 F 98.7 F Pulse Rate 64 68 68 Respiratory 16 14 18 Rate Blood Pressure 154/55 L 156/50 L 161/57 L O2 Sat by Pulse Oximetry (%) 08/02/19 08/02/19 08/03/19 20:00 22:00 02:00 Temperature 98.4 F 98.2 F 98.4 F Pulse Rate 68 69 66 Respiratory 18 18 Rate Blood Pressure 170/53 L 174/69 H 149/65 O2 Sat by Pulse 96 Oximetry (%) 08/03/19 08/03/19 06:00 10:00 Temperature 98.4 F 97 F L Pulse Rate 68 68 Respiratory 18 Rate Blood Pressure 155/67 151/66 O2 Sat by Pulse Oximetry (%) Current Medications Generic Name Dose Route Start Last Admin Trade Name Freq PRN Reason Stop Dose Admin Acetaminophen 650 mg 08/01/19 21:57 08/01/19 22:03 Tylenol - PO 650 mg Q6H PRN Administration PAIN OR FEVER Amlodipine Besylate 10 mg 08/03/19 10:00 08/03/19 09:47 Norvasc - PO 10 mg DAILY BRAD Administration Carvedilol 25 mg 08/03/19 10:00 08/03/19 09:47 Coreg - PO 25 mg BID BRAD Administration Clonidine HCl 0.2 mg 08/03/19 00:45 08/03/19 07:19 Catapres Tts Patch - TD Not Given MCMULLEN BRAD Pantoprazole Sodium 40 mg 08/03/19 10:00 08/03/19 09:47 Protonix Iv IVPUSH 40 mg DAILY BRAD Administration Laboratory Results - last 24 hr 07/27/19 08/02/19 08/03/19 10:31 13:05 06:10 WBC 4.2 3.4 L RBC 3.21 L 3.12 L Hgb 10.0 L 9.7 L Hct 28.7 L 28.1 L MCV 89.4 90.2 MCH 31.2 31.1 MCHC 35.0 34.5 RDW 14.6 14.5 Plt Count 165 178 MPV 8.9 8.5 Absolute Neuts (auto) 1.7 Neutrophils % 50.1 Lymphocytes % 26.5 Monocytes % 15.0 H Eosinophils % 7.7 H Basophils % 0.7 Nucleated RBC % 0 Sodium Potassium Chloride Carbon Dioxide Anion Gap BUN Creatinine Est GFR (CKD-EPI)AfAm Est GFR (CKD-EPI)NonAf Random Glucose Calcium Total Bilirubin AST ALT Alkaline Phosphatase Total Protein Albumin Crossmatch See Detail 08/03/19 06:10 WBC RBC Hgb Hct MCV MCH MCHC RDW Plt Count MPV Absolute Neuts (auto) Neutrophils % Lymphocytes % Monocytes % Eosinophils % Basophils % Nucleated RBC % Sodium 140 Potassium 3.8 Chloride 100 Carbon Dioxide 34 H Anion Gap 6 L BUN 14.5 Creatinine 2.9 H Est GFR (CKD-EPI)AfAm 25.69 Est GFR (CKD-EPI)NonAf 22.17 Random Glucose 51 L Calcium 8.9 Total Bilirubin 0.9 AST 26 ALT 18 Alkaline Phosphatase 156 H Total Protein 5.9 L Albumin 3.2 L Crossmatch S1 S2 RRR Lungs clear Abd- soft, Nt No edema PLAN transfuse as needed Hb stable adjust BP meds continue with meds add hydralazine for better control start clear liquid spoke with GI Problem List - Problems (1) Colonoscopy causing post-procedural bleeding Code(s): K91.840 - POSTPROC HEMOR OF A DGSTV SYS ORG FOL A DGSTV SYS PROCEDURE (2) GI hemorrhage Code(s): K92.2 - GASTROINTESTINAL HEMORRHAGE, UNSPECIFIED Qualifiers: GI bleed type/associated pathology: anorectal hemorrhage Qualified Code(s) : K62.5 - Hemorrhage of anus and rectum (3) Post-polypectomy bleeding Code(s): AWN0909 - (4) CAD (coronary artery disease) Code(s): I25.10 - ATHSCL HEART DISEASE OF [place] CORONARY ARTERY W/O ANG PCTRS Qualifiers: Coronary Disease-Associated Artery/Lesion type: [place] artery [place] vs. transplanted heart: [place] heart Associated angina: without angina Qualified Code(s): I25.10 - Atherosclerotic heart disease of [place] coronary artery without angina pectoris (5) ESRD (end stage renal disease) Code(s): N18.6 - END STAGE RENAL DISEASE (6) HTN (hypertension) Code(s): I10 - ESSENTIAL (PRIMARY) HYPERTENSION
[2019-08-03] MEDS: hydrALAZINE HCL 10 MG TABLET PO SCH ×2 (14:18→21:42)
[2019-08-03] MEDS ORDERED: SODIUM CHLORIDE 250 ML IV PRN (17:39)
--- NOTE | 2019-08-03 17:39 | PN ---
Progress Note, Physician History of Present Illness: Pt seen and examined at bedside. He is awake and appears comfortable. - Current Medication List Current Medications: Active Medications Acetaminophen (Tylenol -) 650 mg PO Q6H PRN PRN Reason: PAIN OR FEVER Last Admin: 08/01/19 22:03 Dose: 650 mg Amlodipine Besylate (Norvasc -) 10 mg PO DAILY [facility] Last Admin: 08/03/19 09:47 Dose: 10 mg Carvedilol (Coreg -) 25 mg PO BID [facility] Last Admin: 08/03/19 09:47 Dose: 25 mg Clonidine HCl (Catapres Tts Patch -) 0.2 mg TD MCMULLEN [facility] Last Admin: 08/03/19 07:19 Dose: Not Given Hydralazine HCl (Apresoline -) 10 mg PO TID [facility] Last Admin: 08/03/19 14:18 Dose: 10 mg Pantoprazole Sodium (Protonix Iv) 40 mg IVPUSH DAILY [facility] Last Admin: 08/03/19 09:47 Dose: 40 mg - Objective Vital Signs: Vital Signs Temperature 97.7 F 08/03/19 13:30 Pulse Rate 72 08/03/19 13:30 Respiratory Rate 18 08/03/19 13:30 Blood Pressure 138/56 L 08/03/19 13:30 O2 Sat by Pulse Oximetry (%) 97 08/03/19 10:00 Constitutional: Yes: Calm Eyes: Yes: Conjunctiva Clear HENT: Yes: Atraumatic Neck: Yes: Supple Cardiovascular: Yes: S1, S2 Respiratory: Yes: CTA Bilaterally Gastrointestinal: Yes: Soft Genitourinary: Yes: WNL Musculoskeletal: Yes: WNL Edema: No Neurological: Yes: Confusion Labs: CBC, BMP 08/03/19 06:10 08/03/19 06:10 INR, PTT INR 0.95 (0.83-1.09) 07/31/19 05:55 Assessment/Plan Current Medications Generic Name Dose Route Start Last Admin Trade Name Freq PRN Reason Stop Dose Admin Acetaminophen 650 mg 08/01/19 21:57 08/01/19 22:03 Tylenol - PO 650 mg Q6H PRN Administration PAIN OR FEVER Amlodipine Besylate 10 mg 08/03/19 10:00 08/03/19 09:47 Norvasc - PO 10 mg DAILY [facility] Administration Carvedilol 25 mg 08/03/19 10:00 09/12/19 09:47 Coreg - PO 25 mg BID BRAD Administration Clonidine HCl 0.2 mg 08/03/19 00:45 08/03/19 07:19 Catapres Tts Patch - TD Not Given MCMULLEN BRAD Hydralazine HCl 10 mg 08/03/19 14:00 08/03/19 14:18 Apresoline - PO 10 mg TID BRAD Administration Pantoprazole Sodium 40 mg 08/03/19 10:00 08/03/19 09:47 Protonix Iv IVPUSH 40 mg DAILY BRAD Administration Impression 1. ESRD 2. GI bleed 3. dementia 4. dysphagia 5. anemia 6. CAD 7. hx CABG 8. DM 9. HLD Plan - bp is improved - HD tomorrow - epogen with HD - monitor Hg - anemia workup per primary team - renal diet - 2 k bath f180 3:30, abf 450
[2019-08-04] MEDS: hydrALAZINE HCL 10 MG TABLET PO SCH ×2 (06:19→14:42)
[2019-08-04 08:29] LABS: HEMATOCRIT 28.3 % (35.4-49); HEMOGLOBIN 9.9 GM/dL (11.7-16.9); MCH 31.3 pg (25.7-33.7); MCHC 34.9 g/dl (32.0-35.9); MEAN CELL VOLUME 89.7 fl (80-96); MEAN PLT VOLUME 8.3 fl (7.5-11.1); PLATELET COUNT 194 K/MM3 (134-434); RBC 3.16 M/mm3 (4.00-5.60); RDW 14.5 % (11.9-15.9); WHITE BLOOD COUNT 3.3 K/mm3 (4.0-10.0)
[2019-08-04] MEDS ORDERED: EPOETIN ALFA 10,000 UNIT/1 ML VIAL IVPUSH ONE (09:30)
--- NOTE | 2019-08-04 10:13 | DS ---
Physical Examination Vital Signs: Vital Signs Temperature 98 F 08/04/19 09:30 Pulse Rate 60 08/04/19 10:05 Respiratory Rate 18 08/04/19 10:05 Blood Pressure 173/54 H 08/04/19 10:05 O2 Sat by Pulse Oximetry (%) 96 08/04/19 04:17 Findings/Remarks: pt seen/ examined in dialysis comfortable no complains no further bleeding denies pain. Constitutional: Yes: No Distress, Calm Eyes: Yes: Conjunctiva Clear Neck: Yes: Supple Respiratory: Yes: CTA Bilaterally Gastrointestinal: Yes: Normal Bowel Sounds, Soft Edema: No Labs: CBC, BMP 08/04/19 07:26 08/03/19 06:10 Discharge Summary Reason For Visit: GASTROINTESTINAL BLEEDING; HOMORRHAGE COLON Current Active Problems Colonoscopy causing post-procedural bleeding (Acute) GI bleed (Acute) GI hemorrhage (Acute) Post-polypectomy bleeding (Acute) Hospital Course: admitted after gi bleed after recent colonoscopy transfused gi followed bleeding stopped h/h stable d/w rn d/c to detention off asa for now will follow in detention meds reconcilled also Condition: Stable - Instructions Disposition: [facility]AY FACILITY - Home Medications Comprehensive Discharge Medication List: Ambulatory Orders Acetaminophen [Tylenol] 650 mg PO Q6H PRN 07/19/18 Amlodipine Besylate [Norvasc -] 10 mg PO DAILY 07/19/18 Atorvastatin Ca [Lipitor] 10 mg PO HS 07/19/18 Calcium Acetate [Phoslo -] 667 mg PO TIDCM 07/19/18 Clonidine Patch [Catapres Tts Patch -] 0.2 mg TD MCMULLEN 07/19/18 Ergocalciferol [Vitamin D2] 50,000 unit PO MCMULLEN 07/19/18 Carvedilol [Coreg -] 25 mg PO BID 07/17/19 Folic Acid 1 mg PO DAILY 07/17/19 Lactobacillus Acidophilus [Bacid -] 1 cap PO DAILY 07/17/19 Mirtazapine 30 mg PO HS 07/17/19 Vitamin B Comp W-C [Nephro-Alejandro -] 0.8 mg PO DAILY 07/17/19 Pantoprazole Sodium [Protonix] 40 mg PO DAILY #60 tablet. 07/26/19 hydrALAZINE HCL [Apresoline -] 10 mg PO TID tablet 08/04/19
[2019-08-04] MEDS: CARVEDILOL 25 MG TABLET (FP) PO SCH (14:35)
[2019-08-04] MEDS: amLODIPine BESYLATE 10 MG TABLET (FP) PO SCH (14:35)
--- NOTE | 2019-08-04 15:15 | PN ---
Progress Note, Physician History of Present Illness: Pt seen and examined at bedside. He tolerated HD. - Current Medication List Current Medications: Active Medications Acetaminophen (Tylenol -) 650 mg PO Q6H PRN PRN Reason: PAIN OR FEVER Last Admin: 08/01/19 22:03 Dose: 650 mg Amlodipine Besylate (Norvasc -) 10 mg PO DAILY [facility] Last Admin: 08/04/19 14:35 Dose: 10 mg Carvedilol (Coreg -) 25 mg PO BID [facility] Last Admin: 08/04/19 14:35 Dose: 25 mg Clonidine HCl (Catapres Tts Patch -) 0.2 mg TD MCMULLEN [facility] Last Admin: 08/03/19 07:19 Dose: Not Given Hydralazine HCl (Apresoline -) 10 mg PO TID [facility] Last Admin: 08/04/19 14:42 Dose: 10 mg Sodium Chloride (Normal Saline -) 250 mls @ 3,000 mls/hr IV PRN PRN PRN Reason: Hypotension during Dialysis Stop: 08/04/19 17:40 Pantoprazole Sodium (Protonix Iv) 40 mg IVPUSH DAILY [facility] Last Admin: 08/03/19 09:47 Dose: 40 mg - Objective Vital Signs: Vital Signs Temperature 98 F 08/04/19 09:30 Pulse Rate 61 08/04/19 13:10 Respiratory Rate 18 08/04/19 13:10 Blood Pressure 163/60 08/04/19 13:10 O2 Sat by Pulse Oximetry (%) 96 08/04/19 04:17 Constitutional: Yes: Calm Eyes: Yes: Conjunctiva Clear HENT: Yes: Atraumatic Neck: Yes: Supple Cardiovascular: Yes: S1, S2 Respiratory: Yes: CTA Bilaterally Gastrointestinal: Yes: Soft Genitourinary: Yes: WNL Musculoskeletal: Yes: WNL Edema: No Neurological: Yes: Confusion Psychiatric: Yes: Oriented Labs: CBC, BMP 08/04/19 07:26 08/03/19 06:10 INR, PTT INR 0.95 (0.83-1.09) 07/31/19 05:55 Problem List - Problems (1) GI bleed Code(s): K92.2 - GASTROINTESTINAL HEMORRHAGE, UNSPECIFIED (2) ESRD (end stage renal disease) Code(s): N18.6 - END STAGE RENAL DISEASE Assessment/Plan Current Medications Generic Name Dose Route Start Last Admin Trade Name Freq PRN Reason Stop Dose Admin Acetaminophen 650 mg 08/01/19 21:57 08/01/19 22:03 Tylenol - PO 650 mg Q6H PRN Administration PAIN OR FEVER Amlodipine Besylate 10 mg 08/03/19 10:00 08/04/19 14:35 Norvasc - PO 10 mg DAILY BRAD Administration Carvedilol 25 mg 08/03/19 10:00 08/04/19 14:35 Coreg - PO 25 mg BID BRAD Administration Clonidine HCl 0.2 mg 08/03/19 00:45 08/03/19 07:19 Catapres Tts Patch - TD Not Given MCMULLEN BRAD Hydralazine HCl 10 mg 08/03/19 14:00 08/04/19 14:42 Apresoline - PO 10 mg TID BRAD Administration Sodium Chloride 250 mls @ 3,000 mls/hr 08/03/19 17:39 Normal Saline - IV 08/04/19 17:40 PRN PRN Hypotension during Dialysis Pantoprazole Sodium 40 mg 08/03/19 10:00 08/03/19 09:47 Protonix Iv IVPUSH 40 mg DAILY BRAD Administration Impression 1. ESRD 2. GI bleed 3. dementia 4. dysphagia 5. anemia 6. CAD 7. hx CABG 8. DM 9. HLD Plan - HD today - monitor hg - he has HD set up as outpt - next HD on Wednesday - will see pt on Wednesday - epogen with HD - anemia workup per primary team - renal diet - 2 k bath f180 3:30, abf 450
[2019-08-04] MEDS: PANTOPRAZOLE SODIUM 40 MG VIAL IVPUSH SCH (15:23)
[2019-08-04 18:26] VITALS: BP 160/60; PULSE 66; TEMP 98.2
== END 2019-08-04 16:55 | DRG 919 ==
LOC: JER 08:46 → JERBED 11:33 → JICU 12:53 → J6S 08-02 22:25
PROVIDERS: ADMIT Internal Medicine; ATTEND Internal Medicine
PROC: 30233R1 Transfusion of Nonautologous Platelets into Peripheral Vein, Percutaneous Approach (ICD-10-PCS; principal; 2019-07-27)
PROC: 30233N1 Transfusion of Nonautologous Red Blood Cells into Peripheral Vein, Percutaneous Approach (ICD-10-PCS; 2019-07-27)
PROC: 5A1D70Z Performance of Urinary Filtration, Intermittent, Less than 6 Hours Per Day (ICD-10-PCS; 2019-07-31)
PROC: 5A1D70Z Performance of Urinary Filtration, Intermittent, Less than 6 Hours Per Day (ICD-10-PCS; 2019-08-02)
PROC: 5A1D70Z Performance of Urinary Filtration, Intermittent, Less than 6 Hours Per Day (ICD-10-PCS; 2019-08-04)
DX: K91.840 Postprocedural hemorrhage of a digestive system organ or structure following a digestive system procedure (principal); N18.6 End stage renal disease; B78.9 Strongyloidiasis, unspecified; I12.0 Hypertensive chronic kidney disease with stage 5 chronic kidney disease or end stage renal disease; D62 Acute posthemorrhagic anemia; K62.5 Hemorrhage of anus and rectum; I25.10 Atherosclerotic heart disease of native coronary artery without angina pectoris; E78.5 Hyperlipidemia, unspecified; Z95.1 Presence of aortocoronary bypass graft; F03.90 Unspecified dementia, unspecified severity, without behavioral disturbance, psychotic disturbance, mood disturbance, and anxiety; K21.9 Gastro-esophageal reflux disease without esophagitis; E11.22 Type 2 diabetes mellitus with diabetic chronic kidney disease; Z99.2 Dependence on renal dialysis; Z86.718 Personal history of other venous thrombosis and embolism; Y83.8 Other surgical procedures as the cause of abnormal reaction of the patient, or of later complication, without mention of misadventure at the time of the procedure
CPT/HCPCS: 36415; 36430; 36511; 71045-TC-FY; 80048; 80053; 82272; 82565; 82962; 83735; 84100; 84520; 85025; 85027; 85044; 85610; 85730; 86850; 86880; 86900; 86901; 86922; 93005; 93010; 99285-25; J0885; J2597; J7030; P9034; P9038; P9058

== ENCOUNTER 2020-06-05 16:15 | Inpatient (IN) | payer OTHER ==
--- NOTE | 2020-06-05 16:53 | PDOC ---
History of Present Illness - General Chief Complaint: Weakness Stated Complaint: Dialysis Shunt Problem Time Seen by Provider: 06/05/20 16:44 History Source: EMS, Retirement Records Exam Limitations: No Limitations - History of Present Illness Initial Comments: 06/05/20 16:48 Code: DNR / DNI HPI: 65yo M pmh DM, DVT RLE, HLD, HTN, GERD, Anemia, Generalized weakness, dysphagia, CAD, ESRD on HD (, , ) presenting from [facility] for bleeding from his LUE fistula. Per EMS and [facility] nursing report patient was found in his room bleeding from his fistula more than he normally would the day after HD. The nurse said it was slight more than usual, EMS described it as "liters of blood." Patient provides minimal history, appears fatigued, is unable to state when he last had dialysis. Arrived with a tight compressive dressing on LUE. Radial pulse intact, hand veins distended. All: NKDA Past History - Travel History Traveled outside of the country in the last 30 days: No Close contact w/someone who was outside of country & ill: No - Medical History Allergies/Adverse Reactions: Allergies Allergy/AdvReac Type Severity Reaction Status Date / Time No Known Allergies Allergy Verified 06/05/20 16:58 Home Medications: Ambulatory Orders Acetaminophen [Tylenol] 650 mg PO Q6H PRN 07/19/18 Amlodipine Besylate [Norvasc -] 10 mg PO DAILY 07/19/18 Atorvastatin Ca [Lipitor] 10 mg PO HS 07/19/18 Calcium Acetate [Phoslo -] 667 mg PO TIDCM 07/19/18 Clonidine Patch [Catapres Tts Patch -] 0.2 mg TD MCMULLEN 07/19/18 Ergocalciferol [Vitamin D2] 50,000 unit PO MCMULLEN 07/19/18 Carvedilol [Coreg -] 25 mg PO BID 07/17/19 Folic Acid 1 mg PO DAILY 07/17/19 Lactobacillus Acidophilus [Bacid -] 1 cap PO DAILY 07/17/19 Mirtazapine 30 mg PO HS 07/17/19 Vitamin B Comp W-C [Nephro-Alejandro -] 0.8 mg PO DAILY 07/17/19 Pantoprazole Sodium [Protonix] 40 mg PO DAILY #60 tablet. 07/26/19 hydrALAZINE HCL [Apresoline -] 10 mg PO TID tablet 08/04/19 Anemia: Yes Cardiac Disorders: Yes (CAD, DVT right leg, Angina) COPD: No CHF: No DVT: Yes Dementia: Yes Diabetes: Yes Dialysis: Yes (e- ur- sat right chest dialysis catheter) GI Disorders: Yes (GERD, Dysphagia) HTN: Yes Hypercholesterolemia: Yes - Surgical History Cardiac Surgery: Yes (CABG) Cholecystectomy: No GI Surgery: No - Immunization History Td Vaccination: No TDAP Vaccination: No Immunization Up to Date: Yes - Psycho-Social/Smoking History Smoking History: Unknown if ever smoked Have you smoked in the past 12 months: No Number of Cigarettes Smoked Daily: 0 Cigars Per Day: 0 Review of Systems - Review of Systems Able to Perform ROS?: No (clinical condition) Is the patient limited Mauritian proficient: Yes *Physical Exam - Physical Exam 06/05/20 17:01 Vitals reviewed, hypotensive to 90-100s/60-70s, 100% Sat on supplemental O2 GEN: Lethargic but arousable, opens eyes to voice, speaks but appears confused, appears older than stated age, NAD. HEENT: NCAT, EOMI, PERRL. Sclera anicteric, non-injected. No facial asymmetry. Moist mucous membranes. Trachea midline. CV: RRR, S1/S2, no murmurs / rubs / gallops appreciated. LUNG: CTABL, normal work of breathing. No wheezes, rales, rhonchi. No cough. Speaking full sentences. GI: Soft, NTND, +BS, no guarding, no rebound. No masses. EXTREMITIES: 2+ distal pulses. Pressure dressing overlying LUE fistula site with inner layer with blood, no active bleeding, no thrill, no bruit. No clubbing / cyanosis / edema. No gross deformity in any extremity. SKIN: Warm, dry, no rashes appreciated, non-jaundiced. PSYCH: Unable to assess NEURO: CN grossly intact. Moving all extremities well. Normal strength and sensation grossly. ED Treatment Course - LABORATORY CBC & Chemistry Diagram: 06/08/20 08:07 06/06/20 06:00 Medical Decision Making - Medical Decision Making 06/05/20 17:10 65yo M pmh DM, DVT RLE, HLD, HTN, GERD, Anemia, Generalized weakness, dysphagia, CAD, ESRD on HD (, , ) presenting from [facility] for bleeding from his LUE fistula. Patient found to be without active bleeding, distal pulses intact, no thrill or bruit at site of fistula, improving BP in the department without intervention, lethargic, no pallor. Plan for admission for vascular surgery in setting of newly obstructed fistula. - CBC, CMP, Cardiac profile, T&Sx2 - EKG, CXR, Duplex of LUE fistula - Code: DNR / DNI 06/05/20 17:14 - Hgb 8.9, baseline 9 06/05/20 18:18 - Patient neutropenic / pancytopenic - Blood cultures ordered, afebrile with ?PNA on CXR - Plan for Vanc / Cefepime Spoke with Dr. Davila, suggested neuropenia 2/2 infection (PNA) instead of the other way around Recommends infection workup and B12, Folate, Iron studies as well as obtain non- emergent US of liver and spleen 06/05/20 18:30 Dispo: Admit Med/Surg Microblog sent 06/05/20 19:[address] Martínez for duration of ED stay - f/u COVID, Cultures, ABX administration Spoke with Dr. Zheng who is aware patient in house, on my review, prior fistula not created here Patient endorsed to hospitalist team, admitted under Dr. Comer to Med/Surg for a reverse isolation HD bed Dispo: Admitted Discharge - Discharge Information Problems reviewed: Yes Clinical Impression/Diagnosis: AV graft thrombosis, Bleeding from dialysis shunt, Neutropenia, Pneumonia Condition: Guarded - Follow up/Referral - Patient Discharge Instructions - Post Discharge Activity
[2020-06-05 17:02] LABS: BASO % 1.9 % (0-2.0); HEMATOCRIT 27.1 % (35.4-49); HEMOGLOBIN 8.9 GM/dL (11.7-16.9); LYMPH % 39.2 % (8-40); MCH 31.8 pg (25.7-33.7); MCHC 32.7 g/dl (32.0-35.9); MEAN CELL VOLUME 97.3 fl (80-96); MEAN PLT VOLUME 9.2 fl (7.5-11.1); MONO % 16.4 % (3.8-10.2); NEUT % 34.5 % (42.8-82.8); PLATELET COUNT 132 K/MM3 (134-434); RBC 2.79 M/mm3 (4.00-5.60); RDW 15.9 % (11.9-15.9); WHITE BLOOD COUNT 2.4 K/mm3 (4.0-10.0)
[2020-06-05 17:11] LABS: INR 1.06 (0.83-1.09); PROTHROMBIN TIME (PATIENT) 12.5 SEC (9.7-13.0)
[2020-06-05 17:14] LABS: ACTIVATED PTT 28.2 SECONDS (25.2-36.5)
[2020-06-05 17:23] LABS: ALBUMIN 2.9 g/dl (3.4-5.0); ALK PHOS 129 U/L (45-117); ANION GAP 11 MMOL/L (8-16); BILIRUBIN,TOTAL 0.5 mg/dL (0.2-1); BLOOD UREA NITROGEN 36.4 mg/dL (7-18); CALCIUM 8.5 mg/dL (8.5-10.1); CHLORIDE 98 mmol/L (98-107); CO2 23 mmol/L (21-32); CREATININE 4.6 mg/dL (0.55-1.3); GLUCOSE,RANDOM 180 mg/dL (74-106); POTASSIUM 4.9 mmol/L (3.5-5.1); SGOT/AST 38 U/L (15-37); SGPT/ALT 27 U/L (13-61); SODIUM 132 mmol/L (136-145); TOT PROT 5.7 g/dl (6.4-8.2)
--- NOTE | 2020-06-05 17:32 | PDOC ---
Documentation entered by Yair Ye SCRIBE, acting as scribe for Roma Jacobs DO. Roma Jacobs DO: This documentation has been prepared by the Mildred cortes Nirvannie, SCRIBE, under my direction and personally reviewed by me in its entirety. I confirm that the documentation accurately reflects all work, treatment, procedures, and medical decision making performed by me. Attending Attestation - Resident Resident Name: ErvinAlessio - ED Attending Attestation I have performed the following: I have examined & evaluated the patient, The case was reviewed & discussed with the resident, I agree w/resident's findings & plan, Exceptions are as noted - HPI HPI: 06/05/20 17:46 The patient is a 65 year old male with a significant past medical history of ESRD (on HD , , Wed; last received dialysis yesterday), DM, DVT (RLE), HTN, HLD, anemia, generalized weakness, and dysphagia who presents to the ED from [facility] with a bleeding left upper extremity fistula. As per EMS and [facility] nursing staff, upon reassessment of the patient he was found to have a pool of blood around the site of his fistula. Nursing staff notes a history of bleeding to the fistula site, however, today it was slightly more than usual. Per EMS, patient was hypoxic and hypotensive upon their arrival. While in the ED, patient is fatigued and is unable to provide a history thus was obtained via EMS and custodial staff. Allergies: NKA Social history: [facility]. Code: DNR / DNI - Physicial Exam PE: 06/05/20 17:47 Constitutional: +Lethargic. +Weak. Awake. No acute distress. Head: Normocephalic. Atraumatic Eyes: PERRL. EOMI. Conjunctivae are not pale. ENT: Mucous membranes are moist and intact. Posterior pharynx without exudates or erythema. Uvula midline. Neck: Supple. Full ROM. No lymphadenopathy. Cardiovascular: Regular rate. Regular rhythm. S1, S2 regular. Distal pulses are 2+ and symmetric. Pulmonary/Chest: No evidence of respiratory distress. Clear to auscultation bilaterally No wheezing, rales or rhonchi. Abdominal: Soft and non-distended. There is no tenderness. No rebound, guarding or rigidity. No organomegaly. No palpable masses. Good bowel sounds. Back: No CVA tenderness. Musculoskeletal: No edema. No cyanosis. No clubbing. Full range of motion in all extremities. No calf tenderness. Radial/pedal pulses are intact and 2+ bilaterally Extremities: +LUQ graft no bruits or thrills palpable or aucultated. Skin: Skin is warm and dry. No petechiae. No purpura. Neurological: Alert and oriented to person, place, and time. Cranial nerves II-XII are grossly intact. Normal speech. Strength is grossly symmetric. No sensory deficits. Psychiatric: Good eye contact. Normal interaction, affect and behavior. - Medical Decision Making 06/05/20 17:29 a/p: 65yo male from his ECF for eval of bleeding from his HD site -pt with LUE av graft, had bleeding after HD yesterday, then nurse found the patient in a "pool" of blood. Pt was hypotensive upon arrival and on a nrb -pulse ox on ra is 100% -bp 90systolic -2 IV placed, labs sent -pt on teletypesetter monitor -denies all somatic complaints -pt arrived with a tight compressive dressing to LUE AV fistula, no bruit/thrill to graft, intact distal pulses, no bleeding, but now concern for clot in the AV graft, ultrasound ordered -will send covid as pt will most likely need Vasc Sx eval of graft tomorrow and HD tomorrow in the hospital -will monitor and reassess 06/05/20 18:22 pt with neutropenia also with poss early infiltrate on cxr hgb stable call placed to Dr. Davila - resident discussing with heme/onc consults placed to Dr. Garland and Dr. Siu for HD/vasc access 06/05/20 19:14 clot in the draining vein of the fistula, call placed to Dr. garland 06/05/20 19:[address] garland and with Dr. Siu microblog sent 06/05/20 19:23 resident discussed the case with symphocatie who accepts pt to service Heart Score/ECG Review - ECG Intrepretation Comment:: 06/05/20 17:28 sinus edilson at 57, nl axis, nl nterval, no acute st/t wave findings Discharge - Discharge Information Problems reviewed: Yes Clinical Impression/Diagnosis: AV graft thrombosis, Bleeding from dialysis shunt, Neutropenia, Pneumonia Condition: Guarded - Admission Yes - Follow up/Referral Referrals: Maddie Davenport MD [Primary Care Provider] - - Patient Discharge Instructions - Post Discharge Activity
[2020-06-05] MEDS ORDERED: VANCOMYCIN 1 GM in D5W (PRE-DOCKED) 1,000 MG/250 ML IVPB ONE (18:54)
[2020-06-05] MEDS ORDERED: CEFEPIME 1 GM in DEXTROSE 5%-WATER 100 ML IVPB ONE (19:15)
--- NOTE | 2020-06-05 19:17 | PDOC ---
*Physical Exam - Vital Signs Last Vital Signs Temp Pulse Resp BP Pulse Ox 98.6 F 88 22 H 148/79 99 06/05/20 17:00 06/05/20 17:00 06/05/20 17:00 06/05/20 17:00 06/05/20 18:53 ED Treatment Course - LABORATORY CBC & Chemistry Diagram: 06/05/20 16:55 06/05/20 16:55 - ADDITIONAL ORDERS Additional order review: Laboratory Results 06/05/20 06/05/20 06/05/20 16:56 16:55 16:55 PT with INR INR PTT (Actin FS) Sodium 132 L Potassium 4.9 Chloride 98 Carbon Dioxide 23 Anion Gap 11 BUN 36.4 H Creatinine 4.6 H Est GFR (CKD-EPI)AfAm 14.60 Est GFR (CKD-EPI)NonAf 12.60 POC Glucometer 166 Random Glucose 180 H Calcium 8.5 Total Bilirubin 0.5 AST 38 H ALT 27 Alkaline Phosphatase 129 H Creatine Kinase 99 Troponin I < 0.02 Total Protein 5.7 L Albumin 2.9 L Blood Type A POSITIVE Antibody Screen Negative 06/05/20 16:55 PT with INR 12.50 INR 1.06 PTT (Actin FS) 28.2 Sodium Potassium Chloride Carbon Dioxide Anion Gap BUN Creatinine Est GFR (CKD-EPI)AfAm Est GFR (CKD-EPI)NonAf POC Glucometer Random Glucose Calcium Total Bilirubin AST ALT Alkaline Phosphatase Creatine Kinase Troponin I Total Protein Albumin Blood Type Antibody Screen 06/05/20 06/05/20 16:56 16:55 RBC 2.79 L MCV 97.3 H MCHC 32.7 RDW 15.9 MPV 9.2 D Neutrophils % 34.5 L D Lymphocytes % 39.2 D Monocytes % 16.4 H Eosinophils % 8.0 H Basophils % 1.9 POC Glucometer 166 Medical Decision Making - Medical Decision Making 06/05/20 19:16 received as sign out from day team bleeding LUE AVF stable h/h no bruit or thrill US demonstrates blocked draining vein but patent artery Dr. Davila aware renal and vascular c/s placed admit Discharge - Discharge Information Problems reviewed: Yes Clinical Impression/Diagnosis: AV graft thrombosis, Bleeding from dialysis shunt, Neutropenia, Pneumonia Condition: Guarded - Admission Yes - Follow up/Referral - Patient Discharge Instructions - Post Discharge Activity
[2020-06-05] MEDS ORDERED: VANCOMYCIN 1 GRAM (PRE-DOCKED) 1,000 MG/250 ML BAG IVPB ONE (20:02)
[2020-06-05] MEDS ORDERED: CEFEPIME 1 GM/100 ML BAG IVPB ONE (20:03)
--- NOTE | 2020-06-05 20:05 | HP ---
CHIEF COMPLAINT: presents from [facility] with left upper forearm AV fistula bleeding PCP: from [facility] HISTORY OF PRESENT ILLNESS: Mr. White is a 65 year old male with a significant past medical history of ESRD (on HD , , Wed; last received dialysis yesterday), NIDDM(not on meds) , DVT (RLE), HTN, HLD, anemia, generalized weakness, and dysphagia who presented to the ED from [facility] with a bleeding left upper extremity fistula. As per EMS and [facility] staff, upon reassessment of the patient he was found to have a pool of blood around the site of his fistula. Nursing staff notes a history of bleeding to the fistula site, however, today it was slightly more than the usual. Per EMS, patient was hypoxic and hypotensive upon their arrival.In the Er on arrival patient appeared weak. ER course notable for: Venous doppler of left upper forearm AV fistula demonstrated a thrombus. Vascular was consulted - Dr. Garland. Labs notable for neutropneia- WBC- 2.4, RBC -2.79, hgb 8.9, hct 27.1, Heme/Oncology- Dr. Davila was consulted. CXR with early infiltrate, received one dosage of IV Cefipime and Vancomycin COVID nasal swab obtained and he is maintained on strict contact and droplet isolation precautions. Code Status: DNR / DNI Recent Travel: no PAST MEDICAL HISTORY: ESRD DM DVT(RLE) HTN HLD Anemia of chronic disease PAST SURGICAL HISTORY: LUE AV fistula Social History: Smoking:no Alcohol:no Drugs: no Family History noncontributory Allergies No Known Allergies Allergy (Verified 06/05/20 16:58) HOME MEDICATIONS: Home Medications Medication Instructions Recorded Acetaminophen [Tylenol] 650 mg PO Q6H PRN 07/19/18 Amlodipine Besylate [Norvasc -] 10 mg PO DAILY 07/19/18 Atorvastatin Ca [Lipitor] 10 mg PO HS 07/19/18 Calcium Acetate [Phoslo -] 667 mg PO TIDCM 07/19/18 Clonidine Patch [Catapres Tts 0.2 mg TD MCMULLEN 07/19/18 Patch -] Ergocalciferol [Vitamin D2] 50,000 unit PO MCMULLEN 07/19/18 Carvedilol [Coreg -] 25 mg PO BID 07/17/19 Folic Acid 1 mg PO DAILY 07/17/19 Lactobacillus Acidophilus [Bacid -] 1 cap PO DAILY 07/17/19 Mirtazapine 30 mg PO HS 07/17/19 Vitamin B Comp W-C [Nephro-Alejandro -] 0.8 mg PO DAILY 07/17/19 Pantoprazole Sodium [Protonix] 40 mg PO DAILY #60 tablet. 07/26/19 hydrALAZINE HCL [Apresoline -] 10 mg PO TID tablet 08/04/19 REVIEW OF SYSTEMS CONSTITUTIONAL: Absent: fever, chills, diaphoresis, generalized weakness, malaise, loss of appetite, weight change HEENT: Absent: rhinorrhea, nasal congestion, throat pain, throat swelling, difficulty swallowing, mouth swelling, ear pain, eye pain, visual changes CARDIOVASCULAR: Absent: chest pain, syncope, palpitations, irregular heart rate, lightheadedness, peripheral edema RESPIRATORY: Absent: cough, shortness of breath, dyspnea with exertion, orthopnea, wheezing, stridor, hemoptysis GASTROINTESTINAL: Absent: abdominal pain, abdominal distension, nausea, vomiting, diarrhea, constipation, melena, hematochezia GENITOURINARY: Absent: dysuria, frequency, urgency, hesitancy, hematuria, flank pain, genital pain MUSCULOSKELETAL: Absent: myalgia, arthralgia, joint swelling, back pain, neck pain SKIN: Absent: rash, itching, pallor HEMATOLOGIC/IMMUNOLOGIC: Absent: easy bleeding, easy bruising, lymphadenopathy, frequent infections, bleeding to LUE AV fistula ENDOCRINE: Absent: unexplained weight gain, unexplained weight loss, heat intolerance, cold intolerance NEUROLOGIC: Absent: headache, focal weakness or paresthesias, dizziness, unsteady gait, seizure, mental status changes, bladder or bowel incontinence PSYCHIATRIC: Absent: anxiety, depression, suicidal or homicidal ideation, hallucinations. PHYSICAL EXAMINATION Vital Signs - 24 hr 06/05/20 06/05/20 17:00 18:53 Temperature 98.6 F Pulse Rate 88 Respiratory 22 H Rate Blood Pressure 148/79 O2 Sat by Pulse 99 99 Oximetry (%) General no acute distress Vital signs reviewed, hemodynamically stable, afebrile Neck no JVD Neuro no focal deficits Lungs CTA nonlabored breathing effort no rales no wheezing Heart s1s2 rate regular Abdomen soft nontnder nondistended Extremities LUE AV fistula with no active bleeding or erthyema, -bruit/thrills Mood calm Laboratory Results - last 24 hr 06/05/20 06/05/20 06/05/20 16:55 16:55 16:55 WBC 2.4 L RBC 2.79 L Hgb 8.9 L Hct 27.1 L MCV 97.3 H MCH 31.8 MCHC 32.7 RDW 15.9 Plt Count 132 L D MPV 9.2 D Absolute Neuts (auto) 0.8 L Neutrophils % 34.5 L D Lymphocytes % 39.2 D Monocytes % 16.4 H Eosinophils % 8.0 H Basophils % 1.9 Nucleated RBC % 0 PT with INR 12.50 INR 1.06 PTT (Actin FS) 28.2 Sodium 132 L Potassium 4.9 Chloride 98 Carbon Dioxide 23 Anion Gap 11 BUN 36.4 H Creatinine 4.6 H Est GFR (CKD-EPI)AfAm 14.60 Est GFR (CKD-EPI)NonAf 12.60 POC Glucometer Random Glucose 180 H Calcium 8.5 Total Bilirubin 0.5 AST 38 H ALT 27 Alkaline Phosphatase 129 H Creatine Kinase 99 Troponin I < 0.02 Total Protein 5.7 L Albumin 2.9 L Blood Type Antibody Screen 06/05/20 06/05/20 16:55 16:56 WBC RBC Hgb Hct MCV MCH MCHC RDW Plt Count MPV Absolute Neuts (auto) Neutrophils % Lymphocytes % Monocytes % Eosinophils % Basophils % Nucleated RBC % PT with INR INR PTT (Actin FS) Sodium Potassium Chloride Carbon Dioxide Anion Gap BUN Creatinine Est GFR (CKD-EPI)AfAm Est GFR (CKD-EPI)NonAf POC Glucometer 166 Random Glucose Calcium Total Bilirubin AST ALT Alkaline Phosphatase Creatine Kinase Troponin I Total Protein Albumin Blood Type A POSITIVE Antibody Screen Negative ASSESSMENT/PLAN: In summary Mr. White is a 65 year old male with a significant past medical history of ESRD (on HD , , Wed, last received dialysis on 06/04), NIDDM(not on meds), hx DVT (RLE), HTN, HLD, chronic anemia, generalized weakness, and dysphagia who presented from [facility] with a bleeding left upper extremity fistula. Per EMS, patient was hypoxic and hypotensive upon arrival. Upon evaluation in the ER he was found to have a thrombus to his left upper forearm fistula, neutropenia and community acquired pneuminia. He is being admitted to [facility] for further medical, heme/onc and v ascular evaluation. 1. Left Forearm AV Fistula Thrombus venous doppler with clot in draining vein of the fistula no further bleeding episodes noted, hgb 8.9/27.1(9.9/28.3 on 08/04/2019) coags reviewed Vascular consulted - Dr. Garland to evaluate graft tomorrow and will need HD on in the hospital. Will keep patient NPO after midnight no continuous therapeutic IV heparin drip/anticoagulation indicated at this time 2. Community Acquired Pneumonia CXR with early infiltrate, currently afebrile, neutropenia noted received one dosage of IV Cefipime and Vancomycin c/w IV cefipime and vancomycin COVID nasal swab obtained on 06/05 and follow up on results maintain strict contact and droplet isolation precautions maintain o2 sat >90% Infectious Diseases- Dr. Alexander consulted 3. Neutropenia no fever Heme/Oncology consulted - Dr. Lola MORAN consulted- Dr. Alexander repeat CBC in am 4. Hypertension improved SBP 140-150 c/w hydralazine, amlodipine,coreg and clonidine patch 5. Hyperlipidemia LFT's normal c/w statin therapy 6. Anemia of Chronic Disease hgb 8.9, hct 27.1(previously 9.9/28.3 07/2019) c/w folic acid repeat cbc in am 7. ESRD on HD Nephrology consulted- Dr. Siu Vascular consulted to evaluate AV graft tomorrow . He will need hemodialysis on . DVT Prophylaxis heparin 5000U sq BID SCD's FEN no IVF indicated BMP daily, replete electrolytes as needed NPO after midnight Visit type - Emergency Visit Emergency Visit: Yes ED Registration Date: 06/05/20 Care time: The patient presented to the Emergency Department on the above date and was hospitalized for further evaluation of their emergent condition. - New Patient This patient is new to me today: Yes Date on this admission: 06/06/20 - Critical Care Critical Care patient: No
[2020-06-05] MEDS: CEFEPIME HCL/D5W 1 GM/50 ML BAG IVPB ONE ×2 (20:46→20:49)
--- NOTE | 2020-06-05 21:02 | CON.HO ---
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 He is mildly confused. Requetsing several times to go back to his basement room at [facility] here he can talk o people. Oriented in person , thinks he is on the top floors and does not see anyone to talk to. Denies any complaints Tells that he was at dialysis No fever/chills/cough/SOB/abdominal pain/nausea/vomiting/diarrhe/urinary symptoms 65 year old male with a significant past medical history of ESRD (on HD , , Wed; last received dialysis yesterday), NIDDM(not on meds) , DVT (RLE), HTN, HLD, anemia, generalized weakness, and dysphagia who presented to the ED from [facility] with a bleeding left upper extremity fistula. As per EMS and [facility] staff, upon reassessment of the patient he was found to have a pool of blood around the site of his fistula. Nursing staff notes a history of bleeding to the fistula site, however, today it was slightly more than the usual. Per EMS, patient was hypoxic and hypotensive upon their arrival to ER Venous doppler of left upper forearm AV fistula demonstrated a thrombus. Vascular was consulted - Dr. Garland. CXR with early infiltrate, received one dosage of IV Cefipime and Vancomycin COVID nasal swab obtained and he is maintained on strict contact and droplet isolation precautions. Recent Travel: no PAST MEDICAL HISTORY: ESRD DM DVT(RLE) HTN HLD Anemia of chronic disease PAST SURGICAL HISTORY: LUE AV fistula Social History: Smoking:no Alcohol:no Drugs: no Family History noncontributory Allergies No Known Allergies Allergy (Verified 06/05/20 16:58) HOME MEDICATIONS: Home Medications Medication Instructions Recorded Acetaminophen [Tylenol] 650 mg PO Q6H PRN 07/19/18 Amlodipine Besylate [Norvasc -] 10 mg PO DAILY 07/19/18 Atorvastatin Ca [Lipitor] 10 mg PO HS 07/19/18 Calcium Acetate [Phoslo -] 667 mg PO TIDCM 07/19/18 Clonidine Patch [Catapres Tts 0.2 mg TD MCMULLEN 07/19/18 Patch -] Ergocalciferol [Vitamin D2] 50,000 unit PO MCMULLEN 07/19/18 Carvedilol [Coreg -] 25 mg PO BID 07/17/19 Folic Acid 1 mg PO DAILY 07/17/19 Lactobacillus Acidophilus [Bacid -] 1 cap PO DAILY 07/17/19 Mirtazapine 30 mg PO HS 07/17/19 Vitamin B Comp W-C [Nephro-Alejandro -] 0.8 mg PO DAILY 07/17/19 Pantoprazole Sodium [Protonix] 40 mg PO DAILY #60 tablet. 07/26/19 hydrALAZINE HCL [Apresoline -] 10 mg PO TID tablet 08/04/19 PHYSICAL EXAMINATION Vital Signs - 24 hr 06/05/20 06/05/20 17:00 18:53 Temperature 98.6 F Pulse Rate 88 Respiratory 22 H Rate Blood Pressure 148/79 O2 Sat by Pulse 99 99 Oximetry (%) General no acute distress Vital signs reviewed, hemodynamically stable, afebrile Lungs CTA nonlabored breathing effort no rales no wheezing Heart s1s2 rate regular Abdomen soft nontnder nondistended Extremities LUE AV fistula with no active bleeding or erthyema, -bruit/thrills Mood calm Laboratory Results - last 24 hr 06/05/20 06/05/20 06/05/20 16:55 16:55 16:55 WBC 2.4 L RBC 2.79 L Hgb 8.9 L Hct 27.1 L MCV 97.3 H MCH 31.8 MCHC 32.7 RDW 15.9 Plt Count 132 L D MPV 9.2 D Absolute Neuts (auto) 0.8 L Neutrophils % 34.5 L D Lymphocytes % 39.2 D Monocytes % 16.4 H Eosinophils % 8.0 H Basophils % 1.9 Nucleated RBC % 0 PT with INR 12.50 INR 1.06 PTT (Actin FS) 28.2 Sodium 132 L Potassium 4.9 Chloride 98 Carbon Dioxide 23 Anion Gap 11 BUN 36.4 H Creatinine 4.6 H Est GFR (CKD-EPI)AfAm 14.60 Est GFR (CKD-EPI)NonAf 12.60 POC Glucometer Random Glucose 180 H Calcium 8.5 Total Bilirubin 0.5 AST 38 H ALT 27 Alkaline Phosphatase 129 H Creatine Kinase 99 Troponin I < 0.02 Total Protein 5.7 L Albumin 2.9 L Blood Type Antibody Screen 06/05/20 06/05/20 16:55 16:56 WBC RBC Hgb Hct MCV MCH MCHC RDW Plt Count MPV Absolute Neuts (auto) Neutrophils % Lymphocytes % Monocytes % Eosinophils % Basophils % Nucleated RBC % PT with INR INR PTT (Actin FS) Sodium Potassium Chloride Carbon Dioxide Anion Gap BUN Creatinine Est GFR (CKD-EPI)AfAm Est GFR (CKD-EPI)NonAf POC Glucometer 166 Random Glucose Calcium Total Bilirubin AST ALT Alkaline Phosphatase Creatine Kinase Troponin I Total Protein Albumin Blood Type A POSITIVE Antibody Screen Negative ASSESSMENT/PLAN: In summary Mr. White is a 65 year old male with a significant past medical history of ESRD (on HD , , Wed, last received dialysis on 06/04), NIDDM(not on meds), hx DVT (RLE), HTN, HLD, chronic anemia, generalized weakness, and dysphagia who presented from [facility] with a bleeding left upper extremity fistula. Per EMS, patient was hypoxic and hypotensive upon arrival. Upon evaluation in the ER he was found to have a thrombus to his left upper forearm fistula, neutropenia and community acquired pneuminia. Leukopenia/ neutropenia r/o occult infction --cxr ? pneumonia check covid 19 chck blood and urine cultures check b12/folate/tsh/ft4 check sono liver/spleen
[2020-06-05] MEDS ORDERED: ATORVASTATIN CA 10 MG TABLET (FP) PO SCH (22:00)
[2020-06-05] MEDS ORDERED: MIRTAZAPINE 30 MG TABLET PO SCH (22:00)
[2020-06-05] MEDS: hydrALAZINE HCL 10 MG TABLET PO SCH (22:36)
[2020-06-05] MEDS: CARVEDILOL 25 MG TABLET (FP) PO SCH (22:36)
[2020-06-05] MEDS: HEPARIN NA (PORCINE) 5,000 UNITS/ML 1ML VIAL SQ SCH (22:37)
[2020-06-06 00:42] VITALS: BMI 33.2
[2020-06-06] MEDS: hydrALAZINE HCL 10 MG TABLET PO SCH ×3 (06:02→22:53)
[2020-06-06 08:54] LABS: BASO % 0.9 % (0-2.0); HEMATOCRIT 20.9 % (35.4-49); MCH 31.6 pg (25.7-33.7); MCHC 33.3 g/dl (32.0-35.9); MEAN CELL VOLUME 95.1 fl (80-96); MEAN PLT VOLUME 8.5 fl (7.5-11.1); MONO % 15.2 % (3.8-10.2); NEUT % 49.9 % (42.8-82.8); PLATELET COUNT 116 K/MM3 (134-434); RDW 15.5 % (11.9-15.9); WHITE BLOOD COUNT 3.5 K/mm3 (4.0-10.0)
--- NOTE | 2020-06-06 08:54 | CONSULT ---
Consult - text type - Consultation Consultation Note: 65 year old man from [facility], ESRD on HD who was found with bleeding from left arm access. Tight bandage placed and graft thrombosed. He had dialysis 2 days ago. Details of his AV access history are unknown, he is not followed at [facility]. AM labs pending, COVID pending. I spoke with Dr. Siu. He will try to get some information about his access history. Tentative plan for thrombectomy and venogram this afternoon.
[2020-06-06] MEDS: CALCIUM ACETATE 667 MG CAPSULE (FP) PO SCH ×3 (09:11→17:28)
[2020-06-06 09:23] LABS: BLOOD UREA NITROGEN 42.6 mg/dL (7-18); CALCIUM 8.4 mg/dL (8.5-10.1); CREATININE 5.6 mg/dL (0.55-1.3); POTASSIUM 3.9 mmol/L (3.5-5.1)
[2020-06-06] MEDS ORDERED: PANTOPRAZOLE 40 MG TABLET PO SCH (10:00)
[2020-06-06] MEDS ORDERED: CEFEPIME 0.5 GM in DEXTROSE 5%-WATER - 100 ML IVPB SCH (10:00)
[2020-06-06] MEDS ORDERED: amLODIPine BESYLATE 10 MG TABLET (FP) PO SCH (10:00)
[2020-06-06] MEDS ORDERED: VITAMIN B COMP W-C 1 EA TABLET (NEPHRO-VITE) PO SCH (10:00)
[2020-06-06] MEDS ORDERED: FOLIC ACID 1 MG TABLET (FP) PO SCH (10:00)
[2020-06-06] MEDS ORDERED: VANCOMYCIN 1 GM in D5W (PRE-DOCKED) 1,000 MG/250 ML IVPB SCH (10:00)
[2020-06-06] MEDS ORDERED: LACTOBACILLUS ACIDOPHILUS 1 TABLET PO SCH (10:00)
[2020-06-06] MEDS: CARVEDILOL 25 MG TABLET (FP) PO SCH ×2 (11:27→22:53)
--- NOTE | 2020-06-06 11:27 | CON.NEP ---
Consult Consult Specialty:: nephrology - History of Present Illness History of Present Illness: 65 year old male with a significant past medical history of ESRD (on HD , , Wed; last received dialysis yesterday), NIDDM(not on meds) , DVT (RLE), HTN, HLD, anemia, generalized weakness, and dysphagia who presented to the ED from [facility] with a bleeding left upper extremity fistula. As per EMS and [facility] staff, upon reassessment of the patient he was found to have a pool of blood around the site of his fistula. Nursing staff notes a history of bleeding to the fistula site, however, today it was slightly more than the usual. Per EMS, patient was hypoxic and hypotensive upon their arrival to ER I saw him today and he states he does not know why he is here. He feels well. Has no chest pain or dyspnea. He cant see well but says he recognizes my voice. Was lying flat comfortbaly - History Source History Provided By: Patient, Medical Record - Past Medical History Cardio/Vascular: Yes: CAD (s/p CABG), HTN, Hyperlipdemia Gastrointestinal: Yes: Constipation Renal/: Yes: Renal Failure, Hemodialysis - Past Surgical History Past Surgical History: Yes: CABG - Alcohol/Substance Use Hx Alcohol Use: No - Smoking History Smoking history: Unknown if ever smoked Have you smoked in the past 12 months: No Aproximately how many cigarettes per day: 0 - Social History Usual Living Arrangement: Long-Term ADL: Support Services Home Medications - Allergies Allergies/Adverse Reactions: Allergies Allergy/AdvReac Type Severity Reaction Status Date / Time No Known Allergies Allergy Verified 06/05/20 16:58 - Home Medications Home Medications: Ambulatory Orders Acetaminophen [Tylenol] 650 mg PO Q6H PRN 07/19/18 Amlodipine Besylate [Norvasc -] 10 mg PO DAILY 07/19/18 Atorvastatin Ca [Lipitor] 10 mg PO HS 07/19/18 Calcium Acetate [Phoslo -] 667 mg PO TIDCM 07/19/18 Clonidine Patch [Catapres Tts Patch -] 0.2 mg TD MCMULLEN 07/19/18 Ergocalciferol [Vitamin D2] 50,000 unit PO MCMULLEN 07/19/18 Carvedilol [Coreg -] 25 mg PO BID 07/17/19 Folic Acid 1 mg PO DAILY 07/17/19 Lactobacillus Acidophilus [Bacid -] 1 cap PO DAILY 07/17/19 Mirtazapine 30 mg PO HS 07/17/19 Vitamin B Comp W-C [Nephro-Alejandro -] 0.8 mg PO DAILY 07/17/19 Pantoprazole Sodium [Protonix] 40 mg PO DAILY #60 tablet. 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) HENT: reports: No Symptoms Neck: reports: No Symptoms Cardiovascular: reports: No Symptoms Respiratory: reports: No Symptoms Gastrointestinal: reports: No Symptoms Genitourinary: reports: No Symptoms Breasts: reports: No Symptoms Reported Musculoskeletal: reports: No Symptoms Integumentary: reports: No Symptoms Neurological: reports: No Symptoms Endocrine: reports: No Symptoms Hematology/Lymphatic: reports: No Symptoms Nephrology Consult - Height Height: 5 ft - Weight Weight: 170 lb - BMI Body Mass Index (BMI): 33.2 - Lab Results CBC,BMP: CBC, BMP 06/06/20 08:13 06/06/20 06:00 Anion Gap: Anion Gap Anion Gap 9 MMOL/L (8-16) 06/06/20 06:00 - Imaging Chest X-ray: Report Reviewed - Physical Examination Vital Signs: Vital Signs Temperature 97.8 F 06/06/20 10:23 Pulse Rate 58 L 06/06/20 10:23 Respiratory Rate 20 06/06/20 10:23 Blood Pressure 167/65 06/06/20 10:23 O2 Sat by Pulse Oximetry (%) 100 06/06/20 10:23 Constitutional: Yes: No Distress, Calm Eyes: Yes: Conjunctiva Clear HENT: Yes: Atraumatic, Normocephalic Neck: Yes: Supple, Trachea Midline Cardiovascular: Yes: Regular Rate and Rhythm Respiratory: Yes: Regular, CTA Bilaterally Gastrointestinal: Yes: Normal Bowel Sounds Access for Hemodialysis: AV Graft Musculoskeletal: Yes: WNL Extremities: Yes: WNL Edema: No Neurological: Yes: Alert, Oriented Psychiatric: Yes: Alert, Oriented Assessment/Plan IMPRESSION esrd htn s/p cabg pancytopenia Plan needs repair of avg heme follow up of pancytopenia will dialyze tomorrow if he is still here MV
[2020-06-06] MEDS: HEPARIN NA (PORCINE) 5,000 UNITS/ML 1ML VIAL SQ SCH ×2 (11:28→22:53)
--- NOTE | 2020-06-06 11:53 | EKG ---
Test Reason : Blood Pressure : / mmHG Vent. Rate : 057 BPM Atrial Rate : 057 BPM P-R Int : 184 ms QRS Dur : 084 ms QT Int : 482 ms P-R-T Axes : -07 -10 007 degrees QTc Int : 469 ms SINUS BRADYCARDIA POSSIBLE ANTERIOR INFARCT (CITED ON OR BEFORE 16-JUL-2019) ABNORMAL ECG WHEN COMPARED WITH ECG OF 27-JUL-2019 10:35, INCOMPLETE RIGHT BUNDLE BRANCH BLOCK IS NO LONGER PRESENT QUESTIONABLE CHANGE IN INITIAL FORCES OF SEPTAL LEADS Confirmed by NEETU WATTS MD ([id number]) on 06/06/2020 11:53:15 AM Referred By: Confirmed By:NEETU WATTS MD
--- NOTE | 2020-06-06 12:16 | PN ---
Progress Note (short form) - Note Progress Note: events noted Pt was found by me in the NH yesterday lying on the floor in a pool of blood -- blood was shooting out of the AVF-- he has a habit of picking at his AVF the AVF compressed by staff Now admitted for pneumonia, anemia- acute severe, pancytopenia awake and alert- confused at baseline Vital Signs - 24 hr 06/05/20 06/05/20 06/05/20 17:00 18:53 20:03 Temperature 98.6 F 97.6 F Pulse Rate 88 Pulse Rate [ 54 L Right Brachial] Respiratory 22 H Rate Blood Pressure 148/79 Blood Pressure 158/70 [Right Arm] O2 Sat by Pulse 99 99 100 Oximetry (%) 06/05/20 06/06/20 06/06/20 21:00 02:00 06:00 Temperature 97.6 F 98.1 F 98.1 F Pulse Rate 57 L 56 L 63 Pulse Rate [ Right Brachial] Respiratory 18 18 18 Rate Blood Pressure 150/58 L 131/55 L 154/64 Blood Pressure [Right Arm] O2 Sat by Pulse 100 100 Oximetry (%) 06/06/20 10:23 Temperature 97.8 F Pulse Rate 58 L Pulse Rate [ Right Brachial] Respiratory 20 Rate Blood Pressure 167/65 Blood Pressure [Right Arm] O2 Sat by Pulse 100 Oximetry (%) Current Medications Generic Name Dose Route Start Last Admin Trade Name Freq PRN Reason Stop Dose Admin Amlodipine Besylate 10 mg 06/06/20 10:00 06/06/20 11:27 Norvasc - PO 10 mg DAILY BRAD Administration Atorvastatin Calcium 10 mg 06/05/20 22:00 06/05/20 22:36 Lipitor - PO 10 mg HS BRAD Administration Calcium Acetate 667 mg 06/06/20 08:00 06/06/20 11:31 Phoslo - PO Not Given TIDCM BRAD Carvedilol 25 mg 06/05/20 22:00 06/06/20 11:27 Coreg - PO 25 mg BID BRAD Administration Clonidine HCl 0.2 mg 06/09/20 10:00 Catapres Tts Patch - TD Olivier@1000 BRAD Ergocalciferol 50,000 unit 06/09/20 10:00 Drisdol - PO Olivier@1000 BARD Folic Acid 1 mg 06/06/20 10:00 06/06/20 11:27 Folic Acid - PO 1 mg DAILY BRAD Administration Heparin Sodium (Porcine) 5,000 unit 06/05/20 22:00 06/06/20 11:28 Heparin - SQ 5,000 unit BID BRAD Administration Hydralazine HCl 10 mg 06/05/20 22:00 06/06/20 06:02 Apresoline - PO 10 mg TID BRAD Administration Cefepime HCl 0.5 gm/ Dextrose 100 mls @ 200 mls/hr 06/06/20 10:00 IVPB DAILY BRAD Protocol Lactobacillus Acidophilus 1 tab 06/06/20 10:00 06/06/20 11:31 Bacid - PO Not Given DAILY BRAD Mirtazapine 30 mg 06/05/20 22:00 06/05/20 22:36 Remeron - PO 30 mg HS BRAD Administration Multivit/Ca Carb/B Cmplx/FA/Prenat 1 tablet 06/06/20 10:00 06/06/20 11:27 Nephro-Alejandro - PO 1 tablet DAILY BRAD Administration Pantoprazole Sodium 40 mg 06/06/20 10:00 06/06/20 11:30 Protonix - PO 40 mg DAILY BRAD Administration Vancomycin HCl 1,000 mg 06/06/20 10:00 Vancomycin (Pre-Docked) IVPB DAILY BRAD Protocol Laboratory Results - last 24 hr 06/05/20 06/05/20 06/05/20 16:55 16:55 16:55 WBC 2.4 L RBC 2.79 L Hgb 8.9 L Hct 27.1 L MCV 97.3 H MCH 31.8 MCHC 32.7 RDW 15.9 Plt Count 132 L D MPV 9.2 D Absolute Neuts (auto) 0.8 L Neutrophils % 34.5 L D Lymphocytes % 39.2 D Monocytes % 16.4 H Eosinophils % 8.0 H Basophils % 1.9 Nucleated RBC % 0 PT with INR 12.50 INR 1.06 PTT (Actin FS) 28.2 Sodium 132 L Potassium 4.9 Chloride 98 Carbon Dioxide 23 Anion Gap 11 BUN 36.4 H Creatinine 4.6 H Est GFR (CKD-EPI)AfAm 14.60 Est GFR (CKD-EPI)NonAf 12.60 POC Glucometer Random Glucose 180 H Calcium 8.5 Total Bilirubin 0.5 AST 38 H ALT 27 Alkaline Phosphatase 129 H Creatine Kinase 99 Troponin I < 0.02 Total Protein 5.7 L Albumin 2.9 L Blood Type Antibody Screen 06/05/20 06/05/20 06/05/20 16:55 16:56 18:55 WBC RBC Hgb Hct MCV MCH MCHC RDW Plt Count MPV Absolute Neuts (auto) Neutrophils % Lymphocytes % Monocytes % Eosinophils % Basophils % Nucleated RBC % PT with INR INR PTT (Actin FS) Sodium Potassium Chloride Carbon Dioxide Anion Gap BUN Creatinine Est GFR (CKD-EPI)AfAm Est GFR (CKD-EPI)NonAf POC Glucometer 166 Random Glucose Calcium Total Bilirubin AST ALT Alkaline Phosphatase Creatine Kinase Troponin I Total Protein Albumin Blood Type A POSITIVE A POSITIVE Antibody Screen Negative Negative 06/06/20 06/06/20 06:00 08:13 WBC 3.5 L RBC 2.20 L Hgb 7.0 L Hct 20.9 L D MCV 95.1 MCH 31.6 MCHC 33.3 RDW 15.5 Plt Count 116 L MPV 8.5 Absolute Neuts (auto) 1.7 Neutrophils % 49.9 D Lymphocytes % 29.0 D Monocytes % 15.2 H Eosinophils % 5.0 H Basophils % 0.9 Nucleated RBC % 0 PT with INR INR PTT (Actin FS) Sodium 132 L Potassium 3.9 Chloride 95 L Carbon Dioxide 28 Anion Gap 9 BUN 42.6 H Creatinine 5.6 H Est GFR (CKD-EPI)AfAm 11.51 Est GFR (CKD-EPI)NonAf 9.93 POC Glucometer Random Glucose 90 Calcium 8.4 L Total Bilirubin AST ALT Alkaline Phosphatase Creatine Kinase Troponin I Total Protein Albumin Blood Type Antibody Screen S1 S RRR lungs decreased Abd-soft, NT No edema no thrill or bruit on avf PLAN for declotting today PRBC tomorrow during dialysis continue with meds iv antibiotics for presumed pneumonia-- small infiltrate on CXR Hematology eval noted Problem List - Problems (1) AV graft thrombosis Code(s): T82.868A - THROMBOSIS DUE TO VASCULAR PROSTH DEV/GRFT, INIT (2) Bleeding from dialysis shunt Code(s): T82.838A - HEMORRHAGE DUE TO VASCULAR PROSTH DEV/GRFT, INIT (3) Neutropenia Code(s): D70.9 - NEUTROPENIA, UNSPECIFIED (4) Pneumonia Code(s): J18.9 - PNEUMONIA, UNSPECIFIED ORGANISM (5) Acute on chronic diastolic heart failure Code(s): I50.33 - ACUTE ON CHRONIC DIASTOLIC (CONGESTIVE) HEART FAILURE (6) Altered mental status Code(s): R41.82 - ALTERED MENTAL STATUS, UNSPECIFIED (7) CAD (coronary artery disease) Code(s): I25.10 - ATHSCL HEART DISEASE OF [place] CORONARY ARTERY W/O ANG PCTRS Qualifiers: Coronary Disease-Associated Artery/Lesion type: [place] artery [place] vs. transplanted heart: [place] heart Associated angina: without angina Qualified Code(s): I25.10 - Atherosclerotic heart disease of [place] coronary artery without angina pectoris
[2020-06-06] MEDS ORDERED: LIDOCAINE HCL 1%, 10 MG/ML (20ML VIAL) ONE (15:05)
[2020-06-06] MEDS ORDERED: HEPARIN NA (PORCINE) 5,000 UNITS/ML 1ML VIAL ONE ×3 (15:05→15:30)
[2020-06-06] MEDS ORDERED: ONDANSETRON 4 MG/2 ML VIAL IVPUSH PRN ×2 (15:22→19:30)
[2020-06-06] MEDS ORDERED: PROMETHAZINE HCL 25 MG/1 ML VIAL IVPB PRN ×2 (15:22→19:30)
[2020-06-06] MEDS ORDERED: SODIUM CHLORIDE 1,000 ML IV SCH ×2 (15:30→19:30)
[2020-06-06] MEDS ORDERED: MIDAZOLAM HCL 2 MG/2 ML SINGLE DOSE VIAL ONE (16:06)
[2020-06-06] MEDS ORDERED: PROPOFOL 20 ML ONE (16:07)
[2020-06-06] MEDS ORDERED: HEPARIN NA (PORCINE) 5,000 UNITS/ML 1ML VIAL SQ ONE (17:44)
[2020-06-06] MEDS ORDERED: LIDOCAINE HCL 1%, 10 MG/ML (20ML VIAL) NR ONE ×2 (17:44)
[2020-06-06] MEDS ORDERED: IOHEXOL 300 MG/ML INFUS..BTL IV ONE (17:44)
[2020-06-06] MEDS ORDERED: POVIDONE-IODINE OINTMENT 10% - 28.4 GM TUBE TP ONE (18:13)
--- NOTE | 2020-06-06 18:23 | OP ---
Operative Note - Note: Operative Date: 06/06/20 Pre-Operative Diagnosis: Clotted AV graft Operation: Open thrombectomy and venogram left arm AV graft Findings: Thrombosed AV graft No anastomotic stenosis. Post-Operative Diagnosis: Same as Pre-op Surgeon: Aman Garland Anesthesiologist/SLUMBER ROOM ATTENDANT: Mildred Martines Anesthesia: Fractional Specimens Removed: Clot Estimated Blood Loss (mls): 50
[2020-06-06] MEDS ORDERED: PT OWN MED DRAWER 7, Y5N ONE (22:52)
[2020-06-06] MEDS: ATORVASTATIN CA 10 MG TABLET (FP) PO SCH (22:53)
[2020-06-06] MEDS: MIRTAZAPINE 30 MG TABLET PO SCH (22:53)
[2020-06-07] MEDS: hydrALAZINE HCL 10 MG TABLET PO SCH ×3 (05:58→22:26)
[2020-06-07 08:46] LABS: HEMATOCRIT 17.5 % (35.4-49); MCH 31.3 pg (25.7-33.7); MCHC 32.7 g/dl (32.0-35.9); MEAN CELL VOLUME 95.9 fl (80-96); MEAN PLT VOLUME 8.7 fl (7.5-11.1); PLATELET COUNT 122 K/MM3 (134-434); RBC 1.82 M/mm3 (4.00-5.60); RDW 15.3 % (11.9-15.9); WHITE BLOOD COUNT 3.4 K/mm3 (4.0-10.0)
[2020-06-07] MEDS: CALCIUM ACETATE 667 MG CAPSULE (FP) PO SCH ×3 (09:10→17:28)
[2020-06-07] MEDS: PANTOPRAZOLE 40 MG TABLET PO SCH (09:13)
[2020-06-07] MEDS: amLODIPine BESYLATE 10 MG TABLET (FP) PO SCH (09:14)
[2020-06-07] MEDS: LACTOBACILLUS ACIDOPHILUS 1 TABLET PO SCH (09:14)
[2020-06-07] MEDS: HEPARIN NA (PORCINE) 5,000 UNITS/ML 1ML VIAL SQ SCH ×2 (09:14→22:27)
[2020-06-07] MEDS: VITAMIN B COMP W-C 1 EA TABLET (NEPHRO-VITE) PO SCH (09:14)
[2020-06-07] MEDS: CARVEDILOL 25 MG TABLET (FP) PO SCH ×2 (09:14→22:26)
[2020-06-07] MEDS: FOLIC ACID 1 MG TABLET (FP) PO SCH (09:14)
[2020-06-07 09:23] LABS: IRON SERUM 37 ug/dL (50-175); TOTAL IRON BINDING CAPACITY 177 ug/dL (250-450)
[2020-06-07 09:33] LABS: HEMOGLOBIN 5.7 GM/dL (11.7-16.9)
[2020-06-07] MEDS ORDERED: CEFEPIME 0.5 GM in DEXTROSE 5%-WATER - 100 ML IVPB SCH (10:00)
[2020-06-07] MEDS ORDERED: VANCOMYCIN 1 GM in D5W (PRE-DOCKED) 1,000 MG/250 ML IVPB SCH (10:00)
--- NOTE | 2020-06-07 12:38 | PN ---
Progress Note (short form) - Note Progress Note: ID consult dictated admitted from ID 06/05 with bleeding AVF- thrombosis started on vanco/cefepime -received 2 doses s/p thrombectomy yesterday with post op fever to 101- resolved now afebrile no cough feels well cxray c/w atelectasis with small bilateral pleural effusions no need to treat for pneumonia, add incentive spirometry s/p repair of thrombosed avf post op fever resolved leukopenia/thrombocytopenia- noted in the past as well, ?prior w/u, ?liver disease, ?hiv status-negative in 2019 would workup with cultures and repeat cxay if he has further fever would observe off antibitocs for now anemia-s/p bleeding from afv- transfuse per PMD Problem List - Problems (1) AV graft thrombosis Code(s): T82.868A - THROMBOSIS DUE TO VASCULAR PROSTH DEV/GRFT, INIT (2) Bleeding from dialysis shunt Code(s): T82.838A - HEMORRHAGE DUE TO VASCULAR PROSTH DEV/GRFT, INIT (3) Atelectasis Code(s): J98.11 - ATELECTASIS (4) ESRD (end stage renal disease) Code(s): N18.6 - END STAGE RENAL DISEASE (5) Postoperative fever Code(s): R50.82 - POSTPROCEDURAL FEVER (6) Leukopenia Code(s): D72.819 - DECREASED WHITE BLOOD CELL COUNT, UNSPECIFIED (7) Thrombocytopenia Code(s): D69.6 - THROMBOCYTOPENIA, UNSPECIFIED
--- NOTE | 2020-06-07 12:38 | PN ---
Progress Note (short form) - Note Progress Note: RENAL pt is awake and alert had a thrombectomy yesterday feels well Last Vital Signs Temp Pulse Resp BP Pulse Ox 98 F 61 20 133/61 98 06/07/20 08:52 06/07/20 08:52 06/07/20 08:52 06/07/20 08:52 06/07/20 09:00 tmax 101.7 lungs clear anteriorly cvs s1s2 rr abd soft ext no edema, left avf has a thrill neuro a+ox3 CBC, BMP 06/07/20 07:35 06/06/20 06:00 Current Medications Generic Name Dose Route Start Last Admin Trade Name Freq PRN Reason Stop Dose Admin Amlodipine Besylate 10 mg 06/07/20 10:00 06/07/20 09:14 Norvasc - PO 10 mg DAILY BRAD Administration Atorvastatin Calcium 10 mg 06/06/20 22:00 06/06/20 22:53 Lipitor - PO 10 mg HS BRAD Administration Calcium Acetate 667 mg 06/07/20 08:00 06/07/20 12:01 Phoslo - PO 667 mg TIDCM BRAD Administration Carvedilol 25 mg 06/06/20 22:00 06/07/20 09:14 Coreg - PO 25 mg BID BRAD Administration Clonidine HCl 0.2 mg 06/09/20 10:00 Catapres Tts Patch - TD Olivier@1000 BRAD Ergocalciferol 50,000 unit 06/09/20 10:00 Drisdol - PO Olivier@1000 BRAD Folic Acid 1 mg 06/07/20 10:00 06/07/20 09:14 Folic Acid - PO 1 mg DAILY BRAD Administration Heparin Sodium (Porcine) 5,000 unit 06/06/20 22:00 06/07/20 09:14 Heparin - SQ 5,000 unit BID BRAD Administration Hydralazine HCl 10 mg 06/06/20 22:00 06/07/20 05:58 Apresoline - PO 10 mg TID BRAD Administration Cefepime HCl 0.5 gm/ Dextrose 100 mls @ 200 mls/hr 06/07/20 10:00 IVPB DAILY BRAD Protocol Sodium Chloride 1,000 mls @ 42 mls/hr 06/06/20 19:30 06/06/20 19:49 Normal Saline - IV 42 mls/hr ASDIR BRAD Administration Lactobacillus Acidophilus 1 tab 06/07/20 10:00 06/07/20 09:14 Bacid - PO 1 tab DAILY BRAD Administration Mirtazapine 30 mg 06/06/20 22:00 06/06/20 22:53 Remeron - PO 30 mg HS BRAD Administration Multivit/Ca Carb/B Cmplx/FA/Prenat 1 tablet 06/07/20 10:00 06/07/20 09:14 Nephro-Alejandro - PO 1 tablet DAILY BRAD Administration Pantoprazole Sodium 40 mg 06/07/20 10:00 06/07/20 09:13 Protonix - PO 40 mg DAILY BRAD Administration Vancomycin HCl 1,000 mg 06/07/20 10:00 Vancomycin (Pre-Docked) IVPB DAILY [facility] Protocol IMPESSION esrd anemia had a transient post op fever deentia h/o cad s/p cabg PLAN will order hemodialysis for today will transfuse dc ivf and feed continue antihypertensives MV
--- NOTE | 2020-06-07 12:42 | PN ---
Progress Note, Physician History of Present Illness: Pt seen/ examined chart reviewed wake/ comfortable denies pain poor historian Confused s/p Thrombectomy yesterday Dialysis later today transfusion also ordered as well as Ammonia level d/w RN also Gi consult also requested due to recent high Ammonia level in jail u/s also shows hepatocellular disease - Current Medication List Current Medications: Active Medications Amlodipine Besylate (Norvasc -) 10 mg PO DAILY [facility] Last Admin: 06/07/20 09:14 Dose: 10 mg Documented by: Atorvastatin Calcium (Lipitor -) 10 mg PO HS [facility] Last Admin: 06/06/20 22:53 Dose: 10 mg Documented by: Calcium Acetate (Phoslo -) 667 mg PO TIDCM [facility] Last Admin: 06/07/20 12:01 Dose: 667 mg Documented by: Carvedilol (Coreg -) 25 mg PO BID [facility] Last Admin: 06/07/20 09:14 Dose: 25 mg Documented by: Clonidine HCl (Catapres Tts Patch -) 0.2 mg TD Olivier@1000 [facility] Ergocalciferol (Drisdol -) 50,000 unit PO Olivier@1000 [facility] Folic Acid (Folic Acid -) 1 mg PO DAILY [facility] Last Admin: 06/07/20 09:14 Dose: 1 mg Documented by: Heparin Sodium (Porcine) (Heparin -) 5,000 unit SQ BID [facility] Last Admin: 06/07/20 09:14 Dose: 5,000 unit Documented by: Hydralazine HCl (Apresoline -) 10 mg PO TID [facility] Last Admin: 06/07/20 05:58 Dose: 10 mg Documented by: Cefepime HCl 0.5 gm/ Dextrose 100 mls @ 200 mls/hr IVPB DAILY [facility]; Protocol Sodium Chloride (Normal Saline -) 1,000 mls @ 42 mls/hr IV ASDIR [facility] Last Admin: 06/06/20 19:49 Dose: 42 mls/hr Documented by: Lactobacillus Acidophilus (Bacid -) 1 tab PO DAILY [facility] Last Admin: 06/07/20 09:14 Dose: 1 tab Documented by: Mirtazapine (Remeron -) 30 mg PO HS [facility] Last Admin: 06/06/20 22:53 Dose: 30 mg Documented by: Multivit/Ca Carb/B Cmplx/FA/Prenat (Nephro-Alejandro -) 1 tablet PO DAILY [facility] Last Admin: 06/07/20 09:14 Dose: 1 tablet Documented by: Pantoprazole Sodium (Protonix -) 40 mg PO DAILY [facility] Last Admin: 06/07/20 09:13 Dose: 40 mg Documented by: Vancomycin HCl (Vancomycin (Pre-Docked)) 1,000 mg IVPB DAILY [facility]; Protocol - Objective Vital Signs: Vital Signs Temperature 98 F 06/07/20 08:52 Pulse Rate 61 06/07/20 08:52 Respiratory Rate 20 06/07/20 08:52 Blood Pressure 133/61 06/07/20 08:52 O2 Sat by Pulse Oximetry (%) 98 06/07/20 09:00 Constitutional: Yes: No Distress Neck: Yes: Supple Cardiovascular: Yes: Regular Rate and Rhythm Respiratory: Yes: Diminished Edema: No Labs: CBC, BMP 06/07/20 07:35 06/06/20 06:00 INR, PTT INR 1.06 (0.83-1.09) 06/05/20 16:55 - ....Imaging Ultrasound: Report Reviewed EKG: Report Reviewed Assessment/Plan Plan as discussed/ mentioned before Transfusion with dialysis gi consult Ammonia level will follow pt is DNR
[2020-06-07] MEDS ORDERED: SODIUM CHLORIDE 250 ML IV PRN (12:44)
--- NOTE | 2020-06-07 16:23 | PN ---
Progress Note (short form) - Note Progress Note: Vascular Surgery note: Pt without any complaints of pain Vital Signs Period Temp Pulse Resp BP Sys/Chiang Pulse Ox Last 24 Hr 97 F-101.9 F 60-90 14-20 14-160/47-80 93-100 GEN: A&0x3, NAD LUE: positive thrill, deonte c/d/i no evidence of bleeding/hand warm CBC, BMP 06/07/20 07:35 06/06/20 06:00 A/p: 65 yo male s/p Open thrombectomy and venogram left arm AV graft, POD#1 Plan is for HD today, will give blood during HD Local wound care/dry dressing to [facility] D/w Dr. Garland
--- NOTE | 2020-06-07 16:29 | CON.GI ---
Consult Consult Specialty:: Gastroenterology ( covering the [facility]) Referred by:: Dr Davenport Reason for Consultation:: Cirrhosis - History of Present Illness Chief Complaint: Bleeding AV fistula History of Present Illness: 65M with ESRD admitted for bleeding at his LUE AV fistula. He underwent corrective surgery for this with DR Garland yesterday. Today his Hb has dropped to 5.7. The nurses report no bleeding. He is well known to the GI service. He had multiple tubular adenomas removed by Dr. Cornejo on 07/25/20 foll owed by bleeding that did not require repeat colonoscopy. He has no record of an EGd and cannot recal having had one done. He is communicative and cooperative. He denies alcohol abuse or known liver disease. 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 Cardio/Vascular: Yes: CAD (s/p CABG), HTN, Hyperlipdemia Gastrointestinal: Yes: Constipation, Diverticulosis, Other (Multiple colon adenomas removed 08/10) Hepatobiliary: Yes: Other Renal/: Yes: Renal Failure, Hemodialysis - Past Surgical History Past Surgical History: Yes: CABG, Colonoscopy Additional Surgical History: LUE AV fistula - Alcohol/Substance Use Hx Alcohol Use: No - Smoking History Smoking history: Unknown if ever smoked Have you smoked in the past 12 months: No Aproximately how many cigarettes per day: 0 - Social History Usual Living Arrangement: Longterm ADL: Support Services Home Medications - Allergies Allergies/Adverse Reactions: Allergies Allergy/AdvReac Type Severity Reaction Status Date / Time No Known Allergies Allergy Verified 06/05/20 16:58 - Home Medications Home Medications: Ambulatory Orders Acetaminophen [Tylenol] 650 mg PO Q6H PRN 07/19/18 Amlodipine Besylate [Norvasc -] 10 mg PO DAILY 07/19/18 Atorvastatin Ca [Lipitor] 10 mg PO HS 07/19/18 Calcium Acetate [Phoslo -] 667 mg PO TIDCM 07/19/18 Clonidine Patch [Catapres Tts Patch -] 0.2 mg TD MCMULLEN 07/19/18 Ergocalciferol [Vitamin D2] 50,000 unit PO MCMULLEN 07/19/18 Carvedilol [Coreg -] 25 mg PO BID 07/17/19 Folic Acid 1 mg PO DAILY 07/17/19 Lactobacillus Acidophilus [Bacid -] 1 cap PO DAILY 07/17/19 Mirtazapine 30 mg PO HS 07/17/19 Vitamin B Comp W-C [Nephro-Alejandro -] 0.8 mg PO DAILY 07/17/19 Pantoprazole Sodium [Protonix] 40 mg PO DAILY #60 tablet. 07/26/19 hydrALAZINE HCL [Apresoline -] 10 mg PO TID tablet 08/04/19 Family Medical History Family History: Unable to Obtain Review of Systems Unable to obtain ROS, reason: dementia Physical Exam-GI Vital Signs: Vital Signs Temperature 98.5 F 06/07/20 14:00 Pulse Rate 65 06/07/20 14:00 Respiratory Rate 20 06/07/20 14:00 Blood Pressure 126/55 L 06/07/20 14:00 O2 Sat by Pulse Oximetry (%) 93 L 06/07/20 14:00 CBC,CMP WBC 3.4 K/mm3 (4.0-10.0) L 06/07/20 07:35 RBC 1.82 M/mm3 (4.00-5.60) L 06/07/20 07:35 Hgb 5.7 GM/dL (11.7-16.9) L* 06/07/20 07:35 Hct 17.5 % (35.4-49) L D 06/07/20 07:35 MCV 95.9 fl (80-96) 06/07/20 07:35 MCH 31.3 pg (25.7-33.7) 06/07/20 07:35 MCHC 32.7 g/dl (32.0-35.9) 06/07/20 07:35 RDW 15.3 % (11.9-15.9) 06/07/20 07:35 Plt Count 122 K/MM3 (134-434) L 06/07/20 07:35 MPV 8.7 fl (7.5-11.1) 06/07/20 07:35 Absolute Neuts (auto) 1.7 K/mm3 (1.5-8.0) 06/06/20 08:13 Neutrophils % 49.9 % (42.8-82.8) D 06/06/20 08:13 Lymphocytes % 29.0 % (8-40) D 06/06/20 08:13 Monocytes % 15.2 % (3.8-10.2) H 06/06/20 08:13 Eosinophils % 5.0 % (0-4.5) H 06/06/20 08:13 Basophils % 0.9 % (0-2.0) 06/06/20 08:13 Nucleated RBC % 0 % (0-0) 06/06/20 08:13 Retic Count 3.34 % (0.5-1.5) H D 06/07/20 07:35 Sodium 132 mmol/L (136-145) L 06/06/20 06:00 Potassium 3.9 mmol/L (3.5-5.1) 06/06/20 06:00 Chloride 95 mmol/L (98-107) L 06/06/20 06:00 Carbon Dioxide 28 mmol/L (21-32) 06/06/20 06:00 Anion Gap 9 MMOL/L (8-16) 06/06/20 06:00 BUN 42.6 mg/dL (7-18) H 06/06/20 06:00 Creatinine 5.6 mg/dL (0.55-1.3) H 06/06/20 06:00 Est GFR (CKD-EPI)AfAm 11.51 06/06/20 06:00 Est GFR (CKD-EPI)NonAf 9.93 06/06/20 06:00 POC Glucometer 166 UNITS (80-120) 06/05/20 16:56 Random Glucose 90 mg/dL (74-106) 06/06/20 06:00 Calcium 8.4 mg/dL (8.5-10.1) L 06/06/20 06:00 Iron 37 ug/dL (50-175) L 06/07/20 07:35 TIBC 177 ug/dL (250-450) L 06/07/20 07:35 Iron Saturation 20 % (17.5-39) 06/07/20 07:35 Unsaturated IBC 140 ug/dL (200-275) L 06/07/20 07:35 Total Bilirubin 0.5 mg/dL (0.2-1) 06/05/20 16:55 AST 38 U/L (15-37) H 06/05/20 16:55 ALT 27 U/L (13-61) 06/05/20 16:55 Alkaline Phosphatase 129 U/L (45-117) H 06/05/20 16:55 Ammonia 17.40 umol/L (11-32) 06/07/20 10:03 LD Total 138 U/L (87-246) 06/07/20 07:35 Creatine Kinase 99 U/L (26-308) 06/05/20 16:55 Troponin I < 0.02 ng/ml (0.00-0.05) 06/05/20 16:55 Total Protein 5.7 g/dl (6.4-8.2) L 06/05/20 16:55 Albumin 2.9 g/dl (3.4-5.0) L 06/05/20 16:55 Vitamin B12 1345 pg/ml (193-986) H 06/07/20 07:35 TSH 2.27 uIU/ml (0.358-3.74) D 06/07/20 07:35 Free T4 1.01 ng/dl (0.76-1.16) 06/07/20 07:35 Current Medications Generic Name Dose Route Start Last Admin Trade Name Robertoq PRN Reason Stop Dose Admin Amlodipine Besylate 10 mg 06/07/20 10:00 06/07/20 09:14 Norvasc - PO 10 mg DAILY BRAD Administration Atorvastatin Calcium 10 mg 06/06/20 22:00 06/06/20 22:53 Lipitor - PO 10 mg HS BRAD Administration Calcium Acetate 667 mg 06/07/20 08:00 06/07/20 12:01 Phoslo - PO 667 mg TIDCM BRAD Administration Carvedilol 25 mg 06/06/20 22:00 06/07/20 09:14 Coreg - PO 25 mg BID BRAD Administration Clonidine HCl 0.2 mg 06/09/20 10:00 Catapres Tts Patch - TD Mcmullen@1000 BRAD Ergocalciferol 50,000 unit 06/09/20 10:00 Drisdol - PO Mcmullen@1000 BRAD Folic Acid 1 mg 06/07/20 10:00 06/07/20 09:14 Folic Acid - PO 1 mg DAILY BRAD Administration Heparin Sodium (Porcine) 5,000 unit 06/06/20 22:00 06/07/20 09:14 Heparin - SQ 5,000 unit BID BRAD Administration Hydralazine HCl 10 mg 06/06/20 22:00 06/07/20 14:24 Apresoline - PO 10 mg TID BRAD Administration Sodium Chloride 250 mls @ 3,000 mls/hr 06/07/20 12:44 Normal Saline - IV 06/08/20 12:44 PRN PRN Hypotension during Dialysis Lactobacillus Acidophilus 1 tab 06/07/20 10:00 06/07/20 09:14 Bacid - PO 1 tab DAILY BRAD Administration Mirtazapine 30 mg 06/06/20 22:00 06/06/20 22:53 Remeron - PO 30 mg HS BRAD Administration Multivit/Ca Carb/B Cmplx/FA/Prenat 1 tablet 06/07/20 10:00 06/07/20 09:14 Nephro-Alejandro - PO 1 tablet DAILY BRAD Administration Pantoprazole Sodium 40 mg 06/07/20 10:00 06/07/20 09:13 Protonix - PO 40 mg DAILY BRAD Administration Constitutional: Yes: Calm Eyes: Yes: Conjunctiva Clear HENT: Yes: Atraumatic Neck: Yes: Trachea Midline Cardiovascular: Yes: Regular Rate and Rhythm, Other (healed median sternotomy incision) Respiratory: Yes: CTA Bilaterally Gastrointestinal Inspection: Yes: WNL, Other (no flank hematomas) ...Auscultate: Yes: Normoactive Bowel Sounds ...Palpate: Yes: Soft, Other (nontender) ...Rectal Exam: Yes: Guaiac Negative (2+ prostate, brown guaiac negative stool) Extremities: Yes: Other (LUE AV fistula) Neurological: Yes: Alert Labs: CBC, BMP 06/07/20 07:35 06/06/20 06:00 INR, PTT INR 1.06 (0.83-1.09) 06/05/20 16:55 Laboratory Tests 09/23/18 09/24/18 07/18/19 08:00 11:55 09:30 Plt Count PT with INR Iron Iron Saturation Ammonia < 10.00 L Albumin CLARICE Screen COVID-19 (ANGELA) Hep A IgM Ab Confirm Negative Hepatitis A Ab Total Positive H Hep Bs Antibody Reactive Hep B Core Total Ab Negative Hep Bs Antigen Hep C Ab Diagnostic <0.1 07/18/19 07/20/19 06/05/20 09:30 06:48 16:55 Plt Count PT with INR 12.50 Iron Iron Saturation Ammonia Albumin CLARICE Screen Negative COVID-19 (ANGELA) Hep A IgM Ab Confirm Hepatitis A Ab Total Hep Bs Antibody Hep B Core Total Ab Hep Bs Antigen Negative Hep C Ab Diagnostic 06/05/20 06/05/20 06/07/20 16:55 17:30 07:35 Plt Count 122 L PT with INR Iron Iron Saturation Ammonia Albumin 2.9 L CLARICE Screen COVID-19 (ANGELA) Not detected Hep A IgM Ab Confirm Hepatitis A Ab Total Hep Bs Antibody Hep B Core Total Ab Hep Bs Antigen Hep C Ab Diagnostic 06/07/20 06/07/20 07:35 10:03 Plt Count PT with INR Iron 37 L Iron Saturation 20 Ammonia 17.40 Albumin CLARICE Screen COVID-19 (ANGELA) Hep A IgM Ab Confirm Hepatitis A Ab Total Hep Bs Antibody Hep B Core Total Ab Hep Bs Antigen Hep C Ab Diagnostic Problem List - Problems (1) Anemia Code(s): D64.9 - ANEMIA, UNSPECIFIED (2) Colon adenomas Code(s): D12.6 - BENIGN NEOPLASM OF COLON, UNSPECIFIED (3) Diverticulosis Code(s): K57.90 - DVRTCLOS OF INTEST, PART UNSP, W/O PERF OR ABSCESS W/O BLEED (4) AV graft thrombosis Code(s): T82.868A - THROMBOSIS DUE TO VASCULAR PROSTH DEV/GRFT, INIT (5) Bleeding from dialysis shunt Code(s): T82.838A - HEMORRHAGE DUE TO VASCULAR PROSTH DEV/GRFT, INIT (6) ESRD (end stage renal disease) Code(s): N18.6 - END STAGE RENAL DISEASE (7) HTN (hypertension) Code(s): I10 - ESSENTIAL (PRIMARY) HYPERTENSION Assessment/Plan Impression: - The anemia seems to be equilibration from AV fistula site bleed. It is currently clean. No occult GI bleeding is found. - Other than thrombocytopenia I find no evidence for cirrhosis. Hiliver is normal sized as is his spleen and no ascites is seen. His INR and LFTs are unremarkable and hepatits screening reveals no underlying etiology - Personal h/o multiple colon adenomas and diverticulosis Plan: - Transfuse - PPI for stress prophylaxis -Liver studies DR Mitchell will be covering this weekend. Dr Gutiérrez will return next weekl
--- NOTE | 2020-06-07 17:47 | PATH ---
Surgical Pathology Report Patient Name: GRAHAM LINDER Med. Rec. #: [id number] /Age/Gender: 1955 (Age: 65) / M Account: [id number] Location: [address] [place] [address]/[facility] Taken: 06/06/2020 Received: 06/06/2020 Reported: 06/07/2020 Physicians: Lola Lazaro M.D. Specimen(s) Received PERIPHERAL BLOOD Clinical History Pancytopenia Final Diagnosis COMPREHENSIVE FLOW CYTOMETRY performed and interpreted at [facility], [place], [place] ([id number]) INTERPRETATION: No atypical flow cytometric findings seen. Phenotype: Lymphocytes include polyclonal B cells, NK cells and immunophenotypically normal CD4+ and CD8+ T cells in normal proportions. No evidence of a clonal lymphoid expansion. Granulocytes are immunophenotypically mature. See [facility] report for additional details. Electronically Signed Rosana Alejandro M.D. Addendum Reported: 06/12/2020 Addendum Diagnosis MYELODYSPLASIA FISH PANEL performed and interpreted at [facility] in [place], [place] ([id number]) shows the following. INTERPRETATION: No evidence of deletion 5q or monosomy 5 is present. No evidence of deletion 7q or monosomy 7 is present. No evidence of trisomy 8 (+8) is present. No evidence of deletion 13q14.2 is present. No evidence of a rearrangement of 11q23. No evidence of a deletion of the p53 (17p13) locus. No evidence of deletion 20q12 is present. CYTOGENETIC KARYOTYPE ANALYSIS performed and interpreted at [place], [place] ([id number]) TEST RESULTS: Tissue Culture Failure. DIAGNOSTIC INTERPRETATION: This unstimulated peripheral blood specimen did not produce any analyzable metaphase cells and, therefore, chromosome analysis is not possible. A bone marrow aspirate, when clinically appropriate, is recommended. See [facility] reports for details. Rosana Alejandro M.D. Gross Description Received are 2 green top tubes and 2 purple top tubes of blood which are sent to [facility]. DL/06/07/2020 saudi/06/07/2020
--- NOTE | 2020-06-07 18:35 | CONS ---
DATE OF CONSULTATION: DATE OF DICTATION: 06/07/2020 INFECTIOUS DISEASE CONSULTATION HISTORY OF PRESENT ILLNESS: This is a 65-year-old man who is admitted from the intermediate on the with bleeding from his AV fistula, was noted to have thrombosis at the site. He was started on vancomycin and cefepime, which he received on the as well as the . I am asked to see him for further evaluation. He is status post thrombectomy on the , had a postoperative fever of 101 that is now resolved. He is awake and alert with no complaints. He feels well. PAST MEDICAL HISTORY: Notable for end-stage renal disease, he is on dialysis [id number], noninsulin dependent diabetes, right lower extremity DVT, hypertension, hyperlipidemia, anemia, dysphagia. He is reported to be DNR as well. SURGICAL HISTORY: Notable for the fistula. SOCIAL HISTORY: Not available. FAMILY HISTORY: Noncontributory. ALLERGIES: No known drug allergies. MEDICATION: Include: 1. Amlodipine. 2. Atorvastatin. 3. PhosLo. 4. Clonidine. 5. Vitamin D. 6. Coreg. 7. Folic acid. 8. Bacillus. 9. Mirtazapine. 10. Vitamin D. 11. Pantoprazole. 12. Hydralazine. REVIEW OF SYSTEMS: He Felipe any cough. He denies any fevers. He reports doing well. PHYSICAL EXAMINATION: Vital Signs: Temperature 98. He had a fever of 101.9 overnight, pulse 61, blood pressure 130/61, respiratory rate 20, saturating 100% on room air. HEENT: Normocephalic. Eyes are anicteric. Neck: Supple. Lungs: Clear to auscultation. He has diminished breath sounds at the bases. Heart: Regular rate and rhythm. Abdomen: Soft, nontender. He has a postoperative dressing on his left arm. Extremities: Without edema. LABORATORY: White count 3.4, hemoglobin is 5.7, platelets of 122, reticulocyte is 3.3. BUN and creatinine are 42 and 5.6. LFTs: AST of 39, alkaline phosphatase 129. COVID PCR is pending. Blood cultures were negative after 24 hours. Chest x-ray was reviewed with radiology. He has small bilateral effusions with some atelectasis at the right base. IMPRESSION: In summary, this is a 65-year-old man who has no cough. Chest x-ray consistent with atelectasis. No need to treat for pneumonia at this time. He is status post repair of thrombosed arteriovenous fistula and negative blood cultures. Postoperative fever which is resolved. Leukopenia, thrombocytopenia, noted in the past as well with question on prior workup he had for liver disease. He was HIV tested in 2019 and is negative. Would work up blood cultures and repeat chest x-ray if he has further fever, would observe off antibiotics for now. Case was discussed with Dr. Thompson, his advertising vice president. HENNA SARAH M.D. [id number]
[2020-06-07] MEDS: ATORVASTATIN CA 10 MG TABLET (FP) PO SCH (22:26)
[2020-06-07] MEDS: MIRTAZAPINE 30 MG TABLET PO SCH (22:26)
[2020-06-08] MEDS: hydrALAZINE HCL 10 MG TABLET PO SCH ×3 (06:01→22:32)
[2020-06-08 08:54] LABS: BASO % 0.6 % (0-2.0); HEMATOCRIT 27.8 % (35.4-49); HEMOGLOBIN 9.6 GM/dL (11.7-16.9); LYMPH % 20.7 % (8-40); MCH 29.6 pg (25.7-33.7); MCHC 34.7 g/dl (32.0-35.9); MEAN CELL VOLUME 85.3 fl (80-96); MEAN PLT VOLUME 7.8 fl (7.5-11.1); MONO % 17.3 % (3.8-10.2); NEUT % 56.4 % (42.8-82.8); PLATELET COUNT 143 K/MM3 (134-434); RBC 3.26 M/mm3 (4.00-5.60); RDW 27.4 % (11.9-15.9); WHITE BLOOD COUNT 3.6 K/mm3 (4.0-10.0)
[2020-06-08] MEDS: CALCIUM ACETATE 667 MG CAPSULE (FP) PO SCH ×3 (09:00→17:35)
[2020-06-08] MEDS: PANTOPRAZOLE 40 MG TABLET PO SCH (09:21)
[2020-06-08] MEDS: VITAMIN B COMP W-C 1 EA TABLET (NEPHRO-VITE) PO SCH (09:21)
[2020-06-08] MEDS: HEPARIN NA (PORCINE) 5,000 UNITS/ML 1ML VIAL SQ SCH ×2 (09:21→22:32)
[2020-06-08] MEDS: CARVEDILOL 25 MG TABLET (FP) PO SCH ×2 (09:21→22:32)
[2020-06-08] MEDS: amLODIPine BESYLATE 10 MG TABLET (FP) PO SCH (09:21)
[2020-06-08] MEDS: FOLIC ACID 1 MG TABLET (FP) PO SCH (09:21)
[2020-06-08] MEDS: LACTOBACILLUS ACIDOPHILUS 1 TABLET PO SCH (09:22)
[2020-06-08 10:33] LABS: ANISOCYTOSIS 1+; MACROCYTOSIS 0; PLATELET ESTIMATE DECREASED
--- NOTE | 2020-06-08 11:45 | PN ---
Progress Note (short form) - Note Progress Note: events noted\ afebrile Vital Signs - 24 hr 06/07/20 06/07/20 06/07/20 14:00 17:55 18:00 Temperature 98.5 F 98.1 F 99.0 F Pulse Rate 65 61 62 Respiratory 20 18 20 Rate Blood Pressure 126/55 L 128/54 L 125/49 L O2 Sat by Pulse 93 L 96 Oximetry (%) 06/07/20 06/07/20 06/07/20 18:30 19:00 19:30 Temperature Pulse Rate 65 68 71 Respiratory 18 18 18 Rate Blood Pressure 129/55 L 137/55 L 149/61 O2 Sat by Pulse Oximetry (%) 06/07/20 06/07/20 06/07/20 20:00 20:30 21:00 Temperature Pulse Rate 71 71 70 Respiratory 18 18 18 Rate Blood Pressure 153/61 155/64 154/61 O2 Sat by Pulse 96 Oximetry (%) 06/07/20 06/07/20 06/08/20 21:15 21:20 00:00 Temperature 98.2 F Pulse Rate 71 71 71 Respiratory 18 18 18 Rate Blood Pressure 131/67 154/60 144/52 L O2 Sat by Pulse 98 Oximetry (%) 06/08/20 06/08/20 06:00 09:00 Temperature 97.3 F L 98 F Pulse Rate 67 62 Respiratory 18 18 Rate Blood Pressure 156/61 146/99 O2 Sat by Pulse 99 Oximetry (%) Current Medications Generic Name Dose Route Start Last Admin Trade Name Freq PRN Reason Stop Dose Admin Amlodipine Besylate 10 mg 06/07/20 10:00 06/08/20 09:21 Norvasc - PO 10 mg DAILY BRAD Administration Atorvastatin Calcium 10 mg 06/06/20 22:00 06/07/20 22:26 Lipitor - PO 10 mg HS BRAD Administration Calcium Acetate 667 mg 06/07/20 08:00 06/08/20 09:00 Phoslo - PO 667 mg TIDCM BRAD Administration Carvedilol 25 mg 06/06/20 22:00 06/08/20 09:21 Coreg - PO 25 mg BID BRAD Administration Clonidine HCl 0.2 mg 06/09/20 10:00 Catapres Tts Patch - TD Olivier@1000 [facility] Ergocalciferol 50,000 unit 06/09/20 10:00 Drisdol - PO Olivier@1000 BRAD Folic Acid 1 mg 06/07/20 10:00 06/08/20 09:21 Folic Acid - PO 1 mg DAILY BRAD Administration Heparin Sodium (Porcine) 5,000 unit 06/06/20 22:00 06/08/20 09:21 Heparin - SQ 5,000 unit BID BRAD Administration Hydralazine HCl 10 mg 06/06/20 22:00 06/08/20 06:01 Apresoline - PO 10 mg TID BRAD Administration Sodium Chloride 250 mls @ 3,000 mls/hr 06/07/20 12:44 Normal Saline - IV 06/08/20 12:44 PRN PRN Hypotension during Dialysis Lactobacillus Acidophilus 1 tab 06/07/20 10:00 06/08/20 09:22 Bacid - PO 1 tab DAILY BRAD Administration Mirtazapine 30 mg 06/06/20 22:00 06/07/20 22:26 Remeron - PO 30 mg HS BRAD Administration Multivit/Ca Carb/B Cmplx/FA/Prenat 1 tablet 06/07/20 10:00 06/08/20 09:21 Nephro-Alejandro - PO 1 tablet DAILY BRAD Administration Pantoprazole Sodium 40 mg 06/07/20 10:00 06/08/20 09:21 Protonix - PO 40 mg DAILY BRAD Administration Laboratory Results - last 24 hr 06/05/20 06/05/20 06/07/20 17:30 18:55 10:03 WBC RBC Hgb Hct MCV MCH MCHC RDW Plt Count MPV Absolute Neuts (auto) Neutrophils % Lymphocytes % Monocytes % Eosinophils % Basophils % Nucleated RBC % Hypochromia Platelet Estimate Polychromasia Poikilocytosis Anisocytosis Microcytosis Macrocytosis Ferritin Ammonia 17.40 COVID-19 (ANGELA) Not detected Blood Type A POSITIVE Antibody Screen Negative Crossmatch See Detail 06/07/20 06/08/20 06/08/20 18:00 06:00 08:07 WBC 3.6 L RBC 3.26 L Hgb 9.6 L Hct 27.8 L D MCV 85.3 D MCH 29.6 MCHC 34.7 RDW 27.4 H Plt Count 143 MPV 7.8 D Absolute Neuts (auto) 2.0 Neutrophils % 56.4 Lymphocytes % 20.7 D Monocytes % 17.3 H Eosinophils % 5.0 H Basophils % 0.6 Nucleated RBC % 0 Hypochromia 0 Platelet Estimate Decreased Polychromasia 1+ Poikilocytosis 0 Anisocytosis 1+ Microcytosis 1+ Macrocytosis 0 Ferritin 302.2 Ammonia 25.60 COVID-19 (ANGELA) Blood Type Antibody Screen Crossmatch S1 S RRR lungs decreased Abd-soft, NT No edema no thrill or bruit on avf PLAN s/p declotting avf s/p PRBC continue with meds iv antibiotics dc Hematology eval noted GI eval appreciated dc planning to [place] Problem List - Problems (1) AV graft thrombosis Code(s): T82.868A - THROMBOSIS DUE TO VASCULAR PROSTH DEV/GRFT, INIT (2) Bleeding from dialysis shunt Code(s): T82.838A - HEMORRHAGE DUE TO VASCULAR PROSTH DEV/GRFT, INIT (3) Neutropenia Code(s): D70.9 - NEUTROPENIA, UNSPECIFIED (4) Pneumonia Code(s): J18.9 - PNEUMONIA, UNSPECIFIED ORGANISM (5) Acute on chronic diastolic heart failure Code(s): I50.33 - ACUTE ON CHRONIC DIASTOLIC (CONGESTIVE) HEART FAILURE (6) Altered mental status Code(s): R41.82 - ALTERED MENTAL STATUS, UNSPECIFIED (7) CAD (coronary artery disease) Code(s): I25.10 - ATHSCL HEART DISEASE OF [place] CORONARY ARTERY W/O ANG PCTRS Qualifiers: Coronary Disease-Associated Artery/Lesion type: [place] artery [place] vs. transplanted heart: [place] heart Associated angina: without angina Qualified Code(s): I25.10 - Atherosclerotic heart disease of [place] [facility]
--- NOTE | 2020-06-08 15:23 | PN ---
Progress Note, Physician Chief Complaint: Pt denies any complaints and feels comfortable S/P PRBCs nd HD yesterday - Current Medication List Current Medications: Active Medications Amlodipine Besylate (Norvasc -) 10 mg PO DAILY [facility] Last Admin: 06/08/20 09:21 Dose: 10 mg Documented by: Atorvastatin Calcium (Lipitor -) 10 mg PO HS [facility] Last Admin: 06/07/20 22:26 Dose: 10 mg Documented by: Calcium Acetate (Phoslo -) 667 mg PO TIDCM [facility] Last Admin: 06/08/20 13:04 Dose: 667 mg Documented by: Carvedilol (Coreg -) 25 mg PO BID [facility] Last Admin: 06/08/20 09:21 Dose: 25 mg Documented by: Clonidine HCl (Catapres Tts Patch -) 0.2 mg TD Olivier@1000 [facility] Ergocalciferol (Drisdol -) 50,000 unit PO Olivier@1000 [facility] Folic Acid (Folic Acid -) 1 mg PO DAILY [facility] Last Admin: 06/08/20 09:21 Dose: 1 mg Documented by: Heparin Sodium (Porcine) (Heparin -) 5,000 unit SQ BID [facility] Last Admin: 06/08/20 09:21 Dose: 5,000 unit Documented by: Hydralazine HCl (Apresoline -) 10 mg PO TID [facility] Last Admin: 06/08/20 06:01 Dose: 10 mg Documented by: Sodium Chloride (Normal Saline -) 250 mls @ 3,000 mls/hr IV PRN PRN PRN Reason: Hypotension during Dialysis Stop: 06/08/20 12:44 Lactobacillus Acidophilus (Bacid -) 1 tab PO DAILY [facility] Last Admin: 06/08/20 09:22 Dose: 1 tab Documented by: Mirtazapine (Remeron -) 30 mg PO HS [facility] Last Admin: 06/07/20 22:26 Dose: 30 mg Documented by: Multivit/Ca Carb/B Cmplx/FA/Prenat (Nephro-Alejandro -) 1 tablet PO DAILY [facility] Last Admin: 06/08/20 09:21 Dose: 1 tablet Documented by: Pantoprazole Sodium (Protonix -) 40 mg PO DAILY [facility] Last Admin: 06/08/20 09:21 Dose: 40 mg Documented by: - Objective Vital Signs: Vital Signs Temperature 98 F 06/08/20 09:00 Pulse Rate 62 06/08/20 09:00 Respiratory Rate 18 06/08/20 09:00 Blood Pressure 146/99 06/08/20 09:00 O2 Sat by Pulse Oximetry (%) 99 06/08/20 09:00 BP now 131/67 Constitutional: Yes: No Distress Cardiovascular: Yes: S1, S2 Respiratory: Yes: CTA Bilaterally Gastrointestinal: Yes: Soft. No: Tenderness Extremities: Yes: Other (AVG in the LUE with thrill) Edema: No Neurological: Yes: Other (Easily arousable and cooperative) Labs: CBC, BMP 06/08/20 08:07 06/06/20 06:00 INR, PTT INR 1.06 (0.83-1.09) 06/05/20 16:55 Assessment/Plan Impression ESRD HTN Blood loss anemia from a bleeding AVG S/P Thrombectomy of the AVG Dementia H/O cad s/p cabg PLAN Monitor Hgb Nephrovite and Folate as ordered Next HD 06/10 either as a inpatient or outpatient To add Venofer and Epogen with next HD Dr Martinez
--- NOTE | 2020-06-08 19:15 | PN ---
Progress Note, Physician Chief Complaint: AWAKE IN BED NO ACUTE DISTRESS - Current Medication List Current Medications: Active Medications Amlodipine Besylate (Norvasc -) 10 mg PO DAILY [facility] Last Admin: 06/08/20 09:21 Dose: 10 mg Documented by: Atorvastatin Calcium (Lipitor -) 10 mg PO HS [facility] Last Admin: 06/07/20 22:26 Dose: 10 mg Documented by: Calcium Acetate (Phoslo -) 667 mg PO TIDCM [facility] Last Admin: 06/08/20 17:35 Dose: 667 mg Documented by: Carvedilol (Coreg -) 25 mg PO BID [facility] Last Admin: 06/08/20 09:21 Dose: 25 mg Documented by: Clonidine HCl (Catapres Tts Patch -) 0.2 mg TD Olivier@1000 [facility] Ergocalciferol (Drisdol -) 50,000 unit PO Olivier@1000 [facility] Folic Acid (Folic Acid -) 1 mg PO DAILY [facility] Last Admin: 06/08/20 09:21 Dose: 1 mg Documented by: Heparin Sodium (Porcine) (Heparin -) 5,000 unit SQ BID [facility] Last Admin: 06/08/20 09:21 Dose: 5,000 unit Documented by: Hydralazine HCl (Apresoline -) 10 mg PO TID [facility] Last Admin: 06/08/20 14:45 Dose: 10 mg Documented by: Sodium Chloride (Normal Saline -) 250 mls @ 3,000 mls/hr IV PRN PRN PRN Reason: Hypotension during Dialysis Stop: 06/08/20 12:44 Lactobacillus Acidophilus (Bacid -) 1 tab PO DAILY [facility] Last Admin: 06/08/20 09:22 Dose: 1 tab Documented by: Mirtazapine (Remeron -) [address] [facility] Last Admin: 06/07/20 22:26 Dose: 30 mg Documented by: Multivit/Ca Carb/B Cmplx/FA/Prenat (Nephro-Alejandro -) 1 tablet PO DAILY [facility] Last Admin: 06/08/20 09:21 Dose: 1 tablet Documented by: Pantoprazole Sodium (Protonix -) 40 mg PO DAILY [facility] Last Admin: 06/08/20 09:21 Dose: 40 mg Documented by: - Objective Vital Signs: Vital Signs Temperature 98.5 F 06/08/20 18:00 Pulse Rate 73 06/08/20 18:00 Respiratory Rate 18 06/08/20 18:00 Blood Pressure 143/62 06/08/20 18:00 O2 Sat by Pulse Oximetry (%) 99 06/08/20 15:00 Constitutional: Yes: No Distress Cardiovascular: Yes: Regular Rate and Rhythm, S1, S2 Respiratory: Yes: CTA Bilaterally Gastrointestinal: Yes: Normal Bowel Sounds, Soft Labs: CBC, BMP 06/08/20 08:07 06/06/20 06:00 INR, PTT INR 1.06 (0.83-1.09) 06/05/20 16:55 Assessment/Plan S/P THROMBECTOMY FEVER- RESOLVED OFF ANTIBIOTICS OBSERVE
[2020-06-08] MEDS: ATORVASTATIN CA 10 MG TABLET (FP) PO SCH (22:32)
[2020-06-08] MEDS: MIRTAZAPINE 30 MG TABLET PO SCH (22:33)
[2020-06-09] MEDS: hydrALAZINE HCL 10 MG TABLET PO SCH ×2 (05:50→13:54)
[2020-06-09] MEDS: CALCIUM ACETATE 667 MG CAPSULE (FP) PO SCH ×2 (08:25→12:16)
[2020-06-09] MEDS ORDERED: ERGOCALCIFEROL (VIT D2) 50,000 UNIT (1.25 MG) CAPSULE PO SCH ×2 (10:00)
[2020-06-09] MEDS ORDERED: cloNIDine-TTS 0.2 MG/24 HOURS PATCH.TDWK TD SCH ×2 (10:00)
[2020-06-09 10:03] LABS: HEMATOCRIT 29.2 % (35.4-49); HEMOGLOBIN 9.6 GM/dL (11.7-16.9); MCH 28.6 pg (25.7-33.7); MEAN CELL VOLUME 86.8 fl (80-96); MEAN PLT VOLUME 7.8 fl (7.5-11.1); PLATELET COUNT 164 K/MM3 (134-434); RBC 3.36 M/mm3 (4.00-5.60); RDW 26.3 % (11.9-15.9); WHITE BLOOD COUNT 3.6 K/mm3 (4.0-10.0)
[2020-06-09] MEDS ORDERED: SODIUM CHLORIDE 250 ML IV PRN ×2 (10:15→10:17)
--- NOTE | 2020-06-09 10:15 | PN ---
Progress Note, Physician Chief Complaint: Pt denies any complaints and is in no distress Todays Hgb level pending - Current Medication List Current Medications: Active Medications Amlodipine Besylate (Norvasc -) 10 mg PO DAILY [facility] Last Admin: 06/08/20 09:21 Dose: 10 mg Documented by: Atorvastatin Calcium (Lipitor -) 10 mg PO HS [facility] Last Admin: 06/08/20 22:32 Dose: 10 mg Documented by: Calcium Acetate (Phoslo -) 667 mg PO TIDCM [facility] Last Admin: 06/09/20 08:25 Dose: 667 mg Documented by: Carvedilol (Coreg -) 25 mg PO BID [facility] Last Admin: 06/08/20 22:32 Dose: 25 mg Documented by: Clonidine HCl (Catapres Tts Patch -) 0.2 mg TD Olivier@1000 [facility] Ergocalciferol (Drisdol -) 50,000 unit PO Olivier@1000 [facility] Folic Acid (Folic Acid -) 1 mg PO DAILY [facility] Last Admin: 06/08/20 09:21 Dose: 1 mg Documented by: Heparin Sodium (Porcine) (Heparin -) 5,000 unit SQ BID [facility] Last Admin: 06/08/20 22:32 Dose: 5,000 unit Documented by: Hydralazine HCl (Apresoline -) 10 mg PO TID [facility] Last Admin: 06/09/20 05:50 Dose: 10 mg Documented by: Sodium Chloride (Normal Saline -) 250 mls @ 3,000 mls/hr IV PRN PRN PRN Reason: Hypotension during Dialysis Stop: 06/08/20 12:44 Lactobacillus Acidophilus (Bacid -) 1 tab PO DAILY [facility] Last Admin: 06/08/20 09:22 Dose: 1 tab Documented by: Mirtazapine (Remeron -) 30 mg PO [facility] Last Admin: 06/08/20 22:33 Dose: 30 mg Documented by: Multivit/Ca Carb/B Cmplx/FA/Prenat (Nephro-Alejandro -) 1 tablet PO DAILY [facility] Last Admin: 06/08/20 09:21 Dose: 1 tablet Documented by: Pantoprazole Sodium (Protonix -) 40 mg PO DAILY [facility] Last Admin: 06/08/20 09:21 Dose: 40 mg Documented by: - Objective Vital Signs: Vital Signs Temperature 97.6 F 07/19/20 08:54 Pulse Rate 72 06/09/20 08:54 Respiratory Rate 18 06/09/20 08:54 Blood Pressure 146/59 L 06/09/20 08:54 O2 Sat by Pulse Oximetry (%) 94 L 06/09/20 08:54 Cardiovascular: Yes: S1, S2 Respiratory: Yes: CTA Bilaterally Gastrointestinal: Yes: Soft. No: Tenderness Extremities: Yes: Other (AVG in the LUE with bruit) Edema: No Labs: CBC, BMP 06/06/20 06:00 INR, PTT INR 1.06 (0.83-1.09) 06/05/20 16:55 Assessment/Plan Impression ESRD HTN Blood loss anemia from a bleeding AVG S/P Thrombectomy of the AVG Dementia H/O cad s/p cabg PLAN Monitor Hgb Nephrovite and Folate as ordered Next HD with Venofer ordered for tomorrow Pre HD CBC and BMP ordered Dr Martinez
[2020-06-09] MEDS: PANTOPRAZOLE 40 MG TABLET PO SCH (11:12)
[2020-06-09] MEDS: FOLIC ACID 1 MG TABLET (FP) PO SCH (11:12)
[2020-06-09] MEDS: LACTOBACILLUS ACIDOPHILUS 1 TABLET PO SCH (11:12)
[2020-06-09] MEDS: VITAMIN B COMP W-C 1 EA TABLET (NEPHRO-VITE) PO SCH (11:12)
[2020-06-09] MEDS: HEPARIN NA (PORCINE) 5,000 UNITS/ML 1ML VIAL SQ SCH (11:12)
[2020-06-09] MEDS: amLODIPine BESYLATE 10 MG TABLET (FP) PO SCH (11:13)
[2020-06-09] MEDS: CARVEDILOL 25 MG TABLET (FP) PO SCH (11:13)
[2020-06-09] MEDS ORDERED: PT OWN MED DRAWER 7, Y5N ONE (11:21)
--- NOTE | 2020-06-09 12:17 | DS ---
Physical Examination Vital Signs: Vital Signs Temperature 97.6 F 06/09/20 08:54 Pulse Rate 68 06/09/20 11:00 Respiratory Rate 18 06/09/20 11:00 Blood Pressure 146/82 06/09/20 11:00 O2 Sat by Pulse Oximetry (%) 94 L 06/09/20 08:54 Constitutional: Yes: No Distress, Calm Cardiovascular: Yes: Regular Rate and Rhythm Respiratory: Yes: CTA Bilaterally Gastrointestinal: Yes: Normal Bowel Sounds, Soft. No: Tenderness Edema: No Labs: CBC, BMP 06/09/20 09:20 06/06/20 06:00 Discharge Summary Problems reviewed: Yes Reason For Visit: ESRD,NEUTROPNENIA,PNA,BLEEDING FROM DIALYSIS SHUNT Current Active Problems AV graft thrombosis (Acute) Anemia (Acute) Atelectasis (Acute) Bleeding from dialysis shunt (Acute) Colon adenomas (Acute) Diverticulosis (Acute) Leukopenia (Acute) Neutropenia (Acute) Pneumonia (Acute) Postoperative fever (Acute) Thrombocytopenia (Acute) Hospital Course: Pt admitted fro bleeding AVF found to have thrombus Declotted by vascular Now working well Undergoing dialysis without any problems No pneumonia discontinued antibiotics seen by ID as well stable for dc to NH seen by GI -- labs ordered-- consult was done for elevated ammonia in the NH Condition: Guarded - Instructions Referrals: Maddie Davenport MD [Primary Care Provider] - - Home Medications Comprehensive Discharge Medication List: Ambulatory Orders Acetaminophen [Tylenol] 650 mg PO Q6H PRN 07/19/18 Amlodipine Besylate [Norvasc -] 10 mg PO DAILY 07/19/18 Atorvastatin Ca [Lipitor] 10 mg PO HS 07/19/18 Calcium Acetate [Phoslo -] 667 mg PO TIDCM 07/19/18 Clonidine Patch [Catapres Tts Patch -] 0.2 mg TD MCMULLEN 07/19/18 Ergocalciferol [Vitamin D2] 50,000 unit PO MCMULLEN 07/19/18 Carvedilol [Coreg -] 25 mg PO BID 07/17/19 Folic Acid 1 mg PO DAILY 07/17/19 Lactobacillus Acidophilus [Bacid -] 1 cap PO DAILY 07/17/19 Mirtazapine 30 mg PO HS 07/17/19 Vitamin B Comp W-C [Nephro-Alejandro -] 0.8 mg PO DAILY 07/17/19 Pantoprazole Sodium [Protonix] 40 mg PO DAILY #60 tablet. 07/26/19 hydrALAZINE HCL [Apresoline -] 10 mg PO TID tablet 08/04/19
[2020-06-09 15:47] VITALS: BP 148/56; PULSE 65; TEMP 98
--- NOTE | 2020-06-10 17:06 | PATH ---
Surgical Pathology Report Patient Name: GRAHAM LINDER Med. Rec. #: [id number] /Age/Gender: 1955 (Age: 65) / M Account: [id number] Location: [address] [place] [address]/[facility] Taken: 06/06/2020 Received: 06/07/2020 Reported: 06/10/2020 Physicians: Cayla Ball M.D. Specimen(s) Received CLOTS AVF Clinical History Clotted AVF Final Diagnosis CLOT, AVF, OPEN THROMBECTOMY: BLOOD/FIBRIN CLOT. Electronically Signed Rosana Alejandro M.D. Gross Description Received in formalin labeled "clot AVF," is a 2.7 x 2.0 x 0.3 cm aggregate of red-brown blood clot. The specimen is entirely submitted in one cassette. DL/06/07/2020 saudi/06/07/2020
[2020-06-10 17:07] LABS: TRANSGLUTAMINASE IGA < 2 U/mL (0-3); TRANSGLUTAMINASE IGG < 2 U/mL (0-5)
[2020-06-12 05:09] LABS: ALPHA 2 MACROGLOBULINS,QN 143 mg/dL (110-276); ALT(SGPT)P5P 15 IU/L (0-55); CHOLESTEROL TOTAL 136 mg/dL (100-199); FIBROSIS SCORE 0.43 (0.00-0.21); GLUCOSE SERUM 73 mg/dL (65-99); HEIGHT 60 in (.); WEIGHT- 170 LBS (.)
--- NOTE | 2020-06-13 18:14 | OP ---
DATE OF OPERATION: 06/06/2020 SURGEON: Aman Machado MD. PROCEDURE: Open thrombectomy and venogram of left arm arteriovenous graft. PREOPERATIVE DIAGNOSIS: Thrombosed arteriovenous graft. POSTOPERATIVE DIAGNOSIS: Thrombosed arteriovenous graft. ANESTHESIA: Fractional. SPOOL WINDER: , JOSEPH. OPERATIVE FINDINGS: The left arm AV graft was thrombosed. Following thrombectomy, there was no evidence of anastomotic or graft stenosis. OPERATIVE PROCEDURE: Following routine patient identification with side and site verification, intravenous sedation was established. The left arm was prepped with ChloraPrep. Timeout was performed. 1% lidocaine was infiltrated over the graft on the left upper arm. Incision was made, carried to subcutaneous tissue using cautery for hemostasis. The graft was mobilized from the surrounding tissues and secured with vessel loops. Patient was heparinized. A transverse incision was made in the graft. A number 4 Suki catheter was passed proximally through the venous anastomosis and withdrawn to remove thrombus and restore venous backbleeding. Several passes were required to remove all thrombus. Venogram was then performed through the graft which showed free flow into the axillary and central veins with no evidence of stenosis. The graft was filled with heparin solution and was occluded with a basket clamp. Thrombectomy of the arterial inflow was then performed with gnosticism of pulsatile flow. Retrograde arteriogram was performed showing a patent arterial anastomosis without evidence of narrowing. The graft was filled with heparin, was occluded with a vascular clamp. The graft incision was closed with a running suture of 6-0 Prolene. Clamps were removed, and there was good pulse and flow in the graft. The wound was then closed with subcuticular suture of 3-0 Vicryl, and skin deonte. Sterile dressing was applied, and the patient taken to the recovery room in stable condition. AMAN MACHADO M.D. [id number]
--- NOTE | 2020-07-21 10:19 | DS ---
Physical Examination Vital Signs: Vital Signs Temperature 98.0 F 06/09/20 15:00 Pulse Rate 65 06/09/20 15:00 Respiratory Rate 18 06/09/20 15:00 Blood Pressure 148/56 L 06/09/20 15:00 O2 Sat by Pulse Oximetry (%) 97 06/09/20 15:00 Labs: CBC, BMP 06/09/20 09:20 06/06/20 06:00 Discharge Summary Problems reviewed: Yes Reason For Visit: ESRD,NEUTROPNENIA,PNA,BLEEDING FROM DIALYSIS SHUNT Current Active Problems Encounter for screening laboratory testing for COVID-19 virus (Acute) Hemorrhage of arteriovenous fistula (Acute) Surgical arteriovenous fistula hemorrhage (Acute) Hospital Course: Pt admitted fro bleeding AVF found to have thrombus Declotted by vascular Now working well Undergoing dialysis without any problems No pneumonia discontinued antibiotics seen by ID as well stable for dc to NH seen by GI -- labs ordered-- consult was done for elevated ammonia in the NH Condition: Guarded - Instructions Referrals: Maddie Davenport MD [Primary Care Provider] - Disposition: [facility]ACILITY - Home Medications Comprehensive Discharge Medication List: Ambulatory Orders Acetaminophen [Tylenol] 650 mg PO Q6H PRN 07/19/18 Amlodipine Besylate [Norvasc -] 10 mg PO DAILY 07/19/18 Atorvastatin Ca [Lipitor] 10 mg PO HS 07/19/18 Clonidine Patch [Catapres Tts Patch -] 0.2 mg TD MCMULLEN 07/19/18 Carvedilol [Coreg -] 25 mg PO BID 07/17/19 Folic Acid 1 mg PO DAILY 07/17/19 Lactobacillus Acidophilus [Bacid -] 1 cap PO DAILY 07/17/19 Vitamin B Comp W-C [Nephro-Alejandro -] 0.8 mg PO DAILY 07/17/19 hydrALAZINE HCL [Apresoline -] 50 mg PO TID 07/21/20
== END 2020-06-09 17:26 | DRG 252 ==
LOC: JER 16:15 → JERBED 19:25 → J5S 20:32
PROVIDERS: ADMIT Internal Medicine; ATTEND Internal Medicine
PROC: B50NYZZ Plain Radiography of Left Upper Extremity Veins using Other Contrast (ICD-10-PCS; 2020-06-06)
PROC: 05C80ZZ Extirpation of Matter from Left Axillary Vein, Open Approach (ICD-10-PCS; principal; 2020-06-06 16:00)
PROC: 5A1D70Z Performance of Urinary Filtration, Intermittent, Less than 6 Hours Per Day (ICD-10-PCS; 2020-06-07)
DX: T82.868A Thrombosis due to vascular prosthetic devices, implants and grafts, initial encounter (principal); N18.6 End stage renal disease; J18.9 Pneumonia, unspecified organism; I12.0 Hypertensive chronic kidney disease with stage 5 chronic kidney disease or end stage renal disease; Y83.8 Other surgical procedures as the cause of abnormal reaction of the patient, or of later complication, without mention of misadventure at the time of the procedure; E78.5 Hyperlipidemia, unspecified; K21.9 Gastro-esophageal reflux disease without esophagitis; D64.9 Anemia, unspecified; E11.22 Type 2 diabetes mellitus with diabetic chronic kidney disease; I25.10 Atherosclerotic heart disease of native coronary artery without angina pectoris; D63.8 Anemia in other chronic diseases classified elsewhere; R13.10 Dysphagia, unspecified; R53.1 Weakness; D70.9 Neutropenia, unspecified; R50.82 Postprocedural fever; D69.6 Thrombocytopenia, unspecified; K57.90 Diverticulosis of intestine, part unspecified, without perforation or abscess without bleeding; F03.90 Unspecified dementia, unspecified severity, without behavioral disturbance, psychotic disturbance, mood disturbance, and anxiety; D12.6 Benign neoplasm of colon, unspecified; Z99.2 Dependence on renal dialysis; Z95.1 Presence of aortocoronary bypass graft; Z86.718 Personal history of other venous thrombosis and embolism
CPT/HCPCS: 36415; 36430; 71045-TC-FY; 76705-TC; 80048; 80053; 82140; 82172; 82247; 82465; 82550; 82607; 82728; 82747; 82947; 82962; 82977; 83010; 83516; 83540; 83550; 83615; 83883; 84439; 84443; 84450; 84460; 84478; 84484; 85014; 85025; 85027; 85044; 85610; 85730; 86803; 86850; 86900; 86901; 86922; 87040; 87340; 88300-TC; 88304-TC; 93005; 93010; 93971; 94010; 94760; 99285-25; J1644; P9058; U0003

== ENCOUNTER 2020-07-20 16:09 | Inpatient (IN) | payer OTHER ==
--- NOTE | 2020-07-20 16:34 | PDOC ---
History of Present Illness - General Stated Complaint: BLEED FROM PORT - History of Present Illness Initial Comments: 65 yo male with PMH of HTN, HLD, Anemia, Thrombocytopenia, CKD (sat, tues, thurs) BIBEMS after receiving dialysis for bleeding from AV fistula bleed in the left arm. Pt is a poor historian. He says he had not had dialysis in "a while" and went in today where there were unable to stop the bleeding after removing access. Pt presented without active bleeding due to tamponade. He had a thrombectomy of the fistula by Dr. Garland in May. 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 Pt denies light headedness, shortness of breath, chest pain, numbness/tingling in left hand. Pt is not oriented. 07/20/20 17:33 07/20/20 17:34 07/20/20 17:37 Past History - Medical History Allergies/Adverse Reactions: Allergies Allergy/AdvReac Type Severity Reaction Status Date / Time No Known Allergies Allergy Verified 06/05/20 16:58 Home Medications: Ambulatory Orders Acetaminophen [Tylenol] 650 mg PO Q6H PRN 07/19/18 Amlodipine Besylate [Norvasc -] 10 mg PO DAILY 07/19/18 Atorvastatin Ca [Lipitor] 10 mg PO HS 07/19/18 Calcium Acetate [Phoslo -] 667 mg PO TIDCM 07/19/18 Clonidine Patch [Catapres Tts Patch -] 0.2 mg TD MCMULLEN 07/19/18 Ergocalciferol [Vitamin D2] 50,000 unit PO MCMULLEN 07/19/18 Carvedilol [Coreg -] 25 mg PO BID 07/17/19 Folic Acid 1 mg PO DAILY 07/17/19 Lactobacillus Acidophilus [Bacid -] 1 cap PO DAILY 07/17/19 Mirtazapine 30 mg PO HS 07/17/19 Vitamin B Comp W-C [Nephro-Alejandro -] 0.8 mg PO DAILY 07/17/19 Pantoprazole Sodium [Protonix] 40 mg PO DAILY #60 tablet. 07/26/19 hydrALAZINE HCL [Apresoline -] 10 mg PO TID tablet 08/04/19 Anemia: Yes Cardiac Disorders: Yes (CAD, DVT right leg, Angina) COPD: No CHF: No DVT: Yes Dementia: Yes Diabetes: Yes Dialysis: Yes (wed- - wed right chest dialysis catheter) GI Disorders: Yes (GERD, Dysphagia) HTN: Yes Hypercholesterolemia: Yes - Surgical History Cardiac Surgery: Yes (CABG) Cholecystectomy: No GI Surgery: No - Immunization History Td Vaccination: No TDAP Vaccination: No Immunization Up to Date: Yes - Psycho-Social/Smoking History Smoking History: Unknown if ever smoked Have you smoked in the past 12 months: No Number of Cigarettes Smoked Daily: 0 Cigars Per Day: 0 Review of Systems - Review of Systems Constitutional: No: Chills, Fever HEENTM: No: Recent change in vision, Double Vision Respiratory: No: Cough, Shortness of Breath Cardiac (ROS): No: Chest Pain, Palpitations ABD/GI: No: Diarrhea, Nausea, Vomiting : No: Burning, Flank Pain Musculoskeletal: No: Joint Pain, Muscle Pain Integumentary: No: Change in Color, Dryness, Erythema Neurological: No: Headache, Seizure Endocrine: No: Intolerance to Cold, Intolerance to Heat *Physical Exam - Physical Exam General Appearance: Yes: Appropriately Dressed. No: Apparent Distress HEENT: positive: EOMI, EARL Neck: negative: Tender, Rigid Respiratory/Chest: positive: Lungs Clear, Normal Breath Sounds. negative: Respiratory Distress Cardiovascular: positive: Regular Rhythm, Regular Rate, S1, S2. negative: Edema, JVD Gastrointestinal/Abdominal: positive: Flat, Soft. negative: Tender Musculoskeletal: positive: Normal Inspection. negative: CVA Tenderness Extremity: positive: Normal Capillary Refill, Normal Inspection, Normal Range of Motion, Other (pulsatile fistula without signs of active bleeding with the tamponade on. ). negative: Coldness, Cyanosis, Delayed Capillary Refill, Erythema Integumentary: positive: Normal Color, Dry, Warm Neurologic: positive: Normal Mood/Affect. negative: Fully Oriented (oriented to self only) ED Treatment Course - LABORATORY CBC & Chemistry Diagram: 07/20/20 16:45 07/20/20 16:45 Medical Decision Making - Medical Decision Making 65 yo male with PMH of HTN, HLD, Anemia, Thrombocytopenia, CKD (wed, , ) BIBEMS after receiving dialysis for bleeding from AV fistula bleed in th e left arm. CBC, CMP, Coags Normal Bleeding is controlled with tamponade. Too large to place suture or place surgigel. Dr. Garland was consulted and said he will see the patient in the morning. Hand is check periodically to ensure pulses and neuromuscular function in tact. Pt admitted. 07/21/20 00:22 Discharge - Discharge Information Problems reviewed: Yes Clinical Impression/Diagnosis: Hemorrhage of arteriovenous fistula, Surgical arteriovenous fistula hemorrhage - Admission Yes - Follow up/Referral - Patient Discharge Instructions - Post Discharge Activity
[2020-07-20 16:54] VITALS: BMI 24.5
[2020-07-20 17:33] LABS: INR 0.96 (0.83-1.09); PROTHROMBIN TIME (PATIENT) 11.3 SEC (9.7-13.0)
[2020-07-20 17:35] LABS: ACTIVATED PTT 35.4 SECONDS (25.2-36.5); HEMATOCRIT 34.5 % (35.4-49); HEMOGLOBIN 11.5 GM/dL (11.7-16.9); MCH 30.1 pg (25.7-33.7); MCHC 33.3 g/dl (32.0-35.9); MEAN CELL VOLUME 90.5 fl (80-96); MEAN PLT VOLUME 8.8 fl (7.5-11.1); PLATELET COUNT 128 K/MM3 (134-434); RBC 3.82 M/mm3 (4.00-5.60); RDW 20.1 % (11.9-15.9); WHITE BLOOD COUNT 3.9 K/mm3 (4.0-10.0)
[2020-07-20 18:09] LABS: ALBUMIN 3.7 g/dl (3.4-5.0); BILIRUBIN,TOTAL 0.8 mg/dL (0.2-1); BLOOD UREA NITROGEN 16.8 mg/dL (7-18); CALCIUM 8.8 mg/dL (8.5-10.1); CREATININE 2.4 mg/dL (0.55-1.3); POTASSIUM 3.4 mmol/L (3.5-5.1); TOT PROT 7.2 g/dl (6.4-8.2)
--- NOTE | 2020-07-20 19:12 | PDOC ---
Documentation entered by Alexandria Vázquez SCRIBE, acting as scribe for Aj Iyer MD. Aj Iyer MD: This documentation has been prepared by the Gurpreet cortes Sydney, SCRIBE, under my direction and personally reviewed by me in its entirety. I confirm that the documentation accurately reflects all work, treatment, procedures, and medical decision making performed by me. Attending Attestation - Resident Resident Name: Chris Smith - ED Attending Attestation I have performed the following: I have examined & evaluated the patient, The case was reviewed & discussed with the resident, I agree w/resident's findings & plan, Exceptions are as noted - HPI HPI: 07/20/20 17:35 Patient is a 65 year old male with a significant past medical history of ESRD (on HD , , Sat), DM, DVT (RLE), HTN, HLD, anemia, generalized weakness, dysphagia who presents to the ED via EMS with a bleeding left arm AV fistula. HPI is limited secondary to the patient's present mental status. He presents to the ED without active bleeding. Denies headache, fever, chills, shortness of breath, chest pain, numbness or tingling in his left arm. Allergies: NKDA PCP: Dr. Niecy Davenport - Physicial Exam PE: 07/20/20 19:05 Agree with resident exam - Medical Decision Making 07/20/20 19:07 65yo M with MMP including ESRD on HD presents to the ED with bleeding from LUE AV fistula VS stable 18G EJ placed on arrival Attempted removal of clamp placed by HD center, but pt continuing to bleed. Not bleeding through bandage after clamp placement LUE neurovascularly intact distally Defect too large for surgicel Case discussed with Dr. Garland, recommends no suture and to continue direct pressure until AM when he will evaluate pt. Requests NPO at [place] Will perform Q2h NV checks and admit to hospitalst. Discharge - Discharge Information Problems reviewed: Yes Clinical Impression/Diagnosis: Hemorrhage of arteriovenous fistula, Surgical arteriovenous fistula hemorrhage Condition: Stable [facility]position: [facility] - Follow up/Referral - Patient Discharge Instructions - Post Discharge Activity
--- NOTE | 2020-07-20 19:43 | HP ---
Admitting History and Physical - Primary Care Physician PCP: Maddie Davenport - Admission Chief Complaint: Bleeding from AV Fistula History of Present Illness: This is a 65 y/o male from [facility] with a PMHx of ESRD (HD- ,, ), Anemia, Thrombocytopenia, DVT(RLE) ,HTN, HLD, GERD, Dementia, s/p Thrombectomy 05/2020. Who presents to the ED from the dialysis center sent in for uncontrolled bleeding from his L- AV Fistula. 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 Patient has no other complaints. 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: Yes: Dementia Cardiovascular: Yes: CAD (s/p CABG), HTN, Hyperlipdemia Gastrointestinal: Yes: Constipation, Diverticulosis, Other (Multiple colon adenomas removed 08/10) Hepatobiliary: Yes: Other Renal/: Yes: Renal Failure, Hemodialysis Heme/Onc: Yes: Anemia - Past Surgical History Past Surgical History: Yes: AV Fistula/Graft, CABG, Colonoscopy - Smoking History Smoking history: Never smoked Have you smoked in the past 12 months: No Aproximately how many cigarettes per day: 0 - Alcohol/Substance Use Hx Alcohol Use: No History of Substance Use: reports: None (Denies) - Social History Usual Living Arrangement: Yes: Alf ADL: Support Services Home Medications - Allergies Allergies/Adverse Reactions: Allergies Allergy/AdvReac Type Severity Reaction Status Date / Time No Known Allergies Allergy Verified 06/05/20 16:58 - Home Medications Home Medications: Ambulatory Orders Acetaminophen [Tylenol] 650 mg PO Q6H PRN 07/19/18 Amlodipine Besylate [Norvasc -] 10 mg PO DAILY 07/19/18 Atorvastatin Ca [Lipitor] 10 mg PO HS 07/19/18 Clonidine Patch [Catapres Tts Patch -] 0.2 mg TD MCMULLEN 07/19/18 Carvedilol [Coreg -] 25 mg PO BID 07/17/19 Folic Acid 1 mg PO DAILY 07/17/19 Lactobacillus Acidophilus [Bacid -] 1 cap PO DAILY 07/17/19 Vitamin B Comp W-C [Nephro-Alejandro -] 0.8 mg PO DAILY 07/17/19 Aspirin [ASA -] 325 mg PO DAILY 07/21/20 Docusate Sodium [Colace] 100 mg PO BID 07/21/20 hydrALAZINE HCL [Apresoline -] 50 mg PO TID 07/21/20 Family Medical History Family History: Unable to Obtain Review of Systems Unable to obtain ROS, reason: Dementia Physical Examination Vital Signs: Vital Signs Temperature 98.5 F 07/20/20 16:10 Pulse Rate 70 07/20/20 16:55 Respiratory Rate 18 07/20/20 16:10 Blood Pressure 166/72 07/20/20 16:10 O2 Sat by Pulse Oximetry (%) 97 07/20/20 16:55 Constitutional: Yes: No Distress, Calm, Thin Eyes: Yes: Conjunctiva Clear, EOM Intact, PERRL HENT: Yes: Atraumatic, Normocephalic Neck: Yes: Supple, Trachea Midline Cardiovascular: Yes: Regular Rate and Rhythm, S1, S2 Respiratory: Yes: Regular, Diminished (bases). No: Accessory Muscle Use, SOB, SOB on Exertion, Tachypnea Gastrointestinal: Yes: Soft, Hypoactive Bowel Sounds. No: Tenderness, Tenderness, Epigastrium, Tenderness, Rebound ...Rectal Exam: Yes: Deferred Breast(s): Yes: WNL Musculoskeletal: Yes: WNL Extremities: Yes: Other (AV- Fistula with pressure dressing, pulse, no Thrill appreciated) Peripheral Pulses WNL: Yes Wound/Incision: Yes: Sutures Removed Neurological: Yes: Alert, Confusion ...Motor Strength: WNL Psychiatric: Yes: Alert Labs: CBC, BMP 07/20/20 16:45 07/20/20 16:45 Laboratory Results - last 24 hr 07/20/20 07/20/20 07/20/20 16:45 16:45 16:45 WBC 3.9 L RBC 3.82 L Hgb 11.5 L Hct 34.5 L D MCV 90.5 MCH 30.1 MCHC 33.3 RDW 20.1 H Plt Count 128 L D MPV 8.8 D PT with INR 11.30 INR 0.96 PTT (Actin FS) 35.4 Sodium 133 L Potassium 3.4 L Chloride 96 L Carbon Dioxide 29 Anion Gap 8 BUN 16.8 Creatinine 2.4 H Est GFR (CKD-EPI)AfAm 32.07 Est GFR (CKD-EPI)NonAf 27.67 Random Glucose 148 H Calcium 8.8 Total Bilirubin 0.8 AST 24 ALT 27 Alkaline Phosphatase 221 H Total Protein 7.2 Albumin 3.7 Blood Type Antibody Screen 07/20/20 16:45 WBC RBC Hgb Hct MCV MCH MCHC RDW Plt Count MPV PT with INR INR PTT (Actin FS) Sodium Potassium Chloride Carbon Dioxide Anion Gap BUN Creatinine Est GFR (CKD-EPI)AfAm Est GFR (CKD-EPI)NonAf Random Glucose Calcium Total Bilirubin AST ALT Alkaline Phosphatase Total Protein Albumin Blood Type A POSITIVE Antibody Screen Negative Imaging - Results Chest X-ray: Image Reviewed EKG: Pending Problem List - Problems (1) Hemorrhage of arteriovenous fistula Assessment/Plan: Continue pressure dressing Neurovascular checks Appreciate Vascular consult, aware- per ED resident Monitor CBC Monitor vitals Code(s): T82.838A - HEMORRHAGE DUE TO VASCULAR PROSTH DEV/GRFT, INIT (2) ESRD (end stage renal disease) Assessment/Plan: HD- ,, Appreciate Nephrology consult- HD Management Monitor CMP Monitor vitals Avoid Nephrotoxic drugs Code(s): N18.6 - END STAGE RENAL DISEASE (3) Thrombocytopenia Assessment/Plan: at baseline Will continue to monitor Code(s): D69.6 - THROMBOCYTOPENIA, UNSPECIFIED (4) HTN (hypertension) Assessment/Plan: stable Monitor BP Continue home meds when PO resumes Consider IV antihypertensives for now Monitor renal function Code(s): I10 - ESSENTIAL (PRIMARY) HYPERTENSION (5) S/P CABG (coronary artery bypass graft) Assessment/Plan: Will continue to monitor and treat with interventions accordingly Code(s): Z95.1 - PRESENCE OF AORTOCORONARY BYPASS GRAFT (6) Encounter for screening laboratory testing for COVID-19 virus Assessment/Plan: Low Risk COVID PCR-pending Isolation Precautions Code(s): Z11.59 - ENCOUNTER FOR SCREENING FOR OTHER VIRAL DISEASES Assessment/Plan This is a 65 y/o male from [facility] with a PMHx of ESRD (HD- ,, ), Anemia, Thrombocytopenia, DVT(RLE) ,HTN, HLD, GERD, Dementia, s/p Thrombectomy 05/2020. Admitted to Telemetry for Bleeding from AV Fistula, ESRD for further evaluation of their emergent condition. Plan: See Problem List FEN Replete lytes prn NPO DVT ppx OOB SCDs Hold AC secondary to Anemia, Active bleeding from AV-Fistula Dispo: Requires Inpatient Care Visit type - Emergency Visit Emergency Visit: Yes ED Registration Date: 07/20/20 Care time: The patient presented to the Emergency Department on the above date and was hospitalized for further evaluation of their emergent condition. - New Patient This patient is new to me today: Yes Date on this admission: 07/20/20 - Critical Care Critical Care patient: No
[2020-07-21] MEDS ORDERED: DEXTROSE 50%-WATER 25 GM/50 ML DISP.SYRIN IVPUSH ONE (06:24)
[2020-07-21 08:12] LABS: BASO % 0.6 % (0-2.0); EOS % 6.4 % (0-4.5); HEMOGLOBIN 11.3 GM/dL (11.7-16.9); LYMPH % 21.1 % (8-40); MCH 30.1 pg (25.7-33.7); MCHC 33.3 g/dl (32.0-35.9); MEAN CELL VOLUME 90.5 fl (80-96); MEAN PLT VOLUME 8.8 fl (7.5-11.1); MONO % 16.8 % (3.8-10.2); NEUT % 55.1 % (42.8-82.8); PLATELET COUNT 132 K/MM3 (134-434); RBC 3.76 M/mm3 (4.00-5.60); RDW 20.5 % (11.9-15.9); WHITE BLOOD COUNT 3.8 K/mm3 (4.0-10.0)
[2020-07-21 08:42] LABS: ALBUMIN 3.7 g/dl (3.4-5.0); BILIRUBIN,TOTAL 0.6 mg/dL (0.2-1); BLOOD UREA NITROGEN 23.8 mg/dL (7-18); CREATININE 3.5 mg/dL (0.55-1.3); TOT PROT 6.7 g/dl (6.4-8.2)
[2020-07-21 08:51] LABS: INR 1.02 (0.83-1.09)
--- NOTE | 2020-07-21 08:58 | CONSULT ---
Consult - text type - Consultation Consultation Note: 65 yo man ESRD on HD with left arm AV graft. He is 1 month s/p open thrombectomy of the graft. Venogram did not show any venous or graft stenosis at that tome. Yesterday he had prolonged bleeding from the arm following dialysis. Eventually bleeding stopped with pressure. Currently he is sleeping. Left arm has no evidence of bleeding - - no pressure dressing in place. There are no wounds over the graft and no bleeding, swelling, hematoma or other abnormality in the arm. The graft pulse is present and normal. Hand is warm. Coags WNL. Imp: No evidence for graft infection, wound or venous hypertension in the arm. Rec: Dialysis as in-patient. If no bleeding after treatment, he can be discharged.
[2020-07-21 09:04] LABS: ANISOCYTOSIS 2+; MACROCYTOSIS 0; PLATELET ESTIMATE DECREASED
[2020-07-21] MEDS ORDERED: ACETAMINOPHEN 325 MG TABLET (FP) PO PRN (10:51)
--- NOTE | 2020-07-21 10:51 | PN ---
Progress Note, Physician History of Present Illness: Patient seen and examined. No complaints. Comfortable. No bleeding - Objective Vital Signs: Vital Signs Temperature 98.4 F 07/21/20 08:00 Pulse Rate 61 07/21/20 08:00 Respiratory Rate 20 07/21/20 09:00 Blood Pressure 153/59 L 07/21/20 08:00 O2 Sat by Pulse Oximetry (%) 100 07/21/20 09:00 Constitutional: Yes: No Distress, Calm Neck: Yes: Supple Cardiovascular: Yes: Regular Rate and Rhythm Gastrointestinal: Yes: Soft Edema: No Labs: CBC, BMP 07/21/20 06:52 07/21/20 06:52 INR, PTT INR 1.02 (0.83-1.09) 07/21/20 06:52 Problem List - Problems (1) Anemia Code(s): D64.9 - ANEMIA, UNSPECIFIED (2) Bleeding from dialysis shunt Code(s): T82.838A - HEMORRHAGE DUE TO VASCULAR PROSTH DEV/GRFT, INIT (3) CAD (coronary artery disease) Code(s): I25.10 - ATHSCL HEART DISEASE OF [place] CORONARY ARTERY W/O ANG PCTRS Qualifiers: Coronary Disease-Associated Artery/Lesion type: [place] artery [place] vs. 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
[2020-07-21] MEDS ORDERED: cloNIDine-TTS 0.2 MG/24 HOURS PATCH.TDWK TD SCH (11:00)
[2020-07-21] MEDS ORDERED: CALCIUM ACETATE 667 MG CAPSULE (FP) PO SCH (12:00)
--- NOTE | 2020-07-21 12:14 | DS ---
Physical Examination Vital Signs: Vital Signs Temperature 98.4 F 07/21/20 08:00 Pulse Rate 61 07/21/20 08:00 Respiratory Rate 20 07/21/20 09:00 Blood Pressure 153/59 L 07/21/20 08:00 O2 Sat by Pulse Oximetry (%) 100 07/21/20 09:00 Findings/Remarks: See today's progress note Labs: CBC, BMP 07/21/20 06:52 07/21/20 06:52 Discharge Summary Problems reviewed: Yes Reason For Visit: HEMORRHAGE OF ARTERIOVENOUS FISTULA Current Active Problems Encounter for screening laboratory testing for COVID-19 virus (Acute) Hemorrhage of arteriovenous fistula (Acute) Surgical arteriovenous fistula hemorrhage (Acute) Hospital Course: 65 yo man ESRD on HD and other possible medical history as listed with left arm AV graft. He is 1 month s/p open thrombectomy of the graft. Yesterday he had prolonged bleeding from the arm following dialysis. Eventually bleeding stopped with pressure. no complaints today Stable no further bleeding discharge back to longterm--- off aspirin Condition: Stable - Instructions Referrals: Maddie Davenport MD [Primary Care Provider] - Disposition: [facility] - Home Medications Comprehensive Discharge Medication List: Ambulatory Orders Acetaminophen [Tylenol] 650 mg PO Q6H PRN 07/19/18 Amlodipine Besylate [Norvasc -] 10 mg PO DAILY 07/19/18 Atorvastatin Ca [Lipitor] 10 mg PO HS 07/19/18 Clonidine Patch [Catapres Tts Patch -] 0.2 mg TD MCMULLEN 07/19/18 Carvedilol [Coreg -] 25 mg PO BID 07/17/19 Folic Acid 1 mg PO DAILY 07/17/19 Lactobacillus Acidophilus [Bacid -] 1 cap PO DAILY 07/17/19 Vitamin B Comp W-C [Nephro-Alejandro -] 0.8 mg PO DAILY 07/17/19 hydrALAZINE HCL [Apresoline -] 50 mg PO TID 07/21/20
[2020-07-21 12:36] VITALS: BP 144/55; PULSE 60; TEMP 98.2
[2020-07-21] MEDS ORDERED: hydrALAZINE HCL 50 MG TABLET (FP) PO SCH (14:00)
[2020-07-21] MEDS ORDERED: ATORVASTATIN CA 10 MG TABLET (FP) PO SCH (22:00)
[2020-07-21] MEDS ORDERED: CARVEDILOL 25 MG TABLET (FP) PO SCH (22:00)
[2020-07-22] MEDS ORDERED: VITAMIN B COMP W-C 1 EA TABLET (NEPHRO-VITE) PO SCH (10:00)
[2020-07-22] MEDS ORDERED: amLODIPine BESYLATE 10 MG TABLET (FP) PO SCH (10:00)
[2020-07-22] MEDS ORDERED: FOLIC ACID 1 MG TABLET (FP) PO SCH (10:00)
[2020-07-22] MEDS ORDERED: LACTOBACILLUS ACIDOPHILUS 1 TABLET PO SCH (10:00)
== END 2020-07-21 14:03 | DRG 314 ==
LOC: JER 16:09 → JERBED 18:27 → J4W 23:31
PROVIDERS: ADMIT Internal Medicine; ATTEND Internal Medicine
DX: T82.838A Hemorrhage due to vascular prosthetic devices, implants and grafts, initial encounter (principal); N18.6 End stage renal disease; I12.0 Hypertensive chronic kidney disease with stage 5 chronic kidney disease or end stage renal disease; Y83.8 Other surgical procedures as the cause of abnormal reaction of the patient, or of later complication, without mention of misadventure at the time of the procedure; I25.10 Atherosclerotic heart disease of native coronary artery without angina pectoris; E78.5 Hyperlipidemia, unspecified; D64.9 Anemia, unspecified; D69.6 Thrombocytopenia, unspecified; K21.9 Gastro-esophageal reflux disease without esophagitis; F03.90 Unspecified dementia, unspecified severity, without behavioral disturbance, psychotic disturbance, mood disturbance, and anxiety; E11.22 Type 2 diabetes mellitus with diabetic chronic kidney disease; K57.90 Diverticulosis of intestine, part unspecified, without perforation or abscess without bleeding; R13.10 Dysphagia, unspecified; Z95.1 Presence of aortocoronary bypass graft; Z86.718 Personal history of other venous thrombosis and embolism; Z99.2 Dependence on renal dialysis
CPT/HCPCS: 36415; 71045-TC-FY; 80053; 82962; 85025; 85027; 85610; 85730; 86850; 86900; 86901; 99285-25; U0003

== ENCOUNTER 2021-04-18 15:21 | Inpatient (IN) | payer OTHER ==
[2021-04-18 16:02] VITALS: BMI 21.6
[2021-04-18] MEDS ORDERED: PIPERACILLIN/TAZOB 2.25 GM 2.25 GM in DEXTROSE 5%-WATER - 50 ML IVPB ONE (17:20)
[2021-04-18] MEDS ORDERED: VANCOMYCIN 1 GM in D5W (PRE-DOCKED) 1,000 MG/250 ML IVPB ONE (17:20)
[2021-04-18 17:41] LABS: BASO % 0.5 % (0-2.0); EOS % 1.9 % (0-4.5); HEMATOCRIT 30.1 % (35.4-49); HEMOGLOBIN 10.2 GM/dL (11.7-16.9); LYMPH % 24.7 % (8-40); MCH 34.9 pg (25.7-33.7); MEAN CELL VOLUME 102.6 fl (80-96); MEAN PLT VOLUME 8.3 fl (7.5-11.1); MONO % 13.6 % (3.8-10.2); NEUT % 59.3 % (42.8-82.8); PLATELET COUNT 273 K/MM3 (134-434); RBC 2.93 M/mm3 (4.00-5.60); WHITE BLOOD COUNT 5.9 K/mm3 (4.0-10.0)
[2021-04-18 18:01] LABS: CALCIUM 9.7 mg/dL (8.5-10.1)
[2021-04-18 18:02] LABS: ALBUMIN 3.8 g/dl (3.4-5.0)
[2021-04-18 18:05] LABS: CREATININE 4.1 mg/dL (0.55-1.3)
[2021-04-18 18:06] LABS: BILIRUBIN,TOTAL 0.5 mg/dL (0.2-1)
[2021-04-18 18:24] LABS: EPI CELLS >36 /uL (0-25.1); HYALINE CASTS 2 /uL (0-3.1); URINE APPEARANCE TURBID; URINE BACTERIA 13 /uL (0-1359); URINE BILIRUBIN 1+ (NEGATIVE); URINE COLOR ORANGE; URINE GLUCOSE (UA) NEGATIVE (NEGATIVE); URINE KETONE NEGATIVE (NEGATIVE); URINE LEUK ESTERASE 3+ (NEGATIVE); URINE NITRITE NEGATIVE (NEGATIVE); URINE PROTEIN 4+ (NEGATIVE); URINE UROBILINOGEN 0.2 mg/dL (0.2-1.0); URINE WBC 9704 /uL (0-25.8)
[2021-04-18] MEDS ORDERED: PIPERACILLIN/TAZOB 2.25 GM 2.25 GM/50 ML BAG IVPB ONE (18:35)
[2021-04-18] MEDS ORDERED: VANCOMYCIN 1 GRAM (PRE-DOCKED) 1,000 MG/250 ML BAG IVPB ONE (18:36)
[2021-04-18] MEDS ORDERED: ACETAMINOPHEN 325 MG TABLET (FP) PO PRN (18:38)
[2021-04-18 19:31] LABS: URINE RBC 5716.8 /uL (0-23.9)
[2021-04-18 20:04] LABS: ANISOCYTOSIS 1+; MACROCYTOSIS 1+; PLATELET ESTIMATE NORMAL
[2021-04-18] MEDS ORDERED: METOPROLOL TARTRATE 50 MG TABLET (FP) ONE (22:06)
[2021-04-18] MEDS: METOPROLOL TARTRATE 50 MG TABLET (FP) PO SCH (22:10)
[2021-04-19] MEDS: CALCIUM ACETATE 667 MG CAPSULE (FP) PO SCH ×3 (09:00→17:32)
[2021-04-19] MEDS ORDERED: PNEUMOC 13-VAL CONJ-DIP CRM/PF 0.5 ML DISP.SYRIN IM ONE (09:00)
[2021-04-19] MEDS ORDERED: ENOXAPARIN NA (PORCINE) 30 MG/0.3 ML DISP.SYRIN SQ SCH (10:00)
[2021-04-19] MEDS ORDERED: SODIUM CHLORIDE 250 ML IV PRN (12:07)
[2021-04-19] MEDS ORDERED: PT OWN MED DRAWER 7, Y5N ONE (12:15)
[2021-04-19] MEDS ORDERED: HEPARIN NA (PORCINE) 5,000 UNITS/ML 1ML VIAL IVPUSH ONE (12:30)
[2021-04-19] MEDS ORDERED: EPOETIN ALFA-EPBX 3,000 UNIT/ML VIAL SQ ONE (12:30)
[2021-04-19 13:27] LABS: BASO % 0.7 % (0-2.0); EOS % 2.1 % (0-4.5); HEMATOCRIT 25.3 % (35.4-49); HEMOGLOBIN 8.8 GM/dL (11.7-16.9); LYMPH % 22.5 % (8-40); MCH 35.3 pg (25.7-33.7); MCHC 34.6 g/dl (32.0-35.9); MEAN PLT VOLUME 8.4 fl (7.5-11.1); MONO % 14.2 % (3.8-10.2); NEUT % 60.5 % (42.8-82.8); PLATELET COUNT 247 K/MM3 (134-434); RBC 2.48 M/mm3 (4.00-5.60); RDW 17.6 % (11.9-15.9); WHITE BLOOD COUNT 4.7 K/mm3 (4.0-10.0)
[2021-04-19] MEDS: METOPROLOL TARTRATE 50 MG TABLET (FP) PO SCH ×2 (16:27→21:22)
[2021-04-19] MEDS: amLODIPine BESYLATE 5 MG TABLET (FP) PO SCH (16:27)
[2021-04-19] MEDS: VITAMIN B COMP W-C 1 EA TABLET (NEPHRO-VITE) PO SCH (16:27)
[2021-04-20] MEDS ORDERED: ENOXAPARIN NA (PORCINE) 30 MG/0.3 ML DISP.SYRIN SQ SCH (10:00)
[2021-04-20] MEDS: CALCIUM ACETATE 667 MG CAPSULE (FP) PO SCH ×3 (10:11→17:24)
[2021-04-20] MEDS: amLODIPine BESYLATE 5 MG TABLET (FP) PO SCH (10:13)
[2021-04-20] MEDS: VITAMIN B COMP W-C 1 EA TABLET (NEPHRO-VITE) PO SCH (10:13)
[2021-04-20] MEDS: METOPROLOL TARTRATE 50 MG TABLET (FP) PO SCH ×2 (10:13→22:47)
[2021-04-20 10:40] LABS: CALCIUM 8.9 mg/dL (8.5-10.1)
[2021-04-20 10:41] LABS: ALBUMIN 3.1 g/dl (3.4-5.0); BLOOD UREA NITROGEN 16.8 mg/dL (7-18)
[2021-04-20 10:44] LABS: CREATININE 3.3 mg/dL (0.55-1.3)
[2021-04-20 10:46] LABS: BILIRUBIN,TOTAL 0.4 mg/dL (0.2-1); TOT PROT 6.6 g/dl (6.4-8.2)
[2021-04-20] MEDS ORDERED: VANCOMYCIN 1 GRAM (PRE-DOCKED) 1,000 MG/250 ML BAG IVPB ONE (13:00)
[2021-04-21] MEDS: CALCIUM ACETATE 667 MG CAPSULE (FP) PO SCH ×3 (09:17→17:10)
[2021-04-21] MEDS: amLODIPine BESYLATE 5 MG TABLET (FP) PO SCH (09:17)
[2021-04-21] MEDS: VITAMIN B COMP W-C 1 EA TABLET (NEPHRO-VITE) PO SCH (09:17)
[2021-04-21] MEDS: METOPROLOL TARTRATE 50 MG TABLET (FP) PO SCH ×2 (09:17→22:36)
[2021-04-22] MEDS ORDERED: EPOETIN ALFA-EPBX 3,000 UNIT, EPOETIN ALFA-EPBX 2,000 UNIT SQ ONE (07:00)
[2021-04-22] MEDS ORDERED: HEPARIN NA (PORCINE) 5,000 UNITS/ML 1ML VIAL IVPUSH ONE (07:00)
[2021-04-22] MEDS ORDERED: SODIUM CHLORIDE 250 ML IV PRN (07:00)
[2021-04-22] MEDS ORDERED: PT OWN MED DRAWER 7, Y5N ONE (07:05)
[2021-04-22] MEDS: CALCIUM ACETATE 667 MG CAPSULE (FP) PO SCH ×3 (08:17→17:35)
[2021-04-22 08:24] LABS: CALCIUM 9.5 mg/dL (8.5-10.1)
[2021-04-22 08:25] LABS: BLOOD UREA NITROGEN 34.3 mg/dL (7-18)
[2021-04-22 08:28] LABS: CREATININE 6.5 mg/dL (0.55-1.3)
[2021-04-22 08:31] LABS: MCH 35.3 pg (25.7-33.7); MCHC 34.4 g/dl (32.0-35.9); MEAN CELL VOLUME 102.5 fl (80-96); MEAN PLT VOLUME 8.3 fl (7.5-11.1); PLATELET COUNT 311 K/MM3 (134-434); RBC 2.83 M/mm3 (4.00-5.60); RDW 18.7 % (11.9-15.9); WHITE BLOOD COUNT 2.7 K/mm3 (4.0-10.0)
[2021-04-22] MEDS ORDERED: EPOETIN ALFA-EPBX 4,000 UNIT/ML VIAL SQ ONE (12:37)
[2021-04-22] MEDS: METOPROLOL TARTRATE 50 MG TABLET (FP) PO SCH (12:43)
[2021-04-22] MEDS: amLODIPine BESYLATE 5 MG TABLET (FP) PO SCH (12:43)
[2021-04-22] MEDS: VITAMIN B COMP W-C 1 EA TABLET (NEPHRO-VITE) PO SCH (12:43)
[2021-04-22 20:04] VITALS: BP 144/58; PULSE 71; TEMP 97.9
== END 2021-04-22 20:05 | DRG 682 ==
LOC: JER 15:21 → JERBED 16:27 → MERGE 16:27 → J7W 04-19 02:47
PROVIDERS: ADMIT Internal Medicine; ATTEND Internal Medicine
PROC: 5A1D70Z Performance of Urinary Filtration, Intermittent, Less than 6 Hours Per Day (ICD-10-PCS; principal; 2021-04-19)
PROC: 5A1D70Z Performance of Urinary Filtration, Intermittent, Less than 6 Hours Per Day (ICD-10-PCS; 2021-04-22)
DX: I12.0 Hypertensive chronic kidney disease with stage 5 chronic kidney disease or end stage renal disease (principal); N18.6 End stage renal disease; R78.81 Bacteremia; K21.9 Gastro-esophageal reflux disease without esophagitis; I25.10 Atherosclerotic heart disease of native coronary artery without angina pectoris; R41.82 Altered mental status, unspecified; B95.62 Methicillin resistant Staphylococcus aureus infection as the cause of diseases classified elsewhere; H54.8 Legal blindness, as defined in USA; Z95.1 Presence of aortocoronary bypass graft; Z99.2 Dependence on renal dialysis; Z86.718 Personal history of other venous thrombosis and embolism
CPT/HCPCS: 36415; 71045-TC-FY; 80048; 80053; 81003; 85025; 85027; 86803; 87040; 87086; 87340; 93005; 93010; 93306-TC; 99285-25; C9803; G0480; J1644; Q5106; U0003; U0005

== ENCOUNTER 2021-11-28 15:55 | Inpatient (IN) | payer OTHER ==
[2021-11-28 17:01] VITALS: BMI 21.2
[2021-11-28 19:17] LABS: BASO % 1.1 % (0-2.0); EOS % 1.9 % (0-4.5); HEMATOCRIT 40.6 % (35.4-49); HEMOGLOBIN 13.7 GM/dL (11.7-16.9); LYMPH % 18.8 % (8-40); MCH 33.6 pg (25.7-33.7); MCHC 33.7 g/dl (32.0-35.9); MEAN CELL VOLUME 99.8 fl (80-96); MEAN PLT VOLUME 9.3 fl (7.5-11.1); MONO % 6.2 % (3.8-10.2); PLATELET COUNT 181 10^3/uL (134-434); RBC 4.07 M/mm3 (4.00-5.60); RDW 14.5 % (11.9-15.9)
[2021-11-28 19:23] LABS: INR 0.89 (0.83-1.09); PROTHROMBIN TIME (PATIENT) 10.2 SEC (9.7-13.0)
[2021-11-28 20:03] LABS: ALBUMIN 4.6 g/dl (3.4-5.0); ALK PHOS 130 U/L (45-117); ANION GAP 21 MMOL/L (8-16); BILIRUBIN,TOTAL 0.8 mg/dL (0.2-1); BLOOD UREA NITROGEN > 150.0 mg/dL (7-18); CALCIUM 12.4 mg/dL (8.5-10.1); CHLORIDE 98 mmol/L (98-107); CO2 26 mmol/L (21-32); CREATININE > 20.0 mg/dL (0.55-1.3); GLUCOSE,RANDOM 172 mg/dL (74-106); MAGNESIUM 6.1 mg/dL (1.8-2.4); PHOSPHOROUS 2.2 mg/dL (2.5-4.9); SGOT/AST 27 U/L (15-37); SGPT/ALT 31 U/L (13-61); SODIUM 145 mmol/L (136-145); TOT PROT 8.9 g/dl (6.4-8.2)
[2021-11-28] MEDS ORDERED: CALCIUM GLUCONATE 10% - 1,000 MG/10 ML VIAL IVPUSH ONE (20:17)
[2021-11-28] MEDS ORDERED: DEXTROSE 50%-WATER - 25 GM/50 ML VIAL IVPUSH ONE (20:19)
[2021-11-28] MEDS ORDERED: INSULIN REGULAR HUMAN 100 UNITS/ML *VIAL IVPUSH ONE (20:19)
[2021-11-28] MEDS ORDERED: DEXTROSE 50%-WATER 25 GM/50 ML DISP.SYRIN ONE (20:26)
[2021-11-28] MEDS ORDERED: CALCIUM GLUCONATE 10% - 1,000 MG/10 ML VIAL ONE (20:26)
[2021-11-28] MEDS ORDERED: SODIUM ZIRCONIUM CYCLOSILICATE (LOKELMA) 5 GM PACKET ONE (20:26)
[2021-11-29] MEDS ORDERED: HEPARIN NA (PORCINE) 5,000 UNITS/ML 1ML VIAL ONE ×4 (00:06→22:04)
[2021-11-29] MEDS: HEPARIN NA (PORCINE) 5,000 UNITS/ML 1ML VIAL SQ SCH ×4 (00:43→22:09)
[2021-11-29] MEDS ORDERED: FUROSEMIDE 40 MG/4 ML INJECTABLE VIAL IVPUSH ONE (00:53)
[2021-11-29] MEDS ORDERED: hydrALAZINE HCL 20 MG/ML VIAL IVPUSH PRN (01:08)
[2021-11-29 01:19] LABS: CHLORIDE 103 mmol/L (98-107); SODIUM 147 mmol/L (136-145)
[2021-11-29 01:20] LABS: CALCIUM 11.8 mg/dL (8.5-10.1); CO2 26 mmol/L (21-32)
[2021-11-29 01:21] LABS: GLUCOSE,RANDOM 195 mg/dL (74-106)
[2021-11-29 01:42] LABS: ANION GAP 19 MMOL/L (8-16); CREATININE 23.7 mg/dL (0.55-1.3)
[2021-11-29] MEDS ORDERED: SODIUM CHLORIDE 250 ML IV PRN (07:47)
[2021-11-29 08:36] LABS: BASO % 1.1 % (0-2.0); EOS % 1.6 % (0-4.5); HEMATOCRIT 36.6 % (35.4-49); LYMPH % 20.1 % (8-40); MCHC 32.7 g/dl (32.0-35.9); MEAN CELL VOLUME 100.9 fl (80-96); MEAN PLT VOLUME 9.6 fl (7.5-11.1); MONO % 6.8 % (3.8-10.2); NEUT % 70.4 % (42.8-82.8); PLATELET COUNT 183 10^3/uL (134-434); RBC 3.63 M/mm3 (4.00-5.60); RDW 14.6 % (11.9-15.9); WHITE BLOOD COUNT 4.8 K/mm3 (4.0-10.0)
[2021-11-29 08:45] LABS: CHLORIDE 101 mmol/L (98-107); SODIUM 148 mmol/L (136-145)
[2021-11-29 08:57] LABS: CALCIUM 12.2 mg/dL (8.5-10.1)
[2021-11-29 08:58] LABS: ALBUMIN 3.9 g/dl (3.4-5.0); CO2 23 mmol/L (21-32); GLUCOSE,RANDOM 168 mg/dL (74-106)
[2021-11-29 09:01] LABS: PHOSPHOROUS 2.2 mg/dL (2.5-4.9); SGOT/AST 21 U/L (15-37); SGPT/ALT 24 U/L (13-61)
[2021-11-29 09:02] LABS: BILIRUBIN,TOTAL 0.8 mg/dL (0.2-1); TOT PROT 7.6 g/dl (6.4-8.2)
[2021-11-29 09:03] LABS: ALK PHOS 111 U/L (45-117)
[2021-11-29] MEDS ORDERED: SEVELAMER CARBONATE 0.8 GM POWDER PACKET PO ONE (09:49)
[2021-11-29 10:14] LABS: ANION GAP 24 MMOL/L (8-16); BLOOD UREA NITROGEN 302.1 mg/dL (7-18); CREATININE 23.9 mg/dL (0.55-1.3)
[2021-11-29] MEDS ORDERED: DEXTROSE 50%-WATER - 25 GM/50 ML VIAL IVPUSH ONE (10:29)
[2021-11-29] MEDS ORDERED: INSULIN REGULAR HUMAN 100 UNITS/ML *VIAL IVPUSH ONE (10:30)
[2021-11-29] MEDS ORDERED: SODIUM POLYSTYRENE SULFONATE 15 GM/60 ML BOTTLE PO ONE (10:35)
[2021-11-29] MEDS ORDERED: DEXTROSE 50%-WATER 25 GM/50 ML DISP.SYRIN ONE (10:49)
[2021-11-29] MEDS ORDERED: amLODIPine BESYLATE 5 MG TABLET (FP) ONE (10:49)
[2021-11-29] MEDS: amLODIPine BESYLATE 10 MG TABLET (FP) PO SCH (10:58)
[2021-11-29] MEDS ORDERED: LORazepam 2 MG/ML SDV VIAL IVPUSH PRN (15:17)
[2021-11-29] MEDS: hydrALAZINE HCL 50 MG TABLET (FP) PO SCH ×2 (16:35→21:56)
[2021-11-29] MEDS ORDERED: SODIUM CHLORIDE 0.45% 1,000 ML IV SCH (18:00)
[2021-11-29] MEDS ORDERED: SODIUM ZIRCONIUM CYCLOSILICATE (LOKELMA) 5 GM PACKET PO ONE (20:20)
[2021-11-29] MEDS ORDERED: SODIUM ZIRCONIUM CYCLOSILICATE (LOKELMA) 5 GM PACKET ONE (21:45)
[2021-11-29] MEDS ORDERED: ATORVASTATIN CA 10 MG TABLET (FP) ONE (21:45)
[2021-11-29] MEDS ORDERED: MIRTAZAPINE 15 MG TABLET (FP) ONE (21:45)
[2021-11-29] MEDS ORDERED: CARVEDILOL 12.5 MG TABLET (FP) ONE (21:45)
[2021-11-29] MEDS: SODIUM ZIRCONIUM CYCLOSILICATE (LOKELMA) 5 GM PACKET PO SCH (21:56)
[2021-11-29] MEDS: CARVEDILOL 25 MG TABLET (FP) PO SCH (21:56)
[2021-11-29] MEDS: ATORVASTATIN CA 10 MG TABLET (FP) PO SCH (21:56)
[2021-11-29] MEDS: MIRTAZAPINE 15 MG TABLET (FP) PO SCH (21:56)
[2021-11-29] MEDS: ARTIFICIAL TEARS (POLYVINYL ALCOHOL) OPTH DROPS OU SCH (23:10)
[2021-11-30] MEDS ORDERED: hydrALAZINE HCL 25 MG TABLET (FP) ONE (06:02)
[2021-11-30] MEDS ORDERED: HEPARIN NA (PORCINE) 5,000 UNITS/ML 1ML VIAL ONE ×2 (06:02→16:48)
[2021-11-30] MEDS: hydrALAZINE HCL 50 MG TABLET (FP) PO SCH ×3 (06:37→21:04)
[2021-11-30] MEDS: ARTIFICIAL TEARS (POLYVINYL ALCOHOL) OPTH DROPS OU SCH ×3 (06:37→21:05)
[2021-11-30] MEDS: HEPARIN NA (PORCINE) 5,000 UNITS/ML 1ML VIAL SQ SCH ×3 (06:37→21:05)
[2021-11-30 09:29] LABS: BASO % 0.7 % (0-2.0); EOS % 2.9 % (0-4.5); HEMATOCRIT 33.9 % (35.4-49); HEMOGLOBIN 11.4 GM/dL (11.7-16.9); LYMPH % 25.6 % (8-40); MCH 33.6 pg (25.7-33.7); MCHC 33.5 g/dl (32.0-35.9); MEAN CELL VOLUME 100.4 fl (80-96); MEAN PLT VOLUME 9.2 fl (7.5-11.1); MONO % 9.5 % (3.8-10.2); NEUT % 61.3 % (42.8-82.8); PLATELET COUNT 145 10^3/uL (134-434); RBC 3.37 M/mm3 (4.00-5.60); RDW 14.5 % (11.9-15.9); WHITE BLOOD COUNT 5.6 K/mm3 (4.0-10.0)
[2021-11-30 09:46] LABS: GLUCOSE,RANDOM 130 mg/dL (74-106)
[2021-11-30 09:51] LABS: CALCIUM 11.1 mg/dL (8.5-10.1)
[2021-11-30 09:53] LABS: SGPT/ALT 21 U/L (13-61)
[2021-11-30 09:54] LABS: BILIRUBIN,TOTAL 0.8 mg/dL (0.2-1); SGOT/AST 24 U/L (15-37); TOT PROT 7.6 g/dl (6.4-8.2)
[2021-11-30 09:55] LABS: ALK PHOS 98 U/L (45-117)
[2021-11-30] MEDS: amLODIPine BESYLATE 10 MG TABLET (FP) PO SCH (10:21)
[2021-11-30] MEDS: CARVEDILOL 25 MG TABLET (FP) PO SCH ×2 (10:21→21:05)
[2021-11-30 10:53] LABS: ANION GAP 16 MMOL/L (8-16); CHLORIDE 98 mmol/L (98-107); CO2 27 mmol/L (21-32); SODIUM 140 mmol/L (136-145)
[2021-11-30 11:19] LABS: CREATININE 20.7 mg/dL (0.55-1.3)
[2021-11-30] MEDS: SODIUM ZIRCONIUM CYCLOSILICATE (LOKELMA) 5 GM PACKET PO SCH ×2 (16:47→21:05)
[2021-11-30] MEDS ORDERED: SODIUM CHLORIDE 250 ML IV PRN (16:55)
[2021-11-30] MEDS: MIRTAZAPINE 15 MG TABLET (FP) PO SCH (21:05)
[2021-11-30] MEDS: ATORVASTATIN CA 10 MG TABLET (FP) PO SCH (21:05)
[2021-12-01] MEDS: HEPARIN NA (PORCINE) 5,000 UNITS/ML 1ML VIAL SQ SCH ×3 (05:53→21:09)
[2021-12-01] MEDS: hydrALAZINE HCL 50 MG TABLET (FP) PO SCH ×3 (05:53→21:09)
[2021-12-01] MEDS ORDERED: PT OWN MED DRAWER 7, Y5N ONE (06:50)
[2021-12-01] MEDS: ARTIFICIAL TEARS (POLYVINYL ALCOHOL) OPTH DROPS OU SCH ×3 (06:50→21:09)
[2021-12-01] MEDS: LORazepam 2 MG/ML SDV VIAL IVPUSH SCH (10:03)
[2021-12-01] MEDS: SODIUM ZIRCONIUM CYCLOSILICATE (LOKELMA) 5 GM PACKET PO SCH ×2 (10:03→21:09)
[2021-12-01] MEDS: amLODIPine BESYLATE 10 MG TABLET (FP) PO SCH (10:03)
[2021-12-01] MEDS: CARVEDILOL 25 MG TABLET (FP) PO SCH ×2 (10:03→21:09)
[2021-12-01] MEDS: ATORVASTATIN CA 10 MG TABLET (FP) PO SCH (21:09)
[2021-12-01] MEDS: MIRTAZAPINE 15 MG TABLET (FP) PO SCH (21:10)
[2021-12-02] MEDS: hydrALAZINE HCL 50 MG TABLET (FP) PO SCH ×3 (05:54→22:51)
[2021-12-02] MEDS: ARTIFICIAL TEARS (POLYVINYL ALCOHOL) OPTH DROPS OU SCH ×3 (05:55→22:51)
[2021-12-02] MEDS: HEPARIN NA (PORCINE) 5,000 UNITS/ML 1ML VIAL SQ SCH ×3 (05:55→22:50)
[2021-12-02] MEDS ORDERED: cloNIDine-TTS 0.3 MG /24 HRS PATCH.TDWK TD SCH (10:00)
[2021-12-02] MEDS: SODIUM ZIRCONIUM CYCLOSILICATE (LOKELMA) 5 GM PACKET PO SCH ×2 (10:04→22:51)
[2021-12-02] MEDS: amLODIPine BESYLATE 10 MG TABLET (FP) PO SCH (10:04)
[2021-12-02] MEDS: CARVEDILOL 25 MG TABLET (FP) PO SCH ×2 (10:04→22:51)
[2021-12-02 14:14] LABS: LDL CHOLESTEROL (ONLY SJRH) 88 mg/dL (5-100)
[2021-12-02 14:15] LABS: CHOLESTEROL 164 mg/dL (50-200); TRIGLYCERIDES 285 mg/dL (0-150)
[2021-12-02 14:18] LABS: HDL CHOLESTEROL 32 mg/dL (40-60); N-TERMINAL BNP 12697.4 pg/ml (5-125)
[2021-12-02 17:59] LABS: HEMATOCRIT 26.8 % (35.4-49); HEMOGLOBIN 8.8 GM/dL (11.7-16.9); MCH 32.9 pg (25.7-33.7); MCHC 32.9 g/dl (32.0-35.9); MEAN CELL VOLUME 100.1 fl (80-96); MEAN PLT VOLUME 9.3 fl (7.5-11.1); PLATELET COUNT 107 10^3/uL (134-434); RBC 2.67 M/mm3 (4.00-5.60); RDW 14.5 % (11.9-15.9)
[2021-12-02 18:21] LABS: CHLORIDE 105 mmol/L (98-107); SODIUM 147 mmol/L (136-145)
[2021-12-02 18:24] LABS: ALBUMIN 3.3 g/dl (3.4-5.0); ANION GAP 16 MMOL/L (8-16); CO2 26 mmol/L (21-32); GLUCOSE,RANDOM 138 mg/dL (74-106)
[2021-12-02 18:27] LABS: SGOT/AST 27 U/L (15-37); SGPT/ALT 22 U/L (13-61)
[2021-12-02 18:28] LABS: TOT PROT 5.9 g/dl (6.4-8.2)
[2021-12-02 18:29] LABS: BILIRUBIN,TOTAL 0.6 mg/dL (0.2-1)
[2021-12-02 18:30] LABS: ALK PHOS 81 U/L (45-117)
[2021-12-02 18:32] LABS: BLOOD UREA NITROGEN 131.2 mg/dL (7-18); CALCIUM 8.7 mg/dL (8.5-10.1); CREATININE 14.4 mg/dL (0.55-1.3)
[2021-12-02] MEDS ORDERED: PT OWN MED DRAWER 7, Y5N ONE (21:37)
[2021-12-02] MEDS: MIRTAZAPINE 15 MG TABLET (FP) PO SCH (22:51)
[2021-12-02] MEDS: ATORVASTATIN CA 10 MG TABLET (FP) PO SCH (22:51)
[2021-12-03] MEDS: HEPARIN NA (PORCINE) 5,000 UNITS/ML 1ML VIAL SQ SCH ×3 (06:14→21:30)
[2021-12-03] MEDS: hydrALAZINE HCL 50 MG TABLET (FP) PO SCH ×3 (06:14→21:09)
[2021-12-03] MEDS: ARTIFICIAL TEARS (POLYVINYL ALCOHOL) OPTH DROPS OU SCH ×3 (06:14→21:30)
[2021-12-03] MEDS: amLODIPine BESYLATE 10 MG TABLET (FP) PO SCH (11:09)
[2021-12-03] MEDS: CARVEDILOL 25 MG TABLET (FP) PO SCH ×2 (11:09→21:09)
[2021-12-03] MEDS: LORazepam 2 MG/ML SDV VIAL IVPUSH SCH (11:10)
[2021-12-03] MEDS: ACETAMINOPHEN 325 MG TABLET (FP) PO PRN (11:20)
[2021-12-03] MEDS ORDERED: SODIUM CHLORIDE 250 ML IV PRN ×2 (12:00→14:42)
[2021-12-03] MEDS ORDERED: cloNIDine-TTS 0.3 MG /24 HRS PATCH.TDWK TD SCH (14:38)
[2021-12-03] MEDS: SODIUM ZIRCONIUM CYCLOSILICATE (LOKELMA) 5 GM PACKET PO SCH ×2 (15:27→21:10)
[2021-12-03] MEDS ORDERED: SODIUM CHLORIDE 0.9% 500 ML INFUS.BAG IV ONE (16:30)
[2021-12-03] MEDS: AMINO ACIDS 4.25%/D5W 1,000 ML IV SCH (18:15)
[2021-12-03] MEDS ORDERED: VANCOMYCIN 1 GM in D5W (PRE-DOCKED) 1,000 MG/250 ML IVPB ONE (19:20)
[2021-12-03] MEDS: MIRTAZAPINE 15 MG TABLET (FP) PO SCH (21:10)
[2021-12-03] MEDS: ATORVASTATIN CA 10 MG TABLET (FP) PO SCH (21:10)
[2021-12-04] MEDS: ARTIFICIAL TEARS (POLYVINYL ALCOHOL) OPTH DROPS OU SCH ×3 (06:36→21:06)
[2021-12-04] MEDS: hydrALAZINE HCL 50 MG TABLET (FP) PO SCH ×3 (06:36→21:06)
[2021-12-04] MEDS ORDERED: EPOETIN ALFA-EPBX 3,000 UNIT/ML VIAL IVPUSH ONE (07:15)
[2021-12-04 09:13] LABS: BASO % 0.2 % (0-2.0); EOS % 0.2 % (0-4.5); HEMATOCRIT 30.7 % (35.4-49); LYMPH % 11.4 % (8-40); MCH 32.6 pg (25.7-33.7); MCHC 32.7 g/dl (32.0-35.9); MEAN CELL VOLUME 99.7 fl (80-96); MEAN PLT VOLUME 9.6 fl (7.5-11.1); MONO % 8.1 % (3.8-10.2); NEUT % 80.1 % (42.8-82.8); PLATELET COUNT 102 10^3/uL (134-434); RBC 3.08 M/mm3 (4.00-5.60); RDW 14.4 % (11.9-15.9); WHITE BLOOD COUNT 6.5 K/mm3 (4.0-10.0)
[2021-12-04 09:41] LABS: CHLORIDE 103 mmol/L (98-107); SODIUM 144 mmol/L (136-145)
[2021-12-04 09:48] LABS: ANION GAP 11 MMOL/L (8-16); CO2 29 mmol/L (21-32); GLUCOSE,RANDOM 237 mg/dL (74-106)
[2021-12-04 09:49] LABS: ALBUMIN 3.4 g/dl (3.4-5.0); CALCIUM 8.3 mg/dL (8.5-10.1)
[2021-12-04 09:51] LABS: SGOT/AST 39 U/L (15-37); SGPT/ALT 28 U/L (13-61)
[2021-12-04 09:53] LABS: BILIRUBIN,TOTAL 0.6 mg/dL (0.2-1); TOT PROT 6.4 g/dl (6.4-8.2)
[2021-12-04 09:54] LABS: ALK PHOS 100 U/L (45-117)
[2021-12-04 09:56] LABS: BLOOD UREA NITROGEN 78.5 mg/dL (7-18); CREATININE 10.5 mg/dL (0.55-1.3)
[2021-12-04] MEDS: HEPARIN NA (PORCINE) 5,000 UNITS/ML 1ML VIAL SQ SCH ×2 (11:57→21:06)
[2021-12-04] MEDS: CARVEDILOL 25 MG TABLET (FP) PO SCH ×2 (11:57→21:06)
[2021-12-04] MEDS: amLODIPine BESYLATE 10 MG TABLET (FP) PO SCH (11:57)
[2021-12-04] MEDS: SODIUM ZIRCONIUM CYCLOSILICATE (LOKELMA) 5 GM PACKET PO SCH ×2 (11:58→21:05)
[2021-12-04] MEDS: ACETAMINOPHEN 325 MG TABLET (FP) PO PRN (13:48)
[2021-12-04] MEDS: AMINO ACIDS 4.25%/D5W 1,000 ML IV SCH ×2 (17:40→21:05)
[2021-12-04] MEDS ORDERED: DEXTROSE 5%-WATER - 50 ML IVPB ONE (20:38)
[2021-12-04] MEDS ORDERED: PIPERACILLIN/TAZOBACTAM 2.25 GM VIAL IVPB ONE (20:38)
[2021-12-04] MEDS ORDERED: PIPERACILLIN/TAZOB 2.25 GM 2.25 GM in DEXTROSE 5%-WATER - 50 ML IVPB SCH (21:00)
[2021-12-04] MEDS: MIRTAZAPINE 15 MG TABLET (FP) PO SCH (21:05)
[2021-12-04] MEDS: ATORVASTATIN CA 10 MG TABLET (FP) PO SCH (21:05)
[2021-12-04] MEDS: PIPERACILLIN/TAZOB 2.25 GM 2.25 GM in DEXTROSE 5%-WATER - 50 ML IVPB SCH (21:05)
[2021-12-05] MEDS: PIPERACILLIN/TAZOB 2.25 GM 2.25 GM in DEXTROSE 5%-WATER - 50 ML IVPB SCH ×2 (03:45→10:48)
[2021-12-05] MEDS ORDERED: PIPERACILLIN/TAZOBACTAM 2.25 GM VIAL IVPB ONE ×3 (03:48→11:34)
[2021-12-05] MEDS ORDERED: DEXTROSE 5%-WATER - 50 ML IVPB ONE ×3 (03:49→11:35)
[2021-12-05] MEDS: hydrALAZINE HCL 50 MG TABLET (FP) PO SCH ×3 (06:42→22:30)
[2021-12-05] MEDS: ARTIFICIAL TEARS (POLYVINYL ALCOHOL) OPTH DROPS OU SCH ×3 (06:42→22:30)
[2021-12-05] MEDS: SODIUM ZIRCONIUM CYCLOSILICATE (LOKELMA) 5 GM PACKET PO SCH ×2 (09:23→22:31)
[2021-12-05] MEDS ORDERED: VANCOMYCIN 1 GRAM (PRE-DOCKED) 1,000 MG/250 ML BAG IVPB ONE (10:45)
[2021-12-05] MEDS: LORazepam 2 MG/ML SDV VIAL IVPUSH SCH (10:47)
[2021-12-05] MEDS: HEPARIN NA (PORCINE) 5,000 UNITS/ML 1ML VIAL SQ SCH ×2 (10:48→22:30)
[2021-12-05] MEDS: CARVEDILOL 25 MG TABLET (FP) PO SCH ×2 (10:48→22:30)
[2021-12-05] MEDS: amLODIPine BESYLATE 10 MG TABLET (FP) PO SCH (10:49)
[2021-12-05] MEDS: AMINO ACIDS 4.25%/D5W 1,000 ML IV SCH (17:03)
[2021-12-05] MEDS: ATORVASTATIN CA 10 MG TABLET (FP) PO SCH (22:30)
[2021-12-05] MEDS: MIRTAZAPINE 15 MG TABLET (FP) PO SCH (22:31)
[2021-12-06] MEDS: ARTIFICIAL TEARS (POLYVINYL ALCOHOL) OPTH DROPS OU SCH ×3 (06:31→22:56)
[2021-12-06] MEDS: hydrALAZINE HCL 50 MG TABLET (FP) PO SCH ×3 (06:31→22:56)
[2021-12-06] MEDS: CARVEDILOL 25 MG TABLET (FP) PO SCH ×2 (10:00→22:56)
[2021-12-06] MEDS: amLODIPine BESYLATE 10 MG TABLET (FP) PO SCH (10:00)
[2021-12-06] MEDS: HEPARIN NA (PORCINE) 5,000 UNITS/ML 1ML VIAL SQ SCH ×2 (10:00→22:56)
[2021-12-06] MEDS: SODIUM ZIRCONIUM CYCLOSILICATE (LOKELMA) 5 GM PACKET PO SCH ×2 (10:00→22:57)
[2021-12-06] MEDS: AMINO ACIDS 4.25%/D5W 1,000 ML IV SCH (15:50)
[2021-12-06] MEDS: MIRTAZAPINE 15 MG TABLET (FP) PO SCH (22:57)
[2021-12-06] MEDS: ATORVASTATIN CA 10 MG TABLET (FP) PO SCH (22:57)
[2021-12-07] MEDS: hydrALAZINE HCL 50 MG TABLET (FP) PO SCH ×3 (06:17→21:53)
[2021-12-07] MEDS: ARTIFICIAL TEARS (POLYVINYL ALCOHOL) OPTH DROPS OU SCH ×3 (06:17→21:53)
[2021-12-07] MEDS: CARVEDILOL 25 MG TABLET (FP) PO SCH ×2 (11:06→21:53)
[2021-12-07] MEDS: SODIUM ZIRCONIUM CYCLOSILICATE (LOKELMA) 5 GM PACKET PO SCH ×2 (11:07→21:52)
[2021-12-07] MEDS: amLODIPine BESYLATE 10 MG TABLET (FP) PO SCH (11:07)
[2021-12-07] MEDS: HEPARIN NA (PORCINE) 5,000 UNITS/ML 1ML VIAL SQ SCH ×2 (11:07→21:53)
[2021-12-07] MEDS ORDERED: VANCOMYCIN 1 GRAM (PRE-DOCKED) 1,000 MG/250 ML BAG IVPB ONE (14:45)
[2021-12-07] MEDS: LORazepam 2 MG/ML SDV VIAL IVPUSH SCH (14:51)
[2021-12-07] MEDS: AMINO ACIDS 4.25%/D5W 1,000 ML IV SCH (16:53)
[2021-12-07] MEDS: MIRTAZAPINE 15 MG TABLET (FP) PO SCH (21:52)
[2021-12-07] MEDS: ATORVASTATIN CA 10 MG TABLET (FP) PO SCH (21:52)
[2021-12-08] MEDS: ARTIFICIAL TEARS (POLYVINYL ALCOHOL) OPTH DROPS OU SCH ×3 (06:45→22:26)
[2021-12-08] MEDS: hydrALAZINE HCL 50 MG TABLET (FP) PO SCH ×3 (06:48→22:26)
[2021-12-08] MEDS: SODIUM ZIRCONIUM CYCLOSILICATE (LOKELMA) 5 GM PACKET PO SCH ×2 (10:27→22:27)
[2021-12-08] MEDS: CARVEDILOL 25 MG TABLET (FP) PO SCH ×2 (10:43→22:26)
[2021-12-08] MEDS: amLODIPine BESYLATE 10 MG TABLET (FP) PO SCH (10:44)
[2021-12-08] MEDS: HEPARIN NA (PORCINE) 5,000 UNITS/ML 1ML VIAL SQ SCH ×2 (10:44→22:26)
[2021-12-08] MEDS ORDERED: ALPRAZolam 0.25 MG TABLET PO PRN (12:08)
[2021-12-08] MEDS ORDERED: SODIUM CHLORIDE 250 ML IV PRN (12:53)
[2021-12-08] MEDS ORDERED: VANCOMYCIN 1 GRAM (PRE-DOCKED) 1,000 MG/250 ML BAG IVPB ONE (13:00)
[2021-12-08] MEDS ORDERED: EPOETIN ALFA-EPBX 4,000 UNIT/ML VIAL IVPUSH ONE (13:00)
[2021-12-08] MEDS: AMINO ACIDS 4.25%/D5W 1,000 ML IV SCH (16:33)
[2021-12-08] MEDS: ATORVASTATIN CA 10 MG TABLET (FP) PO SCH (22:26)
[2021-12-08] MEDS: MIRTAZAPINE 15 MG TABLET (FP) PO SCH (22:27)
[2021-12-09] MEDS: ARTIFICIAL TEARS (POLYVINYL ALCOHOL) OPTH DROPS OU SCH ×3 (05:57→21:01)
[2021-12-09] MEDS: hydrALAZINE HCL 50 MG TABLET (FP) PO SCH ×3 (05:57→21:01)
[2021-12-09] MEDS: HEPARIN NA (PORCINE) 5,000 UNITS/ML 1ML VIAL SQ SCH ×2 (09:27→21:01)
[2021-12-09] MEDS: CARVEDILOL 25 MG TABLET (FP) PO SCH ×2 (09:27→21:01)
[2021-12-09] MEDS: SODIUM ZIRCONIUM CYCLOSILICATE (LOKELMA) 10 GM PACKET PO SCH ×2 (10:27→21:01)
[2021-12-09] MEDS: amLODIPine BESYLATE 10 MG TABLET (FP) PO SCH (11:27)
[2021-12-09] MEDS: AMINO ACIDS 4.25%/D5W 1,000 ML IV SCH (19:29)
[2021-12-09] MEDS: MIRTAZAPINE 15 MG TABLET (FP) PO SCH (21:00)
[2021-12-09] MEDS: VITAMIN B COMP W-C 1 EA TABLET (NEPHRO-VITE) PO SCH (21:01)
[2021-12-09] MEDS: ATORVASTATIN CA 10 MG TABLET (FP) PO SCH (21:01)
[2021-12-10] MEDS: hydrALAZINE HCL 50 MG TABLET (FP) PO SCH ×3 (05:43→21:28)
[2021-12-10] MEDS: ARTIFICIAL TEARS (POLYVINYL ALCOHOL) OPTH DROPS OU SCH ×3 (05:44→21:28)
[2021-12-10] MEDS: VITAMIN B COMP W-C 1 EA TABLET (NEPHRO-VITE) PO SCH (09:13)
[2021-12-10] MEDS: SODIUM ZIRCONIUM CYCLOSILICATE (LOKELMA) 10 GM PACKET PO SCH (09:13)
[2021-12-10] MEDS: HEPARIN NA (PORCINE) 5,000 UNITS/ML 1ML VIAL SQ SCH (09:13)
[2021-12-10] MEDS: amLODIPine BESYLATE 10 MG TABLET (FP) PO SCH (09:13)
[2021-12-10] MEDS: CARVEDILOL 25 MG TABLET (FP) PO SCH ×2 (09:13→21:28)
[2021-12-10] MEDS ORDERED: cloNIDine-TTS 0.1 MG/24 HRS PATCH.TDWK TD SCH (10:00)
[2021-12-10 11:40] LABS: HEMOGLOBIN 8.3 GM/dL (11.7-16.9); MCH 32.4 pg (25.7-33.7); MCHC 33.3 g/dl (32.0-35.9); MEAN CELL VOLUME 97.4 fl (80-96); MEAN PLT VOLUME 9.6 fl (7.5-11.1); PLATELET COUNT 145 10^3/uL (134-434); RBC 2.57 M/mm3 (4.00-5.60); WHITE BLOOD COUNT 3.9 K/mm3 (4.0-10.0)
[2021-12-10 11:45] LABS: CALCIUM 8.4 mg/dL (8.5-10.1)
[2021-12-10 11:48] LABS: CREATININE 6.9 mg/dL (0.55-1.3)
[2021-12-10 11:51] LABS: BILIRUBIN,TOTAL 0.4 mg/dL (0.2-1); TOT PROT 5.8 g/dl (6.4-8.2)
[2021-12-10 11:53] LABS: ALBUMIN 2.7 g/dl (3.4-5.0)
[2021-12-10] MEDS ORDERED: EPOETIN ALFA-EPBX 4,000 UNIT/ML VIAL SQ ONE (12:00)
[2021-12-10] MEDS ORDERED: SODIUM CHLORIDE 250 ML IV PRN (12:00)
[2021-12-10] MEDS: MIRTAZAPINE 15 MG TABLET (FP) PO SCH (21:28)
[2021-12-10] MEDS: ATORVASTATIN CA 10 MG TABLET (FP) PO SCH (21:28)
[2021-12-11] MEDS: ARTIFICIAL TEARS (POLYVINYL ALCOHOL) OPTH DROPS OU SCH ×2 (05:41→13:35)
[2021-12-11] MEDS: hydrALAZINE HCL 50 MG TABLET (FP) PO SCH ×2 (05:41→13:34)
[2021-12-11] MEDS: amLODIPine BESYLATE 10 MG TABLET (FP) PO SCH (10:32)
[2021-12-11] MEDS: CARVEDILOL 25 MG TABLET (FP) PO SCH (10:32)
[2021-12-11] MEDS: VITAMIN B COMP W-C 1 EA TABLET (NEPHRO-VITE) PO SCH (10:32)
[2021-12-11 13:36] VITALS: BP 115/46; PULSE 89; TEMP 98.7
== END 2021-12-11 18:44 | DRG 291 ==
LOC: JER 15:55 → JERBED 20:32 → J4S 12-01 00:13
PROVIDERS: ADMIT Hospitalist; ATTEND Internal Medicine
PROC: 5A1D70Z Performance of Urinary Filtration, Intermittent, Less than 6 Hours Per Day (ICD-10-PCS; principal; 2021-11-29)
PROC: 5A1D70Z Performance of Urinary Filtration, Intermittent, Less than 6 Hours Per Day (ICD-10-PCS; 2021-12-01)
PROC: 5A1D70Z Performance of Urinary Filtration, Intermittent, Less than 6 Hours Per Day (ICD-10-PCS; 2021-12-02)
PROC: 5A1D70Z Performance of Urinary Filtration, Intermittent, Less than 6 Hours Per Day (ICD-10-PCS; 2021-12-04)
PROC: 5A1D70Z Performance of Urinary Filtration, Intermittent, Less than 6 Hours Per Day (ICD-10-PCS; 2021-12-08)
PROC: 5A1D70Z Performance of Urinary Filtration, Intermittent, Less than 6 Hours Per Day (ICD-10-PCS; 2021-12-10)
DX: I13.2 Hypertensive heart and chronic kidney disease with heart failure and with stage 5 chronic kidney disease, or end stage renal disease (principal); G93.41 Metabolic encephalopathy; N18.6 End stage renal disease; R78.81 Bacteremia; E78.5 Hyperlipidemia, unspecified; I50.32 Chronic diastolic (congestive) heart failure; D64.9 Anemia, unspecified; F03.90 Unspecified dementia, unspecified severity, without behavioral disturbance, psychotic disturbance, mood disturbance, and anxiety; D69.6 Thrombocytopenia, unspecified; I25.119 Atherosclerotic heart disease of native coronary artery with unspecified angina pectoris; K21.9 Gastro-esophageal reflux disease without esophagitis; E78.00 Pure hypercholesterolemia, unspecified; B95.62 Methicillin resistant Staphylococcus aureus infection as the cause of diseases classified elsewhere; E87.5 Hyperkalemia; E83.41 Hypermagnesemia; E11.22 Type 2 diabetes mellitus with diabetic chronic kidney disease; K57.90 Diverticulosis of intestine, part unspecified, without perforation or abscess without bleeding; R50.9 Fever, unspecified; I95.9 Hypotension, unspecified; E83.52 Hypercalcemia; E87.6 Hypokalemia; Z86.718 Personal history of other venous thrombosis and embolism; Z95.1 Presence of aortocoronary bypass graft; Z91.15 Patient's noncompliance with renal dialysis; Z99.2 Dependence on renal dialysis
CPT/HCPCS: 36415; 70450-TC; 71045-TC-FY; 80048; 80053; 80061; 82550; 82553; 82962; 83036; 83735; 83880; 83930; 84100; 84443; 84484; 85025; 85027; 85610; 85730; 86803; 86850; 86900; 86901; 87040; 87186; 87340; 93005; 93010; 93306-TC; 99285-25; C9803; G0480; J1644; Q5106; U0003; U0005

== ENCOUNTER 2022-02-27 19:22 | Inpatient (IN) | payer OTHER ==
[2022-02-27] MEDS ORDERED: VANCOMYCIN 1 GM in D5W (PRE-DOCKED) 1,000 MG/250 ML IVPB ONE (21:40)
[2022-02-27] MEDS ORDERED: VANCOMYCIN 1 GRAM (PRE-DOCKED) 1,000 MG/250 ML BAG IVPB ONE (21:59)
[2022-02-27 22:40] LABS: BASO % 0.7 % (0-2.0); HEMATOCRIT 27.5 % (35.4-49); HEMOGLOBIN 9.3 GM/dL (11.7-16.9); LYMPH % 18.4 % (8-40); MCH 32.5 pg (25.7-33.7); MCHC 33.8 g/dl (32.0-35.9); MEAN CELL VOLUME 96.1 fl (80-96); MEAN PLT VOLUME 8.9 fl (7.5-11.1); MONO % 13.4 % (3.8-10.2); NEUT % 65.5 % (42.8-82.8); PLATELET COUNT 163 10^3/uL (134-434); RBC 2.87 M/mm3 (4.00-5.60); RDW 16.1 % (11.9-15.9); WHITE BLOOD COUNT 4.5 K/mm3 (4.0-10.0)
[2022-02-27 23:00] LABS: CALCIUM 9.3 mg/dL (8.5-10.1)
[2022-02-27 23:01] LABS: ALBUMIN 2.8 g/dl (3.4-5.0); BLOOD UREA NITROGEN 41.3 mg/dL (7-18)
[2022-02-27 23:04] LABS: CREATININE 4.4 mg/dL (0.55-1.3)
[2022-02-27 23:05] LABS: BILIRUBIN,TOTAL 0.4 mg/dL (0.2-1); TOT PROT 7.1 g/dl (6.4-8.2)
[2022-02-28] MEDS: CARVEDILOL 25 MG TABLET (FP) PO SCH ×2 (09:42→22:47)
[2022-02-28] MEDS ORDERED: amLODIPine BESYLATE 10 MG TABLET (FP) PO SCH (10:00)
[2022-02-28] MEDS: HEPARIN NA (PORCINE) 5,000 UNITS/ML 1ML VIAL SQ SCH ×2 (10:35→22:47)
[2022-02-28] MEDS: VITAMIN B COMP W-C 1 EA TABLET (NEPHRO-VITE) PO SCH (10:35)
[2022-02-28] MEDS: FOLIC ACID 1 MG TABLET (FP) PO SCH (10:36)
[2022-02-28] MEDS ORDERED: hydrALAZINE HCL 50 MG TABLET (FP) PO SCH (14:00)
[2022-02-28] MEDS ORDERED: SODIUM CHLORIDE 250 ML IV PRN (14:05)
[2022-02-28] MEDS ORDERED: SODIUM CHLORIDE 500 ML IV STA (14:11)
[2022-02-28] MEDS: CALCIUM ACETATE 667 MG CAPSULE (FP) PO SCH ×2 (14:46→18:14)
[2022-02-28] MEDS: hydrALAZINE HCL 50 MG TABLET (FP) PO SCH ×2 (14:46→22:47)
[2022-02-28] MEDS: ALBUMIN HUMAN 25% 12.5 GM/50 ML VIAL IV SCH ×3 (15:00→17:01)
[2022-02-28] MEDS: DAPTOMYCIN 450 MG in SODIUM CHLORIDE 50 ML IVPB SCH (18:14)
[2022-02-28] MEDS: AMINO ACIDS 4.25%/D5W 1,000 ML IV SCH (18:14)
[2022-02-28] MEDS ORDERED: ATORVASTATIN CA 10 MG TABLET (FP) PO SCH (22:00)
[2022-02-28] MEDS ORDERED: MIRTAZAPINE 15 MG TABLET (FP) PO SCH (22:00)
[2022-02-28] MEDS ORDERED: ARTIFICIAL TEARS (POLYVINYL ALCOHOL) OPTH DROPS OU PRN (22:00)
[2022-02-28] MEDS: MIRTAZAPINE 15 MG TABLET (FP) PO SCH (22:49)
[2022-03-01] MEDS: hydrALAZINE HCL 50 MG TABLET (FP) PO SCH ×3 (05:28→21:21)
[2022-03-01] MEDS: cloNIDine-TTS 0.2 MG/24 HOURS PATCH.TDWK TD SCH (09:56)
[2022-03-01] MEDS: VITAMIN B COMP W-C 1 EA TABLET (NEPHRO-VITE) PO SCH (09:56)
[2022-03-01] MEDS: amLODIPine BESYLATE 10 MG TABLET (FP) PO SCH (09:56)
[2022-03-01] MEDS: CALCIUM ACETATE 667 MG CAPSULE (FP) PO SCH ×3 (09:56→17:23)
[2022-03-01] MEDS: FOLIC ACID 1 MG TABLET (FP) PO SCH (09:56)
[2022-03-01] MEDS: CARVEDILOL 25 MG TABLET (FP) PO SCH ×2 (09:56→21:21)
[2022-03-01] MEDS: HEPARIN NA (PORCINE) 5,000 UNITS/ML 1ML VIAL SQ SCH ×2 (09:56→21:21)
[2022-03-01] MEDS: AMINO ACIDS 4.25%/D5W 1,000 ML IV SCH (17:23)
[2022-03-01] MEDS: MIRTAZAPINE 15 MG TABLET (FP) PO SCH (21:21)
[2022-03-02] MEDS: hydrALAZINE HCL 50 MG TABLET (FP) PO SCH (06:31)
[2022-03-02] MEDS: FOLIC ACID 1 MG TABLET (FP) PO SCH (09:00)
[2022-03-02] MEDS: VITAMIN B COMP W-C 1 EA TABLET (NEPHRO-VITE) PO SCH (09:00)
[2022-03-02] MEDS: HEPARIN NA (PORCINE) 5,000 UNITS/ML 1ML VIAL SQ SCH ×2 (09:00→22:50)
[2022-03-02] MEDS: amLODIPine BESYLATE 10 MG TABLET (FP) PO SCH (09:27)
[2022-03-02] MEDS: CARVEDILOL 25 MG TABLET (FP) PO SCH (09:27)
[2022-03-02] MEDS: CALCIUM ACETATE 667 MG CAPSULE (FP) PO SCH ×3 (09:27→17:10)
[2022-03-02] MEDS: AMINO ACIDS 4.25%/D5W 1,000 ML IV SCH (15:41)
[2022-03-02] MEDS: DAPTOMYCIN 450 MG in SODIUM CHLORIDE 50 ML IVPB SCH (17:00)
[2022-03-02] MEDS ORDERED: INSULIN (NOVOLOG) ASPART 100 UNITS/ML 10ML VIAL ONE (18:11)
[2022-03-02] MEDS ORDERED: INSULIN (LEVEMIR) 100 UNITS/ML UNITS SQ ONE (18:12)
[2022-03-02] MEDS: MIRTAZAPINE 15 MG TABLET (FP) PO SCH (22:51)
[2022-03-03] MEDS: CALCIUM ACETATE 667 MG CAPSULE (FP) PO SCH ×4 (08:57→17:34)
[2022-03-03] MEDS: VITAMIN B COMP W-C 1 EA TABLET (NEPHRO-VITE) PO SCH (09:03)
[2022-03-03] MEDS: FOLIC ACID 1 MG TABLET (FP) PO SCH (09:03)
[2022-03-03] MEDS: HEPARIN NA (PORCINE) 5,000 UNITS/ML 1ML VIAL SQ SCH ×2 (09:03→21:58)
[2022-03-03] MEDS ORDERED: EPOETIN ALFA-EPBX 4,000 UNIT/ML VIAL IVPUSH ONE (10:00)
[2022-03-03] MEDS ORDERED: SODIUM CHLORIDE 250 ML IV PRN (10:00)
[2022-03-03] MEDS: AMINO ACIDS 4.25%/D5W 1,000 ML IV SCH ×2 (13:16→17:35)
[2022-03-03] MEDS: hydrALAZINE HCL 50 MG TABLET (FP) PO SCH ×2 (13:41→21:58)
[2022-03-03] MEDS: DAPTOMYCIN 450 MG in SODIUM CHLORIDE 50 ML IVPB SCH ×2 (18:04→19:19)
[2022-03-03] MEDS: MIRTAZAPINE 15 MG TABLET (FP) PO SCH (21:58)
[2022-03-03] MEDS: CARVEDILOL 25 MG TABLET (FP) PO SCH (21:58)
[2022-03-04] MEDS: hydrALAZINE HCL 50 MG TABLET (FP) PO SCH ×4 (06:56→21:04)
[2022-03-04] MEDS: CALCIUM ACETATE 667 MG CAPSULE (FP) PO SCH ×3 (09:34→17:17)
[2022-03-04] MEDS: FOLIC ACID 1 MG TABLET (FP) PO SCH (10:41)
[2022-03-04] MEDS: HEPARIN NA (PORCINE) 5,000 UNITS/ML 1ML VIAL SQ SCH ×2 (10:41→21:04)
[2022-03-04] MEDS: CARVEDILOL 25 MG TABLET (FP) PO SCH ×2 (10:41→21:04)
[2022-03-04] MEDS: VITAMIN B COMP W-C 1 EA TABLET (NEPHRO-VITE) PO SCH (10:42)
[2022-03-04] MEDS: amLODIPine BESYLATE 10 MG TABLET (FP) PO SCH (10:42)
[2022-03-04] MEDS: AMINO ACIDS 4.25%/D5W 1,000 ML IV SCH (17:15)
[2022-03-04] MEDS: MIRTAZAPINE 15 MG TABLET (FP) PO SCH (21:05)
[2022-03-05] MEDS: hydrALAZINE HCL 50 MG TABLET (FP) PO SCH ×4 (06:06→21:47)
[2022-03-05] MEDS ORDERED: SODIUM CHLORIDE 250 ML IV PRN (07:55)
[2022-03-05] MEDS ORDERED: EPOETIN ALFA-EPBX 4,000 UNIT/ML VIAL SQ ONE (08:00)
[2022-03-05] MEDS: CARVEDILOL 25 MG TABLET (FP) PO SCH ×2 (09:03→21:42)
[2022-03-05] MEDS: CALCIUM ACETATE 667 MG CAPSULE (FP) PO SCH ×3 (09:03→17:34)
[2022-03-05] MEDS: amLODIPine BESYLATE 10 MG TABLET (FP) PO SCH (09:04)
[2022-03-05] MEDS: VITAMIN B COMP W-C 1 EA TABLET (NEPHRO-VITE) PO SCH (09:04)
[2022-03-05] MEDS: HEPARIN NA (PORCINE) 5,000 UNITS/ML 1ML VIAL SQ SCH ×2 (09:04→21:42)
[2022-03-05] MEDS: FOLIC ACID 1 MG TABLET (FP) PO SCH (09:04)
[2022-03-05] MEDS: AMINO ACIDS 4.25%/D5W 1,000 ML IV SCH (16:13)
[2022-03-05] MEDS: DAPTOMYCIN 450 MG in SODIUM CHLORIDE 50 ML IVPB SCH (17:34)
[2022-03-05] MEDS: MIRTAZAPINE 15 MG TABLET (FP) PO SCH (21:42)
[2022-03-06] MEDS: hydrALAZINE HCL 50 MG TABLET (FP) PO SCH ×3 (06:11→22:29)
[2022-03-06 09:07] LABS: BASO % 0.5 % (0-2.0); EOS % 2.4 % (0-4.5); HEMATOCRIT 25.8 % (35.4-49); HEMOGLOBIN 8.6 GM/dL (11.7-16.9); MCH 32.4 pg (25.7-33.7); MCHC 33.2 g/dl (32.0-35.9); MEAN CELL VOLUME 97.5 fl (80-96); MEAN PLT VOLUME 8.3 fl (7.5-11.1); MONO % 14.9 % (3.8-10.2); NEUT % 58.2 % (42.8-82.8); PLATELET COUNT 233 10^3/uL (134-434); RBC 2.64 M/mm3 (4.00-5.60); RDW 16.4 % (11.9-15.9); WHITE BLOOD COUNT 4.1 K/mm3 (4.0-10.0)
[2022-03-06 10:00] LABS: BLOOD UREA NITROGEN 24.6 mg/dL (7-18); CALCIUM 8.9 mg/dL (8.5-10.1)
[2022-03-06 10:03] LABS: CREATININE 3.2 mg/dL (0.55-1.3)
[2022-03-06 10:05] LABS: BILIRUBIN,TOTAL 0.3 mg/dL (0.2-1); TOT PROT 6.3 g/dl (6.4-8.2)
[2022-03-06] MEDS: amLODIPine BESYLATE 10 MG TABLET (FP) PO SCH (10:07)
[2022-03-06] MEDS: FOLIC ACID 1 MG TABLET (FP) PO SCH (10:07)
[2022-03-06] MEDS: CALCIUM ACETATE 667 MG CAPSULE (FP) PO SCH ×3 (10:07→17:45)
[2022-03-06] MEDS: CARVEDILOL 25 MG TABLET (FP) PO SCH ×2 (10:07→22:29)
[2022-03-06] MEDS: VITAMIN B COMP W-C 1 EA TABLET (NEPHRO-VITE) PO SCH (10:07)
[2022-03-06] MEDS: HEPARIN NA (PORCINE) 5,000 UNITS/ML 1ML VIAL SQ SCH ×2 (10:08→22:30)
[2022-03-06] MEDS: AMINO ACIDS 4.25%/D5W 1,000 ML IV SCH (14:31)
[2022-03-06] MEDS: AMINO ACIDS/PROTEIN HYDROLYS 30 ML LIQUID.PKT PO SCH (17:45)
[2022-03-06] MEDS ORDERED: FAT EMULSION/OLIVE/SOY (CLINOLIPID) 250 ML EMULSION IV SCH (22:00)
[2022-03-06] MEDS: MIRTAZAPINE 15 MG TABLET (FP) PO SCH (22:30)
[2022-03-06] MEDS: FAT EMULSION/OLIVE/SOY/PHOSPHO 250 ML IV SCH (22:45)
[2022-03-07] MEDS: AMINO ACIDS 4.25%/D5W 1,000 ML IV SCH ×3 (02:29→14:23)
[2022-03-07] MEDS: hydrALAZINE HCL 50 MG TABLET (FP) PO SCH ×4 (05:50→22:18)
[2022-03-07] MEDS ORDERED: SODIUM CHLORIDE 250 ML IV PRN (10:47)
[2022-03-07] MEDS ORDERED: EPOETIN ALFA-EPBX 10,000 UNIT/ML VIAL IVPUSH ONE (11:00)
[2022-03-07] MEDS: VITAMIN B COMP W-C 1 EA TABLET (NEPHRO-VITE) PO SCH (14:13)
[2022-03-07] MEDS: CARVEDILOL 25 MG TABLET (FP) PO SCH ×3 (14:13→22:20)
[2022-03-07] MEDS: FOLIC ACID 1 MG TABLET (FP) PO SCH (14:14)
[2022-03-07] MEDS: amLODIPine BESYLATE 10 MG TABLET (FP) PO SCH ×2 (14:14→14:44)
[2022-03-07] MEDS: CALCIUM ACETATE 667 MG CAPSULE (FP) PO SCH ×3 (14:15→18:32)
[2022-03-07] MEDS: AMINO ACIDS/PROTEIN HYDROLYS 30 ML LIQUID.PKT PO SCH ×2 (14:15→17:17)
[2022-03-07] MEDS: DAPTOMYCIN IVPB SCH (17:17)
[2022-03-07] MEDS: SODIUM CHLORIDE IVPB SCH (17:17)
[2022-03-07] MEDS: FAT EMULSION/OLIVE/SOY/PHOSPHO 250 ML IV SCH (22:19)
[2022-03-07] MEDS: MIRTAZAPINE 15 MG TABLET (FP) PO SCH (22:20)
[2022-03-08] MEDS: AMINO ACIDS 4.25%/D5W 1,000 ML IV SCH ×2 (02:10→05:34)
[2022-03-08] MEDS: hydrALAZINE HCL 50 MG TABLET (FP) PO SCH ×3 (05:39→21:39)
[2022-03-08] MEDS: amLODIPine BESYLATE 10 MG TABLET (FP) PO SCH (09:16)
[2022-03-08] MEDS: AMINO ACIDS/PROTEIN HYDROLYS 30 ML LIQUID.PKT PO SCH ×2 (09:16→16:44)
[2022-03-08] MEDS: VITAMIN B COMP W-C 1 EA TABLET (NEPHRO-VITE) PO SCH (09:16)
[2022-03-08] MEDS: CALCIUM ACETATE 667 MG CAPSULE (FP) PO SCH ×3 (09:16→16:43)
[2022-03-08] MEDS: CARVEDILOL 25 MG TABLET (FP) PO SCH ×2 (09:16→21:39)
[2022-03-08] MEDS: FOLIC ACID 1 MG TABLET (FP) PO SCH (09:16)
[2022-03-08] MEDS: cloNIDine-TTS 0.2 MG/24 HOURS PATCH.TDWK TD SCH (09:18)
[2022-03-08] MEDS: MIRTAZAPINE 15 MG TABLET (FP) PO SCH (21:38)
[2022-03-09] MEDS: hydrALAZINE HCL 50 MG TABLET (FP) PO SCH ×3 (06:26→22:37)
[2022-03-09] MEDS: CALCIUM ACETATE 667 MG CAPSULE (FP) PO SCH ×3 (09:51→17:28)
[2022-03-09] MEDS: AMINO ACIDS/PROTEIN HYDROLYS 30 ML LIQUID.PKT PO SCH ×2 (09:51→17:28)
[2022-03-09] MEDS: CARVEDILOL 25 MG TABLET (FP) PO SCH ×2 (09:51→22:37)
[2022-03-09] MEDS: amLODIPine BESYLATE 10 MG TABLET (FP) PO SCH (09:52)
[2022-03-09] MEDS: FOLIC ACID 1 MG TABLET (FP) PO SCH (09:52)
[2022-03-09] MEDS: VITAMIN B COMP W-C 1 EA TABLET (NEPHRO-VITE) PO SCH (09:52)
[2022-03-09] MEDS: AMINO ACIDS 4.25%/D5W 1,000 ML IV SCH (11:00)
[2022-03-09] MEDS ORDERED: FAT EMULSIONS 20% 250 ML PREMIX INFUS.BAG IV SCH (22:00)
[2022-03-09] MEDS: MIRTAZAPINE 15 MG TABLET (FP) PO SCH (22:38)
[2022-03-09] MEDS: FAT EMULSION/OLIVE/SOY/PHOSPHO 250 ML IV SCH (22:38)
[2022-03-10] MEDS: AMINO ACIDS 4.25%/D5W 1,000 ML IV SCH ×3 (03:05→22:40)
[2022-03-10] MEDS: hydrALAZINE HCL 50 MG TABLET (FP) PO SCH ×3 (06:12→22:39)
[2022-03-10] MEDS ORDERED: SODIUM CHLORIDE 250 ML IV PRN (08:47)
[2022-03-10] MEDS ORDERED: EPOETIN ALFA-EPBX 10,000 UNIT/ML VIAL IVPUSH ONE (10:00)
[2022-03-10] MEDS: CALCIUM ACETATE 667 MG CAPSULE (FP) PO SCH ×4 (11:02→16:44)
[2022-03-10] MEDS: CARVEDILOL 25 MG TABLET (FP) PO SCH ×2 (11:03→22:40)
[2022-03-10] MEDS: VITAMIN B COMP W-C 1 EA TABLET (NEPHRO-VITE) PO SCH (11:03)
[2022-03-10] MEDS: FOLIC ACID 1 MG TABLET (FP) PO SCH (11:03)
[2022-03-10] MEDS: AMINO ACIDS/PROTEIN HYDROLYS 30 ML LIQUID.PKT PO SCH ×2 (11:03→16:41)
[2022-03-10] MEDS: amLODIPine BESYLATE 10 MG TABLET (FP) PO SCH (11:03)
[2022-03-10] MEDS: MIRTAZAPINE 15 MG TABLET (FP) PO SCH (22:40)
[2022-03-10] MEDS: FAT EMULSION/OLIVE/SOY/PHOSPHO 250 ML IV SCH (22:42)
[2022-03-11] MEDS: FAT EMULSION/OLIVE/SOY/PHOSPHO 250 ML IV SCH ×2 (03:57→23:48)
[2022-03-11] MEDS: hydrALAZINE HCL 50 MG TABLET (FP) PO SCH ×3 (06:41→23:48)
[2022-03-11] MEDS: AMINO ACIDS 4.25%/D5W 1,000 ML IV SCH ×2 (07:20→18:02)
[2022-03-11] MEDS: FOLIC ACID 1 MG TABLET (FP) PO SCH (09:14)
[2022-03-11] MEDS: CARVEDILOL 25 MG TABLET (FP) PO SCH ×2 (09:14→23:48)
[2022-03-11] MEDS: VITAMIN B COMP W-C 1 EA TABLET (NEPHRO-VITE) PO SCH (09:14)
[2022-03-11] MEDS: amLODIPine BESYLATE 10 MG TABLET (FP) PO SCH (09:14)
[2022-03-11] MEDS: CALCIUM ACETATE 667 MG CAPSULE (FP) PO SCH ×3 (09:14→18:02)
[2022-03-11] MEDS: AMINO ACIDS/PROTEIN HYDROLYS 30 ML LIQUID.PKT PO SCH ×2 (09:15→18:02)
[2022-03-11] MEDS: MIRTAZAPINE 15 MG TABLET (FP) PO SCH (23:48)
[2022-03-12] MEDS: hydrALAZINE HCL 50 MG TABLET (FP) PO SCH ×4 (00:08→21:11)
[2022-03-12] MEDS: CARVEDILOL 25 MG TABLET (FP) PO SCH ×3 (00:09→21:11)
[2022-03-12] MEDS: AMINO ACIDS 4.25%/D5W 1,000 ML IV SCH ×5 (06:36→23:10)
[2022-03-12] MEDS ORDERED: SODIUM CHLORIDE 250 ML IV PRN (08:32)
[2022-03-12] MEDS: VITAMIN B COMP W-C 1 EA TABLET (NEPHRO-VITE) PO SCH (09:39)
[2022-03-12] MEDS: amLODIPine BESYLATE 10 MG TABLET (FP) PO SCH (09:39)
[2022-03-12] MEDS: EPOETIN ALFA-EPBX 10,000 UNIT/ML VIAL IVPUSH ONE ×2 (09:39→10:46)
[2022-03-12] MEDS: AMINO ACIDS/PROTEIN HYDROLYS 30 ML LIQUID.PKT PO SCH ×2 (09:39→17:06)
[2022-03-12] MEDS: FOLIC ACID 1 MG TABLET (FP) PO SCH (09:39)
[2022-03-12] MEDS: CALCIUM ACETATE 667 MG CAPSULE (FP) PO SCH ×3 (09:39→17:06)
[2022-03-12] MEDS: FAT EMULSION/OLIVE/SOY/PHOSPHO 250 ML IV SCH (21:11)
[2022-03-12] MEDS: MIRTAZAPINE 15 MG TABLET (FP) PO SCH (21:11)
[2022-03-13] MEDS: hydrALAZINE HCL 50 MG TABLET (FP) PO SCH ×3 (06:10→21:38)
[2022-03-13] MEDS: AMINO ACIDS/PROTEIN HYDROLYS 30 ML LIQUID.PKT PO SCH ×2 (09:56→16:43)
[2022-03-13] MEDS: amLODIPine BESYLATE 10 MG TABLET (FP) PO SCH (09:56)
[2022-03-13] MEDS: FOLIC ACID 1 MG TABLET (FP) PO SCH (09:56)
[2022-03-13] MEDS: VITAMIN B COMP W-C 1 EA TABLET (NEPHRO-VITE) PO SCH (09:56)
[2022-03-13] MEDS: CALCIUM ACETATE 667 MG CAPSULE (FP) PO SCH ×4 (09:56→16:43)
[2022-03-13] MEDS: CARVEDILOL 25 MG TABLET (FP) PO SCH ×2 (12:16→21:38)
[2022-03-13] MEDS: AMINO ACIDS 4.25%/D5W 1,000 ML IV SCH ×2 (12:16→21:39)
[2022-03-13] MEDS ORDERED: SODIUM CHLORIDE 250 ML IV PRN (13:24)
[2022-03-13 13:43] VITALS: BMI 21.2
[2022-03-13] MEDS: MIRTAZAPINE 15 MG TABLET (FP) PO SCH (21:38)
[2022-03-13] MEDS: FAT EMULSION/OLIVE/SOY/PHOSPHO 250 ML IV SCH (21:39)
[2022-03-14] MEDS: AMINO ACIDS 4.25%/D5W 1,000 ML IV SCH ×4 (00:51→23:17)
[2022-03-14] MEDS: hydrALAZINE HCL 50 MG TABLET (FP) PO SCH ×3 (07:05→21:22)
[2022-03-14] MEDS ORDERED: EPOETIN ALFA-EPBX 10,000 UNIT/ML VIAL IVPUSH ONE (09:15)
[2022-03-14] MEDS: AMINO ACIDS/PROTEIN HYDROLYS 30 ML LIQUID.PKT PO SCH ×2 (09:16→16:51)
[2022-03-14] MEDS: CALCIUM ACETATE 667 MG CAPSULE (FP) PO SCH ×3 (09:16→16:51)
[2022-03-14] MEDS: CARVEDILOL 25 MG TABLET (FP) PO SCH ×2 (09:18→21:23)
[2022-03-14] MEDS: FOLIC ACID 1 MG TABLET (FP) PO SCH (09:27)
[2022-03-14] MEDS: VITAMIN B COMP W-C 1 EA TABLET (NEPHRO-VITE) PO SCH (09:27)
[2022-03-14] MEDS: amLODIPine BESYLATE 10 MG TABLET (FP) PO SCH (09:28)
[2022-03-14 09:59] LABS: HEMOGLOBIN 8.4 GM/dL (11.7-16.9); MCH 32.7 pg (25.7-33.7); MCHC 33.7 g/dl (32.0-35.9); MEAN PLT VOLUME 8.9 fl (7.5-11.1); PLATELET COUNT 180 10^3/uL (134-434); RBC 2.57 M/mm3 (4.00-5.60); RDW 17.9 % (11.9-15.9); WHITE BLOOD COUNT 5.1 K/mm3 (4.0-10.0)
[2022-03-14 10:23] LABS: CALCIUM 8.8 mg/dL (8.5-10.1)
[2022-03-14 10:27] LABS: CREATININE 4.1 mg/dL (0.55-1.3)
[2022-03-14 11:00] LABS: BLOOD UREA NITROGEN 76.6 mg/dL (7-18)
[2022-03-14] MEDS ORDERED: ACETAMINOPHEN 1000 MG/100 ML BAG IVPB PRN (12:17)
[2022-03-14] MEDS ORDERED: PIPERACILLIN/TAZOBACTAM 2.25 GM VIAL IVPB ONE ×2 (12:36→17:22)
[2022-03-14] MEDS ORDERED: DEXTROSE 5%-WATER - 50 ML IVPB ONE ×2 (12:37→17:22)
[2022-03-14] MEDS: PIPERACILLIN/TAZOB 2.25 GM 2.25 GM in DEXTROSE 5%-WATER - 50 ML IVPB SCH ×2 (12:39→18:00)
[2022-03-14] MEDS: DAPTOMYCIN IVPB SCH ×2 (15:00→17:30)
[2022-03-14] MEDS: SODIUM CHLORIDE IVPB SCH ×2 (15:00→17:30)
[2022-03-14] MEDS: FAT EMULSION/OLIVE/SOY/PHOSPHO 250 ML IV SCH (21:18)
[2022-03-14] MEDS: MIRTAZAPINE 15 MG TABLET (FP) PO SCH (21:23)
[2022-03-15] MEDS ORDERED: PIPERACILLIN/TAZOBACTAM 2.25 GM VIAL IVPB ONE ×2 (01:06→10:42)
[2022-03-15] MEDS ORDERED: DEXTROSE 5%-WATER - 50 ML IVPB ONE ×2 (01:06→10:43)
[2022-03-15] MEDS: PIPERACILLIN/TAZOB 2.25 GM 2.25 GM in DEXTROSE 5%-WATER - 50 ML IVPB SCH ×4 (01:33→17:50)
[2022-03-15] MEDS: AMINO ACIDS 4.25%/D5W 1,000 ML IV SCH ×3 (04:21→23:07)
[2022-03-15] MEDS: hydrALAZINE HCL 50 MG TABLET (FP) PO SCH ×3 (06:16→22:15)
[2022-03-15] MEDS: CALCIUM ACETATE 667 MG CAPSULE (FP) PO SCH ×3 (09:08→17:15)
[2022-03-15] MEDS: AMINO ACIDS/PROTEIN HYDROLYS 30 ML LIQUID.PKT PO SCH ×2 (09:08→17:15)
[2022-03-15 09:09] LABS: BASO % 0.5 % (0-2.0); EOS % 1.7 % (0-4.5); HEMOGLOBIN 8.3 GM/dL (11.7-16.9); LYMPH % 13.9 % (8-40); MCH 32.6 pg (25.7-33.7); MCHC 33.2 g/dl (32.0-35.9); MEAN CELL VOLUME 98.1 fl (80-96); MEAN PLT VOLUME 9.3 fl (7.5-11.1); MONO % 12.2 % (3.8-10.2); NEUT % 71.7 % (42.8-82.8); PLATELET COUNT 172 10^3/uL (134-434); RBC 2.54 M/mm3 (4.00-5.60); RDW 17.6 % (11.9-15.9); WHITE BLOOD COUNT 5.1 K/mm3 (4.0-10.0)
[2022-03-15 09:34] LABS: CALCIUM 8.7 mg/dL (8.5-10.1)
[2022-03-15 09:38] LABS: CREATININE 3.1 mg/dL (0.55-1.3)
[2022-03-15 09:47] LABS: BLOOD UREA NITROGEN 47.5 mg/dL (7-18)
[2022-03-15] MEDS: amLODIPine BESYLATE 10 MG TABLET (FP) PO SCH ×2 (11:02→11:16)
[2022-03-15] MEDS: VITAMIN B COMP W-C 1 EA TABLET (NEPHRO-VITE) PO SCH ×2 (11:03→11:16)
[2022-03-15] MEDS: FOLIC ACID 1 MG TABLET (FP) PO SCH ×2 (11:03→11:16)
[2022-03-15] MEDS: CARVEDILOL 25 MG TABLET (FP) PO SCH ×3 (11:03→22:15)
[2022-03-15] MEDS: cloNIDine-TTS 0.2 MG/24 HOURS PATCH.TDWK TD SCH (11:15)
[2022-03-15] MEDS: FAT EMULSION/OLIVE/SOY/PHOSPHO 250 ML IV SCH (22:13)
[2022-03-15] MEDS: HEPARIN NA (PORCINE) 5,000 UNITS/ML 1ML VIAL SQ SCH (22:14)
[2022-03-15] MEDS: MIRTAZAPINE 15 MG TABLET (FP) PO SCH (22:15)
[2022-03-16] MEDS: AMINO ACIDS 4.25%/D5W 1,000 ML IV SCH (00:24)
[2022-03-16] MEDS ORDERED: PIPERACILLIN/TAZOBACTAM 2.25 GM VIAL IVPB ONE (01:17)
[2022-03-16] MEDS ORDERED: DEXTROSE 5%-WATER - 50 ML IVPB ONE (01:18)
[2022-03-16] MEDS: PIPERACILLIN/TAZOB 2.25 GM 2.25 GM in DEXTROSE 5%-WATER - 50 ML IVPB SCH ×2 (01:49→12:47)
[2022-03-16] MEDS: hydrALAZINE HCL 50 MG TABLET (FP) PO SCH ×3 (05:48→22:19)
[2022-03-16] MEDS: CALCIUM ACETATE 667 MG CAPSULE (FP) PO SCH ×3 (12:45→18:21)
[2022-03-16] MEDS: FOLIC ACID 1 MG TABLET (FP) PO SCH (12:46)
[2022-03-16] MEDS: CARVEDILOL 25 MG TABLET (FP) PO SCH ×2 (12:46→22:19)
[2022-03-16] MEDS: AMINO ACIDS/PROTEIN HYDROLYS 30 ML LIQUID.PKT PO SCH ×2 (12:46→18:21)
[2022-03-16] MEDS: HEPARIN NA (PORCINE) 5,000 UNITS/ML 1ML VIAL SQ SCH ×2 (12:46→22:20)
[2022-03-16] MEDS: VITAMIN B COMP W-C 1 EA TABLET (NEPHRO-VITE) PO SCH (12:47)
[2022-03-16] MEDS: amLODIPine BESYLATE 10 MG TABLET (FP) PO SCH (12:47)
[2022-03-16 13:12] LABS: HEMATOCRIT 24.5 % (35.4-49); HEMOGLOBIN 8.3 GM/dL (11.7-16.9); MCH 32.4 pg (25.7-33.7); MCHC 33.7 g/dl (32.0-35.9); MEAN CELL VOLUME 96.3 fl (80-96); MEAN PLT VOLUME 9.2 fl (7.5-11.1); PLATELET COUNT 165 10^3/uL (134-434); RBC 2.54 M/mm3 (4.00-5.60); RDW 17.6 % (11.9-15.9); WHITE BLOOD COUNT 5.3 K/mm3 (4.0-10.0)
[2022-03-16] MEDS ORDERED: SODIUM CHLORIDE 250 ML IV PRN (13:56)
[2022-03-16 13:57] LABS: CALCIUM 8.6 mg/dL (8.5-10.1)
[2022-03-16 13:58] LABS: BLOOD UREA NITROGEN 72.5 mg/dL (7-18)
[2022-03-16 14:01] LABS: PHOSPHOROUS 1.5 mg/dL (2.5-4.9)
[2022-03-16 14:04] LABS: CREATININE 4.3 mg/dL (0.55-1.3)
[2022-03-16] MEDS: FAT EMULSION/OLIVE/SOY/PHOSPHO 250 ML IV SCH (22:19)
[2022-03-16] MEDS: MIRTAZAPINE 15 MG TABLET (FP) PO SCH (22:21)
[2022-03-17] MEDS: hydrALAZINE HCL 50 MG TABLET (FP) PO SCH ×3 (06:45→22:40)
[2022-03-17] MEDS: AMINO ACIDS/PROTEIN HYDROLYS 30 ML LIQUID.PKT PO SCH ×2 (10:54→18:42)
[2022-03-17] MEDS: amLODIPine BESYLATE 10 MG TABLET (FP) PO SCH (10:54)
[2022-03-17] MEDS: CALCIUM ACETATE 667 MG CAPSULE (FP) PO SCH ×3 (10:54→18:42)
[2022-03-17] MEDS: VITAMIN B COMP W-C 1 EA TABLET (NEPHRO-VITE) PO SCH (10:54)
[2022-03-17] MEDS: HEPARIN NA (PORCINE) 5,000 UNITS/ML 1ML VIAL SQ SCH ×2 (10:54→22:42)
[2022-03-17] MEDS: CARVEDILOL 25 MG TABLET (FP) PO SCH ×2 (10:54→22:42)
[2022-03-17] MEDS: FOLIC ACID 1 MG TABLET (FP) PO SCH (10:55)
[2022-03-17] MEDS ORDERED: DAPTOMYCIN 450 MG in SODIUM CHLORIDE 50 ML IVPB SCH (18:00)
[2022-03-17] MEDS ORDERED: SODIUM CHLORIDE 250 ML IV PRN (18:41)
[2022-03-17] MEDS: MIRTAZAPINE 15 MG TABLET (FP) PO SCH (22:39)
[2022-03-17] MEDS: FAT EMULSION/OLIVE/SOY/PHOSPHO 250 ML IV SCH (22:42)
[2022-03-17] MEDS: ACETAMINOPHEN 325 MG TABLET (FP) PO PRN (22:46)
[2022-03-18] MEDS: hydrALAZINE HCL 50 MG TABLET (FP) PO SCH ×3 (05:49→22:10)
[2022-03-18] MEDS ORDERED: EPOETIN ALFA-EPBX 10,000 UNIT/ML VIAL IVPUSH ONE (11:00)
[2022-03-18] MEDS: CARVEDILOL 25 MG TABLET (FP) PO SCH ×2 (14:36→22:10)
[2022-03-18] MEDS: AMINO ACIDS/PROTEIN HYDROLYS 30 ML LIQUID.PKT PO SCH ×2 (14:36→18:18)
[2022-03-18] MEDS: CALCIUM ACETATE 667 MG CAPSULE (FP) PO SCH ×2 (14:36→18:18)
[2022-03-18] MEDS: amLODIPine BESYLATE 10 MG TABLET (FP) PO SCH (14:37)
[2022-03-18] MEDS: VITAMIN B COMP W-C 1 EA TABLET (NEPHRO-VITE) PO SCH (14:37)
[2022-03-18] MEDS: FOLIC ACID 1 MG TABLET (FP) PO SCH (14:37)
[2022-03-18] MEDS: CEFTAROLINE FOSAMIL ACETATE 200 MG in DEXTROSE 5%-WATER - 100 ML IVPB SCH ×2 (14:38→18:18)
[2022-03-18] MEDS: HEPARIN NA (PORCINE) 5,000 UNITS/ML 1ML VIAL SQ SCH ×2 (14:40→22:10)
[2022-03-18] MEDS: ACETAMINOPHEN 325 MG TABLET (FP) PO PRN (14:52)
[2022-03-18] MEDS ORDERED: VANCOMYCIN/WATER FOR INJ (PEG) 1,000 MG/200 ML BAG IVPB ONE (16:45)
[2022-03-18] MEDS ORDERED: DAPTOMYCIN 450 MG in SODIUM CHLORIDE 50 ML IVPB SCH (18:00)
[2022-03-18] MEDS: MIRTAZAPINE 15 MG TABLET (FP) PO SCH (22:10)
[2022-03-19] MEDS: CEFTAROLINE FOSAMIL ACETATE 200 MG in DEXTROSE 5%-WATER - 100 ML IVPB SCH ×4 (01:37→18:35)
[2022-03-19] MEDS ORDERED: ACETAMINOPHEN 1000 MG/100 ML BAG IVPB ONE (01:45)
[2022-03-19] MEDS: hydrALAZINE HCL 50 MG TABLET (FP) PO SCH ×3 (05:37→23:24)
[2022-03-19] MEDS: CALCIUM ACETATE 667 MG CAPSULE (FP) PO SCH ×3 (11:24→16:58)
[2022-03-19] MEDS: amLODIPine BESYLATE 10 MG TABLET (FP) PO SCH (11:25)
[2022-03-19] MEDS: FOLIC ACID 1 MG TABLET (FP) PO SCH (11:25)
[2022-03-19] MEDS: CARVEDILOL 25 MG TABLET (FP) PO SCH ×2 (11:25→23:24)
[2022-03-19] MEDS: AMINO ACIDS/PROTEIN HYDROLYS 30 ML LIQUID.PKT PO SCH ×2 (11:25→16:58)
[2022-03-19] MEDS: VITAMIN B COMP W-C 1 EA TABLET (NEPHRO-VITE) PO SCH (11:25)
[2022-03-19] MEDS: HEPARIN NA (PORCINE) 5,000 UNITS/ML 1ML VIAL SQ SCH (11:26)
[2022-03-19 13:56] LABS: HEMATOCRIT 27.4 % (35.4-49); HEMOGLOBIN 8.9 GM/dL (11.7-16.9); MCH 31.8 pg (25.7-33.7); MCHC 32.6 g/dl (32.0-35.9); MEAN CELL VOLUME 97.6 fl (80-96); MEAN PLT VOLUME 9.4 fl (7.5-11.1); PLATELET COUNT 176 10^3/uL (134-434); RDW 17.8 % (11.9-15.9); WHITE BLOOD COUNT 3.7 K/mm3 (4.0-10.0)
[2022-03-19 14:13] LABS: CHLORIDE 100 mmol/L (98-107); SODIUM 141 mmol/L (136-145)
[2022-03-19 14:15] LABS: ALBUMIN 3.2 g/dl (3.4-5.0); CALCIUM 8.8 mg/dL (8.5-10.1); CO2 33 mmol/L (21-32); GLUCOSE,RANDOM 188 mg/dL (74-106)
[2022-03-19 14:18] LABS: SGOT/AST 23 U/L (15-37); SGPT/ALT 24 U/L (13-61)
[2022-03-19 14:20] LABS: BILIRUBIN,TOTAL 0.5 mg/dL (0.2-1); TOT PROT 6.7 g/dl (6.4-8.2)
[2022-03-19 14:21] LABS: ALK PHOS 112 U/L (45-117)
[2022-03-19 14:25] LABS: ANION GAP 8 MMOL/L (8-16); CREATININE 3.3 mg/dL (0.55-1.3)
[2022-03-19] MEDS ORDERED: POTASSIUM CHLORIDE TABS 20 MEQ TABLET.ER (FP) PO ONE (15:27)
[2022-03-19 16:43] LABS: ANISOCYTOSIS 3+; MACROCYTOSIS 2+; TARGET CELLS 1+
[2022-03-19] MEDS: DAPTOMYCIN IVPB SCH (16:57)
[2022-03-19] MEDS: SODIUM CHLORIDE IVPB SCH (16:57)
[2022-03-19] MEDS: ACETAMINOPHEN 325 MG TABLET (FP) PO PRN (17:01)
[2022-03-19] MEDS: KCL 10 MEQ IVPB 10 MEQ/100 ML INFUS.BAG IVPB SCH ×2 (20:05→22:26)
[2022-03-19] MEDS: MIRTAZAPINE 15 MG TABLET (FP) PO SCH (23:24)
[2022-03-20] MEDS: CEFTAROLINE FOSAMIL ACETATE 200 MG in DEXTROSE 5%-WATER - 100 ML IVPB SCH ×3 (02:34→20:55)
[2022-03-20] MEDS: hydrALAZINE HCL 50 MG TABLET (FP) PO SCH ×3 (06:19→22:35)
[2022-03-20] MEDS: CALCIUM ACETATE 667 MG CAPSULE (FP) PO SCH ×3 (09:05→16:57)
[2022-03-20] MEDS: FOLIC ACID 1 MG TABLET (FP) PO SCH (09:06)
[2022-03-20] MEDS: VITAMIN B COMP W-C 1 EA TABLET (NEPHRO-VITE) PO SCH (09:06)
[2022-03-20] MEDS: AMINO ACIDS/PROTEIN HYDROLYS 30 ML LIQUID.PKT PO SCH ×2 (09:06→16:57)
[2022-03-20] MEDS: CARVEDILOL 25 MG TABLET (FP) PO SCH ×2 (09:06→22:34)
[2022-03-20] MEDS: amLODIPine BESYLATE 10 MG TABLET (FP) PO SCH (09:07)
[2022-03-20] MEDS ORDERED: SODIUM CHLORIDE 250 ML IV PRN (11:37)
[2022-03-20] MEDS ORDERED: EPOETIN ALFA-EPBX 10,000 UNIT/ML VIAL SQ ONE (11:45)
[2022-03-20 16:08] LABS: HEMATOCRIT 25.3 % (35.4-49); HEMOGLOBIN 8.4 GM/dL (11.7-16.9); MCH 31.7 pg (25.7-33.7); MEAN CELL VOLUME 95.9 fl (80-96); MEAN PLT VOLUME 8.8 fl (7.5-11.1); PLATELET COUNT 185 10^3/uL (134-434); RBC 2.64 M/mm3 (4.00-5.60); RDW 17.8 % (11.9-15.9); WHITE BLOOD COUNT 2.4 K/mm3 (4.0-10.0)
[2022-03-20 17:02] LABS: ALBUMIN 2.8 g/dl (3.4-5.0); BLOOD UREA NITROGEN 41.1 mg/dL (7-18); CALCIUM 8.7 mg/dL (8.5-10.1)
[2022-03-20 17:05] LABS: CREATININE 4.8 mg/dL (0.55-1.3)
[2022-03-20 17:07] LABS: BILIRUBIN,TOTAL 0.4 mg/dL (0.2-1); TOT PROT 6.1 g/dl (6.4-8.2)
[2022-03-20] MEDS ORDERED: DAPTOMYCIN IVPB SCH (18:00)
[2022-03-20] MEDS ORDERED: SODIUM CHLORIDE IVPB SCH (18:00)
[2022-03-20] MEDS: MIRTAZAPINE 15 MG TABLET (FP) PO SCH (22:35)
[2022-03-21] MEDS: CEFTAROLINE FOSAMIL ACETATE 200 MG in DEXTROSE 5%-WATER - 100 ML IVPB SCH ×3 (03:38→17:21)
[2022-03-21] MEDS: hydrALAZINE HCL 50 MG TABLET (FP) PO SCH ×3 (06:12→21:18)
[2022-03-21] MEDS: FOLIC ACID 1 MG TABLET (FP) PO SCH (10:06)
[2022-03-21] MEDS: AMINO ACIDS/PROTEIN HYDROLYS 30 ML LIQUID.PKT PO SCH ×2 (10:06→17:22)
[2022-03-21] MEDS: VITAMIN B COMP W-C 1 EA TABLET (NEPHRO-VITE) PO SCH (10:06)
[2022-03-21] MEDS: CALCIUM ACETATE 667 MG CAPSULE (FP) PO SCH ×3 (10:06→17:21)
[2022-03-21] MEDS: amLODIPine BESYLATE 10 MG TABLET (FP) PO SCH (10:07)
[2022-03-21] MEDS: CARVEDILOL 25 MG TABLET (FP) PO SCH ×2 (10:07→21:18)
[2022-03-21] MEDS: SODIUM CHLORIDE IVPB SCH (18:31)
[2022-03-21] MEDS: DAPTOMYCIN IVPB SCH (18:31)
[2022-03-21] MEDS: MIRTAZAPINE 15 MG TABLET (FP) PO SCH (21:18)
[2022-03-22] MEDS: CEFTAROLINE FOSAMIL ACETATE 200 MG in DEXTROSE 5%-WATER - 100 ML IVPB SCH ×3 (01:12→19:35)
[2022-03-22] MEDS: hydrALAZINE HCL 50 MG TABLET (FP) PO SCH ×3 (05:40→21:17)
[2022-03-22] MEDS: AMINO ACIDS/PROTEIN HYDROLYS 30 ML LIQUID.PKT PO SCH ×2 (10:03→18:38)
[2022-03-22] MEDS: CALCIUM ACETATE 667 MG CAPSULE (FP) PO SCH ×3 (10:03→18:38)
[2022-03-22] MEDS: CARVEDILOL 25 MG TABLET (FP) PO SCH ×2 (10:04→21:17)
[2022-03-22] MEDS: amLODIPine BESYLATE 10 MG TABLET (FP) PO SCH (10:04)
[2022-03-22] MEDS: FOLIC ACID 1 MG TABLET (FP) PO SCH (10:04)
[2022-03-22] MEDS: VITAMIN B COMP W-C 1 EA TABLET (NEPHRO-VITE) PO SCH (10:04)
[2022-03-22] MEDS: cloNIDine-TTS 0.2 MG/24 HOURS PATCH.TDWK TD SCH (11:54)
[2022-03-22] MEDS ORDERED: SODIUM CHLORIDE 250 ML IV PRN (15:33)
[2022-03-22] MEDS: MIRTAZAPINE 15 MG TABLET (FP) PO SCH (21:17)
[2022-03-23] MEDS: CEFTAROLINE FOSAMIL ACETATE 200 MG in DEXTROSE 5%-WATER - 100 ML IVPB SCH ×3 (01:47→20:39)
[2022-03-23] MEDS: hydrALAZINE HCL 50 MG TABLET (FP) PO SCH ×4 (06:49→22:01)
[2022-03-23 08:56] LABS: BASO % 0.3 % (0-2.0); EOS % 2.6 % (0-4.5); HEMOGLOBIN 8.7 GM/dL (11.7-16.9); LYMPH % 23.8 % (8-40); MEAN CELL VOLUME 96.7 fl (80-96); MEAN PLT VOLUME 8.9 fl (7.5-11.1); MONO % 11.2 % (3.8-10.2); NEUT % 62.1 % (42.8-82.8); PLATELET COUNT 221 10^3/uL (134-434); RBC 2.79 M/mm3 (4.00-5.60); RDW 17.7 % (11.9-15.9); WHITE BLOOD COUNT 3.2 K/mm3 (4.0-10.0)
[2022-03-23 09:19] LABS: ALBUMIN 2.9 g/dl (3.4-5.0); BLOOD UREA NITROGEN 56.6 mg/dL (7-18); CALCIUM 9.1 mg/dL (8.5-10.1)
[2022-03-23 09:22] LABS: BILIRUBIN,TOTAL 0.4 mg/dL (0.2-1); CREATININE 5.5 mg/dL (0.55-1.3)
[2022-03-23 09:23] LABS: TOT PROT 6.5 g/dl (6.4-8.2)
[2022-03-23] MEDS ORDERED: LIDOCAINE VISCOUS 2% ORAL/TOP 15 ML UNIT-DOSE CUP ONE (11:40)
[2022-03-23] MEDS: CALCIUM ACETATE 667 MG CAPSULE (FP) PO SCH ×2 (12:26→18:18)
[2022-03-23] MEDS: CARVEDILOL 25 MG TABLET (FP) PO SCH ×3 (12:27→22:01)
[2022-03-23] MEDS: AMINO ACIDS/PROTEIN HYDROLYS 30 ML LIQUID.PKT PO SCH ×2 (12:27→18:18)
[2022-03-23] MEDS: FOLIC ACID 1 MG TABLET (FP) PO SCH (12:27)
[2022-03-23] MEDS: VITAMIN B COMP W-C 1 EA TABLET (NEPHRO-VITE) PO SCH (12:27)
[2022-03-23] MEDS: amLODIPine BESYLATE 10 MG TABLET (FP) PO SCH (12:28)
[2022-03-23] MEDS ORDERED: MIDAZOLAM HCL 2 MG/2 ML SINGLE DOSE VIAL ONE (12:50)
[2022-03-23 15:17] LABS: HEMATOCRIT 25.1 % (35.4-49); HEMOGLOBIN 8.1 GM/dL (11.7-16.9); MCH 31.2 pg (25.7-33.7); MCHC 32.4 g/dl (32.0-35.9); MEAN CELL VOLUME 96.2 fl (80-96); MEAN PLT VOLUME 8.9 fl (7.5-11.1); PLATELET COUNT 217 10^3/uL (134-434); RDW 18.1 % (11.9-15.9); WHITE BLOOD COUNT 2.8 K/mm3 (4.0-10.0)
[2022-03-23 15:32] LABS: CALCIUM 8.9 mg/dL (8.5-10.1)
[2022-03-23 15:33] LABS: BLOOD UREA NITROGEN 57.8 mg/dL (7-18)
[2022-03-23 15:34] LABS: CREATININE 5.9 mg/dL (0.55-1.3)
[2022-03-23] MEDS ORDERED: SODIUM CHLORIDE 250 ML IV PRN (15:41)
[2022-03-23] MEDS ORDERED: EPOETIN ALFA-EPBX 10,000 UNIT/ML VIAL SQ ONE (15:45)
[2022-03-23] MEDS: SODIUM CHLORIDE IVPB SCH (18:41)
[2022-03-23] MEDS: DAPTOMYCIN IVPB SCH (18:41)
[2022-03-23] MEDS: MIRTAZAPINE 15 MG TABLET (FP) PO SCH (21:54)
[2022-03-24] MEDS: CEFTAROLINE FOSAMIL ACETATE 200 MG in DEXTROSE 5%-WATER - 100 ML IVPB SCH ×3 (02:41→17:52)
[2022-03-24] MEDS: hydrALAZINE HCL 50 MG TABLET (FP) PO SCH ×3 (06:19→22:36)
[2022-03-24] MEDS: AMINO ACIDS/PROTEIN HYDROLYS 30 ML LIQUID.PKT PO SCH ×2 (10:35→17:52)
[2022-03-24] MEDS: FOLIC ACID 1 MG TABLET (FP) PO SCH (10:36)
[2022-03-24] MEDS: CALCIUM ACETATE 667 MG CAPSULE (FP) PO SCH ×4 (10:36→17:52)
[2022-03-24] MEDS: VITAMIN B COMP W-C 1 EA TABLET (NEPHRO-VITE) PO SCH (10:36)
[2022-03-24] MEDS: amLODIPine BESYLATE 10 MG TABLET (FP) PO SCH (10:36)
[2022-03-24] MEDS: CARVEDILOL 25 MG TABLET (FP) PO SCH ×2 (10:36→22:36)
[2022-03-24] MEDS ORDERED: EPOETIN ALFA-EPBX 4,000 UNIT/ML VIAL SQ ONE (13:31)
[2022-03-24] MEDS: LACTOBACILLUS ACIDOPHILUS 1 TABLET PO SCH (22:36)
[2022-03-24] MEDS: MIRTAZAPINE 15 MG TABLET (FP) PO SCH (22:36)
[2022-03-25] MEDS: CEFTAROLINE FOSAMIL ACETATE 200 MG in DEXTROSE 5%-WATER - 100 ML IVPB SCH ×3 (02:29→19:56)
[2022-03-25] MEDS: hydrALAZINE HCL 50 MG TABLET (FP) PO SCH ×3 (06:03→21:53)
[2022-03-25] MEDS: AMINO ACIDS/PROTEIN HYDROLYS 30 ML LIQUID.PKT PO SCH ×2 (09:29→16:59)
[2022-03-25] MEDS: FOLIC ACID 1 MG TABLET (FP) PO SCH (09:30)
[2022-03-25] MEDS: LACTOBACILLUS ACIDOPHILUS 1 TABLET PO SCH (09:30)
[2022-03-25] MEDS: CALCIUM ACETATE 667 MG CAPSULE (FP) PO SCH ×3 (09:30→16:59)
[2022-03-25] MEDS: CARVEDILOL 25 MG TABLET (FP) PO SCH ×2 (09:30→21:53)
[2022-03-25] MEDS: VITAMIN B COMP W-C 1 EA TABLET (NEPHRO-VITE) PO SCH (09:31)
[2022-03-25] MEDS: amLODIPine BESYLATE 10 MG TABLET (FP) PO SCH (09:32)
[2022-03-25] MEDS ORDERED: SODIUM CHLORIDE 250 ML IV PRN (10:12)
[2022-03-25] MEDS ORDERED: EPOETIN ALFA-EPBX 10,000 UNIT/ML VIAL SQ ONE (10:15)
[2022-03-25] MEDS ORDERED: EPOETIN ALFA-EPBX 4,000 UNIT/ML VIAL SQ ONE (11:00)
[2022-03-25 17:41] LABS: HEMOGLOBIN 9.1 GM/dL (11.7-16.9); MCH 31.5 pg (25.7-33.7); MCHC 32.5 g/dl (32.0-35.9); MEAN PLT VOLUME 8.4 fl (7.5-11.1); PLATELET COUNT 211 10^3/uL (134-434); RBC 2.88 M/mm3 (4.00-5.60); RDW 18.5 % (11.9-15.9); WHITE BLOOD COUNT 3.1 K/mm3 (4.0-10.0)
[2022-03-25 18:03] LABS: CALCIUM 9.2 mg/dL (8.5-10.1)
[2022-03-25 18:04] LABS: BLOOD UREA NITROGEN 46.2 mg/dL (7-18)
[2022-03-25 18:07] LABS: CREATININE 4.8 mg/dL (0.55-1.3)
[2022-03-25] MEDS: SODIUM CHLORIDE IVPB SCH (19:56)
[2022-03-25] MEDS: DAPTOMYCIN IVPB SCH (19:56)
[2022-03-25] MEDS: MIRTAZAPINE 15 MG TABLET (FP) PO SCH (21:53)
[2022-03-26] MEDS: CEFTAROLINE FOSAMIL ACETATE 200 MG in DEXTROSE 5%-WATER - 100 ML IVPB SCH ×3 (02:19→17:03)
[2022-03-26] MEDS: hydrALAZINE HCL 50 MG TABLET (FP) PO SCH ×3 (06:17→22:20)
[2022-03-26] MEDS: AMINO ACIDS/PROTEIN HYDROLYS 30 ML LIQUID.PKT PO SCH ×2 (09:42→16:43)
[2022-03-26] MEDS: CALCIUM ACETATE 667 MG CAPSULE (FP) PO SCH ×3 (09:42→16:44)
[2022-03-26] MEDS: VITAMIN B COMP W-C 1 EA TABLET (NEPHRO-VITE) PO SCH (09:43)
[2022-03-26] MEDS: FOLIC ACID 1 MG TABLET (FP) PO SCH (09:43)
[2022-03-26] MEDS: CARVEDILOL 25 MG TABLET (FP) PO SCH ×2 (09:43→22:20)
[2022-03-26] MEDS: amLODIPine BESYLATE 10 MG TABLET (FP) PO SCH (09:44)
[2022-03-26] MEDS: LACTOBACILLUS ACIDOPHILUS 1 TABLET PO SCH (09:44)
[2022-03-26] MEDS ORDERED: SODIUM CHLORIDE 250 ML IV PRN (10:16)
[2022-03-26] MEDS: INSULIN (NOVOLOG) ASPART 100 UNITS/ML 10ML VIAL SQ SCH (16:40)
[2022-03-26] MEDS: MIRTAZAPINE 15 MG TABLET (FP) PO SCH (22:21)
[2022-03-27] MEDS: CARVEDILOL 25 MG TABLET (FP) PO SCH ×3 (00:58→22:06)
[2022-03-27] MEDS ORDERED: CARVEDILOL 25 MG TABLET (FP) PO ONE (01:09)
[2022-03-27] MEDS: CEFTAROLINE FOSAMIL ACETATE 200 MG in DEXTROSE 5%-WATER - 100 ML IVPB SCH ×3 (02:23→18:34)
[2022-03-27] MEDS: hydrALAZINE HCL 50 MG TABLET (FP) PO SCH ×3 (05:59→22:06)
[2022-03-27] MEDS: INSULIN (NOVOLOG) ASPART 100 UNITS/ML 10ML VIAL SQ SCH ×3 (06:32→16:42)
[2022-03-27 08:36] LABS: BASO % 0.8 % (0-2.0); EOS % 3.5 % (0-4.5); HEMATOCRIT 30.8 % (35.4-49); HEMOGLOBIN 9.9 GM/dL (11.7-16.9); LYMPH % 25.9 % (8-40); MCH 31.2 pg (25.7-33.7); MCHC 32.2 g/dl (32.0-35.9); MEAN CELL VOLUME 96.9 fl (80-96); MEAN PLT VOLUME 8.6 fl (7.5-11.1); MONO % 13.1 % (3.8-10.2); NEUT % 56.7 % (42.8-82.8); PLATELET COUNT 235 10^3/uL (134-434); RBC 3.17 M/mm3 (4.00-5.60); RDW 18.2 % (11.9-15.9); WHITE BLOOD COUNT 3.2 K/mm3 (4.0-10.0)
[2022-03-27 09:03] LABS: CALCIUM 9.8 mg/dL (8.5-10.1)
[2022-03-27 09:04] LABS: ALBUMIN 3.3 g/dl (3.4-5.0); BLOOD UREA NITROGEN 39.5 mg/dL (7-18)
[2022-03-27 09:08] LABS: BILIRUBIN,TOTAL 0.4 mg/dL (0.2-1); TOT PROT 7.1 g/dl (6.4-8.2)
[2022-03-27] MEDS: AMINO ACIDS/PROTEIN HYDROLYS 30 ML LIQUID.PKT PO SCH ×2 (10:04→17:01)
[2022-03-27] MEDS: CALCIUM ACETATE 667 MG CAPSULE (FP) PO SCH ×3 (10:04→17:01)
[2022-03-27] MEDS ORDERED: EPOETIN ALFA-EPBX 10,000 UNIT/ML VIAL IVPUSH ONE (10:45)
[2022-03-27] MEDS: DAPTOMYCIN 500 MG in SODIUM CHLORIDE 50 ML IVPB SCH (13:24)
[2022-03-27] MEDS: amLODIPine BESYLATE 10 MG TABLET (FP) PO SCH (13:40)
[2022-03-27] MEDS: LACTOBACILLUS ACIDOPHILUS 1 TABLET PO SCH (13:40)
[2022-03-27] MEDS: FOLIC ACID 1 MG TABLET (FP) PO SCH (13:40)
[2022-03-27] MEDS: VITAMIN B COMP W-C 1 EA TABLET (NEPHRO-VITE) PO SCH (13:41)
[2022-03-27] MEDS ORDERED: TRIPLE LUMEN FLUSH 4 ML ML IVPUSH PRN (14:38)
[2022-03-27] MEDS ORDERED: DAPTOMYCIN 450 MG in SODIUM CHLORIDE 50 ML IVPB SCH (18:00)
[2022-03-27] MEDS: MIRTAZAPINE 15 MG TABLET (FP) PO SCH (22:05)
[2022-03-28] MEDS: CEFTAROLINE FOSAMIL ACETATE 200 MG in DEXTROSE 5%-WATER - 100 ML IVPB SCH ×3 (02:03→17:01)
[2022-03-28] MEDS: hydrALAZINE HCL 50 MG TABLET (FP) PO SCH ×4 (06:21→22:54)
[2022-03-28] MEDS: INSULIN (NOVOLOG) ASPART 100 UNITS/ML 10ML VIAL SQ SCH ×3 (06:28→17:04)
[2022-03-28] MEDS: CALCIUM ACETATE 667 MG CAPSULE (FP) PO SCH ×3 (10:37→17:01)
[2022-03-28] MEDS: AMINO ACIDS/PROTEIN HYDROLYS 30 ML LIQUID.PKT PO SCH ×2 (10:37→17:01)
[2022-03-28] MEDS: amLODIPine BESYLATE 10 MG TABLET (FP) PO SCH (10:38)
[2022-03-28] MEDS: FOLIC ACID 1 MG TABLET (FP) PO SCH (10:38)
[2022-03-28] MEDS: LACTOBACILLUS ACIDOPHILUS 1 TABLET PO SCH (10:38)
[2022-03-28] MEDS: VITAMIN B COMP W-C 1 EA TABLET (NEPHRO-VITE) PO SCH (10:38)
[2022-03-28] MEDS: CARVEDILOL 25 MG TABLET (FP) PO SCH ×2 (10:40→22:54)
[2022-03-28] MEDS: MIRTAZAPINE 15 MG TABLET (FP) PO SCH ×2 (22:55→23:01)
[2022-03-29] MEDS: CEFTAROLINE FOSAMIL ACETATE 200 MG in DEXTROSE 5%-WATER - 100 ML IVPB SCH ×3 (01:53→17:08)
[2022-03-29] MEDS: hydrALAZINE HCL 50 MG TABLET (FP) PO SCH ×3 (05:39→23:33)
[2022-03-29] MEDS: INSULIN (NOVOLOG) ASPART 100 UNITS/ML 10ML VIAL SQ SCH ×3 (06:21→16:54)
[2022-03-29] MEDS: AMINO ACIDS/PROTEIN HYDROLYS 30 ML LIQUID.PKT PO SCH ×2 (08:45→17:07)
[2022-03-29] MEDS: CALCIUM ACETATE 667 MG CAPSULE (FP) PO SCH ×3 (08:45→17:07)
[2022-03-29] MEDS: cloNIDine-TTS 0.1 MG/24 HRS PATCH.TDWK TD SCH (09:43)
[2022-03-29] MEDS: CARVEDILOL 25 MG TABLET (FP) PO SCH ×2 (09:44→23:33)
[2022-03-29] MEDS: amLODIPine BESYLATE 10 MG TABLET (FP) PO SCH (09:44)
[2022-03-29] MEDS: LACTOBACILLUS ACIDOPHILUS 1 TABLET PO SCH (09:45)
[2022-03-29] MEDS: VITAMIN B COMP W-C 1 EA TABLET (NEPHRO-VITE) PO SCH (09:46)
[2022-03-29] MEDS: FOLIC ACID 1 MG TABLET (FP) PO SCH (09:46)
[2022-03-29] MEDS: DAPTOMYCIN 500 MG in SODIUM CHLORIDE 50 ML IVPB SCH (14:15)
[2022-03-29] MEDS: MIRTAZAPINE 15 MG TABLET (FP) PO SCH (23:33)
[2022-03-30] MEDS: CEFTAROLINE FOSAMIL ACETATE 200 MG in DEXTROSE 5%-WATER - 100 ML IVPB SCH ×3 (02:03→17:16)
[2022-03-30] MEDS: INSULIN (NOVOLOG) ASPART 100 UNITS/ML 10ML VIAL SQ SCH ×3 (06:28→17:23)
[2022-03-30] MEDS: hydrALAZINE HCL 50 MG TABLET (FP) PO SCH ×3 (06:29→23:34)
[2022-03-30] MEDS: CARVEDILOL 25 MG TABLET (FP) PO SCH ×2 (09:48→23:34)
[2022-03-30] MEDS: LACTOBACILLUS ACIDOPHILUS 1 TABLET PO SCH (09:48)
[2022-03-30] MEDS: AMINO ACIDS/PROTEIN HYDROLYS 30 ML LIQUID.PKT PO SCH ×2 (09:48→17:17)
[2022-03-30] MEDS: CALCIUM ACETATE 667 MG CAPSULE (FP) PO SCH ×3 (09:48→17:17)
[2022-03-30] MEDS: FOLIC ACID 1 MG TABLET (FP) PO SCH (09:49)
[2022-03-30] MEDS: amLODIPine BESYLATE 10 MG TABLET (FP) PO SCH (09:49)
[2022-03-30] MEDS: VITAMIN B COMP W-C 1 EA TABLET (NEPHRO-VITE) PO SCH (09:49)
[2022-03-30] MEDS ORDERED: EPOETIN ALFA-EPBX 10,000 UNIT/ML VIAL IVPUSH ONE (10:00)
[2022-03-30 11:31] LABS: BASO % 0.8 % (0-2.0); EOS % 6.6 % (0-4.5); HEMATOCRIT 29.9 % (35.4-49); HEMOGLOBIN 9.8 GM/dL (11.7-16.9); LYMPH % 23.8 % (8-40); MCH 31.6 pg (25.7-33.7); MCHC 32.8 g/dl (32.0-35.9); MEAN CELL VOLUME 96.3 fl (80-96); MEAN PLT VOLUME 9.2 fl (7.5-11.1); MONO % 15.3 % (3.8-10.2); NEUT % 53.5 % (42.8-82.8); PLATELET COUNT 216 10^3/uL (134-434); RDW 18.5 % (11.9-15.9); WHITE BLOOD COUNT 3.7 K/mm3 (4.0-10.0)
[2022-03-30 11:58] LABS: ALBUMIN 3.3 g/dl (3.4-5.0); CALCIUM 9.6 mg/dL (8.5-10.1)
[2022-03-30 12:01] LABS: CREATININE 5.5 mg/dL (0.55-1.3); PHOSPHOROUS 2.9 mg/dL (2.5-4.9)
[2022-03-30 12:03] LABS: BILIRUBIN,TOTAL 0.4 mg/dL (0.2-1); TOT PROT 6.9 g/dl (6.4-8.2)
[2022-03-30 12:04] LABS: BLOOD UREA NITROGEN 79.4 mg/dL (7-18)
[2022-03-30] MEDS: MIRTAZAPINE 15 MG TABLET (FP) PO SCH (23:34)
[2022-03-31] MEDS: CEFTAROLINE FOSAMIL ACETATE 200 MG in DEXTROSE 5%-WATER - 100 ML IVPB SCH ×4 (02:06→17:10)
[2022-03-31] MEDS: INSULIN (NOVOLOG) ASPART 100 UNITS/ML 10ML VIAL SQ SCH ×3 (06:25→17:25)
[2022-03-31] MEDS: hydrALAZINE HCL 50 MG TABLET (FP) PO SCH ×3 (06:26→21:49)
[2022-03-31] MEDS: FOLIC ACID 1 MG TABLET (FP) PO SCH (09:17)
[2022-03-31] MEDS: VITAMIN B COMP W-C 1 EA TABLET (NEPHRO-VITE) PO SCH (09:17)
[2022-03-31] MEDS: AMINO ACIDS/PROTEIN HYDROLYS 30 ML LIQUID.PKT PO SCH ×2 (09:17→17:09)
[2022-03-31] MEDS: LACTOBACILLUS ACIDOPHILUS 1 TABLET PO SCH (09:18)
[2022-03-31] MEDS: CALCIUM ACETATE 667 MG CAPSULE (FP) PO SCH ×3 (09:18→17:10)
[2022-03-31] MEDS: CARVEDILOL 25 MG TABLET (FP) PO SCH ×2 (09:24→21:49)
[2022-03-31] MEDS: amLODIPine BESYLATE 10 MG TABLET (FP) PO SCH (09:24)
[2022-03-31] MEDS: DAPTOMYCIN 500 MG in SODIUM CHLORIDE 50 ML IVPB SCH (12:21)
[2022-03-31] MEDS: DRONABINOL 2.5 MG CAPSULE PO SCH (15:05)
[2022-03-31] MEDS ORDERED: EPOETIN ALFA-EPBX 10,000 UNIT/ML VIAL SQ ONE (15:42)
[2022-03-31] MEDS: MIRTAZAPINE 15 MG TABLET (FP) PO SCH (21:49)
[2022-04-01] MEDS: CEFTAROLINE FOSAMIL ACETATE 200 MG in DEXTROSE 5%-WATER - 100 ML IVPB SCH ×2 (01:18→09:47)
[2022-04-01] MEDS: hydrALAZINE HCL 50 MG TABLET (FP) PO SCH ×3 (05:58→21:22)
[2022-04-01] MEDS: INSULIN (NOVOLOG) ASPART 100 UNITS/ML 10ML VIAL SQ SCH ×3 (06:03→16:32)
[2022-04-01] MEDS: LACTOBACILLUS ACIDOPHILUS 1 TABLET PO SCH (09:45)
[2022-04-01] MEDS: CALCIUM ACETATE 667 MG CAPSULE (FP) PO SCH ×3 (09:45→17:40)
[2022-04-01] MEDS: CARVEDILOL 25 MG TABLET (FP) PO SCH ×2 (09:45→21:22)
[2022-04-01] MEDS: FOLIC ACID 1 MG TABLET (FP) PO SCH (09:45)
[2022-04-01] MEDS: AMINO ACIDS/PROTEIN HYDROLYS 30 ML LIQUID.PKT PO SCH ×2 (09:45→17:40)
[2022-04-01] MEDS: VITAMIN B COMP W-C 1 EA TABLET (NEPHRO-VITE) PO SCH (09:46)
[2022-04-01] MEDS: amLODIPine BESYLATE 10 MG TABLET (FP) PO SCH (09:46)
[2022-04-01] MEDS: DRONABINOL 2.5 MG CAPSULE PO SCH (09:46)
[2022-04-01] MEDS ORDERED: SODIUM CHLORIDE 250 ML IV PRN (10:35)
[2022-04-01] MEDS: EPOETIN ALFA-EPBX 10,000 UNIT/ML VIAL IVPUSH ONE ×2 (11:33→13:49)
[2022-04-01] MEDS: MIRTAZAPINE 15 MG TABLET (FP) PO SCH (21:21)
[2022-04-02] MEDS: hydrALAZINE HCL 50 MG TABLET (FP) PO SCH ×3 (06:19→22:18)
[2022-04-02] MEDS: INSULIN (NOVOLOG) ASPART 100 UNITS/ML 10ML VIAL SQ SCH ×3 (06:20→18:32)
[2022-04-02] MEDS: AMINO ACIDS/PROTEIN HYDROLYS 30 ML LIQUID.PKT PO SCH ×2 (11:42→18:13)
[2022-04-02] MEDS: CALCIUM ACETATE 667 MG CAPSULE (FP) PO SCH ×3 (11:42→18:13)
[2022-04-02] MEDS: VITAMIN B COMP W-C 1 EA TABLET (NEPHRO-VITE) PO SCH (11:43)
[2022-04-02] MEDS: DRONABINOL 2.5 MG CAPSULE PO SCH (11:43)
[2022-04-02] MEDS: LACTOBACILLUS ACIDOPHILUS 1 TABLET PO SCH (11:43)
[2022-04-02] MEDS: amLODIPine BESYLATE 10 MG TABLET (FP) PO SCH (11:43)
[2022-04-02] MEDS: CARVEDILOL 25 MG TABLET (FP) PO SCH ×2 (11:43→22:18)
[2022-04-02] MEDS: FOLIC ACID 1 MG TABLET (FP) PO SCH (11:43)
[2022-04-02] MEDS ORDERED: BEBTELOVIMAB (EUA) 175 MG/2 ML VIAL IVPUSH ONE (14:00)
[2022-04-02] MEDS: DAPTOMYCIN 500 MG in SODIUM CHLORIDE 50 ML IVPB SCH (15:09)
[2022-04-02] MEDS: MIRTAZAPINE 15 MG TABLET (FP) PO SCH (22:19)
[2022-04-03] MEDS: hydrALAZINE HCL 50 MG TABLET (FP) PO SCH ×3 (05:43→22:19)
[2022-04-03] MEDS: INSULIN (NOVOLOG) ASPART 100 UNITS/ML 10ML VIAL SQ SCH ×3 (06:27→17:03)
[2022-04-03] MEDS: CALCIUM ACETATE 667 MG CAPSULE (FP) PO SCH ×3 (08:00→18:03)
[2022-04-03] MEDS: amLODIPine BESYLATE 5 MG TABLET (FP) PO SCH (10:00)
[2022-04-03] MEDS ORDERED: DAPTOMYCIN 500 MG in SODIUM CHLORIDE 50 ML IVPB ONE (11:09)
[2022-04-03] MEDS: AMINO ACIDS/PROTEIN HYDROLYS 30 ML LIQUID.PKT PO SCH ×2 (11:19→18:03)
[2022-04-03 12:40] LABS: HEMATOCRIT 31.6 % (35.4-49); MCH 31.1 pg (25.7-33.7); MCHC 31.8 g/dl (32.0-35.9); MEAN CELL VOLUME 97.8 fl (80-96); PLATELET COUNT 221 10^3/uL (134-434); RBC 3.23 M/mm3 (4.00-5.60); RDW 18.9 % (11.9-15.9); WHITE BLOOD COUNT 3.1 K/mm3 (4.0-10.0)
[2022-04-03] MEDS ORDERED: EPOETIN ALFA-EPBX 4,000 UNIT/ML VIAL IVPUSH ONE (13:00)
[2022-04-03] MEDS ORDERED: SODIUM CHLORIDE 250 ML IV PRN (13:00)
[2022-04-03 13:01] LABS: CALCIUM 9.4 mg/dL (8.5-10.1)
[2022-04-03 13:04] LABS: CREATININE 4.9 mg/dL (0.55-1.3)
[2022-04-03 13:05] LABS: BLOOD UREA NITROGEN 46.2 mg/dL (7-18)
[2022-04-03] MEDS: CARVEDILOL 25 MG TABLET (FP) PO SCH ×2 (15:21→22:19)
[2022-04-03] MEDS: LACTOBACILLUS ACIDOPHILUS 1 TABLET PO SCH (15:46)
[2022-04-03] MEDS: VITAMIN B COMP W-C 1 EA TABLET (NEPHRO-VITE) PO SCH (15:46)
[2022-04-03] MEDS: DRONABINOL 2.5 MG CAPSULE PO SCH (15:47)
[2022-04-03] MEDS: FOLIC ACID 1 MG TABLET (FP) PO SCH (15:47)
[2022-04-03] MEDS: MIRTAZAPINE 15 MG TABLET (FP) PO SCH (22:19)
[2022-04-04] MEDS: hydrALAZINE HCL 50 MG TABLET (FP) PO SCH ×3 (06:06→22:18)
[2022-04-04] MEDS: INSULIN (NOVOLOG) ASPART 100 UNITS/ML 10ML VIAL SQ SCH ×3 (06:16→16:38)
[2022-04-04] MEDS: CALCIUM ACETATE 667 MG CAPSULE (FP) PO SCH ×3 (08:22→17:30)
[2022-04-04] MEDS: AMINO ACIDS/PROTEIN HYDROLYS 30 ML LIQUID.PKT PO SCH ×2 (08:22→17:27)
[2022-04-04] MEDS: LACTOBACILLUS ACIDOPHILUS 1 TABLET PO SCH (10:10)
[2022-04-04] MEDS: VITAMIN B COMP W-C 1 EA TABLET (NEPHRO-VITE) PO SCH (10:10)
[2022-04-04] MEDS: CARVEDILOL 25 MG TABLET (FP) PO SCH ×2 (10:10→22:18)
[2022-04-04] MEDS: DRONABINOL 2.5 MG CAPSULE PO SCH (10:10)
[2022-04-04] MEDS: amLODIPine BESYLATE 5 MG TABLET (FP) PO SCH (10:10)
[2022-04-04] MEDS: FOLIC ACID 1 MG TABLET (FP) PO SCH (10:10)
[2022-04-04] MEDS ORDERED: SODIUM CHLORIDE 1,000 ML IV SCH ×3 (15:15→17:30)
[2022-04-04] MEDS: MIRTAZAPINE 15 MG TABLET (FP) PO SCH (22:36)
[2022-04-05] MEDS: hydrALAZINE HCL 50 MG TABLET (FP) PO SCH (06:19)
[2022-04-05] MEDS: INSULIN (NOVOLOG) ASPART 100 UNITS/ML 10ML VIAL SQ SCH ×3 (06:24→17:02)
[2022-04-05] MEDS: CALCIUM ACETATE 667 MG CAPSULE (FP) PO SCH ×3 (08:58→16:53)
[2022-04-05] MEDS: AMINO ACIDS/PROTEIN HYDROLYS 30 ML LIQUID.PKT PO SCH ×2 (08:58→16:53)
[2022-04-05] MEDS: FOLIC ACID 1 MG TABLET (FP) PO SCH (10:09)
[2022-04-05] MEDS: CARVEDILOL 25 MG TABLET (FP) PO SCH (10:09)
[2022-04-05] MEDS: amLODIPine BESYLATE 5 MG TABLET (FP) PO SCH (10:09)
[2022-04-05] MEDS: cloNIDine-TTS 0.1 MG/24 HRS PATCH.TDWK TD SCH (10:09)
[2022-04-05] MEDS: VITAMIN B COMP W-C 1 EA TABLET (NEPHRO-VITE) PO SCH (10:09)
[2022-04-05] MEDS: LACTOBACILLUS ACIDOPHILUS 1 TABLET PO SCH (10:09)
[2022-04-05] MEDS: DRONABINOL 2.5 MG CAPSULE PO SCH (10:09)
[2022-04-05] MEDS: DEXTROSE 5%-NORMAL SALINE 1,000 ML IV SCH (11:42)
[2022-04-05] MEDS: CARVEDILOL 3.125 MG TABLET (FP) PO SCH (21:22)
[2022-04-05] MEDS: MIRTAZAPINE 15 MG TABLET (FP) PO SCH (21:25)
[2022-04-06] MEDS: INSULIN (NOVOLOG) ASPART 100 UNITS/ML 10ML VIAL SQ SCH ×3 (06:31→16:46)
[2022-04-06] MEDS: DEXTROSE 5%-NORMAL SALINE 1,000 ML IV SCH (07:00)
[2022-04-06] MEDS ORDERED: SODIUM CHLORIDE 250 ML IV PRN (07:37)
[2022-04-06] MEDS: CALCIUM ACETATE 667 MG CAPSULE (FP) PO SCH ×4 (08:00→18:03)
[2022-04-06] MEDS ORDERED: EPOETIN ALFA-EPBX 10,000 UNIT/ML VIAL SQ ONE (08:15)
[2022-04-06 09:28] LABS: HEMATOCRIT 31.9 % (35.4-49); HEMOGLOBIN 9.9 GM/dL (11.7-16.9); MCH 30.5 pg (25.7-33.7); MCHC 31.1 g/dl (32.0-35.9); MEAN CELL VOLUME 98.1 fl (80-96); MEAN PLT VOLUME 9.7 fl (7.5-11.1); PLATELET COUNT 196 10^3/uL (134-434); RBC 3.25 M/mm3 (4.00-5.60); RDW 18.7 % (11.9-15.9); WHITE BLOOD COUNT 2.7 K/mm3 (4.0-10.0)
[2022-04-06 10:14] LABS: ALBUMIN 3.6 g/dl (3.4-5.0); BLOOD UREA NITROGEN 63.6 mg/dL (7-18); CALCIUM 9.5 mg/dL (8.5-10.1)
[2022-04-06 10:16] LABS: CREATININE 6.1 mg/dL (0.55-1.3)
[2022-04-06 10:17] LABS: BILIRUBIN,TOTAL 0.4 mg/dL (0.2-1)
[2022-04-06] MEDS: DRONABINOL 2.5 MG CAPSULE PO SCH (11:44)
[2022-04-06] MEDS: DAPTOMYCIN 500 MG in SODIUM CHLORIDE 50 ML IVPB SCH (11:45)
[2022-04-06] MEDS: AMINO ACIDS/PROTEIN HYDROLYS 30 ML LIQUID.PKT PO SCH ×2 (11:45→18:03)
[2022-04-06] MEDS: VITAMIN B COMP W-C 1 EA TABLET (NEPHRO-VITE) PO SCH (11:45)
[2022-04-06] MEDS: CARVEDILOL 3.125 MG TABLET (FP) PO SCH ×2 (11:45→21:34)
[2022-04-06] MEDS: FOLIC ACID 1 MG TABLET (FP) PO SCH (11:45)
[2022-04-06] MEDS: LACTOBACILLUS ACIDOPHILUS 1 TABLET PO SCH (11:45)
[2022-04-06] MEDS: MIRTAZAPINE 15 MG TABLET (FP) PO SCH (21:34)
[2022-04-07] MEDS: DEXTROSE 5%-NORMAL SALINE 1,000 ML IV SCH ×2 (02:31→07:00)
[2022-04-07] MEDS ORDERED: INSULIN SLIDING SCALE (NOVOLOG) 1 VIAL SQ ONE (05:57)
[2022-04-07] MEDS: INSULIN (NOVOLOG) ASPART 100 UNITS/ML 10ML VIAL SQ SCH ×3 (06:04→16:43)
[2022-04-07] MEDS: AMINO ACIDS/PROTEIN HYDROLYS 30 ML LIQUID.PKT PO SCH ×2 (09:31→18:58)
[2022-04-07] MEDS: DRONABINOL 2.5 MG CAPSULE PO SCH (09:32)
[2022-04-07] MEDS: VITAMIN B COMP W-C 1 EA TABLET (NEPHRO-VITE) PO SCH (09:32)
[2022-04-07] MEDS: CALCIUM ACETATE 667 MG CAPSULE (FP) PO SCH ×3 (09:32→18:58)
[2022-04-07] MEDS: FOLIC ACID 1 MG TABLET (FP) PO SCH (09:32)
[2022-04-07] MEDS: LACTOBACILLUS ACIDOPHILUS 1 TABLET PO SCH (09:32)
[2022-04-07] MEDS: CARVEDILOL 3.125 MG TABLET (FP) PO SCH ×2 (09:33→21:31)
[2022-04-07] MEDS: MIRTAZAPINE 15 MG TABLET (FP) PO SCH (21:31)
[2022-04-08] MEDS: DEXTROSE 5%-NORMAL SALINE 1,000 ML IV SCH ×2 (00:13→14:26)
[2022-04-08] MEDS: INSULIN (NOVOLOG) ASPART 100 UNITS/ML 10ML VIAL SQ SCH ×3 (06:14→18:11)
[2022-04-08] MEDS: CALCIUM ACETATE 667 MG CAPSULE (FP) PO SCH ×3 (09:25→17:02)
[2022-04-08 13:15] LABS: HEMATOCRIT 32.1 % (35.4-49); HEMOGLOBIN 10.2 GM/dL (11.7-16.9); MCH 30.7 pg (25.7-33.7); MCHC 31.7 g/dl (32.0-35.9); MEAN CELL VOLUME 96.9 fl (80-96); MEAN PLT VOLUME 9.5 fl (7.5-11.1); PLATELET COUNT 160 10^3/uL (134-434); RBC 3.32 M/mm3 (4.00-5.60); RDW 18.5 % (11.9-15.9)
[2022-04-08] MEDS ORDERED: EPOETIN ALFA-EPBX 10,000 UNIT/ML VIAL IVPUSH ONE (13:15)
[2022-04-08 13:24] LABS: CALCIUM 9.3 mg/dL (8.5-10.1)
[2022-04-08 13:28] LABS: CREATININE 5.3 mg/dL (0.55-1.3)
[2022-04-08] MEDS: LACTOBACILLUS ACIDOPHILUS 1 TABLET PO SCH (14:25)
[2022-04-08] MEDS: AMINO ACIDS/PROTEIN HYDROLYS 30 ML LIQUID.PKT PO SCH ×2 (14:25→17:02)
[2022-04-08] MEDS: FOLIC ACID 1 MG TABLET (FP) PO SCH (14:26)
[2022-04-08] MEDS: DRONABINOL 2.5 MG CAPSULE PO SCH (14:26)
[2022-04-08] MEDS: VITAMIN B COMP W-C 1 EA TABLET (NEPHRO-VITE) PO SCH (14:26)
[2022-04-08] MEDS: CARVEDILOL 3.125 MG TABLET (FP) PO SCH ×2 (16:50→17:22)
[2022-04-08] MEDS: DAPTOMYCIN 500 MG in SODIUM CHLORIDE 50 ML IVPB SCH (17:01)
[2022-04-08] MEDS: MIRTAZAPINE 15 MG TABLET (FP) PO SCH (22:52)
[2022-04-09] MEDS: CARVEDILOL 3.125 MG TABLET (FP) PO SCH ×3 (00:34→22:12)
[2022-04-09 04:11] LABS: SARS-CoV-2 NAA Detected (Not Detected)
[2022-04-09] MEDS: INSULIN (NOVOLOG) ASPART 100 UNITS/ML 10ML VIAL SQ SCH ×3 (06:04→17:44)
[2022-04-09] MEDS: CALCIUM ACETATE 667 MG CAPSULE (FP) PO SCH ×3 (09:13→17:44)
[2022-04-09] MEDS: AMINO ACIDS/PROTEIN HYDROLYS 30 ML LIQUID.PKT PO SCH ×2 (09:13→17:44)
[2022-04-09] MEDS: LACTOBACILLUS ACIDOPHILUS 1 TABLET PO SCH (09:46)
[2022-04-09] MEDS: DRONABINOL 2.5 MG CAPSULE PO SCH (09:46)
[2022-04-09] MEDS: FOLIC ACID 1 MG TABLET (FP) PO SCH (09:46)
[2022-04-09] MEDS: VITAMIN B COMP W-C 1 EA TABLET (NEPHRO-VITE) PO SCH (09:46)
[2022-04-09] MEDS ORDERED: SODIUM CHLORIDE 250 ML IV PRN (10:31)
[2022-04-09] MEDS: DEXTROSE 5%-NORMAL SALINE 1,000 ML IV SCH (22:11)
[2022-04-09] MEDS: MIRTAZAPINE 15 MG TABLET (FP) PO SCH (22:12)
[2022-04-10] MEDS: INSULIN (NOVOLOG) ASPART 100 UNITS/ML 10ML VIAL SQ SCH ×3 (06:09→17:28)
[2022-04-10] MEDS: CALCIUM ACETATE 667 MG CAPSULE (FP) PO SCH ×3 (08:55→17:28)
[2022-04-10] MEDS: AMINO ACIDS/PROTEIN HYDROLYS 30 ML LIQUID.PKT PO SCH ×3 (08:55→17:30)
[2022-04-10] MEDS: DRONABINOL 2.5 MG CAPSULE PO SCH (10:32)
[2022-04-10] MEDS: VITAMIN B COMP W-C 1 EA TABLET (NEPHRO-VITE) PO SCH (10:32)
[2022-04-10] MEDS: FOLIC ACID 1 MG TABLET (FP) PO SCH (10:33)
[2022-04-10] MEDS: CARVEDILOL 3.125 MG TABLET (FP) PO SCH ×2 (10:33→22:31)
[2022-04-10] MEDS: LACTOBACILLUS ACIDOPHILUS 1 TABLET PO SCH (10:33)
[2022-04-10] MEDS ORDERED: DRONABINOL 5 MG CAPSULE PO SCH (15:44)
[2022-04-10] MEDS ORDERED: EPOETIN ALFA-EPBX 10,000 UNIT/ML VIAL SQ ONE (19:00)
[2022-04-10 19:09] LABS: HEMATOCRIT 31.6 % (35.4-49); HEMOGLOBIN 10.1 GM/dL (11.7-16.9); MCH 31.1 pg (25.7-33.7); MCHC 31.8 g/dl (32.0-35.9); MEAN CELL VOLUME 97.8 fl (80-96); PLATELET COUNT 159 10^3/uL (134-434); RBC 3.24 M/mm3 (4.00-5.60); RDW 18.5 % (11.9-15.9); WHITE BLOOD COUNT 2.4 K/mm3 (4.0-10.0)
[2022-04-10] MEDS: DAPTOMYCIN 500 MG in SODIUM CHLORIDE 50 ML IVPB SCH (21:27)
[2022-04-10] MEDS: MIRTAZAPINE 15 MG TABLET (FP) PO SCH (22:31)
[2022-04-11] MEDS: INSULIN (NOVOLOG) ASPART 100 UNITS/ML 10ML VIAL SQ SCH ×2 (06:06→14:09)
[2022-04-11 06:38] VITALS: TEMP 97.7
[2022-04-11] MEDS ORDERED: INSULIN SLIDING SCALE (NOVOLOG) 1 VIAL SQ ONE (06:52)
[2022-04-11] MEDS: CALCIUM ACETATE 667 MG CAPSULE (FP) PO SCH ×2 (09:49→14:10)
[2022-04-11] MEDS: AMINO ACIDS/PROTEIN HYDROLYS 30 ML LIQUID.PKT PO SCH (09:50)
[2022-04-11] MEDS: CARVEDILOL 3.125 MG TABLET (FP) PO SCH (14:05)
[2022-04-11] MEDS: LACTOBACILLUS ACIDOPHILUS 1 TABLET PO SCH (14:05)
[2022-04-11] MEDS: VITAMIN B COMP W-C 1 EA TABLET (NEPHRO-VITE) PO SCH (14:05)
[2022-04-11] MEDS: FOLIC ACID 1 MG TABLET (FP) PO SCH (14:06)
[2022-04-11 15:10] VITALS: BP 149/67; PULSE 76
== END 2022-04-11 16:52 | DRG 871 ==
LOC: JER 19:22 → JERBED 23:15 → J7W 02-28 04:52 → J5S 04-03 03:32
PROVIDERS: ADMIT Internal Medicine; ATTEND Internal Medicine
PROC: 5A1D70Z Performance of Urinary Filtration, Intermittent, Less than 6 Hours Per Day (ICD-10-PCS; 2022-02-28)
PROC: 5A1D70Z Performance of Urinary Filtration, Intermittent, Less than 6 Hours Per Day (ICD-10-PCS; 2022-03-02)
PROC: XW033H6 Introduction of Other New Technology Monoclonal Antibody into Peripheral Vein, Percutaneous Approach, New Technology Group 6 (ICD-10-PCS; principal; 2022-04-02)
DX: R78.81 Bacteremia (principal); N18.6 End stage renal disease; G93.41 Metabolic encephalopathy; U07.1 COVID-19; E87.1 Hypo-osmolality and hyponatremia; R64 Cachexia; Z68.1 Body mass index [BMI] 19.9 or less, adult; I12.0 Hypertensive chronic kidney disease with stage 5 chronic kidney disease or end stage renal disease; I38 Endocarditis, valve unspecified; I25.10 Atherosclerotic heart disease of native coronary artery without angina pectoris; K21.9 Gastro-esophageal reflux disease without esophagitis; Z99.2 Dependence on renal dialysis; F03.90 Unspecified dementia, unspecified severity, without behavioral disturbance, psychotic disturbance, mood disturbance, and anxiety; Z95.1 Presence of aortocoronary bypass graft; Z86.718 Personal history of other venous thrombosis and embolism; Z86.711 Personal history of pulmonary embolism; D63.1 Anemia in chronic kidney disease; E87.6 Hypokalemia; I95.89 Other hypotension; B95.62 Methicillin resistant Staphylococcus aureus infection as the cause of diseases classified elsewhere
CPT/HCPCS: 36415; 71045-TC-FY; 74177-TC; 78804-TC; 80048; 80053; 82550; 82962; 83036; 83605; 84100; 85025; 85027; 85651; 86140; 86803; 87040; 87186; 87340; 87517; 93005; 93010; 93306-TC; 93971; 97116-GP; 97162-GP; 99285-25; A9571; C9803-CS; J0878; J1644; P9047; Q0222; Q5106; Q9967; U0003; U0005

== ENCOUNTER 2024-05-20 16:39 | Inpatient (IN) | payer OTHER ==
[2024-05-20 17:30] VITALS: BMI 21.4
[2024-05-20 18:41] LABS: BASO % 0.4 % (0-2.0); EOS % 2.6 % (0-4.5); HEMATOCRIT 24.5 % (35.4-49); HEMOGLOBIN 8.2 GM/dL (11.7-16.9); LYMPH % 20.6 % (8-40); MCH 34.2 pg (25.7-33.7); MCHC 33.7 g/dl (32.0-35.9); MEAN CELL VOLUME 101.7 fl (80-96); MEAN PLT VOLUME 8.5 fl (7.5-11.1); MONO % 12.9 % (3.8-10.2); NEUT % 63.5 % (42.8-82.8); PLATELET COUNT 237 10^3/uL (134-434); RBC 2.41 M/mm3 (4.00-5.60); RDW 17.1 % (11.9-15.9); WHITE BLOOD COUNT 5.1 K/mm3 (4.0-10.0)
[2024-05-20 18:47] LABS: POTASSIUM 4.7 mmol/L (3.5-5.1)
[2024-05-20 18:49] LABS: CALCIUM 9.8 mg/dL (8.5-10.1)
[2024-05-20 18:50] LABS: BLOOD UREA NITROGEN 62.6 mg/dL (7-18); MAGNESIUM 2.4 mg/dL (1.8-2.4)
[2024-05-20 18:53] LABS: CREATININE 5.3 mg/dL (0.55-1.3); PHOSPHOROUS 2.5 mg/dL (2.5-4.9)
[2024-05-20 18:54] LABS: BILIRUBIN,TOTAL 0.5 mg/dL (0.2-1)
[2024-05-20 18:55] LABS: TOT PROT 7.8 g/dl (6.4-8.2)
[2024-05-20 23:11] LABS: EPI CELLS >36 /uL (0-25.1); HYALINE CASTS 1355 /uL (0-3.1); URINE APPEARANCE TURBID; URINE BACTERIA >9,000 /uL (0-1359); URINE BILIRUBIN NEGATIVE (NEGATIVE); URINE COLOR YELLOW; URINE GLUCOSE (UA) NEGATIVE (NEGATIVE); URINE KETONE NEGATIVE (NEGATIVE); URINE LEUK ESTERASE 3+ (NEGATIVE); URINE NITRITE NEGATIVE (NEGATIVE); URINE PROTEIN 3+ (NEGATIVE); URINE UROBILINOGEN 0.2 mg/dL (0.2-1.0); URINE WBC 28996 /uL (0-25.8)
[2024-05-20 23:25] LABS: URINE RBC 175.5 /uL (0-23.9); YEAST NOT PRESENT (NEGATIVE)
[2024-05-21] MEDS: CEFTRIAXONE 1 GM in DEXTROSE 5%-WATER - 50 ML IVPB ONE (01:08)
[2024-05-21 08:20] LABS: POTASSIUM 4.2 mmol/L (3.5-5.1)
[2024-05-21 08:24] LABS: CALCIUM 8.9 mg/dL (8.5-10.1); MAGNESIUM 2.4 mg/dL (1.8-2.4)
[2024-05-21 08:28] LABS: CREATININE 5.8 mg/dL (0.55-1.3)
[2024-05-21 08:33] LABS: HEMATOCRIT 21.1 % (35.4-49); MCHC 33.3 g/dl (32.0-35.9); MEAN CELL VOLUME 102.1 fl (80-96); MEAN PLT VOLUME 8.6 fl (7.5-11.1); PLATELET COUNT 208 10^3/uL (134-434); RBC 2.06 M/mm3 (4.00-5.60)
[2024-05-21] MEDS: CARVEDILOL 3.125 MG TABLET (FP) PO SCH (09:37)
[2024-05-21] MEDS: PANTOPRAZOLE 40 MG TABLET PO SCH (18:10)
[2024-05-21] MEDS: SENNOSIDES 8.6MG TABLET (FP) PO SCH (22:57)
[2024-05-21] MEDS: CEFTRIAXONE 1 GM in DEXTROSE 5%-WATER - 50 ML IVPB SCH (22:57)
[2024-05-21] MEDS: ATORVASTATIN CA 10 MG TABLET (FP) PO SCH (22:57)
[2024-05-22] MEDS: HEPARIN NA (PORCINE) 5,000 UNITS/ML 1ML VIAL SQ SCH (05:56)
[2024-05-22 08:24] LABS: POTASSIUM 4.6 mmol/L (3.5-5.1)
[2024-05-22 08:29] LABS: ALBUMIN 3.3 g/dl (3.4-5.0); BLOOD UREA NITROGEN 83.9 mg/dL (7-18); CALCIUM 8.9 mg/dL (8.5-10.1)
[2024-05-22 08:34] LABS: BILIRUBIN,TOTAL 0.6 mg/dL (0.2-1); TOT PROT 6.9 g/dl (6.4-8.2)
[2024-05-22 08:35] LABS: BASO % 0.5 % (0-2.0); EOS % 3.4 % (0-4.5); HEMATOCRIT 24.9 % (35.4-49); HEMOGLOBIN 8.5 GM/dL (11.7-16.9); MCH 34.1 pg (25.7-33.7); MCHC 34.3 g/dl (32.0-35.9); MEAN CELL VOLUME 99.6 fl (80-96); MEAN PLT VOLUME 8.6 fl (7.5-11.1); MONO % 11.6 % (3.8-10.2); NEUT % 60.5 % (42.8-82.8); PLATELET COUNT 202 10^3/uL (134-434); RDW 17.4 % (11.9-15.9); WHITE BLOOD COUNT 5.2 K/mm3 (4.0-10.0)
[2024-05-22] MEDS ORDERED: SODIUM CHLORIDE 250 ML IV PRN (11:00)
[2024-05-22] MEDS: IRON SUCROSE INJECTION 200 MG in SODIUM CHLORIDE 100 ML IVPB ONE (11:38)
[2024-05-23] MEDS: MINERAL OIL ENEMA 133 ML ENEMA RC ONE (12:26)
[2024-05-23] MEDS ORDERED: hydrALAZINE HCL 20 MG/ML VIAL IVPUSH PRN (13:42)
[2024-05-23] MEDS: NIFEdipine E.R. 30 MG TABLET PO SCH (18:28)
[2024-05-23] MEDS ORDERED: CARVEDILOL 3.125 MG TABLET (FP) PO SCH (22:00)
[2024-05-23] MEDS: POLYETHYLENE GLYCOL (HEALTHYLAX) 3350 17 GM PACKET PO SCH (23:16)
[2024-05-23] MEDS: CARVEDILOL 6.25 MG TABLET (FP) PO SCH (23:16)
[2024-05-24] MEDS ORDERED: SODIUM CHLORIDE 250 ML IV PRN (08:10)
[2024-05-24] MEDS: EPOETIN ALFA-EPBX 4,000 UNIT/ML VIAL IVPUSH ONE (10:34)
[2024-05-24] MEDS: DRONABINOL 5 MG CAPSULE PO SCH (13:38)
[2024-05-24] MEDS: TAMSULOSIN HCL 0.4 MG CAP PO SCH (13:41)
[2024-05-24] MEDS: MIRTAZAPINE 15 MG TABLET (FP) PO SCH (22:26)
[2024-05-25] MEDS: PNEUMOC 20-VAL CONJ-DIP CRM/PF 0.5 ML SYRINGE IM ONE (13:34)
[2024-05-25] MEDS ORDERED: HALOPERIDOL LACTATE 5 MG/ML IM ONE (16:06)
[2024-05-25] MEDS: HALOPERIDOL LACTATE 5 MG/ML IM ONE (16:23)
[2024-05-25] MEDS ORDERED: HALOPERIDOL LACTATE 5 MG/ML IM PRN (20:03)
[2024-05-25] MEDS: QUEtiapine FUMARATE 25 MG TABLET PO SCH (22:44)
[2024-05-26] MEDS ORDERED: SODIUM CHLORIDE 250 ML IV PRN (08:47)
[2024-05-26] MEDS: EPOETIN ALFA-EPBX 10,000 UNIT/ML VIAL SQ ONE (09:00)
[2024-05-26 09:04] LABS: HEMATOCRIT 20.7 % (35.4-49); MCH 33.9 pg (25.7-33.7); MCHC 33.8 g/dl (32.0-35.9); MEAN CELL VOLUME 100.4 fl (80-96); MEAN PLT VOLUME 8.1 fl (7.5-11.1); PLATELET COUNT 188 10^3/uL (134-434); RBC 2.06 M/mm3 (4.00-5.60); RDW 16.2 % (11.9-15.9); WHITE BLOOD COUNT 4.1 K/mm3 (4.0-10.0)
[2024-05-26 09:20] LABS: POTASSIUM 3.9 mmol/L (3.5-5.1)
[2024-05-26 09:23] LABS: ALBUMIN 3.2 g/dl (3.4-5.0); CALCIUM 8.5 mg/dL (8.5-10.1)
[2024-05-26 09:26] LABS: CREATININE 5.9 mg/dL (0.55-1.3)
[2024-05-26 09:28] LABS: BILIRUBIN,TOTAL 0.5 mg/dL (0.2-1); TOT PROT 6.6 g/dl (6.4-8.2)
[2024-05-26 09:33] LABS: BLOOD UREA NITROGEN 35.6 mg/dL (7-18)
[2024-05-26 17:07] VITALS: BP 138/70; PULSE 74; RESP 16; TEMP 98
== END 2024-05-26 18:11 | DRG 811 ==
LOC: JER 16:39 → JERBED 20:45 → J4S 23:54 → OBSVTOIN 05-22 13:26
PROVIDERS: ADMIT Internal Medicine; ATTEND Internal Medicine
PROC: 30233N1 Transfusion of Nonautologous Red Blood Cells into Peripheral Vein, Percutaneous Approach (ICD-10-PCS; 2024-05-21)
PROC: 5A1D70Z Performance of Urinary Filtration, Intermittent, Less than 6 Hours Per Day (ICD-10-PCS; 2024-05-22)
PROC: 0T9B70Z Drainage of Bladder with Drainage Device, Via Natural or Artificial Opening (ICD-10-PCS; principal; 2024-05-24)
PROC: 5A1D70Z Performance of Urinary Filtration, Intermittent, Less than 6 Hours Per Day (ICD-10-PCS; 2024-05-24)
PROC: 5A1D70Z Performance of Urinary Filtration, Intermittent, Less than 6 Hours Per Day (ICD-10-PCS; 2024-05-26)
DX: D64.9 Anemia, unspecified (principal); N18.6 End stage renal disease; N39.0 Urinary tract infection, site not specified; I12.0 Hypertensive chronic kidney disease with stage 5 chronic kidney disease or end stage renal disease; J90 Pleural effusion, not elsewhere classified; I25.10 Atherosclerotic heart disease of native coronary artery without angina pectoris; K21.9 Gastro-esophageal reflux disease without esophagitis; F03.90 Unspecified dementia, unspecified severity, without behavioral disturbance, psychotic disturbance, mood disturbance, and anxiety; E78.5 Hyperlipidemia, unspecified; D69.6 Thrombocytopenia, unspecified; H54.8 Legal blindness, as defined in USA; B96.20 Unspecified Escherichia coli [E. coli] as the cause of diseases classified elsewhere; E11.22 Type 2 diabetes mellitus with diabetic chronic kidney disease; N20.0 Calculus of kidney; K56.41 Fecal impaction; D63.1 Anemia in chronic kidney disease; K57.90 Diverticulosis of intestine, part unspecified, without perforation or abscess without bleeding; R41.82 Altered mental status, unspecified; N40.1 Benign prostatic hyperplasia with lower urinary tract symptoms; R33.8 Other retention of urine; Z95.1 Presence of aortocoronary bypass graft; Z99.2 Dependence on renal dialysis
CPT/HCPCS: 36415; 36430; 70450-TC; 71045-TC-FY; 74176-TC; 80048; 80053; 80061; 81003; 82272; 82607; 82728; 83036; 83540; 83550; 83735; 84100; 84443; 84466; 84484; 85025; 85027; 86704; 86803; 86850; 86900; 86901; 86922; 87086; 87186; 87340; 87517; 90677; 93005; 93010; 99285-25; G0009; G0378; J1644; J1756; P9038; P9058; Q5106

== ENCOUNTER 2024-06-13 22:47 | Emergency (ER) | payer OTHER ==
[2024-06-13 23:09] VITALS: BP 146/62; PULSE 75; RESP 16; TEMP 98.8; BMI 22.3
== END 2024-06-14 02:15 | disposition home or self-care (01) ==
LOC: JER 22:47
DX: T82.838A Hemorrhage due to vascular prosthetic devices, implants and grafts, initial encounter (principal); Y83.1 Surgical operation with implant of artificial internal device as the cause of abnormal reaction of the patient, or of later complication, without mention of misadventure at the time of the procedure
CPT/HCPCS: 99283-25

== ENCOUNTER 2025-01-30 15:09 | Inpatient (IN) | payer OTHER ==
[2025-01-30 16:36] LABS: BASO % 0.4 % (0-2.0); EOS % 3.4 % (0-4.5); HEMATOCRIT 32.5 % (35.4-49); HEMOGLOBIN 10.8 GM/dL (11.7-16.9); LYMPH % 29.7 % (8-40); MCH 32.9 pg (25.7-33.7); MCHC 33.4 g/dl (32.0-35.9); MEAN CELL VOLUME 98.5 fl (80-96); MEAN PLT VOLUME 9.4 fl (7.5-11.1); NEUT % 56.5 % (42.8-82.8); PLATELET COUNT 184 10^3/uL (134-434); RDW 15.3 % (11.9-15.9); WHITE BLOOD COUNT 5.3 K/mm3 (4.0-10.0)
[2025-01-30 16:44] LABS: INR 0.93 (0.83-1.09); PROTHROMBIN TIME (PATIENT) 10.1 SEC (9.7-13.0)
[2025-01-30 16:45] LABS: VENOUS BASE EXCESS 3.6 mmol/L (-2-2); VENOUS O2 SATURATION 44.7 % (70-80); VENOUS PH 7.356 (7.310-7.410)
[2025-01-30 17:03] LABS: POTASSIUM 3.2 mmol/L (3.5-5.1)
[2025-01-30 17:05] LABS: ALBUMIN 3.8 g/dl (3.4-5.0); CALCIUM 9.8 mg/dL (8.5-10.1)
[2025-01-30 17:06] LABS: BLOOD UREA NITROGEN 69.6 mg/dL (7-18)
[2025-01-30 17:10] LABS: BILIRUBIN,TOTAL 0.4 mg/dL (0.2-1); TOT PROT 7.7 g/dl (6.4-8.2)
[2025-01-30] MEDS ORDERED: INSULIN REGULAR HUMAN 100 UNITS/ML *VIAL ONE (20:40)
[2025-01-30] MEDS: INSULIN (NOVOLOG) ASPART 100 UNITS/ML 10ML VIAL SQ ONE (20:43)
[2025-01-30] MEDS ORDERED: INSULIN ASPART SLIDING SCALE (NOVOLOG) 1 VIAL SQ SCH (22:00)
[2025-01-30] MEDS: INSULIN ASPART SLIDING SCALE (NOVOLOG) 1 VIAL SQ SCH (22:31)
[2025-01-30] MEDS: HEPARIN NA (PORCINE) 5,000 UNITS/ML 1ML VIAL SQ SCH (22:31)
[2025-01-30 22:50] VITALS: BMI 16.8
[2025-01-31 06:32] LABS: HEMATOCRIT 34.5 % (35.4-49); HEMOGLOBIN 11.5 GM/dL (11.7-16.9); MCH 33.1 pg (25.7-33.7); MCHC 33.3 g/dl (32.0-35.9); MEAN CELL VOLUME 99.4 fl (80-96); MEAN PLT VOLUME 9.1 fl (7.5-11.1); PLATELET COUNT 173 10^3/uL (134-434); RBC 3.48 M/mm3 (4.00-5.60); WHITE BLOOD COUNT 5.5 K/mm3 (4.0-10.0)
[2025-01-31 06:50] LABS: CHLORIDE 104 mmol/L (98-107); SODIUM 144 mmol/L (136-145)
[2025-01-31 06:54] LABS: CALCIUM 9.5 mg/dL (8.5-10.1)
[2025-01-31 06:55] LABS: ALBUMIN 3.6 g/dl (3.4-5.0); ANION GAP 9 mmol/L (4-13); BLOOD UREA NITROGEN 76.4 mg/dL (7-18); CO2 31 mmol/L (21-32); GLUCOSE,RANDOM 81 mg/dL (74-106); MAGNESIUM 2.7 mg/dL (1.8-2.4)
[2025-01-31 06:58] LABS: PHOSPHOROUS 2.9 mg/dL (2.5-4.9); SGOT/AST 32 U/L (15-37); SGPT/ALT 33 U/L (13-61)
[2025-01-31 06:59] LABS: BILIRUBIN,TOTAL 0.5 mg/dL (0.2-1); TOT PROT 7.1 g/dl (6.4-8.2)
[2025-01-31 07:00] LABS: ALK PHOS 98 U/L (45-117); CREATININE 7.9 mg/dL (0.55-1.3)
[2025-01-31] MEDS: INSULIN ASPART SLIDING SCALE (NOVOLOG) 1 VIAL SQ SCH (16:57)
[2025-01-31] MEDS: SEVELAMER CARBONATE 0.8 GM POWDER PACKET PO SCH (17:19)
[2025-01-31] MEDS ORDERED: SODIUM CHLORIDE 250 ML IV PRN (19:20)
[2025-01-31] MEDS: AMINO ACIDS 4.25%/D5W 1,000 ML IV SCH (20:50)
[2025-01-31] MEDS: ATORVASTATIN CA 20 MG TABLET (FP) PO SCH (21:15)
[2025-02-01 07:10] LABS: CHLORIDE 103 mmol/L (98-107); POTASSIUM 3.2 mmol/L (3.5-5.1); SODIUM 142 mmol/L (136-145)
[2025-02-01 07:14] LABS: CALCIUM 9.2 mg/dL (8.5-10.1)
[2025-02-01 07:15] LABS: ALBUMIN 3.3 g/dl (3.4-5.0); BLOOD UREA NITROGEN 91.6 mg/dL (7-18); GLUCOSE,RANDOM 185 mg/dL (74-106); HEMATOCRIT 31.9 % (35.4-49); HEMOGLOBIN 10.6 GM/dL (11.7-16.9); MAGNESIUM 2.6 mg/dL (1.8-2.4); MCHC 33.4 g/dl (32.0-35.9); MEAN PLT VOLUME 9.4 fl (7.5-11.1); PLATELET COUNT 164 10^3/uL (134-434); RBC 3.22 M/mm3 (4.00-5.60); RDW 15.1 % (11.9-15.9); WHITE BLOOD COUNT 3.9 K/mm3 (4.0-10.0)
[2025-02-01 07:18] LABS: ANION GAP 11 mmol/L (4-13); CO2 28 mmol/L (21-32); PHOSPHOROUS 3.5 mg/dL (2.5-4.9); SGOT/AST 26 U/L (15-37); SGPT/ALT 28 U/L (13-61)
[2025-02-01 07:19] LABS: BILIRUBIN,TOTAL 0.5 mg/dL (0.2-1); CREATININE 9.1 mg/dL (0.55-1.3); TOT PROT 6.7 g/dl (6.4-8.2)
[2025-02-01 07:20] LABS: ALK PHOS 90 U/L (45-117)
[2025-02-01] MEDS: ASPIRIN COATED 81 MG TABLET.EC PO SCH (12:16)
[2025-02-01] MEDS: PANTOPRAZOLE 40 MG TABLET PO SCH (12:17)
[2025-02-01] MEDS: AZITHROMYCIN 1% OPHTH SOLN 1 BOTTLE OU SCH (13:46)
[2025-02-01] MEDS: MIRTAZAPINE 15 MG TABLET (FP) PO SCH (21:51)
[2025-02-02 07:33] LABS: HEMATOCRIT 33.3 % (35.4-49); HEMOGLOBIN 11.3 GM/dL (11.7-16.9); MCH 33.3 pg (25.7-33.7); MCHC 33.9 g/dl (32.0-35.9); MEAN CELL VOLUME 98.2 fl (80-96); MEAN PLT VOLUME 9.2 fl (7.5-11.1); PLATELET COUNT 168 10^3/uL (134-434); RBC 3.39 M/mm3 (4.00-5.60); RDW 14.7 % (11.9-15.9)
[2025-02-02 09:18] LABS: CALCIUM 9.3 mg/dL (8.5-10.1)
[2025-02-02 09:19] LABS: ALBUMIN 3.4 g/dl (3.4-5.0); BLOOD UREA NITROGEN 49.1 mg/dL (7-18); MAGNESIUM 2.2 mg/dL (1.8-2.4)
[2025-02-02 09:22] LABS: CREATININE 5.7 mg/dL (0.55-1.3); PHOSPHOROUS 1.9 mg/dL (2.5-4.9)
[2025-02-02 09:23] LABS: BILIRUBIN,TOTAL 0.6 mg/dL (0.2-1); TOT PROT 6.8 g/dl (6.4-8.2)
[2025-02-02] MEDS: POTASSIUM CHLORIDE ORAL LIQUID 20 MEQ/15 ML PO ONE (15:49)
[2025-02-02] MEDS ORDERED: SODIUM CHLORIDE 250 ML IV PRN (16:26)
[2025-02-02] MEDS: EPOETIN ALFA-EPBX 3,000 UNIT/ML VIAL SQ ONE (17:32)
[2025-02-03] MEDS: TAMSULOSIN HCL 0.4 MG CAP PO SCH (09:19)
[2025-02-04 09:14] LABS: HEMATOCRIT 30.1 % (35.4-49); HEMOGLOBIN 10.4 GM/dL (11.7-16.9); MCH 33.6 pg (25.7-33.7); MCHC 34.7 g/dl (32.0-35.9); MEAN CELL VOLUME 96.7 fl (80-96); MEAN PLT VOLUME 8.5 fl (7.5-11.1); PLATELET COUNT 134 10^3/uL (134-434); RBC 3.11 M/mm3 (4.00-5.60); RDW 14.9 % (11.9-15.9); WHITE BLOOD COUNT 3.5 K/mm3 (4.0-10.0)
[2025-02-04 09:40] LABS: POTASSIUM 3.3 mmol/L (3.5-5.1)
[2025-02-04 09:45] LABS: ALBUMIN 3.6 g/dl (3.4-5.0); CALCIUM 9.7 mg/dL (8.5-10.1)
[2025-02-04 09:46] LABS: BLOOD UREA NITROGEN 37.9 mg/dL (7-18)
[2025-02-04 09:49] LABS: PHOSPHOROUS 1.7 mg/dL (2.5-4.9)
[2025-02-04 09:50] LABS: BILIRUBIN,TOTAL 0.6 mg/dL (0.2-1); TOT PROT 6.3 g/dl (6.4-8.2)
[2025-02-04] MEDS: AMINO ACIDS 4.25%/D5W 1,000 ML IV SCH (12:41)
[2025-02-05 08:46] LABS: HEMATOCRIT 29.8 % (35.4-49); HEMOGLOBIN 9.9 GM/dL (11.7-16.9); MCH 32.8 pg (25.7-33.7); MCHC 33.1 g/dl (32.0-35.9); MEAN CELL VOLUME 98.9 fl (80-96); MEAN PLT VOLUME 8.9 fl (7.5-11.1); PLATELET COUNT 133 10^3/uL (134-434); RBC 3.01 M/mm3 (4.00-5.60); RDW 14.8 % (11.9-15.9); WHITE BLOOD COUNT 3.5 K/mm3 (4.0-10.0)
[2025-02-05 09:05] LABS: POTASSIUM 3.6 mmol/L (3.5-5.1)
[2025-02-05 09:12] LABS: CALCIUM 9.2 mg/dL (8.5-10.1); MAGNESIUM 1.9 mg/dL (1.8-2.4)
[2025-02-05 09:13] LABS: BLOOD UREA NITROGEN 57.2 mg/dL (7-18)
[2025-02-05 09:16] LABS: CREATININE 5.5 mg/dL (0.55-1.3)
[2025-02-05] MEDS: NAPH,MB-DB/K PH,MBDB POWDER PACKET PO ONE (14:15)
[2025-02-05] MEDS: THIAMINE HCL 200 MG/2 ML VIAL IVPB SCH (15:37)
[2025-02-06] MEDS ORDERED: SODIUM CHLORIDE 250 ML IV PRN (07:59)
[2025-02-06] MEDS ORDERED: MIDAZOLAM HCL 2 MG/2 ML SINGLE DOSE VIAL ONE (09:41)
[2025-02-06] MEDS ORDERED: FENTANYL CITRATE/PF 50 MCG/ML VIAL ONE (09:41)
[2025-02-06] MEDS: FENTANYL CITRATE/PF 50 MCG/ML VIAL IVPUSH ONE (09:44)
[2025-02-06] MEDS: MIDAZOLAM HCL 2 MG/2 ML SINGLE DOSE VIAL IVPUSH ONE ×2 (09:44→09:53)
[2025-02-06] MEDS: EPOETIN ALFA-EPBX 4,000 UNIT/ML VIAL SQ ONE (15:28)
[2025-02-07 08:21] LABS: ABSOLUTE IMMATURE GRANULOCYTES 0.01 x10^3/uL (0.0-0.031); BASOPHILS # 0.01 x10^3/uL (0.01-0.08); EOSINOPHIL % 1.2 % (0.8-7.0); EOSINOPHILS # 0.05 x10^3/uL (0.04-0.54); HEMATOCRIT 31.1 % (40.1-51.0); HEMOGLOBIN 10.6 g/dL (13.7-17.5); MCHC 34.1 g/dl (32.3-36.5); MEAN CELL VOLUME 95.4 fl (79.0-92.2); MONOCYTE # 0.53 x10^3/uL (0.30-0.82); MONOCYTE % 12.3 % (5.3-12.2); PLATELET COUNT # 131 x10^3/uL (163-337); RDW 13.4 % (12.2-16.4)
[2025-02-07 08:37] LABS: POTASSIUM 3.3 mmol/L (3.5-5.1)
[2025-02-07 08:42] LABS: ALBUMIN 3.9 g/dl (3.4-5.0); CALCIUM 9.5 mg/dL (8.5-10.1)
[2025-02-07 08:43] LABS: BLOOD UREA NITROGEN 38.1 mg/dL (7-18); MAGNESIUM 1.8 mg/dL (1.8-2.4)
[2025-02-07 08:45] LABS: CREATININE 4.1 mg/dL (0.55-1.3)
[2025-02-07 08:47] LABS: BILIRUBIN,TOTAL 0.8 mg/dL (0.2-1); TOT PROT 6.9 g/dl (6.4-8.2)
[2025-02-07] MEDS: POTASSIUM CHLORIDE TABS 20 MEQ TABLET.ER (FP) PO ONE (17:18)
[2025-02-07] MEDS ORDERED: SODIUM CHLORIDE 250 ML IV PRN (18:24)
[2025-02-08 09:59] LABS: ABSOLUTE IMMATURE GRANULOCYTES 0.01 x10^3/uL (0.0-0.031); BASOPHILS # 0.02 x10^3/uL (0.01-0.08); EOSINOPHIL % 2.6 % (0.8-7.0); EOSINOPHILS # 0.13 x10^3/uL (0.04-0.54); HEMATOCRIT 28.9 % (40.1-51.0); HEMOGLOBIN 10.1 g/dL (13.7-17.5); MCHC 34.9 g/dl (32.3-36.5); MEAN PLT VOLUME 11.4 fl (9.4-12.4); MONOCYTE # 0.65 x10^3/uL (0.30-0.82); MONOCYTE % 12.8 % (5.3-12.2); PLATELET COUNT # 137 x10^3/uL (163-337); RDW 13.3 % (12.2-16.4)
[2025-02-08 10:12] LABS: POTASSIUM 3.6 mmol/L (3.5-5.1)
[2025-02-08 10:14] LABS: CALCIUM 9.4 mg/dL (8.5-10.1)
[2025-02-08 10:15] LABS: ALBUMIN 3.6 g/dl (3.4-5.0); BLOOD UREA NITROGEN 59.7 mg/dL (7-18); MAGNESIUM 1.8 mg/dL (1.8-2.4)
[2025-02-08 10:18] LABS: CREATININE 5.2 mg/dL (0.55-1.3)
[2025-02-08 10:20] LABS: BILIRUBIN,TOTAL 0.5 mg/dL (0.2-1); TOT PROT 6.6 g/dl (6.4-8.2)
[2025-02-08 14:16] VITALS: BP 114/63; PULSE 97; RESP 19; TEMP 97.2
== END 2025-02-08 14:49 | DRG 884 ==
LOC: JER 15:09 → JERBED 17:44 → J8W 21:42 → J4S 22:05 → OBSVTOIN 02-01 14:14
PROVIDERS: ADMIT Student in an Organized Health Care Education/Training Program
PROC: 5A1D70Z Performance of Urinary Filtration, Intermittent, Less than 6 Hours Per Day (ICD-10-PCS; 2025-02-01)
PROC: 5A1D70Z Performance of Urinary Filtration, Intermittent, Less than 6 Hours Per Day (ICD-10-PCS; 2025-02-03)
PROC: 0DH63UZ Insertion of Feeding Device into Stomach, Percutaneous Approach (ICD-10-PCS; principal; 2025-02-06)
PROC: BD12ZZZ Fluoroscopy of Stomach (ICD-10-PCS; 2025-02-06)
PROC: 5A1D70Z Performance of Urinary Filtration, Intermittent, Less than 6 Hours Per Day (ICD-10-PCS; 2025-02-06)
PROC: 5A1D70Z Performance of Urinary Filtration, Intermittent, Less than 6 Hours Per Day (ICD-10-PCS; 2025-02-08)
DX: F03.90 Unspecified dementia, unspecified severity, without behavioral disturbance, psychotic disturbance, mood disturbance, and anxiety (principal); N18.6 End stage renal disease; E43 Unspecified severe protein-calorie malnutrition; I12.0 Hypertensive chronic kidney disease with stage 5 chronic kidney disease or end stage renal disease; R64 Cachexia; Z68.1 Body mass index [BMI] 19.9 or less, adult; E78.5 Hyperlipidemia, unspecified; I25.10 Atherosclerotic heart disease of native coronary artery without angina pectoris; Z95.1 Presence of aortocoronary bypass graft; E11.22 Type 2 diabetes mellitus with diabetic chronic kidney disease; E11.649 Type 2 diabetes mellitus with hypoglycemia without coma; R62.7 Adult failure to thrive; K21.9 Gastro-esophageal reflux disease without esophagitis; D64.9 Anemia, unspecified; K59.00 Constipation, unspecified; E87.6 Hypokalemia; I45.10 Unspecified right bundle-branch block; N40.0 Benign prostatic hyperplasia without lower urinary tract symptoms; R68.89 Other general symptoms and signs; E83.39 Other disorders of phosphorus metabolism; Z99.2 Dependence on renal dialysis
CPT/HCPCS: 0241U-QW; 36415; 49440; 70450-TC; 70551-TC; 71045-TC-FY; 74018-TC-FY; 80048; 80053; 82140; 82272; 82803; 82962; 83605; 83735; 84100; 84439; 84443; 84484; 85025; 85027; 85610; 85730; 86704; 86803; 86850; 86900; 86901; 87040; 87081; 87340; 87517; 93005; 93010; 99285-25; G0378; J1644; Q5106